=== PATIENT | female | born 1990 | race African-American/Black ===

== ENCOUNTER 2023-05-29 10:19 | Emergency (ER) | payer OTHER, SELFPAY ==
--- NOTE | ~2023-05-29 | XR_ITS ---
EXAMINATION: XR chest 2V DATE: 05/29/2023 10:52 INDICATION: Chest pain TECHNIQUE: PA and lateral views of the chest are obtained. COMPARISON: 01/30/2023 FINDINGS: The lungs are free of acute opacities. No pleural effusion or pneumothorax. The cardiomedia stinal silhouette is normal. There are 46 degrees of thoracic dextroscoliosis. IMPRESSION: 1. No acute cardiopulmonary abnormality. Reviewed, dictated and finalized at location L. PAINTER
[2023-05-29 10:23] VITALS: BP 121/85; PULSE 78; RESP 16; O2SAT 100
--- NOTE | 2023-05-29 10:30 | ECG_ITS ---
Measurements Intervals [place] Rate: 83 P: 57 [place]: 163 QRS: 22 QRSD: 90 T: 43 QT: 353 QTc: 415 Interpretive Statements SINUS RHYTHM NORMAL NORMAL ELECTROCARDIOGRAM NO PREVIOUS ECG AVAILABLE FOR COMPARISON Electronically Signed On 05-29-2023 17:52:52 DIP FILLER by Nelson Lamar M.D.
[2023-05-29 10:39] LABS: Basophils Absolute Auto 0.1 K/mm3 (0.0-0.1); Basophils Percent Auto 0.8 % (0.2-1.2); Eosinophils Absolute Auto 0.3 K/mm3 (0-0.3); Eosinophils Percent Auto 4.1 % (0-4.4); Hematocrit 39.4 % (37.0-47.0); Hemoglobin 12.6 g/dL (12.0-15.0); Immature Granulocyte Absolute 0.02 K/mm3 (0.00-0.031); Immature Granulocyte Percent A 0.3 % (0-0.5); Lymphocytes Absolute Auto 2.67 K/mm3 (0.9-3.2); Lymphocytes Percent Auto 40.3 % (18.3-44.2); Mean Corpuscular Hemoglobin 28.1 pg (26-34); Mean Corpuscular Volume 87.9 fl (80-100); Mean Platelet Volume 10.2 fl (7.4-10.4); Monocytes Absolute Auto 0.4 K/mm3 (0.1-0.6); Monocytes Percent Auto 6.2 % (2.6-8.5); Neutrophils Absolute Auto 3.2 K/mm3 (1.3-6.7); Neutrophils Percent Auto 48.3 % (45.5-73.1); Platelet Count Result 275 k/mm3 (150-375); Red Blood Count 4.48 M/mm3 (4.2-5.4); Red Cell Distribution Width 12.8 % (11.5-14.5); White Blood Count 6.6 K/mm3 (4.5-10.0)
[2023-05-29 10:43] VITALS: BP 122/85; PULSE 82; RESP 21; O2SAT 100
[2023-05-29 10:51] LABS: Alanine Aminotransferase 13 U/L (6-35); Albumin Level 4.2 g/dL (3.5-5.1); Alkaline Phosphatase 60 U/L (38-126); Anion Gap 5 mmol/L (8-16); Aspartate Amino Transferase 23 U/L (14-36); Bilirubin,Total 0.4 mg/dL (0.2-1.3); Blood Urea Nitrogen 12 mg/dL (7-17); Calcium 9.4 mg/dL (8.4-10.2); Carbon Dioxide 18 mmol/L (22-30); Chloride 107 mmol/L (98-107); Estimated CRCL calculation 110 ml/min; Estimated Glomerular Filt Rate > 60; Glucose 122 mg/dL (65-110); Lipase 282 U/L (23-300); Potassium 3.5 mmol/L (3.4-5.0); Sodium 130 mmol/L (137-145)
[2023-05-29 11:00] LABS: Troponin I < 0.012 ng/mL (0.000-0.034)
[2023-05-29 11:28] VITALS: PULSE 74
[2023-05-29 11:28] LABS: Prothrombin Time 13.4 Seconds (11.1-14.7)
[2023-05-29 11:29] LABS: Partial Thromboplastin Time 27.5 SECONDS (22.3-36.8)
[2023-05-29 12:01] VITALS: PULSE 80; RESP 16; O2SAT 100
[2023-05-29] MEDS: KETOROLAC 30 MG/ML VIAL (*BKC) IV PUSH (13:17)
--- NOTE | 2023-05-29 13:30 | ECG_ITS ---
Measurements Intervals [place] Rate: 74 P: 47 [place]: 157 QRS: 9 QRSD: 89 T: 18 QT: 361 QTc: 402 Interpretive Statements SINUS RHYTHM NORMAL ELECTROCARDIOGRAM COMPARED TO ECG 05/29/2023 10:28:10 NO SIGNIFICANT CHANGES Electronically Signed On 05-29-2023 18:05:35 POLE MAKER by Nelson Lamar M.D.
[2023-05-29 13:52] LABS: Troponin I < 0.012 ng/mL (0.000-0.034)
--- NOTE | 2023-05-29 14:15 | ED.CHESTPAIN ---
HPI - Chest Pain General Chief Complaint: Chest Pain Stated Complaint: CP, headache Time Seen by Provider: 05/29/23 12:05 History of Present Illness HPI narrative: Patient is a 32-year-old female who presents ER with multiple complaints. First complaint is aching headache and back/neck pain. Chronic pain for her related to her scoliosis. She takes meloxicam home. 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 No numbness or weakness to the leg. She developed some central chest tightness with lightheadedness small at work. EMS was called and she received aspirin and nitroglycerin. This helped her discomfort. She is in no distress this time. She has history of asthma but has no wheezing and did not receive a breathing treatment. No history of heart disease. Related Data Allergies Allergy/AdvReac Type Severity Reaction Status Date / Time No Known Allergies Allergy Verified 05/29/23 10:32 Review of Systems Review of Systems: All systems reviewed & are unremarkable except as noted in HPI and below Constitutional: Constitutional: Denies chills, Denies fatigue and Denies fever(s) ENT: Reports system reviewed and no additional complaints, except as documented Cardiovascular: Cardiovascular: Reports chest pain, Denies rapid heart rate and Denies radiating jaw, neck or arm pain Respiratory: Respiratory: Reports no additional respiratory complaints Gastrointestinal: Gastrointestinal: Reports no additional gastrointestinal complaints Musculoskeletal: Musculoskeletal: Reports back pain, Denies myalgias, Denies arthralgias and Denies joint swelling Neurologic: Reports headache(s), Denies focal weakness and Denies numbness PMFSH Past Medical History Medical History (Updated 05/29/23 @ 14:21 by Christofer Bennett MD) Pre-diabetes Scoliosis Surgical History Surgical History (Updated 05/29/23 @ 14:21 by Christofer Bennett MD) No pertinent past surgical history Exam Narrative: GENERAL: Well-appearing, well-nourished, and in no acute distress. HEAD: Normocephalic, atraumatic. EYES: PERRL and EOMI. ENT: Mucous membranes moist. TMs normal bilaterally. No cerumen impaction. NECK: Supple. Full range of motion without on tenderness. CHEST: Clear to auscultation. No respiratory distress. HEART: Regular rate and rhythm. Normal peripheral pulses. ABDOMEN: Soft, nontender, nondistended. EXTREMITIES: Normal range of motion. No edema. NEURO: Alert and oriented x3. PSYCH: Normal mood and affect. Course Course Emergency Course: Patient resting comfortably. Troponin negative x2 repaired reassuring EKG. No point here. Discussed differential including vertigo, arrhythmia, anxiety, or heart disease. Heart score low and her written discharge home. Vital Signs Vital signs: Vital Signs Pulse Rate 78 05/29/23 10:23 Respiratory Rate 16 05/29/23 10:23 Blood Pressure 121/85 05/29/23 10:23 Pulse Oximetry 100 05/29/23 10:23 Oxygen Delivery Room Air 05/29/23 10:23 Pulse Rate 80 05/29/23 12:01 Respiratory Rate 16 05/29/23 12:01 Blood Pressure 122/85 05/29/23 10:43 Pulse Oximetry 100 05/29/23 12:01 Oxygen Delivery Room Air 05/29/23 10:23 MDM - Chest Pain Lab Data 05/29/23 10:34 05/29/23 10:34 Labs: Lab Results 05/29/23 05/29/23 05/29/23 Range/Units 10:34 11:11 13:24 WBC 6.6 (4.5-10.0) K/mm3 RBC 4.48 (4.2-5.4) M/mm3 Hgb 12.6 (12.0-15.0) g/dL Hct 39.4 (37.0-47.0) % MCV 87.9 (80-100) fl MCH 28.1 (26-34) pg MCHC 32.0 (32-36) g/dl RDW 12.8 (11.5-14.5) % Plt Count 275 (150-375) k/mm3 MPV 10.2 (7.4-10.4) fl Immature Gran % (Auto) 0.3 (0-0.5) % Neut % (Auto) 48.3 (45.5-73.1) % Lymph % (Auto) 40.3 (18.3-44.2) % [place] % (Auto) 6.2 (2.6-8.5) % Eos % (Auto) 4.1 (0-4.4) % Baso % (Auto) 0.8 (0.2-1.2) % Lymph # (Auto) 2.67
[2023-05-29 14:25] VITALS: BP 142/80; PULSE 78; RESP 16; O2SAT 99
== END 2023-05-29 14:26 | disposition home or self-care (01) ==
PROVIDERS: Student in an Organized Health Care Education/Training Program; Emergency Provider Emergency Medicine; PCP Nurse Practitioner Family
DX: R51.9 Headache, unspecified (principal); R07.9 Chest pain, unspecified; R73.03 Prediabetes
CPT/HCPCS: 36415; 71046; 80053; 83690; 84484; 85025; 85610; 85730; 93005; 96374; 99284; J1885

== ENCOUNTER 2023-08-08 12:18 | Outpatient (CLI) | payer OTHER, SELFPAY ==
[2023-08-08 12:42] LABS: Hematocrit 39.8 % (37.0-47.0); Hemoglobin 12.4 g/dL (12.0-15.0); Mean Corpuscular HGB Conc 31.2 g/dl (32-36); Mean Corpuscular Hemoglobin 28.3 pg (26-34); Mean Corpuscular Volume 90.9 fl (80-100); Mean Platelet Volume 9.8 fl (7.4-10.4); Platelet Count Result 301 k/mm3 (150-375); Red Blood Count 4.38 M/mm3 (4.2-5.4); Red Cell Distribution Width 12.4 % (11.5-14.5)
[2023-08-08 13:13] LABS: Alanine Aminotransferase 17 U/L (6-35); Albumin Level 4.6 g/dL (3.5-5.1); Alkaline Phosphatase 71 U/L (38-126); Anion Gap 9 mmol/L (8-16); Aspartate Amino Transferase 23 U/L (14-36); Bilirubin,Total 0.3 mg/dL (0.2-1.3); Blood Urea Nitrogen 9 mg/dL (7-17); Calcium 9.2 mg/dL (8.4-10.2); Carbon Dioxide 24 mmol/L (22-30); Chloride 107 mmol/L (98-107); Cholesterol 196 mg/dL (0-200); Estimated Glomerular Filt Rate > 60; Glucose 94 mg/dL (65-110); HDL Direct 58 mg/dL; Potassium 3.7 mmol/L (3.4-5.0); Sodium 140 mmol/L (137-145); Triglycerides 74 mg/dL (<150)
[2023-08-08 13:24] LABS: LDL Cholesterol Direct 107 mg/dL
[2023-08-08 13:27] LABS: Hemoglobin A1C 5.7 % (<5.7); Vitamin D 25 Hydroxy 28.3 ng/mL
== END 2023-08-08 12:19 | disposition home or self-care (01) ==
LOC: ANHLAB 12:19
PROVIDERS: PCP Family Medicine; Visit Provider Family Medicine
DX: G43.909 Migraine, unspecified, not intractable, without status migrainosus (principal); J45.909 Unspecified asthma, uncomplicated; R73.03 Prediabetes; T78.40XA Allergy, unspecified, initial encounter; Z76.89 Persons encountering health services in other specified circumstances; R53.83 Other fatigue
CPT/HCPCS: 36415; 80053; 80061; 82306; 83036; 84443; 85027

== ENCOUNTER 2023-08-19 15:20 | Emergency (ER) | payer OTHER, SELFPAY ==
[2023-08-19 15:34] VITALS: BP 124/88; PULSE 86; RESP 20; TEMP 36.8; O2SAT 100
[2023-08-19 15:37] LABS: Glucose Point of Care 92 mg/dl (65-105)
[2023-08-19 17:13] LABS: Glucose Point of Care 83 mg/dl (65-105)
--- NOTE | 2023-08-19 17:14 | ED.RECABL ---
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 She has had hypoglycemic episodes in the past, she used to be considered prediabetic but lost a lot of weight. She states that she starts feeling shaky when her blood sugar is low and it gets better when she eats something, however it seems to happen pretty frequently. Just got a new doctor a week ago and still needs to follow up with endo. Not on any medications. Related Data Home Medications Medication Instructions Recorded Confirmed cetirizine 10 mg tablet 10 mg PO DAILY PRN 08/07/23 cyclobenzaprine 10 mg tablet 10 mg PO TID 08/07/23 diclofenac sodium 50 mg 50 mg PO DAILY 08/07/23 tablet,delayed release epinephrine 0.3 mg/0.3 mL 0.3 mg subcut ONCE 08/07/23 injection syringe fluticasone furoate 50 inhalation 08/07/23 mcg/actuation blister powder for inhalation sumatriptan succinate 50 mg tablet See Rx Instructions PO .COMPLEX 08/07/23 topiramate 50 mg tablet 50 mg PO QHS 08/07/23 tramadol 50 mg tablet 50 mg PO Q4H PRN 08/07/23 Allergies Allergy/AdvReac Type Severity Reaction Status Date / Time No Known Allergies Allergy Verified 08/19/23 15:20 Review of Systems Review of Systems: CONST: No fever. HEENT: No sore throat C/V: No chest pain RESP: No cough GI: No abdominal pain : No dysuria. M/S: No joint pain. SKIN: No rash. NEURO: [No headache or focal numbness or weakness] PSYCH: [No depression] [facility] Past Medical History Medical History (Updated 08/19/23 @ 17:13 by Richelle Richard MD) Asthma Pre-diabetes Scoliosis Surgical History Surgical History (Updated 05/29/23 @ 14:21 by Christofer Bennett MD) No pertinent past surgical history Family History Family History (Updated 08/07/23 @ 11:56 by Georgina Arizmendi CMA) Mother Hypertension Asthma Heart disease Diabetes mellitus Acute myocardial infarction Father Acute myocardial infarction Heart disease Social History Social History Smoking status: Never smoker Exam Narrative: EXAMINATION OF ORGAN SYSTEMS/BODY AREAS: Constitutional: Vital signs per nursing GENERAL:[No acute distress, non-toxic appearing.] HEAD: Normal with no signs of head trauma. EYES: EOMI, conjunctiva normal ENT: Hearing grossly intact LUNGS: Nonlabored breathing. HEART: [Regular rate and rhythm] ABD: No distension EXT: Normal range of motion SKIN: [No rashes or lesions.] NEURO: [Alert and oriented x 3. No gross focal sensory or strength deficits.] PSYCH: Normal affect Course Vital Signs Vital signs: Vital Signs Temperature 98.2 F 08/19/23 15:34 Pulse Rate 86 08/19/23 15:34 Respiratory Rate 20 08/19/23 15:34 Blood Pressure 124/88 08/19/23 15:34 Pulse Oximetry 100 08/19/23 15:34 Temperature 98.2 F 08/19/23 15:34 Pulse Rate 86 08/19/23 15:34 Respiratory Rate 20 08/19/23 15:34 Blood Pressure 124/88 08/19/23 15:34 Pulse Oximetry 100 08/19/23 15:34 MDM - Recheck/Abnormal Lab/Rx MDM Narrative Medical decision making narrative: Patient presented here initially due to concern for low blood sugar, her blood glucose here was normal, and I did have long discussion with the patient, she had already had her blood work done a week ago and at this point I do not think there are any further test I can do in the emergency room to be helpful, and she does not want to repeat any basic labs at this time which I feel is very reasonable, I did discuss with the patient she would likely benefit from Endocrinology referral and potential specialized testing such as glucose tolerance test and insulin testing in case she is having insulin secretion issue. She has been here for 2 hours and repeat blood
[2023-08-19 17:15] VITALS: BP 142/86; PULSE 88; RESP 16; O2SAT 98
== END 2023-08-19 17:16 | disposition home or self-care (01) ==
PROVIDERS: Emergency Provider Emergency Medicine; PCP Family Medicine
DX: E16.2 Hypoglycemia, unspecified (principal); J45.909 Unspecified asthma, uncomplicated
CPT/HCPCS: 82948; 99282

== ENCOUNTER 2023-08-27 08:02 | Outpatient (CLI) | payer OTHER, SELFPAY ==
[2023-08-30 09:43] LABS: C-Peptide 1.93 ng/mL (0.80-3.85); Insulin Level Total 8.7 uIU/mL (<=18.4)
[2023-09-03 23:01] LABS: Free Insulin 8.2 uIU/mL (1.5-14.9)
== END 2023-08-27 08:03 | disposition home or self-care (01) ==
PROVIDERS: PCP Family Medicine; Visit Provider Family Medicine
DX: E16.2 Hypoglycemia, unspecified (principal)
CPT/HCPCS: 36415; 83525; 83527; 84681; 86337

== ENCOUNTER 2023-08-29 10:44 | Outpatient (CLI) | payer OTHER, SELFPAY ==
--- NOTE | 2023-09-05 12:07 | WPDHOLTEREM ---
Holter/Event Monitor Holter/Event Monitor Date of procedure: 08/29/23 Holter/Event Procedure: 48 Hr Holter Monitor Indications: Palpitations Conclusion: 1. 48 hour holter monitor on 08/29/23. 2. Underlying rhythm is sinus rhythm. HR range 54-141 bpm; average HR 89 bpm. HR at 141 bpm was at 08:34. 3. There are 9 premature supraventricular complexes. No supraventricular tachycardia. 4. There is 1 premature ventricular complex. No ventricular tachycardia. 5. No sinoatrial or atrioventricular blocks. No significant pauses greater than 2 seconds. 6. No symptoms available for correlation.
== END 2023-08-29 10:45 | disposition home or self-care (01) ==
LOC: ANHCARD 10:45
PROVIDERS: PCP Family Medicine; Visit Provider Family Medicine
DX: R00.2 Palpitations (principal)
CPT/HCPCS: 93225; 93226

== ENCOUNTER 2023-10-06 14:41 | Outpatient (CLI) | payer OTHER, SELFPAY ==
--- NOTE | ~2023-10-06 | XR_ITS ---
EXAMINATION: XR wrist LT min 3V DATE: 10/06/2023 14:52 INDICATION: Medial left wrist pain. TECHNIQUE: 4 views of left wrist were obtained. COMPARISON: None. FINDINGS: Bone alignment is normal. No fracture. Joint spaces are normal. IMPRESSION: 1. Normal left wrist. Reviewed, dictated and finalized at location A. IMPRESSION: 1. Normal left wrist.
== END 2023-10-06 14:42 | disposition home or self-care (01) ==
LOC: ANHBWCIMG 14:43
PROVIDERS: PCP Family Medicine; Visit Provider Family Medicine
DX: M25.532 Pain in left wrist (principal)
CPT/HCPCS: 73110

== ENCOUNTER 2023-10-21 12:36 | Outpatient (CLI) | payer OTHER, SELFPAY ==
[2023-10-21 13:54] LABS: Influenza A QL RT-PCR Negative (Negative); Influenza B QL RT-PCR Negative (Negative); RSV RNA, RT-PCR Negative (Negative); SARS-CoV-2 RNA PCR Negative (Negative)
== END 2023-10-21 12:37 | disposition home or self-care (01) ==
LOC: ANHLAB 12:37
PROVIDERS: PCP Family Medicine; Visit Provider Family Medicine
DX: Z20.822 Contact with and (suspected) exposure to COVID-19 (principal)
CPT/HCPCS: 87637

== ENCOUNTER 2024-05-28 12:26 | Outpatient (CLI) | payer OTHER, SELFPAY ==
--- NOTE | ~2024-05-28 | US_ITS ---
EXAMINATION: US pelvic complete w TV DATE: 05/28/2024 13:21 INDICATION: Hypertrophy of uterus. TECHNIQUE: Multiple transabdominal and transvaginal sonographic images of the pelvis were obtained. COMPARISON: None. FINDINGS: TRANSABDOMINAL ULTRASOUND: The uterus measures 10.0 x 4.8 x 6.3 cm. There is no free fluid in the pelvis. TRANSVAGINAL ULTRASOUND: The endometrial complex measures 2 mm in thickness. There is a nabothian cysts in the cervix. There a re 8 mm and 9 mm intramural fibroids. The right ovary measures 5.3 x 3.7 x 4.6 cm. In the right ovary , there is a 2 cm cyst. The left ovary measures 4.2 x 3.1 x 2.9 cm. There is normal vascular flow in the ovaries. IMPRESSION: 1. Small uterine fibroids. 2. 4.6 cyst in right ovary, likely a follicular cyst. Reviewed, dictated and finalized at location A. HASING AND FISCAL CLERK
== END 2024-05-28 12:27 | disposition home or self-care (01) ==
PROVIDERS: PCP Family Medicine; Visit Provider Obstetrics & Gynecology
DX: N85.2 Hypertrophy of uterus (principal); N92.0 Excessive and frequent menstruation with regular cycle; D25.9 Leiomyoma of uterus, unspecified; N83.201 Unspecified ovarian cyst, right side
CPT/HCPCS: 76830; 76856

== ENCOUNTER 2024-05-29 13:59 | Outpatient (CLI) | payer OTHER, SELFPAY ==
--- NOTE | ~2024-05-29 | MR_ITS ---
EXAMINATION: MR thoracic spine wo con DATE: 05/29/2024 14:38 INDICATION: Radiculopathy, thoracic region. TECHNIQUE: Magnetic resonance imaging (MRI) of the thoracic spine was performed without intravenous c ontrast. Sagittal localizer T1-weighted FSE of the cervical spine was obtained. Thoracic spine sequen salvador included sagittal T2-weighted FSE, sagittal T1-weighted FSE, sagittal T2-weighted FS FSE, and axi al T2-weighted FSE. COMPARISON: None FINDINGS: There is 25 degrees levoscoliosis of cervicothoracic spine, 34 degrees dextroscoliosis of t horacic spine, and 21 degrees levoscoliosis of thoracolumbar spine. There is kyphosis of cervical spi ne. Vertebral body heights are normal. Intervertebral disc heights are normal. At T8-T9, there is a l eft foraminal protrusion. There is multilevel facet joint osteoarthritis, severe on the right at T5-T 6 and T6-T7. On the left, there is mild neural foraminal stenosis at T8-T9. On the right, there is mi l neural foraminal stenosis at T4-T5 and moderate neural foraminal stenosis at T5-T6 and T6-T7. The s misael cord signal intensity is normal. IMPRESSION: 1. Moderate right neural foraminal stenosis at T5-T6 and T6-T7. 2. Mild thoracic spondylosis. 3. Scoliosis. Reviewed, dictated and finalized at location A. ING SUPERVISOR
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
--- OUTSIDE RECORDS SUMMARY | 2024-06-05 20:30 | XMS_ITS | Referral Summary ---
Author Organization [facility] Address [address] [place] [address] Care Team Providers Care Jawbone Breaker Name Role Phone Kristopher Askew MD Primary Care Provider [phone] Source Comments [facility],non-owned Affiliates and Associated Physician Practices is amultiple site organization consisting of ambulatory clinics and hospital sitesin [place], [place], [place] and [place]. This disclosure is being madepursuant to the Care Everywhere program and may not contain all information available regarding this patient. Last updated 18.[facility] Allergies Active Allergy Reactions Criticality Noted Date Comments Latex Rash Medium 02/14/2017 Medications * Be aware that medications may not be up to date on this document. Alwaysverify current medications with the patient. Medication Sig Dispensed Refills Start Date End Date Status albuterol HFA (PROVENTIL HFA) 108 (90 BASE) MCG/ACT inhaler 2 Inhaler 1 02/14/2017 Active raNITIdine (ZANTAC) 150 MG tablet 5 12/25/2016 Active EPINEPHrine (EPIPEN) 0.3 MG/0.3ML auto-injector pen 12/06/2016 Active cetirizine (ZYRTEC) 10 MG tablet Take 10 mg by mouth DAILY. 30 tablet 3 02/14/2017 Active beclomethasone dipropionate (QVAR) 40 MCG/ACT inhaler Inhale 2 puffs by mouth BID. 1 Inhaler 3 02/14/2017 Active DULoxetine (CYMBALTA) 30 MG capsule 2 12/25/2016 Active methocarbamol (Robaxin) 750 MG tablet TAKE ONE TABLET BY MOUTH EVERY 6 HOURS NEEDED FOR MUSCLE SPASMS 20 tablet 09/30/2023 09/29/2024 Active hydrOXYzine HCl (Atarax) 50 MG tablet TAKE ONE TABLET BY MOUTH 3 TIMES A DAY NEEDED FOR ANXIETY 30 tablet 10/01/2023 09/30/2024 Active Social History Tobacco Use Types Packs/Day Years [...] on file Sexual Orientation Not on file Last Filed Vital Signs Vital Sign Reading Time Taken Comments Blood Pressure 130/89 01/21/2024 6:10 PM CDT Pulse 86 01/21/2024 6:10 PM CDT Temperature 36.8 ??C (98.3 ??F) 01/21/2024 6:10 PM CD T Respiratory Rate 18 01/21/2024 6:10 PM CDT Oxygen Saturation 100% 01/21/2024 6:10 PM CDT Inhaled Oxygen Concentration - - Weight 75.8 kg (167 lb) 01/21/2024 6:10 PM CDT Height 157.5 cm (5' 2 ) 01/21/2024 6:10 PM CDT Body Mass Index 30.54 01/21/2024 6:10 PM CDT Plan of Treatment Not on file Care Teams Jawbone Breaker Relationship Specialty Start Date End Date Kristopher Askew MD [address] [place] [id number] PCP - General Family Medicine 09/30/23
--- OUTSIDE RECORDS SUMMARY | 2024-06-05 20:30 | XMS_ITS | Encounter Summary ---
Author Organization [facility] Address [address] [place] [address] Care Team Providers Care Interior Block Wirer Name Role Phone Kristopher Askew MD Primary Care Provider [phone] Encounter Details Date Type Department Care Team (Latest Contact Info) Description 01/21/2024 Travel Social History Tobacco Use Types Packs/Day Years [...] on file documented as of this encounter Plan of Treatment Not on file documented as of this encounter Visit Diagnoses Not on filedocumented in this encounter Care Teams Interior Block Wirer Relationship Specialty Start Date End Date Kristopher Askew MD [address] [place] [phone] PCP - General Family Medicine 09/30/23 documented as of this encounter
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
--- OUTSIDE RECORDS SUMMARY | 2024-06-05 20:30 | XMS_ITS | Encounter Summary ---
Author Organization [facility] Address [address] [place] [address] Care Team Providers Care Housekeeper Caregiver Name Role Phone Kristopher Askew MD Primary Care Provider [phone] Reason for Referral * Consultation (Routine) - Authorized Specialty Diagnoses / Procedures Referred By Daniel foreman Referred To Contact Diagnoses Visit for wound check Visit for suture removal Arcelia Vásquez APRN-CNP [address] [place] [address] Mani Triana, [facility] [address] [facility] [address] [place] [address] Referral ID Status Reason Start Date Expiration Date Visits Requested Visits Authorized [id number] Authorized Specialty Services Required 01/21/2024 01/20/2025 1 1 Reason for Visit * Reason Comments Wound/Incision Check Patient reports alix pping on glass leading to cuts on her left foot on her toes. Got stitches at [facility] two weeks ago, is concerned that they're infected Encounter Details Date Type Department Care Team (Late st Contact Info) Description 01/21/2024 6:26 PM CDT - 01/21/2024 6:58 PM CDT Emergency ER at [facility] [address] [place], [place] [id number] Visit for wound check; Visit for suture removal Discharge Disposition: Home or Self Care Social History Tobacco Use Types Packs/Day [...] Mass Index 30.54 01/21/2024 6:10 PM CDT documented in this encounter Discharge Instructions * Discharge Instructions* Arcelia Vásquez APRN-CNP - 01/21/2024 6:49 PM CDT You had two stitches removed today. Please continue to rest, ice, elevate your affected digit. Please apply neosporin/bacitracin ointment and cover with a dressing daily. Avoid still or standing water such as pools, lakes, baths and hottubs while area is still healing. Please make sure you follow up with podiatry for re-evaluation due to ongoing pain and limited range of motion of the affected digit. Return if you develop drainage, worsening redness, warmth, swelling, fever, or chills. documented in this encounter Medications at Time [...] EPINEPHrine (EPIPEN) 0.3 MG/0.3ML auto-injector pen 12/06/2016 hydrOXYzine HCl (Atarax) 50 MG tablet TAKE ONE TABLET BY MOUTH 3 TIMES A DAY NEEDED FOR ANXIETY 30 tablet 10/01/2023 09/30/2024 methocarbamol (Robaxin) 750 MG tablet TAKE ONE TABLET BY MOUTH EVERY 6 HOURS NEEDED FOR MUSCLE SPASMS 20 tablet 09/30/2023 09/29/2024 raNITIdine (ZANTAC) 150 MG tablet 5 12/25/2016 documented as of this encounter ED Notes * Arcelia Vásquez, MINERVA-SUPERINTENDENT METERS - 01/21/2024 6:12 PM CDTAssociated Order(s): Suture Removal [facility] Note 01/21/2024 18:13 Patient presents with a chief complaint of Chief Complaint Patient presents with Wound/Incision Check Patient reports stepping on glass leading to cuts on her left foot on her toes. Got stitches at [facility] two weeks ago, is concerned that they're infected History of present illness: Jenny Johnson is a pleasant 33 year old female who presented to the emergency department for wound check. Patient stated she stepped on glass 01/11/24 [address] evaluated [facility] ED. Patient had xray of left foot performed without evidence of fracture or foreignbody. She had 2 stitches placed to left third toe. Patient reported pain in foot since that time. Reported some limitations with flexing and extending toe. No history of diabetes. Has not yet had sutures removed. No drainage, fever, chills, joint swelling, redness of foot or toes. No past medical history on file. Social Determinants of Health Tobacco Use: Low Risk (09/29/2023) Patient History Smoking Tobacco Use: Never Smokeless Tobacco Use: Never Passive Exposure: Not on file Alcohol Use: Not At Risk (09/29/2023) AUDIT-C Frequency of Alcohol Consumption: Never Average Number of Drinks: Patient does not drink Frequency of Binge Drinking: Never Financial Resource Strain: Not on file Food Insecurity: Not on file Transportation Needs: Not on file Stress: Not on file Depression: Not on file Housing Stability: Not on file Past Surgical History: Procedure Laterality Date Back Surgery sounds like myelomenigocele Section No current facility-administered medications on file prior to encounter. Current Outpatient Medications on File Prior to Encounter Medication Sig Dispense Refill albuterol HFA (PROVENTIL HFA) 108 (90 BASE) MCG/ACT inhaler 2 Inhaler 1 beclomethasone dipropionate (QVAR) 40 MCG/ACT inhaler Inhale 2 puffs by mouth BID. 1 Inhaler 3 cetirizine (ZYRTEC) 10 MG tablet Take 10 mg by mouth DAILY. 30 tablet 3 DULoxetine (CYMBALTA) 30 MG capsule 2 EPINEPHrine (EPIPEN) 0.3 MG/0.3ML auto-injector pen methocarbamol (Robaxin) 750 MG tablet Take 1 (one) tablet by mouth every 6 hours as needed for Muscle Spasms 20 tablet 0 raNITIdine (ZANTAC) 150 MG tablet 5 Review of Systems Constitutional: Negative for chills and fever. Respiratory: Negative for shortness of breath. Cardiovascular: Negative for chest pain and leg swelling. Gastrointestinal: Negative for nausea and vomiting. Genitourinary: Negative for flank pain. Musculoskeletal: Negative for myalgias. Stitches to left toe Psychiatric/Behavioral: Negative for suicidal ideas. Physical Exam Vitals reviewed. Constitutional: Appearance: Normal appearance. She is not ill-appearing. HENT: Head: Normocephalic and atraumatic. Cardiovascular: Rate and Rhythm: Normal rate. Pulmonary: Effort: Pulmonary effort is normal. No respiratory distress. Breath sounds: No stridor. Abdominal: Tenderness: There is no guarding. Musculoskeletal: Right lower leg: No edema. Left lower leg: No edema. Skin: General: Skin is warm. Comments: Two intact stitches to plantar surface of left third toe without erythema, warmth, swelling, or drainage. Subjective limitation of flexion/extension of left third toe but able to make attempts against resistance. Sensation intact. Normal cap refill < 2 seconds. No erythema or tenderness to surrounding surfaces Neurological: General: No focal deficit present. Mental Status: She is alert and oriented to person, place, and time. Psychiatric: Mood and Affect: Mood normal. Behavior: Behavior normal. Suture Removal Date/Time: 01/21/2024 6:48 PM Performed by: Arcelia Vásquez APRN-CNP Authorized by: Arcelia Vásquez APRN-CNP Consent: Consent obtained: Verbal Consent given by: Patient Risks, benefits, and alternatives were discussed: yes Risks discussed: Bleeding, pain and wound separation Alternatives discussed: No treatment and delayed treatment [place] protocol: Immediately prior to procedure, a time out was called: yes Location: Location: Lower extremity Lower extremity location: Toe Toe location: L third toe Procedure details: Wound appearance: No signs of infection, good wound healing, nonpurulent, tender and clean Number of sutures removed: 2 Post-procedure details: Post-removal: Dressing applied Procedure completion: Tolerated well, no immediate complications Complete vital signs reviewed. BP 130/89 Pulse 86 Temp 98.3 ??F (36.8 ??C) (Oral) Resp 18 Ht 1.575 m (5' 2 ) Wt 75.8 kg (167 lb) SpO2 100% Diagnostic tests ordered: Orders Placed This Encounter ED SUTURE REMOVAL Labs Reviewed - No data to display ED Course as of 01/21/24 185FriJan 21, [id number] This is a pleasant 33-year-old female who presented to emergency department for concerns of wound check. Patient suffered laceration to the plantar surface of the left 3rd digit 10 days ago. Stitches have been in place since that time. Patient wanted to be re-evaluated to make sure there was no signs of infection. On my exam, no erythema, warmth, swelling, drainage. Sensation intact. Able to make attempts with flexion extension. No surrounding tenderness or induration to other surfaces of the foot. No nail or nail bed injury. Laceration appears well healed. Likely time for suture removalgiven presence times 10 days. There are no convincing signs of infection to me. Encouraged Podiatryfollow-up given concerns of limitations in range of motion. I discussed results of all labs/imaging/ diagnostics (where applicable) performed in ED today with patient and addressed all questions and concerns. The patient is overall improved since arrival to ED. The patient is non-toxic appearing andhas stable vital signs. I reassured the patient that findings today do not suggest any life-threatening or emergent condition requiring admission. At this time, based on all clinical data provided and patient presentation, I feel it is safe for the patient to return home, as long as they are compliant with outpatient follow up. The patient agrees with and is happy with plan for discharge. Any prescription medications were discussed. I advised outpatient monitoring and routine follow up with PCPfor ongoing care needs and follow up from ER visit today. The patient understands appropriate follow-up care, including return to the ED for any new, persistent, or worsening symptoms. The patient agrees to return if they fail to improve with the regimen that was discussed today. [KG] 1830 2 stitches removed intact. Encouraged dressing changes, showering daily, strict monitoring andpodiatry follow up [KG] ED Course User Index [KG] Arcelia Vásquez, SHOE DRESSER-SUPERINTENDENT METERS Clinical Impressions as of 01/21/24 1850 Visit for wound check Visit for suture removal 6:49 PM Pt is medically stable for d/c home at this time. Diagnosis: Encounter Diagnoses Name Primary? Visit for wound check Visit for suture removal New Medications: New Prescriptions No medications on file I have advised the patient to follow-up with: Kristopher Askew MD [address] [place] [phone] Schedule an appointment as soon as possible for a visit in 3 days If symptoms worsen ER at [address] [address] Go to If symptoms worsen Disposition: Discharged This patient's initial work up was reviewed through the RME process and additional lab work, imaging, and treatment was added (if warranted) based on the patient's presenting complaint. Their presenting condition was appropriately managed through RME. I have given the patient instructions regardingher diagnosis, expectations, follow up, and return precautions. I explained to the patient that emergent conditions may arise and to return to the ER for any new, worsening, or persistent symptoms. Iexplained the importance of following up with her doctor--Kristopher Askew MD--(or the referralphysician) as instructed. The patient verbalized understanding of the discharge instructions. Discharge home in stable condition documented in this encounter Plan of Treatment Scheduled Referrals Name Type Priority Associated Diagnoses Order Schedule Referral to Podiatry Outpatient Referral Routine Visit for wound check Visit for suture removal 1 Occurrences starting 01/21/2024 until 01/20/2025 documented as of this encounter Procedures Procedure Name Priority Date/Time Associated Diagnosis Comments ED SUTURE REMOVAL Routine 01/21/2024 6:4 8 PM CDT documented in this encounter Results * Suture Removal (01/21/2024 6:48 PM CDT) Narrative Chloe Good MD - 01/21/2024 6:48 PM CDT Arcelia Vásquez APRN-CNP ? 01/21/2024 ??6:50 PM Suture Removal Date/Time: 01/21/2024 6:48 PM Performed by: Arcelia Vsáquez APRN-CNP Authorized by: Arcelia Vásquez APRN-CNP ?? Consent: ??Consent obtained: ??Verbal ??Consent given by: ??Patient ??Risks, benefits, and alternatives were discussed: yes ?Risks discussed: ??Bleeding, pain and wound separation ??Alternatives discussed: ??No treatment and delayed treatment [place] protocol: ??Immediately prior to procedure, a time out was called: yes ?? Location: ??Location: ??Lower extremity ??Lower extremity location: ??Toe ??Toe location: ??L third toe Procedure details: ??Wound appearance: ??No signs of infection, good wound healing, nonpurulent, tender and clean ??Number of sutures removed: ??2 Post-procedure details: ??Post-removal: ??Dressing applied ??Procedure completion: ??Tolerated well, no immediate complications Arcelia RODRIGUEZ PROCEDURE/MIN OR SURGICAL ORDERABLES documented in this encounter Visit Diagnoses Diagnosis Visit for wound check Encounter for other specified aftercare Visit for suture removal Encounter for removal of sutures documented in this encounter Care Teams Housekeeper Caregiver Relationship Specialty Start Date End Date Kristopher Askew MD [address] [place] [address] PCP - General Family Medicine 09/30/23 documented as of this encounter
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
--- OUTSIDE RECORDS SUMMARY | 2024-06-05 20:30 | XMS_ITS | Encounter Summary ---
Author Organization [facility] Address [address] [place] [address] Care Team Providers Care Powder Hand Name Role Phone Kristopher Askew MD Primary Care Provider [phone] Encounter Details Date Type Department Care Team (Latest Contact Info) Description 09/30/2023 Travel Social History Tobacco Use Types Packs/Day [...] on filedocumented in this encounter Care Teams Powder Hand Relationship Specialty Start Date End Date Kristopher Askew MD [address] [place] [phone] PCP - General Family Medicine 09/30/23 documented as of this encounter
--- OUTSIDE RECORDS SUMMARY | 2024-06-05 20:30 | XMS_ITS | Encounter Summary ---
Author Organization [facility] Address [address] [place] [address] Care Team Providers Care Fire Alarm Inspector Name Role Phone Kristopher Askew MD Primary Care Provider [phone] Encounter Details Date Type Department Care Team (Late st Contact Info) Description 09/30/2023 Orders Only ER at [facility] [address] [place] [address] Bebe Martin MD [address] [place] [address] Social History Tobacco Use Types Packs/Day Years [...] on filedocumented in this encounter Care Teams Fire Alarm Inspector Relationship Specialty Start Date End Date Kristopher Askew MD [address] [place] [address] PCP - General Family Medicine 09/30/23 documented as of this encounter
--- OUTSIDE RECORDS SUMMARY | 2024-06-05 20:30 | XMS_ITS | Clinical Summary ---
Author Organization [facility] [employer] Address [address] [place] [address] Care Team Providers Care Sap Security Consultant Name Role Phone Kristopher Askew MD Primary Care Provider [phone] Source Comments [facility],non-owned Affiliates and Associated Physician Practices is amultiple site organization consisting of ambulatory clinics and hospital sitesin [place], [place], [place] and [place]. This disclosure is being madepursuant to the Care Everywhere program and may not contain all information available regarding this patient. Last updated 18.[facility] [employer] Allergies Active Allergy Reactions Criticality Noted Date [...] FOR ANXIETY 30 tablet 10/01/2023 09/30/2024 Active Family History Medical History Relation Name Comments Allergic Rhinitis Brother Eczema Brother Allergic Rhinitis Mother Asthma Mother Diabetes - Type 2 Mother Eczema Mother Relation Name Status Comments Brother Mother Social History Tobacco Use Types Packs/Day Years [...] 01/21/2024 6:10 PM CDT Plan of Treatment Health Maintenance Due Date Last Done Comments PAP SMEAR 1991 HIV SCREENING 10/31/2006 HEPATITIS C SCREENING 10/27/2009 DTAP/TDAP/TD VACCINES (1 - Tdap) 10/31/2010 HEPATITIS B VACCINE (1 of 3 - 19+ 3-dose series) 10/31/2010 DEPRESSION SCREENING 06/09/2023 COVID-19 VACCINE (2 - 2023-2 5 season) 2024 09/23/2022 INFLUENZA VACCINE (#1) 2024 2, 04/28/2007 ZOSTER VACCINE (1 of 2) 10/31/2041 HIB VACCINE Aged Out No longer eligi ble based on patient's age to complete this topic HPV VACCINE Aged Out No longer eligi ble based on patient's age to complete this topic MENINGOCOCCAL VACCINE Aged Out No latoya brennan eligible based on patient's age to complete this topic PNEUMOCOCCAL VACCINE Aged Out No long er eligible based on patient's age to complete this topic Care Teams Sap Security Consultant Relationship Specialty Start Date End Date Kristopher Askew MD [address] [place] [phone] PCP - General Family Medicine 09/30/23
--- OUTSIDE RECORDS SUMMARY | 2024-06-05 20:30 | XMS_ITS | Encounter Summary ---
Author Organization [facility] Address [address] [place] [address] Care Team Providers Care Signing Teacher Name Role Phone Kristopher Askew MD Primary Care Provider [phone] Encounter Details Date Type Department Care Team (Late st Contact Info) Description 10/01/2023 Orders Only [facility] [address] [place] [phone] Kristopher Askew MD [address] [place] [address] Social History Tobacco Use Types Packs/Day Years [...] on filedocumented in this encounter Care Teams Signing Teacher Relationship Specialty Start Date End Date Kristopher Askew MD [address] [place] [address] PCP - General Family Medicine 09/30/23 documented as of this encounter
--- OUTSIDE RECORDS SUMMARY | 2024-06-05 20:31 | XMS_ITS | Encounter Summary ---
Author Organization [facility] Address [address] [place] [address]. [place] [address] [place] [address] Care Team Providers Care Filter Press Tender Name Role Phone Magy Medina PUBLIC AFFAIRS DIRECTOR Primary Care Provider [phone] Holthaus, Magy PUBLIC AFFAIRS DIRECTOR Primary Care Provider [phone] Holthaus, Magy PUBLIC AFFAIRS DIRECTOR Primary Care Provider [phone] Holthaus, Magy PUBLIC AFFAIRS DIRECTOR Primary Care Provider [phone] Holthaus, Magy PUBLIC AFFAIRS DIRECTOR Primary Care Provider [phone] Holthaus, Magy PUBLIC AFFAIRS DIRECTOR Primary Care Provider [phone] Holthaus, Magy PUBLIC AFFAIRS DIRECTOR Primary Care Provider [phone] Holthaus, Magy PUBLIC AFFAIRS DIRECTOR Primary Care Provider Holthaus, Magy PUBLIC AFFAIRS DIRECTOR Primary Care Provider [phone] , Generic Conversion Primary Care Provider Unavailable , Generic Conversion Primary Care Provider Unavailable Encounter Details Date Type Department Care Team (Late st Contact Info) Description 01/28/2016 Emergency [facility] Emergency Room [place], [place] [id number] Robb Belle MD [address] [place] [address] Social History Tobacco Use Types Packs/Day Years Used Date Smoking Tobacco: Never Assessed Comments Unknown Sex and Gender Information Value Date Recorded Sex Assigned at Not on file Legal Sex Female 7:19 PM CDT Gender Identity Not on file Sexual Orientation Not on file documented as of this encounter Plan of Treatment Not on file documented as of this encounter Procedures Procedure Name Priority Date/Time Associated Diagnosis Comments COMPREHENSIVE METABOLIC PANEL STAT 01/28/2016 12:13 AM CDT CHORIONIC GONADOTROPIN HCG QL STAT 01/28/2016 12:13 AM CDT CBC W/DIFF AUTOMATED STAT 01/28/2016 12:13 AM CDT documented in this encounter Results * CHORIONIC GONADOTROPINHCG QL (01/28/2016 12:13 AM CDT) PREG SCREEN-SERUM NEGATIVE 01/28/2016 12:29 AM CDT [facility] 01/28/2016 12:1 3 AM CDT 01/28/2016 12:17 AM CDT us Generic Conversion [facility] Final R esult [facility] [address] [place] [address], [place] [phone] * (ABNORMAL) COMPREHENSIVE METABOLIC PANEL (01/28/2016 12:13 AM CDT) GLUCOSE 179(H) 70 - 99 mg/dL 01/28/2016 12:35 AM CDT [facility] BUN 12 8 - 23 mg/dL 01/28/2016 12:35 AM CDT [facility] CREATININE S/P/B 0.68 0.60 - 1.10 mg/dL 01/28/2016 12:35 AM CDT [facility] SODIUM S/P/B 140 136 - 145 mmol/L 01/28/2016 12:35 AM CDT [facility] POTASSIUM S/P/B 3.3(L) 3.5 - 5.1 mmol/L 01/28/2016 12:35 AM CDT [facility] CHLORIDE S/P/B 102 98 - 107 mmol/L 01/28/2016 12:35 AM T [facility] CO2 25 22 - 29 mmol/L 01/28/2016 12:35 AM T [facility] BILIRUBIN TOTAL S/P/B <0.1(L) 0.2 - 1.2 mg/dL 01/28/2016 12:49 AM T [facility] CALCIUM S/P/B 9.2 8.6 - 10.2 mg/dL 01/28/2016 12:35 AM T [facility] ALKALINE PHOSPHATASE S/P/B 70 35 - 104 U/L 01/28/2016 12:35 AM T [facility] AST 13 0 - 32 U/L 01/28/2016 12:35 AM T [facility] TOTAL PROTEIN S/P/B 7.7 6.4 - 8.3 g/dL 01/28/2016 12:35 AM T [facility] ALBUMIN S/P/B 4.3 3.5 - 5.2 g/dL 01/28/2016 12:35 AM T [facility] ALT 14 0 - 33 U/L 01/28/2016 12:35 AM [facility] GLOBULIN 3.4 2.3 - 3.6 g/dL 01/28/2016 12:35 AM T [facility] A/G RATIO 1.3 1.0 - 2.0 01/28/2016 12:35 AM T [facility] ANION GAP 16 8 - 20 01/28/2016 12:35 AM T [facility] EGFR NON-AFR. AMER. >60 >60 mL/min/1.7 3m'2 01/28/2016 12:35 AM CDT [facility] EGFR AFR. AMER. >60 >60 mL/min/1.7 3m'2 01/28/2016 12:35 AM CDT [facility] Comment: NOTE: eGFR is not calculated for patients <18 years of age. This is an estimated GFR (CKD EPI) and should not be used for calculating drug doses. 01/28/2016 12:1 3 AM CDT 01/28/2016 12:17 AM CDT us Generic Conversion [facility] Final R esult [facility] [address] [place] [address], * (ABNORMAL) CBC W/DIFF AUTOMATED (01/28/2016 12:13 AM CDT) WBC 8.5 4.8 - 10.8 X10'3/uL 01/28/2016 12:20 AM CDT [facility] RBC 4.44 4.20 - 5.40 X10'6/uL 01/28/2016 12:20 AM CDT [facility] HGB 12.2 12.0 - 16.0 g/dL 01/28/2016 12:20 AM CDT [facility] HCT 37.5(L) 38.0 - 48.0 % 01/28/2016 12:20 AM CDT [facility] MCV 84.5 81.0 - 99.0 fL 01/28/2016 12:20 AM CDT [facility] MCH 27.5 27.0 - 31.0 pg 01/28/2016 12:20 AM CDT [facility] MCHC 32.5 32.0 - 36.0 g/dL 01/28/2016 12:20 AM CDT [facility] RDW 12.7 11.5 - 14.5 % 01/28/2016 12:20 AM CDT [facility] PLT 281 130 - 400 X10'3/uL 01/28/2016 12:20 AM CDT [facility] MPV 9.9 9.3 - 12.2 fL 01/28/2016 12:20 AM CDT [facility] DIFFERENTIAL TYPE AUTOMATED 01/28/2016 12:20 AM CDT [facility] NEUTROPHILS % 52.2 43.0 - 65.0 % 01/28/2016 12:20 AM CDT [facility] LYMPHOCYTES % 36.1 20.0 - 46.0 % 01/28/2016 12:20 AM CDT [facility] MONOCYTES % 8.3 5.0 - 12.0 % 01/28/2016 12:20 AM CDT [facility] EOSINOPHILS 2.8 1.0 - 3.0 % 01/28/2016 12:20 AM CDT [facility] BASOPHILS 0.5 0.0 - 1.0 % 01/28/2016 12:20 AM CDT [facility] IMMATURE GRANS % 0.1 0.0 - 1.0 % 01/28/2016 12:20 AM CDT [facility] 01/28/2016 12:1 3 AM CDT 01/28/2016 12:17 AM CDT us Generic Conversion [facility] Final R esult [facility] [address] [place] [address], documented in this encounter Visit Diagnoses Diagnosis Asthma with acute exacerbation (HHS/HCC) Unspecified asthma, with exacerbation documented in this encounter Care Teams Filter Press Tender Relationship Specialty Start Date End Date Magy Medina NP [address] [facility] [address] [place] [address] PCP - General 12/23/16 01/10/24 Magy Medina NP [address] [place] [address] PCP - General 12/05/16 12/22/16 Magy Medina NP [address] [place] [address] PCP - General 11/27/16 12/04/16 Magy Medina NP [address] [place] [address] PCP - General 11/20/16 11/26/16 Magy Medina NP [address] [place] [address] PCP - General 11/15/16 11/19/16 Magy Medina NP [address] [place] [address] PCP - General 10/31/16 11/14/16 Magy Medina, [place] [address] [place] [address] PCP - General 10/29/16 10/30/16 Magy Medina NP [address] [place] [address] PCP - General 10/24/16 10/28/16 Magy Medina NP [address] [facility] [address] [place] [address] PCP - General 10/22/16 10/23/16 , Generic Conversion, PCP - General 10/14/16 , Generic Conversion, PCP - General 01/28/16 7 documented as of this encounter
--- OUTSIDE RECORDS SUMMARY | 2024-06-05 20:31 | XMS_ITS | Clinical Summary ---
Author Organization [facility] Address [address] [place] [address]. [place] [address] [place] [address] Care Team Providers Care Auto Parker Name Role Phone Kristopher Askew MD Primary Care Provider [phone] Allergies Active Allergy Reactions Criticality Noted Date Comments Latex Rash Medium 02/14/2017 Medications albuterol sulfate HFA 108 (90 BASE) MCG/ACT inhaler Inhale 2 puffs into the lungs every 6 (six) hours as needed for Wheezing. Active ibuprofen 600 MG tablet Take 1 tablet (600 mg total) by mouth every 8 (eight) hours as needed for Pain. 30 tablet 12/17/2017 Active hydroCHLOROthiaz lanie (HYDRODIURIL) 25 MG tablet Take 1 tablet (25 mg total) by mouth every morning. 30 tablet 08/02/2022 Active meloxicam (MOBIC) 15 MG tablet Take 1 tablet (15 mg total) by mouth daily. 20 tablet 05/22/2023 Active diclofenac EC (VOLTAREN) 50 MG tablet Take 1 tablet (50 mg total) by mouth 2 (two) times daily. 60 tablet 07/08/2023 Active cyclobenzaprine (FLEXERIL) 10 MG tablet Take 1 tablet (10 mg total) by mouth 3 (three) times daily as needed for Muscle Spasms. 16 tablet 07/08/2023 Active Active Problems Problem Noted Date Diagnosed Date Lumbar radiculopathy 06/16/2017 Immunizations Name Administration Dates Next Due Tdap (Boostrix) 01/11/2024 Family History Medical History Relation Comments Asthma Mother Diabetes Mother Hypertension Mother Stroke Mother Relation Status Comments Mother Social History Tobacco Use Types Packs/Day Years Used Date Smoking Tobacco: Never Smokeless Tobacco: Never Alcohol Use Standard Drinks/Week Comments No 0 (1 standard drink = 0.6 oz pur e alcohol) Comments No Sex and Gender Information Value Date Recorded Sex Assigned at Not on file Legal Sex Female 7:19 PM CDT Gender Identity Not on file Sexual Orientation Not on file Last Filed Vital Signs Vital Sign Reading Time Taken Comments Blood Pressure 131/90 01/11/2024 9:04 AM CDT Pulse 74 01/11/2024 9:04 AM CDT Temperature 36.6 ??C (97.8 ??F) 01/11/2024 6:15 AM CD T Respiratory Rate 18 01/11/2024 9:04 AM CDT Oxygen Saturation 100% 01/11/2024 9:04 AM CDT Inhaled Oxygen Concentration - - Weight 77.1 kg (170 lb) 01/11/2024 6:15 AM CDT Height 154.9 cm (5' 1 ) 01/11/2024 6:15 AM CDT Body Mass Index 32.12 01/11/2024 6:15 AM CDT Plan of Treatment Health Maintenance Due Date Last Done Comments Cervical Cancer Screening Pap Smear (Age 30 to 64) Every 3 Years 1991 Annual Physical 10/31/1994 Hepatitis C 10/31/2009 Hepatitis B Vaccines (1 of 3 - 19+ 3-dose series) 10/31/2010 Cervical Cancer Screening Pap with HPV Testing (Age 30 to 64) Every 5 Years 10/31/2021 Cervical Cancer Screening with HPV 10/31/2021 COVID-19 Vaccine ( season) 2024 Influenza Adult (#1) 2024 DTaP, Tdap and Td Vaccines (7 - Td or Tdap) 01/10/2034 01/11/2024, 04/01/1998, 04/16/1994, Additional history exists HPV Vaccines Completed 10/28/2007, 06/09, 04/28/2007 Meningococcal Vaccine Aged Out No latoya brennan eligible based on patient's age to complete this topic Pneumococcal Vaccine: Pediatrics (0 to 5 Years) and At-Risk Patients (6 to 64 Years) Aged Out No longer eligible based on patient's age to complete this topic RSV Immunizations Under 20 Months Aged Out No longer eligible based on patient's age to complete this topic Insurance MEDICAID Care Teams Auto Parker Relationship Specialty Start Date End Date Kristopher Askew MD [address] [place] [address] PCP - General FAMILY PRACTICE 01/11/24
--- OUTSIDE RECORDS SUMMARY | 2024-06-05 20:31 | XMS_ITS | Encounter Summary ---
Author Organization [facility] Address [address] [place] [address]. [place], [place] [id number] [place] [address] Care Team Providers Care Office Services Manager Name Role Phone Magy Medina CRAWLER CRANE OPERATOR Primary Care Provider [phone] Encounter Details Date Type Department Care Team (Late st Contact Info) Description 02/11/2017 Abstract [facility] [place], [place] [id number] Tori Vidal MD [address] [facility] [address] [place], [place] [id number] Social History Tobacco Use Types Packs/Day Years Used Date Smoking Tobacco: Never Assessed Comments Unknown Sex and Gender Information Value Date Recorded Sex Assigned at Not on file Legal Sex Female 7:19 PM CDT Gender Identity Not on file Sexual Orientation Not on file documented as of this encounter Plan of Treatment Not on file documented as of this encounter Visit Diagnoses Diagnosis Scoliosis Scoliosis (and kyphoscoliosis), idiopathic documented in this encounter Care Teams Office Services Manager Relationship Specialty Start Date End Date Magy Medina NP 3 [facility] [address] [place], [place] [id number] PCP - General 12/23/16 01/10/24 documented as of this encounter
--- OUTSIDE RECORDS SUMMARY | 2024-06-05 20:31 | XMS_ITS | Encounter Summary ---
Author Organization [facility] Address [address] [place] [address]. [place], [place] [id number] [place] [id number] Care Team Providers Care Dialysis Biomed Technician Name Role Phone Magy Medina NP Primary Care Provider [phone] Reason for Referral * Imaging (Emergency) - New Request Specialty Diagnoses / Procedures Referred By Contac t Referred To Contact RADIOLOGY Procedures CT THOR SPINE WO CON Quang Hernandez PA-C [address] [place] [id number] Phone: tel: fax: Referral ID Status Reason Start Date Expiration Date V isits Requested Visits Authorized [id number] New Request 07/08/2023 07/08/2024 1 1 CUTTER * Imaging (Emergency) - New Request Specialty Diagnoses / Procedures Referred By Contac t Referred To Contact RADIOLOGY Procedures CT CERV SPINE WO CON Quang Hernandez PA-C [address] [address] Phone: tel: fax: Referral ID Status Reason Start Date Expiration Date V isits Requested Visits Authorized [id number] New Request 07/08/2023 07/08/2024 1 1 CUTTER Reason for Visit * Reason Comments Back Pain Neck Pain Encounter Details Date Type Department Care Team (Late st Contact Info) Description 07/08/2023 2:59 PM CUBE CUTTER - 07/08/2023 4:32 PM CUBE CUTTER Emergency [facility] [place] [address] Quang Hernandez PA-C [address] [address] Back Pain; Neck Pain Discharge Disposition: Home or Self Care (Routine Discharge) Social History Tobacco Use Types Packs/Day Years [...] Sign Reading Time Taken Comments Blood Pressure 140/93 07/08/2023 2:48 PM CUBE CUTTER Pulse 94 07/08/2023 2:48 PM CUBE CUTTER Temperature 36.7 ??C (98 ??F) 07/08/2023 2:48 PM CUBE CUTTER Respiratory Rate 18 07/08/2023 2:48 PM CUBE CUTTER Oxygen Saturation 98% 07/08/2023 2:48 PM CUBE CUTTER Inhaled Oxygen Concentration - - Weight 81.6 kg (180 lb) 07/08/2023 2:48 PM CUBE CUTTER Height 167.6 cm (5' 6 ) 07/08/2023 2:48 PM CUBE CUTTER Body Mass Index 29.05 07/08/2023 2:48 PM CUBE CUTTER documented in this encounter Discharge Instructions * Discharge Instructions* Quang Hernandez PA-C - 07/08/2023 4:04 PM CUBE CUTTER Rest the neck and back. Alternate heat and ice. Take medications as prescribed for pain, inflammation, stiffness. Follow-up with your doctor and specialist. CUTTER * Attachments The following attachments cannot be sent through Care Everywhere. * Muscle and Bone Pain Discharge Instructions ([place]) documented in this encounter Medications at Time of Discharge albuterol sulfate HFA 108 (90 BASE) MCG/ACT inhaler Inhale 2 puffs into the lungs every 6 (six) hours as needed for Wheezing. cyclobenzaprine (FLEXERIL) 10 MG tablet Take 1 tablet (10 mg total) by mouth 3 (three) times daily as needed for Muscle Spasms. 16 tablet 07/08/2023 diclofenac EC (VOLTAREN) 50 MG tablet Take 1 tablet (50 mg total) by mouth 2 (two) times daily. 60 tablet 07/08/2023 hydroCHLOROthiazi de (HYDRODIURIL) 25 MG tablet Take 1 tablet (25 mg total) by mouth every morning. 30 tablet 08/02/2022 ibuprofen 600 MG tablet Take 1 tablet (600 mg total) by mouth every 8 (eight) hours as needed for Pain. 30 tablet 12/17/2017 meloxicam (MOBIC) 15 MG tablet Take 1 tablet (15 mg total) by mouth daily. 20 tablet 05/22/2023 documented as of this encounter ED Notes * Cheryl Mendez RN - 07/08/2023 4:31 PM CST Provider discussed today's findings with the patient/family. The patient has been given informationregarding their treatment, follow up and concerning symptoms for which they should seek urgent or emergent attention. I have expressed the the importance of seeking attention should there be any new,or worsening symptoms or persistence of their condition. Patient verbalized understanding of the discharge instructions. CUTTER * Quang Hernandez PA-C - 07/08/2023 2:50 PM CSTSummary: neck pain [facility] ED NOTE Jenny Bowling 1990 Chief Complaint Chief Complaint Patient presents with Back Pain Neck Pain History of Present Illness Patient with history of scoliosis presents ambulatory to the emergency room through triage after driving self here with complaints of bilateral and mid back and upper back pain after bending over. States that she felt a pop in the area. Reports feeling warm and tingly sensation in the area. Denies extremity numbness or weakness, fever, chills, sweats, stiffness, IV drug use, low back pain, urine/bowel incontinence/retention, saddle anesthesia, foot drop. Longstanding history of scoliosis and chronic neck/back pain. PCP is following this for 20 years and she gets yearly C-spine x-rays and physical therapy. She takes no chronic medications for this. No pain medication prior to arrival. As a child she did see [facility] regulatory law specialist for scoliosis. No history of surgery to the neck or back. Medical History ALLERGIES: Review of patient's allergies indicates: Allergen Reactions Latex Rash MEDICATIONS: Prior to Admission medications Medication Sig Start Date End Date Taking? Authorizing Provider cyclobenzaprine (FLEXERIL) 10 MG tablet Take 1 tablet (10 mg total) by mouth 3 (three) times daily as needed for Muscle Spasms. 07/08/23 Yes Quang Hernandez PA-C diclofenac EC (VOLTAREN) 50 MG tablet Take 1 tablet (50 mg total) by mouth 2 (two) times daily. 07/08/23 Yes Quang Hernandez PA-C albuterol sulfate HFA 108 (90 BASE) MCG/ACT inhaler Inhale 2 puffs into the lungs every 6 (six) hours as needed for Wheezing. Doc [facility] hydroCHLOROthiazide (HYDRODIURIL) 25 MG tablet Take 1 tablet (25 mg total) by mouth every morning. 08/02/22 Federica Faith NP ibuprofen 600 MG tablet Take 1 tablet (600 mg total) by mouth every 8 (eight) hours as needed for Pain. 12/17/17 Federica Faith NP meloxicam (MOBIC) 15 MG tablet Take 1 tablet (15 mg total) by mouth daily. 05/22/23 KYREE Zamudio PAST MEDICAL HISTORY: Past Medical History: Diagnosis Date Asthma COVID-19 Scoliosis PAST SURGICAL HISTORY: Past Surgical History: Procedure Laterality Date DELIVERY ONLY FAMILY HISTORY: Family History Problem Relation Name Age of Onset Diabetes Mother Hypertension Mother Stroke Mother Asthma Mother SOCIAL HISTORY: Social History Tobacco Use Smoking status: Never Smokeless tobacco: Never Substance Use Topics Alcohol use: No Drug use: No Review of Systems Review of Systems Constitutional: Negative for activity change, appetite change, fever and unexpected weight change. HENT: Negative for ear pain, sore throat and trouble swallowing. Eyes: Negative. Respiratory: Negative for cough, chest tightness and shortness of breath. Cardiovascular: Negative for chest pain, palpitations and leg swelling. Gastrointestinal: Negative for abdominal distention, abdominal pain, constipation, diarrhea, nauseaand vomiting. Genitourinary: Negative for dysuria, flank pain and hematuria. Musculoskeletal: Positive for back pain and neck pain. Negative for arthralgias and myalgias. Skin: Negative for color change, rash and wound. Allergic/Immunologic: Negative for immunocompromised state. Neurological: Negative for dizziness, speech difficulty, weakness, light- headedness, numbness and headaches. Hematological: Negative for adenopathy. Psychiatric/Behavioral: Negative. Physical Exam Filed Vitals: 07/08/23 1448 BP: (!) 140/93 Pulse: 94 Resp: 18 Temp: 98 ??F (36.7 ??C) TempSrc: Tympanic SpO2: 98% Weight: 81.6 kg (180 lb) Height: 1.676 m (5' 6 ) Physical Exam Vitals and nursing note reviewed. Exam conducted with a coordinator mining products present. Constitutional: General: She is not in acute distress. Appearance: Normal appearance. She is well-developed and normal weight. She is not ill-appearing, toxic-appearing or diaphoretic. HENT: Head: Normocephalic and atraumatic. Right Ear: External ear normal. Left Ear: External ear normal. Nose: Nose normal. Mouth/Throat: Mouth: Mucous membranes are moist. Pharynx: Oropharynx is clear. Eyes: Extraocular Movements: Extraocular movements intact. Conjunctiva/sclera: Conjunctivae normal. Pupils: Pupils are equal, round, and reactive to light. Neck: Thyroid: No thyromegaly. Trachea: No tracheal deviation. Cardiovascular: Rate and Rhythm: Normal rate and regular rhythm. Pulses: Normal pulses. Heart sounds: Normal heart sounds. Pulmonary: Effort: Pulmonary effort is normal. No respiratory distress. Breath sounds: Normal breath sounds. Abdominal: General: Abdomen is flat. Bowel sounds are normal. There is no distension. Palpations: Abdomen is soft. There is no mass. Tenderness: There is no abdominal tenderness. There is no guarding or rebound. Hernia: No hernia is present. Musculoskeletal: General: No swelling, tenderness, deformity or signs of injury. Normal range of motion. Cervical back: Normal range of motion and neck supple. No rigidity or tenderness. Lymphadenopathy: Cervical: No cervical adenopathy. Skin: General: Skin is warm and dry. Capillary Refill: Capillary refill takes less than 2 seconds. Findings: No rash. Neurological: General: No focal deficit present. Mental Status: She is alert and oriented to person, place, and time. Cranial Nerves: No cranial nerve deficit. Sensory: No sensory deficit. Motor: No weakness. Coordination: Coordination normal. Gait: Gait normal. Deep Tendon Reflexes: Reflexes normal. Psychiatric: Mood and Affect: Mood normal. Behavior: Behavior normal. Thought Content: Thought content normal. Judgment: Judgment normal. Diagnostic Studies / Procedures ELECTROCARDIOGRAMS: No results found for this visit on 07/08/23. LABORATORY STUDIES: No results found for this visit on 07/08/23. IMAGING STUDIES CT CERV SPINE WO CON Final Result by User, [id number] (07/08 116) DATE: 07/08/2023 3:35 PM EXAMINATION: CT cervical and thoracic spine without contrast CLINICAL HISTORY: Neck and back injury. Trauma. Scoliosis. COMPARISON: Thoracic MRI 12/13/2016 TECHNIQUE: CT exams of the cervical and thoracic spine were performed without contrast. Axial and multiplanar reformatted images were obtained. A dose lowering technique was used for this procedure, which may include, but is not limited to, dose reduction technique, automated exposure control, the use of iterative reconstruction, and ALARA (As Low As Reasonably Achievable) / Image Gently techniques. FINDINGS: CERVICAL SPINE: Straightening of the cervical lordosis. Slight rightward rotation of C1 relative to C2. Otherwise the cervical vertebral alignment, vertebral body heights, and facet alignment are maintained. C1-C2 lateral mass and atlantooccipital articulations are otherwise preserved. Odontoid process intact. No definite acute fractures identified in the cervical spine. Mild degenerative changes are evident in the cervical spine with mild disc degeneration, tiny endplate/uncovertebral osteophytes, and minimal facet hypertrophy noted. THORACIC SPINE: Pronounced extra scoliosis of the lower thoracic spine. Otherwise the thoracic vertebral alignment, vertebral body heights, and facet alignment are maintained. Prevertebral soft tissues are unremarkable. No definite acute fractures identified in the thoracic spine. Degenerative changes are evident in the thoracic spine with disc degeneration and facet hypertrophy noted. SOFT TISSUES: No definite acute findings. IMPRESSION: 1. No definite acute fractures identified in the cervical or thoracic spine. 2. Mild degenerative changes. 3. Pronounced lower thoracic dextroscoliosis. Ordered By: QUANG HERNANDEZ Interpreted By: Rey Snowden MD, 07/08/2023 3:[address] THOR SPINE WO CON Final Result by User, [id number] 07/08 4126) DATE: 07/08/2023 3:35 PM EXAMINATION: CT cervical and thoracic spine without contrast CLINICAL HISTORY: Neck and back injury. Trauma. Scoliosis. COMPARISON: Thoracic MRI 12/13/2016 TECHNIQUE: CT exams of the cervical and thoracic spine were performed without contrast. Axial and multiplanar reformatted images were obtained. A dose lowering technique was used for this procedure, which may include, but is not limited to, dose reduction technique, automated exposure control, the use of iterative reconstruction, and ALARA (As Low As Reasonably Achievable) / Image Gently techniques. FINDINGS: CERVICAL SPINE: Straightening of the cervical lordosis. Slight rightward rotation of C1 relative to C2. Otherwise the cervical vertebral alignment, vertebral body heights, and facet alignment are maintained. C1-C2 lateral mass and atlantooccipital articulations are otherwise preserved. Odontoid process intact. No definite acute fractures identified in the cervical spine. Mild degenerative changes are evident in the cervical spine with mild disc degeneration, tiny endplate/uncovertebral osteophytes, and minimal facet hypertrophy noted. THORACIC SPINE: Pronounced extra scoliosis of the lower thoracic spine. Otherwise the thoracic vertebral alignment, vertebral body heights, and facet alignment are maintained. Prevertebral soft tissues are unremarkable. No definite acute fractures identified in the thoracic spine. Degenerative changes are evident in the thoracic spine with disc degeneration and facet hypertrophy noted. SOFT TISSUES: No definite acute findings. IMPRESSION: 1. No definite acute fractures identified in the cervical or thoracic spine. 2. Mild degenerative changes. 3. Pronounced lower thoracic dextroscoliosis. Ordered By: QUANG HERNANDEZ Interpreted By: Rey Snowden MD, 07/08/2023 3:52 PM ED Course / Medical Decision Making Medical Decision Making Patient stable. Nontoxic appearance. No concerning vital signs. No pertinent orthopedic or neurologic findings. Neurovascular status intact. No meningismus. Acute on chronic pain. CT cervical spine and thoracic spine unremarkable for acute concern or fracture per radiology read. Scoliosis noted perradiology read. Patient given Toradol with relief. Will discharge home with NSAIDs, muscle laxer, PCP follow-up. Problems Addressed: Acute bilateral thoracic back pain: acute illness or injury Neck pain: acute illness or injury Scoliosis, unspecified scoliosis type, unspecified spinal region: chronic illness or injury Amount and/or Complexity of Data Reviewed Radiology: ordered. Decision-making details documented in ED Course. Risk OTC drugs. Prescription drug management. Medications ketorolac (TORADOL) injection 30 mg (30 mg Intramuscular Given 07/08/23 1505) Clinical Impression Neck pain (Primary) Acute bilateral thoracic back pain Scoliosis, unspecified scoliosis type, unspecified spinal region Current Discharge Medication List START taking these medications Details cyclobenzaprine (FLEXERIL) 10 MG tablet Take 1 tablet (10 mg total) by mouth 3 (three) times daily as needed for Muscle Spasms. Qty: 16 tablet, Refills: 0 Class: Eprescribe Pharmacy: [id number] [place] [address] [address] AT [facility] (Ph #: [phone]) diclofenac EC (VOLTAREN) 50 MG tablet Take 1 tablet (50 mg total) by mouth 2 (two) times daily. Qty: 60 tablet, Refills: 0 Class: Eprescribe Pharmacy: [facility] [address] [place] [address] [facility] (Ph #: [phone]) Disposition: Discharge Follow-Up: Magy Medina NP [address] [facility] [phone] Call in 2 days QUANG HERNANDEZ PA-C 07/08/2023 Quang Hernandez PA-C 07/08/23 [id number] Cosigned by Stanislaw Durbin MD at 07/08/2023 8:47 PM CUBE CUTTER CUTTER CUTTER * Zoey Ya RN - 07/08/2023 2:48 PM CST Pt arrives with c/o neck and back pain that started when she was bent over at work. Per pt, she wasbent over to pick something up and heard a pop in her mid- upper back. Burning pains, muscle spasms,and pinching pains that have been causing headaches. Hx scoliosis and gets xrays every other month. Want her to see neuro surgery for spinal fusion but has been putting it off. CUTTER documented in this encounter Plan of Treatment Not on file documented as of this encounter Procedures Procedure Name Priority Date/Time Associated Diagnosis Comments CT THOR SPINE WO CON STAT 07/08/2023 3:[address] CERV SPINE WO CON STAT 07/08/2023 3:40 PM CUBE CUTTER documented in this encounter Results * CT THOR SPINE WO CON (07/08/2023 3:40 PM CUBE CUTTER) Anatomical Region Laterality Modality Spine Computed Tomogra phy 07/08/2023 3:52 PM CUBE CUTTER Impressions 07/08/2023 3:58 PM CUBE CUTTER IMPRESSION: 1. No definite acute fractures identified in the cervical or thoracic spine. 2. Mild degenerative changes. 3. Pronounced lower thoracic dextroscoliosis. Ordered By: QUANG HERNANDEZ Interpreted By: Rey Snowden MD, 07/08/2023 3:52 PM Narrative 07/08/2023 3:58 PM CUBE CUTTER DATE: 07/08/2023 3:35 PM EXAMINATION: CT cervical and thoracic spine without contrast CLINICAL HISTORY: Neck and back injury. Trauma. Scoliosis. COMPARISON: Thoracic MRI 12/13/2016 TECHNIQUE: CT exams of the cervical and thoracic spine were performed without contrast. ??Axial and multiplanar reformatted images were obtained. A dose lowering technique was used for this procedure, which may include, but is not limited to, dose reduction technique, automated exposure control, the use of iterative reconstruction, and ALARA (As Low As Reasonably Achievable) / Image Gently techniques. FINDINGS: CERVICAL SPINE: Straightening of the cervical lordosis. Slight rightward rotation of C1 relative to C2. Otherwise the cervical vertebral alignment, vertebral body heights, and facet alignment are maintained. C1-C2 lateral mass and atlantooccipital articulations are otherwise preserved. Odontoid process intact. No definite acute fractures identified in the cervical spine. Mild degenerative changes are evident in the cervical spine with mild disc degeneration, tiny endplate/uncovertebral osteophytes, and minimal facet hypertrophy noted. THORACIC SPINE: Pronounced extra scoliosis of the lower thoracic spine. Otherwise the thoracic vertebral alignment, vertebral body heights, and facet alignment are maintained. Prevertebral soft tissues are unremarkable. No definite acute fractures identified in the thoracic spine. Degenerative changes are evident in the thoracic spine with disc degeneration and facet hypertrophy noted. SOFT TISSUES: No definite acute findings. Procedure Note Rey Snowden MD - 07/08/2023 DATE: 07/08/2023 3:35 PM EXAMINATION: CT cervical and thoracic spine without contrast CLINICAL HISTORY: Neck and back injury. Trauma. Scoliosis. COMPARISON: Thoracic MRI 12/13/2016 TECHNIQUE: CT exams of the cervical and thoracic spine were performedwithout contrast. Axial and multiplanar reformatted images wereobtained. A dose lowering technique was used for this procedure, which may include,but is not limited to, dose reduction technique, automated exposurecontrol, the use of iterative reconstruction, and ALARA (As Low AsReasonably Achievable) / Image Gently techniques. FINDINGS: CERVICAL SPINE: Straightening of the cervical lordosis. Slight rightward rotation of [id number] to C2. Otherwise the cervical vertebral alignment, vertebral bodyheights, and facet alignment are maintained. C1-C2 lateral mass andatlantooccipital articulations are otherwise preserved. Odontoid processintact. No definite acute fractures identified in the cervical spine. Milddegenerative changes are evident in the cervical spine with mild discdegeneration, tiny endplate/uncovertebral osteophytes, and minimal facethypertrophy noted. THORACIC SPINE: Pronounced extra scoliosis of the lower thoracic spine. Otherwise thethoracic vertebral alignment, vertebral body heights, and facet alignmentare maintained. Prevertebral soft tissues are unremarkable. No definiteacute fractures identified in the thoracic spine. Degenerative changes areevident in the thoracic spine with disc degeneration and facet hypertrophynoted. SOFT TISSUES: No definite acute findings. IMPRESSION: 1. No definite acute fractures identified in the cervical or thoracicspine. 2. Mild degenerative changes. 3. Pronounced lower thoracic dextroscoliosis. Ordered By: QUANG HERNANDEZ Interpreted By: Rey Snowden MD, 07/08/2023 3:52 PM us Quang Hernandez PA-C CT Final Resul t * CT CERV SPINE WO CON (07/08/2023 3:40 PM CUBE CUTTER) Anatomical Region Laterality Modality Spine Computed Tomogra phy 07/08/2023 3:52 PM CUBE CUTTER Impressions 07/08/2023 3:58 PM CUBE CUTTER IMPRESSION: 1. No definite acute fractures identified in the cervical or thoracic spine. 2. Mild degenerative changes. 3. Pronounced lower thoracic dextroscoliosis. Ordered By: QUANG HERNANDEZ Interpreted By: Rey Snowden MD, 07/08/2023 3:52 PM Narrative 07/08/2023 3:58 PM CUBE CUTTER DATE: 07/08/2023 3:35 PM EXAMINATION: CT cervical and thoracic spine without contrast CLINICAL HISTORY: Neck and back injury. Trauma. Scoliosis. COMPARISON: Thoracic MRI 12/13/2016 TECHNIQUE: CT exams of the cervical and thoracic spine were performed without contrast. ??Axial and multiplanar reformatted images were obtained. A dose lowering technique was used for this procedure, which may include, but is not limited to, dose reduction technique, automated exposure control, the use of iterative reconstruction, and ALARA (As Low As Reasonably Achievable) / Image Gently techniques. FINDINGS: CERVICAL SPINE: Straightening of the cervical lordosis. Slight rightward rotation of C1 relative to C2. Otherwise the cervical vertebral alignment, vertebral body heights, and facet alignment are maintained. C1-C2 lateral mass and atlantooccipital articulations are otherwise preserved. Odontoid process intact. No definite acute fractures identified in the cervical spine. Mild degenerative changes are evident in the cervical spine with mild disc degeneration, tiny endplate/uncovertebral osteophytes, and minimal facet hypertrophy noted. THORACIC SPINE: Pronounced extra scoliosis of the lower thoracic spine. Otherwise the thoracic vertebral alignment, vertebral body heights, and facet alignment are maintained. Prevertebral soft tissues are unremarkable. No definite acute fractures identified in the thoracic spine. Degenerative changes are evident in the thoracic spine with disc degeneration and facet hypertrophy noted. SOFT TISSUES: No definite acute findings. Procedure Note Rey Snowden MD - 07/08/2023 DATE: 07/08/2023 3:35 PM EXAMINATION: CT cervical and thoracic spine without contrast CLINICAL HISTORY: Neck and back injury. Trauma. Scoliosis. COMPARISON: Thoracic MRI 12/13/2016 TECHNIQUE: CT exams of the cervical and thoracic spine were performedwithout contrast. Axial and multiplanar reformatted images wereobtained. A dose lowering technique was used for this procedure, which may include,but is not limited to, dose reduction technique, automated exposurecontrol, the use of iterative reconstruction, and ALARA (As Low AsReasonably Achievable) / Image Gently techniques. FINDINGS: CERVICAL SPINE: Straightening of the cervical lordosis. Slight rightward rotation of [id number] to C2. Otherwise the cervical vertebral alignment, vertebral bodyheights, and facet alignment are maintained. C1-C2 lateral mass andatlantooccipital articulations are otherwise preserved. Odontoid processintact. No definite acute fractures identified in the cervical spine. Milddegenerative changes are evident in the cervical spine with mild discdegeneration, tiny endplate/uncovertebral osteophytes, and minimal facethypertrophy noted. THORACIC SPINE: Pronounced extra scoliosis of the lower thoracic spine. Otherwise thethoracic vertebral alignment, vertebral body heights, and facet alignmentare maintained. Prevertebral soft tissues are unremarkable. No definiteacute fractures identified in the thoracic spine. Degenerative changes areevident in the thoracic spine with disc degeneration and facet hypertrophynoted. SOFT TISSUES: No definite acute findings. IMPRESSION: 1. No definite acute fractures identified in the cervical or thoracicspine. 2. Mild degenerative changes. 3. Pronounced lower thoracic dextroscoliosis. Ordered By: QUANG HERNANDEZ Interpreted By: Rey Snowden MD, 07/08/2023 3:52 PM us Quang Hernandez PA-C CT Final Resul t documented in this encounter Visit Diagnoses Diagnosis Neck pain- Primary Cervicalgia Acute bilateral thoracic back pain Scoliosis, unspecified scoliosis type, unspecified spinal region documented in this encounter Administered Medications Inactive Administered Medications - up to 3 most recent administrations Medication Order MAR Action Action Date Dose Rate Site ketorolac (TORADOL) injection 30 mg 30 mg, Intramuscular, Once, 1 dose, On Fri07/08/23 at 1500, For IV administration, give over 15 seconds. Given 07/08/2023 3:05 PM CUBE CUTTER 30 mg Right Ventrogluteal documented in this encounter Active and Recently Administered Medications Times are shown in CUBE CUTTER. Scheduled Medication Order 07/06/2023 07/07/2023 07/08/2023 ketorolac (TORADOL) injection 30 mg (COMPLETED) 30 mg, Intramuscular, Once, 1 dose, On Fri07/08/23 at 1500, For IV administration, give over 15 seconds. 1505 (Given - Provid er: Rosie Payne RN) documented in this encounter Care Teams Dialysis Biomed Technician Relationship Specialty Start Date End Date Magy Medina NP [address] [facility] [address] [place] [address] PCP - General 12/23/16 01/10/24 documented as of this encounter
--- OUTSIDE RECORDS SUMMARY | 2024-06-05 20:31 | XMS_ITS | Encounter Summary ---
Author Organization [facility] Address [address] [place] [address]. [place], [place] [id number] [place] [address] Care Team Providers Care Practical Nursing Teacher Name Role Phone Magy Medina EMPLOYEE DEVELOPMENT SPECIALIST Primary Care Provider [phone] Encounter Details Date Type Department Care Team (Late st Contact Info) Description 12/23/[address] [place] [address] Magy Medina NP [address] [facility] [address] [place] [address] Social History Tobacco Use Types Packs/Day Years Used Date Smoking Tobacco: Never Assessed Comments Unknown Sex and Gender Information Value Date Recorded Sex Assigned at Not on file Legal Sex Female 7:19 PM CDT Gender Identity Not on file Sexual Orientation Not on file documented as of this encounter Plan of Treatment Not on file documented as of this encounter Visit Diagnoses Diagnosis Dorsalgia Pain in thoracic spine documented in this encounter Care Teams Practical Nursing Teacher Relationship Specialty Start Date End Date Magy Medina NP [address] [facility] [address] [place] [address] PCP - General 12/23/16 01/10/24 documented as of this encounter
--- OUTSIDE RECORDS SUMMARY | 2024-06-05 20:31 | XMS_ITS | Encounter Summary ---
Author Organization [facility] Address [address] [place] [address]. [place], [place] [address] [place] [address] Care Team Providers Care Shake Sawyer Name Role Phone Magy Medina NP Primary Care Provider [phone] Encounter Details Date Type Department Care Team (Latest Contact Info) Description 12/29/2020 Travel Social History Tobacco Use Types Packs/Day Years Used Date Smoking Tobacco: Never Smokeless Tobacco: Never Alcohol Use Standard Drinks/Week Comments No 0 (1 standard drink = 0.6 oz pur e alcohol) Comments No Sex and Gender Information Value Date Recorded Sex Assigned at Not on file Legal Sex Female 7:19 PM CDT Gender Identity Not on file Sexual Orientation Not on file COVID-19 Exposure Response Date Recorded In the last month, have you been in contact with someone who was confirmed or suspected to have Coronavirus / COVID-19? No / Unsure 12/29/2020 6:17 AM CDT documented as of this encounter Plan of Treatment Not on file documented as of this encounter Visit Diagnoses Not on filedocumented in this encounter Additional Health Concerns Infection Onset Date Last Indicated Resolved Time COVID-19 Rule Out 12/29/2020 12/29/2020 01/05/2021 12:35 AM CDT documented as of this encounter Care Teams Shake Sawyer Relationship Specialty Start Date End Date Magy Medina NP 3 [facility] [address] [place] [address] PCP - General 12/23/16 01/10/24 documented as of this encounter
--- OUTSIDE RECORDS SUMMARY | 2024-06-05 20:31 | XMS_ITS | Encounter Summary ---
Author Organization [facility] Address [address] [place] [address]. [place] [address] [place] [address] Care Team Providers Care Director Of Placement Name Role Phone Adam Magy BILL CLERK Primary Care Provider [phone] Magy Medina BILL CLERK Primary Care Provider Encounter Details Date Type Department Care Team (Late st Contact Info) Description 12/05/2016 Emergency [facility] [place] [address] Ted Jones MD [facility], Susanna Blas MD [address] [place] [address] Social History Tobacco Use Types Packs/Day Years [...] Procedure Name Priority Date/Time Associated Diagnosis Comments BASIC METABOLIC PANEL Routine 12/06/2016 5:41 AM CDT CBC W/DIFF AUTOMATED Routine 12/06/2016 5:41 AM CDT URINE BACTERIA CULTURE Routine 7 10:04 AM CDT URINALYSIS STAT 12/05/2016 9:38 AM CDT COMPREHENSIVE METABOLIC PANEL STAT 12/05/2016 9:38 AM CDT HCG QUANT (SERUM)-CHORIONIC GONADOTROPIN STAT 12/05/2016 9:38 AM CDT CBC W/DIFF AUTOMATED STAT 12/05/2016 9:38 AM CDT documented in this encounter Results * (ABNORMAL) CBC W/DIFF AUTOMATED (12/06/2016 5:41 AM CDT) WBC 14.2(H) 4.8 - 10.8 x10'3/uL 12/06/2016 5:58 AM CDT [facility] RBC 4.69 4.20 - 5.40 x10'6/uL 12/06/2016 5:58 AM CDT [facility] HGB 13.1 12.0 - 16.0 G/DL 12/06/2016 5:58 AM CDT [facility] HCT 40.1 38.0 - 48.0 % 12/06/2016 5:58 AM CDT [facility] MCV 85.5 81.0 - 99.0 FL 12/06/2016 5:58 AM CDT [facility] MCH 27.9 27.0 - 31.0 PG 12/06/2016 5:58 AM CDT [facility] MCHC 32.7 32.0 - 36.0 G/DL 12/06/2016 5:58 AM CDT [facility] RDW 12.6 11.5 - 14.5 % 12/06/2016 5:58 AM CDT [facility] PLT 347 130 - 400 x10'3/uL 12/06/2016 5:58 AM CDT [facility] MPV 9.8 9.3 - 12.2 FL 12/06/2016 5:58 AM CDT [facility] IMMATURE GRANS % 0.5 0.0 - 1.0 % 12/06/2016 5:58 AM CDT [facility] NEUTROPHILS % 89.7(H) 43.0 - 65.0 % 12/06/2016 5:58 AM CDT [facility] LYMPHOCYTES % 7.7(L) 20.0 - 46.0 % 12/06/2016 5:58 AM CDT [facility] MONOCYTES % 2.0(L) 5.0 - 12.0 % 12/06/2016 5:58 AM CDT [facility] EOSINOPHILS 0.0(L) 1.0 - 3.0 % 12/06/2016 5:58 AM CDT [facility] BASOPHILS 0.1 0.0 - 1.0 % 12/06/2016 5:58 AM CDT [facility] WHOLE BLOOD SPECIMEN / Unknown 12/06/2016 5:41 AM CDT 12/06/2016 5:44 AM CDT us Generic Conversion Md [facility] Final R esult [facility] [address] [place] [address], [place] [phone] * (ABNORMAL) BASIC METABOLIC PANEL (12/06/2016 5:41 AM CDT) GLUCOSE 137(H) 70 - 99 mg/dL 12/06/2016 6:21 AM CDT [facility] BUN 11 8 - 23 mg/dL 12/06/2016 6:21 AM CDT [facility] CREATININE S/P/B 0.58(L) 0.60 - 1.10 mg/dL 12/06/2016 6:21 AM CDT [facility] SODIUM S/P/B 140 136 - 145 mmol/L 12/06/2016 6:21 AM CDT [facility] POTASSIUM S/P/B 4.0 3.5 - 5.1 mmol/L 12/06/2016 6:21 AM CDT [facility] CHLORIDE S/P/B 106 98 - 107 mmol/L 12/06/2016 6:21 AM CDT [facility] CO2 21(L) 22 - 29 mmol/L 12/06/2016 6:21 AM CDT [facility] CALCIUM S/P/B 9.4 8.6 - 10.2 mg/dL 12/06/2016 6:21 AM CDT [facility] ANION GAP 17 8 - 20 12/06/2016 6:21 AM CDT [facility] EGFR NON-AFR. AMER. >60 >60 mL/min/1.7 3m'2 12/06/2016 6:21 AM CDT [facility] EGFR AFR. AMER. >60 >60 mL/min/1.7 '2 12/06/2016 6:21 AM T [facility] Comment: NOTE: eGFR is not calculated for patients <18 years of age. This is an estimated GFR (CKD EPI) and should not be used for calculating drug doses. 12/06/2016 5:41 AM CDT 12/06/2016 5:44 AM CDT us Generic Conversion Md [facility] Final R esult [facility] [address] [address], * CULTURE URINE (12/05/2016 10:04 AM CDT) SPEC DESCRIPTION URINE CLEAN CATCH 12/05/2016 10:45 AM CDT [facility] SPECIAL REQUESTS NO SPECIAL REQUEST 12/05/2016 10:45 AM CDT [facility] CULTURE RESULT MULTIPLE ORGANISMS PRESENT, PROBABLE CONTAMINATION . SUGGEST REPEAT CULTURE. 12/06/2016 10:22 AM CDT [facility] URINE SPECIMEN OBTAINED BY CLEAN CATCH PROCEDURE / Unknown 12/05/2016 10:04 AM CDT 12/05/2016 10:45 AM CDT us Generic Conversion Md [facility] MICROBIOLOGY - GENERAL ORDERABLES Final Result [facility] [address] [place] [address], [place] [phone] * (ABNORMAL) URINALYSIS (12/05/2016 9:38 AM CDT) SOURCE (FLUID) URINE CLEAN CATCH 12/05/2016 9:31 AM CDT [facility] COLOR (U) YELLOW 12/05/2016 10:44 AM T [facility] TRANSPARENCY CLOUDY 12/05/2016 10:44 AM CDT [facility] SPECIFIC GRAVITY (U) 1.018 1.001 - 1.030 12/05/2016 10:44 AM T [facility] U PH 7.0 5.0 - 9.0 12/05/2016 10:44 AM T [facility] LEUKOCYTES (U) TRACE(A) NEGATIVE 12/05/2016 10:44 AM CDT [facility] NITRITES NEGATIVE NEGATIVE 12/05/2016 10:44 AM CDT [facility] PROTEIN (U) NEGATIVE <30 MG/DL 12/05/2016 10:44 AM CDT [facility] URINE GLUCOSE NEGATIVE NEGATIVE MG/DL 12/05/2016 10:44 AM T [facility] KETONES MG/DL (U) NEGATIVE NEGATIVE MG/DL 12/05/2016 10:44 AM T [facility] UROBILINOGEN NEGATIVE NEGATIVE MG/DL 12/05/2016 10:44 AM CDT [facility] BILIRUBIN (U) NEGATIVE NEGATIVE MG/DL 12/05/2016 10:44 AM CDT [facility] BLOOD (U) NEGATIVE NEGATIVE 12/05/2016 10:44 AM CDT [facility] CULTURE & SENSITIVITY INDICATED? SPECIMEN SETUP FOR CULTURE 12/05/2016 10:44 AM CDT [facility] SQUAMOUS EPITHELIALS MANY /LPF 12/05/2016 10:44 AM CDT [facility] WBC/HPF 1 <6 /HPF 12/05/2016 10:44 AM CDT [facility] RBC/HPF 1 <6 /HPF 12/05/2016 10:44 AM CDT [facility] 12/05/2016 9:38 AM CDT 12/05/2016 10:30 AM CDT us Generic Conversion Md [facility] URINE ORDERABLES Final Result Performing Organization Address City/State/[facility] Co de Phone Number [facility] [address] [place] [address], * BHCG QUANT (SERUM)-CHORIONIC GONADOTROPIN (12/05/2016 9:38 AM CDT) HCG QUANTITATIVE <1 mIU/mL 12/06/19 17 10:12 AM CDT [facility] Comment: WEEKS OF ? REFERENCE RANGES non- female ?< or = 4 ? 3 ? 5 - ?72 ? 4 ?10 - ? 708 ? 5 ? 217 - ?? 8,245 ? 6 ? 152 - ??32,177 ? 7 ? 4,059 - 153,767 ? 8 ?31,366 - 149,094 ? 9 ?59,109 - 135,901 ?10 ?44,186 - 170,409 ?12 ?27,107 - 201,615 ?14 ?24,302 - ??93,646 ?15 ?12,540 - ??69,747 ?16 ? 8,904 - ??55,332 ?17 ? 8,240 - ??51,793 ?18 ? 9,769 - ??55,271 SERUM OR PLASMA SPECIMEN / Unknown 12/05/2016 9:38 AM CDT 12/05/2016 9:45 AM CDT us Generic Conversion Md [facility] Final R esult Performing Organization Address [facility]/State/[facility] Co de Phone Number [facility] [address] [place] [address], * COMPREHENSIVE METABOLIC PANEL (12/05/2016 9:38 AM CDT) [facility] GLUCOSE 86 70 - 99 mg/dL 12/05/2016 10:18 AM T [facility] BUN 9 8 - 23 mg/dL 12/05/2016 10:18 AM T [facility] CREATININE S/P/B 0.64 0.60 - 1.10 mg/dL 12/05/2016 10:18 AM T [facility] SODIUM S/P/B 141 136 - 145 mmol/L 12/05/2016 10:18 AM T [facility] POTASSIUM S/P/B 3.8 3.5 - 5.1 mmol/L 12/05/2016 10:18 AM [facility] CHLORIDE S/P/B 104 98 - 107 mmol/L 12/05/2016 10:18 AM [facility] CO2 24 22 - 29 mmol/L 12/05/2016 10:18 AM T [facility] BILIRUBIN TOTAL S/P/B 0.3 0.2 - 1.2 mg/dL 12/05/2016 10:18 AM T [facility] CALCIUM S/P/B 9.4 8.6 - 10.2 mg/dL 12/05/2016 10:18 AM T [facility] ALKALINE PHOSPHATASE S/P/B 59 35 - 104 U/L 12/05/2016 10:18 AM T [facility] AST 13 0 - 32 U/L 12/05/2016 10:18 AM T [facility] TOTAL PROTEIN S/P/B 7.4 6.4 - 8.3 g/dL 12/05/2016 10:18 AM T [facility] ALBUMIN S/P/B 4.3 3.5 - 5.2 g/dL 12/05/2016 10:18 AM T [facility] ALT 12 0 - 33 U/L 12/05/2016 10:18 AM CDT [facility] GLOBULIN 3.1 2.3 - 3.6 g/dL 12/05/2016 10:18 AM CDT [facility] A/G RATIO 1.4 1.0 - 2.0 12/05/2016 10:18 AM CDT [facility] ANION GAP 17 8 - 20 12/05/2016 10:18 AM CDT [facility] EGFR NON-AFR. AMER. >60 >60 mL/min/1.7 3m'2 12/05/2016 10:18 AM CDT [facility] EGFR AFR. AMER. >60 >60 mL/min/1.7 3m'2 12/05/2016 10:18 AM CDT [facility] Comment: NOTE: eGFR is not calculated for patients <18 years of age. This is an estimated GFR (CKD EPI) and should not be used for calculating drug doses. 12/05/2016 9:38 AM CDT 12/05/2016 9:44 AM CDT us Generic Conversion Md [facility] Final R esult [facility] [address] [place] [address], * (ABNORMAL) CBC W/DIFF AUTOMATED (12/05/2016 9:38 AM CDT) WBC 5.0 4.8 - 10.8 x10'3/uL 12/05/2016 9:50 AM CDT [facility] RBC 4.55 4.20 - 5.40 x10'6/uL 12/05/2016 9:50 AM CDT [facility] HGB 12.8 12.0 - 16.0 G/DL 12/05/2016 9:50 AM CDT [facility] HCT 38.6 38.0 - 48.0 % 12/05/2016 9:50 AM CDT [facility] MCV 84.8 81.0 - 99.0 FL 12/05/2016 9:50 AM CDT [facility] MCH 28.1 27.0 - 31.0 PG 12/05/2016 9:50 AM CDT [facility] MCHC 33.2 32.0 - 36.0 G/DL 12/05/2016 9:50 AM CDT [facility] RDW 12.5 11.5 - 14.5 % 12/05/2016 9:50 AM CDT [facility] PLT 314 130 - 400 x10'3/uL 12/05/2016 9:50 AM CDT [facility] MPV 10.0 9.3 - 12.2 FL 12/05/2016 9:50 AM CDT [facility] IMMATURE GRANS % 0.2 0.0 - 1.0 % 12/05/2016 9:50 AM CDT [facility] NEUTROPHILS % 41.0(L) 43.0 - 65.0 % 12/05/2016 9:50 AM T [facility] LYMPHOCYTES % 43.8 20.0 - 46.0 % 12/05/2016 9:50 AM T [facility] MONOCYTES % 8.2 5.0 - 12.0 % 12/05/2016 9:50 AM T [facility] EOSINOPHILS 5.8(H) 1.0 - 3.0 % 12/05/2016 9:50 AM T [facility] BASOPHILS 1.0 0.0 - 1.0 % 12/05/2016 9:50 AM T [facility] WHOLE BLOOD SPECIMEN / Unknown 12/05/2016 9:38 AM CDT 12/05/2016 9:44 AM CDT us Generic Conversion Md [facility] Final R esult [facility] [address] [place] [address], [place] [phone] documented in this encounter Visit Diagnoses Diagnosis Anaphylactic shock Other anaphylactic reaction documented in this encounter Care Teams Director Of Placement Relationship Specialty Start Date End Date Magy Medina NP [address] [facility] [address] [place] [address] PCP - General 12/23/16 01/10/24 Magy Medina NP [address] [place] [address] PCP - General 12/05/16 12/22/16 documented as of this encounter
--- OUTSIDE RECORDS SUMMARY | 2024-06-05 20:31 | XMS_ITS | Encounter Summary ---
Author Organization [facility] Address [address] [place] [address]. [place], [place] [id number] [place] [address] Care Team Providers Care Leather Stretcher Name Role Phone Magy Medina WINDER HELPER Primary Care Provider [phone] Holthaus, Magy WINDER HELPER Primary Care Provider [phone] Holthaus, Magy WINDER HELPER Primary Care Provider [phone] Holthaus, Magy WINDER HELPER Primary Care Provider [phone] Holthaus, Magy WINDER HELPER Primary Care Provider [phone] Holthaus, Magy WINDER HELPER Primary Care Provider [phone] Holthaus, Magy WINDER HELPER Primary Care Provider [phone] Holthaus, Magy WINDER HELPER Primary Care Provider [phone] Holthaus, Magy WINDER HELPER Primary Care Provider [phone] Md Generic Misha MEEK Primary Care Provider Unavailable Md Generic Misha MEEK Primary Care Provider Unavailable Md Generic Misha [facility]EEK Primary Care Provider Unavailable Sondra Marley MD Primary Care Provider [phone] Sondra Marley MD Primary Care Provider [phone] Encounter Details Date Type Department Care Team (Late st Contact Info) Description 02/14/[address] [facility] Emergency Room [place], [place] [address] Derrek Meek MD Social History Tobacco Use Types Packs/Day Years Used Date Smoking Tobacco: Never Assessed Comments Unknown Sex and Gender Information Value Date Recorded Sex Assigned at Not on file Legal Sex Female 7:19 PM CDT Gender Identity Not on file Sexual Orientation Not on file documented as of this encounter Plan of Treatment Not on file documented as of this encounter Visit Diagnoses Diagnosis Contusion of hand Contusion of hand(s) documented in this encounter Care Teams Leather Stretcher Relationship Specialty Start Date End Date Magy Medina NP [address] [place] [address] PCP - General 12/23/16 01/10/24 Magy Medina NP [address] [place], [place] [address] PCP - General 12/05/16 12/22/16 Magy Medina NP [address] [place], [place] [address] PCP - General 11/27/16 12/04/16 Magy Medina NP [address] [place] [address] PCP - General 11/20/16 11/26/16 Magy Medina NP [address] [place], [place] [address] PCP - General 11/15/16 11/19/16 Magy Medina NP [address] [place], [place] [address] PCP - General 10/31/16 11/14/16 Magy Medina NP [address] [place] [address] PCP - General 10/29/16 10/30/16 Magy Medina NP 3 [facility] [address] [place] [address] PCP - General 10/24/16 10/28/16 Magy Medina NP 3 [facility] [address] [place] [address] PCP - General 10/22/16 10/23/16 , Generic Conversion, PCP - General 10/14/16 , Generic Conversion, PCP - General 01/28/16 Md, Generic Conversion, PCP - General 09/21/15 Sondra Marley MD [address] [place] [address] PCP - General 09/05/12 09/20/15 Sondra Marley MD [address] [place] [address] PCP - General 02/14/11 09/04/12 documented as of this encounter
--- OUTSIDE RECORDS SUMMARY | 2024-06-05 20:31 | XMS_ITS | Encounter Summary ---
Author Organization [facility] Address [address] [place] [address]. [place], [place] [address] [place] [address] Care Team Providers Care Inner Tube Cutter Name Role Phone Magy Medina ENGINE LATHE SET UP OPERATOR Primary Care Provider [phone] Holthaus, Magy ENGINE LATHE SET UP OPERATOR Primary Care Provider [phone] Holthaus, Magy ENGINE LATHE SET UP OPERATOR Primary Care Provider [phone] Holthaus, Magy ENGINE LATHE SET UP OPERATOR Primary Care Provider [phone] Holthaus, Magy ENGINE LATHE SET UP OPERATOR Primary Care Provider [phone] Holthaus, Magy ENGINE LATHE SET UP OPERATOR Primary Care Provider [phone] Holthaus, Magy ENGINE LATHE SET UP OPERATOR Primary Care Provider [phone] Holthaus, Magy ENGINE LATHE SET UP OPERATOR Primary Care Provider [phone] Holthaus, Magy ENGINE LATHE SET UP OPERATOR Primary Care Provider Md Generic Conversion Primary Care Provider Unavailable Md Generic Conversion Primary Care Provider Unavailable Md Generic Conversion Primary Care Provider Unavailable Sondra Marley MD Primary Care Provider [phone] Sondra Marley MD Primary Care Provider [phone] Encounter Details Date Type Department Care Team (Late st Contact Info) Description 08/04/1996 [place] [address] Md Generic ConversionMD Social History Tobacco Use Types Packs/Day Years [...] on filedocumented in this encounter Care Teams Inner Tube Cutter Relationship Specialty Start Date End Date Magy Medina NP [address] [place], [place] [address] PCP - General 12/23/16 01/10/24 Magy Medina NP [address] [place], [place] [address] PCP - General 12/05/16 12/22/16 Magy Medina NP [address] [place], [place] [address] PCP - General 11/27/16 12/04/16 Magy Medina NP [address] [place], [place] [id number] PCP - General 11/20/16 11/26/16 Magy Medina NP [address] [place], [place] [address] PCP - General 11/15/16 11/19/16 Magy Medina NP [address] [place], [place] [id number] PCP - General 10/31/16 11/14/16 Magy Medina NP [address] [place], [place] [address] PCP - General 10/29/16 10/30/16 Magy Medina NP 3 [facility] [address] [place] [address] PCP - General 10/24/16 10/28/16 Magy Medina NP 3 [facility] [address] [place] [address] PCP - General 10/22/16 10/23/16 , Generic Conversion, PCP - General 10/14/16 Md, Generic Conversion, PCP - General 01/28/16 7 Md, Generic Conversion, PCP - General 09/21/15 Sondra Marley MD [address] [place] [address] PCP - General 09/05/12 09/20/15 Sondra Marley MD [address] [place] [address] PCP - General 02/14/11 09/04/12 documented as of this encounter
--- OUTSIDE RECORDS SUMMARY | 2024-06-05 20:31 | XMS_ITS | Encounter Summary ---
Author Organization [facility] Address [address] [place] [address]. [place], [place] [id number] [place] [id number] Care Team Providers Care Manager International Name Role Phone Ho Medina NP Primary Care Provider [phone] Reason for Visit * Reason Comments Headache Back Pain Encounter Details Date Type Department Care Team (Late st Contact Info) Description 05/22/2023 3:12 PM PRINTED CIRCUIT BOARDS BEVELER - 05/22/2023 3:25 PM PRINTED CIRCUIT BOARDS BEVELER Emergency [facility] [place] [address] Ifrah Lynn, KYREE [address] [id number] Headache; Back Pain Discharge Disposition: Home or Self Care [...] Sign Reading Time Taken Comments Blood Pressure 134/97 05/22/2023 2:47 PM PRINTED CIRCUIT BOARDS BEVELER Pulse 91 05/22/2023 2:47 PM PRINTED CIRCUIT BOARDS BEVELER Temperature 36.2 ??C (97.1 ??F) 05/22/2023 2:47 PM CS T Respiratory Rate 16 05/22/2023 2:47 PM PRINTED CIRCUIT BOARDS BEVELER Oxygen Saturation 100% 05/22/2023 2:47 PM PRINTED CIRCUIT BOARDS BEVELER Inhaled Oxygen Concentration - - Weight 76.2 kg (168 lb) 05/22/2023 2:47 PM PRINTED CIRCUIT BOARDS BEVELER Height - - Body Mass Index 30.73 12/05/2022 8:12 AM CDT documented in this encounter Discharge Instructions * Discharge Instructions* KYREE Sanches - 05/22/2023 2:54 PM PRINTED CIRCUIT BOARDS BEVELER Thank you for giving us the opportunity to care for you today. If at any point you are becoming more ill, please call your doctor or return here. You are always welcome back. Our practice is committed to providing you the very best in healthcare. We want to hear from you! Please fill out the survey you get from us. Your feedback is anonymous & helps us improve the patient experience for you and others in the community we serve. - ESTHER Hollins PA-C - Emergency Medicine Provider ADDITIONAL DISCHARGE INSTRUCTIONS: --Emergency Departments (ED) provide medical screening exams and initial stabilizing treatment of emergency medical conditions. Medicine is an inexact science and many conditions cannot be diagnosed or completely treated during a single ED visit. Your treating healthcare provider(s) today feel yourcondition has been stabilized so further care as an outpatient is reasonable. Emergency care does not substitute for complete, ongoing, or follow-up care by your primary care physician or sustainability consultant.Please mention to your follow-up physician that you were in the emergency department and request that they review your labs and/or imaging to ensure all findings are followed up on. --Your medication list was reviewed prior to treatment, and at discharge, by the treating provider for the purpose of this outpatient visit only. Please review this entire medication list with your pharmacist, primary care physician, and specialist(s). It is your responsibility to share any new medication instructions you received this visit with your doctor(s). Although no medicine is without risk, your healthcare provider today feels reasonable decisions were made concerning starting new medications and stopping or changing the dosages of your usual medications until you receive follow-up care. Take medications only as directed. Many medications can cause drowsiness, especially those for pain, anxiety, muscle spasms, nausea, and allergies. DO NOT drive, drink alcohol, operate power machinery, or participate in potentially dangerous activities if taking medicines that make you tired. Chronic pain is best managed by pain specialists or primary care physicians, so narcotic refills are not routinely dispensed in the ED. DO NOT take multiple medications containing acetaminophen (Tylenol), such as many narcotic drug combinations and htas-tqg-bkydqrx cold medicines. TED CIRCUIT BOARDS BEVELER * Attachments The following attachments cannot be sent through Care Everywhere. * Tension Headache (New Zealander) * Upper Back Pain Discharge Instructions ([place] Zealander) * Exercises for Upper Back Pain ([place] Zealander) documented in this encounter Medications at Time of Discharge albuterol sulfate HFA 108 (90 BASE) MCG/ACT inhaler Inhale 2 puffs into the lungs every 6 (six) hours as needed for Wheezing. hydroCHLOROthiazi de (HYDRODIURIL) 25 MG tablet Take 1 tablet (25 mg total) by mouth every morning. 30 tablet 08/02/2022 ibuprofen 600 MG tablet Take 1 tablet (600 mg total) by mouth every 8 (eight) hours as needed for Pain. 30 tablet 12/17/2017 meloxicam (MOBIC) 15 MG tablet Take 1 tablet (15 mg total) by mouth daily. 20 tablet 05/22/2023 cyclobenzaprine (FLEXERIL) 10 MG tablet Take 1 tablet (10 mg total) by mouth 3 (three) times daily as needed. 12 tablet 05/22/2023 05/26/2023 documented as of this encounter ED Notes * Rebecca Echavarria RN - 05/22/2023 3:25 PM CST Provider discussed today's findings with the patient/family. The patient has been given informationregarding their treatment, follow up and concerning symptoms for which they should seek urgent or emergent attention. I have expressed the the importance of seeking attention should there be any new,or worsening symptoms or persistence of their condition. Patient verbalized understanding of the discharge instructions. TED CIRCUIT BOARDS BEVELER * Ifrah MistryKYREE harper - 05/22/2023 2:53 PM CST [place], [place] EMERGENCY DEPARTMENT ENCOUNTER HISTORICAL INFORMATION Primary Care Doctor: HO MEDINA NP Patient information was obtained primarily from the patient, nursing notes. History/Exam limitations: None Provider at Bedside Date/Time Event User Comments 05/22/23 9555 Provider at Bedside Assessing Patient IFRAH LYNN Michelle -- CHIEF COMPLAINT Headache and Back Pain Chief Complaint Patient presents with Headache Back Pain HPI Jenny Johnson is a 32-year-old female who presents with pain to her neck and back. States painis causing her to have headaches. Sx for a couple weeks. No new injury. Hx scoliosis; sees a chiropractor. Taking meloxicam previously but ran out. Has also tried ibuprofen or aleve. Has an appt to see PCP in a few weeks. Had XRs recently. PAST MEDICAL HISTORY Past Medical History: Diagnosis Date Asthma COVID-19 Scoliosis SURGICAL HISTORY Past Surgical History: Procedure Laterality Date DELIVERY ONLY CURRENT MEDICATIONS No current facility-administered medications for this encounter. Current Outpatient Medications: cyclobenzaprine (FLEXERIL) 10 MG tablet, Take 1 tablet (10 mg total) by mouth 3 (three) times dailyas needed., Disp: 12 tablet, Rfl: 0 meloxicam (MOBIC) 15 MG tablet, Take 1 tablet (15 mg total) by mouth daily., Disp: 20 tablet, Rfl: 0 albuterol sulfate HFA 108 (90 BASE) MCG/ACT inhaler, Inhale 2 puffs into the lungs every 6 (six) hours as needed for Wheezing., Disp: , Rfl: hydroCHLOROthiazide (HYDRODIURIL) 25 MG tablet, Take 1 tablet (25 mg total) by mouth every morning., Disp: 30 tablet, Rfl: 0 ibuprofen 600 MG tablet, Take 1 tablet (600 mg total) by mouth every 8 (eight) hours as needed for Pain., Disp: 30 tablet, Rfl: 0 ALLERGIES Review of patient's allergies indicates: Allergen Reactions Latex Rash FAMILY HISTORY Family History Problem Relation Name Age of Onset Diabetes Mother Hypertension Mother Stroke Mother Asthma Mother SOCIAL HISTORY Social History Socioeconomic History Marital status: Single Tobacco Use Smoking status: Never Smokeless tobacco: Never Substance and Sexual Activity Alcohol use: No Drug use: No REVIEW OF SYSTEMS Musculoskeletal: +Neck and back pain- headaches. See HPI for further details. Physical Exam VITAL SIGNS: Filed Vitals: 05/22/23 1447 BP: (!) 134/97 Pulse: 91 Resp: 16 Temp: 97.1 ??F (36.2 ??C) SpO2: 100% Weight: 76.2 kg (168 lb) Constitutional: Well developed, No acute distress, Non-toxic appearance. Integument: Warm, Dry HEENT: Normocephalic, Atraumatic Neck/Back- Bilateral cervical paraspinous and trapezius region with tenderness, Sensation intact, Normal range of motion, No gross abnormality Respiratory: No respiratory distress. Cardiovascular: Normal heart rate Musculoskeletal: Good ROM, no deformities noted Neurologic: Alert, No focal deficits noted. Psychiatric: Affect normal, Judgment normal, Mood normal. EKG (interpreted by ED provider) No results found for this visit on 05/22/23. LABORATORY No results found for this visit on 05/22/23. RADIOLOGY No orders to display PROCEDURES Procedures MDM Pt showed me XRs she had completed by chiropractor- significant scoliosis present. Has appt with PCP upcoming. Advised on limitation of further ER evaluation at this time but discussed that we can provide some additional medication to help with pain. With patient's neck pain contributing to her head ache did discuss possibility of a tension headache therefore will discharge home with Flexeril. Emphasized importance of keeping appointment with for follow-up with PCP. I have discussed today's findings with the patient and provided information regarding the likely diagnosis. The patient has been given information regarding their treatment, follow up and concerning symptoms for which they should seek urgent or emergent attention. I have expressed the the importance of seeking attention should there be any new, or worsening symptoms or persistence of their condition. The patient is stable at discharge and has verbalized understanding of these instructions. Impression/Disposition SNOMED CT(R) 1. Tension headache TENSION-TYPE HEADACHE 2. Upper back pain BACKACHE Disposition: Discharge Medications - No data to display Discharge Medication List as of 05/22/2023 3:18 PM START taking these medications Details cyclobenzaprine (FLEXERIL) 10 MG tablet Take 1 tablet (10 mg total) by mouth 3 (three) times daily as needed., Starting Felicita 05/22/2023, Until 05/26/2023 at 2359, Eprescribe Class: Eprescribe Pharmacy: [id number] [address] [facility] (Ph #: [phone]) meloxicam (MOBIC) 15 MG tablet Take 1 tablet (15 mg total) by mouth daily., Starting [facility] 05/22/2023, Eprescribe Class: Eprescribe Pharmacy: [facility] #[id number] [place], [place] - [address] [facility] (Ph #: [phone]) KYREE SANCHES PA 05/22/231915 Cosigned by Shawn Kiran MD at 05/22/2023 8:08 PM PRINTED CIRCUIT BOARDS BEVELER TED CIRCUIT BOARDS BEVELER TED CIRCUIT BOARDS BEVELER * Zoey Ya RN - 05/22/2023 2:48 PM CST Pt arrives with c/o possible pinched nerve and headache. Per pt, she states she has a hx of scoliosis and has recently been seeing a chiropractor again. Pt reporting headache pain and back pain that radiates down legs that has been going on for the last couple weeks. Pt denies injury and states sheis out of meloxicam. TED CIRCUIT BOARDS BEVELER documented in this encounter Plan of Treatment Not on file documented as of this encounter Visit Diagnoses Diagnosis Tension headache- Primary Upper back pain documented in this encounter Care Teams Manager International Relationship Specialty Start Date End Date Ho Medina NP [address] [facility] [address] [place] [address] PCP - General 12/23/16 01/10/24 documented as of this encounter
--- OUTSIDE RECORDS SUMMARY | 2024-06-05 20:31 | XMS_ITS | Encounter Summary ---
Author Organization [facility] Address [address] [place] [address]. [place], [place] [address] [place] [address] Care Team Providers Care Air Bag Curer Name Role Phone Magy Medina MAINTENANCE TEAM LEADER Primary Care Provider [phone] [place], Magy MAINTENANCE TEAM LEADER Primary Care Provider [phone] Holthaus, Magy MAINTENANCE TEAM LEADER Primary Care Provider [phone] Holthaus, Magy MAINTENANCE TEAM LEADER Primary Care Provider [phone] Holthaus, Magy MAINTENANCE TEAM LEADER Primary Care Provider [phone] Holthaus, Magy MAINTENANCE TEAM LEADER Primary Care Provider [phone] Holthaus, Magy MAINTENANCE TEAM LEADER Primary Care Provider [phone] Holthaus, Magy MAINTENANCE TEAM LEADER Primary Care Provider [phone] Holthaus, Magy MAINTENANCE TEAM LEADER Primary Care Provider [phone] Md Generic Conversion Primary Care Provider Unavailable Md Generic Conversion Primary Care Provider Unavailable Md Generic Conversion Primary Care Provider Unavailable Sondra Marley MD Primary Care Provider [phone] Sondra Marley MD Primary Care Provider [phone] Encounter Details Date Type Department Care Team (Late st Contact Info) Description 12/24/[address] [facility] [address] [place] [address] Md Generic MD Misha Social History Tobacco Use Types Packs/Day Years [...] on filedocumented in this encounter Care Teams Air Bag Curer Relationship Specialty Start Date End Date Magy Medina NP [address] [place] [address] PCP - General 12/23/16 01/10/24 Magy Medina NP [address] [place], [place] [id number] PCP - General 12/05/16 12/22/16 Magy Medina NP [address] [place], [place] [address] PCP - General 11/27/16 12/04/16 Magy Medina NP [address] [place], [place] [address] PCP - General 11/20/16 11/26/16 Magy Medina NP [address] [place], [place] [address] PCP - General 11/15/16 11/19/16 Magy Medina NP [address] [place], [place] [address] PCP - General 10/31/16 11/14/16 Magy Medina NP [address] [place], [place] [address] PCP - General 10/29/16 10/30/16 Magy Medina NP [address] [facility] [address] [place] [address] PCP - General 10/24/16 10/28/16 Magy Medina NP [address] [facility] [address] [place] [address] PCP - General 10/22/16 10/23/16 , Generic Conversion, PCP - General 10/14/16 , Generic Conversion, PCP - General 01/28/16 , Generic Conversion, PCP - General 09/21/15 Sondra Marley MD [address] [place] [address] PCP - General 09/05/12 09/20/15 Sondra Marley MD [address] [place] [address] PCP - General 02/14/11 09/04/12 documented as of this encounter
--- OUTSIDE RECORDS SUMMARY | 2024-06-05 20:31 | XMS_ITS | Encounter Summary ---
Author Organization [facility] Address [address] [place] [address]. 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 Name Role Phone Kristopher Askew MD Primary Care Provider [phone] Reason for Visit * Reason Comments Foot Pain Encounter Details Date Type Department Care Team (Late st Contact Info) Description 01/11/2024 6:59 AM CDT - 01/11/2024 9:05 AM CDT Emergency [facility] [place] [address] Hola Haro MD [address] [address] Foot Pain Discharge Disposition: Home or Self Care [...] Mass Index 32.12 01/11/2024 6:15 AM CDT documented in this encounter Discharge Instructions * Discharge Instructions* Hola Haro MD - 01/11/2024 7:18 AM CDT Keep wounds dry for 24 hours. After 24 hours you can clean with mild soap and water. Do not submerge in water until stitches are removed. Change dressing once per day. Use postop shoe. Follow-up withpodiatry. Return to ER for new or worsening symptoms or any other concerns. Take antibiotics as prescribed. You may take [id number] ibuprofen according to package instructions as needed for pain. * Attachments The following attachments cannot be sent through Care Everywhere. * Laceration Repair With Glue Discharge Instructions (Finnish) * Toe Injury Discharge Instructions (Finnish) documented in this encounter Medications at Time [...] total) by mouth daily. 20 tablet 05/22/2023 amoxicillin-clavu lanate (AUGMENTIN) 875-125 MG tablet Take 1 tablet (875 mg total) by mouth 2 (two) times daily for 7 days. 14 tablet 01/11/2024 01/18/2024 documented as of this encounter ED Notes * Yohannes Gaming RN - 01/11/2024 9:05 AM CDT Provider discussed today's findings with the patient/family. The patient has been given informationregarding their treatment, follow up and concerning symptoms for which they should seek urgent or emergent attention. I have expressed the the importance of seeking attention should there be any new,or worsening symptoms or persistence of their condition. Patient verbalized understanding of the discharge instructions. * Yohannes Gaming RN - 01/11/2024 8:47 AM CDT Pt left third and fourth toe wrapped with non-adhesive gauze and paper tape. * Yohannes Gaming RN - 01/11/2024 7:58 AM CDT Pt asking to speak with provider about plan of care. Provider made aware. * Hola Haro MD - 01/11/2024 7:23 AM CDTAssociated Order(s): Lac Repair; Lac Repair [place], [place] EMERGENCY DEPARTMENT ENCOUNTER Chief Complaint Chief Complaint Patient presents with ??? Foot Pain History of Present Illness Provider at Bedside Date/Time Event User Comments 01/11/24 0711 Provider at Bedside Assessing Patient HOLA HARO -- Foot Pain Associated symptoms: no chest pain, no cough, no fever, no headaches, no nausea, no shortness of breath and no vomiting The patient is a 33-year-old female with a PMH of asthma and scoliosis who presents to the ED for evaluation of foot pain. Patient states that a glass dropped on her foot yesterday and she stepped down onto the broken pieces. Patient reports pain and bleeding of her left toes. Medical History ALLERGIES: Review of patient's allergies indicates: Allergen Reactions ??? Latex Rash MEDICATIONS: Prior to Admission medications Medication Sig Start Date End Date Taking? Authorizing Provider amoxicillin-clavulanate (AUGMENTIN) 875-125 MG tablet Take 1 tablet (875 mg total) by mouth 2 (two)times daily for 7 days. 01/11/24 01/18/24 Yes Hola Haro MD albuterol sulfate HFA 108 (90 BASE) MCG/ACT inhaler Inhale 2 puffs into the lungs every 6 (six) hours as needed for Wheezing. Doc [facility] cyclobenzaprine (FLEXERIL) 10 MG tablet Take 1 tablet (10 mg total) by mouth 3 (three) times daily as needed for Muscle Spasms. 07/08/23 Karlo Casarez PA-C diclofenac EC (VOLTAREN) 50 MG tablet Take 1 tablet (50 mg total) by mouth 2 (two) times daily. 07/08/23 Karlo Casarez PA-C hydroCHLOROthiazide (HYDRODIURIL) 25 MG tablet Take 1 [...] MEDICAL HISTORY: Past Medical History: Diagnosis Date ??? Asthma (HHS/HCC) ??? COVID-19 ??? Scoliosis PAST SURGICAL HISTORY: Past Surgical History: Procedure Laterality Date ??? DELIVERY ONLY FAMILY HISTORY: Family History Problem Relation Name Age of Onset ??? Diabetes Mother ??? Hypertension Mother ??? Stroke Mother ??? Asthma Mother SOCIAL HISTORY: Social History Tobacco Use ??? Smoking status: Never ??? Smokeless tobacco: Never Substance Use Topics ??? Alcohol use: No ??? Drug use: No Review of Systems Review of Systems Constitutional: Negative for chills and fever. Respiratory: Negative for cough and shortness of breath. Cardiovascular: Negative for chest pain. Gastrointestinal: Negative for nausea and vomiting. Skin: Positive for wound. Neurological: Negative for light-headedness and headaches. Physical Exam Filed Vitals: 01/11/24 0615 BP: (!) 137/90 Pulse: 79 Resp: 19 Temp: 97.8 ??F (36.6 ??C) TempSrc: Oral SpO2: 100% Weight: 77.1 kg (170 lb) Height: 1.549 m (5' 1 ) Physical Exam Vitals and nursing note reviewed. Constitutional: Appearance: She is well-developed. HENT: Head: Normocephalic and atraumatic. Eyes: Conjunctiva/sclera: Conjunctivae normal. Cardiovascular: Rate and Rhythm: Normal rate and regular rhythm. Pulmonary: Effort: Pulmonary effort is normal. Breath sounds: Normal breath sounds. No stridor. Abdominal: General: Bowel sounds are normal. Palpations: Abdomen is soft. Tenderness: There is no abdominal tenderness. Musculoskeletal: General: No deformity. Cervical back: Neck supple. Feet: Comments: 1cm Laceration to plantar aspect of 3rd toe and 0.5cm lacertion of plantar aspect of 4th toe of left foot. Skin: General: Skin is warm and dry. Neurological: Mental Status: She is alert and oriented to person, place, and time. Diagnostic Studies / Procedures ELECTROCARDIOGRAMS: No results found for this visit on 01/11/24. LABORATORY STUDIES: No results found for this visit on 01/11/24. IMAGING STUDIES XR FOOT LT 3V Final Result by User, [id number] (01/10 709) Exam date/time: 01/11/2024 6:44 AM Examination: Left foot 3 views Reason For Exam: Third and fourth toe laceration after stepping on glass Comparison: 10/28/2008 Findings: No acute fracture or dislocation. The bones are well aligned. Minimal degenerative changes with few tiny spurs. No suspicious sclerotic or lytic bone lesions. No radiopaque foreign body. Minimal swelling. ===== IMPRESSION:===== No acute fracture or radiopaque foreign body. Referred By: Interpreted By: Stanislaw Aleman MD, 01/11/2024 7:04 AM Lac Repair Date/Time: 01/11/2024 8:41 AM Performed by: Hola Haro MD Authorized by: Hola Haro MD Consent: Consent obtained: Verbal Consent given by: Patient Anesthesia: Anesthesia method: Local infiltration Local anesthetic: Lidocaine 1% w/o epi Laceration details: Location: Toe Toe location: L third toe Length (cm): 1 Pre-procedure details: Preparation: Patient was prepped and draped in usual sterile fashion Exploration: Hemostasis achieved with: Direct pressure Imaging outcome: foreign body not noted Wound exploration: wound explored through full range of motion and entire depth of wound visualized Treatment: Area cleansed with: Saline Amount of cleaning: Extensive Irrigation solution: Sterile saline Irrigation method: Syringe Skin repair: Repair method: Sutures Suture size: 5-0 Suture material: Nylon Suture technique: Simple interrupted Number of sutures: 2 Approximation: Approximation: Close Repair type: Repair type: Simple Post-procedure details: Dressing: Non-adherent dressing and splint for protection Procedure completion: Tolerated well, no immediate complications Lac Repair Date/Time: 01/11/2024 8:43 AM Performed by: Hola Haro MD Authorized by: Hola Haro MD Consent: Consent obtained: Verbal Consent given by: Patient Laceration details: Location: Toe Toe location: L fourth toe Length (cm): 0.5 Pre-procedure details: Preparation: Patient was prepped and draped in usual sterile fashion Exploration: Hemostasis achieved with: Direct pressure Wound exploration: wound explored through full range of motion and entire depth of wound visualized Treatment: Area cleansed with: Saline Amount of cleaning: Extensive Irrigation solution: Sterile saline Irrigation method: Syringe Visualized foreign bodies/material removed: no Skin repair: Repair method: Sutures Suture size: 5-0 Suture material: Nylon Suture technique: Simple interrupted Number of sutures: 1 Approximation: Approximation: Close Repair type: Repair type: Simple Post-procedure details: Dressing: Non-adherent dressing and splint for protection Procedure completion: Tolerated well, no immediate complications ED Course / Medical Decision Making Medical Decision Making See HPI. Problems Addressed: Toe laceration: acute illness or injury Amount and/or Complexity of Data Reviewed Radiology: ordered. Decision-making details documented in ED Course. Risk OTC drugs. Prescription drug management. ED Course as of 01/11/24 0850 Sun Jan 11, 2024 0710 X-ray of the left foot shows no acute fracture or foreign body [] 0849 Discussed all results with patient. Discussed home care, return precautions and need for follow up. Patient verbalized understanding and agreement with plan. [] ED Course User Index [] Hola Haro MD Pulse Ox ordered and interpreted: Saturation: 100 (%) Oxygen Delivery: room air Interpretation: No acute hypoxia at this time. Data reviewed: All current, pertinent and timely studies (laboratory, imaging, and procedures) wereordered and results reviewed by Hola Haro MD unless otherwise noted. Triage notes and available nursing notes reviewed. Previous medical record reviewed when available. Repeat vital signs reviewed. Medications ibuprofen (MOTRIN) tablet 800 mg (800 mg Oral Not Given 01/11/24 0747) sodium chloride 0.9 % irrigation 250 mL (250 mLs Irrigation New Bag 01/11/24 0847) Tdap (BOOSTRIX) injection 0.5 mL (0.5 mLs Intramuscular Given 01/11/24 0752) lidocaine (XYLOCAINE) 1 % injection SOLN 5 mL (5 mLs Intradermal Given 01/11/24 0846) Clinical Impression Toe laceration (Primary) Current Discharge Medication List START taking these medications Details amoxicillin-clavulanate (AUGMENTIN) 875-125 MG tablet Take 1 tablet (875 mg total) by mouth 2 (two)times daily for 7 days. Qty: 14 tablet, Refills: 0 Class: Eprescribe [id number] [place] [address] [address] [facility] (Ph #: [phone]) Disposition: Discharge Follow-Up: Kristopher Askew MD I, Dary Khan, acting as a scribe, am personally taking down the notes in the presence of Hola Haro MD. Take no action on this note until reviewed and authenticated by the physician. Hola Haro MD 01/11/24 0850 * Raheel Sharma RN - 01/11/2024 6:14 AM CDT Pt to ed with c/o L foot pain. States thinks there may be broken glass in foot. Reports stepped on broken glass around 0300 this morning. Pt a&ox4. documented in this encounter Plan of Treatment Not on file documented as of this encounter Procedures Procedure Name Priority Date/Time Associated Diagnosis Comments LACERATION REPAIR Routine 01/11/2024 8:4 3 AM CDT LACERATION REPAIR Routine 01/11/2024 8:4 1 AM CDT XR FOOT LT 3V STAT 01/11/2024 6:59 AM CDT documented in this encounter Results * Lac Repair (01/11/2024 8:43 AM CDT) Narrative Hola Haro MD - 01/11/2024 8:43 AM CDT Hola Haro MD ? 01/11/2024 ??8:50 AM Lac Repair Date/Time: 01/11/2024 8:43 AM Performed by: Hola Haro MD Authorized by: Hola Haro MD ?? Consent: ??Consent obtained: ??Verbal ??Consent given by: ??Patient Laceration details: ??Location: ??Toe ??Toe location: ??L fourth toe ??Length (cm): ??0.5 Pre-procedure details: ??Preparation: ??Patient was prepped and draped in usual sterile fashion Exploration: ??Hemostasis achieved with: ??Direct pressure ??Wound exploration: wound explored through full range of motion and entire depth of wound visualized ?? Treatment: ??Area cleansed with: ??Saline ??Amount of cleaning: ??Extensive ??Irrigation solution: ??Sterile saline ??Irrigation method: ??Syringe ??Visualized foreign bodies/material removed: no ?? Skin repair: ??Repair method: ??Sutures ??Suture size: ??5-0 ??Suture material: ??Nylon ??Suture technique: ??Simple interrupted ??Number of sutures: ??1 Approximation: ??Approximation: ??Close Repair type: ??Repair type: ??Simple Post-procedure details: ??Dressing: ??Non-adherent dressing and splint for protection ??Procedure completion: ??Tolerated well, no immediate complications us Hola Haro MD PROCEDURE/MINOR SURGICAL ORDE RABSLIME Final Result * Lac Repair (01/11/2024 8:41 AM CDT) Hola Lucero MD - 01/11/2024 8:41 AM CDT Hola Haro MD ? 01/11/2024 ??8:50 AM Lac Repair Date/Time: 01/11/2024 8:41 AM Performed by: Hola Haro MD Authorized by: Hola Haro MD ?? Consent: ??Consent obtained: ??Verbal ??Consent given by: ??Patient Anesthesia: ??Anesthesia method: ??Local infiltration ??Local anesthetic: ??Lidocaine 1% w/o epi Laceration details: ??Location: ??Toe ??Toe location: ??L third toe ??Length (cm): ??1 Pre-procedure details: ??Preparation: ??Patient was prepped and draped in usual sterile fashion Exploration: ??Hemostasis achieved with: ??Direct pressure ??Imaging outcome: foreign body not noted ?Wound exploration: wound explored through full range of motion and entire depth of wound visualized ?? Treatment: ??Area cleansed with: ??Saline ??Amount of cleaning: ??Extensive ??Irrigation solution: ??Sterile saline ??Irrigation method: ??Syringe Skin repair: ??Repair method: ??Sutures ??Suture size: ??5-0 ??Suture material: ??Nylon ??Suture technique: ??Simple interrupted ??Number of sutures: ??2 Approximation: ??Approximation: ??Close Repair type: ??Repair type: ??Simple Post-procedure details: ??Dressing: ??Non-adherent dressing and splint for protection ??Procedure completion: ??Tolerated well, no immediate complications us Hola Haro MD PROCEDURE/MINOR SURGICAL ORDE RABLES Final Result * XR FOOT LT 3V (01/11/2024 6:59 AM CDT) Anatomical Region Laterality Modality Foot Radiographic Ligia ging 01/11/2024 7:04 AM CDT Impressions 01/11/2024 7:08 AM CDT IMPRESSION:===== No acute fracture or radiopaque foreign body. Referred By: ?? Interpreted By: Stanislaw Aleman MD, 01/11/2024 7:04 AM Narrative 01/11/2024 7:08 AM CDT Exam date/time: 01/11/2024 6:44 AM Examination: Left foot 3 views Reason For Exam: ??Third and fourth toe laceration after stepping on glass ?? Comparison: 10/28/2008 Findings: No acute fracture or dislocation. The bones are well aligned. Minimal degenerative changes with few tiny spurs. No suspicious sclerotic or lytic bone lesions. No radiopaque foreign body. Minimal swelling. ===== Procedure Note Stanislaw Aleman MD - 01/11/2024 Exam date/time: 01/11/2024 6:44 AM Examination: Left foot 3 views Reason For Exam: Third and fourth toe laceration after stepping on glass Comparison: 10/28/2008 Findings: No acute fracture or dislocation. The bones are well aligned.Minimal degenerative changes with few tiny spurs. No suspicious scleroticor lytic bone lesions. No radiopaque foreign body. Minimal swelling. ===== IMPRESSION:===== No acute fracture or radiopaque foreign body. Referred By: Interpreted By: Stanislaw Aleman MD, 01/11/2024 7:04 AM Hola Haro MD GENERAL IMAGING Final Result documented in this encounter Visit Diagnoses Diagnosis Toe laceration- Primary Open wound of toe(s), without mention of complication documented in this encounter Administered Medications Inactive Administered Medications - up to 3 most recent administrations Medication Order MAR Action Action Date Dose Rate Site lidocaine (XYLOCAINE) 1 % injection SOLN 5 mL 5 mL, Intradermal, Once, 1 dose, On 01/11/24 at 0815 Given 01/11/2024 8:46 AM CDT 5 mLs Left Foot sodium chloride 0.9 % irrigation 250 mL 250 mL, Irrigation, Continuous, Starting on 01/11/24 at 0830, Until 01/11/24 at 1105 New Bag 01/11/2024 8:47 AM CDT 250 mLs documented in this encounter Active and Recently Administered Medications Times are shown in CDT. Scheduled Medication Order 01/09/2024 01/10/2024 01/11/2024 ibuprofen (MOTRIN) tablet 800 mg 800 mg, Oral, Once, 1 dose, On 01/11/24 at 0730 0747 (Not Given - Pr ovider: Yohannes Gaming RN - Reason: Patient/family declined) lidocaine (XYLOCAINE) 1 % injection SOLN 5 mL (COMPLETED) 5 mL, Intradermal, Once, 1 dose, On 01/11/24 at 0815 0846 (Given - Provid er: Yohannes Gmaing RN) Continuous Medication Order 01/09/2024 01/10/2024 01/11/2024 sodium chloride 0.9 % irrigation 250 mL 250 mL, Irrigation, Continuous, Starting on 01/11/24 at 0830, Until 01/11/24 at 1105 0847 (New Bag - Prov ider: Yohannes Gaming RN)0848 (Infusion Stop Time - Provider: Yohannes Gaming RN) documented in this encounter Care Teams Roughing Mill Operator Relationship Specialty Start Date End Date Krsitopher Askew MD [address] [place], [place] [id number] PCP - General FAMILY PRACTICE 01/11/24 documented as of this encounter
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
--- OUTSIDE RECORDS SUMMARY | 2024-06-05 20:31 | XMS_ITS | Encounter Summary ---
Author Organization [facility] Address [address] [place] [address]. [place], [place] [id number] [place] [id number] Care Team Providers Care Mechanic Industrial Truck Name Role Phone Holbabar, Magy SOLID WASTE DISPOSAL MANAGER Primary Care Provider Holthaus, Magy SOLID WASTE DISPOSAL MANAGER Primary Care Provider [phone] Holthaus, Magy SOLID WASTE DISPOSAL MANAGER Primary Care Provider [phone] Holthaus, Magy SOLID WASTE DISPOSAL MANAGER Primary Care Provider Holthaus, Magy SOLID WASTE DISPOSAL MANAGER Primary Care Provider Holthaus, Magy SOLID WASTE DISPOSAL MANAGER Primary Care Provider [phone] Holthaus, Magy SOLID WASTE DISPOSAL MANAGER Primary Care Provider Holthaus, Magy SOLID WASTE DISPOSAL MANAGER Primary Care Provider Holthaus, Magy SOLID WASTE DISPOSAL MANAGER Primary Care Provider Derrek George MD Primary Care Provider Unavailable Encounter Details Date Type Department Care Team (Late st Contact Info) Description 10/14/[address] [facility] [address] [place] [address] Jia Garcia APNP [address] [place] [address] Social History Tobacco Use Types Packs/Day Years Used Date Smoking Tobacco: Never Assessed Comments Unknown Sex and Gender Information Value Date Recorded Sex Assigned at Not on file Legal Sex Female 7:19 PM CDT Gender Identity Not on file Sexual Orientation Not on file documented as of this encounter Plan of Treatment Not on file documented as of this encounter Visit Diagnoses Diagnosis Acute bronchitis documented in this encounter Care Teams Mechanic Industrial Truck Relationship Specialty Start Date End Date Magy Medina NP [address] [place] [address] PCP - General 12/23/16 01/10/24 Magy Medina NP [address] [place] [address] PCP - General 12/05/16 12/22/16 Magy Medina NP [address] [place] [address] PCP - General 11/27/16 12/04/16 Magy Medina NP [address] [place], [place] [address] PCP - General 11/20/16 11/26/16 Magy Medina NP [address] [place], [place] [address] PCP - General 11/15/16 11/19/16 Magy Medina NP [address] [place], [place] [address] PCP - General 10/31/16 11/14/16 Magy Medina NP [address] [place], [place] [address] PCP - General 10/29/16 10/30/16 Magy Medina NP [address] [facility] [address] [place] [address] PCP - General 10/24/16 10/28/16 Magy Medina NP [address] [facility] [address] [place] [address] PCP - General 10/22/16 10/23/16 Derrek George MD PCP - General 10/14/16 documented as of this encounter
--- OUTSIDE RECORDS SUMMARY | 2024-06-05 20:31 | XMS_ITS | Encounter Summary ---
Author Organization [facility] Address [address] [place] [address]. [place] [address] [place] [address] Care Team Providers Care Emergency Generator Mechanic Name Role Phone Magy Medina BITUMINOUS DISTRIBUTOR OPERATOR Primary Care Provider Holthaus, Magy BITUMINOUS DISTRIBUTOR OPERATOR Primary Care Provider [phone] Holthaus, Magy BITUMINOUS DISTRIBUTOR OPERATOR Primary Care Provider Holthaus, Magy BITUMINOUS DISTRIBUTOR OPERATOR Primary Care Provider Holthaus, Magy BITUMINOUS DISTRIBUTOR OPERATOR Primary Care Provider [phone] Holthaus, Magy BITUMINOUS DISTRIBUTOR OPERATOR Primary Care Provider Holthaus, Magy BITUMINOUS DISTRIBUTOR OPERATOR Primary Care Provider Holthaus, Magy BITUMINOUS DISTRIBUTOR OPERATOR Primary Care Provider Holthaus, Magy BITUMINOUS DISTRIBUTOR OPERATOR Primary Care Provider , Generic Conversion Primary Care Provider Unavailable , Generic Conversion Primary Care Provider Unavailable , Generic Conversion Primary Care Provider Unavailable Encounter Details Date Type Department Care Team (Late st Contact Info) Description 09/21/[address] [facility] [address] [place], [place] [id number] Nuvia Rich, CHARGE WEIGHER [address] [facility] [address] [place] [address] Social History Tobacco Use Types Packs/Day Years [...] Procedure Name Priority Date/Time Associated Diagnosis Comments CULTURE STREP A Routine 09/21/2015 4:49 PM CDT RAPID STREP A STAT 09/21/2015 4:49 PM CDT documented in this encounter Results * CULTURE STREP A (09/21/2015 4:49 PM CDT) SPEC DESCRIPTION THROAT 09/21/2015 5:10 PM CDT [facility] SPECIAL REQUESTS NO SPECIAL REQUEST 09/21/2015 5:10 PM CDT [facility] CULTURE RESULT NO STREPTOCOCCUS PYOGENES (GROUP A) ISOLATED 09/23/2015 11:28 AM CDT [facility] THROAT SWAB / Unknown 09/21/2015 4:49 PM CDT 09/21/2015 5:10 PM CDT us Generic Conversion Md [facility]EEK MICROBIOLOGY - GENERAL ORDERABLES Final Result [facility] [address] [place] [address], * RAPID STREP A (09/21/2015 4:49 PM CDT) SPECIMEN TYPE THROAT 09/21/2015 4:49 PM CDT [facility] RAPID STREP TEST NEGATIVE NEGATIVE 09/21/2015 5:08 PM CDT [facility] Comment: TESTING PERFORMED AT [facility] [address] [place] [address] ??[id number] ABHIJEET CAGLE M.D., MGMT SPECIALIST THROAT SWAB / Unknown 09/21/2015 4:49 PM CDT 09/21/2015 4:59 PM CDT us Generic Conversion Md [facility]EEK MICROBIOLOGY - GENERAL ORDERABLES Final Result [facility] [address] [place] [id number], documented in this encounter Visit Diagnoses Diagnosis Acute pharyngitis documented in this encounter Care Teams Emergency Generator Mechanic Relationship Specialty Start Date End Date Magy Medina NP [address] [place] [address] PCP - General 12/23/16 01/10/24 Magy Medina NP [address] [place] [address] PCP - General 12/05/16 12/22/16 Magy Medina NP [address] [place], [place] [address] PCP - General 11/27/16 12/04/16 Magy Medina NP [address] [place], [place] [address] PCP - General 11/20/16 11/26/16 Magy Medina NP [address] [place], [place] [address] PCP - General 11/15/16 11/19/16 Magy Medina NP [address] [place], [place] [address] PCP - General 10/31/16 11/14/16 Magy Medina NP [address] [facility] [address] [place] [address] PCP - General 10/29/16 10/30/16 Magy Medina NP [address] [facility] [address] [place] [address] PCP - General 10/24/16 10/28/16 Magy Medina NP [address] [facility] [address] [place], [place] [address] PCP - General 10/22/16 10/23/16 , Generic Conversion, PCP - General 10/14/16 , Generic Conversion, PCP - General 01/28/16 7 , Generic Conversion, PCP - General 09/21/15 documented as of this encounter
--- OUTSIDE RECORDS SUMMARY | 2024-06-05 20:31 | XMS_ITS | Encounter Summary ---
Author Organization [facility] Address [address] [place] [address]. [place], [place] [address] [place] [address] Care Team Providers Care Utility Specialist Name Role Phone Magy Medina NP Primary Care Provider [phone] Reason for Visit * Reason Comments Initial Evaluation * Physical Therapy (Routine) - Closed Specialty Diagnoses / Procedures Referred By Contac t Referred To Contact PHYSICAL THERAPY [facility] Physical Therapy Diagnoses CHRONIC BACK PAIN/HOLTHAUS/MEDICAID Procedures EVAL 45 MIN Magy Medina NP [address] [place] [phone] Phone: tel: fax: Tatianna Duarte, PT Referral ID Status Reason Start Date Expiration Date Visits Re quested Visits Authorized [id number] Closed 05/30/2020 1 1 Encounter Details Date Type Department Care Team (Late st Contact Info) Description 05/30/2020 10:15 AM LOCKER PLANT ATTENDANT Office Visit [facility] [address] [place] [id number] Magy Medina NP [address] [facility] [address] [place] [address] Tatianna Duarte, PT Initial Evaluation Social History Tobacco Use Types Packs/Day Years [...] have Coronavirus / COVID-19? No / Unsure 05/30/2020 9:56 AM LOCKER PLANT ATTENDANT documented as of this encounter Progress Notes * Tatianna Goyal Jennifer, PT - 05/30/2020 10:15 AM CST Physical Therapy Evaluation Date: 05/30/2020 Patient Name: Jenny Johnson : 1990 Diagnosis: The encounter diagnosis was Chronic bilateral low back pain, unspecified whether sciatica present. AMB PT SUBJECTIVE EVAL: History of Present Illness: Mechanism of injury: Patient reports chronic back pain since she was about 13 years old, but was born with scoliosis. Has tried PT many times and it has never helped. Wants to do her evaluation only because she doesn't want to disappoint her doctor, but states she has had PT so many time since she was 13 years old and it has never helped. PT always makes her feel worse. Chiropractic made her feelworse as well. Has has back and neck injections that also haven't helped. Is feeling really discouraged and frustrated. Does not want PT treatment, but wants to do an evaluation. Pain: Current pain ratin/10 Location: Back and neck Quality: Dull ache, sharp and throbbing Relieving factors: Rest Aggravating factors: Lifting, movement and overhead activity Progression: Unchanged Objective Patient declined BP reading today, states she is going to her PCP tomorrow and they will take it. Posture: increased lumbar lordosis, visible RT rib hump and cervicothoracic scoliosis. Patient shifts off of her LT side with sitting and standing during evaluation . Muscle tension: muscle spasm in suboccipitals, paraspinals, upper trap, and piriformis Spinal AROM: 50% limited in all planes throughout her thoracic spine and lumbar spine into flexion,side bending, and rotation. Lumbar extension is hypermobile due to increase lumbar lordosis, causing a hinge point with movement Sit to stand: decreased LT LE weight bearing with transfer Physical Therapy Certification Form - Spine Treatment Today: Initial Evaluation completed with patient education on evaluation findings and plan of care Neuro Reeducation Patient was educated about different ways to treat back pain: PT, chiropractic, massage, injections, exercise, weight control, and surgery. She was encouraged to talk to her doctor about these tomorrow. Timed Code Tx Minutes 0 Units 0 Total Tx Time 30 eval Low Therapy Diagnosis: Cervicalgia bilateral Low Back Pain Muscle Spasm Back Pain in Thoracic Spine Patient demonstrated Good understanding of above education and HEP. Rehab Potential: N/A Assessment: Patient is a 29 year old female presenting with lifelong back pain associated with scoliosis. Patient has tried PT, chiropractic, and injections many times and has never gained any benefit. She declines any PT treatment at this time because she does not believe it will be helpful to her. Requests to be referred back to her PCP. Assessment Eval Complexity Personal Factor/Co-morbidities: 1-2 (Mod) Chronicity Examination of Body Systems Needing Addressed: 1-2 elements (Low) Muscle Tension, Trunk Deficits Clinical Presentation of Patient: Stable (Low) Stable and uncomplicated - no other factors Clinical Decision Making: Low PLAN: d/c from OPPT Therapist: TATIANNA LUCAS PT, DPT Date: 05/30/20 Time: 10:09 AM Physician Signature: Date: Time: Patient Name: Jenny Bowling October : 1990 ER PLANT ATTENDANT documented in this encounter Plan of Treatment Not on file documented as of this encounter Visit Diagnoses Diagnosis Chronic bilateral low back pain, unspecified whether sciatica present- Primary documented in this encounter Care Teams Utility Specialist Relationship Specialty Start Date End Date Magy Medina NP [address] [facility] [address] [place] [address] PCP - General 12/23/16 01/10/24 documented as of this encounter
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
--- OUTSIDE RECORDS SUMMARY | 2024-06-05 20:31 | XMS_ITS | Encounter Summary ---
Author Organization [facility] Address [address] [place] [address]. [place], [place] [address] [place] [address] Care Team Providers Care Kettle Coordinator Name Role Phone Adam Magy GARIBAY Primary Care Provider [phone] Reason for Visit * Reason Comments Rash Encounter Details Date Type Department Care Team (Latest Contact Info) Description 08/25/2018 4:30 PM CDT - 08/25/2018 4:59 PM CDT Hospital Encounter [facility] [address] [place] [address] Nelson Sparrow PA [address] [place], [place] [id number] Rash Discharge Disposition: Home or Self Care (Routine [...] Sign Reading Time Taken Comments Blood Pressure 126/81 08/25/2018 4:31 PM CDT Pulse 87 08/25/2018 4:31 PM CDT Temperature 36.9 ??C (98.4 ??F) 08/25/2018 4:31 PM CD T Respiratory Rate 20 08/25/2018 4:31 PM CDT Oxygen Saturation 100% 08/25/2018 4:31 PM CDT Inhaled Oxygen Concentration - - Weight 83.9 kg (185 lb) 08/25/2018 4:31 PM CDT Height 157.5 cm (5' 2 ) 08/25/2018 4:31 PM CDT Body Mass Index 33.84 08/25/2018 4:31 PM CDT documented in this encounter Discharge Instructions * Attachments The following attachments cannot be sent through Care Everywhere. * Shingles Discharge Instructions (Malawian) documented in this encounter Medications at Time of Discharge albuterol sulfate HFA 108 (90 BASE) MCG/ACT inhaler Inhale 2 puffs into the lungs every 6 (six) hours as needed for Wheezing. ibuprofen 600 MG tablet Take 1 tablet (600 mg total) by mouth every 8 (eight) hours as needed for Pain. 30 tablet 12/17/2017 acyclovir 800 MG tablet Take 1 tablet (800 mg total) by mouth every 6 (six) hours for 5 days. 20 tablet 08/25/2018 08/30/2018 methocarbamol (ROBAXIN-750) 750 MG Tab Take 1 tablet (750 mg total) by mouth 4 (four) times daily as needed. 20 tablet 12/17/2017 05/22/2023 traMADol 50 MG tablet Take 1 tablet (50 mg total) by mouth every 6 (six) hours as needed. 12 tablet 08/25/2018 09/04/2018 documented as of this encounter ED Notes * Kristin Holden RN - 08/25/2018 4:57 PM CDT PT TO UC WITH C/O RED PAINFUL RASH TO LEFT SECOND MCP JOINT. PT STATED SHE GETS SHINGLES OFTEN SXSTARTED TODAY. * KYREE Shi - 08/25/2018 4:42 PM CDT ED NOTE Chief Complaint Chief Complaint Patient presents with ??? Rash History of Present Illness 27-year-old female presenting to urgent care with complaint of painful rash to left hand times 1 day. Patient states symptoms started around 230 this morning. He does have past history of shingles. Describes rash as burning and painful. No relief with Benadryl. Denies difficulty with range of motion of the finger, fever, chills or drainage. No other complaints at this time. Medical History ALLERGIES: Allergies Allergen Reactions ??? Latex Rash MEDICATIONS: Prior to Admission medications Medication Sig Start Date End Date Taking? Authorizing Provider acyclovir 800 MG tablet Take 1 tablet (800 mg total) by mouth every 6 (six) hours for 5 days. 08/25/18 08/30/18 Yes KYREE Shi traMADol 50 MG tablet Take 1 tablet (50 mg total) by mouth every 6 (six) hours as needed. 08/25/18 09/04/18 Yes KYREE Shi albuterol sulfate HFA 108 (90 BASE) MCG/ACT inhaler Inhale 2 puffs into the lungs every 6 (six) hours as needed for Wheezing. Doc Abstract ibuprofen 600 MG tablet Take 1 tablet (600 mg total) by mouth every 8 (eight) hours as needed for Pain. 12/17/17 ELIDA Greer methocarbamol (ROBAXIN-750) 750 MG Tab Take 1 tablet (750 mg total) by mouth 4 (four) times daily as needed. 12/17/17 ELIDA Greer PAST MEDICAL HISTORY: Past Medical History: Diagnosis Date ??? Asthma ??? Scoliosis PAST SURGICAL HISTORY: Past Surgical History: Procedure Laterality Date ??? DELIVERY ONLY FAMILY HISTORY: Family History Problem Relation Name Age of Onset ??? Diabetes Mother ??? Hypertension Mother ??? Stroke Mother ??? Asthma Mother SOCIAL HISTORY: Social History Tobacco Use ??? Smoking status: Never Smoker ??? Smokeless tobacco: Never Used Substance Use Topics ??? Alcohol use: No ??? Drug use: No Review of Systems Review of Systems Constitutional: Negative for activity change and appetite change. HENT: Negative for congestion, ear discharge, ear pain and sore throat. Respiratory: Negative for cough and shortness of breath. Cardiovascular: Negative for chest pain. Gastrointestinal: Negative for abdominal pain, nausea and vomiting. Musculoskeletal: Negative for back pain and neck pain. Neurological: Negative for dizziness, syncope and light-headedness. Physical Exam Filed Vitals: 08/25/18 1631 BP: 126/81 Pulse: 87 Resp: 20 Temp: 98.4 ??F (36.9 ??C) TempSrc: Temporal SpO2: 100% Weight: 83.9 kg (185 lb) Height: 5' 2 (1.575 m) Physical Exam Constitutional: She is oriented to person, place, and time. She appears well- developed and well-nourished. No distress. HENT: Head: Normocephalic. Nose: Nose normal. Mouth/Throat: Oropharynx is clear and moist. Neck: Normal range of motion. Neck supple. Musculoskeletal: Normal range of motion. She exhibits no tenderness. Left hand: She exhibits normal range of motion, no bony tenderness, normal two- point discrimination, normal capillary refill and no swelling. Normal sensation noted. Normal strength noted. Neurological: She is alert and oriented to person, place, and time. She has normal strength. No sensory deficit. Skin: Skin is warm and dry. Rash noted. Rash is vesicular (Macular appearing rash with tenderness to left second MCP joint). Psychiatric: She has a normal mood and affect. Her behavior is normal. Judgment and thought contentnormal. Nursing note and vitals reviewed. Diagnostic Studies / Procedures ELECTROCARDIOGRAMS: No results found for this visit on 08/25/18. LABORATORY STUDIES: No results found for this visit on 08/25/18. IMAGING STUDIES No orders to display ED Course / Medical Decision Making Rashes resembling shingles in nature. Will start on acyclovir. Patient with no renal compromising diseases. No other complaints at this time. Medications - No data to display Clinical Impression Shingles (Primary) Current Discharge Medication List START taking these medications Details acyclovir 800 MG tablet Take 1 tablet (800 mg total) by mouth every 6 (six) hours for 5 days. Qty: 20 tablet, Refills: 0 Class: Eprescribe Pharmacy: [id number] [address] [facility] [address] (Ph #: [phone]) traMADol 50 MG tablet Take 1 tablet (50 mg total) by mouth every 6 (six) hours as needed. Qty: 12 tablet, Refills: 0 Class: Print Pharmacy: [id number] [place], [place] [address] [facility] [address] (Ph #: [phone]) Disposition: Discharge Follow-Up: Magy Medina NP [address] [facility] [address] [facility] [address] Schedule an appointment as soon as possible for a visit in 1 week As needed KYREE Shi 08/25/2018 KYREE Shi 08/25/18 1646 Cosigned by Javi Farrell MD at 08/26/2018 6:59 AM CDT documented in this encounter Plan of Treatment Not on file documented as of this encounter Visit Diagnoses Diagnosis Shingles- Primary Herpes zoster without mention of complication documented in this encounter Care Teams Kettle Coordinator Relationship Specialty Start Date End Date Magy Medina NP [address] [facility] [address] [place] [address] PCP - General 12/23/16 01/10/24 documented as of this encounter
--- OUTSIDE RECORDS SUMMARY | 2024-06-05 20:31 | XMS_ITS | Encounter Summary ---
Author Organization [facility] Address [address] [place] [address]. [place] [address] [place] [address] Care Team Providers Care Sign Manufacturer Name Role Phone RosaliaMagy martin [place] Primary Care Provider [phone] Encounter Details Date Type Department Care Team (Late st Contact Info) Description 03/13/2017 Abstract [facility] [address] [place], [place] [id number] Tori Vidal MD Three [facility] [address] [place], [place] [id number] Social History Tobacco Use Types Packs/Day Years [...] Procedure Name Priority Date/Time Associated Diagnosis Comments TEST URINE STAT 03/13/2017 8:34 AM CDT documented in this encounter Results * TEST URINE (03/13/2017 8:34 AM CDT) PREG TEST POSITIVE 03/13/2017 8:47 AM CDT [facility] SPECIFIC GRAVITY (U) 1.019 >1.009 03/13/2017 8:47 AM CDT [facility] 03/13/2017 8:34 AM CDT 03/13/2017 8:39 AM CDT us Generic Conversion Md MEEK URINE ORDERABLES Final Result [facility] [place] [address], documented in this encounter Visit Diagnoses Diagnosis Procedure and treatment not carried out because of other contraindication documented in this encounter Care Teams Sign Manufacturer Relationship Specialty Start Date End Date Magy Medina NP [address] [facility] [address] [place] [address] PCP - General 12/23/16 01/10/24 documented as of this encounter
--- OUTSIDE RECORDS SUMMARY | 2024-06-05 20:31 | XMS_ITS | Encounter Summary ---
Author Organization [facility] Address [address] [place] [address]. [place], [place] [address] [place] [address] Care Team Providers Care Industrial Engineering Manager Name Role Phone Magy Medina NP Primary Care Provider [phone] Reason for Visit * Reason Comments Sore Throat Encounter Details Date Type Department Care Team (Late st Contact Info) Description 12/05/2022 8:14 AM CDT - 12/05/2022 8:54 AM CDT Emergency [facility] [place] [address] Kimberly Trejo PA [address], [place] [id number] Sore Throat Discharge Disposition: Home or Self Care (Routine [...] Sign Reading Time Taken Comments Blood Pressure 123/84 12/05/2022 8:12 AM CDT Pulse 97 12/05/2022 8:12 AM CDT Temperature 36.1 ??C (97 ??F) 12/05/2022 8:12 AM CDT Respiratory Rate 18 12/05/2022 8:12 AM CDT Oxygen Saturation 100% 12/05/2022 8:12 AM CDT Inhaled Oxygen Concentration - - Weight 85.6 kg (188 lb 11.4 oz) 12/05/2022 8:12 AM CDT Height 157.5 cm (5' 2 ) 12/05/2022 8:12 AM CDT Body Mass Index 34.52 12/05/2022 8:12 AM CDT documented in this encounter Discharge Instructions * Discharge Instructions* KYREE Alegria - 12/05/2022 8:42 AM CDT 1) Please follow-up with your doctor or the referred doctor if not improving within 48-72 hours or sooner if worsening. 2) Finish full course of antibiotics even if feeling better. 3) Return to Emergency Department for any new or worsening symptoms (includes but not limited to: fever greater than 100.4, worsening of pain after antibiotics, severe voice change, excessive drooling, inabllity to swallow or inability to open jaw). To relieve some throat pain: warm saline gargles, which may reduce associated edema; lozenges; popsicles; and cold and slushy beverages. Thank you for giving us the opportunity to care for you today. If at any point you are becoming more ill, your condition worsens or have concern, please call your doctor or return here. You are always welcome back. If you have any questions about this visit, concerns about your symptoms, questions about your medications or other concerns, please give us a call... Our practice is committed to providing you the exceptional care. We want to hear from you! Please fill out the survey you get from us. Your feedback is anonymous & helps us improve the patient experience for you and others in the community we serve. - Kimberly Trejo PA-C - Emergency Medicine Provider ADDITIONAL DISCHARGE INSTRUCTIONS: --Please follow all the instructions that we have discussed or are provided here. Take all medications as directed. --Emergency Departments (ED) provide medical screening exams [...] care by your primary care physician or senior clinical consultant.Please mention to your follow-up physician that [...] such as many narcotic drug combinations and brlj-cnu-tfoqtjk cold medicines. --Again, it was a pleasure taking care of you. * Attachments The following attachments cannot be sent through Care Everywhere. * Strep Throat Discharge Instructions (Belizean) documented in this encounter Medications at Time [...] as needed for Pain. 30 tablet 12/17/2017 amoxicillin (AMOXIL) 500 MG tablet Take 1 tablet (500 mg total) by mouth 2 (two) times daily for 10 days. for 10 days 20 tablet 12/05/2022 12/15/2022 methocarbamol (ROBAXIN-750) 750 MG Tab Take 1 tablet (750 mg total) by mouth 4 (four) times daily as needed. 20 tablet 12/17/2017 05/22/2023 documented as of this encounter ED Notes * KYREE Alegria - 12/05/2022 8:24 AM CDT ED NOTE Chief Complaint Chief Complaint Patient presents with Sore Throat History of Present Illness 32-year-old female with a history of asthma, COVID, scoliosis presents to the emergency room for evaluation of sore throat that started approximately 2 days ago. Started noticing fever with a Tmax 102, tonsillar inflammation that started yesterday and headache. No relief with wjqv-gtn-itoxiiy medications. Denies any trismus, drooling, chest pain, shortness of breath, abdominal pain, rash, neck stiffness, nausea or vomiting, urinary symptoms, genital complaints, concern for . Does work at [employer] and unsure if she has been around anyone who has been sick. Medical History ALLERGIES: Review of patient's allergies indicates: Allergen Reactions Latex Rash MEDICATIONS: Prior to Admission medications Medication Sig Start Date End Date Taking? Authorizing Provider amoxicillin (AMOXIL) 500 MG tablet Take 1 tablet (500 mg total) by mouth 2 (two) times daily for 10days. for 10 days 12/05/22 12/15/22 Yes KYREE Alegria albuterol sulfate HFA 108 (90 BASE) MCG/ACT [...] needed for Pain. 12/17/17 Federica Faith NP methocarbamol (ROBAXIN-750) 750 MG Tab Take 1 tablet (750 mg total) by mouth 4 (four) times daily as needed. 12/17/17 Federica Faith NP PAST MEDICAL HISTORY: Past Medical History: Diagnosis [...] Review of Systems Review of Systems Constitutional: Positive for fever. Negative for chills. HENT: Positive for congestion, postnasal drip, rhinorrhea and sore throat. Negative for ear pain and sinus pain. Eyes: Negative for pain and visual disturbance. Respiratory: Negative for cough and shortness of breath. Cardiovascular: Negative for chest pain and palpitations. Gastrointestinal: Negative for abdominal pain, diarrhea, nausea and vomiting. Genitourinary: Negative for dysuria, hematuria and urgency. Musculoskeletal: Negative for back pain and neck pain. Skin: Negative for rash and wound. Allergic/Immunologic: Negative for food allergies. Neurological: Positive for headaches. Negative for dizziness, tremors, seizures and numbness. Psychiatric/Behavioral: Negative. Physical Exam Filed Vitals: 12/05/22 0812 BP: 123/84 Pulse: 97 Resp: 18 Temp: 97 ??F (36.1 ??C) TempSrc: Temporal SpO2: 100% Weight: 85.6 kg (188 lb 11.4 oz) Height: 5' 2 (1.575 m) Physical Exam Vitals and nursing note reviewed. Constitutional: Appearance: Normal appearance. She is well-developed. Comments: Nontoxic appearing HENT: Head: Normocephalic and atraumatic. Right Ear: Tympanic membrane, ear canal and external ear normal. Left Ear: Tympanic membrane, ear canal and external ear normal. Nose: Nose normal. Mouth/Throat: Mouth: Mucous membranes are moist. Comments: + tonsillar exudate, 2+ bilateral tonsillar edema with erythema. Uvula midline. No asymmetry or deviation. No trismus, drooling, soft palate swelling, oral floor elevation or neck induration/overlying cellulitis. No hot potato voice. Eyes: Conjunctiva/sclera: Conjunctivae normal. Cardiovascular: Rate and Rhythm: Normal rate and regular rhythm. Pulses: Normal pulses. Heart sounds: Normal heart sounds. Pulmonary: Effort: Pulmonary effort is normal. No respiratory distress. Breath sounds: Normal breath sounds. No stridor. No wheezing, rhonchi or rales. Abdominal: General: Bowel sounds are normal. There is no distension. Palpations: Abdomen is soft. Tenderness: There is no abdominal tenderness. Musculoskeletal: General: Normal range of motion. Cervical back: Normal range of motion and neck supple. No rigidity. Right lower leg: No edema. Left lower leg: No edema. Lymphadenopathy: Cervical: No cervical adenopathy. Skin: General: Skin is warm and dry. Capillary Refill: Capillary refill takes less than 2 seconds. Findings: No rash. Neurological: General: No focal deficit present. Mental Status: She is alert and oriented to person, place, and time. Psychiatric: Mood and Affect: Mood normal. Behavior: Behavior normal. Diagnostic Studies / Procedures ELECTROCARDIOGRAMS: No results found for this visit on 12/05/22. LABORATORY STUDIES: Results for orders placed or performed during the hospital encounter of 12/05/22 RAPID STREP A Specimen: THROAT Result Value Ref Range Specimen Type THROAT RAPID STREP TEST POSITIVE (A) NEGATIVE IMAGING STUDIES No orders to display ED Course / Medical Decision Making MDM Amount and/or Complexity of Data Reviewed Clinical lab tests: reviewed and ordered ED Course as of 12/05/22 0850 Felicita Dec 05, 2022 0842 RAPID STREP TEST(!): POSITIVE Nontoxic-appearing patient presents for sore throat. Exam as noted above. Strep positive. No signs of peritonsillar or retropharyngeal abscess. No excessive drooling/tripoding to suggest uvulitis,epiglottis or nacho angina. Able to tolerate PO. Plan for abx, discussed conservative measures at thistime and follow-up with PCP for further evaluation. Strict verbal return precautions reviewed. Patient expresses verbal understanding and agreement with plan. All questions answered to the best of my ability. Teachback performed by patient. Nontoxic exit exam. Patient discharged home in stable condition. [AD] ED Course User Index [AD] KYREE Alegria Medications ketorolac (TORADOL) injection 30 mg (30 mg Intramuscular Given 12/05/22 0849) dexamethasone PF (DECADRON) injection 10 mg (10 mg Intramuscular Given 12/05/22 0849) Clinical Impression Strep pharyngitis (Primary) Current Discharge Medication List START taking these medications Details amoxicillin (AMOXIL) 500 MG tablet Take 1 tablet (500 mg total) by mouth 2 (two) times daily for 10days. for 10 days Qty: 20 tablet, Refills: 0 Class: Print Disposition: Discharge Follow-Up: Magy Medina, JOINTER MACHINE OPERATOR [address] [facility] [address] [place] [address] KYREE ALEGRIA 12/05/2022 KYREE Alegria 12/05/22 0850 Cosigned by Stanislaw Durbin MD at 12/05/2022 2:28 PM CDT * Arcelia Call RN - 12/05/2022 8:13 AM CDT Pt. Walk-in to E.D with C/O sore, throat, tonsil inflammation, intermittent fever highest 102 at home yesterday, Pt. Reports taking OTC meds with no relief. 0 s/s distress noted, respirations even and unlabored. documented in this encounter Plan of Treatment Not on file documented as of this encounter Procedures Procedure Name Priority Date/Time Associated Diagnosis Comments RAPID STREP A STAT 12/05/2022 8:15 AM CDT documented in this encounter Results * (ABNORMAL) RAPID STREP A (12/05/2022 8:15 AM CDT) SPECIMEN TYPE THROAT 12/05/2022 8:17 AM CDT [facility] RAPID STREP TEST POSITIVE(A) NEGATIVE 12/05/2022 8:38 AM CDT [facility] STRUCTURE OF ANTERIOR PORTION OF NECK / Unknown 12/05/2022 8:15 AM CDT Kimberly ADORNO MICROBIOLOGY - GENERAL ORDERA BLES Final Result [facility] [address] [place] [address], documented in this encounter Visit Diagnoses Diagnosis Strep pharyngitis- Primary Streptococcal sore throat documented in this encounter Administered Medications Inactive Administered Medications - up to 3 most recent administrations Medication Order MAR Action Action Date Dose Rate Site dexamethasone PF (DECADRON) injection 10 mg 10 mg, Intramuscular, Once, 1 dose, On Felicita 12/05/22 at 0830, Administer slowly over 1-4 minutes. Given 12/05/2022 8:49 AM CDT 10 mg Left Deltoid ketorolac (TORADOL) injection 30 mg 30 mg, Intramuscular, Once, 1 dose, On Felicita 12/05/22 at 0830, For IV administration, give over 15 seconds. Given 12/05/2022 8:49 AM CDT 30 mg Left Deltoid documented in this encounter Active and Recently Administered Medications Times are shown in CDT. Scheduled Medication Order 12/03/2022 12/04/2022 12/05/2022 dexamethasone PF (DECADRON) injection 10 mg (COMPLETED) 10 mg, Intramuscular, Once, 1 dose, On Felicita 12/05/22 at 0830, Administer slowly over 1-4 minutes. 0849 (Given - Provid er: Kacie Mccloud RN) ketorolac (TORADOL) injection 30 mg (COMPLETED) 30 mg, Intramuscular, Once, 1 dose, On Felicita 12/05/22 at 0830, For IV administration, give over 15 seconds. 0849 (Given - Provid er: Kacie Mccloud RN) documented in this encounter Care Teams Industrial Engineering Manager Relationship Specialty Start Date End Date Magy Medina NP [address] [facility] [address] [place] [address] PCP - General 12/23/16 01/10/24 documented as of this encounter
--- OUTSIDE RECORDS SUMMARY | 2024-06-05 20:31 | XMS_ITS | Encounter Summary ---
Author Organization [facility] Address [address] [place] [address]. [place], [place] [address] [place] [address] Care Team Providers Care E Commerce Project Manager Name Role Phone Magy Medina NP Primary Care Provider [phone] Reason for Visit * Reason Comments Confirmed Coronavirus (Covid-19) Shortness Of Breath Dizziness Encounter Details Date Type Department Care Team ([facility] st Contact Info) Description 01/06/2021 4:42 AM CDT - 01/06/2021 5:27 AM CDT Emergency [facility] [place] [address] Shawn Kiran MD [address] [place] [address] Confirmed Coronavirus (Covid-19); Shortness Of Breath ; Dizziness Discharge Disposition: Home or Self Care with Planned Inpatient Readmission Social History Tobacco Use Types Packs/Day Years [...] or suspected to have Coronavirus / COVID-19? Yes 01/06/2021 3:16 AM CDT documented as of this encounter Last Filed Vital Signs Vital Sign Reading Time Taken Comments Blood Pressure 117/65 01/06/2021 3:17 AM CDT Pulse 69 01/06/2021 3:17 AM CDT Temperature 36.7 ??C (98 ??F) 01/06/2021 3:17 AM CDT Respiratory Rate 20 01/06/2021 3:17 AM CDT Oxygen Saturation 97% 01/06/2021 3:17 AM CDT Inhaled Oxygen Concentration - - Weight 79.8 kg (175 lb 14.8 oz) 01/06/2021 3:17 AM CDT Height 157.5 cm (5' 2 ) 01/06/2021 3:17 AM CDT Body Mass Index 32.18 01/06/2021 3:17 AM CDT documented in this encounter Discharge Instructions * Discharge Instructions* Shawn Kiran MD - 01/06/2021 5:01 AM CDT Continue all present medication as prescribed. Take Tessalon Perles as prescribed. May also take [id number] dextromethorphan and guaifenesin per package instructions. Take epba-pkt-jautjce Tylenol per package instructions for fever and pain. Fluids. Follow-up with your primary care provider Magy Medina in the next 3 to 5 days. Return to emergency department for any problems concerns. You do have COVID-19. You should quarantine/isolate yourself for 14 days from the date of diagnosis December 29, 2020. * Attachments The following attachments cannot be sent through Care Everywhere. * Coronavirus Disease 2019 (COVID-19) Discharge Instructions (Bhutanese) * Preventing the Spread of an Infectious Disease (Bhutanese) * Tips to Help You Brenton in Uncertain Times (Bhutanese) documented in this encounter Medications at Time of Discharge albuterol sulfate HFA 108 (90 BASE) MCG/ACT inhaler Inhale 2 puffs into the lungs every 6 (six) hours as needed for Wheezing. ibuprofen 600 MG tablet Take 1 tablet (600 mg total) by mouth every 8 (eight) hours as needed for Pain. 30 tablet 12/17/2017 albuterol sulfate HFA 108 (90 Base) MCG/ACT inhaler Inhale 2 puffs into the lungs every 6 (six) hours as needed for Wheezing. 30 g 12/29/2020 01/26/2021 benzonatate (TESSALON PERLES) 100 MG capsule Take 1 capsule (100 mg total) by mouth 3 (three) times daily as needed for Cough. 20 capsule 01/06/2021 01/13/2021 methocarbamol (ROBAXIN-750) 750 MG Tab Take 1 tablet (750 mg total) by mouth 4 (four) times daily as needed. 20 tablet 12/17/2017 05/22/2023 documented as of this encounter ED Notes * Shawn Kiran MD - 01/06/2021 4:57 AM CDT [facility] Emergency Department Note Chief Complaint Chief Complaint Patient presents with ??? Confirmed Coronavirus (Covid-19) ??? Shortness Of Breath ??? Dizziness History of Present Illness 30-year-old black female presents to emergency department complaining of shortness of breath and cough. Patient states she was diagnosed with Covid December 29, 2020. States she also has dizzy spells. Slight nausea but no vomiting diarrhea constipation. No dysuria increased frequency urination. No fevers or chills. Patient's primary provider is Magy Medina. Patient has no known drug allergies. Medications include albuterol inhaler vitamin D. Previous surgery includes section and back surgery. Patient does not smoke does not drink alcohol is not do drugs. Patient is single. Patient isunemployed. Family history of hypertension diabetes heart disease Medical History ALLERGIES: Allergies Allergen Reactions ??? Latex Rash MEDICATIONS: Prior to Admission medications Medication Sig Start Date End Date Taking? Authorizing Provider benzonatate (TESSALON PERLES) 100 MG capsule Take 1 capsule (100 mg total) by mouth 3 (three) timesdaily as needed for Cough. 01/06/21 01/13/21 Yes Shawn Kiran MD albuterol sulfate HFA 108 (90 BASE) MCG/ACT inhaler Inhale 2 puffs into the lungs every 6 (six) hours as needed for Wheezing. Doc Abstract albuterol sulfate HFA 108 (90 Base) MCG/ACT inhaler Inhale 2 puffs into the lungs every 6 (six) hours as needed for Wheezing. 12/29/20 01/26/21 Katerina Duncan MD ibuprofen 600 MG tablet Take 1 tablet (600 mg total) by mouth every 8 (eight) hours as needed for Pain. 12/17/17 Federica Faith NP methocarbamol (ROBAXIN-750) 750 MG Tab Take 1 tablet (750 mg total) by mouth 4 (four) times daily as needed. 12/17/17 Federica Faith NP PAST MEDICAL HISTORY: Past Medical History: Diagnosis Date ??? Asthma ??? COVID-19 ??? Scoliosis PAST SURGICAL HISTORY: [...] Systems Constitutional: Negative for chills and fever. Generalized malaise HENT: Negative for congestion, rhinorrhea and sore throat. Eyes: Negative for photophobia. Respiratory: Positive for cough and shortness of breath. Negative for wheezing. Cardiovascular: Negative for chest pain, palpitations and leg swelling. Gastrointestinal: Negative for abdominal pain, constipation, diarrhea, nausea and vomiting. Endocrine: Negative for polydipsia and polyuria. Genitourinary: Negative for dysuria and frequency. Musculoskeletal: Negative for back pain, neck pain and neck stiffness. Skin: Negative for pallor and rash. Allergic/Immunologic: Negative for immunocompromised state. Neurological: Negative for syncope, light-headedness, numbness and headaches. Hematological: Does not bruise/bleed easily. Psychiatric/Behavioral: Negative for suicidal ideas. Physical Exam Filed Vitals: 01/06/21 0317 BP: 117/65 Pulse: 69 Resp: 20 Temp: 98 ??F (36.7 ??C) TempSrc: Temporal SpO2: 97% Weight: 79.8 kg (175 lb 14.8 oz) Height: 5' 2 (1.575 m) Physical Exam Constitutional: She is oriented to person, place, and time. She appears well- developed and well-nourished. No distress. HENT: Head: Normocephalic and atraumatic. Right Ear: External ear normal. Left Ear: External ear normal. Eyes: Pupils are equal, round, and reactive to light. Conjunctivae and EOM are normal. No scleral icterus. Neck: No JVD present. Cardiovascular: Normal rate, regular rhythm, normal heart sounds and intact distal pulses. Exam reveals no gallop and no friction rub. No murmur heard. Pulmonary/Chest: Effort normal and breath sounds normal. No stridor. No respiratory distress. She has no wheezes. She has no rales. She exhibits no tenderness. Abdominal: Soft. Bowel sounds are normal. She exhibits no distension and no mass. There is no abdominal tenderness. There is no rebound and no guarding. Musculoskeletal: General: No deformity or edema. Normal range of motion. Cervical back: Normal range of motion and neck supple. Neurological: She is alert and oriented to person, place, and time. Skin: Skin is warm and dry. No rash noted. Psychiatric: She has a normal mood and affect. Her behavior is normal. Judgment and thought contentnormal. Nursing note and vitals reviewed. Diagnostic Studies / Procedures ELECTROCARDIOGRAMS: No results found for this visit on 01/06/21. LABORATORY STUDIES: No results found for this visit on 01/06/21. IMAGING STUDIES No orders to display ED Course / Medical Decision Making MDM Number of Diagnoses or Management Options Diagnosis management comments: Differential diagnosis: Covid ED Course as of Jan 06 0501 Sat Jan 06, 2021 0459 Patient's vital signs are stable. Oxygenation saturation 97% on room air [CA] ED Course User Index [CA] Shawn Kiran MD Medications - No data to display Clinical Impression COVID-19 virus infection (Primary) Current Discharge Medication List START taking these medications Details benzonatate (TESSALON PERLES) 100 MG capsule Take 1 capsule (100 mg total) by mouth 3 (three) timesdaily as needed for Cough. Qty: 20 capsule, Refills: 0 Class: Eprescribe Pharmacy: [facility]/pharmacy #[id number] - [place] - [address] [facility] [address] ( #: [phone]) Disposition: Discharge Voice recognition software used. Follow-Up: Magy Medina NP [address] [facility] [address] [facility] [address] In 3 days Shawn Kiran MD 01/06/2021 Shawn Kiran MD 01/06/21 0502 * Do Garcia RN - 01/06/2021 3:20 AM CDT Pt presents to the ER with c/o SOB and dizziness, dx with COVID on 12/29. documented in this encounter Plan of Treatment Not on file documented as of this encounter Visit Diagnoses Diagnosis COVID-19 virus infection- Primary documented in this encounter Care Teams E Commerce Project Manager Relationship Specialty Start Date End Date Magy Medina NP 3 [facility] [address] [place] [address] PCP - General 12/23/16 01/10/24 documented as of this encounter
--- OUTSIDE RECORDS SUMMARY | 2024-06-05 20:31 | XMS_ITS | Encounter Summary ---
Author Organization [facility] Address [address] [place] [address]. [place], [place] [address] [place] [address] Care Team Providers Care Business Dean Name Role Phone Magy Medina RN HYPERBARIC Primary Care Provider [phone] Holthaus, Magy RN HYPERBARIC Primary Care Provider [phone] Holthaus, Magy RN HYPERBARIC Primary Care Provider [phone] Holthaus, Magy RN HYPERBARIC Primary Care Provider [phone] Holthaus, Magy RN HYPERBARIC Primary Care Provider [phone] Holthaus, Magy RN HYPERBARIC Primary Care Provider [phone] Holthaus, Magy RN HYPERBARIC Primary Care Provider [phone] Holthaus, Magy RN HYPERBARIC Primary Care Provider [phone] Holthaus, Magy RN HYPERBARIC Primary Care Provider [phone] Md Generic Conversion Primary Care Provider Unavailable Md Generic Conversion Primary Care Provider Unavailable Md Generic Conversion Primary Care Provider Unavailable Sondra Marley MD Primary Care Provider [phone] Sondra Marley MD Primary Care Provider [phone] Encounter Details Date Type Department Care Team (Late st Contact Info) Description 12/14/2008 Emergency [facility] [place] [address] Esteban Poole MD Social History Tobacco Use Types Packs/Day [...] on filedocumented in this encounter Care Teams Business Dean Relationship Specialty Start Date End Date Magy Medina NP [address] [place] [address] PCP - General 12/23/16 01/10/24 Magy Medina NP [address] [place], [place] [address] PCP - General 12/05/16 12/22/16 Magy Medina NP [address] [place], [place] [address] PCP - General 11/27/16 12/04/16 Magy Medina NP [address] [place], [place] [address] PCP - General 11/20/16 11/26/16 Magy Medina NP [address] [place], [place] [address] PCP - General 11/15/16 11/19/16 Mgay Medina NP [address] [place], [place] [address] PCP - General 10/31/16 11/14/16 Magy Medina NP [address] [place] [address] PCP - General 10/29/16 10/30/16 Magy Medina NP 3 [facility] [address] [place] [address] PCP - General 10/24/16 10/28/16 Magy Medina NP [address] [facility] [address] [place] [address] PCP - General 10/22/16 10/23/16 , Generic Conversion, PCP - General 10/14/16 Md, Generic Conversion, PCP - General 01/28/16 Md, Generic Conversion, PCP - General 09/21/15 Sondra Marley MD [address] [place] [address] PCP - General 09/05/12 09/20/15 Sondra Marley MD [address] [place] [address] PCP - General 02/14/11 09/04/12 documented as of this encounter
--- OUTSIDE RECORDS SUMMARY | 2024-06-05 20:31 | XMS_ITS | Encounter Summary ---
Author Organization [facility] Address [address] [place] [address]. [place], [place] [address] [place] [address] Care Team Providers Care Food Trades Assistants Name Role Phone Magy Medina MECHANICAL ARTIST Primary Care Provider [phone] Encounter Details Date Type Department Care Team (Latest Contact Info) Description 01/06/2021 Travel Social History Tobacco Use Types Packs/Day [...] on filedocumented in this encounter Care Teams Food Trades Assistants Relationship Specialty Start Date End Date Magy Medina NP 3 [facility] [place] [facility] [address] [place] [address] PCP - General 12/23/16 01/10/24 documented as of this encounter
--- OUTSIDE RECORDS SUMMARY | 2024-06-05 20:31 | XMS_ITS | Encounter Summary ---
Author Organization [facility] Address [address] [place] [address]. [place] [address] [place] [address] Care Team Providers Care Shell Coremaker Name Role Phone Magy Medina IMPORT EXPORT CLERK Primary Care Provider [phone] Holthaus, Magy IMPORT EXPORT CLERK Primary Care Provider [phone] Holthaus, Magy IMPORT EXPORT CLERK Primary Care Provider [phone] Holthaus, Magy IMPORT EXPORT CLERK Primary Care Provider Holthaus, Magy IMPORT EXPORT CLERK Primary Care Provider [phone] Holthaus, Magy IMPORT EXPORT CLERK Primary Care Provider Holthaus, Magy IMPORT EXPORT CLERK Primary Care Provider Holthaus, Magy IMPORT EXPORT CLERK Primary Care Provider Holthaus, Magy IMPORT EXPORT CLERK Primary Care Provider , Generic Conversion Primary Care Provider Unavailable Md Generic Conversion Primary Care Provider Unavailable Md Generic Conversion Primary Care Provider Unavailable Sondra Marley MD Primary Care Provider [phone] Encounter Details Date Type Department Care Team (Late st Contact Info) Description 09/05/[address] [facility] [address] [facility] [place], [place] [id number] Sondra Vázquez MD [address] [facility] [address] [place], [place] [address] Social History Tobacco Use Types Packs/Day Years Used Date Smoking Tobacco: Never Assessed Comments Unknown Sex and Gender Information Value Date Recorded Sex Assigned at Not on file Legal Sex Female 7:19 PM CDT Gender Identity Not on file Sexual Orientation Not on file documented as of this encounter Plan of Treatment Not on file documented as of this encounter Visit Diagnoses Diagnosis Other and unspecified noninfectious gastroenteritis and colitis(558.9) Other and unspecified noninfectious gastroenteritis and colitis documented in this encounter Care Teams Shell Coremaker Relationship Specialty Start Date End Date Magy Medina NP [address] [place] [address] PCP - General 12/23/16 01/10/24 Magy Medina NP [address] [place] [address] PCP - General 12/05/16 12/22/16 Magy Medina NP [address] [place], [place] [address] PCP - General 11/27/16 12/04/16 Magy Medina NP [address] [place], [place] [address] PCP - General 11/20/16 11/26/16 Magy Medina NP [address] [place], [place] [address] PCP - General 11/15/16 11/19/16 Magy Medina NP [address] [place], [place] [address] PCP - General 10/31/16 11/14/16 Magy Medina NP 3 [facility] [address] [place] [address] PCP - General 10/29/16 10/30/16 Magy Medina NP 3 [facility] [address] [place] [address] PCP - General 10/24/16 10/28/16 Magy Medina NP 3 [facility] [address] [place] [address] PCP - General 10/22/16 10/23/16 , Generic Conversion, PCP - General 10/14/16 , Generic Conversion, PCP - General 01/28/16 7 , Generic Conversion, PCP - General 09/21/15 Sondra Marley MD [address] [place] [address] PCP - General 09/05/12 09/20/15 documented as of this encounter
--- OUTSIDE RECORDS SUMMARY | 2024-06-05 20:31 | XMS_ITS | Encounter Summary ---
Author Organization [facility] Address [address] [place] [address]. [place], [place] [address] [place] [address] Care Team Providers Care Bi Tester Name Role Phone Magy Medina NEURODIAGNOSTIC TECHNICIAN Primary Care Provider [phone] Holthaus, Magy NEURODIAGNOSTIC TECHNICIAN Primary Care Provider [phone] Holthaus, Magy NEURODIAGNOSTIC TECHNICIAN Primary Care Provider [phone] Holthaus, Magy NEURODIAGNOSTIC TECHNICIAN Primary Care Provider [phone] Holthaus, Magy NEURODIAGNOSTIC TECHNICIAN Primary Care Provider [phone] Holthaus, Magy NEURODIAGNOSTIC TECHNICIAN Primary Care Provider [phone] Holthaus, Magy NEURODIAGNOSTIC TECHNICIAN Primary Care Provider [phone] Holthaus, Magy NEURODIAGNOSTIC TECHNICIAN Primary Care Provider [phone] Holthaus, Magy NEURODIAGNOSTIC TECHNICIAN Primary Care Provider [phone] Md Generic Conversion Primary Care Provider Unavailable Md Generic Conversion Primary Care Provider Unavailable Md Generic Conversion Primary Care Provider Unavailable Sondra Marley MD Primary Care Provider [phone] Sondra Marley MD Primary Care Provider [phone] Encounter Details Date Type Department Care Team (Late st Contact Info) Description 07/21/[address] [facility] [address] [place], [place] [id number] Mykel Neely MD Social History Tobacco Use Types Packs/Day [...] on filedocumented in this encounter Care Teams Bi Tester Relationship Specialty Start Date End Date Magy Medina NP [address] [place] [address] PCP - General 12/23/16 01/10/24 Magy Medina NP [address] [place], [place] [address] PCP - General 12/05/16 12/22/16 Magy Medina NP [address] [place], [place] [address] PCP - General 11/27/16 12/04/16 Magy Medina NP [address] [place], [place] [address] PCP - General 11/20/16 11/26/16 Magy Medina NP [address] [place], [place] [address] PCP - General 11/15/16 11/19/16 Magy Medina NP [address] [place], [place] [address] PCP - General 10/31/16 11/14/16 Magy Medina NP [address] [place] [address] PCP - General 10/29/16 10/30/16 Magy Medina NP 3 [facility] [address] [place] [address] PCP - General 10/24/16 10/28/16 Magy Medina NP 3 [facility] [address] [place] [address] PCP - General 10/22/16 10/23/16 , Generic Conversion, PCP - General 10/14/16 , Generic Conversion, PCP - General 01/28/16 Md, Generic Conversion, PCP - General 09/21/15 Sondra Marley MD [address] [place] [address] PCP - General 09/05/12 09/20/15 Sondra Marley MD [address] [place] [address] PCP - General 02/14/11 09/04/12 documented as of this encounter
--- OUTSIDE RECORDS SUMMARY | 2024-06-05 20:31 | XMS_ITS | Encounter Summary ---
Author Organization [facility] Address [address] [place] [address]. [place], [place] [address] [place] [address] Care Team Providers Care Anesthesiology Medical Doctor Name Role Phone Magy Medina NP Primary Care Provider [phone] Encounter Details Date Type Department Care Team (Latest Contact Info) Description 05/22/2023 Travel Social History Tobacco Use Types Packs/Day [...] on filedocumented in this encounter Care Teams Anesthesiology Medical Doctor Relationship Specialty Start Date End Date Magy Medina NP 3 [facility] [address] [place] [address] PCP - General 12/23/16 01/10/24 documented as of this encounter
--- OUTSIDE RECORDS SUMMARY | 2024-06-05 20:31 | XMS_ITS | Encounter Summary ---
Author Organization [facility] Address [address] [place] [address]. [place], [place] [address] [place] [address] Care Team Providers Care Butcherette Name Role Phone Kristopher Askew MD Primary Care Provider [phone] Encounter Details Date Type Department Care Team (Latest Contact Info) Description 01/11/2024 Travel Social History Tobacco Use Types Packs/Day [...] on filedocumented in this encounter Care Teams Butcherette Relationship Specialty Start Date End Date Kristopher Askew MD [address] [place] [address] PCP - General FAMILY PRACTICE 01/11/24 documented as of this encounter
--- OUTSIDE RECORDS SUMMARY | 2024-06-05 20:31 | XMS_ITS | Encounter Summary ---
Author Organization [facility] Address [address] [place] [address]. [place], [place] [address] [place] [address] Care Team Providers Care Tattoo Identifier Name Role Phone Magy Medina STEAM SETTER Primary Care Provider [phone] Encounter Details Date Type Department Care Team (Latest Contact Info) Description 05/30/2020 Travel Social History Tobacco Use Types Packs/Day [...] COVID-19? No / Unsure 05/30/2020 9:56 AM DIRECTOR OF CLINICAL EDUCATION documented as of this encounter Plan of Treatment Not on file documented as of this encounter Visit Diagnoses Not on filedocumented in this encounter Care Teams Tattoo Identifier Relationship Specialty Start Date End Date Magy Medina NP [address] [facility] [address] [place] [address] PCP - General 12/23/16 01/10/24 documented as of this encounter
--- OUTSIDE RECORDS SUMMARY | 2024-06-05 20:31 | XMS_ITS | Encounter Summary ---
Author Organization [facility] Address [address] [place] [address]. [place] [address] [place] [address] Care Team Providers Care Program Management Professional Name Role Phone aMgy Medina DRAPERY HEMMER AUTOMATIC Primary Care Provider [phone] Magy Medina DRAPERY HEMMER AUTOMATIC Primary Care Provider [phone] Magy Medina DRAPERY HEMMER AUTOMATIC Primary Care Provider [phone] Encounter Details Date Type Department Care Team (Late st Contact Info) Description 11/27/2016 Abstract [facility] [address] [place] [address] Magy Medina NP 3 [facility] [address] [place], [place] [id number] Social History Tobacco Use Types Packs/Day Years Used Date Smoking Tobacco: Never Assessed Comments Unknown Sex and Gender Information Value Date Recorded Sex Assigned at Not on file Legal Sex Female 7:19 PM CDT Gender Identity Not on file Sexual Orientation Not on file documented as of this encounter Plan of Treatment Not on file documented as of this encounter Visit Diagnoses Diagnosis Low back pain Lumbago documented in this encounter Care Teams Program Management Professional Relationship Specialty Start Date End Date Magy Medina NP [address] [facility] [address] [place] [address] PCP - General 12/23/16 01/10/24 Magy Medina NP [address] [facility] [address] [place] [address] PCP - General 12/05/16 12/22/16 Magy Medina NP 3 [facility] [address] [place] [address] PCP - General 11/27/16 12/04/16 documented as of this encounter
--- OUTSIDE RECORDS SUMMARY | 2024-06-05 20:31 | XMS_ITS | Encounter Summary ---
Author Organization [facility] Address [address] [place] [address]. [place] [address] [place] [address] Care Team Providers Care Tinware Lithograph Press Operator Name Role Phone Magy Medina NP Primary Care Provider [phone] Reason for Referral * Surgical (Routine) - Closed Specialty Diagnoses / Procedures Referred By Contac t Referred To Contact Procedures Case request operating room: INJECTION EPIDURAL LUMBAR INTERLAMINAR L4-5 Wilfrido Vidal MD [address] [place] [address] Phone: tel: fax: Referral ID Status Reason Start Date Expiration Date Visits Re quested Visits Authorized [id number] Closed 06/16/2017 07/17/2018 1 1 TRUCK DRIVER Reason for Visit * Auth/Cert Specialty Diagnoses / Procedures Referred By Contac t Referred To Contact Diagnoses Lumbar radiculopathy [M54.16] Procedures INJECTION EPIDURAL LUMBAR INTERLAMINAR Referral ID Status Reason Start Date Expiration Date Visits Re quested Visits Authorized [id number] 1 1 Encounter Details Date Type Department Care Team (Latest Contact Info) Description 06/16/2017 9:33 AM MILK TRUCK DRIVER - 06/16/2017 11:34 AM MILK TRUCK DRIVER Hospital Encounter [facility] [place] [address] [id number] Wilfrido Vidal MD [facility] [address] [facility] [place], [place] [address] (work) Discharge Disposition: Home or Self Care (Routine [...] Sign Reading Time Taken Comments Blood Pressure 126/75 06/16/2017 11:22 AM MILK TRUCK DRIVER Pulse 79 06/16/2017 11:22 AM MILK TRUCK DRIVER Temperature - - Respiratory Rate 20 06/16/2017 11:2 2 AM MILK TRUCK DRIVER Oxygen Saturation 100% 06/16/2017 11: 22 AM MILK TRUCK DRIVER Inhaled Oxygen Concentration - - Weight 79.7 kg (175 lb 11.3 oz) 018 11:22 AM MILK TRUCK DRIVER Height 152.4 cm (5') 06/16/2017 11:22 AM MILK TRUCK DRIVER Body Mass Index 34.32 06/16/2017 11:22 AM MILK TRUCK DRIVER documented in this encounter Discharge Instructions * Discharge Instructions* Silvana Bourne RN - 06/16/2017 11:31 AM MILK TRUCK DRIVER [place] Inter[facility] Management Discharge Instructions You are scheduled for 2nd lumbar Epidural injection . On Friday, Jul 14 . Please arrive in Outpatient [facility]ist[facility] at 0915 . Please do not eat or drink anything for 4 hours prior to your appointment. Please have someone with you to drive you home. Please shower prior to procedure to help prevent infection. You may take all your medications as prescribed with sips of water. WHAT TO DO TODAY: - Limit your activity today, but bedrest is not required - You may resume your normal activity tomorrow as tolerated - Do not drive a vehicle, operate hazardous equipment, make any complex decisions or sign any legaldocuments for the first 24 hours after your procedure. - You may experience numbness, tingling, and weakness in your extremities for several hours after your injection. Please be careful when walking or standing so you do not fall. - You may remove your bandage in the morning and you may shower. WHAT TO EXPECT OVER THE NEXT FEW DAYS TO A WEEK: - Any weakness or tingling typically wears off after several hours but you may have some tingling for several days after some injections - It is normal that once the numbing medicine wears off that you could be sore for several days before you notice relief. Pain should get better day by day. - The steroid will start working after 2-3 days and can take up to 2 weeks for it to fully work. - Everyone has different response to the injection depending on the amount of inflammation and diagnosis. HOW TO CONTROL YOUR PAIN: - Injection site soreness is normal and will subside in a few days. We suggest ice packs to the injection site for 10-20 at a time ever 2-3 hours. After 24 hours you may use heat if preferred or you may alternate heat and ice. - Your pain may be worse for a couple of days; you may use any medications that you were using before your visit. You may also use Tylenol, Motrin or Aleve if not contraindicated by your Primary CarePhysician. If you no longer have any prescribed medicine, please get your refill from the physicianwho fist prescribed it for you. - For patients who had a Radiofrequency Ablation your pain could last for up to 2 weeks. - We are an Interventional pain management. We do not prescribe pain medicine. COMMON SIDE EFFECTS OF STEROIDS: - You may experience warm, flushing sensation with redness in your face, neck and chest. - You may feel anxious, jittery, irritable or have trouble sleeping. - You may have increased hunger or menstrual changes (for women). - If you are a diabetic you may have increased blood sugars. If you do and are unable to control please call your doctor who manages your diabetes. - All side effects are temporary and should subside in approximately a week. WHEN TO CALL THE DOCTOR AND HOW TO REACH US: Call [phone] ext. [phone] for scheduling, insurance questions or speak with a nurse. Our hours are Friday- 8:00am-4:00pm ??? Call the number above for any bleeding/drainage/redness/swelling at the injection site, severe pain, persistent chills, fever over 101 or greater, or new or different pain or numbness. If you areunable to reach us call 911 or go to the nearest emergency room. ??? If you have shortness of breath, fast heart rate, throat/tongue swelling call 911 or go to the nearest emergency room. TRUCK DRIVER documented in this encounter Medications at Time of Discharge albuterol sulfate HFA 108 (90 BASE) MCG/ACT inhaler Inhale 2 puffs into the lungs every 6 (six) hours as needed for Wheezing. documented as of this encounter H&P Notes * Wilfrido Vidal MD - 06/16/2017 10:31 AM CST Pre-Procedure/Pre-Sedation Assessment Previous Adverse Experience with Sedation, Analgesia or Anesthesia? No Physical Exam: Heart: Regular Rate & Rhythm Lungs: Clear to Auscultation HEENT: Airway Class: Class 1 ASA Classification: 1 - A Healthy Patient Patient is an appropriate candidate to undergo the planned procedure and sedation/analgesia. PROCEDURE: Preoperative Diagnosis: 1. Lumbar radiculopathy Postoperative Diagnosis: 1. Same as Preop Surgeon: WILFRIDO VIDAL MD Assistants: N/A Anesthesia: PO Valium Procedure: L3-4 lumbar epidural injection Estimated blood loss: Minimal Findings: N/A Complications: None Condition: stable on move to Post anesthesia care unit. WILFRIDO VIDAL MD 06/16/2017 10:31 AM TRUCK DRIVER * ELIDA Storey - 06/16/2017 10:23 AM CST Admission Note CC: Low back pain that radiates upward toward the mid back. HPI: Chronic low back pain with history of scoliosis. Glucose: N/A Prior to Admission medications Medication Sig Start Date End Date Taking? Authorizing Provider albuterol sulfate HFA 108 (90 BASE) MCG/ACT inhaler Inhale 2 puffs into the lungs every 6 (six) hours as needed for Wheezing. Yes Doc Abstract No Known Allergies Past Medical History: Diagnosis Date ??? Asthma ??? Scoliosis Past Surgical History: Procedure Laterality Date ??? BACK SURGERY scoliosis ??? DELIVERY ONLY Social History Social History ??? Marital status: Single Spouse name: N/A ??? Number of children: N/A ??? Years of education: N/A Occupational History ??? Not on file. Social History Main Topics ??? Smoking status: Never Smoker ??? Smokeless tobacco: Never Used ??? Alcohol use No ??? Drug use: No ??? Sexual activity: Not on file Other Topics Concern ??? Not on file Social History Narrative ??? No narrative on file Review of Systems Constitutional: Negative. HENT: Negative. Eyes: Negative. Respiratory: Negative. Cardiovascular: Negative. Gastrointestinal: Denies incontinence of bowels. Endocrine: Negative. Genitourinary: Denies urinary incontinence. Musculoskeletal: Positive for back pain. Skin: Negative. Allergic/Immunologic: Negative. Neurological: Negative. Hematological: Negative. Psychiatric/Behavioral: Negative. PHYSICAL EXAM There were no vitals filed for this visit. General: alert, appears stated age and cooperative Skin: normal and no rash or abnormalities HEENT: neck supple with midline trachea Lungs: no respiratory distress Heart: regular rate and rhythm Abdomen: soft Neuro: Lower back pain that radiates upward toward the mid back. ASSESSMENT Lumbar radiculopathy PLAN The patient will receive the first L3-L4 transforaminal epidural steroid injection today. Risks, benefits and alternative treatments were reviewed with the patient, and she verbalized understanding. She will follow up with Dr. Vidal as needed. ELIDA STOREY Cosigned by Wilfrido Vidal MD at 06/16/2017 10:58 AM MILK TRUCK DRIVER TRUCK DRIVER TRUCK DRIVER Associated attestation - Wilfrido Vidal MD - 06/16/2017 10:58 AM MILK TRUCK DRIVER I, WILFRIDO VIDAL MD, performed a History and Physical examination of the patient and discussed the management with the Mid-Level Provider. I reviewed the MLP's note and agree with the findings andplan of care, except as I have documented. documented in this encounter OR Notes * Op Note - Wilfrido Vidal MD - 06/16/2017 10:58 AM CST PROCEDURE: LUMBAR INTERLAMINAR EPIDURAL STEROID INJECTION UNDER FLUOROSCOPY LEVEL: L3-4 PREOPERATIVE DIAGNOSIS: LUMBAR RADICULOPATHY POSTOPERATIVE DIAGNOSIS: SAME PREOP SURGEON: WILFRIDO VIDAL MD RISKS, BENEFITS, ALTERNATE TREATMENTS DISCUSSED. WRITTEN CONSENT OBTAINED. PATIENT TAKEN TO PROCEDURE ROOM PLACED IN PRONE POSITION. PILLOW UNDER ABDOMEN TO REDUCE LUMBAR LORDOSIS. STERILE PREP AND DRAPE OF LUMBOSACRAL SPINE PERFORMED. ASA STANDARD MONITORS APPLIED. PROCEDURE: VERTEBRAL BODIES WERE SQUARED.. SKIN AND SUBCUTANEOUS TISSUES ANESTHETIZED WITH 1% LIDOCAINE. 20 GAUGE TOUHY EPIDURAL NEEDLE WAS PLACED midline AT THE LEVEL OF L 3-4 USING LOSS OF RESISTANCE TOAIR. APPROPRIATE NEEDLE TIP POSITIONS WERE CONFIRMED IN THE AP AND LATERAL VIEWS. AFTER NEGATIVE ASPIRATION, 3 CC OF CONTRAST WAS INJECTED IN THE LATERAL VIEW CONFIRMING SPREAD IN THE POSTERIOR EPIDURAL SPACE. NEGATIVE ASPIRATION PRIOR TO 3 CC OF CONTRAST INJECTED IN THE AP VIEW CONFIRMING SPREAD IN THEEPIDURAL SPACE NO INTRAVASCULAR OR INTRATHECAL UPTAKE NOTED. NEGATIVE ASPIRATION PRIOR TO INJECTIONOF 80 MG DEPOMEDROL AND 2 CC 2% LIDOCAINE. NEEDLE REMOVED. NO COMPLICATIONS. POST PROCEDURE: PATIENT TOLERATED PROCEDURE WELL AND OBSERVED FOR APPROXIMATELY 20-30 MINUTES PRIOR TO DISCHARGE. DISCHARGED IN STABLE CONDITION WITH APPROPRIATE POST- PROCEDURE INSTRUCTIONS. PATIENT WILL BE CALLED OVER THE NEXT FEW DAYS FOR FOLLOW UP. TRUCK DRIVER documented in this encounter Plan of Treatment Not on file documented as of this encounter Procedures Procedure Name Priority Date/Time Associated Diagnosis Comments XR PAIN CLINIC C-ARM Today 06/16/2017 11:53 AM MILK TRUCK DRIVER Lumbar radiculopathy INJECTION EPIDURAL LUMBAR INTERLAMINAR 06/16/2017 11:06 AM MILK TRUCK DRIVER Lumbar radiculopathy Case Notes NO BLOOD THINNERSLESI L3-4 (53592) MERIDIANREFERRED BY05/14/17 SCHED CELENA documented in this encounter Results * XR PAIN CLINIC C-ARM (06/16/2017 11:53 AM MILK TRUCK DRIVER) Narrative Kristin Fontanez, RTR - 06/16/2017 12:51 PM MILK TRUCK DRIVER This report does not contain a radiologist's interpretation. Please review associated procedure and/or operative report. us Wilfrido Vidal MD GENERAL IMAGING Final Result documented in this encounter Visit Diagnoses Diagnosis Lumbar radiculopathy Thoracic or lumbosacral neuritis or radiculitis, unspecified Lumbar radiculopathy Thoracic or lumbosacral neuritis or radiculitis, unspecified documented in this encounter Administered Medications Inactive Administered Medications - up to 3 most recent administrations Medication Order MAR Action Action Date Dose Rate Site diazepam (VALIUM) tablet 10 mg 10 mg, Oral, Once as needed, Anxiety, 1 dose, Starting on Fri06/16/17 at 1126, Until Fri06/16/17 at 1335, Pre-Op documented in this encounter Active and Recently Administered Medications Times are shown in MILK TRUCK DRIVER. PRN Medication Order 06/14/2017 06/15/2017 06/16/2017 diazepam (VALIUM) tablet 10 mg 10 mg, Oral, Once as needed, Anxiety, 1 dose, Starting on Fri06/16/17 at 1126, Until Fri06/16/17 at 1335, Pre-Op methylPREDNISolone acetate (DEPO-MEDROL) injection (CANCELED) As needed, Starting on Fri06/16/17 at 1104, Until Fri06/16/17 at 1115, Intra-Op 1113 (Given - Provid er: Wilfrido Vidal MD) documented in this encounter Care Teams Tinware Lithograph Press Operator Relationship Specialty Start Date End Date Magy Medina NP 3 [facility] [address] [place] [address] PCP - General 12/23/16 01/10/24 documented as of this encounter
--- OUTSIDE RECORDS SUMMARY | 2024-06-05 20:31 | XMS_ITS | Encounter Summary ---
Author Organization [facility] Address [address] [place] [address]. [place], [place] [id number] [place] [address] Care Team Providers Care Lumber Press Operator Name Role Phone Magy Medina TON CYLINDER INSPECTOR Primary Care Provider [phone] Reason for Visit * Reason Comments Flu Like Symptoms Encounter Details Date Type Department Care Team (Late st Contact Info) Description 05/26/2018 9:26 AM MAINTENANCE PAINTER - 05/26/2018 11:01 AM MAINTENANCE PAINTER Emergency [facility] [place] [address] Federica Faith NP [address] [id number] Flu Like Symptoms Discharge Disposition: Home or Self Care (Routine [...] Sign Reading Time Taken Comments Blood Pressure 165/89 05/26/2018 8:57 AM MAINTENANCE PAINTER Pulse 99 05/26/2018 9:00 AM MAINTENANCE PAINTER Temperature 36.8 ??C (98.2 ??F) 05/26/2018 8:57 AM CS T Respiratory Rate 18 05/26/2018 8:57 AM MAINTENANCE PAINTER Oxygen Saturation 99% 05/26/2018 8:57 AM MAINTENANCE PAINTER Inhaled Oxygen Concentration - - Weight 84.2 kg (185 lb 9.6 oz) 05/26/2018 8:57 A M MAINTENANCE PAINTER Height 157.5 cm (5' 2 ) 05/26/2018 8:57 AM MAINTENANCE PAINTER Body Mass Index 33.95 05/26/2018 8:57 AM MAINTENANCE PAINTER documented in this encounter Medications at Time [...] as of this encounter ED Notes * Tori Dacosta RN - 05/26/2018 10:54 AM CST This RN went into pt's room to collect labs and update pt, pt stated I'm leaving, I'm honestly over it. Pt states she doesn't feel like she received good care from her provider and complaints were not taken seriously and she would like to go somewhere else. Pt walked out before provider could be notified or AMA paperwork signed. No IV access was established. TENANCE PAINTER * ELIDA Greer - 05/26/2018 9:30 AM CST Emergency Department Note Chief Complaint Chief Complaint Patient presents with ??? Flu Like Symptoms History of Present Illness Patient complains of body aches, subjective fever sore throat, cough, pain in chest with cough for the last 2 days. States she has been taking Cassels or cold plus medication, last dose last night without relief of symptoms. No ill contacts. States she is usually Medical History ALLERGIES: No Known Allergies MEDICATIONS: [...] Constitutional: Positive for fever. Negative for chills. Subjective HENT: Positive for congestion and sore throat. Negative for trouble swallowing. Respiratory: Positive for cough. Negative for shortness of breath and wheezing. Cardiovascular: Negative for chest pain. Gastrointestinal: Negative for abdominal pain, constipation, diarrhea and nausea. Genitourinary: Negative for difficulty urinating. Musculoskeletal: Positive for myalgias. Skin: Negative for rash. Neurological: Negative for light-headedness and headaches. Psychiatric/Behavioral: Negative for decreased concentration. Physical Exam Filed Vitals: 05/26/18 0857 05/26/18 0900 BP: 165/89 Pulse: 99 99 Resp: 18 Temp: 98.2 ??F (36.8 ??C) TempSrc: Oral SpO2: 99% Weight: 84.2 kg (185 lb 9.6 oz) Height: 5' 2 (1.575 m) Physical Exam Constitutional: She is oriented to person, place, and time. She appears well- developed and well-nourished. No distress. HENT: Head: Normocephalic. Right Ear: External ear normal. Left Ear: External ear normal. Mouth/Throat: No oropharyngeal exudate. Eyes: Pupils are equal, round, and reactive to light. Neck: Normal range of motion. Neck supple. Cardiovascular: Normal rate, regular rhythm, normal heart sounds and intact distal pulses. No murmur heard. Pulmonary/Chest: Effort normal and breath sounds normal. No stridor. No respiratory distress. She has no wheezes. She has no rales. She exhibits no tenderness. Abdominal: Soft. Bowel sounds are normal. There is no tenderness. Musculoskeletal: She exhibits no edema or tenderness. Lymphadenopathy: She has no cervical adenopathy. Neurological: She is alert and oriented to person, place, and time. Skin: Skin is warm and dry. No rash noted. No pallor. Psychiatric: She has a normal mood and affect. Her behavior is normal. Judgment and thought contentnormal. Nursing note and vitals reviewed. Diagnostic Studies / Procedures ELECTROCARDIOGRAMS: No results found for this visit on 05/26/18. LABORATORY STUDIES: Results for orders placed or performed during the hospital encounter of 05/26/18 RAPID STREP A Result Value Ref Range Specimen Type THROAT RAPID STREP TEST NEGATIVE NEGATIVE INFLUENZA A & B Result Value Ref Range Specimen Type NASAL INFLUENZA A NEGATIVE NEGATIVE INFLUENZA B NEGATIVE NEGATIVE IMAGING STUDIES XR CHEST PA+LAT (Results Pending) ED Course / Medical Decision Making ED Course as of May 26 1100 Tue May 26, 2018 1032 RAPID STREP TEST: NEGATIVE [LM] 1049 INFLUENZA B: NEGATIVE [LM] ED Course User Index [LM] ELIDA Greer Medications ibuprofen (MOTRIN) tablet 800 mg (800 mg Oral Given 05/26/18 1012) Clinical Impression Viral illness (Primary) Current Discharge Medication List Flu and strep are negative. Patient vs are stable. She left before labs and xray were collected andwithout results per nursing staff. Eloped. Disposition: Eloped Follow-Up: No follow-up provider specified. ELIDA GREER 05/26/2018 ELIDA Greer 05/26/18 1100 Cosigned by Suman Barrientos MD at 06/04/2018 11:19 PM MAINTENANCE PAINTER TENANCE PAINTER TENANCE PAINTER * Karlo Murphy RN - 05/26/2018 8:56 AM CST Pt ambulatory to triage with complaint of productive cough, NVD, body aches, chills, and sore throat x 2 days. Denies fever but also notes she has not checked her temp at home. Notes Hx of asthma. TENANCE PAINTER documented in this encounter Plan of Treatment Not on file documented as of this encounter Procedures Procedure Name Priority Date/Time Associated Diagnosis Comments STREP A, DNA STAT 05/26/2018 9:53 AM MAINTENANCE PAINTER RAPID STREP A STAT 05/26/2018 9:53 AM MAINTENANCE PAINTER INFLUENZA A & B STAT 05/26/2018 9:53 AM MAINTENANCE PAINTER documented in this encounter Results * STREP A, DNA (05/26/2018 9:53 AM MAINTENANCE PAINTER) STREP A MOLECULAR NEGATIVE NEGATIVE 018 5:[address] [facility] Comment:SPECIMEN NEGATIVE FO R GROUP A STREPTOCOCCUS BY DNA AMPLIFICATION 05/26/2018 9:53 AM MAINTENANCE PAINTER Federica Faith NP MICROBIOLOGY - GENERAL YAHAIRA DEL TORO Final Result [facility] [address] [place] [id number], * INFLUENZA A & B (05/26/2018 9:53 AM MAINTENANCE PAINTER) SPECIMEN TYPE NASAL 05/26/2018 10:[address] [facility] INFLUENZA A NEGATIVE NEGATIVE 05/26/2018 10:[address] [facility] INFLUENZA B NEGATIVE NEGATIVE 05/26/2018 10:[address] [facility] Comment: Interpretation: Negative for Influenza A and B. A negative result does not exclude influenza virus infection. If influenza is circulating in your community, a diagnosis of influenza should be considered based on a patient's clinical presentation and empiric antiviral treatment should be considered, if indicated. If more conclusive testing is needed for hospitalized inpatients, follow-up confirmatory testing with RT-PCR requires a separate order. NASAL STRUCTURE / Unknown 05/26/2018 9:53 AM MAINTENANCE PAINTER us Federica Faith TON CYLINDER INSPECTOR MICROBIOLOGY - GENERAL ORDERA BLES Final Result [facility] [address] [place] [address], [place] [phone] * RAPID STREP A (05/26/2018 9:53 AM MAINTENANCE PAINTER) SPECIMEN TYPE THROAT 05/26/2018 10:[address] [facility] RAPID STREP TEST NEGATIVE NEGATIVE 05/26/2018 10:[address] [facility] STRUCTURE OF ANTERIOR PORTION OF NECK / Unknown 05/26/2018 9:53 AM MAINTENANCE PAINTER us Federica Faith NP MICROBIOLOGY - GENERAL ORDERA BLES Final Result Performing Organization Address City/[facility] Co de Phone Number [facility] [address] [place] [address], [place] [phone] documented in this encounter Visit Diagnoses Diagnosis Viral illness- Primary Unspecified viral infection, in conditions classified elsewhere and of unspecified site documented in this encounter Administered Medications Inactive Administered Medications - up to 3 most recent administrations Medication Order MAR Action Action Date Dose Rate Site ibuprofen (MOTRIN) tablet 800 mg 800 mg, Oral, Once, 1 dose, On Fri05/26/18 at 0945 Given 05/26/2018 10:12 AM MAINTENANCE PAINTER 800 mg documented in this encounter Active and Recently Administered Medications Times are shown in MAINTENANCE PAINTER. Scheduled Medication Order 05/24/2018 05/25/2018 05/26/2018 ibuprofen (MOTRIN) tablet 800 mg (COMPLETED) 800 mg, Oral, Once, 1 dose, On Fri05/26/18 at 0945 1012 (Given - Provid er: Tori Dacosta RN) documented in this encounter Care Teams Lumber Press Operator Relationship Specialty Start Date End Date Magy Medina NP [address] [facility] [address] [place] [address] PCP - General 12/23/16 01/10/24 documented as of this encounter
--- OUTSIDE RECORDS SUMMARY | 2024-06-05 20:31 | XMS_ITS | Encounter Summary ---
Author Organization [facility] Address [address] [place] [address]. [place], [place] [id number] [place] [address] Care Team Providers Care Lithographer Helper Name Role Phone Magy Medina NP Primary Care Provider [phone] Encounter Details Date Type Department Care Team (Latest Contact Info) Description 07/08/2023 Travel Social History Tobacco Use Types Packs/Day [...] on filedocumented in this encounter Care Teams Lithographer Helper Relationship Specialty Start Date End Date Magy Medina NP [address] [facility] [address] [place] [address] PCP - General 12/23/16 01/10/24 documented as of this encounter
--- OUTSIDE RECORDS SUMMARY | 2024-06-05 20:31 | XMS_ITS | Encounter Summary ---
Author Organization [facility] Address [address] [place] [address]. [place], [place] [address] [place] [address] Care Team Providers Care Safety Investigator Name Role Phone Magy Medina HOSE TESTER Primary Care Provider [phone] Holthaus, Magy HOSE TESTER Primary Care Provider [phone] Holthaus, Magy HOSE TESTER Primary Care Provider [phone] Holthaus, Magy HOSE TESTER Primary Care Provider [phone] Holthaus, Magy HOSE TESTER Primary Care Provider [phone] Holthaus, Magy HOSE TESTER Primary Care Provider [phone] Holthaus, Magy HOSE TESTER Primary Care Provider [phone] Holthaus, Magy HOSE TESTER Primary Care Provider [phone] Holthaus, Magy HOSE TESTER Primary Care Provider [phone] Md Generic Conversion Primary Care Provider Unavailable Md Generic Conversion Primary Care Provider Unavailable Md Generic Conversion Primary Care Provider Unavailable Sondra Marley MD Primary Care Provider [phone] Sondra Marley MD Primary Care Provider [phone] Encounter Details Date Type Department Care Team (Late st Contact Info) Description 07/11/1997 Abstract [place] [address] Md Generic ConversionMD Social History Tobacco Use [...] on filedocumented in this encounter Care Teams Safety Investigator Relationship Specialty Start Date End Date Magy Medina NP [address] [place], [place] [address] PCP - General 12/23/16 01/10/24 Magy Medina NP [address] [place], [place] [address] PCP - General 12/05/16 12/22/16 Magy Medina NP [address] [place], [place] [address] PCP - General 11/27/16 12/04/16 Magy Medina NP [address] [place], [place] [id number] PCP - General 11/20/16 11/26/16 Magy Medina NP [address] [place], [place] [address] PCP - General 11/15/16 11/19/16 Magy Medina NP [address] [place], [place] [id number] PCP - General 10/31/16 11/14/16 Magy Medina NP [address] [place], [place] [address] PCP - General 10/29/16 10/30/16 Magy Medina NP [address] [facility] [address] [place] [address] PCP - General 10/24/16 10/28/16 Magy Medina NP [address] [facility] [address] [place] [address] PCP - General 10/22/16 10/23/16 , Generic Conversion, PCP - General 10/14/16 Md, Generic Conversion, PCP - General 01/28/16 7 Md, Generic Conversion, PCP - General 09/21/15 Sondra Marley MD [address] [place] [address] PCP - General 09/05/12 09/20/15 Sondra Marley MD [address] [place] [address] PCP - General 02/14/11 09/04/12 documented as of this encounter
--- OUTSIDE RECORDS SUMMARY | 2024-06-05 20:31 | XMS_ITS | Encounter Summary ---
Author Organization [facility] Address [address] [place] [address]. [place] [address] [place] [address] Care Team Providers Care C Developer Name Role Phone Magy Medina NP Primary Care Provider [phone] Reason for Visit * Auth/Cert Specialty Diagnoses / Procedures Referred By Contac t Referred To Contact Diagnoses Lumbar radiculopathy [M54.16] Procedures INJECTION EPIDURAL LUMBAR INTERLAMINAR Referral ID Status Reason Start Date Expiration Date Visits Re quested Visits Authorized [id number] 1 1 Encounter Details Date Type Department Care Team (Late st Contact Info) Description 06/16/2017 10:00 AM DUMPER BULK SYSTEM - 06/16/2017 10:20 AM DUMPER BULK SYSTEM Surgery [facility] [place] [address] [id number] Wilfrido Vidal MD [facility] [address] [place] [address] INJECTION EPIDURAL LUMBAR INTERLAMINAR Surgery Details Date/Time Status Location OR Service Patient Class Case Class Case Type Trauma Case? 06/16/2017 10:00 AM Posted [facility] Pain Mgmt Pain Proc Rm Pain Medicine Short Stay/Outpa tient Surgery No Panel 1 Procedure LRB Anes Op Region Wound Class Comments INJECTION EPIDURAL LUMBAR INTERLAMINAR N/A Local S pine Lumbar Clean Surgeon Surgeon Role Service Panel Wilfrido Vidal MD Primary Pain Medicine 1 Case Notes NO BLOOD THINNERSLESI L3-4 (67404) MERIDIANREFERRED BY05/14/17 SHU CELENA documented in this encounter Social History Tobacco Use Types Packs/Day Years [...] Comments Blood Pressure 126/75 06/16/2017 11:22 AM DUMPER BULK SYSTEM Pulse 79 06/16/2017 11:22 AM DUMPER BULK SYSTEM Temperature - - Respiratory Rate 20 06/16/2017 11:2 2 AM DUMPER BULK SYSTEM Oxygen Saturation 100% 06/16/2017 11: 22 AM DUMPER BULK SYSTEM Inhaled Oxygen Concentration - - Weight 79.7 kg (175 lb 11.3 oz) 018 11:22 AM DUMPER BULK SYSTEM Height 152.4 cm (5') 06/16/2017 11:22 AM DUMPER BULK SYSTEM Body Mass Index 34.32 06/16/2017 11:22 AM DUMPER BULK SYSTEM documented in this encounter Discharge Instructions * Discharge Instructions* Silvana Bourne RN - 06/16/2017 11:31 AM DUMPER BULK SYSTEM [facility] Interventional Pain Management Discharge Instructions You are [...] DOCTOR AND HOW TO REACH US: Call [phone] ext. [phone] for scheduling, insurance questions or speak with [...] or go to the nearest emergency room. ER BULK SYSTEM documented in this encounter Medications at Time [...] unit. WILFRIDO VIDAL MD 06/16/2017 10:31 AM ER BULK SYSTEM * ELIDA Storey - 06/16/2017 10:23 AM [...] Wilfrido Vidal MD at 06/16/2017 10:58 AM DUMPER BULK SYSTEM ER BULK SYSTEM ER BULK SYSTEM Associated attestation - Wilfrido Vidal MD - 06/16/2017 10:58 AM DUMPER BULK SYSTEM I, WILFRIDO VIDAL MD, performed a History [...] THE NEXT FEW DAYS FOR FOLLOW UP. ER BULK SYSTEM documented in this encounter Plan of Treatment Not on file documented as of this encounter Procedures Procedure Name Priority Date/Time Associated Diagnosis Comments XR PAIN CLINIC C-ARM Today 06/16/2017 11:53 AM DUMPER BULK SYSTEM Lumbar radiculopathy INJECTION EPIDURAL LUMBAR INTERLAMINAR 06/16/2017 11:06 AM DUMPER BULK SYSTEM Lumbar radiculopathy Case Notes NO BLOOD THINNERSLESI L3-4 (97582) MERIDIANREFERRED BY05/14/17 SHU DALLAS documented in this encounter Results * XR PAIN CLINIC C-ARM (06/16/2017 11:53 AM DUMPER BULK SYSTEM) Narrative Kristin Fontanez, RTR - 06/16/2017 12:51 PM DUMPER BULK SYSTEM This report does not contain a radiologist's [...] at 1335, Pre-Op methylPREDNISolone acetate (DEPO-MEDROL) injection As needed, Starting on Fri06/16/17 at 1104, Until Fri06/16/17 at 1115, Intra-Op Given 06/16/2017 11:13 AM DUMPER BULK SYSTEM 80 mg Back documented in this encounter Active and Recently Administered Medications Times are shown in DUMPER BULK SYSTEM. PRN Medication Order 06/14/2017 06/15/2017 06/16/2017 diazepam (VALIUM) tablet 10 mg 10 mg, Oral, Once as needed, Anxiety, 1 dose, Starting on Fri06/16/17 at 1126, Until Fri06/16/17 at 1335, Pre-Op methylPREDNISolone acetate (DEPO-MEDROL) injection (CANCELED) As needed, Starting on Fri06/16/17 at 1104, Until Fri06/16/17 at 1115, Intra-Op 1113 (Given - Provid er: Wilfrido Vidal MD) documented in this encounter Care Teams C Developer Relationship Specialty Start Date End Date Magy Medina NP [address] [facility] [address] [place], [place] [id number] PCP - General 12/23/16 01/10/24 documented as of this encounter
--- OUTSIDE RECORDS SUMMARY | 2024-06-05 20:31 | XMS_ITS | Encounter Summary ---
Author Organization [facility] Address [address] [place] [address]. [place] [address] [place] [address] Care Team Providers Care Slunk Skinner Name Role Phone Adam Magy GARIBAY Primary Care Provider [phone] Encounter Details Date Type Department Care Team (Late st Contact Info) Description 01/09/2018 5:02 PM CDT - 01/09/2018 6:[address] [facility] [place] [address] Discharge Disposition: Left Against Medical Advice Social History Tobacco Use Types Packs/Day Years [...] on file documented as of this encounter Medications at Time of Discharge [...] 12/17/2017 05/22/2023 documented as of this encounter Plan of Treatment Not on file documented as of this encounter Visit Diagnoses Not on filedocumented in this encounter Care Teams Slunk Skinner Relationship Specialty Start Date End Date Magy Medina NP 3 [facility] [address] [place] [address] PCP - General 12/23/16 01/10/24 documented as of this encounter
--- OUTSIDE RECORDS SUMMARY | 2024-06-05 20:31 | XMS_ITS | Encounter Summary ---
Author Organization [facility] Address [address] [place] [address]. [place], [place] [address] [place] [address] Care Team Providers Care Director Oncology Name Role Phone Magy Medina COLLECTIONS DIRECTOR Primary Care Provider [phone] Holthaus, Magy COLLECTIONS DIRECTOR Primary Care Provider [phone] Holthaus, Magy COLLECTIONS DIRECTOR Primary Care Provider [phone] Holthaus, Magy COLLECTIONS DIRECTOR Primary Care Provider [phone] Holthaus, Magy COLLECTIONS DIRECTOR Primary Care Provider [phone] Holthaus, Magy COLLECTIONS DIRECTOR Primary Care Provider [phone] Holthaus, Magy COLLECTIONS DIRECTOR Primary Care Provider [phone] Holthaus, Magy COLLECTIONS DIRECTOR Primary Care Provider [phone] Holthaus, Magy COLLECTIONS DIRECTOR Primary Care Provider [phone] Md Generic Misha MEEK Primary Care Provider Unavailable Md Generic Misha MEEK Primary Care Provider Unavailable Md Generic Misha MEEK Primary Care Provider Unavailable Sondra Marley MD Primary Care Provider [phone] Sondra Marley MD Primary Care Provider [phone] Encounter Details Date Type Department Care Team (Late st Contact Info) Description 04/11/2005 Emergency [facility] [place] [address] Derrek Meek MD Social History Tobacco Use [...] on filedocumented in this encounter Care Teams Director Oncology Relationship Specialty Start Date End Date Magy Medina NP [address] [place] [address] PCP - General 12/23/16 01/10/24 Magy Medina NP [address] [place], [place] [address] PCP - General 12/05/16 12/22/16 Magy Medina NP [address] [place], [place] [address] PCP - General 11/27/16 12/04/16 Magy Medina NP [address] [place], [place] [address] PCP - General 11/20/16 11/26/16 Magy Medina NP [address] [place], [place] [address] PCP - General 11/15/16 11/19/16 Magy Medina NP [address] [place], [place] [address] PCP - General 10/31/16 11/14/16 Magy Medina NP [address] [place] [address] PCP - General 10/29/16 10/30/16 Magy Medina NP [address] [facility] [address] [place] [address] PCP - General 10/24/16 10/28/16 Magy Medina NP 3 [facility] [address] [place] [address] PCP - General 10/22/16 10/23/16 , Generic Conversion, PCP - General 10/14/16 , Generic Conversion, PCP - General 01/28/16 Md, Generic Conversion, PCP - General 09/21/15 Sondra Marley MD [address] [place] [address] PCP - General 09/05/12 09/20/15 Sondra Marley MD [address] [place] [address] PCP - General 02/14/11 09/04/12 documented as of this encounter
--- OUTSIDE RECORDS SUMMARY | 2024-06-05 20:31 | XMS_ITS | Encounter Summary ---
Author Organization [facility] Address [address] [place] [address]. [place] [address] [place] [address] Care Team Providers Care Buzzle Buffer Name Role Phone Ho Medina NP Primary Care Provider Reason for Referral * Imaging (Emergency) - Closed Specialty Diagnoses / Procedures Referred By Daniel foreman Referred To Contact RADIOLOGY Procedures US PELVIC TV NON OB Ifrah Lynn PA [address] [address] Phone: tel: fax: Referral ID Status Reason Start Date Expiration Date Visits Re quested Visits Authorized [id number] Closed 11/24/2019 12/23/2020 1 1 Reason for Visit * Reason Comments Vaginal Bleeding Encounter Details Date Type Department Care Team (Late st Contact Info) Description 11/24/2019 11:51 AM CDT - 11/24/2019 2:21 PM CDT Emergency [facility] [place] [address] Benita Shearer PA-C [address] [place] [address] Ifrah Lynn PA [address] [address] Vaginal Bleeding Discharge Disposition: Home or Self Care (Routine [...] Sign Reading Time Taken Comments Blood Pressure 131/80 11/24/2019 2:18 PM CDT Pulse 76 11/24/2019 2:18 PM CDT Temperature 36.9 ??C (98.5 ??F) 11/24/2019 11:49 AM C DT Respiratory Rate 18 11/24/2019 2:18 PM CDT Oxygen Saturation 100% 11/24/2019 2:18 PM CDT Inhaled Oxygen Concentration - - Weight 81.6 kg (180 lb) 11/24/2019 11:49 AM CDT Height 157.5 cm (5' 2 ) 11/24/2019 11:49 AM CDT Body Mass Index 32.92 11/24/2019 11:49 AM CDT documented in this encounter Discharge Instructions * Discharge Instructions* KYREE Sanches - 11/24/2019 1:57 PM CDT Thank you for giving us the opportunity [...] by your primary care physician or senior consultant. Please mention to your follow-up physician that you [...] such as many narcotic drug combinations and ghcz-efr-dubbyik cold medicines. --Again, it was a pleasure taking care of you. * Attachments The following attachments cannot be sent through Care Everywhere. * Heavy Periods ([place]) documented in this encounter Medications at Time [...] as of this encounter ED Notes * Beth Alejandra RN - 11/24/2019 1:24 PM CDT Pt taken to ultrasound * Beth Alejandra RN - 11/24/2019 12:40 PM CDT Called ultrasound, no room available yet. They will call when one is available * KYREE Sanches - 11/24/2019 12:24 PM CDT [place], [place] EMERGENCY DEPARTMENT ENCOUNTER HISTORICAL INFORMATION Primary Care Doctor: HO MEDINA NP Patient information was obtained primarily from the patient, nursing notes. History/Exam limitations: None Provider at Bedside Date/Time Event User Comments 11/24/19 1153 Provider at Bedside Assessing Patient BENITA SHEARER [place] CHIEF COMPLAINT Vaginal Bleeding Chief Complaint Patient presents with ??? Vaginal Bleeding ELVA Johnson is a 29-year-old female who presents to heavy vaginal bleeding. States that her cycle started 3 days ago but yesterday she began having increased amount of vaginal bleeding and clots and lower abdominal pain. States the pain feels occasionally like cramps but then often feels much worse. She denies any vaginal discharge, urinary symptoms, vomiting. Does not feel dizzy or lightheaded. Notes that she has been off of her control medication for over 1 month as she did not like the way she made it feel but states that any intercourse that she has had since then has been protected. She called the office of her [facility], Dr. Mortensen who advised her to come to the ER and get an ultrasound. PAST MEDICAL HISTORY Past Medical History: Diagnosis Date ??? Asthma ??? Scoliosis SURGICAL HISTORY Past Surgical History: Procedure Laterality Date ??? DELIVERY ONLY CURRENT MEDICATIONS No current facility-administered medications for this encounter. Current Outpatient Medications: ??? albuterol sulfate HFA 108 (90 BASE) MCG/ACT inhaler, Inhale 2 puffs into the lungs every 6 (six) hours as needed for Wheezing., Disp: , Rfl: ??? ibuprofen 600 MG tablet, Take 1 tablet (600 mg total) by mouth every 8 (eight) hours as needed for Pain., Disp: 30 tablet, Rfl: 0 ??? methocarbamol (ROBAXIN-750) 750 MG Tab, Take 1 tablet (750 mg total) by mouth 4 (four) times daily as needed., Disp: 20 tablet, Rfl: 0 ALLERGIES Allergies Allergen Reactions ??? Latex Rash FAMILY HISTORY Family History Problem Relation Name Age of Onset ??? Diabetes Mother ??? Hypertension Mother ??? Stroke Mother ??? Asthma Mother SOCIAL HISTORY Social History Socioeconomic History ??? Marital status: Single Spouse name: Not on file ??? Number of children: Not on file ??? Years of education: Not on file ??? Highest education level: Not on file Occupational History ??? Not on file Social Needs ??? Financial resource strain: Not on file ??? Food insecurity: Worry: Not on file Inability: Not on file ??? Transportation needs: Medical: Not on file Non-medical: Not on file Tobacco Use ??? Smoking status: Never Smoker ??? Smokeless tobacco: Never Used Substance and Sexual Activity ??? Alcohol use: No ??? Drug use: No ??? Sexual activity: Not on file Lifestyle ??? Physical activity: Days per week: Not on file Minutes per session: Not on file ??? Stress: Not on file Relationships ??? Social connections: Talks on phone: Not on file Gets together: Not on file Attends shinto service: Not on file Active member of club or organization: Not on file Attends meetings of clubs or organizations: Not on file Relationship status: Not on file ??? Intimate partner violence: Fear of current or ex partner: Not on file Emotionally abused: Not on file Physically abused: Not on file Forced sexual activity: Not on file Other Topics Concern ??? Not on file Social History Narrative ??? Not on file REVIEW OF SYSTEMS Constitutional: Denies fever, chills, weight loss or weakness. Skin: Denies rash. HEENT: Denies sore throat or ear pain. Respiratory: Denies cough or shortness of breath. Cardiovascular: Denies chest pain, palpitations or swelling. GI: Denies abdominal pain, nausea, vomiting, or diarrhea. : +Heavy vaginal bleeding, cramping in pelvis. Denies dysuria, urinary frequency. Musculoskeletal: Denies back pain. Neurologic: Denies headache, focal weakness or sensory changes. Psychiatric: Denies depression, suicidal ideation or homicidal ideation. See HPI for further details. All systems negative except as marked. Physical Exam VITAL SIGNS: Filed Vitals: 11/24/19 1149 BP: 133/87 Pulse: 76 Resp: 17 Temp: 98.5 ??F (36.9 ??C) TempSrc: Oral SpO2: 100% Weight: 81.6 kg (180 lb) Height: 5' 2 (1.575 m) Constitutional: Well developed, No acute distress, Non-toxic appearance. Integument: Warm, Dry, No erythema, No rash. HEENT: Normocephalic, Atraumatic, Conjunctiva normal Neck- Normal range of motion, Supple Back- Normal range of motion, No gross abnormality Respiratory: Normal breath sounds, No respiratory distress. Cardiovascular: Normal heart rate, Normal rhythm GI: Soft, Suprapubic tenderness Pelvic: Mild-moderate amount of vaginal bleeding without clots, cervix closed, non tender during exam, no obvious vaginal discharged (exam completed with TAMAR Campos) Musculoskeletal: Good ROM, no deformities noted Neurologic: Alert & oriented x 3, No focal deficits noted. Psychiatric: Affect normal, Judgment normal, Mood normal. EKG (interpreted by ED provider) No results found for this visit on 11/24/19. LABORATORY Labs Reviewed CBC W/DIFF AUTOMATED - Abnormal; Notable for the following components: Result Value ABS. EOSINOPHILS 0.53 (*) All other components within normal limits COMPREHENSIVE METABOLIC PANEL - Abnormal; Notable for the following components: CHLORIDE S/P/B 110 (*) A/G RATIO 0.8 (*) All other components within normal limits POCT URINE (BACK OFFICE) - Normal CHORIONIC GONADOTROPIN HCG QL RADIOLOGY US PELVIC TV NON OB Final Result by User, [id number] (11/23 0815) Procedure(s): US PELVIC NON OB COMP TV Date of service: 11/24/2019 1:13 PM Provided clinical information: 29 years, Female, pelvic pain, heavy menstruation Procedure and materials: Grayscale and color Doppler images of the pelvis are obtained. Images are obtained transvaginally Comparison studies: None. Observations: Uterus measures 10.2 x 5.4 x 6.7 cm. Images stripe is 2 mm in diameter. This is not thickened. Small nabothian cyst is present. Right ovary measures 3.2 x 1.2 x 1.3 cm. Color and duplex flow is present. Color and duplex flow is present within the left ovary. Left ovary measures 3.2 x 2 x 2.8 cm. Few small left ovarian follicles are present. One of these measures approximately 1.3 cm. IMPRESSION: Examination is within normal limits for patient of menstrual age. Interpreted By: Devang Landin MD, 11/24/2019 1:43 PM PROCEDURES Procedures MDM ED Course as of Nov 23 135 Wed Nov 24, 2019 1306 H&H stable. Negative preg test. HGB: 12.5 [HS] 1355 US shows no acute abnormalities. Advised pt on all test results. Discussed that this may be a heavier than normal cycle due to the change from stopping control. Recommended follow up with [facility] and discussed return precautions- having to change pad or tampon in less than 1 hour, dizziness or feeling lightheaded, other. [HS] ED Course User Index [HS] KYREE Sanches I have discussed today's findings with the [...] of these instructions. Impression/Disposition SNOMED CT(R) 1. Menorrhagia MENORRHAGIA Disposition: Discharge Medications - No data to display Current Discharge Medication List KYREE SANCHES PA 11/24/19 1357 Cosigned by Fred Santiago MD at 11/25/2019 7:16 AM CDT * Yeimy Akers RN - 11/24/2019 11:47 AM CDT Pt reports starting her period 3 days ago but yesterday developed new and more painful lower abd pain with increase in vaginal bleeding, clots, and nausea. States she was previously on control but has been off of it for the last 1.5 months and states I better not be since I just started my period documented in this encounter Plan of Treatment Not on file documented as of this encounter Procedures Procedure Name Priority Date/Time Associated Diagnosis Comments US PELVIC NON OB COMP TV STAT 11/24/2019 1:34 PM CDT POCT URINE (BACK OFFICE) STAT 11/24/2019 12:15 PM CDT COMPREHENSIVE METABOLIC PANEL STAT 11/24/2019 12:03 PM CDT CHORIONIC GONADOTROPIN HCG QL STAT 11/24/2019 12:03 PM CDT CBC W/DIFF AUTOMATED STAT 11/24/2019 12:03 PM CDT documented in this encounter Results * US PELVIC TV NON OB (11/24/2019 1:34 PM CDT) Anatomical Region Laterality Modality Pelvis Ultrasound 11/24/2019 1:43 PM CDT Impressions 11/24/2019 1:45 PM CDT IMPRESSION: Examination is within normal limits for patient of menstrual age. Interpreted By: Devang Landin MD, 11/24/2019 1:43 PM Narrative 11/24/2019 1:45 PM CDT Procedure(s): US PELVIC NON OB COMP TV Date of service: 11/24/2019 1:13 PM Provided clinical information: 29 years, Female, pelvic pain, heavy menstruation Procedure and materials: Grayscale and color Doppler images of the pelvis are obtained. ??Images are obtained transvaginally Comparison studies: None. Observations: ?? Uterus measures 10.2 x 5.4 x 6.7 cm. ??Images stripe is 2 mm in diameter. ??This is not thickened. ??Small nabothian cyst is present. ??Right ovary measures 3.2 x 1.2 x 1.3 cm. ??Color and duplex flow is present. Color and duplex flow is present within the left ovary. ??Left ovary measures 3.2 x 2 x 2.8 cm. ??Few small left ovarian follicles are present. ??One of these measures approximately 1.3 cm. Procedure Note Devang Landin MD - 11/24/2019 Procedure(s): US PELVIC NON OB COMP TV Date of service: 11/24/2019 1:13 PM Provided clinical information: 29 years, Female, pelvic pain, heavymenstruation Procedure and materials: Grayscale and color Doppler images of the pelvisare obtained. Images are obtained transvaginally Comparison studies: None. Observations: Uterus measures 10.2 x 5.4 x 6.7 cm. Images stripe is 2 mm in diameter.This is not thickened. Small nabothian cyst is present. Right ovarymeasures 3.2 x 1.2 x 1.3 cm. Color and duplex flow is present. Color and duplex flow is present within the left ovary. Left ovarymeasures 3.2 x 2 x 2.8 cm. Few small left ovarian follicles are present.One of these measures approximately 1.3 cm. IMPRESSION: Examination is within normal limits for patient of menstrual age. Interpreted By: Devang Landin MD, 11/24/2019 1:43 PM Ifrah ADORNO ULTRASOUND Final Resul t * POCT urine (11/24/2019 12:15 PM CDT) URINE HCG TEST neg NEGATIVE Internal Control performed as Expected? valid VALID Comment:hcg [id number] exp 2020 Benita Shearer PA-C POINT OF CARE TEST ORDER NAHED Final Result * Qualitative HCG (11/24/2019 12:03 PM CDT) PREG SCREEN-SERUM NEGATIVE 11/24/2019 12:56 PM CDT [facility] 11/24/2019 12:0 3 PM CDT Benita Shearer PA-C LABORATORY Final Re sult [facility] [address] [place] [address], [place] [phone] * (ABNORMAL) COMPREHENSIVE METABOLIC PANEL (11/24/2019 12:03 PM CDT) Pathologist [facility] GLUCOSE 79 70 - 99 MG/DL 11/24/2019 12:40 PM CDT [facility] BUN 10 7 - 18 MG/DL 11/24/2019 12:40 PM CDT [facility] CREATININE S/P/B 0.74 0.55 - 1.02 MG/DL 11/24/2019 12:40 PM CDT [facility] SODIUM S/P/B 139 136 - 145 MMOL/L 11/24/2019 12:40 PM CDT [facility] POTASSIUM S/P/B 4.1 3.5 - 5.1 MMOL/L 11/24/2019 12:40 PM CDT [facility] Comment:SLIGHT HEMOLYSIS, RE SULT MAY BE AFFECTED. CHLORIDE S/P/B 110(H) 100 - 108 MMOL/L 11/24/2019 12:40 PM CDT [facility] CO2 23.5 21 - 32 MMOL/L 11/24/2019 12:40 PM CDT [facility] CALCIUM S/P/B 8.7 8.5 - 10.1 MG/DL 11/24/2019 12:40 PM CDT [facility] BILIRUBIN TOTAL S/P/B 0.3 0.2 - 1.2 MG/DL 11/24/2019 12:40 PM T [facility] Comment: THIS ASSAY IS NOT RECOMMENDED FOR PATIENTS UNDERGOING TREATMENT WITH ELTROMBOPAG DUE TO THE POTENTIAL FOR FALSELY ELEVATED RESULTS. TOTAL PROTEIN S/P/B 8.0 6.4 - 8.2 G/DL 11/24/2019 12:40 PM [facility] ALBUMIN S/P/B 3.5 3.4 - 5.0 G/DL 11/24/2019 12:40 PM [facility] AST 22 15 - 37 U/L 11/24/2019 12:40 PM [facility] Comment:SLIGHT HEMOLYSIS, RE SULT MAY BE AFFECTED. ALT 23 14 - 55 U/L 11/24/2019 12:40 PM [facility] ALKALINE PHOSPHATASE S/P/B 64 50 - 136 U/L 11/24/2019 12:40 PM [facility] ANION GAP 5.5 5 - 15 MMOL/L 11/24/2019 12:40 PM [facility] BUN CREATININE RATIO 13.5 6 - 26 11/24/2019 12:40 PM [facility] A/G RATIO 0.8(L) 1.0 - 2.0 RATIO 11/24/2019 12:40 PM [facility] EGFR NON-AFR. AMER. >90 >90 ML/MIN/1.7 3 M2 11/24/2019 12:40 PM [facility] EGFR AFR. AMER. >90 >90 ML/MIN/1.7 3 M2 11/24/2019 12:40 PM [facility] Comment: NOTE: eGFR is not calculated for patients <18 years of age. This is an estimated GFR (CKD EPI) and should not be used for calculating drug doses. 11/24/2019 12:0 3 PM CDT Benita Shearer PA-C LABORATORY Final Re sult [facility] [address] [place] [address], * (ABNORMAL) CBC W/DIFF AUTOMATED (11/24/2019 12:03 PM CDT) WBC 5.2 4.5 - 11.0 x10'3/uL 11/24/2019 12:23 PM CDT [facility] RBC 4.55 4.20 - 5.40 x10'6/uL 11/24/2019 12:23 PM CDT [facility] HGB 12.5 12.0 - 16.0 G/DL 11/24/2019 12:23 PM CDT [facility] HCT 38.7 38.0 - 48.0 % 11/24/2019 12:23 PM CDT [facility] MCV 85.1 81.0 - 99.0 FL 11/24/2019 12:23 PM CDT [facility] MCH 27.5 27.0 - 31.0 PG 11/24/2019 12:23 PM CDT [facility] MCHC 32.3 32.0 - 36.0 G/DL 11/24/2019 12:23 PM CDT [facility] RDW 13.3 11.5 - 14.5 % 11/24/2019 12:23 PM CDT [facility] PLT 288 130 - 400 x10'3/uL 11/24/2019 12:23 PM CDT [facility] MPV 10.7 9.3 - 12.2 FL 11/24/2019 12:23 PM CDT [facility] DIFFERENTIAL TYPE AUTOMATED DIFFERENTIAL 11/24/2019 12:23 PM CDT [facility] NEUTROPHILS % 38.7 % 11/24/2019 12:23 PM CDT [facility] LYMPHOCYTES % 41.2 % 11/24/2019 12:23 PM CDT [facility] MONOCYTES % 8.6 % 11/24/2019 12:23 PM CDT [facility] EOSINOPHILS 10.2 % 11/24/2019 12:23 PM CDT [facility] BASOPHILS 1.1 % 11/24/2019 12:23 PM CDT [facility] IMMATURE GRANS % 0.2 % 11/24/19 20 12:23 PM CDT [facility] ABS. NEUTROPHILS TOTAL 2.02 1.80 - 7.70 x10'3/uL 11/24/2019 12:23 PM CDT [facility] ABS. LYMPHOCYTES 2.15 1.00 - 4.80 x10'3/uL 11/24/2019 12:23 PM CDT [facility] ABS. MONOCYTES 0.45 0.24 - 0.86 x10'3/uL 11/24/2019 12:23 PM CDT [facility] ABS. EOSINOPHILS 0.53(H) 0.04 - 0.36 x10'3/uL 11/24/2019 12:23 PM CDT [facility] ABS. BASOPHILS 0.06 0.01 - 0.08 x10'3/uL 11/24/2019 12:23 PM CDT [facility] ABS. IMMATURE GRANULOCYTES 0.01 0.00 - 0.49 x10'3/uL 11/24/2019 12:23 PM CDT [facility] 11/24/2019 12:0 3 PM CDT us Benita Shearer PA-C LABORATORY Final Re sult [facility] [address] [place] [address], documented in this encounter Visit Diagnoses Diagnosis Menorrhagia- Primary Excessive or frequent menstruation documented in this encounter Care Teams Buzzle Buffer Relationship Specialty Start Date End Date Ho Medina NP [address] [facility] [address] [place] [address] PCP - General 12/23/16 01/10/24 documented as of this encounter
--- OUTSIDE RECORDS SUMMARY | 2024-06-05 20:31 | XMS_ITS | Encounter Summary ---
Author Organization [facility] Address [address] [place] [address]. [place], [place] [address] [place] [id number] Care Team Providers Care Social Work Program Coordinator Name Role Phone Magy Medina ALUMINUM MOLDING MACHINE OPERATOR Primary Care Provider [phone] Holthaus, Magy ALUMINUM MOLDING MACHINE OPERATOR Primary Care Provider [phone] Holthaus, Magy ALUMINUM MOLDING MACHINE OPERATOR Primary Care Provider Holthaus, Magy ALUMINUM MOLDING MACHINE OPERATOR Primary Care Provider [phone] Holthaus, Magy ALUMINUM MOLDING MACHINE OPERATOR Primary Care Provider [phone] Holthaus, Magy ALUMINUM MOLDING MACHINE OPERATOR Primary Care Provider [phone] Holthaus, Magy ALUMINUM MOLDING MACHINE OPERATOR Primary Care Provider [phone] Holthaus, Magy ALUMINUM MOLDING MACHINE OPERATOR Primary Care Provider Holthaus, Magy ALUMINUM MOLDING MACHINE OPERATOR Primary Care Provider Md Generic Conversion Primary Care Provider Unavailable Md Generic Conversion Primary Care Provider Unavailable Md Generic Conversion Primary Care Provider Unavailable Sondra Marley MD Primary Care Provider [phone] Sondra Marley MD Primary Care Provider [phone] Encounter Details Date Type Department Care Team (Late st Contact Info) Description 10/28/2008 Emergency [facility] Emergency Room [place], [place] [id number] Mari Zhang MD [address], [place] [address] Social History Tobacco Use Types Packs/Day Years [...] on filedocumented in this encounter Care Teams Social Work Program Coordinator Relationship Specialty Start Date End Date Magy Medina NP [address] [place] [address] PCP - General 12/23/16 01/10/24 Magy Medina NP [address] [place] [address] PCP - General 12/05/16 12/22/16 Magy Medina NP [address] [place], [place] [address] PCP - General 11/27/16 12/04/16 Magy Medina NP [address] [place], [place] [address] PCP - General 11/20/16 11/26/16 Magy Medina NP [address] [place], [place] [address] PCP - General 11/15/16 11/19/16 Magy Medina NP [address] [place], [place] [address] PCP - General 10/31/16 11/14/16 Magy Medina NP [address] [place] [address] PCP - General 10/29/16 10/30/16 Magy Medina NP [address] [place] [address] PCP - General 10/24/16 10/28/16 Magy Medina NP [address] [place] [address] PCP - General 10/22/16 10/23/16 , Generic Conversion, PCP - General 10/14/16 Md, Generic Conversion, PCP - General 01/28/16 7 , Generic Conversion, PCP - General 09/21/15 Sondra Marley MD [address] [place] [address] PCP - General 09/05/12 09/20/15 Sondra Marley MD [address] [place] [address] PCP - General 02/14/11 09/04/12 documented as of this encounter
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
--- OUTSIDE RECORDS SUMMARY | 2024-06-05 20:31 | XMS_ITS | Encounter Summary ---
Author Organization [facility] Address [address] [place] [address]. [place], [place] [address] [place] [address] Care Team Providers Care Allied Health Professional Name Role Phone Magy Medina CONTENT PUBLISHER Primary Care Provider [phone] Holthaus, Magy CONTENT PUBLISHER Primary Care Provider [phone] Holthaus, Magy CONTENT PUBLISHER Primary Care Provider [phone] Holthaus, Magy CONTENT PUBLISHER Primary Care Provider [phone] Holthaus, Magy CONTENT PUBLISHER Primary Care Provider [phone] Holthaus, Magy CONTENT PUBLISHER Primary Care Provider [phone] Holthaus, Magy CONTENT PUBLISHER Primary Care Provider [phone] Holthaus, Magy CONTENT PUBLISHER Primary Care Provider [phone] Holthaus, Magy CONTENT PUBLISHER Primary Care Provider [phone] Md Generic Conversion Primary Care Provider Unavailable Md Generic Conversion Primary Care Provider Unavailable Md Generic Conversion Primary Care Provider Unavailable Sondra Marley MD Primary Care Provider [phone] Sondra Marley MD Primary Care Provider [phone] Encounter Details Date Type Department Care Team (Late st Contact Info) Description 08/19/[address] [facility] [address] [place], [place] [id number] Mykel Neely MD Social History Tobacco Use [...] on filedocumented in this encounter Care Teams Allied Health Professional Relationship Specialty Start Date End Date Magy Medina NP [address] [place] [address] PCP - General 12/23/16 01/10/24 Magy Medina NP [address] [place], [place] [address] PCP - General 12/05/16 12/22/16 Magy Medina NP [address] [place], [place] [address] PCP - General 11/27/16 12/04/16 Magy Medina NP [address] [place], [place] [address] PCP - General 11/20/16 11/26/16 Magy Medina NP [address] [place], [place] [address] PCP - General 11/15/16 11/19/16 Magy Medina NP [address] [place], [place] [address] PCP - General 10/31/16 11/14/16 Magy Medina NP [address] [place] [address] PCP - General 10/29/16 10/30/16 Magy Medina NP [address] [facility] [address] [place] [address] PCP - General 10/24/16 10/28/16 Magy Medina NP [address] [facility] [address] [place] [address] PCP - General 10/22/16 10/23/16 , Generic Conversion, PCP - General 10/14/16 , Generic Conversion, PCP - General 01/28/16 Md, Generic Conversion, PCP - General 09/21/15 Sondra Marley MD [address] [place] [address] PCP - General 09/05/12 09/20/15 Sondra Marley MD [address] [place] [address] PCP - General 02/14/11 09/04/12 documented as of this encounter
--- OUTSIDE RECORDS SUMMARY | 2024-06-05 20:31 | XMS_ITS | Encounter Summary ---
Author Organization [facility] Address [address] [place] [address]. [place], [place] [address] [place] [address] Care Team Providers Care Cigar Packer And Grader Name Role Phone Magy Medina SIGNAL SUPERVISOR Primary Care Provider [phone] Holthaus, Magy SIGNAL SUPERVISOR Primary Care Provider [phone] Holthaus, Magy SIGNAL SUPERVISOR Primary Care Provider [phone] Holthaus, Magy SIGNAL SUPERVISOR Primary Care Provider [phone] Holthaus, Magy SIGNAL SUPERVISOR Primary Care Provider [phone] Holthaus, Magy SIGNAL SUPERVISOR Primary Care Provider [phone] Holthaus, Magy SIGNAL SUPERVISOR Primary Care Provider [phone] Holthaus, Magy SIGNAL SUPERVISOR Primary Care Provider [phone] Holthaus, Magy SIGNAL SUPERVISOR Primary Care Provider [phone] Md Generic Misha MEEK Primary Care Provider Unavailable Md Generic Misha MEEK Primary Care Provider Unavailable Md Generic Misha MEEK Primary Care Provider Unavailable Sondra Marley MD Primary Care Provider [phone] Sondra Marley MD Primary Care Provider [phone] Encounter Details Date Type Department Care Team (Late st Contact Info) Description 09/08/2009 Emergency [facility] [place] [address] Derrek Meek MD Social History Tobacco Use [...] on filedocumented in this encounter Care Teams Cigar Packer And Grader Relationship Specialty Start Date End Date Magy Medina NP [address] [place] [address] PCP - General 12/23/16 01/10/24 Magy Medina NP [address] [place], [place] [address] PCP - General 12/05/16 12/22/16 Magy Medina NP [address] [place], [place] [address] PCP - General 11/27/16 12/04/16 Magy Medina NP [address] [place], [place] [address] PCP - General 11/20/16 11/26/16 Magy Medina NP [address] [place], [place] [address] PCP - General 11/15/16 11/19/16 Magy Medina NP [address] [place], [place] [address] PCP - General 10/31/16 11/14/16 Magy Medina NP [address] [place] [address] PCP - General 10/29/16 10/30/16 Magy Medina NP [address] [facility] [address] [place] [address] PCP - General 10/24/16 10/28/16 Magy Medina NP [address] [facility] [address] [place] [address] PCP - General 10/22/16 10/23/16 , Generic Conversion, PCP - General 10/14/16 , Generic Conversion, PCP - General 01/28/16 Md, Generic Conversion, PCP - General 09/21/15 Sondra Marley MD [address] [place] [address] PCP - General 09/05/12 09/20/15 Sondra Marley MD [address] [place] [address] PCP - General 02/14/11 09/04/12 documented as of this encounter
--- OUTSIDE RECORDS SUMMARY | 2024-06-05 20:31 | XMS_ITS | Encounter Summary ---
Author Organization [facility] Address [address] [place] [address]. [place], [place] [address] [place] [address] Care Team Providers Care Veterinarian Poultry Name Role Phone Magy Medina NP Primary Care Provider [phone] Encounter Details Date Type Department Care Team (Latest Contact Info) Description 12/05/2022 Travel Social History Tobacco Use Types Packs/Day [...] on filedocumented in this encounter Care Teams Veterinarian Poultry Relationship Specialty Start Date End Date Magy Medina NP [address] [facility] [address] [place] [address] PCP - General 12/23/16 01/10/24 documented as of this encounter
--- OUTSIDE RECORDS SUMMARY | 2024-06-05 20:31 | XMS_ITS | Encounter Summary ---
Author Organization [facility] Address [address] [place] [address]. [place] [address] [place] [address] Care Team Providers Care Personal Lines Insurance Advisor Name Role Phone Magy Medina NP Primary Care Provider [phone] Encounter Details Date Type Department Care Team (Late st Contact Info) Description 04/12/2017 Scan [facility] CONVERSION [place], [place] [phone] , Generic Conversion, Social History Tobacco Use Types Packs/Day Years [...] on filedocumented in this encounter Care Teams Personal Lines Insurance Advisor Relationship Specialty Start Date End Date Magy Medina NP [address] [facility] [address] [place], [place] [phone] PCP - General 12/23/16 01/10/24 documented as of this encounter
--- OUTSIDE RECORDS SUMMARY | 2024-06-05 20:31 | XMS_ITS | Encounter Summary ---
Author Organization [facility] Address [address] [place] [address]. [place] [address] [place] [address] Care Team Providers Care Entry Level Account Manager Name Role Phone Edgardo Medinay STOCKROOM ASSOCIATE Primary Care Provider [phone] Encounter Details Date Type Department Care Team (Late st Contact Info) Description 03/02/2017 Abstract [facility] [address] [place] [address] Jia Kaur NP Social History Tobacco Use Types Packs/Day Years [...] Procedure Name Priority Date/Time Associated Diagnosis Comments URINE BACTERIA CULTURE Routine 03/02/2017 2:45 PM CDT URINALYSIS AUTO DIP STAT 03/02/2017 2 :29 PM CDT documented in this encounter Results * CULTURE URINE (03/02/2017 2:45 PM CDT) SPEC DESCRIPTION URINE CLEAN CATCH 03/02/2017 2:51 PM CDT [facility] SPECIAL REQUESTS NO SPECIAL REQUEST 03/02/2017 2:51 PM CDT [facility] CULTURE RESULT POLYMICROBIAL GROWTH CONSISTENT WITH NORMAL GENITAL TONY. ?? SUSCEPTIBILITIES NOT ROUTINELY PERFORMED. 03/04/2017 8:43 AM CDT [facility] URINE SPECIMEN OBTAINED BY CLEAN CATCH PROCEDURE / Unknown 03/02/2017 2:45 PM CDT 03/02/2017 2:50 PM CDT us Generic Conversion Md MEEK MICROBIOLOGY - GENERAL ORDERABLES Final Result [facility] [place] [address], * (ABNORMAL) URINALYSIS AUTO DIP (03/02/2017 2:29 PM CDT) SPECIMEN TYPE URINE CLEAN CATCH 03/02/2017 2:29 PM CDT [facility] COLOR (U) YELLOW 03/02/2017 2:54 PM CDT [facility] Comment:STAT TRANSPARENCY CLOUDY 03/02/2017 2:54 PM CDT [facility] Comment:STAT SPECIFIC GRAVITY (U) 1.025 1.001 - 1.030 03/02/2017 2:54 PM CDT [facility] Comment:STAT U PH 8.5 5.0 - 9.0 03/02/2017 2:54 PM CDT [facility] Comment:STAT LEUKOCYTES (U) SMALL(A) NEGATIVE 03/02/2017 2:54 PM CDT [facility] Comment:STAT NITRITES NEGATIVE NEGATIVE 03/02/2017 2:54 PM CDT [facility] Comment:STAT PROTEIN (U) NEGATIVE <30 MG/DL 03/02/2017 2:54 PM CDT [facility] Comment:STAT URINE GLUCOSE NEGATIVE NEGATIVE MG/DL 03/02/2017 2:54 PM CDT [facility] Comment:STAT KETONES MG/DL (U) NEGATIVE NEGATIVE MG/DL 03/02/2017 2:54 PM CDT [facility] Comment:STAT UROBILINOGEN NEGATIVE NEGATIVE MG/DL 03/02/2017 2:54 PM CDT [facility] Comment:STAT BILIRUBIN (U) NEGATIVE NEGATIVE MG/DL 03/02/2017 2:54 PM CDT [facility] Comment:STAT BLOOD (U) NEGATIVE NEGATIVE 03/02/2017 2:54 PM CDT [facility] Comment:STAT CULTURE & SENSITIVITY INDICATED? SPECIMEN SETUP FOR CULTURE 03/02/2017 2:54 PM CDT [facility] Comment:STAT 03/02/2017 2:29 PM CDT 03/02/2017 2:46 PM CDT us Generic Conversion Md MEEK URINE ORDERABLES Final Result [facility] [place] [address], documented in this encounter Visit Diagnoses Diagnosis Urinary tract infection Urinary tract infection, site not specified documented in this encounter Care Teams Entry Level Account Manager Relationship Specialty Start Date End Date Magy Medina NP [address] [facility] [address] [place] [address] PCP - General 12/23/16 01/10/24 documented as of this encounter
--- OUTSIDE RECORDS SUMMARY | 2024-06-05 20:31 | XMS_ITS | Encounter Summary ---
Author Organization [facility] Address [address] [place] [address]. [place], [place] [address] [place] [address] Care Team Providers Care Professional Fighter Name Role Phone Magy Medina DESIGN CHIEF Primary Care Provider [phone] Encounter Details Date Type Department Care Team (Latest Contact Info) Description 08/02/2022 Travel Social History Tobacco Use Types Packs/Day [...] Coronavirus/COVID-19? No / Unsure 08/02/2022 9:01 AM THEATRE MANAGER documented as of this encounter Plan of Treatment Not on file documented as of this encounter Visit Diagnoses Not on filedocumented in this encounter Care Teams Professional Fighter Relationship Specialty Start Date End Date Magy Medina NP [address] [facility] [address] [place] [address] PCP - General 12/23/16 01/10/24 documented as of this encounter
--- OUTSIDE RECORDS SUMMARY | 2024-06-05 20:31 | XMS_ITS | Encounter Summary ---
Author Organization [facility] Address [address] [place] [address]. [place] [address] [place] [address] Care Team Providers Care Service Promoter Salesperson Name Role Phone Adam Magy GARIBAY Primary Care Provider [phone] Reason for Visit * Reason Comments Chills Body Aches Encounter Details Date Type Department Care Team (Late st Contact Info) Description 12/29/2020 7:12 AM CDT - 12/29/2020 10:00 AM CDT Emergency Health system [place] [address] Katerina Duncan MD [address] [place], [place] [id number] Chills; Body Aches Discharge Disposition: Home or Self Care (Routine [...] Sign Reading Time Taken Comments Blood Pressure 112/72 12/29/2020 9:56 AM CDT Pulse 88 12/29/2020 9:56 AM CDT Temperature 36.6 ??C (97.9 ??F) 12/29/2020 9:56 AM CD T Respiratory Rate 16 12/29/2020 9:56 AM CDT Oxygen Saturation 97% 12/29/2020 9:56 AM CDT Inhaled Oxygen Concentration - - Weight 81.6 kg (180 lb) 12/29/2020 6:20 AM CDT Height 157.5 cm (5' 2 ) 12/29/2020 6:20 AM CDT Body Mass Index 32.92 12/29/2020 6:20 AM CDT documented in this encounter Discharge Instructions * Discharge Instructions* Katerina Duncan MD - 12/29/2020 9:37 AM CDT You can take tylenol for body aches, headache and fever. You can take immodium as needed for diarrhea. Please continue to hydrated yourself. Please return to the ED for difficulty breathing, shortness of breath, chest pain, worsening cough,dehydration, confusion, or any other new, worsening or concerning symptoms. Please wear your mask and quarantine. * Attachments The following attachments cannot be sent through Care Everywhere. * Coronavirus Disease 2019 (COVID-19) Discharge Instructions (Iraqi) documented in this encounter Medications at Time [...] needed for Wheezing. 30 g 12/29/2020 01/26/2021 methocarbamol (ROBAXIN-750) 750 MG Tab Take 1 tablet (750 mg total) by mouth 4 (four) times daily as needed. 20 tablet 12/17/2017 05/22/2023 documented as of this encounter ED Notes * Madhuri Lubin RN - 12/29/2020 9:57 AM CDT Discharge instructions given to pt, all questions answered, and pt verbalized understanding. Pt Aox4. VS stable. Pt ambulated from ER to exit without difficulty. Gait steady and even. * Madhuri Lubin RN - 12/29/2020 8:36 AM CDT XR to bedside. * Madhuri Lubin RN - 12/29/2020 8:15 AM CDT ERMD to bedside at this time. * Katerina Duncan MD - 12/29/2020 8:00 AM CDT Chief Complaint Chief Complaint Patient presents with ??? Chills ??? Body Aches History of Present Illness The pt is a 30 yo female who presents with 10 days of malaise, cough, diarrhea, and fatigue. She more recently lost her sense of taste and smell. She denies significant shortness of breath or chest pain. She had not received any Covid vaccinations. Medical History ALLERGIES: Allergies Allergen Reactions ??? [...] hours as needed for Pain. 12/17/17 Federica Faith, [place] methocarbamol (ROBAXIN-750) 750 MG Tab Take 1 [...] Systems Review of Systems Constitutional: Positive for activity change, appetite change, chills, fatigue and fever. HENT: Positive for congestion and sore throat. Eyes: Negative for pain and visual disturbance. Respiratory: Positive for cough. Negative for shortness of breath. Cardiovascular: Negative for chest pain and palpitations. Gastrointestinal: Positive for diarrhea. Negative for abdominal pain and vomiting. Genitourinary: Negative for difficulty urinating and dysuria. Musculoskeletal: Negative for back pain and neck pain. Skin: Negative for rash and wound. Neurological: Positive for headaches. Negative for syncope. Psychiatric/Behavioral: Negative for confusion and suicidal ideas. All other systems reviewed and are negative. Physical Exam Filed Vitals: 12/29/20 0620 BP: 114/76 Pulse: 93 Resp: 16 Temp: 97 ??F (36.1 ??C) TempSrc: Temporal SpO2: 97% Weight: 81.6 kg (180 lb) Height: 5' 2 (1.575 m) Physical Exam Vitals and nursing note reviewed. Constitutional: Appearance: Normal appearance. HENT: Head: Normocephalic and atraumatic. Nose: Nose normal. Mouth/Throat: Mouth: Mucous membranes are moist. Eyes: Conjunctiva/sclera: Conjunctivae normal. Cardiovascular: Rate and Rhythm: Normal rate and regular rhythm. Pulses: Normal pulses. Heart sounds: Normal heart sounds. Pulmonary: Effort: Pulmonary effort is normal. Breath sounds: Normal breath sounds. Abdominal: General: Bowel sounds are normal. Palpations: Abdomen is soft. Tenderness: There is no abdominal tenderness. Musculoskeletal: General: Normal range of motion. Cervical back: Normal range of motion and neck supple. Skin: General: Skin is warm and dry. Capillary Refill: Capillary refill takes less than 2 seconds. Neurological: General: No focal deficit present. Mental Status: She is alert and oriented to person, place, and time. Psychiatric: Mood and Affect: Mood normal. Behavior: Behavior normal. Diagnostic Studies / Procedures ELECTROCARDIOGRAMS: No results found for this visit on 12/29/20. LABORATORY STUDIES: Results for orders placed or performed during the hospital encounter of 12/29/20 CBC W/DIFF AUTOMATED Result Value Ref Range WBC 3.0 (L) 4.5 - 11.0 x10'3/uL RBC 5.13 4.20 - 5.40 x10'6/uL HGB 14.1 12.0 - 16.0 G/DL HCT 44.2 38.0 - 48.0 % MCV 86.2 80.0 - 94.0 FL MCH 27.5 27.0 - 31.0 PG MCHC 31.9 (L) 32.0 - 36.0 G/DL RDW 12.7 11.5 - 14.5 % PLT 257 130 - 400 x10'3/uL MPV 10.2 9.3 - 12.2 FL DIFFERENTIAL TYPE AUTOMATED DIFFERENTIAL NEUTROPHILS 41.2 % LYMPHOCYTES 47.0 % MONOCYTES 10.1 % EOSINOPHILS 1.4 % BASOPHILS 0.3 % IMMATURE GRANS 0.0 % ABS. NEUTROPHILS TOTAL 1.22 (L) 1.80 - 7.70 x10'3/uL ABS. LYMPHOCYTES 1.39 1.00 - 4.80 x10'3/uL ABS. MONOCYTES 0.30 0.24 - 0.86 x10'3/uL ABS. EOSINOPHILS 0.04 0.04 - 0.36 x10'3/uL ABS. BASOPHILS 0.01 0.01 - 0.08 x10'3/uL ABS. IMMATURE GRANULOCYTES 0.00 0.00 - 0.49 x10'3/uL IMAGING STUDIES XR CHEST PORTABLE Final Result by User, [id number] (12/29 850) Examination: Chest x-ray 1 view Exam date/time: 12/29/2020 8:29 AM Reason For Exam: Cough, fever, COVID symptoms. Comparison: Chest radiograph 01/28/2016 and 09/21/2015. Technique: Upright AP portable view of the chest demonstrated. Findings: The cardiomediastinal silhouette is normal in size. Pulmonary vasculature is normally distributed. The lungs are clear of active opacities. There is no sizable pleural effusion or pneumothorax. There is dextroscoliosis of the thoracolumbar spine, appearing similar to the prior examination. IMPRESSION: No acute cardiopulmonary abnormality. Dextroscoliosis, appearing similar to the prior exam. Referred By: KATERINA DUNCAN Interpreted By: Tomas Sánchez DO, 12/29/2020 8:48 AM ED Course / Medical Decision Making MDM Number of Diagnoses or Management Options COVID-19 Diagnosis management comments: Maintaining SaO2 on RA. CXR without infiltrates. Plan for symptomatic management of Covid 19 infection at home with otupt f/u, and return to the ED for worsening symptoms. Clinical Impression COVID-19 (Primary) Disposition: Discharge Katerina Duncan MD 12/30/20 1216 * Madhuri Lubin RN - 12/29/2020 7:15 AM CDT Pt ambulated to Triage 2 without difficulty. Gait steady and even. Pt reports body aches, nausea, and diarrhea x1 week and my clothes feel like knives and my scalp hurts . Pt reports not being able to eat x1 week and denies vomiting. Pt Aox4. * Joann Victoria RN - 12/29/2020 6:19 AM CDT To triage with complaint of chills and body aches for the last week. Denies any fevers or cough. + sinuses clogged. documented in this encounter Plan of Treatment Not on file documented as of this encounter Procedures Procedure Name Priority Date/Time Associated Diagnosis Comments XR CHEST PORTABLE STAT 12/29/2020 8:4 3 AM CDT RESPIRATORY PCR PANEL 2 STAT 12/29/2020 7:43 AM CDT COMPREHENSIVE METABOLIC PANEL STAT 12/29/2020 7:29 AM CDT CBC W/DIFF AUTOMATED STAT 12/29/2020 7:29 AM CDT documented in this encounter Results * XR CHEST PORTABLE (12/29/2020 8:43 AM CDT) Anatomical Region Laterality Modality Chest Radiographic Ligia ging 12/29/2020 8:48 AM CDT Impressions 12/29/2020 8:50 AM CDT IMPRESSION: No acute cardiopulmonary abnormality. Dextroscoliosis, appearing similar to the prior exam. Referred By: KATERINA DUNCAN Interpreted By: Tomas Sánchez DO, 12/29/2020 8:48 AM Narrative 12/29/2020 8:50 AM CDT Examination: Chest x-ray 1 view Exam date/time: 12/29/2020 8:29 AM Reason For Exam: ??Cough, fever, COVID symptoms. ?? Comparison: Chest radiograph 01/28/2016 and 09/21/2015. Technique: Upright AP portable view of the chest demonstrated. Findings: ?? The cardiomediastinal silhouette is normal in size. Pulmonary vasculature is normally distributed. The lungs are clear of active opacities. There is no sizable pleural effusion or pneumothorax. There is dextroscoliosis of the thoracolumbar spine, appearing similar to the prior examination. Procedure Note Tomas Sánchez DO - 12/29/2020 Examination: Chest x-ray 1 view Exam date/time: 12/29/2020 8:29 AM Reason For Exam: Cough, fever, COVID symptoms. Comparison: Chest radiograph 01/28/2016 and 09/21/2015. Technique: Upright AP portable view of the chest demonstrated. Findings: The cardiomediastinal silhouette is normal in size. Pulmonary vasculatureis normally distributed. The lungs are clear of active opacities. There isno sizable pleural effusion or pneumothorax. There is dextroscoliosis ofthe thoracolumbar spine, appearing similar to the prior examination. IMPRESSION: No acute cardiopulmonary abnormality. Dextroscoliosis, appearing similarto the prior exam. Referred By: KATERINA DUNCAN Interpreted By: Tomas Sánchez DO, 12/29/2020 8:48 AM us Katerina Duncan MD GENERAL IMAGING Final Res ult * (ABNORMAL) RESPIRATORY PCR PANEL 2 (12/29/2020 7:43 AM CDT) ADENOVIRUS PCR (RESP) NOT DETECTED NOT DETECTED 12/29/2020 9:05 AM CDT [facility] CORONAVIRUS 229E PCR (RESP) NOT DETECTED NOT DETECTED 12/29/2020 9:05 AM CDT [facility] CORONAVIRUS HKU1 PCR (RESP) NOT DETECTED NOT DETECTED 12/29/2020 9:05 AM CDT [facility] CORONAVIRUS NL63 PCR (RESP) NOT DETECTED NOT DETECTED 12/29/2020 9:05 AM CDT [facility] CORONAVIRUS OC43 PCR (RESP) NOT DETECTED NOT DETECTED 12/29/2020 9:05 AM CDT [facility] METAPNEUMOVIRUS PCR (RESP) NOT DETECTED NOT DETECTED 12/29/2020 9:05 AM CDT [facility] RHINOVIRUS/ENTEROV IRUS PCR (RESP) NOT DETECTED NOT DETECTED 12/29/2020 9:05 AM CDT [facility] INFLUENZA A PCR (RESP) NOT DETECTED NOT DETECTED 12/29/2020 9:05 AM CDT [facility] INFLUENZA B PCR (RESP) NOT DETECTED NOT DETECTED 12/29/2020 9:05 AM CDT [facility] PARAINFLUENZA 1 PCR (RESP) NOT DETECTED NOT DETECTED 12/29/2020 9:05 AM CDT [facility] PARAINFLUENZA 2 PCR (RESP) NOT DETECTED NOT DETECTED 12/29/2020 9:05 AM CDT [facility] PARAINFLUENZA 3 PCR (RESP) NOT DETECTED NOT DETECTED 12/29/2020 9:05 AM CDT [facility] PARAINFLUENZA 4 PCR (RESP) NOT DETECTED NOT DETECTED 12/29/2020 9:05 AM CDT [facility] RSV PCR (RESP) NOT DETECTED NOT DETECTED 12/29/2020 9:05 AM CDT [facility] B PARAPERTUSIS PCR (RESP) NOT DETECTED NOT DETECTED 12/29/2020 9:05 AM CDT [facility] BORDETELLA PERTUSSIS PCR (RESP) NOT DETECTED NOT DETECTED 12/29/2020 9:05 AM CDT [facility] CHLAMYDOPHILA PNEUMONIAE PCR (RESP) NOT DETECTED NOT DETECTED 12/29/2020 9:05 AM CDT [facility] MYCOPLASMA PNEUMONIAE PCR (RESP) NOT DETECTED NOT DETECTED 12/29/2020 9:05 AM CDT [facility] CORONAVIRUS SARS COV 2 PCR (RESP) DETECTED (AA) NOT DETECTED 12/29/2020 9:08 AM CDT [facility] FIRST TEST YES 12/29/2020 7:43 AM CDT [facility] EMPLOYED IN HEALTHCARE NO 12/29/2020 7:43 AM CDT [facility] SYMPTOMATIC DEFINED BY CDC YES 12/29/2020 7:43 AM CDT [facility] DATE OF SYMPTOM ONSET [id number] 12/29/2020 7:43 AM CDT [facility] HOSPITALIZATION STATUS NO 12/29/2020 7:43 AM CDT [facility] PATIENT IN ICU UNKNOWN 12/29/2020 7:55 AM CDT [facility] RESIDENT OF [facility] NO 12/29/2020 7:43 AM CDT [facility] NOT 12/29/2020 7:43 AM CDT [facility] NASOPHARYNGEAL SWAB / Unknown 12/29/2020 7:43 AM CDT us Katerina Duncan MD MICROBIOLOGY - GENERAL OR DERABLES Final Result [facility] [address] [place] [address], * (ABNORMAL) COMPREHENSIVE METABOLIC PANEL (12/29/2020 7:29 AM CDT) GLUCOSE 89 70 - 99 MG/DL 12/29/2020 8:28 AM CDT [facility] BUN 6(L) 7 - 18 MG/DL 12/29/2020 8:28 AM CDT [facility] CREATININE S/P/B 0.72 0.55 - 1.02 MG/DL 12/29/2020 8:28 AM CDT [facility] SODIUM S/P/B 137 136 - 145 MMOL/L 12/29/2020 8:28 AM CDT [facility] POTASSIUM S/P/B 3.9 3.5 - 5.1 MMOL/L 12/29/2020 8:28 AM CDT [facility] Comment:SLIGHT HEMOLYSIS, RE SULT MAY BE AFFECTED. CHLORIDE S/P/B 107 100 - 108 MMOL/L 12/29/2020 8:28 AM CDT [facility] CO2 24.7 21 - 32 MMOL/L 12/29/2020 8:28 AM CDT [facility] CALCIUM S/P/B 8.3(L) 8.5 - 10.1 MG/DL 12/29/2020 8:28 AM CDT [facility] BILIRUBIN TOTAL S/P/B 0.3 0.2 - 1.2 MG/DL 12/29/2020 8:28 AM CDT [facility] Comment: THIS ASSAY IS NOT RECOMMENDED FOR PATIENTS UNDERGOING TREATMENT WITH ELTROMBOPAG DUE TO THE POTENTIAL FOR FALSELY ELEVATED RESULTS. TOTAL PROTEIN S/P/B 7.8 6.4 - 8.2 G/DL 12/29/2020 8:28 AM CDT [facility] ALBUMIN S/P/B 3.7 3.4 - 5.0 G/DL 12/29/2020 8:28 AM T [facility] AST 25 15 - 37 U/L 12/29/2020 8:28 AM T [facility] Comment:SLIGHT HEMOLYSIS, RE SULT MAY BE AFFECTED. ALT 23 14 - 55 U/L 12/29/2020 8:28 AM T [facility] ALKALINE PHOSPHATASE S/P/B 63 50 - 136 U/L 12/29/2020 8:28 AM T [facility] ANION GAP 5.3 5 - 15 MMOL/L 12/29/2020 8:28 AM T [facility] BUN CREATININE RATIO 8.3 6 - 26 12/29/2020 8:28 AM T [facility] A/G RATIO 0.9(L) 1.0 - 2.0 RATIO 12/29/2020 8:28 AM T [facility] EGFR NON-AFR. AMER. >90 >90 ML/MIN/1.7 3 M2 12/29/2020 8:28 AM CDT [facility] EGFR AFR. AMER. >90 >90 ML/MIN/1.7 3 M2 12/29/2020 8:28 AM CDT [facility] Comment: NOTE: eGFR is not calculated for patients <18 years of age. This is an estimated GFR (CKD EPI) and should not be used for calculating drug doses. 12/29/2020 7:29 AM CDT us Katerina Duncan MD LABORATORY Final Res ult [facility] [address] [place] [address], [place] [phone] * (ABNORMAL) CBC W/DIFF AUTOMATED (12/29/2020 7:29 AM CDT) WBC 3.0(L) 4.5 - 11.0 x10'3/uL 12/29/2020 7:54 AM CDT [facility] RBC 5.13 4.20 - 5.40 x10'6/uL 12/29/2020 7:54 AM CDT [facility] HGB 14.1 12.0 - 16.0 G/DL 12/29/2020 7:54 AM CDT [facility] HCT 44.2 38.0 - 48.0 % 12/29/2020 7:54 AM CDT [facility] MCV 86.2 80.0 - 94.0 FL 12/29/2020 7:54 AM CDT [facility] MCH 27.5 27.0 - 31.0 PG 12/29/2020 7:54 AM CDT [facility] MCHC 31.9(L) 32.0 - 36.0 G/DL 12/29/2020 7:54 AM CDT [facility] RDW 12.7 11.5 - 14.5 % 12/29/2020 7:54 AM CDT [facility] PLT 257 130 - 400 x10'3/uL 12/29/2020 7:54 AM CDT [facility] MPV 10.2 9.3 - 12.2 FL 12/29/2020 7:54 AM CDT [facility] DIFFERENTIAL TYPE AUTOMATED DIFFERENTIAL 12/29/2020 7:54 AM CDT [facility] NEUTROPHILS % 41.2 % 12/29/2020 7:54 AM CDT [facility] LYMPHOCYTES % 47.0 % 12/29/2020 7:54 AM CDT [facility] MONOCYTES % 10.1 % 12/29/2020 7:54 AM CDT [facility] EOSINOPHILS 1.4 % 12/29/2020 7:54 AM CDT [facility] BASOPHILS 0.3 % 12/29/2020 7:54 AM CDT [facility] IMMATURE GRANS % 0.0 % 12/30/19 7:54 AM CDT [facility] ABS. NEUTROPHILS TOTAL 1.22(L) 1.80 - 7.70 x10'3/uL 12/29/2020 7:54 AM CDT [facility] ABS. LYMPHOCYTES 1.39 1.00 - 4.80 x10'3/uL 12/29/2020 7:54 AM CDT [facility] ABS. MONOCYTES 0.30 0.24 - 0.86 x10'3/uL 12/29/2020 7:54 AM CDT [facility] ABS. EOSINOPHILS 0.04 0.04 - 0.36 x10'3/uL 12/29/2020 7:54 AM CDT [facility] ABS. BASOPHILS 0.01 0.01 - 0.08 x10'3/uL 12/29/2020 7:54 AM CDT [facility] ABS. IMMATURE GRANULOCYTES 0.00 0.00 - 0.49 x10'3/uL 12/29/2020 7:54 AM CDT [facility] 12/29/2020 7:29 AM CDT us Katerina Duncan MD LABORATORY Final Res ult [facility] [address] [place] [address], documented in this encounter Visit Diagnoses Diagnosis COVID-19- Primary documented in this encounter Additional Health Concerns Infection Onset Date Last Indicated Resolved Time COVID-19 Rule Out 12/29/2020 12/29/2020 01/05/2021 12:35 AM CDT documented as of this encounter Care Teams Service Promoter Salesperson Relationship Specialty Start Date End Date Magy Medina NP [address] [facility] [address] [place] [address] PCP - General 12/23/16 01/10/24 documented as of this encounter
--- OUTSIDE RECORDS SUMMARY | 2024-06-05 20:31 | XMS_ITS | Encounter Summary ---
Author Organization [facility] Address [address] [place] [address]. [place], [place] [id number] [place] [id number] Care Team Providers Care Health Researcher Name Role Phone Magy Medina SPECIAL EDUCATION SUPERVISOR Primary Care Provider [phone] Holthaus, Magy SPECIAL EDUCATION SUPERVISOR Primary Care Provider [phone] Holthaus, Magy SPECIAL EDUCATION SUPERVISOR Primary Care Provider [phone] Holthaus, Magy SPECIAL EDUCATION SUPERVISOR Primary Care Provider [phone] Holthaus, Magy SPECIAL EDUCATION SUPERVISOR Primary Care Provider [phone] Holthaus, Magy SPECIAL EDUCATION SUPERVISOR Primary Care Provider [phone] Holthaus, Magy SPECIAL EDUCATION SUPERVISOR Primary Care Provider [phone] Holthaus, Magy SPECIAL EDUCATION SUPERVISOR Primary Care Provider [phone] Holthaus, Magy SPECIAL EDUCATION SUPERVISOR Primary Care Provider Md Generic Conversion Primary Care Provider Unavailable Md Generic Conversion Primary Care Provider Unavailable Md Generic Conversion Primary Care Provider Unavailable Sondra Marley MD Primary Care Provider [phone] Sondra Marley MD Primary Care Provider [phone] Encounter Details Date Type Department Care Team (Late st Contact Info) Description 05/01/2005 Abstract [place] [address] Md Generic ConversionMD Social History Tobacco Use [...] on filedocumented in this encounter Care Teams Health Researcher Relationship Specialty Start Date End Date Magy Medina NP [address] [place], [place] [address] PCP - General 12/23/16 01/10/24 Magy Medina NP [address] [place], [place] [address] PCP - General 12/05/16 12/22/16 Magy Medina NP [address] [place], [place] [address] PCP - General 11/27/16 12/04/16 Magy Medina NP [address] [place], [place] [id number] PCP - General 11/20/16 11/26/16 Magy Medina NP [address] [place], [place] [address] PCP - General 11/15/16 11/19/16 Magy Medina NP [address] [place], [place] [id number] PCP - General 10/31/16 11/14/16 Magy Medina NP [address] [place], [place] [address] PCP - General 10/29/16 10/30/16 Magy Medina NP [address] [facility] [address] [place] [address] PCP - General 10/24/16 10/28/16 Magy Medina NP [address] [facility] [address] [place] [address] PCP - General 10/22/16 10/23/16 , Generic Conversion, PCP - General 10/14/16 Md, Generic Conversion, PCP - General 01/28/16 7 Md, Generic Conversion, PCP - General 09/21/15 Sondra Marley MD [address] [place] [address] PCP - General 09/05/12 09/20/15 Sondra Marley MD [address] [place] [address] PCP - General 02/14/11 09/04/12 documented as of this encounter
--- OUTSIDE RECORDS SUMMARY | 2024-06-05 20:40 | XMS_ITS | Encounter Summary ---
Author Organization [facility] Healthcare Address [address] [place] [address] Care Team Providers Care Program Manager Name Role Phone Magy Medina NP Primary Care Provider [phone] Reason for Referral * Diagnostic Imaging (Routine) - Closed Specialty Diagnoses / Procedures Referred By Contac t Referred To Contact Diagnoses Scoliosis (and kyphoscoliosis), idiopathic Procedures XR Scoliosis 2 or 3 Views Supa Peña MD [facility] [address] [address] Phone: tel: fax: [address] [phone] Referral ID Status Reason Start Date Expiration Date Visits Re quested Visits Authorized [id number] Closed 11/05/2020 12/05/2021 1 1 Encounter Details Date Type Department Care Team (Late st Contact Info) Description 11/05/2020 Orders Only [facility] [address] [facility] 4th Floor [address] [place] [address] Supa Peña MD [facility] [address] [address] Scoliosis (and kyphoscoliosis), idiopathic (Primary Dx) Social History Tobacco Use Types Packs/Day Years Used Date Smoking Tobacco: Never Assessed Comments Unknown Sex and Gender Information Value Date Recorded Sex Assigned at Not on file 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 Moderate thoracolumbar rotatory scoliosis with normal truncal balance. Electronically signed by: Toñito Mendes M.D. Narrative 04/06/2021 9:59 AM CDT EXAMINATION: Thoracolumbar spine scoliosis 2 or 3 views HISTORY: Scoliosis COMPARISON: 06/29/2019 FINDINGS: Standing AP and lateral views of the entire spine are submitted. There is unchanged moderate dextroscoliosis with apex at T9 and levoscoliosis with apex at L3. Truncal balance is normal. There is slight flattening of the thoracic kyphosis. Procedure Note Toñito Mendes MD - 04/06/2021 EXAMINATION: Thoracolumbar spine scoliosis 2 or 3 views HISTORY: Scoliosis COMPARISON: 06/29/2019 FINDINGS: Standing AP and lateral views of the entire spine are submitted. There is unchanged moderate dextroscoliosis with apex at T9 and levoscoliosis with apex at L3. Truncal balance is normal. There is slight flattening of the thoracic kyphosis. IMPRESSION: 1. Moderate thoracolumbar rotatory scoliosis with normal truncal balance. Electronically signed by: Toñito Mendes M.D. Supa Peña MD IMG XR PROCEDURES Final Result documented in this encounter Visit Diagnoses Diagnosis Scoliosis (and kyphoscoliosis), idiopathic- Primary Idiopathic scoliosis and kyphoscoliosis Scoliosis (and kyphoscoliosis), idiopathic documented in this encounter Care Teams Program Manager Relationship Specialty Start Date End Date Magy Medina NP PCP - General 05/10/19 documented as of this encounter
--- OUTSIDE RECORDS SUMMARY | 2024-06-05 20:40 | XMS_ITS | Encounter Summary ---
Author Organization [facility] Address [address] [place] [address] Care Team Providers Care Blasting Clay Miner Name Role Phone Magy Medina NP Primary Care Provider [phone] Reason for Visit * Reason Comments COVID-19 EVALUATION Encounter Details Date Type Department Care Team (Late st Contact Info) Description 04/20/2022 8:54 AM BUSINESS DIRECTOR - 04/20/2022 12:46 PM BUSINESS DIRECTOR Emergency [facility] Emergency Department [address] [place] [id number] Influenza A (Primary Dx); Dehydration; Syncope and collapse Discharge Disposition: Discharge to home or self care Social History Tobacco Use Types Packs/Day Years Used Date Smoking Tobacco: Never Smokeless Tobacco: Never Comments No Sex and Gender Information Value Date Recorded Sex Assigned at Not on file Legal Sex Female 6:43 PM BUSINESS DIRECTOR Gender Identity Not on file Sexual Orientation Not on file documented as of this encounter Last Filed Vital Signs Vital Sign Reading Time Taken Comments Blood Pressure 119/85 04/20/2022 12:33 PM BUSINESS DIRECTOR Pulse 88 04/20/2022 12:33 PM BUSINESS DIRECTOR Temperature 37.3 ??C (99.2 ??F) 04/20/2022 1 0:40 AM BUSINESS DIRECTOR Respiratory Rate 18 04/20/2022 12:3 3 PM BUSINESS DIRECTOR Oxygen Saturation 99% 04/20/2022 12: 33 PM BUSINESS DIRECTOR Inhaled Oxygen Concentration - - Weight 88.9 kg (195 lb 15.8 oz) 04/20/2022 8:35 AM BUSINESS DIRECTOR Height 157.5 cm (5' 2 ) 04/20/2022 8:35 AM BUSINESS DIRECTOR Body Mass Index 35.85 04/20/2022 8:35 AM BUSINESS DIRECTOR documented in this encounter Discharge Instructions * Discharge Instructions* Olayinka Bridges NP - 04/20/2022 12:35 PM BUSINESS DIRECTOR Take these medicine as prescribed, drink plenty of water and stay well hydrated, follow-up with primary care doctor next 2-3 days for re-evaluation, follow-up with film painter, Dr. Duran discuss about your passing out episode, return to ED immediately for any worsening of symptoms. NESS DIRECTOR NESS DIRECTOR documented in this encounter Medications at Time of Discharge albuterol (PROAIR DIGIHALER) 90 mcg/actuation inhaler Inhale 2 Inhalation 2 (two) times a day as needed 06/11/2018 cetirizine (ZyrTEC) 10 mg tablet Take 10 mg by mouth daily 09/25/2020 ondansetron ODT (ZOFRAN-ODT) 4 mg disintegrating tablet Take 1 tablet (4 mg total) by mouth every 8 (eight) hours as needed for nausea or vomiting 20 tablet 04/20/2022 oseltamivir (TAMIFLU) 75 mg capsule Take 1 capsule (75 mg total) by mouth every 12 (twelve) hours for 5 days 10 capsule 04/20/2022 2 documented as of this encounter Ordered Prescriptions Prescription Sig Dispense Quantity Refills Last Filled Start Date End Date ondansetron ODT (ZOFRAN-ODT) 4 mg disintegrating tablet Take 1 tablet (4 mg total) by mouth every 8 (eight) hours as needed for nausea or vomiting 20 tablet 04/20/2022 oseltamivir (TAMIFLU) 75 mg capsule Take 1 capsule (75 mg total) by mouth every 12 (twelve) hours for 5 days 10 capsule 04/20/2022 2 documented in this encounter Discharge Disposition Disposition Code Departure Means Destination Discharge to home or self care documented in this encounter ED Notes * Olayinka Bridges NP - 04/20/2022 9:56 AM CST HPI Chief Complaint Patient presents with COVID-19 EVALUATION HPI 12:35 PM Jenny Johnson is a 31 y.o. female presenting to the ED c/o URI. She states that approximately 10 days ago her daughter was diagnosed with COVID, she also developed cough and congestion sincethen, her cough has been getting productive, she was doing well until last night when she develops fever again along with chill, body ache and fatigue, in the middle of the night when she woke up to go to bathroom, she felt dizzy, she broke out in sweat and she would a syncopal episode, she was notsure how long she passed out, however after some time she was able to get back to her bed and this morning she came in here for re-evaluation. At this time she still complaining of weakness and fatigue, she is a fever however she denies any abdominal pain, chest pain at this time, any difficulty inbreathing. She has been nauseated over the course of last 10 days and she has been eating and drinking less. She denies any other complaint at this time. Patient History: No past medical history on file. No past surgical history on file. No family history on file. Social History Tobacco Use Smoking status: Never Smokeless tobacco: Never Substance and Sexual Activity Drug use: Not Currently Sexual activity: Not on file Alcohol Use: Not on file Current Facility-Administered Medications: meloxicam (MOBIC) tablet 15 mg, 15 mg, oral, Daily Current Outpatient Medications: albuterol (PROAIR DIGIHALER) 90 mcg/actuation inhaler cetirizine (ZyrTEC) 10 mg tablet ondansetron ODT (ZOFRAN-ODT) 4 mg disintegrating tablet oseltamivir (TAMIFLU) 75 mg capsule Review of Systems Review of Systems Constitutional: Positive for chills, fatigue and fever. HENT: Positive for congestion and sore throat. Negative for ear pain. Eyes: Negative for pain and visual disturbance. Respiratory: Positive for cough and shortness of breath. Cardiovascular: Negative for chest pain and palpitations. Gastrointestinal: Negative for abdominal pain, nausea and vomiting. Genitourinary: Negative for dysuria, flank pain and hematuria. Musculoskeletal: Positive for myalgias. Negative for arthralgias and back pain. Skin: Negative for color change and rash. Neurological: Positive for syncope, weakness and headaches. Negative for dizziness and seizures. All other systems reviewed and are negative. Physical Exam ED Triage Vitals Temp Pulse Resp BP SpO2 04/20/22 0835 04/20/22 0835 04/20/22 0835 04/20/22 0835 04/20/22 0835 (!) 38.7 ??C (101.7 ??F) 116 18 116/75 96 % Temp src Heart Rate Source Patient Position BP Location FiO2 (%) 04/20/22 0835 04/20/22 1040 04/20/22 1040 04/20/22 1040 -- Oral Monitor Sitting Left arm Height Height Method Weight Weight Method 04/20/22 0835 04/20/22 0835 04/20/22 0835 04/20/22 0835 1.575 m (5' 2 ) Stated 88.9 kg (195 lb 15.8 oz) Standing scale Physical Exam Vitals and nursing note reviewed. Constitutional: General: She is not in acute distress. Appearance: Normal appearance. She is well-developed. She is not ill-appearing, toxic-appearing or diaphoretic. HENT: Head: Normocephalic and atraumatic. Jaw: There is normal jaw occlusion. Right Ear: Hearing and external ear normal. Left Ear: Hearing and external ear normal. Nose: Nose normal. Mouth/Throat: Mouth: Mucous membranes are dry. Eyes: General: Lids are normal. Vision grossly intact. Extraocular Movements: Extraocular movements intact. Conjunctiva/sclera: Conjunctivae normal. Neck: Trachea: Trachea and phonation normal. Cardiovascular: Rate and Rhythm: Regular rhythm. Tachycardia present. Pulses: Normal pulses. Radial pulses are 2+ on the right side and 2+ on the left side. Heart sounds: Normal heart sounds. No murmur heard. Pulmonary: Effort: Pulmonary effort is normal. No respiratory distress. Breath sounds: Normal breath sounds and air entry. Abdominal: General: Bowel sounds are normal. There is no distension. Palpations: Abdomen is soft. Tenderness: There is no abdominal tenderness. There is no guarding. Musculoskeletal: Cervical back: Full passive range of motion without pain, normal range of motion and neck supple. Skin: General: Skin is warm and dry. Capillary Refill: Capillary refill takes less than 2 seconds. Neurological: General: No focal deficit present. Mental Status: She is alert and oriented to person, place, and time. GCS: GCS eye subscore is 4. GCS verbal subscore is 5. GCS motor subscore is 6. Cranial Nerves: Cranial nerves 2-12 are intact. Sensory: Sensation is intact. Motor: Motor function is intact. Coordination: Coordination is intact. Gait: Gait is intact. Psychiatric: Attention and Perception: Attention normal. Mood and Affect: Mood normal. Speech: Speech normal. Behavior: Behavior normal. Behavior is cooperative. Procedures MDM Labs Reviewed INFLUENZA A/B, RSV, AND COVID-19 PCR - Abnormal Result Value COVID-19 RNA Negative Influenza A RNA Positive (*) Influenza B RNA Negative RSV RNA Negative Narrative: Is the Patient experiencing symptoms consistent with COVID?->Yes Date of Symptom Onset->04/06/22 Reason for testing?->Bed placement or semi-private room URINALYSIS AND REFLEX TO MICROSCOPIC AND CULTURE - Abnormal Color, ur Straw Clarity, ur Clear Specific gravity, ur 1.003 pH, urine 6.0 Protein, ur ql Negative Glucose, ur ql Negative Ketones, ur Negative Bilirubin, ur Negative Blood, ur 3+ (*) Urobilinogen, ur <2.0 Nitrite, ur Negative Leukocyte esterase, ur Negative UA reflex comment Reflex to microscopic UA will be performed. Narrative: Urine pH is affected by diet, medications, systemic acid-base disturbances, and renal tubular function. pH may affect urinary stone formation. For example, urine pH below 6.0 may help reduce the tendency for calcium phosphate stones and pH greater than 6.0 may reduce the tendency for uric acid stone formation. Source: [facility].Last revised 06-19-2017 COMPREHENSIVE METABOLIC PANEL - Abnormal Sodium 137 Potassium, pl 3.9 Chloride 102 CO2 22 Anion gap 13 BUN 5 (*) Creatinine 0.80 Glucose 135 Calcium 9.0 Bilirubin, total 0.2 Protein, pl 7.6 Albumin 4.2 Alk phos 68 ALT 13 AST 18 URINALYSIS, MICROSCOPIC ONLY - Abnormal WBC, ur 0-5 RBC, ur 0-2 Epithelial cells, squamous, ur 21-50 (*) Bacteria, ur Trace (*) Mucous, ur Present (*) Culture Reflex Comment Value: Reflex conditions for urine culture (WBC >10) not met. POCT HCG, URINE - Normal HCG, ur, POC Negative Lot Number [id number] QC Backgroud Clear Acceptable QC Control Line Acceptable CBC WITH AUTO DIFFERENTIAL WBC 6.6 Hgb 13.5 Hct 40.9 Plt 277 MPV 9.8 RBC 4.80 MCV 85.2 MCH 28.1 MCHC 33.0 RDW CV 12.5 RDW SD 38.7 NRBC abs 0.00 DIFFERENTIAL AUTO Neutrophil abs 4.7 Imm gran abs 0.0 Lymphocyte abs 1.3 Monocyte abs 0.6 Eosinophil abs 0.0 Basophil abs 0.0 Neutrophil pct 70.6 Imm gran pct 0.2 Lymphocyte pct 19.5 Monocyte pct 9.2 Eosinophil pct 0.2 Basophil pct 0.3 EGFR eGFR 102 TROPONIN T HIGH-SENSITIVITY 2-HOUR Trop T hs <6 Trop T hs delta 0 Trop T hs interp Insignificant TROPONIN T HIGH-SENSITIVITY SERIES (BASELINE, 2HR, 4HR, 6HR) Trop T hs <6 TROPONIN T HIGH-SENSITIVITY SERIES (BASELINE, 2HR, 4HR, 6HR) TROPONIN T HIGH-SENSITIVITY 4-HR TROPONIN T HIGH-SENSITIVITY 6-HOUR XR Chest 1 Vw Portable Final Result BP 119/85 (BP Location: Left arm, Patient Position: Sitting) Pulse 88 Temp 37.3 ??C (99.2 ??F) (Oral) Resp 18 Ht 157.5 cm (5' 2 ) Wt 88.9 kg (195 lb 15.8 oz) LMP 04/18/2022 SpO2 99% BMI 35.85 kg/m?? ED Course: Disposition: This examination was transcribed using the [employer] Medium voice recognition system without human pattern hanger. In an effort to expedite patient care, this report has not been adjusted for typographical, grammatical, and syntax by a trained medical director. Clinical Impression: Influenza A Dehydration Syncope and collapse Olayinka Bridges NP 04/20/22 [id number] Cosigned by Enrique Haywood MD at 04/21/2022 6:11 AM BUSINESS DIRECTOR NESS DIRECTOR NESS DIRECTOR Associated attestation - Enrique Haywood MD - 04/21/2022 6:11 AM BUSINESS DIRECTOR ED Attestation This patient was independently evaluated by the APC. I was available for immediate consultation andin-person evaluation if required but was not asked to do so. * Oxana Gerber RN - 04/20/2022 8:32 AM CST Pt notes chest tightness, headache, n/v, productive cough with brown sputum, fatigue, weakness, fever, and chills for the past 2 weeks. Pt notes a syncopal episode while on the toilet today and pt annot testify if she hit her head or not. Pt daughter had covid 2 weeks ago. NESS DIRECTOR NESS DIRECTOR documented in this encounter Plan of Treatment Pending Results Name Type Priority Associated Diagnoses Date /Time Troponin T high-sensitivity series (baseline, 2hr, 4hr, 6hr) Lab STAT 04/20/2022 8:41 AM BUSINESS DIRECTOR Scheduled Orders Name Type Priority Associated Diagnoses Orde r Schedule Troponin T high-sensitivity series (baseline, 2hr, 4hr, 6hr) Lab STAT Once for 1 Occur rences starting 04/20/2022 until 04/20/2022 documented as of this encounter Procedures Procedure Name Priority Date/Time Associated Diagnosis Comments POCT HCG, URINE STAT 04/20/2022 12:03 PM BUSINESS DIRECTOR URINALYSIS AND REFLEX TO MICROSCOPIC AND CULTURE STAT 04/20/2022 11:33 AM BUSINESS DIRECTOR URINALYSIS, MICROSCOPIC ONLY STAT 04/20/2022 11:33 AM BUSINESS DIRECTOR TROPONIN T HIGH-SENSITIVITY 2-HOUR Timed 04/20/2022 11:05 AM BUSINESS DIRECTOR XR CHEST 1 VIEW ED 04/20/2022 8:57 AM BUSINESS DIRECTOR ECG 12-LEAD Routine 04/20/2022 8:48 AM BUSINESS DIRECTOR TROPONIN T HIGH-SENSITIVITY SERIES (BASELINE, 2HR, 4HR, 6HR) STAT 04/20/2022 8:41 AM BUSINESS DIRECTOR INFLUENZA A/B, RSV, AND COVID-19 PCR Routine 04/20/2022 8:41 AM BUSINESS DIRECTOR EGFR STAT 04/20/2022 8:41 AM BUSINESS DIRECTOR DIFFERENTIAL AUTO STAT 04/20/2022 8:4 1 AM BUSINESS DIRECTOR CBC WITH AUTO DIFFERENTIAL STAT 04/20/2022 8:41 AM BUSINESS DIRECTOR COMPREHENSIVE METABOLIC PANEL STAT 04/20/2022 8:41 AM BUSINESS DIRECTOR documented in this encounter Results * POCT hCG, urine (04/20/2022 12:03 PM BUSINESS DIRECTOR) HCG, ur, POC Negative Lot Number [id number] QC Backgroud Clear Acceptable QC Control Line Acceptable Urine 04/20/2022 12:0 3 PM BUSINESS DIRECTOR Olayinka Bridges NP POINT OF CARE TEST ORDERABLES Fi nal Result * (ABNORMAL) Urinalysis, microscopic only (04/20/2022 11:33 AM BUSINESS DIRECTOR) WBC, ur 0-5 0 - 5 /HPF TOMY Comment:Testing performed by : [address] [address] RBC, ur 0-2 0 - 2 /HPF TOMY Comment:Testing performed by : [address] [address] Epithelial cells, squamous, ur 21-50(A) 0 - 5 /HPF TOMY Comment: Suggestive of contamination. Consider recollection by clean catch. Testing performed by: [address] [address] Bacteria, ur Trace(A) TOMY PARR Comment:Testing performed by : [address] [address] Mucous, ur Present(A) TOMY PARR Comment:Testing performed by : [address] [address] Culture Reflex Comment Reflex conditions for urine culture (WBC >10) not met. TOMY Comment:Testing performed by : [address] [address] Urine 04/20/2022 11:3 3 AM BUSINESS DIRECTOR 04/20/2022 11:36 AM BUSINESS DIRECTOR us Olayinka Bridges NP LAB URINE ORDERABLES Final Resul t TOMY PARR [facility] Department [place] [address] * (ABNORMAL) Urinalysis reflex to microscopic and culture Urine (04/20/2022 11:33 AM BUSINESS DIRECTOR) Color, ur Straw Yellow TOMY Comment:Testing performed by : [address] [address] Clarity, ur Clear Clear TOMY Comment:Testing performed by : [address] [address] Specific gravity, ur 1.003 1.003 - 1.030 TOMY Comment:Testing performed by : [address] [address] pH, urine 6.0 TOMY Comment:Testing performed by : [address] [address] Protein, ur ql Negative Negative TOMY Comment:Testing performed by : [address] [address] Glucose, ur ql Negative Negative TOMY Comment:Testing performed by : [address] [address] Ketones, ur Negative Negative TOMY Comment:Testing performed by : [address] [address] Bilirubin, ur Negative Negative TOMY Comment:Testing performed by : [facility], [address] [place] [address]., [address] Blood, ur 3+(A) Negative TOMY Comment:Testing performed by : [address], [place]., [address] Urobilinogen, ur <2.0 <2.0 mg/dL TOMY Comment:Testing performed by : [address] [address] Nitrite, ur Negative Negative TOMY Comment:Testing performed by : [address], [place]., [address] Leukocyte esterase, ur Negative Negative TOMY Comment:Testing performed by : [address] [address] UA reflex comment Reflex to microscopic UA will be performed. TOMY Comment:Testing performed by : [address] [address] Urine 04/20/2022 11:3 3 AM BUSINESS DIRECTOR 04/20/2022 11:36 AM BUSINESS DIRECTOR Narrative TOMY - 04/20/2022 11:47 AM BUSINESS DIRECTOR ?? Urine pH is affected by diet, medications, systemic acid-base disturbances, and renal tubular function. ??pH may affect urinary stone formation. ??For example, urine pH below 6.0 may help reduce the tendency for calcium phosphate stones and pH greater than 6.0 may reduce the tendency for uric acid stone formation. Source: [facility]. Last revised 06-19-2017 us Olayinka Bridges NP LAB MICROBIOLOGY - GENERAL ORDER NAHED Final Result TOMY [address] [facility] Department [place] [address] * Troponin T high-sensitivity 2-hour (04/20/2022 11:05 AM BUSINESS DIRECTOR) Trop T hs <6 <=14 ng/L TOMY PARR Comment: Interpretive Data For further hscTnT resources including the diagnostic algorithm and an aid in interpretation, copy and paste this link: https://nrl.testcatalog.org/show/hsTrop Current Interpretive Data last revised 2020. Testing performed by: [facility], [address] [place] [address]., [address] Trop T hs delta 0 ng/L TOMY PARR Comment:Testing performed by : [facility], [address] [place] [address]., [address] Trop T hs interp Insignificant TOMY PARR Comment:Testing performed by : [facility], [address] [place] [address]., [address] Blood 04/20/2022 11:0 5 AM BUSINESS DIRECTOR 04/20/2022 11:13 AM BUSINESS DIRECTOR Enrique Haywood MD LAB BLOOD ORDERABLES Final Result TOMY [address] [facility] Department [place] [address] * XR Chest 1 Vw Portable (04/20/2022 8:57 AM BUSINESS DIRECTOR) Anatomical Region Laterality Modality Body, Chest N/A Computed Radiogr aphy 04/20/2022 9:56 AM BUSINESS DIRECTOR Narrative 04/20/2022 9:59 AM BUSINESS DIRECTOR EXAM DESCRIPTION: ?? XR CHEST 1 VIEW REASON FOR STUDY: ?? chest pain ?? Pt notes chest tightness, headache, n/v, productive cough with brown sputum, fatigue, weakness, fever, and chills for the past 2 weeks. ?? TECHNIQUE: ?? One ??radiographic view of the chest acquired. COMPARISON: ?? 06/29/2019 FINDINGS: LUNGS/PLEURA: Slightly low lung volumes with few scattered central and bibasilar opacities most likely representing subsegmental atelectasis. ?? No focal consolidation or pleural effusion. ??No pneumothorax. HEART/MEDIASTINUM: ?? Heart size is within normal limits given allowances for technique. ??Normal mediastinal contour. HARDWARE/LINES/TUBES: ?? None. BONES: ?? No acute finding. ??Redemonstrated thoracic scoliosis. OTHER: ?? No other significant finding. IMPRESSION: ?? No acute cardiopulmonary abnormality. THIS IS AN ELECTRONICALLY VERIFIED FINAL REPORT 04/20/2022 9:59 AM - Electronically signed by ??Christofer Coleman M.D. AG: LUIS D: ??04/20/2022 9:59 AM T: ??04/20/2022 9:59 AM Report ID: [id number] Reading Location: ??[id number] Procedure Note Christofer Coleman MD - 04/20/2022 EXAM DESCRIPTION: XR CHEST 1 VIEW REASON FOR STUDY: chest pain Pt notes chest tightness, headache, n/v, productive cough with brownsputum, fatigue, weakness, fever, and chills for the past 2 weeks. TECHNIQUE: One radiographic view of the chest acquired. COMPARISON: 06/29/2019 FINDINGS: LUNGS/PLEURA: Slightly low lung volumes with few scatteredcentral and bibasilar opacities most likely representing subsegmental atelectasis. No focal consolidation or pleural effusion. No pneumothorax. HEART/MEDIASTINUM: Heart size is within normal limits given allowancesfor technique. Normal mediastinal contour. HARDWARE/LINES/TUBES: None. BONES: No acute finding. Redemonstrated thoracic scoliosis. OTHER: No other significant finding. IMPRESSION: No acute cardiopulmonary abnormality. THIS IS AN ELECTRONICALLY VERIFIED FINAL REPORT 04/20/2022 9:59 AM - Electronically signed by Christofer Coleman M.D. AG: LUIS Report ID: [id number] Reading Location: [place] [address] Enrique Haywood MD IMG XR PROCEDURES Fin al Result * ECG 12 lead (04/20/2022 8:48 AM BUSINESS DIRECTOR) Ventricular Rate EKG/Min 112 BPM [facility] Atrial Rate 112 BPM [facility] AK-Interval (MSEC) 134 ms [facility] QRS-Interval (MSEC) 74 ms [facility] QT-Interval (MSEC) 298 ms [facility] QTc 406 ms [facility] P [place] 50 degrees [facility] R [place] 29 degrees [facility] T [place] -10 degrees [facility] Diagnosis Sinus tachycardia T wave abnormality, consider anterolateral ischemia Abnormal ECG When compared with ECG of 29-JUN-2019 11:42, Vent. rate has increased BY ??42 BPM Inverted T waves have replaced nonspecific T wave abnormality in Inferior leads T wave inversion more evident in Anterolateral leads [facility] 04/20/2022 8:48 AM BUSINESS DIRECTOR 04/20/2022 9:48 AM BUSINESS DIRECTOR Enrique Haywodo MD ECG ORDERABLES Final Result Performing Organization Address City/[facility] Co de Phone Number [facility] * Troponin T high-sensitivity series (baseline, 2hr, 4hr, 6hr) (04/20/2022 8:41 AM BUSINESS DIRECTOR) Pathologist [facility] Trop T hs <6 <=14 ng/L TOMY Comment: Interpretive Data For further hscTnT resources including the diagnostic algorithm and an aid in interpretation, copy and paste this link: https://nrl.testcatalog.org/show/hsTrop Current Interpretive Data last revised 2020. Testing performed by: [facility], [address] [address]., [address] Blood 04/20/2022 8:41 AM BUSINESS DIRECTOR 04/20/2022 8:46 AM BUSINESS DIRECTOR Enrique Haywood MD LAB BLOOD ORDERABLES Final Result Performing Organization Address [facility] Co de Phone Number TOMY [address] [facility] Department [place] [address] * eGFR (04/20/2022 8:41 AM BUSINESS DIRECTOR) eGFR 102 mL/min/1. 73 m2 TOMY PARR Comment: Interpretive Data Reference Interval Normal ?>/= 90 mL/min/1.73m2 Mildly decreased* ? 60 - 89 mL/min/1.73m2 Mildly to moderately decreased ?45 - 59 mL/min/1.73m2 Moderately to severely decreased ??30 - 44 mL/min/1.73m2 Severely decreased ?15 - 29 mL/min/1.73m2 Kidney Failure ?< 15 ??mL/min/1.73m2 *Relative to young adult level Estimated glomerular filtration rate is determined by the 2020 CKD-EPI equation recommended by the National Kid[employer] Foundation (A Unifying Approach to GFR Estimation: Recommendations of the NKF-ASK Task Force on Reassessing the Inclusion of Race in Diagnosing Kidney Disease, JASN 2020). The CKD-EPI equation should not be used for patients with unstable renal function and has not been validated in children and those over 70. Current interpretive data was last reviewed 2021. Testing performed by: [address] [address] Blood 04/20/2022 8:41 AM BUSINESS DIRECTOR 04/20/2022 8:46 AM BUSINESS DIRECTOR us Enrique Haywood MD LAB BLOOD ORDERABLES Final Result [facility] Department [place] [address] * Differential, auto (04/20/2022 8:41 AM BUSINESS DIRECTOR) Neutrophil abs 4.7 1.7 - 6.5 K/cumm TOMY Comment:Testing performed by : [address] [address] Imm gran abs 0.0 0.0 - 0.1 K/cumm TOMY Comment:Testing performed by : [address] [address] Lymphocyte abs 1.3 0.8 - 3.3 K/cumm TOMY Comment:Testing performed by : [address] [address] Monocyte abs 0.6 0.2 - 0.8 K/cumm TOMY Comment:Testing performed by : [address] [place]., [address] Eosinophil abs 0.0 0.0 - 0.5 K/cumm [facility] Comment:Testing performed by : [address] [address] Basophil abs 0.0 0.0 - 0.1 K/cumm TOMY Comment:Testing performed by : [address] [address] Neutrophil pct 70.6 % [facility] Comment: Interpretive Data Percent cell count reference ranges are not reported, since discordance with absolute values may lead to misinterpretation of CBC data. Current Interpretive Data was last revised on 2017. Testing performed by: [address] [address] Imm gran pct 0.2 % [facility] Comment: Interpretive Data Percent cell count reference ranges are not reported, since discordance with absolute values may lead to misinterpretation of CBC data. Current Interpretive Data was last revised on 2017. Testing performed by: [address] [address] Lymphocyte pct 19.5 % [facility] Comment: Interpretive Data Percent cell count reference ranges are not reported, since discordance with absolute values may lead to misinterpretation of CBC data. Current Interpretive Data was last revised on 2017. Testing performed by: [address] [address] Monocyte pct 9.2 % [facility] Comment: Interpretive Data Percent cell count reference ranges are not reported, since discordance with absolute values may lead to misinterpretation of CBC data. Current Interpretive Data was last revised on 2017. Testing performed by: [address] [address] Eosinophil pct 0.2 % [facility] Comment: Interpretive Data Percent cell count reference ranges are not reported, since discordance with absolute values may lead to misinterpretation of CBC data. Current Interpretive Data was last revised on 2017. Testing performed by: [address] [address] Basophil pct 0.3 % [facility] Comment: Interpretive Data Percent cell count reference ranges are not reported, since discordance with absolute values may lead to misinterpretation of CBC data. Current Interpretive Data was last revised on 2017. Testing performed by: [address] [address] Blood 04/20/2022 8:41 AM BUSINESS DIRECTOR 04/20/2022 8:46 AM BUSINESS DIRECTOR Enrique Haywood MD LAB BLOOD ORDERABLES Final Result [facility] [address] [facility] Department [place] [address] * (ABNORMAL) Comprehensive metabolic panel (04/20/2022 8:41 AM BUSINESS DIRECTOR) Sodium 137 135 - 145 mmol/L [facility] Comment:Testing performed by : [address] [address] Potassium, pl 3.9 3.3 - 4.9 mmol/L [facility] Comment:Testing performed by : [address] [address] Chloride 102 97 - 110 mmol/L [facility] Comment:Testing performed by : [address] [address] CO2 22 22 - 32 mmol/L [facility] Comment:Testing performed by : [address] [address] Anion gap 13 2 - 15 mmol/L [facility] Comment:Testing performed by : [address] [address] BUN 5(L) 8 - 25 mg/dL [facility] Comment:Testing performed by : [address] [address] Creatinine 0.80 0.60 - 1.10 mg/dL [facility] Comment:Testing performed by : [address] [address] Glucose 135 70 - 199 mg/dL [facility] Comment: Interpretive Data Fasting glucose >/= 126 mg/dl is diagnostic for diabetes. ?? Fasting is defined as no caloric intake for at least 8 hours. Fasting glucose between 100 mg/dl to 125 mg/dl is diagnostic of prediabetes. In a patient with classic symptoms of hyperglycemia or hyperglycemic crisis, a random glucose >/= 200 mg/dl is diagnostic for diabetes. In the absence of unequivocal hyperglycemia, results should be confirmed by repeat testing. The classification and Diagnosis of Diabetes Diabetes Care 2017;40 (Suppl. 1):S11. Current interpretive data was last revised 2017. Testing performed by: [address] [address] Calcium 9.0 8.5 - 10.3 mg/dL [facility] Comment:Testing performed by : [address] [address] Bilirubin, total 0.2 0.1 - 1.2 mg/dL [facility] Comment:Testing performed by : [address] [address] Protein, pl 7.6 6.5 - 8.5 g/dL [facility] Comment:Testing performed by : [address] [address] Albumin 4.2 3.5 - 5.0 g/dL [facility] Comment:Testing performed by : [address] [address] Alk phos 68 40 - 130 Units/L [facility] Comment:Testing performed by : [address] [address] ALT 13 7 - 45 Units/L [facility] Comment:Testing performed by : [address] [address] AST 18 10 - 45 Units/L [facility] Comment:Testing performed by : [address] [address] Blood 04/20/2022 8:41 AM BUSINESS DIRECTOR 04/20/2022 8:46 AM BUSINESS DIRECTOR us Enrique Haywood MD LAB BLOOD ORDERABLES Final Result [facility] [address] [facility] Department [place] [address] * CBC with auto differential (04/20/2022 8:41 AM BUSINESS DIRECTOR) [facility] WBC 6.6 3.8 - 9.9 K/cumm [facility] Comment:Testing performed by : [address], [address] Hgb 13.5 11.9 - 15.5 g/dL [facility] Comment:Testing performed by : [address], [address] Hct 40.9 35.6 - 45.5 % [facility] Comment:Testing performed by : [address], [address] Plt 277 150 - 400 K/cumm [facility] Comment:Testing performed by : [address], [address] MPV 9.8 9.1 - 12.3 fL [facility] Comment:Testing performed by : [address], [address] RBC 4.80 3.90 - 5.20 M/cumm [facility] Comment:Testing performed by : [address], [address] MCV 85.2 81.3 - 96.4 fL [facility] Comment:Testing performed by : [address], [address] MCH 28.1 27.1 - 33.3 pg [facility] Comment:Testing performed by : [address], [address] MCHC 33.0 32.3 - 35.7 g/dL [facility] Comment:Testing performed by : [address], [address] RDW CV 12.5 11.1 - 14.9 % [facility] Comment:Testing performed by : [address], [address] RDW SD 38.7 35.7 - 48.1 fL [facility] Comment:Testing performed by : [address], [address] NRBC abs 0.00 0.00 - 0.01 K/cumm [facility] Comment:Testing performed by : [address] [address] Blood (Blood, Venous) 04/20/2022 8:41 AM BUSINESS DIRECTOR 04/20/2022 8:46 AM BUSINESS DIRECTOR Enrique Haywood MD LAB BLOOD ORDERABLES Final Result [facility] [address] [facility] Department [place] [address] * (ABNORMAL) Influenza A/B, RSV, and COVID-19 PCR Nasopharyngeal (04/20/2022 8:41 AM BUSINESS DIRECTOR) [facility] COVID-19 RNA Negative Negative [facility] Comment:Testing performed by : [address] [address] Influenza A RNA Positive(A) Negative [facility] Comment:Testing performed by : [address] [address] Influenza B RNA Negative Negative [facility] Comment:Testing performed by : [address] [address] RSV RNA Negative Negative [facility] Comment: Interpretive data: This test is performed using the enrich-in Xpert Xpress CoV-2/Flu/RSV plus assay. This is a multiplex, real-time reverse transcriptase PCR assay intended for the qualitative detection of nucleic acid from SARS-CoV-2, influenza A, influenza B, and respiratory syncytial virus. This assay has been reviewed by the FDA for Emergency Use Authorization (EUA). The performance characteristics have been verified by the performing laboratory. Results must be considered in the clinical context, and a negative result does not rule out infection. Interpretive Data last revised 2021. Testing performed by: [address] [address] Nasopharyngeal 04/20/2022 8: 41 AM BUSINESS DIRECTOR 04/20/2022 8:46 AM BUSINESS DIRECTOR Narrative [facility] - 04/20/2022 9:25 AM BUSINESS DIRECTOR Is the Patient experiencing symptoms consistent with COVID?->Yes Date of Symptom Onset->04/06/22 Reason for testing?->Bed placement or semi-private room Enrique Haywood MD LAB MICROBIOLOGY - [facility] ORDERABLES Final Result [facility] [address] [facility] Department [place] [address] documented in this encounter Visit Diagnoses Diagnosis Influenza A- Primary Influenza with other respiratory manifestations Dehydration Syncope and collapse documented in this encounter Administered Medications Inactive Administered Medications - up to 3 most recent administrations Medication Order MAR Action Action Date Dose Rate Site acetaminophen (TYLENOL) tablet 975 mg 975 mg (rounded from 1,000 mg), oral, Once, On 04/20/22 at 0846, For 1 dose Given 04/20/2022 8:47 AM BUSINESS DIRECTOR 975 mg oseltamivir (TAMIFLU) capsule 75 mg 75 mg, oral, Once, On 04/20/22 at 1030, For 1 dose, Indications: InfluenzaIndications:Influe nza Given 04/20/2022 11:06 AM BUSINESS DIRECTOR 75 mg sodium chloride 0.9% bolus 1,000 mL 1,000 mL, intravenous, Once, On 04/20/22 at 0856, For 1 dose New Bag 04/20/2022 8:58 AM BUSINESS DIRECTOR 1,000 mL sodium chloride 0.9% bolus 1,000 mL 1,000 mL, intravenous, at 1,000 mL/hr, Administer over 1 Hours, Once, On 04/20/22 at 0949, For 1 dose New Bag 04/20/2022 10:38 AM BUSINESS DIRECTOR 1,000 mL 1000 mL/hr documented in this encounter Active and Recently Administered Medications Times are shown in BUSINESS DIRECTOR. Scheduled Medication Order 04/18/2022 04/19/2022 04/20/2022 acetaminophen (TYLENOL) tablet 975 mg (COMPLETED) 975 mg (rounded from 1,000 mg), oral, Once, On 04/20/22 at 0846, For 1 dose 0847 (Given - Provid er: Oxana Gerber RN) oseltamivir (TAMIFLU) capsule 75 mg (COMPLETED) 75 mg, oral, Once, On 04/20/22 at 1030, For 1 dose, Indications: Influenza 1106 (Given - Provid er: Khalida Pepe RN) sodium chloride 0.9% bolus 1,000 mL (COMPLETED) 1,000 mL, intravenous, Once, On 04/20/22 at 0856, For 1 dose 0858 (New Bag - Prov ider: Oxana Gerber RN)1000 (Stopped - Provider: Khalida Pepe RN) sodium chloride 0.9% bolus 1,000 mL (COMPLETED) 1,000 mL, intravenous, at 1,000 mL/hr, Administer over 1 Hours, Once, On 04/20/22 at 0949, For 1 dose 1038 (New Bag - Prov ider: Oxana Gerber RN)1239 (Stopped - Provider: Khalida Pepe RN) documented in this encounter Orders Nursing Count Last Ordered Date First Orde red Date MISCELLANEOUS NURSING CARE ORDER (SPECIFY) 1 04/20/2022 IV Count Last Ordered Date First Orde red Date SALINE LOCK IV 1 04/20/2022 documented in this encounter Additional Health Concerns Infection Onset Date Last Indicated Resolved Time COVID19 Comment:Added from the Screening question BPA, identifying patients that tested positive for COVID in the last 14 days and the result is from a facility outside [facility] . 04/20/2022 04/20/2022 04/30/2022 3:05 AM BUSINESS DIRECTOR Influenza, adult 04/20/2022 04/20/2022 04/27/2022 3:05 AM BUSINESS DIRECTOR documented as of this encounter Care Teams Blasting Clay [employer]er Relationship Specialty Start Date End Date Magy Medina NP PCP - General 05/10/19 documented as of this encounter
--- OUTSIDE RECORDS SUMMARY | 2024-06-05 20:40 | XMS_ITS | Encounter Summary ---
Author Organization [facility] Healthcare Address [address] [place] [id number] Care Team Providers Care Inspector Machined Parts Name Role Phone Magy Medina NP Primary Care Provider [phone] Reason for Visit * Reason Comments Follow-up Encounter Details Date Type Department Care Team (Late st Contact Info) Description 12/07/2021 10:00 AM CDT Office Visit [facility] Orthopedic Spine [address] [facility] 4th [address] [place] [address] Scoliosis of lumbar spine, unspecified scoliosis type (Primary Dx) Social History Tobacco Use Types Packs/Day Years Used Date Smoking Tobacco: Never Smokeless Tobacco: Never Comments Unknown Sex and Gender Information Value Date Recorded Sex Assigned at Not on file Legal Sex Female 6:43 PM OTC CLERK Gender Identity Not on file Sexual Orientation Not on file documented as of this encounter Last Filed Vital Signs Vital Sign Reading Time Taken Comments Blood Pressure 128/69 12/07/2021 11:12 AM CDT Pulse 78 12/07/2021 11:12 AM CDT Temperature 36.9 ??C (98.5 ??F) 12/07/2021 11:12 AM C DT Respiratory Rate 16 12/07/2021 11:12 AM CDT Oxygen Saturation - - Inhaled Oxygen Concentration - - Weight 89.4 kg (197 lb) 12/07/2021 11:12 AM CDT Height - - Body Mass Index 37.22 04/06/2021 10:05 AM CDT documented in this encounter Patient Instructions * Patient Instructions* Stephanie Wilson RN - 12/07/2021 12:17 PM CDT Discharge instructions and plan of care explained to patient. Patient confirms education at time ofdischarge and all questions answered. Patient informed to call clinic with any future questions or concerns [phone]. If you are interested in receiving the COVID-19 vaccination through [facility], please visit our website at [email or web address]. If you do not have access to the Internet, please call the following number: [phone]. * Attachments The following attachments cannot be sent through Care Everywhere. * Non-pharmacological Pain Management Therapies for Adults (General Information) (Emirati) documented in this encounter Progress Notes * Delmar Forde MD PhD - 12/07/2021 10:00 AM CDT ORTHO TRAUMA ESTABLISHED PATIENT VISIT DIAGNOSIS Adolescent idiopathic scoliosis with axial back pain INTERVAL HISTORY The patient is a 31 y.o. female that presents in evaluation of known long- standing adolescent idiopathic scoliosis, stable curve. She has longstanding mid axial back pain. Denies any radiation of thepain to her upper lower extremities. Denies any issues with bowel/bladder control. No gait instability. Her pain is predominantly localized to the thoracolumbar region in the axial portion of her spine. It is worse with prolonged standing. She gets fatigued after long days of work. She has previously done physical therapy and been seen by pain management doctors. She has had several MRIs and epidural injections. She does not feel that any of these modalities have prior by did relief. She has not done bracing. PHYSICAL EXAMINATION Well-developed well-nourished in no acute distress. Alert and oriented ??3. Normal respirations without dyspnea with speaking. Distal pulses are palpable and rhythm is regular. Spine exam: Full range of motion with minimal pain with flexion and extension of the lumbar spine She has a right thoracic prominence on forward bending Ambulates with a normal gait pattern. Able to tandem heel-toe walk, walk on toes, walk on heels. Motor exam: 5/5 strength in all muscle groups in the bilateral upper extremities and lower extremities Sensory exam: Sensation intact to light touch in the C5-T1 dermatomes bilateral upper extremity and L2-S1 dermatomes in the bilateral lower extremity Long track signs: Normal reflexes, no clonus REVIEW OF X-RAYS/STUDIES I have ordered and personally reviewed scoliosis films. She has a 40 degree main thoracic curve, right-sided. This is stable compared to films from March of 2021. She has excellent sagittal alignment. IMPRESSION The patient is a 31 y.o. female with adolescent idiopathic scoliosis, stable. She has an approximately 40 degree main thoracic curve that remains stable. She has excellent sagittal alignment. She continues to have mid axial thoracic and lumbar spine pain without any radicular features. Patient is very frustrated. She has trialed several non operative therapies in the past. She has had several MRIs and epidural injections without significant relief. She has done physical therapy in the past but does not do self guided exercises for spine strength and conditioning on her own. She takes anti-inflammatories as needed. She has not pursued other holistic approaches such as acupuncture or massage. I discussed with the patient that correcting her coronal deformity would be quite feasible surgically, however I am concerned as to whether not this would provide any relief of her pain. In fact the stiffness it in the spine after posterior spinal fusion might even exacerbate these symptoms. At this juncture the patient is in agreement and is not necessarily looking for surgical intervention. Shewould consider any other form of multimodal pain relief. I stressed that it is imperative that evenwhen she is not in formal physical therapy that she should remain active and continue to focus on spine strengthening and conditioning. She could also benefit from weight loss and we discussed this. I a place referrals both to pain management and physical medicine and rehabilitation. She might be a good patient for the [facility]. While she is not very interested in repeat epidural injections, I did discuss that there are several other nonsurgical multimodal treatment options that might be available to her. Things like acupuncture, massage might be quite helpful. PLAN/FOLLOW-UP PRN The patient verbalized understanding of and agreement with the treatment plan and all of their questions were answered today. Delmar Forde MD, PhD Tailor Fitter PGY-5 Department of Orthopaedic Surgery [facility] documented in this encounter Plan of Treatment Not on file documented as of this encounter Procedures Procedure Name Priority Date/Time Associated Diagnosis Comments XR SCOLIOSIS AP LAT IP Routine 12/07/2021 10:40 AM CDT documented in this encounter Results * XR Scoliosis Ap and Lateral (12/07/2021 10:40 AM CDT) Anatomical Region Laterality Modality Spine N/A Computed Radiogr aphy 12/07/2021 11:4 5 AM CDT Impressions 12/07/2021 5:30 PM CDT Unchanged moderate thoracolumbar rotatory scoliosis with minimal leftward coronal and mild positive sagittal imbalance. Dictated by: Jia Riley M.D. The radiology attending physician has personally reviewed this study, and had reviewed and/or edited this written report and agrees with it. Electronically signed by: Elder Petersen MD Narrative 12/07/2021 5:30 PM CDT EXAMINATION: XR SCOLIOSIS AP AND LATERAL HISTORY: Scoliosis COMPARISON: 04/06/2021 FINDINGS: Standing frontal and lateral views of the entire spine obtained using the EOS system . Moderate rotary S-shaped scoliosis is noted with dextroscoliosis component centered at T9 and levoscoliosis component centered at L3. Minimal leftward coronal and mild posterior sagittal imbalance. ??No pelvic obliquity. Mild disc space narrowing at L5-S1 Procedure Note Elder Petersen MD - 12/07/2021 EXAMINATION: XR SCOLIOSIS AP AND LATERAL HISTORY: Scoliosis COMPARISON: 04/06/2021 FINDINGS: Standing frontal and lateral views of the entire spine obtained using the EOS system . Moderate rotary S-shaped scoliosis is noted with dextroscoliosis component centered at T9 and levoscoliosis component centered at L3. Minimal leftward coronal and mild posterior sagittal imbalance. No pelvic obliquity. Mild disc space narrowing at L5-S1 IMPRESSION: Unchanged moderate thoracolumbar rotatory scoliosis with minimal leftward coronal and mild positive sagittal imbalance. Dictated by: Jia Jo Ann Mehrsheikh, M.D. The radiology attending physician has personally reviewed this study, and had reviewed and/or edited this written report and agrees with it. Electronically signed by: Elder Petersen MD us Delmar Forde MD PhD IMG XR PROCEDURES Fi nal Result documented in this encounter Visit Diagnoses Diagnosis Scoliosis of lumbar spine, unspecified scoliosis type- Primary documented in this encounter Care Teams Inspector Machined Parts Relationship Specialty Start Date End Date Magy Medina NP PCP - General 05/10/19 documented as of this encounter
--- OUTSIDE RECORDS SUMMARY | 2024-06-05 20:40 | XMS_ITS | Encounter Summary ---
Author Organization [facility] Healthcare Address [address] [place] [address] Care Team Providers Care Hoop Expander Name Role Phone Magy Medina NP Primary Care Provider [phone] Encounter Details Date Type Department Care Team (Late st Contact Info) Description 01/17/2020 11:12 AM CDT - 01/17/2020 2:42 PM CDT Hospital Encounter [address] [address] Unknown, Notinfile Discharge Disposition: Left without being seen Social History Tobacco Use Types Packs/Day Years Used Date Smoking Tobacco: Never Assessed Comments Unknown Sex and Gender Information Value Date Recorded Sex Assigned at Not on file Legal Sex Female 6:43 PM MERCHANDISING LEAD Gender Identity Not on file Sexual Orientation Not on file documented as of this encounter Last Filed Vital Signs Vital Sign Reading Time Taken Comments Blood Pressure 113/77 01/17/2020 11:17 AM CDT Pulse 95 01/17/2020 11:17 AM CDT Temperature 37 ??C (98.6 ??F) 01/17/2020 11: 17 AM CDT Respiratory Rate - - Oxygen Saturation 95% 01/17/2020 11: 17 AM CDT Inhaled Oxygen Concentration - - Weight 81.1 kg (178 lb 12.7 oz) 020 11:17 AM CDT Height 157.5 cm (5' 2 ) 01/17/2020 11:1 7 AM CDT Body Mass Index 32.7 01/17/2020 11:17 AM CDT documented in this encounter Medications at Time of Discharge albuterol (PROAIR DIGIHALER) 90 mcg/actuation inhaler Inhale 2 Inhalation 2 (two) times a day as needed 06/11/2018 documented as of this encounter Discharge Disposition Disposition Code Departure Means Destination Left without being seen documented in this encounter Plan of Treatment Not on file documented as of this encounter Procedures Procedure Name Priority Date/Time Associated Diagnosis Comments SCAN - LABS 01/18/2020 12:00 AM CDT CBC WITH AUTO DIFFERENTIAL Routine 01/17/2020 12:17 PM CDT ABO/RH Routine 01/17/2020 12:17 PM CDT HCG, BLOOD, QUANTITATIVE Routine 01/17/2020 12:17 PM CDT COMPREHENSIVE METABOLIC PANEL Routine 01/17/2020 12:17 PM CDT TRICHOMONAS URINE EXAM,MALE Routine 01/17/2020 11:59 AM CDT URINALYSIS, COMPLETE W/REFLEX TO CULTURE Routine 01/17/2020 11:59 AM CDT N. GONORRHOEAE/C. TRACHOMATIS AMPLIFICATION TEST Routine 01/17/2020 11:59 AM CDT documented in this encounter Results * SCAN - LABS (01/18/2020 12:00 AM CDT) Narrative 01/18/2020 12:00 AM CDT Ordered by an unspecified provider. us Historical Provider Final Res ult * (ABNORMAL) hCG, blood, quantitative (01/17/2020 12:17 PM CDT) Beta HCG, Quant 50,125.0( H) 0.0 - 4.0 mIU/mL [facility] Comment: Female Reference Intervals(): ??Negative ? < 5.0 mIU/mL ??Indeterminate ??5.0-25.0 mIU/mL ??Positive ? > 25.0 mIU/mL Values between 5.0 and 25.0 mIU/mL are indeterminate for . Repeat testing of indeterminate results is suggested in 72 hours. Plasma hCG levels cannot be used to date a . In normal , values should double every 48-72 hours for the first 6 weeks.In postmenopausal women, an hCG level up to 14.0 mIU/mL can be considered normal. This result is not interpretable as a tumor marker in females. 01/17/2020 12:1 7 PM CDT 01/17/2020 12:21 PM CDT Narrative Resulting Agency Comment ER us Nina ADORNO LAB BLOOD ORDERABLES Final R esult [facility] [address] [place] [address], [facility] [phone] * (ABNORMAL) Comprehensive metabolic panel (01/17/2020 12:17 PM CDT) Sodium 135 135 - 145 mmol/L [facility] Potassium 3.3 3.3 - 5.1 mmol/L [facility] Chloride 102 96 - 108 mmol/L [facility] Carbon Dioxide 20(L) 22 - 32 mmol/L [facility] Anion Gap 13 7 - 16 [facility] Glucose 103(H) 70 - 100 mg/dL [facility] BUN 9 8 - 25 mg/dL [facility] Creatinine 0.5 0.5 - 1.1 mg/dL [facility] Comment: NOTE: Estimated GFR (Cockroft-Gault) will NOT be calculated unless patient Height and Weight were entered. Also, Kidney Disease Stage (GFR) and Estimated GFR (Cockroft-Gault) will NOT be calculated if Creatinine result is <0.2. Kidney Disease Stage >90 mL/MIN [facility] Comment: NOTE; ??The GFR is an estimated value using the creatinine, sex, age, and race of the patient. THE Estimated Kidney Disease GFR is validated for AGES 18-70 YEARS STAGE ?mL/Min ?DESCRIPTION ??1 ?90 mL/min or more ?Normal or elevated GFR ??2 ? 60-89 mL/min ?Mildly decreased GFR ??3 ? 30-59 mL/min ?Moderately decreased GFR ??4 ? 15-29 mL/min ?Severely decreased GFR ??5 ? <15 mL/min ? Kidney failure or on dialysis Est GFR (Cockcroft-G) 165 ml/MIN [facility] Comment: Estimated GFR(Cockroft-Gault)is used to calculate patient medication dosage Calcium 9.8 8.6 - 10.3 mg/dL [facility] Total Protein 7.9 6.4 - 8.3 g/dL [facility] Albumin 4.6 3.5 - 5.0 g/dL [facility] Globulin 3.3 2.3 - 3.5 gm/dL [facility] Albumin/Globulin Ratio 1.4 1.1 - 1.8 [facility] Total Bilirubin 0.3 0.0 - 1.2 mg/dL [facility] AST 26 0 - 32 U/L [facility] ALT 42(H) 0 - 33 U/L [facility] Alkaline Phosphatase 60 35 - 104 U/L [facility] 01/17/2020 12:1 7 PM CDT 01/17/2020 12:21 PM CDT Narrative Resulting Agency Comment ER Nina ADORNO LAB BLOOD ORDERABLES Final R esult [facility] [address] [place] [address], [facility] [phone] * ABO/Rh (01/17/2020 12:17 PM CDT) [facility] Blood Type BP [facility] 01/17/2020 12:1 7 PM CDT 01/17/2020 12:21 PM CDT Narrative [facility] - 01/17/2020 1:15 PM CDT Hx of or Candidate for Bone Marrow/Stem Cell Transplant N Resulting Agency Comment ER us Nina ADORNO LAB BLOOD BANK TEST ORDERABL ES Final Result Performing Organization Address [facility]/[place] [address], [facility] [phone] * CBC with auto differential (01/17/2020 12:17 PM CDT) [facility] WBC 5.6 3.8 - 9.9 X10 3/ul [facility] RBC 4.68 3.90 - 5.20 x10 6/ul [facility] Hemoglobin 13.0 11.9 - 15.5 g/dL [facility] Hct 38.5 35.6 - 45.5 % [facility] MCV 82.3 81.3 - 96.4 fl [facility] MCH 27.8 27.1 - 33.3 pg [facility] MCHC 33.8 32.3 - 35.7 g/dl [facility] RDW 13.6 11.1 - 14.9 % [facility] Plt Count 323 150 - 400 x10 3/ul [facility] MPV 10.2 9.1 - 12.3 fl [facility] Neut % 60.2 % [facility] Immature Gran % 0.2 % [facility] Lymph % 27.0 % [facility] [place] % 8.5 % [facility] Eos % 3.2 % [facility] AUTO BASO % 0.9 % [facility] NEUTROPHIL ABS # 3.4 1.7 - 6.5 x10 3/ul [facility] Immature Gran # 0.0 0.0 - 0.1 x10 3/ul [facility] Absolute Lymphs (auto) 1.5 0.8 - 3.3 x10 3/ul [facility] Absolute Monos (auto) 0.5 0.2 - 0.8 x10 3/ul [facility] Absolute Eos (auto) 0.2 0.0 - 0.5 x10 3/ul [facility] BASOPHIL ABS # 0.1 0.0 - 0.1 x10 3/ul [facility] Nucleat RBC Rel Count 0.0 #/100WBC [facility] NRBC abs 0.00 0.00 - 0.01 x10 3/ul [facility] Absolute Neutrophils 3,400 200 - 8,000 /ul [facility] 01/17/2020 12:1 7 PM CDT 01/17/2020 12:21 PM CDT Narrative Resulting Agency Comment ER us Nina ADORNO LAB BLOOD ORDERABLES Final R esult [facility] [address] [place] [address], [facility] [phone] * N. gonorrhoeae/C. trachomatis amplification test (01/17/2020 11:59 AM CDT) C. trachomatis RNA NOT DETECTED [facility] Comment: Chlamydia trachomatis is not detected. N. gonorrhoeae RNA NOT DETECTED [facility] Comment: Neisseria gonorrhoeae is not detected. Chlamydia/GC Source URINE [facility] Comment: This assay detects Chlamydia trachomatis and Neisseria gonorrhoeae by nucleic acid amplification testing (NAAT). Disclaimer: This Test is not FDA approved in females less than 14 years of age and in males less than 17 years of age. All positive CT/NG results on non-FDA approved pediatric age group patients have been confirmed positive by repeat testing. 01/17/2020 11:5 9 AM CDT 01/17/2020 12:22 PM CDT Narrative [facility] - 01/17/2020 2:25 PM CDT Urine collection method First catch lessthan 50ml Collected By BK Urine Resulting Agency Comment ER us Nina ADORNO LAB MICROBIOLOGY - GENERAL O RDERABLES Final Result [address] [phone] * TRICHOMONAS URINE EXAM,MALE (01/17/2020 11:59 AM CDT) U Trichomonas Species NEGATIVE NEGATIVE [facility] 01/17/2020 11:5 9 AM CDT 01/17/2020 12:22 PM CDT Narrative [facility] - 01/17/2020 1:06 PM CDT Collected By BK Urine collection method First catch lessthan 50ml Resulting Agency Comment ER us Nina ADORNO LAB BLOOD ORDERABLES Final R esult Performing Organization Address City/[facility]/[place] [address], [facility] [phone] * (ABNORMAL) URINALYSIS, COMPLETE W/REFLEX TO CULTURE (01/17/2020 11:59 AM CDT) Ur Collection Type CLEAN CATCH [facility] Ur Culture Indicated? C S NOT INDICATED [facility] Urine Color DARK YELLOW YELLOW [facility] Urine Clarity CLEAR CLEAR [facility] Urine Glucose (UA) NORMAL NORMAL mg/dL [facility] Urine Bilirubin NEGATIVE NEGATIVE mg/dl [facility] Urine Ketones 80(A) NEGATIVE mg/dL [facility] Ur Specific [place] 1.033(H) 1.005 - 1.025 [facility] Urine Blood NEGATIVE NEGATIVE mg/dl [facility] Urine pH 5.0 5.0 - 8.0 [facility] Urine Protein 30(A) NEGATIVE mg/dL [facility] Urine Urobilinogen 2(A) NORMAL mg/dL [facility] Urine Nitrite NEGATIVE NEGATIVE [facility] Ur Leukocyte Esterase NEGATIVE NEGATIVE Hsaylee/ul [facility] Ur Microscopic Review Indicated or Ordered [facility] Urine RBC 1 0 - 2 /HPF [facility] Urine WBC 3 0 - 2 /HPF [facility] Urine Bacteria Rare /HPF [facility] Urine Mucus Marked /LPF [facility] Ur Squamous Epith Cells Few /HPF [facility] 01/17/2020 11:5 9 AM CDT 01/17/2020 12:22 PM CDT Narrative [facility] - 01/17/2020 12:59 PM CDT Indication(s) for ordering ?? Pain-pelv/flank/suprapubc BK Clean catch Resulting Agency Comment ER Nina ADORNO LAB URINE ORDERABLES Final R esult [facility] [address] [place] [address], [facility] [phone] documented in this encounter Visit Diagnoses Not on filedocumented in this encounter Care Teams Hoop Expander Relationship Specialty Start Date End Date Magy Medina NP PCP - General 05/10/19 documented as of this encounter
--- OUTSIDE RECORDS SUMMARY | 2024-06-05 20:40 | XMS_ITS | Encounter Summary ---
Author Organization [facility] Healthcare Address [address] [place] [address] Care Team Providers Care Paper Products Supervisor Name Role Phone Magy Medina NP Primary Care Provider [phone] Encounter Details Date Type Department Care Team (Late st Contact Info) Description 07/27/2023 Plan of Care Documentation [facility] OP Physical Therapy [address] [place] [id number] Social History Tobacco Use Types Packs/Day Years Used Date Smoking Tobacco: Never Smokeless Tobacco: Never Personal Safety Answer Date Recorded Getting School Help Needed Not on file 05/26 Comments No Sex and Gender Information Value Date Recorded Sex Assigned at Not on file Legal Sex Female 6:43 PM TOBACCO PACKER Gender Identity Not on file Sexual Orientation Not on file documented as of this encounter Plan of Treatment Not on file documented as of this encounter Visit Diagnoses Not on filedocumented in this encounter Care Teams Paper Products Supervisor Relationship Specialty Start Date End Date Magy Medina NP PCP - General 05/10/19 documented as of this encounter
--- OUTSIDE RECORDS SUMMARY | 2024-06-05 20:40 | XMS_ITS | Encounter Summary ---
Author Organization [facility] Address [address] [place] [address] Care Team Providers Care Fisheries Biologist Name Role Phone Magy Medina NP Primary Care Provider [phone] Encounter Details Date Type Department Care Team (Latest Contact Info) Description 12/07/2021 10:30 AM CDT - 12/07/2021 11:59 PM CDT Hospital Encounter [facility] [address] [place] [address] Discharge Disposition: Discharge to home or self care Social History Tobacco Use Types Packs/Day Years Used Date Smoking Tobacco: Never Smokeless Tobacco: Never Comments Unknown Sex and Gender Information Value Date Recorded Sex Assigned at Not on file Legal Sex Female 6:43 PM COMMERCIAL INTERN Gender Identity Not on file Sexual Orientation Not on file documented as of this encounter Medications at Time of Discharge albuterol (PROAIR DIGIHALER) 90 mcg/actuation inhaler Inhale 2 Inhalation 2 (two) times a day as needed 06/11/2018 cetirizine (ZyrTEC) 10 mg tablet Take 10 mg by mouth daily 09/25/2020 documented as of this encounter Discharge Disposition Disposition Code Departure Means Destination Discharge to home or self care documented in this encounter Plan of Treatment [...] it. Electronically signed by: Elder Petersen MD [facility] 12/07/2021 5:30 PM CDT EXAMINATION: XR SCOLIOSIS [...] it. Electronically signed by: Elder Petersen MD Delmar Forde MD PhD IMG XR PROCEDURES Fi nal Result documented in this encounter Visit Diagnoses Not on filedocumented in this encounter Care Teams Fisheries Biologist Relationship Specialty Start Date End Date Magy Medina NP PCP - General 05/10/19 documented as of this encounter
--- OUTSIDE RECORDS SUMMARY | 2024-06-05 20:40 | XMS_ITS | Referral Summary ---
Author Organization [facility] Address [address] [place] [phone] Care Team Providers Care Used Car Make Ready Worker Name Role Phone Lissypoonammario Magy GARIBAY Primary Care Provider [phone] Allergies Active Allergy Reactions Criticality Noted Date Comments Latex Rash Medium 02/14/2017 Medications albuterol (PROAIR DIGIHALER) 90 mcg/actuation inhaler Inhale 2 Inhalation 2 (two) times a day as needed 9 Active cetirizine (ZyrTEC) 10 mg tablet Take 10 mg by mouth daily 1 Active ondansetron ODT (ZOFRAN-ODT) 4 mg disintegrating tablet Take 1 tablet (4 mg total) by mouth every 8 (eight) hours as needed for nausea or vomiting 20 tablet 2 Active Hospital, Clinic, or Other Facility Administered Medication Ordered Dose Route Frequency Start Date End Date Status meloxicam (MOBIC) tablet 15 mg 15 mg oral Daily 04/06/2021 Active Active Problems No known active problems Social History Tobacco Use Types Packs/Day Years Used Date Smoking Tobacco: Never Smokeless Tobacco: Never Personal Safety Answer Date Recorded Getting School Help Needed Not on file 05/26 Comments No Sex and Gender Information Value Date Recorded Sex Assigned at Not on file Legal Sex Female 6:43 PM WEDDING TRANSPORTATION DRIVER Gender Identity Not on file Sexual Orientation Not on file Last Filed Vital Signs Vital Sign Reading Time Taken Comments Blood Pressure 119/85 04/20/2022 12:33 PM WEDDING TRANSPORTATION DRIVER Pulse 88 04/20/2022 12:33 PM WEDDING TRANSPORTATION DRIVER Temperature 37.3 ??C (99.2 ??F) 04/20/2022 1 0:40 AM WEDDING TRANSPORTATION DRIVER Respiratory Rate 18 04/20/2022 12:3 3 PM WEDDING TRANSPORTATION DRIVER Oxygen Saturation 99% 04/20/2022 12: 33 PM WEDDING TRANSPORTATION DRIVER Inhaled Oxygen Concentration - - Weight 88.9 kg (195 lb 15.8 oz) 04/20/2022 8:35 AM WEDDING TRANSPORTATION DRIVER Height 157.5 cm (5' 2 ) 04/20/2022 8:35 AM WEDDING TRANSPORTATION DRIVER Body Mass Index 35.85 04/20/2022 8:35 AM WEDDING TRANSPORTATION DRIVER Plan of Treatment Not on file Insurance [facility] Care Teams Used Car Make Ready Worker Relationship Specialty Start Date End Date Magy Medina NP PCP - General 05/10/19
--- OUTSIDE RECORDS SUMMARY | 2024-06-05 20:40 | XMS_ITS | Encounter Summary ---
Author Organization [facility] Address [address] [place] [address] Care Team Providers Care Funeral Home Director Name Role Phone Magy Medina NP Primary Care Provider [phone] Reason for Referral * Diagnostic Imaging (Routine) - Closed Specialty Diagnoses / Procedures Referred By Contac t Referred To Contact Diagnoses Cervical radiculopathy Procedures XR Spine Cervical 2 or 3 Views Magy Medina NP Phone: tel: fax: [address] [phone] Referral ID Status Reason Start Date Expiration Date Visits Re quested Visits Authorized [id number] Closed 05/26/2023 06/24/2024 1 1 RNATIONAL CONTROLLER Reason for Visit * Diagnostic Imaging (Routine) - Closed Specialty Diagnoses / Procedures Referred By Contac t Referred To Contact Diagnoses Cervical radiculopathy Procedures XR Spine Cervical 2 or 3 Views Magy Medina NP Phone: tel: fax: [address] [phone] Referral ID Status Reason Start Date Expiration Date Visits Re quested Visits Authorized [id number] Closed 05/26/2023 06/24/2024 1 1 Encounter Details Date Type Department Care Team (Latest Contact Info) Description 05/26/2023 8:52 AM INTERNATIONAL CONTROLLER - 05/26/2023 11:59 PM INTERNATIONAL CONTROLLER Hospital Encounter [facility] Diagnostic Imaging [address] [place] [address] Cervical radiculopathy Discharge Disposition: Discharge to home or self care Social History Tobacco Use Types Packs/Day Years Used Date Smoking Tobacco: Never Smokeless Tobacco: Never Personal Safety Answer Date Recorded Getting School Help Needed Not on file 05/26 Comments No Sex and Gender Information Value Date Recorded Sex Assigned at Not on file Legal Sex Female 6:43 PM INTERNATIONAL CONTROLLER Gender Identity Not on file Sexual Orientation [...] for nausea or vomiting 20 tablet 04/20/2022 documented as of this encounter Discharge Disposition Disposition Code Departure Means Destination Discharge to home or self care documented in this encounter Plan of Treatment Not on file documented as of this encounter Procedures Procedure Name Priority Date/Time Associated Diagnosis Comments XR SPINE CERVICAL 2 OR 3 VIEWS Schedule Routine, Read Routine (OP Routine) 05/26/2023 9:10 AM INTERNATIONAL CONTROLLER Cervical radiculopathy documented in this encounter Results * XR Spine Cervical 2 or 3 Views (05/26/2023 9:10 AM INTERNATIONAL CONTROLLER) Anatomical Region Laterality Modality Spine N/A Computed Radiogr aphy 05/26/2023 9:20 AM INTERNATIONAL CONTROLLER Narrative 05/26/2023 9:22 AM INTERNATIONAL CONTROLLER EXAM DESCRIPTION: XR SPINE CERVICAL 2 OR 3 VIEWS REASON FOR STUDY: cervical radiculopathy ?? Cervical radiculopathy/Pt states increasing headaches x2 yrs/denies injury/HX Scoliosis ? TECHNIQUE: 3 ??radiographic view(s) of the ??cervical ??spine. COMPARISON: None available FINDINGS: ALIGNMENT: Reversal of the normal cervical lordosis with relative straightening of the cervical spine that may be secondary to patient positioning or muscle spasm. VERTEBRAE: Cervical vertebral body heights are intact. ??No compression fracture. ??No aggressive appearing osseous lesion. ??Significant facet arthropathy. ?? DISCS: Well preserved. SOFT TISSUES: Prevertebral soft tissues are unremarkable. ?? IMPRESSION: Reversal of the normal cervical lordosis that may be secondary to patient positioning or muscle spasm. No compression fracture or traumatic malalignment. THIS IS AN ELECTRONICALLY VERIFIED FINAL REPORT 05/26/2023 9:22 AM - Electronically signed by ??Sandi Vergara D.O. AC D: ??05/26/2023 9:22 AM T: Report ID: [id number] Reading Location: ??[id number] Procedure Note Sandi Vergara DO - 05/26/2023 EXAM DESCRIPTION: XR SPINE CERVICAL 2 OR 3 VIEWS REASON FOR STUDY: cervical radiculopathy Cervical radiculopathy/Pt states increasing headaches x2 yrs/deniesinjury/HX Scoliosis TECHNIQUE: 3 radiographic view(s) of the cervical spine. COMPARISON: None available FINDINGS: ALIGNMENT: Reversal of the normal cervical lordosis withrelative straightening of the cervical spine that may be secondary to patient positioning or muscle spasm. VERTEBRAE: Cervical vertebral body heights are intact. No compression fracture. No aggressive appearing osseous lesion. Significant facet arthropathy. DISCS: Well preserved. SOFT TISSUES: Prevertebral soft tissues are unremarkable. IMPRESSION: Reversal of the normal cervical lordosis that may be secondary to patient positioning or muscle spasm. No compression fracture or traumaticmalalignment. THIS IS AN ELECTRONICALLY VERIFIED FINAL REPORT 05/26/2023 9:22 AM - Electronically signed by Sandi Vergara D.O. AC T: Report ID: [id number] Reading Location: [id number] us Magy Medina NP IMG XR PROCEDURES Final Resul t documented in this encounter Visit Diagnoses Diagnosis Cervical radiculopathy Brachial neuritis or radiculitis nos documented in this encounter Care Teams Funeral Home Director Relationship Specialty Start Date End Date Magy Medina NP PCP - General 05/10/19 documented as of this encounter
--- OUTSIDE RECORDS SUMMARY | 2024-06-05 20:40 | XMS_ITS | Encounter Summary ---
Author Organization [facility] Healthcare Address [address] [place] [address] Care Team Providers Care Customer Marketing Assistant Name Role Phone Unavailable Primary Care Provider Unavailabl e Encounter Details Date Type Department Care Team (Late st Contact Info) Description 07/31/2015 10:25 AM MOLASSES AND CARAMEL OPERATOR Hospital Encounter [facility] Festus, Tanika Jung, DO [address] [place] [address] Encounter for screening for malignant neoplasm of cervix Social History Tobacco Use Types Packs/Day Years Used Date Smoking Tobacco: Never Assessed Comments Unknown Sex and Gender Information Value Date Recorded Sex Assigned at Not on file Legal Sex Female 6:43 PM MOLASSES AND CARAMEL OPERATOR Gender Identity Not on file Sexual Orientation Not on file documented as of this encounter Plan of Treatment Not on file documented as of this encounter Procedures Procedure Name Priority Date/Time Associated Diagnosis Comments THIN PREP REFLEX HPV SCREEN Routine 07/31/2015 10:25 AM MOLASSES AND CARAMEL OPERATOR THIN PREP GC CHLAMYDIA Routine 07/31/2015 10:25 AM MOLASSES AND CARAMEL OPERATOR documented in this encounter Results * THIN PREP GC CHLAMYDIA (07/31/2015 10:25 AM MOLASSES AND CARAMEL OPERATOR) C. trachomatis RNA Negative Negative 08/04/2015 3:29 AM MOLASSES AND CARAMEL OPERATOR [facility] HISTORICAL RESULTS N. gonorrhoeae RNA Negative Negative 08/04/2015 3:29 AM MOLASSES AND CARAMEL OPERATOR [facility] HISTORICAL RESULTS Comment: INTERPRETIVE INFORMATION: CT/NG by TMA, ThinPrep ?? This test is intended for medical purposes only and is not ?? valid for the evaluation of suspected sexual abuse or for ?? other forensic purposes. In certain contexts, culture may ?? be required to meet applicable laws and regulations for ?? diagnosis of C. trachomatis and N. gonorrhoeae infections. ?? Per 2014 CDC recommendations, this test does not include ?? confirmation of positive results by an alternative nucleic ?? acid target. ?? Performed by [facility], ?? [address], [facility] [place] [address] ?? [email or web address], Jaylen Rudolph MD, Lab. Director ?? 07/31/2015 10:2 5 AM MOLASSES AND CARAMEL OPERATOR 07/31/2015 4:07 PM MOLASSES AND CARAMEL OPERATOR Tanika Mortensen DO LAB BLOOD ORDERABLES F inal Result [facility] HISTORICAL RESULTS * THIN PREP REFLEX HPV SCREEN (07/31/2015 10:25 AM MOLASSES AND CARAMEL OPERATOR) Thin Prep Pap Smear SEE BELOW () 08/10 4:09 PM MOLASSES AND CARAMEL OPERATOR [facility] HISTORICAL RESULTS Comment: Business Process Engineer ThinPrep HPVR Cytology Final Report ? ThinPrep Pap Specimen Source ? Cervix/Endocervix ?? Specimen Adequacy ? Satisfactory for interpretation, endocervical cells ?? (transformation zone) present. ?? Interpretation ? Negative for intraepithelial lesion or malignancy. ?? 08/11/15 Landscape Account Manager: DAVID Cee(ASCP) ?? 08/11/15 ?Verified By: DAVID Cee(ASCP) ? electronic signature ?? [facility], Department of Pathology ?? For questions regarding this case, ?? call ext. [phone] ?? CPT Code(s) ? 39986 ?? Clinical History ? LMP: [id number] ?? : N ?? : N ?? IUD: N ?? Hormone Therapy: N ?? Postmenopausal: N ?? Previous surgery date and type: N ?? Hysterectomy: N ?? Chemotherapy: N ?? TOD Exposure: N ?? Radiation: N ?? Previous Abnormal Pap? Details: N ?? Diagnostic or Screening Pap Test: Screening ?? Performed by [facility], ?? [address] [place] [address] ?? [email or web address], Jaylen Rudolph MD - Lab. Director ?? 07/31/2015 10:2 5 AM MOLASSES AND CARAMEL OPERATOR 07/31/2015 4:07 PM MOLASSES AND CARAMEL OPERATOR Tanika Mortensen DO LAB PATHOLOGY ORDERABL ES Final Result [facility] HISTORICAL RESULTS documented in this encounter Visit Diagnoses Diagnosis Encounter for screening for malignant neoplasm of cervix documented in this encounter
--- OUTSIDE RECORDS SUMMARY | 2024-06-05 20:40 | XMS_ITS | Encounter Summary ---
Author Organization [facility] Address [address] [place] [address] Care Team Providers Care Data Collector Name Role Phone Magy Medina NP Primary Care Provider [phone] Encounter Details Date Type Department Care Team (Late st Contact Info) Description 05/18/2019 9:28 AM HEEL SPLITTER - 05/18/2019 1:12 PM HEEL SPLITTER Hospital Encounter [address] [address] Unknown, Noam Feldman, DO [address] [place] [address] Discharge Disposition: Discharge to home or self care Social History Tobacco Use Types Packs/Day Years Used Date Smoking Tobacco: Never Assessed Comments Unknown Sex and Gender Information Value Date Recorded Sex Assigned at Not on file Legal Sex Female 6:43 PM HEEL SPLITTER Gender Identity Not on file Sexual Orientation Not on file documented as of this encounter Last Filed Vital Signs Vital Sign Reading Time Taken Comments Blood Pressure 115/68 05/18/2019 9:29 AM HEEL SPLITTER Pulse 75 05/18/2019 9:29 AM HEEL SPLITTER Temperature 36.8 ??C (98.3 ??F) 05/18/2019 9:29 AM CS T Respiratory Rate - - Oxygen Saturation 100% 05/18/2019 9:29 AM HEEL SPLITTER Inhaled Oxygen Concentration - - Weight 83 kg (182 lb 15.7 oz) 05/18/2019 9:29 AM HEEL SPLITTER Height 157.5 cm (5' 2 ) 05/18/2019 9:29 AM HEEL SPLITTER Body Mass Index 33.47 05/18/2019 9:29 AM HEEL SPLITTER documented in this encounter Medications at Time [...] Procedure Name Priority Date/Time Associated Diagnosis Comments CBC WITH AUTO DIFFERENTIAL Routine 05/18/2019 10:52 AM HEEL SPLITTER ANTIBODY SCREEN Routine 05/18/2019 10:52 AM HEEL SPLITTER TYPE AND SCREEN Routine 05/18/2019 10:52 AM HEEL SPLITTER HCG, BLOOD, QUANTITATIVE Routine 05/18/2019 10:52 AM HEEL SPLITTER COMPREHENSIVE METABOLIC PANEL Routine 05/18/2019 10:52 AM HEEL SPLITTER URINALYSIS, COMPLETE W/REFLEX TO CULTURE Routine 05/18/2019 10:08 AM HEEL SPLITTER US ABDOMEN COMPLETE W LIVER DOPPLER (C) 05/18/2019 12:00 AM HEEL SPLITTER US OB TRANSVAGINAL 05/18/2019 12 :00 AM HEEL SPLITTER documented in this encounter Results * (ABNORMAL) hCG, blood, quantitative (05/18/2019 10:52 AM HEEL SPLITTER) Beta HCG, Quant 18,825.0( H) 0.0 - 4.0 mIU/mL [facility] Comment: Female Reference Intervals(): ??Negative ? < [...] interpretable as a tumor marker in females. 05/18/2019 10:5 2 AM HEEL SPLITTER 05/18/2019 10:55 AM HEEL SPLITTER Narrative Resulting Agency Comment ER us Noam Longoria DO LAB BLOOD ORDERABLES Final Res ult [id number] [place] [address], [facility] [[email or web address]] [phone] * (ABNORMAL) Comprehensive metabolic panel (05/18/2019 10:52 AM HEEL SPLITTER) Sodium 140 135 - 145 mmol/L [facility] Potassium 3.6 3.3 - 5.1 mmol/L [facility] Chloride 106 96 - 108 mmol/L [facility] Carbon Dioxide 25 22 - 32 mmol/L [facility] Anion Gap 9 7 - 16 [facility] Glucose 93 70 - 100 mg/dL [facility] BUN 7(L) 8 - 25 mg/dL [facility] Creatinine 0.6 0.5 - 1.1 mg/dL [facility] Comment: NOTE: Estimated GFR (Cockroft-Gault) will NOT be calculated unless patient Height and Weight were entered. Also, Kidney Disease Stage (GFR) and Estimated GFR (Cockroft-Gault) will NOT be calculated if Creatinine result is <0.2. Kidney Disease Stage >90 mL/MIN [facility] Comment: NOTE; ??The GFR is an estimated [...] failure or on dialysis Est GFR (Cockcroft-G) 141 ml/MIN [facility] Comment: Estimated GFR(Cockroft-Gault)is used to calculate patient medication dosage Calcium 8.9 8.6 - 10.3 mg/dL [facility] Total Protein 7.2 6.4 - 8.3 g/dL [facility] Albumin 4.0 3.5 - 5.0 g/dL [facility] Globulin 3.2 2.3 - 3.5 gm/dL [facility] Albumin/Globulin Ratio 1.3 1.1 - 1.8 [facility] Total Bilirubin <0.2 0.0 - 1.2 mg/dL [facility] AST 13 0 - 32 U/L [facility] ALT 11 0 - 33 U/L [facility] Alkaline Phosphatase 56 35 - 104 U/L [facility] 05/18/2019 10:5 2 AM HEEL SPLITTER 05/18/2019 10:55 AM HEEL SPLITTER Narrative Resulting Agency Comment ER us Noam Longoria DO LAB BLOOD ORDERABLES Final Res ult [facility] [address] [phone] * Antibody screen (05/18/2019 10:52 AM HEEL SPLITTER) Antibody Screen NEGATIVE [facility] 05/18/2019 10:5 2 AM HEEL SPLITTER 05/18/2019 10:55 AM HEEL SPLITTER Narrative Resulting Agency Comment ER [employer] LAB BLOOD BANK TEST ORDERABLES Final Result [facility] [address] [phone] * Type and screen (05/18/2019 10:52 AM HEEL SPLITTER) Pathologist [facility] Blood Type BP [facility] 05/18/2019 10:5 2 AM HEEL SPLITTER 05/18/2019 10:55 AM HEEL SPLITTER Narrative [facility] - 05/18/2019 11:49 AM HEEL SPLITTER N Resulting Agency Comment ER Noam [employer] LAB BLOOD BANK TEST ORDERABLES Final Result [facility] [address] [phone] * CBC with auto differential (05/18/2019 10:52 AM HEEL SPLITTER) Pathologist [facility] WBC 6.5 3.8 - 9.9 X10 3/ul [facility] RBC 4.64 3.90 - 5.20 x10 6/ul [facility] Hemoglobin 13.1 11.9 - 15.5 g/dL [facility] Hct 39.7 35.6 - 45.5 % [facility] MCV 85.6 81.3 - 96.4 fl [facility] MCH 28.2 27.1 - 33.3 pg [facility] MCHC 33.0 32.3 - 35.7 g/dl [facility] RDW 13.4 11.1 - 14.9 % [facility] Plt Count 295 150 - 400 x10 3/ul [facility] MPV 9.6 9.1 - 12.3 fl [facility] Neut % 57.0 % [facility] Immature Gran % 0.0 % [facility] Lymph % 29.1 % [facility] [place] % 8.0 % [facility] Eos % 5.3 % [facility] AUTO BASO % 0.6 % [facility] NEUTROPHIL ABS # 3.7 1.7 - 6.5 x10 3/ul [facility] Immature Gran # 0.0 0.0 - 0.1 x10 3/ul [facility] Absolute Lymphs (auto) 1.9 0.8 - 3.3 x10 3/ul [facility] Absolute Monos (auto) 0.5 0.2 - 0.8 x10 3/ul [facility] Absolute Eos (auto) 0.3 0.0 - 0.5 x10 3/ul [facility] BASOPHIL ABS # 0.0 0.0 - 0.1 x10 3/ul [facility] Nucleat RBC Rel Count 0.0 #/100WBC [facility] NRBC abs 0.00 0.00 - 0.01 x10 3/ul [facility] Absolute Neutrophils 3,700 200 - 8,000 /ul [facility] 05/18/2019 10:5 2 AM HEEL SPLITTER 05/18/2019 10:55 AM HEEL SPLITTER Narrative Resulting Agency Comment ER us Noam Longoria DO LAB BLOOD ORDERABLES Final Res ult [facility] [address] [place] [address], [facility] [[email or web address]] [phone] * (ABNORMAL) URINALYSIS, COMPLETE W/REFLEX TO CULTURE (05/18/2019 10:08 AM HEEL SPLITTER) Ur Collection Type CLEAN CATCH [facility] Ur Culture Indicated? C S NOT INDICATED [facility] Urine Color YELLOW YELLOW [facility] Urine Clarity Slightly-Genie udy CLEAR [facility] Urine Glucose (UA) NORMAL NORMAL mg/dL [facility] Urine Bilirubin NEGATIVE NEGATIVE mg/dl [facility] Urine Ketones NEGATIVE NEGATIVE mg/dL [facility] Ur Specific [place] 1.027(H) 1.005 - 1.025 [facility] Urine Blood NEGATIVE NEGATIVE mg/dl [facility] Urine pH 7.0 5.0 - 8.0 [facility] Urine Protein NEGATIVE NEGATIVE mg/dL [facility] Urine Urobilinogen NORMAL NORMAL mg/dL [facility] Urine Nitrite NEGATIVE NEGATIVE [facility] Ur Leukocyte Esterase NEGATIVE NEGATIVE [place]aylee/ul [facility] Ur Microscopic Review Indicated or Ordered [facility] Urine RBC 1 0 - 2 /HPF [facility] Urine WBC 1 0 - 2 /HPF [facility] Urine Mucus RARE /LPF [facility] Ur Squamous Epith Cells Few /HPF [facility] 05/18/2019 10:0 8 AM HEEL SPLITTER 05/18/2019 10:23 AM HEEL SPLITTER Narrative [facility] - 05/18/2019 10:31 AM HEEL SPLITTER Indication(s) for ordering ?? CL Clean catch Resulting Agency Comment ER us Noam Longoria DO LAB URINE ORDERABLES Final Res ult Performing Organization Address City/State/[facility] Co de Phone Number [facility] [address] [phone] * US Abdomen Complete W Liver Duplex (C) (05/18/2019 12:00 AM HEEL SPLITTER) Anatomical Region Laterality Modality Abdomen Right Ultrasound 05/18/2019 10:5 2 AM HEEL SPLITTER Narrative 05/18/2019 11:00 AM HEEL SPLITTER Patient Name: MAY,JENNY S ?Ordering Dr: Florina Franks ANP ?? D.O.B: 1990 ? Exam Date: 05/18/ ?? 0000 ?? Age: 28 ?Sex: Female ? MR#: [id number] ?? Loc: ? RADIOLOGY REPORT ?? Order #[id number] ?? Ultrasound ? US Duplex Scan Limited ? Signed ?? EXAM DESCRIPTION: ??US OB Transvaginal; US Duplex Scan Limited ? REASON FOR STUDY: ??, now presenting with pelvic pain, onset 3 weeks ?? ago and vaginal spotting, onset 1 week ago ? Beta-hCG: ??Unknown ? TECHNIQUE: ??Transvaginal images acquired of the pelvis. ? COMPARISON: ??OB ultrasound 05/10/2019 ? FINDINGS: ? Clinical gestational age: ??7 weeks, 1 day ? Clinical estimated Due Date: 01/03/2020 ? Intrauterine gestational sac: ??Present ? Yolk sac: ??Present ? Subchorionic bleed: There is a subchorionic hemorrhage in the left aspect of ?? the uterus, measuring 3.5 x 0.6 cm. ? [place]-rump length: ??0.29 cm ? heart rate: ??122 bpm ? Gestational age by this ultrasound: ??5 weeks, 6 days ? WILLIAN by this ultrasound: ??01/12/2020 ? Uterus: The uterus measures 12.0 x 7.8 x 5.0 cm. ? Right Ovary/Adnexa: The right ovary measures 3.9 x 1.9 x 1.6 cm. There is ?? documentation of color Doppler flow in the right ovary. ??There is a likely ?? corpus luteum in the right ovary. ? Left Ovary/Adnexa: The left ovary measures 2.9 x 2.9 x 2.4 cm. There is ?? documentation of color Doppler flow in the left ovary. ??The left ovary appears ?? unremarkable. ??No adnexal mass. ? Free Fluid: None. ? Other Findings: None. ? IMPRESSION: ? 1. ??Single live intrauterine with estimated gestational age by this ?? ultrasound of 5 weeks, 6 days, giving estimated due date of 01/12/2020. ? 2. ?? cardiac activity is present with heart rate of 122 beats per ?? minute. ? 3. ??Subchorionic hemorrhage in the left aspect of the uterus, measuring 3.5 x ?? 0.6 cm. ??Recommend attention on follow-up examinations. ? THIS IS AN ELECTRONICALLY VERIFIED FINAL REPORT ?? 05/18/2019 11:00 AM - Electronically signed by Al Huynh M.D. ?? Al Huynh M.D. ? CN ?? D: ??05/18/2019 11:00 AM ?? T: ? Report ID: [id number] ?? Reading Location: ??[id number] ? REPORT ELECTRONICALLY SIGNED IN OTHER VENDOR SYSTEM ?? Resulting Agency Comment P Procedure Note Al Huynh MD - 05/18/2019 Patient Name: JENNY WANG Dr: Florina Franks D.O.B: 1990 Exam Date: 05/18/19 0000 Age: 28 Sex: Female MR#: [id number] Loc: RADIOLOGY REPORT Order #[id number] Ultrasound US Duplex Scan Limited Signed EXAM DESCRIPTION: US OB Transvaginal; US Duplex Scan Limited REASON FOR STUDY: , now presenting with pelvic pain, onset 3weeks ago and vaginal spotting, onset 1 week ago Beta-hCG: Unknown TECHNIQUE: Transvaginal images acquired of the pelvis. COMPARISON: OB ultrasound 05/10/2019 FINDINGS: Clinical gestational age: 7 weeks, 1 day Clinical estimated Due Date: 01/03/2020 Intrauterine gestational sac: Present Yolk sac: Present Subchorionic bleed: There is a subchorionic hemorrhage in the left aspectof the uterus, measuring 3.5 x 0.6 cm. [place]-rump length: 0.29 cm heart rate: 122 bpm Gestational age by this ultrasound: 5 weeks, 6 days WILLIAN by this ultrasound: 01/12/2020 Uterus: The uterus measures 12.0 x 7.8 x 5.0 cm. Right Ovary/Adnexa: The right ovary measures 3.9 x 1.9 x 1.6 cm. There is documentation of color Doppler flow in the right ovary. There is alikely corpus luteum in the right ovary. Left Ovary/Adnexa: The left ovary measures 2.9 x 2.9 x 2.4 cm. There is documentation of color Doppler flow in the left ovary. The left ovaryappears unremarkable. No adnexal mass. Free Fluid: None. Other Findings: None. IMPRESSION: 1. Single live intrauterine with estimated gestational age bythis ultrasound of 5 weeks, 6 days, giving estimated due date of 01/12/2020. 2. cardiac activity is present with heart rate of 122 beatsper minute. 3. Subchorionic hemorrhage in the left aspect of the uterus, measuring3.5 x 0.6 cm. Recommend attention on follow-up examinations. THIS IS AN ELECTRONICALLY VERIFIED FINAL REPORT 05/18/2019 11:00 AM - Electronically signed by Al OROZCO T: Report ID: [id number] Reading Location: [place] [address] REPORT ELECTRONICALLY SIGNED IN OTHER VENDOR SYSTEM us Florina Franks [employer] IMG US PROCEDURES Final Result * US Ob Transvaginal (05/18/2019 12:00 AM HEEL SPLITTER) Anatomical Region Laterality Modality Abdomen N/A Ultrasound 05/18/2019 10:5 2 AM HEEL SPLITTER Narrative 05/18/2019 11:00 AM HEEL SPLITTER Patient Name: JENNY WANG ?Ordering Dr: Florina Franks ANP ?? D.O.B: 1990 ? Exam Date: 05/18/19 ?? 0000 ?? Age: 28 ?Sex: Female ? MR#: [id number] ?? Loc: ? RADIOLOGY REPORT ?? Order #[id number] ?? Ultrasound ? US OB Transvaginal ? Signed ?? EXAM DESCRIPTION: ??US OB Transvaginal; US Duplex Scan Limited ? REASON FOR STUDY: ??, now presenting with pelvic pain, onset 3 weeks ?? ago and vaginal spotting, onset 1 week ago ? Beta-hCG: ??Unknown ? TECHNIQUE: ??Transvaginal images acquired of the pelvis. ? COMPARISON: ??OB ultrasound 05/10/2019 ? FINDINGS: ? Clinical gestational age: ??7 weeks, 1 day ? Clinical estimated Due Date: 01/03/2020 ? Intrauterine gestational sac: ??Present ? Yolk sac: ??Present ? Subchorionic bleed: There is a subchorionic hemorrhage in the left aspect of ?? the uterus, measuring 3.5 x 0.6 cm. ? [place]-rump length: ??0.29 cm ? heart rate: ??122 bpm ? Gestational age by this ultrasound: ??5 weeks, 6 days ? WILLIAN by this ultrasound: ??01/12/2020 ? Uterus: The uterus measures 12.0 x 7.8 x 5.0 cm. ? Right Ovary/Adnexa: The right ovary measures 3.9 x 1.9 x 1.6 cm. There is ?? documentation of color Doppler flow in the right ovary. ??There is a likely ?? corpus luteum in the right ovary. ? Left Ovary/Adnexa: The left ovary measures 2.9 x 2.9 x 2.4 cm. There is ?? documentation of color Doppler flow in the left ovary. ??The left ovary appears ?? unremarkable. ??No adnexal mass. ? Free Fluid: None. ? Other Findings: None. ? IMPRESSION: ? 1. ??Single live intrauterine with estimated gestational age by this ?? ultrasound of 5 weeks, 6 days, giving estimated due date of 01/12/2020. ? 2. ?? cardiac activity is present with heart rate of 122 beats per ?? minute. ? 3. ??Subchorionic hemorrhage in the left aspect of the uterus, measuring 3.5 x ?? 0.6 cm. ??Recommend attention on follow-up examinations. ? THIS IS AN ELECTRONICALLY VERIFIED FINAL REPORT ?? 05/18/2019 11:00 AM - Electronically signed by Al Huynh M.D. ?? Al Huynh M.D. ? CN ?? D: ??05/18/2019 11:00 AM ?? T: ? Report ID: [id number] ?? Reading Location: ??[id number] ? REPORT ELECTRONICALLY SIGNED IN OTHER VENDOR SYSTEM ?? Resulting Agency Comment P Procedure Note Al Huynh MD - 05/18/2019 Patient Name: JENNY WANG Dr: Florina Franks D.O.B: 1990 Exam Date: 05/18/19 0000 Age: 28 Sex: Female MR#: [id number] Loc: RADIOLOGY REPORT Order #[id number] Ultrasound US OB Transvaginal Signed EXAM DESCRIPTION: US OB Transvaginal; US Duplex Scan Limited REASON FOR STUDY: , now presenting with pelvic pain, onset 3weeks ago and vaginal spotting, onset 1 week ago Beta-hCG: Unknown TECHNIQUE: Transvaginal images acquired of the pelvis. COMPARISON: OB ultrasound 05/10/2019 FINDINGS: Clinical gestational age: 7 weeks, 1 day Clinical estimated Due Date: 01/03/2020 Intrauterine gestational sac: Present Yolk sac: Present Subchorionic bleed: There is a subchorionic hemorrhage in the left aspectof the uterus, measuring 3.5 x 0.6 cm. [place]-rump length: 0.29 cm heart rate: 122 bpm Gestational age by this ultrasound: 5 weeks, 6 days WILLIAN by this ultrasound: 01/12/2020 Uterus: The uterus measures 12.0 x 7.8 x 5.0 cm. Right Ovary/Adnexa: The right ovary measures 3.9 x 1.9 x 1.6 cm. There is documentation of color Doppler flow in the right ovary. There is alikely corpus luteum in the right ovary. Left Ovary/Adnexa: The left ovary measures 2.9 x 2.9 x 2.4 cm. There is documentation of color Doppler flow in the left ovary. The left ovaryappears unremarkable. No adnexal mass. Free Fluid: None. Other Findings: None. IMPRESSION: 1. Single live intrauterine with estimated gestational age bythis ultrasound of 5 weeks, 6 days, giving estimated due date of 01/12/2020. 2. cardiac activity is present with heart rate of 122 beatsper minute. 3. Subchorionic hemorrhage in the left aspect of the uterus, measuring3.5 x 0.6 cm. Recommend attention on follow-up examinations. THIS IS AN ELECTRONICALLY VERIFIED FINAL REPORT 05/18/2019 11:00 AM - Electronically signed by Al OROZCO T: Report ID: [id number] Reading Location: [place] [address] REPORT ELECTRONICALLY SIGNED IN OTHER VENDOR SYSTEM us Florina Farnks NP IMG OB US PROCEDURES Final Resu lt documented in this encounter Visit Diagnoses Not on filedocumented in this encounter Care Teams Data Collector Relationship Specialty Start Date End Date Magy Medina NP PCP - General 05/10/19 documented as of this encounter
--- OUTSIDE RECORDS SUMMARY | 2024-06-05 20:40 | XMS_ITS | Encounter Summary ---
Author Organization [facility] Address [address] [place] [address] Care Team Providers Care Regional Intermodal Truck Driver Name Role Phone Unavailable Primary Care Provider Unavailabl e Encounter Details Date Type Department Care Team (Latest Contact Info) Description 03/12/2018 12:32 AM CDT - 03/12/2018 1:55 AM CDT Hospital Encounter [facility] Enoc Mao, DO [address] [place] [address] Other chest pain; Acute upper respiratory infection; Essential (primary) hypertension; Uncomplicated asthma; Other mcfp (current) drug therapy Social History Tobacco Use Types Packs/Day Years Used Date Smoking Tobacco: Never Assessed Comments Unknown Sex and Gender Information Value Date Recorded Sex Assigned at Not on file 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 OF FINANCE Gender Identity Not on file Sexual Orientation Not on file documented as of this encounter Last Filed Vital Signs Vital Sign Reading Time Taken Comments Blood Pressure 110/79 03/12/2018 12:56 AM CDT Pulse 65 03/12/2018 12:56 AM CDT Temperature 36.7 ??C (98 ??F) 03/12/2018 12:56 AM CDT Respiratory Rate - - Oxygen Saturation 98% 03/12/2018 12:56 AM CDT Inhaled Oxygen Concentration - - Weight 79.8 kg (176 lb) 03/12/2018 12:56 AM CDT Height 157.5 cm (5' 2 ) 03/12/2018 12:56 AM CDT Body Mass Index 32.19 03/12/2018 12:56 AM CDT documented in this encounter Plan of Treatment Not on file documented as of this encounter Procedures Procedure Name Priority Date/Time Associated Diagnosis Comments CBC WITH AUTO DIFFERENTIAL Routine 03/12/2018 1:45 AM CDT TROPONIN I Routine 03/12/2018 1:45 AM CDT COMPREHENSIVE METABOLIC PANEL Routine 03/12/2018 1:45 AM CDT XR CHEST 1 VIEW Routine 03/12/2018 12:00 AM CDT documented in this encounter Results * Troponin I (03/12/2018 1:45 AM CDT) Pathologist [facility] Troponin I < 0.300 0.000 - 0.300 ng/mL Comment: Reference using CANDY Chemiluminescence ? Negative: Repeat in 4-6 hours as indicated. 03/12/2018 1:45 AM CDT 03/12/2018 1:49 AM CDT us Ana Laura Powers LINK AND LINK KNITTING MACHINE OPERATOR LAB BLOOD ORDERABLES Final Result [facility] HISTORICAL RESULTS * (ABNORMAL) Comprehensive metabolic panel (03/12/2018 1:45 AM CDT) Pathologist [facility] Sodium 139 135 - 145 mmol/L Potassium 3.2(L) 3.3 - 5.1 mmol/L Chloride 104 96 - 108 mmol/L Carbon Dioxide 26 22 - 32 mmol/L Anion Gap 9 7 - 16 Glucose 136(H) 70 - 100 mg/dL BUN 15 6 - 20 mg/dL Creatinine 0.7 0.5 - 1.1 mg/dL Comment: NOTE: Estimated GFR (Cockroft-Gault) will NOT be calculated unless patient Height and Weight were entered. Also, Kidney Disease Stage (GFR) and Estimated GFR (Cockroft-Gault) will NOT be calculated if Creatinine result is <0.2. Kidney Disease Stage > 90 mL/MIN Comment: NOTE; ??The GFR is an estimated [...] mL/min ? Kidney failure or on dialysis @ Est GFR (Cockcroft-G) 119 ml/MIN Comment: Estimated GFR(Cockroft-Gault)is used to calculate patient medication dosage Calcium 9.1 8.6 - 10.0 mg/dL Total Protein 7.1 6.4 - 8.3 g/dL Albumin 4.1 3.5 - 5.2 g/dL Globulin 3.0 2.3 - 3.5 gm/dL Albumin/Globulin Ratio 1.4 1.1 - 1.8 Total Bilirubin < 0.2 0.0 - 1.2 mg/dL AST 15 0 - 32 U/L ALT 13 0 - 33 U/L Alkaline Phosphatase 60 35 - 104 U/L 03/12/2018 1:45 AM CDT 03/12/2018 1:49 AM CDT Ana Laura Powers LINK AND LINK KNITTING MACHINE OPERATOR LAB BLOOD ORDERABLES Final Result [facility] HISTORICAL RESULTS * CBC with auto differential (03/12/2018 1:45 AM CDT) WBC 4.9 3.8 - 9.9 X10 3/ul RBC 4.25 3.90 - 5.20 x10 6/ul Hemoglobin 11.9 11.9 - 15.5 g/dL Hct 36.2 35.6 - 45.5 % MCV 85.2 81.3 - 96.4 fl MCH 28.0 27.1 - 33.3 pg MCHC 32.9 32.3 - 35.7 g/dl 03/12/2018 1:52 AM CDT [facility] HISTORICAL RESULTS RDW 12.7 11.1 - 14.9 % 03/12/2018 1:52 AM CDT [facility] HISTORICAL RESULTS Plt Count 283 150 - 400 x10 3/ul 03/12/2018 1:52 AM CDT [facility] HISTORICAL RESULTS MPV 10.1 9.1 - 12.3 fl 03/12/2018 1:52 AM CDT [facility] HISTORICAL RESULTS Neut % 63.5 % 03/12/2018 1:52 AM CDT [facility] HISTORICAL RESULTS Immature Gran % 0.2 % 8 1:52 AM CDT [facility] HISTORICAL RESULTS Lymph % 25.5 % 03/12/2018 1:52 AM CDT [facility] HISTORICAL RESULTS Bee % 7.1 % 03/12/2018 1:52 AM CDT [facility] HISTORICAL RESULTS Eos % 3.1 % 03/12/2018 1:52 AM CDT [facility] HISTORICAL RESULTS Baso % 0.6 % 03/12/2018 1:52 AM CDT [facility] HISTORICAL RESULTS Absolute Neuts (auto) 3.1 1.7 - 6.5 x10 3/ul 03/12/2018 1:52 AM CDT [facility] HISTORICAL RESULTS Immature Gran # 0.0 0.0 - 0.1 x10 3/ul 03/12/2018 1:52 AM CDT [facility] HISTORICAL RESULTS Absolute Lymphs (auto) 1.3 0.8 - 3.3 x10 3/ul 03/12/2018 1:52 AM CDT [facility] HISTORICAL RESULTS Absolute Monos (auto) 0.4 0.2 - 0.8 x10 3/ul 03/12/2018 1:52 AM CDT [facility] HISTOR[facility] RESULTS Absolute Eos (auto) 0.2 0.0 - 0.5 x10 3/ul 03/12/2018 1:52 AM CDT [facility] HISTORICAL RESULTS Absolute Basos (auto) 0.0 0.0 - 0.1 x10 3/ul Nucleat RBC Rel Count 0.0 #/100WBC Absolute Nucleated RBC 0.00 0.00 - 0.01 x10 3/ul Absolute Neutrophils 3100 200 - 8000 /ul 03/12/2018 1:45 AM CDT 03/12/2018 1:49 AM CDT us Ana Laura Powers NP LAB BLOOD ORDERABLES Final Result [facility] HISTORICAL RESULTS * XR Chest 1 View (03/12/2018 12:00 AM CDT) Anatomical Region Laterality Modality Body, Chest N/A Radiographic Ligia ging 03/12/2018 Impressions 03/12/2018 2:13 AM CDT ??No acute cardiopulmonary disease. THIS IS AN ELECTRONICALLY VERIFIED FINAL REPORT 03/12/2018 2:10 AM - Electronically signed by Les Saravia M.D., MA D: ??03/12/2018 2:10 AM T: Report ID: [id number] Reading Location: ??[id number] [EOD] Narrative 03/12/2018 2:13 AM CDT EXAM DESCRIPTION: ??Chest 1 View Portable REASON FOR STUDY: ??Chest pain tonight, worse when supine. Hx of asthma TECHNIQUE: ??Frontal radiographic view of the chest acquired. COMPARISON: ??CT chest December 22, 2014 FINDINGS: LUNGS/PLEURA: No focal consolidation or pneumothorax. No pleural effusion. HEART/MEDIASTINUM: Heart size is normal. Normal mediastinal and hilar contours. HARDWARE/LINES/TUBES: None. BONES: There is dextroscoliosis of the thoracic spine. OTHER: No other significant finding. Procedure Note Provider, Barry, - 10/24/2020 EXAM DESCRIPTION: Chest 1 View Portable REASON FOR STUDY: Chest pain tonight, worse when supine. Hx of asthma TECHNIQUE: Frontal radiographic view of the chest acquired. COMPARISON: CT chest December 22, 2014 FINDINGS: LUNGS/PLEURA: No focal consolidation or pneumothorax. No pleuraleffusion. HEART/MEDIASTINUM: Heart size is normal. Normal mediastinal and hilarcontours. HARDWARE/LINES/TUBES: None. BONES: There is dextroscoliosis of the thoracic spine. OTHER: No other significant finding. IMPRESSION: No acute cardiopulmonary disease. THIS IS AN ELECTRONICALLY VERIFIED FINAL REPORT 03/12/2018 2:10 AM - Electronically signed by Les Saravia M.D., MA T: Report ID: [id number] Reading Location: [id number] [EOD] Ana Laura Powers LINK AND LINK KNITTING MACHINE OPERATOR IMG XR PROCEDURES Fin al Result documented in this encounter Visit Diagnoses Diagnosis Other chest pain Acute upper respiratory infection Acute upper respiratory infections of unspecified site Essential (primary) hypertension Unspecified essential hypertension Uncomplicated asthma Other mcfp (current) drug therapy documented in this encounter
--- OUTSIDE RECORDS SUMMARY | 2024-06-05 20:40 | XMS_ITS | Encounter Summary ---
Author Organization [facility] Facility Care Team Providers Care Chief Wheelage Clerk Name Role Phone Magy Medina [place] Primary Care Provider [phone] Encounter Details Date Type Department Care Team (Latest Contact Info) Description 03/07/2015 Orders Only [facility] CLINCONV Provider, MD Barry [address] [place] [id number] Social History Tobacco Use Types Packs/Day Years Used Date Smoking Tobacco: Never Assessed Comments Unknown Sex and Gender Information Value Date Recorded Sex Assigned at Not on file Legal Sex Female 6:43 PM RESERVATIONS MANAGER Gender Identity Not on file Sexual Orientation Not on file documented as of this encounter Plan of Treatment Not on file documented as of this encounter Procedures Procedure Name Priority Date/Time Associated Diagnosis Comments SCAN - LABS 03/07/2015 12:00 AM CDT documented in this encounter Results * SCAN - LABS (03/07/2015 12:00 AM CDT) Narrative 03/07/2015 12:00 AM CDT Ordered by an unspecified provider. Historical Provider Final Res ult documented in this encounter Visit Diagnoses Not on filedocumented in this encounter Additional Health Concerns Infection Onset Date Last Indicated Resolved Time COVID19 Comment:Added from the Screening question BPA, identifying patients that tested positive for COVID in the last 14 days and the result is from a facility outside [facility] . 04/20/2022 04/20/2022 04/30/2022 3:05 AM RESERVATIONS MANAGER Influenza, adult 04/20/2022 04/20/2022 04/27/2022 3:05 AM RESERVATIONS MANAGER documented as of this encounter Care Teams Chief Wheelage Clerk Relationship Specialty Start Date End Date Magy Medina NP PCP - General 05/10/19 documented as of this encounter
--- OUTSIDE RECORDS SUMMARY | 2024-06-05 20:40 | XMS_ITS | Clinical Summary ---
Author Organization [facility] Address [address] [place] [id number] Care Team Providers Care Concierge Name Role Phone Lissypoonammario Magy GARIBAY Primary Care Provider [phone] Allergies Active Allergy Reactions Criticality Noted Date [...] on file Legal Sex Female 6:43 PM PUBLIC RECORDS RESEARCHER Gender Identity Not on file Sexual Orientation Not on file Obstetrics History Last Filed Vital Signs Vital Sign Reading Time Taken Comments Blood Pressure 119/85 04/20/2022 12:33 PM PUBLIC RECORDS RESEARCHER Pulse 88 04/20/2022 12:33 PM PUBLIC RECORDS RESEARCHER Temperature 37.3 ??C (99.2 ??F) 04/20/2022 1 0:40 AM PUBLIC RECORDS RESEARCHER Respiratory Rate 18 04/20/2022 12:3 3 PM PUBLIC RECORDS RESEARCHER Oxygen Saturation 99% 04/20/2022 12: 33 PM PUBLIC RECORDS RESEARCHER Inhaled Oxygen Concentration - - Weight 88.9 kg (195 lb 15.8 oz) 04/20/2022 8:35 AM PUBLIC RECORDS RESEARCHER Height 157.5 cm (5' 2 ) 04/20/2022 8:35 AM PUBLIC RECORDS RESEARCHER Body Mass Index 35.85 04/20/2022 8:35 AM PUBLIC RECORDS RESEARCHER Plan of Treatment Health Maintenance Due Date Last Done Comments Cervical Cancer Screening 1991 Depression Screening 1991 Hepatitis C Screening 1991 Varicella Vaccines (1 of 2 - 13+ 2-dose series) 10/31/2004 Regular Well Visit/Exam 18-64 10/31/2009 Influenza Vaccine (#1) 2024 04/28/2007 DTaP/Tdap/Td Vaccine (8 - Td or Tdap) 12/15/2024 12/15/2014, 12/15/2014, 04/01/1998, Additional history exists HPV Vaccines Completed 10/28/2007, 06/09, 04/28/2007 Pneumococcal vaccine <65 Aged Out No longer eligible based on patient's age to complete [place] [id number] [facility] [place] [address] [place] [address] Care Teams Concierge Relationship Specialty Start Date End Date Magy Medina NP PCP - General 05/10/19
--- OUTSIDE RECORDS SUMMARY | 2024-06-05 20:40 | XMS_ITS | Encounter Summary ---
Author Organization [facility] Address [address] [place] [address] Care Team Providers Care Deck Hand Name Role Phone Magy Medina NP Primary Care Provider [phone] Encounter Details Date Type Department Care Team (Late st Contact Info) Description 08/24/2019 7:33 PM CDT - 08/24/2019 10:30 PM CDT Hospital Encounter [address] [address] Unknown, Claude Up MD [address] [place] [phone] Discharge Disposition: Discharge to home or self care Social History Tobacco Use Types Packs/Day Years Used Date Smoking Tobacco: Never Assessed Comments Unknown Sex and Gender Information Value Date Recorded Sex Assigned at Not on file Legal Sex Female 6:43 PM CARE TEAM COORDINATOR SCHEDULER Gender Identity Not on file Sexual Orientation Not on file documented as of this encounter Last Filed Vital Signs Vital Sign Reading Time Taken Comments Blood Pressure 94/59 08/24/2019 7:38 PM CDT Pulse 78 08/24/2019 7:38 PM CDT Temperature 36.7 ??C (98.1 ??F) 08/24/2019 7:38 PM CD T Respiratory Rate - - Oxygen Saturation 100% 08/24/2019 7:38 PM CDT Inhaled Oxygen Concentration - - Weight 81.2 kg (179 lb) 08/24/2019 7:38 PM CDT Height 157.5 cm (5' 2 ) 08/24/2019 7:38 PM CDT Body Mass Index 32.74 08/24/2019 7:38 PM CDT documented in this encounter Medications [...] Diagnosis Comments CBC WITH AUTO DIFFERENTIAL Routine 08/24/2019 7:55 PM CDT HCG, BLOOD, QUANTITATIVE Routine 08/24/2019 7:55 PM CDT LIPASE Routine 08/24/2019 7:55 PM CDT COMPREHENSIVE METABOLIC PANEL Routine 08/24/2019 7:55 PM CDT URINALYSIS, COMPLETE W/REFLEX TO CULTURE Routine 08/24/2019 7:47 PM CDT INFLUENZA A/B PCR Routine 08/24/2019 7:4 3 PM CDT documented in this encounter Results * (ABNORMAL) hCG, blood, quantitative (08/24/2019 7:55 PM CDT) Beta HCG, Quant 53,316.0( H) 0.0 - 4.0 mIU/mL [facility] Comment: Female Reference Intervals(): ??Negative ? [...] interpretable as a tumor marker in females. 08/24/2019 7:55 PM CDT 08/24/2019 7:58 PM CDT Narrative Resulting Agency Comment ER Scott ADORNO LAB BLOOD ORDERABLES Final Result Performing Organization Address City/[facility]/ZIP Co de Phone Number [address] [phone] * Lipase (08/24/2019 7:55 PM CDT) Pathologist [facility] [place] Lipase 32 13 - 60 U/L [facility] 08/24/2019 7:55 PM CDT 08/24/2019 7:58 PM CDT Narrative Resulting Agency Comment ER Scott ADORNO LAB BLOOD ORDERABLES Final Result Performing Organization Address [facility] Co de Phone Number [address] [phone] * (ABNORMAL) Comprehensive metabolic panel (08/24/2019 7:55 PM CDT) Sodium 136 135 - 145 mmol/L [facility] Potassium 3.7 3.3 - 5.1 mmol/L [facility] Chloride 103 96 - 108 mmol/L [facility] Carbon Dioxide 21(L) 22 - 32 mmol/L [facility] Anion Gap 12 7 - 16 [facility] Glucose 103(H) 70 - 100 mg/dL [facility] BUN 11 8 - 25 mg/dL [facility] Creatinine 0.6 0.5 - 1.1 mg/dL [facility] Comment: NOTE: Estimated GFR (Cockroft-Gault) will NOT be calculated unless patient Height and Weight were entered. Also, Kidney Disease Stage (GFR) and Estimated GFR (Cockroft-Gault) will NOT be calculated if Creatinine result is <0.2. Kidney Disease Stage >90 mL/MIN [facility] Comment: NOTE; ??The GFR is an [...] failure or on dialysis Est GFR (Cockcroft-G) 139 ml/MIN [facility] Comment: Estimated GFR(Cockroft-Gault)is used to calculate patient medication dosage Calcium 9.5 8.6 - 10.3 mg/dL [facility] Total Protein 7.9 6.4 - 8.3 g/dL [facility] Albumin 4.2 3.5 - 5.0 g/dL [facility] Globulin 3.7(H) 2.3 - 3.5 gm/dL [facility] Albumin/Globulin Ratio 1.1 1.1 - 1.8 [facility] Total Bilirubin 0.3 0.0 - 1.2 mg/dL [facility] AST 15 0 - 32 U/L [facility] ALT 10 0 - 33 U/L [facility] Alkaline Phosphatase 57 35 - 104 U/L [facility] 08/24/2019 7:55 PM CDT 08/24/2019 7:58 PM CDT Narrative Resulting Agency Comment ER us Scott ADORNO LAB BLOOD ORDERABLES Final Result [facility] [address] [place] [address], [facility] [phone] * (ABNORMAL) CBC with auto differential (08/24/2019 7:55 PM CDT) WBC 7.5 3.8 - 9.9 X10 3/ul [facility] RBC 4.74 3.90 - 5.20 x10 6/ul [facility] Hemoglobin 13.0 11.9 - 15.5 g/dL [facility] Hct 40.4 35.6 - 45.5 % [facility] MCV 85.2 81.3 - 96.4 fl [facility] MCH 27.4 27.1 - 33.3 pg [facility] MCHC 32.2(L) 32.3 - 35.7 g/dl [facility] RDW 13.5 11.1 - 14.9 % [facility] Plt Count 323 150 - 400 x10 3/ul [facility] MPV 9.6 9.1 - 12.3 fl [facility] Neut % 59.2 % [facility] Immature Gran % 0.3 % [facility] Lymph % 27.2 % [facility] Wilkes % 9.4 % [facility] Eos % 3.1 % [facility] AUTO BASO % 0.8 % [facility] NEUTROPHIL ABS # 4.5 1.7 - 6.5 x10 3/ul [facility] Immature Gran # 0.0 0.0 - 0.1 x10 3/ul [facility] Absolute Lymphs (auto) 2.1 0.8 - 3.3 x10 3/ul [facility] Absolute Monos (auto) 0.7 0.2 - 0.8 x10 3/ul [facility] Absolute Eos (auto) 0.2 0.0 - 0.5 x10 3/ul [facility] BASOPHIL ABS # 0.1 0.0 - 0.1 x10 3/ul [facility] Nucleat RBC Rel Count 0.0 #/100WBC [facility] NRBC abs 0.00 0.00 - 0.01 x10 3/ul [facility] Absolute Neutrophils 4,500 200 - 8,000 /ul [facility] 08/24/2019 7:55 PM CDT 08/24/2019 7:58 PM CDT Narrative Resulting Agency Comment ER Scott ADORNO LAB BLOOD ORDERABLES Final Result [facility] [address] [phone] * (ABNORMAL) URINALYSIS, COMPLETE W/REFLEX TO CULTURE (08/24/2019 7:47 PM CDT) Ur Collection Type CLEAN CATCH [facility] Ur Culture Indicated? C S NOT INDICATED [facility] Urine Color HALEY YELLOW [facility] Urine Clarity Slightly-Genie udy CLEAR [facility] Urine Glucose (UA) NORMAL NORMAL mg/dL [facility] Urine Bilirubin NEGATIVE NEGATIVE mg/dl [facility] Urine Ketones 5(A) NEGATIVE mg/dL [facility] Ur Specific Bath 1.035(H) 1.005 - 1.025 [facility] Urine Blood NEGATIVE NEGATIVE mg/dl [facility] Urine pH 5.0 5.0 - 8.0 [facility] Urine Protein 30(A) NEGATIVE mg/dL [facility] Urine Urobilinogen 2(A) NORMAL mg/dL [facility] Urine Nitrite NEGATIVE NEGATIVE [facility] Ur Leukocyte Esterase 25(A) NEGATIVE Shaylee/ul [facility] Ur Microscopic Review Indicated or Ordered [facility] Urine RBC 5 0 - 2 /HPF [facility] Urine WBC 5 0 - 2 /HPF [facility] Urine Mucus Many /LPF [facility] Ur Squamous Epith Cells Mod /HPF [facility] 08/24/2019 7:47 PM CDT 08/24/2019 8:15 PM CDT Narrative [facility] - 08/24/2019 8:26 PM CDT Indication(s) for ordering ?? nt Clean catch Resulting Agency Comment ER Scott ADORNO LAB URINE ORDERABLES Final Result Performing Organization Address City/[facility]/ZIP Co [place] [address], [facility] [phone] * Influenza A/B PCR (08/24/2019 7:43 PM CDT) Influenza A RNA NEGATIVE NEGATIVE [facility] Influenza B RNA NEGATIVE NEGATIVE [facility] 08/24/2019 7:43 PM CDT 08/24/2019 7:47 PM CDT Narrative [facility] - 08/24/2019 8:20 PM CDT Collected By rsw Resulting Agency Comment ER Scott ADORNO LAB MICROBIOLOGY - GENERAL ORDERABLES [place] [address], [facility] [phone] documented in this encounter Visit Diagnoses Not on filedocumented in this encounter Care Teams Deck Hand Relationship Specialty Start Date End Date Magy Medina NP PCP - General 05/10/19 documented as of this encounter
--- OUTSIDE RECORDS SUMMARY | 2024-06-05 20:40 | XMS_ITS | Encounter Summary ---
Author Organization [facility] Healthcare Address [address] [place] [address] Care Team Providers Care Surveyor Hydrographic Name Role Phone Unavailable Primary Care Provider Unavailabl e Encounter Details Date Type Department Care Team (Late st Contact Info) Description 03/20/2018 12:08 PM CDT - 03/20/2018 2:36 PM CDT Hospital Encounter [facility] [place] Headache; Essential (primary) hypertension; Uncomplicated asthma Social History Tobacco Use Types Packs/Day Years Used Date Smoking Tobacco: Never Assessed Comments Unknown Sex and Gender Information Value Date Recorded Sex Assigned at Not on file Legal Sex Female 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 Gender Identity Not on file Sexual Orientation Not on file documented as of this encounter Last Filed Vital Signs Vital Sign Reading Time Taken Comments Blood Pressure 105/55 03/20/2018 12:12 PM CDT Pulse 88 03/20/2018 12:12 PM CDT Temperature 36.7 ??C (98 ??F) 03/20/2018 12:12 PM CDT Respiratory Rate - - Oxygen Saturation 100% 03/20/2018 12:12 PM CDT Inhaled Oxygen Concentration - - Weight 83.8 kg (184 lb 12 oz) 03/20/2018 12:12 P M CDT Height 157.5 cm (5' 2 ) 03/20/2018 12:12 PM CDT Body Mass Index 33.79 03/20/2018 12:12 PM CDT documented in this encounter Plan of Treatment Not on file documented as of this encounter Procedures Procedure Name Priority Date/Time Associated Diagnosis Comments TROPONIN I Routine 03/20/2018 12:52 PM CDT COMPREHENSIVE METABOLIC PANEL Routine 03/20/2018 12:52 PM CDT CBC WITH AUTO DIFFERENTIAL Routine 03/20/2018 12:33 PM CDT XR CHEST PA LATERAL 2 VIEWS Routine 03/20/2018 12:21 PM CDT documented in this encounter Results * Troponin I (03/20/2018 12:52 PM CDT) Troponin I < 0.300 0.000 - 0.300 ng/mL Comment: Reference using CANDY Chemiluminescence ? Negative: Repeat in 4-6 hours as indicated. 03/20/2018 12:5 2 PM CDT 03/20/2018 12:58 PM CDT us Historical Provider LAB BLOOD ORDERABLES Roberta adorno Result [facility] HISTORICAL RESULTS * (ABNORMAL) Comprehensive metabolic panel (03/20/2018 12:52 PM CDT) Pathologist [facility] Sodium 140 135 - 145 mmol/L Potassium 4.2 3.3 - 5.1 mmol/L Comment: THIS IS A REDRAW. ORIGINAL SPECIMEN WAS ALSO HEMOLYZED HEMOLYZED: Hemolysis interferes with the above test. Chloride 102 96 - 108 mmol/L Carbon Dioxide 27 22 - 32 mmol/L Anion Gap 11 7 - 16 Glucose 115(H) 70 - 100 mg/dL BUN 7 6 - 20 mg/dL Creatinine 0.6 0.5 - 1.1 mg/dL Comment: NOTE: Estimated [...] or on dialysis @ Est GFR (Cockcroft-G) 143 ml/MIN Comment: Estimated GFR(Cockroft-Gault)is used to calculate patient medication dosage Calcium 9.4 8.6 - 10.0 mg/dL Total Protein 7.9 6.4 - 8.3 g/dL Albumin 4.4 3.5 - 5.2 g/dL Globulin 3.5 2.3 - 3.5 gm/dL Albumin/Globulin Ratio 1.3 1.1 - 1.8 Total Bilirubin < 0.2 0.0 - 1.2 mg/dL AST 32 0 - 32 U/L Comment: THIS IS A REDRAW. ?? ORIGINAL SPECIMEN WAS ALSO HEMOLYZED. ?? SPECIMEN IS MODERATELY HEMOLYZED: ?? Hemolysis interferes with the above test. ALT 15 0 - 33 U/L Comment: THIS IS A REDRAW. ?? ORIGINAL SPECIMEN WAS ALSO HEMOLYZED. ?? SPECIMEN IS MODERATELY HEMOLYZED: ?? Hemolysis interferes with the above test. Alkaline Phosphatase 63 35 - 104 U/L 03/20/2018 12:5 2 PM CDT 03/20/2018 12:58 PM CDT us Historical Provider LAB BLOOD ORDERABLES Roberta l Result [facility] HISTORICAL RESULTS * CBC with auto differential (03/20/2018 12:33 PM CDT) WBC 6.1 3.8 - 9.9 X10 3/ul RBC 5.13 3.90 - 5.20 x10 6/ul Hemoglobin 14.5 11.9 - 15.5 g/dL Hct 44.7 35.6 - 45.5 % MCV 87.1 81.3 - 96.4 fl MCH 28.3 27.1 - 33.3 pg MCHC 32.4 32.3 - 35.7 g/dl RDW 12.9 11.1 - 14.9 % Plt Count 315 150 - 400 x10 3/ul MPV 10.3 9.1 - 12.3 fl Neut % 51.0 % Immature Gran % 0.2 % 8 12:38 PM T [facility] HISTORICAL RESULTS Lymph % 37.0 % [place] % 7.1 % Eos % 3.9 % Baso % 0.8 % Absolute Neuts (auto) 3.1 1.7 - 6.5 x10 3/ul Immature Gran # 0.0 0.0 - 0.1 x10 3/ul Absolute Lymphs (auto) 2.3 0.8 - 3.3 x10 3/ul Absolute Monos (auto) 0.4 0.2 - 0.8 x10 3/ul Absolute Eos (auto) 0.2 0.0 - 0.5 x10 3/ul Absolute Basos (auto) 0.1 0.0 - 0.1 x10 3/ul Nucleat RBC Rel Count 0.0 #/100WBC Absolute Nucleated RBC 0.00 0.00 - 0.01 x10 3/ul Absolute Neutrophils 3100 200 - 8000 /ul 03/20/2018 12:3 3 PM CDT 03/20/2018 12:36 PM CDT us Vanesa Guaman NP LAB BLOOD ORDERABLES Final Resul t [facility] HISTORICAL RESULTS * XR Chest Pa Lateral 2 Views (03/20/2018 12:21 PM CDT) Anatomical Region Laterality Modality Body, Chest N/A Radiographic Ligia ging 03/20/2018 12:2 1 PM CDT Impressions 03/20/2018 1:12 PM CDT ?? 1.Scoliosis. ??No acute cardiopulmonary process is identified. THIS IS AN ELECTRONICALLY VERIFIED FINAL REPORT 03/20/2018 1:09 PM - Electronically signed by Fabián Suh D.O. : D: ??03/20/2018 1:09 PM T: ??03/20/2018 1:09 PM Report ID: [id number] Reading Location: ??[id number] [EOD] Narrative 03/20/2018 1:12 PM CDT EXAM DESCRIPTION: ??Chest 2 Views REASON FOR STUDY: ??Intermittent chest pain for 2 weeks. TECHNIQUE: ??Frontal and lateral radiographic views of the chest acquired. COMPARISON: ??Most recently 03/12/2018. FINDINGS: LUNGS/PLEURA: No consolidation, pleural effusion or evidence of a pneumothorax. HEART/MEDIASTINUM: Normal heart size. ??No pulmonary vascular congestion. HARDWARE/LINES/TUBES: None. BONES: S shaped thoracolumbar scoliosis. ??Upper thoracic levoscoliosis of 26 degrees and thoracolumbar dextroscoliosis of 36 degrees. OTHER: No other significant finding. Procedure Note ProviderBarry MD - 10/24/2020 EXAM DESCRIPTION: Chest 2 Views REASON FOR STUDY: Intermittent chest pain for 2 weeks. TECHNIQUE: Frontal and lateral radiographic views of the chestacquired. COMPARISON: Most recently 03/12/2018. FINDINGS: LUNGS/PLEURA: No consolidation, pleural effusion or evidence of apneumothorax. HEART/MEDIASTINUM: Normal heart size. No pulmonary vascular congestion. HARDWARE/LINES/TUBES: None. BONES: S shaped thoracolumbar scoliosis. Upper thoracic levoscoliosis of26 degrees and thoracolumbar dextroscoliosis of 36 degrees. OTHER: No other significant finding. IMPRESSION: 1.Scoliosis. No acute cardiopulmonary process is identified. THIS IS AN ELECTRONICALLY VERIFIED FINAL REPORT 03/20/2018 1:09 PM - Electronically signed by Fabián Suh D.O. : Report ID: [id number] Reading Location: [id number] [EOD] Vanesa Guaman NP IMG XR PROCEDURES Final Result documented in this encounter Visit Diagnoses Diagnosis Headache Essential (primary) hypertension Unspecified essential hypertension Uncomplicated asthma documented in this encounter
--- OUTSIDE RECORDS SUMMARY | 2024-06-05 20:40 | XMS_ITS | Encounter Summary ---
Author Organization [facility] Address [address] [place] [address] Care Team Providers Care Spreader Operator Automatic Name Role Phone Magy Medina NP Primary Care Provider [phone] Reason for Referral * Diagnostic Imaging (Routine) - Closed Specialty Diagnoses / Procedures Referred By Contac t Referred To Contact Diagnoses Scoliosis (and kyphoscoliosis), idiopathic Procedures XR Scoliosis 2 or 3 Views [facility] [address] [place] [address] Phone: tel: fax: [address] [address] Referral ID Status Reason Start Date Expiration Date Visits Re quested Visits Authorized [id number] Closed 11/05/2020 12/05/2021 1 1 Reason for Visit * Diagnostic Imaging (Routine) - Closed Specialty Diagnoses / Procedures Referred By Contac t Referred To Contact Diagnoses Scoliosis (and kyphoscoliosis), idiopathic Procedures XR Scoliosis 2 or 3 Views Supa Peña MD [facility] [address] [address] Phone: tel: fax: [facility] [address] [place] [address] Referral ID Status Reason Start Date Expiration Date Visits Re quested Visits Authorized [id number] Closed 11/05/2020 12/05/2021 1 1 Encounter Details Date Type Department Care Team (Latest Contact Info) Description 04/06/2021 9:39 AM CDT - 04/06/2021 11:59 PM CDT Hospital Encounter [facility] [address] [place] [address] Supa Peña MD [facility] [address] [address] Idiopathic scoliosis and kyphoscoliosis Discharge Disposition: Discharge to home or self care Social History Tobacco Use Types Packs/Day Years Used Date Smoking Tobacco: Never Smokeless Tobacco: Never Comments Unknown Sex and Gender Information Value Date Recorded Sex Assigned at Not on file 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 [employer]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 Gender Identity Not on file Sexual Orientation Not on file documented as of this encounter Medications at Time of Discharge albuterol (PROAIR DIGIHALER) 90 mcg/actuation inhaler Inhale 2 Inhalation 2 (two) times a day as needed 06/11/2018 cetirizine (ZyrTEC) 10 mg tablet Take 10 mg by mouth daily 09/25/2020 meloxicam (MOBIC) 15 mg tablet Take 1 tablet (15 mg total) by mouth daily 30 tablet 1 04/06/2021 documented as of this encounter Discharge Disposition Disposition Code Departure Means Destination Discharge to home or self care documented in this encounter Plan of Treatment Not on file documented as of this encounter Procedures Procedure Name Priority Date/Time Associated Diagnosis Comments XR SCOLIOSIS AP LAT Schedule Routine, Read Routine (OP Routine) 04/06/2021 9:54 AM CDT Idiopathic scoliosis and kyphoscoliosis documented in this encounter Results * XR Scoliosis 2 [...] documented in this encounter Visit Diagnoses Diagnosis Idiopathic scoliosis and kyphoscoliosis Scoliosis (and kyphoscoliosis), idiopathic documented in this encounter Care Teams Spreader Operator Automatic Relationship Specialty Start Date End Date Magy Medina NP PCP - General 05/10/19 documented as of this encounter
--- OUTSIDE RECORDS SUMMARY | 2024-06-05 20:40 | XMS_ITS | Encounter Summary ---
Author Organization [facility] Healthcare Address [address] [place] [address] Care Team Providers Care Spanish Interpreter Name Role Phone Unavailable Primary Care Provider Unavailabl e Encounter Details Date Type Department Care Team (Latest Contact Info) Description 03/17/2017 3:25 PM CDT - 03/17/2017 9:31 PM CDT Hospital Encounter [facility] [place] Other specified diseases and conditions complicating , childbirth and the puerperium; Left lower quadrant pain; Less than 8 weeks gestation of Social History Tobacco Use Types Packs/Day Years Used Date Smoking Tobacco: Never Assessed Comments Unknown Sex and Gender Information Value Date Recorded Sex Assigned at Not on file Legal Sex Female 6:43 PM 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 Gender Identity Not on file Sexual Orientation Not on file documented as of this encounter Last Filed Vital Signs Vital Sign Reading Time Taken Comments Blood Pressure 131/81 03/17/2017 3:37 PM CDT Pulse 88 03/17/2017 3:37 PM CDT Temperature 36.6 ??C (97.9 ??F) 03/17/2017 3:37 PM CD T Respiratory Rate - - Oxygen Saturation 98% 03/17/2017 3:37 PM CDT Inhaled Oxygen Concentration - - Weight 78.5 kg (173 lb) 03/17/2017 3:37 PM CDT Height 157.5 cm (5' 2 ) 03/17/2017 3:37 PM CDT Body Mass Index 31.64 03/17/2017 3:37 PM CDT documented in this encounter Plan of Treatment Not on file documented as of this encounter Procedures Procedure Name Priority Date/Time Associated Diagnosis Comments URINALYSIS, MACRO AND MICRO Routine 03/17/2017 4:50 PM CDT CBC WITH AUTO DIFFERENTIAL Routine 03/17/2017 4:49 PM CDT HCG, BLOOD, QUANTITATIVE Routine 03/17/2017 4:49 PM CDT LIPASE Routine 03/17/2017 4:49 PM CDT COMPREHENSIVE METABOLIC PANEL Routine 03/17/2017 4:49 PM CDT US OB TRANSVAGINAL Routine 03/17/2017 12 :00 AM CDT documented in this encounter Results * (ABNORMAL) Urinalysis, macro and micro (03/17/2017 4:50 PM CDT) Ur Collection Type CLEAN CATCH Urine Color HALEY YELLOW Urine Clarity CLOUDY CLEAR Urine Glucose (UA) NORMAL NORMAL mg/dL Urine Bilirubin NEGATIVE NEGATIVE mg/dl Urine Ketones NEGATIVE NEGATIVE mg/dL Ur Specific [place]el 1.032(H) 1.005 - 1.025 Urine Blood NEGATIVE NEGATIVE mg/dl Urine pH 5.0 5.0 - 8.0 Urine Protein 30(H) NEGATIVE mg/dL Urine Urobilinogen NORMAL NORMAL mg/dL 03/17/2017 5:03 PM T [facility] HISTORICAL RESULTS Urine Nitrite NEGATIVE NEGATIVE 03/17/2017 5:03 PM T [facility]AM[facility] HISTORICAL RESULTS Ur Leukocyte Esterase 500(H) NEGATIVE Shaylee/ul 03/17/2017 5:03 PM T [facility]AM[facility] HISTORICAL RESULTS Ur Microscopic Review Indicated or Ordered 03/17/2017 5:03 PM T [facility] HISTORICAL RESULTS Urine RBC 5 0 - 2 /HPF 03/17/2017 5:03 PM T [facility]AM[facility] HISTORICAL RESULTS Urine Bacteria Rare /HPF 03/17/2017 5:03 PM T [facility]AM[facility] HISTORICAL RESULTS Urine Mucus Marked /LPF 03/17/2017 5:03 PM T [facility]AM[facility] HISTORICAL RESULTS Ur Squamous Epith Cells Rare /HPF 03/17/2017 5:03 PM T [facility] HISTORICAL RESULTS 03/17/2017 4:50 PM CDT 03/17/2017 4:53 PM CDT Narrative [facility] HISTORICAL RESULTS - 03/17/2017 5:03 PM CDT [facility] [place] [place] LAB URINE ORDERABLES Final R esult [facility] HISTORICAL RESULTS * Lipase (03/17/2017 4:49 PM CDT) Lipase 43 13 - 60 U/L 03/17/2017 5:19 PM T [facility] HISTORICAL RESULTS 03/17/2017 4:49 PM CDT 03/17/2017 4:52 PM CDT [facility] [place] Morris LAB BLOOD ORDERABLES Final R esult [facility] HISTORICAL RESULTS * (ABNORMAL) Comprehensive metabolic panel (03/17/2017 4:49 PM CDT) Pathologist [facility] Sodium 136 135 - 145 mmol/L 03/17/2017 5:19 PM CDT [facility] HISTORICAL RESULTS Potassium 3.7 3.3 - 5.1 mmol/L Chloride 99 96 - 108 mmol/L Carbon Dioxide 23 22 - 32 mmol/L Anion Gap 14 7 - 16 Glucose 108(H) 70 - 100 mg/dL BUN 12 6 - 20 mg/dL Creatinine 0.6 0.5 [...] or on dialysis @ Est GFR (Cockcroft-G) 139 ml/MIN Comment: Estimated GFR(Cockroft-Gault)is used to calculate patient medication dosage Calcium 9.8 8.6 - 10.0 mg/dL 03/17/2017 5:19 PM T [facility] HISTORICAL RESULTS Total Protein 7.6 6.4 - 8.3 g/dL 03/17/2017 5:19 PM T [facility] NAM[facility] HISTORICAL RESULTS Albumin 4.4 3.5 - 5.2 g/dL 03/17/2017 5:19 PM T [facility] NAM[facility] HISTORICAL RESULTS Globulin 3.2 2.3 - 3.5 gm/dL Albumin/Globulin Ratio 1.4 1.1 - 1.8 03/17/2017 5:19 PM T [facility]AM[facility] HISTORICAL RESULTS Total Bilirubin < 0.2 0.0 - 1.2 mg/dL AST 11 0 - 32 U/L ALT 10 0 - 33 U/L Alkaline Phosphatase 50 35 - 104 U/L 03/17/2017 4:49 PM CDT 03/17/2017 4:52 PM CDT Tima Palmer LAB BLOOD ORDERABLES Final R esult [facility] HISTORICAL RESULTS * CBC with auto differential (03/17/2017 4:49 PM CDT) Pathologist [facility] WBC 8.8 4.6 - 10.2 x10 3/ul 03/17/2017 4:55 PM T [facility] HISTORICAL RESULTS RBC 4.47 3.76 - 4.80 x10 6/ul 03/17/2017 4:55 PM T [facility] HISTORICAL RESULTS Hemoglobin 12.7 11.0 - 15.0 g/dl 03/17/2017 4:55 PM CDT [facility] HISTORICAL RESULTS Hct 37.4 33.0 - 43.0 % 03/17/2017 4:55 PM CDT [facility] HISTORICAL RESULTS MCV 83.7 80.0 - 97.0 fl 03/17/2017 4:55 PM CDT [facility] HISTORICAL RESULTS MCH 28.4 27.0 - 31.2 pg 03/17/2017 4:55 PM CDT [facility] HISTORICAL RESULTS MCHC 34.0 31.8 - 35.4 g/dl 03/17/2017 4:55 PM CDT [facility] HISTORICAL RESULTS RDW 13.0 11.6 - 14.8 % 03/17/2017 4:55 PM CDT [facility] HISTORICAL RESULTS Plt Count 285 124 - 400 x10 3/ul 03/17/2017 4:55 PM CDT [facility] HISTORICAL RESULTS MPV 9.6 7.4 - 10.4 fl 03/17/2017 4:55 PM CDT [facility] HISTORICAL RESULTS Neut % 59.1 37.0 - 85.0 % 03/17/2017 4:55 PM CDT [facility] HISTORICAL RESULTS Immature Gran % 0.2 0.0 - 3.0 % 03/17/2017 4:55 PM CDT [facility]AM[facility] HISTORICAL RESULTS Lymph % 28.4 5.0 - 45.0 % 03/17/2017 4:55 PM CDT [facility]AM[facility] HISTORICAL RESULTS Gila % 8.1 3.0 - 15.0 % 03/17/2017 4:55 PM CDT [facility]AM[facility] HISTORICAL RESULTS Eos % 3.4 0.0 - 7.0 % 03/17/2017 4:55 PM CDT [facility] HISTORICAL RESULTS Baso % 0.8 0.0 - 2.0 % 03/17/2017 4:55 PM CDT [facility] HISTORICAL RESULTS Absolute Neuts (auto) 5.2 1.7 - 8.7 x10 3/ul 03/17/2017 4:55 PM CDT [facility] HISTORICAL RESULTS Immature Gran # 0.0 0.0 - 0.3 x10 3/ul 03/17/2017 4:55 PM CDT [facility] HISTORICAL RESULTS Absolute Lymphs (auto) 2.5 0.2 - 4.6 x10 3/ul 03/17/2017 4:55 PM CDT [facility] HISTORICAL RESULTS Absolute Monos (auto) 0.7 0.1 - 1.5 x10 3/ul 03/17/2017 4:55 PM CDT [facility] HISTORICAL RESULTS Absolute Eos (auto) 0.3 0.0 - 0.7 x10 3/ul 03/17/2017 4:55 PM CDT [facility] HISTORICAL RESULTS Absolute Basos (auto) 0.1 0.0 - 0.2 x10 3/ul 03/17/2017 4:55 PM CDT [facility] HISTORICAL RESULTS Nucleat RBC Rel Count 0.0 0 - 3 #/100WBC 03/17/2017 4:55 PM CDT [facility] HISTORICAL RESULTS Absolute Nucleated RBC 0.00 x10 3/ul 03/17/2017 4:55 PM CDT [facility] HISTORICAL RESULTS Absolute Neutrophils 5200 200 - 8000 /ul 03/17/2017 4:55 PM CDT [facility] HISTORICAL RESULTS 03/17/2017 4:49 PM CDT 03/17/2017 4:52 PM CDT us Tima Palmer LAB BLOOD ORDERABLES Final R esult [facility] HISTORICAL RESULTS * (ABNORMAL) hCG, blood, quantitative (03/17/2017 4:49 PM CDT) Beta HCG, Quant 61946.0(H) 0.0 - 1.0 mIU/mL 03/17/2017 5:53 PM CDT [facility] HISTORICAL RESULTS Comment: Weeks of preg ?BHCG ? Weeks of preg ? BHCG ?3 ? 5.8-71.2 ?10 ? 46,509-186,977 ?4 ? 9.5-750 ? 12 ? 27,832-210,612 ?5 ? 217-7,138 ? 14 ? 13,950-62,530 ?6 ? 158-31,795 ?15 ? 12,039-70,971 ?7 ?3,697-163,563 ?16 ?9,040-56,451 ?8 ? 32,065-149,571 ?17 ?8,175-55,868 ?9 ? 63,803-151,410 ?18 ?8,099-58,176 Post-menopause: ??0-8.3 ?METHOD: ??[place] ECLIA Intended for the early detection of . ? 03/17/2017 4:49 PM CDT 03/17/2017 4:52 PM CDT Tima Palmer LAB BLOOD ORDERABLES Final R esult Performing Organization Address City/State/[facility] Co de Phone Number [facility] HISTORICAL RESULTS * US Ob Transvaginal (03/17/2017 12:00 AM CDT) Anatomical Region Laterality Modality Abdomen N/A Ultrasound 03/17/2017 Impressions 03/17/2017 6:31 PM CDT ?? 1. ??Single live intrauterine gestation with estimated age 7 weeks 1 day. 2. ??2.2 x 0.9 x 0.9 cm subchorionic bleed. THIS IS AN ELECTRONICALLY VERIFIED REPORT 03/17/2017 6:28 PM: ??Claude Jack, M.D. ?? Claude Santiago M.D. AR:brionna 06:28 PM 06:28 PM RYN [EOD] Narrative 03/17/2017 6:31 PM CDT EXAMINATION: ??OB ultrasound HISTORY: ??Pelvic pain x2 days COMPARISON: ??06/13/2014 TECHNIQUE: ??Fernandez-scale, color, and spectral wave sonography of the pelvis FINDINGS: ??Uterus measures 11 x 8 x 7 cm. ??Nabothian cysts in the cervix. ?? Single live intrauterine gestation with crown rump length 1 cm corresponding to a 4-czpf-0-day gestation. ??Heart rate 132 beats per minute. ??2.2 x 0.9 x 0.9 cm subchorionic bleed. Right and left ovaries measure 4.3 x 1.6 x 1.8 cm and 5.8 x 2.7 x 3.5 cm. ?? Symmetric ovarian blood flow. ??Trace free fluid. Procedure Note Provider, MD Barry - 10/24/2020 EXAMINATION: OB ultrasound HISTORY: Pelvic pain x2 days COMPARISON: 06/13/2014 TECHNIQUE: Fernandez-scale, color, and spectral wave sonography of thepelvis FINDINGS: Uterus measures 11 x 8 x 7 cm. Nabothian cysts in the cervix. Single live intrauterine gestation with crown rump length 1 cmcorresponding to a 1-ijoc-5-day gestation. Heart rate 132 beats per minute. 2.2 x 0.9x 0.9 cm subchorionic bleed. Right and left ovaries measure 4.3 x 1.6 x 1.8 cm and 5.8 x 2.7 x 3.5 cm. Symmetric ovarian blood flow. Trace free fluid. IMPRESSION: 1. Single live intrauterine gestation with estimated age 7 weeks 1day. 2. 2.2 x 0.9 x 0.9 cm subchorionic bleed. THIS IS AN ELECTRONICALLY VERIFIED REPORT 03/17/2017 6:28 PM: Claude Santiago M.D. Claude Santiago M.D. AR:brionna 06:28 PM 06:28 PM SANGITA [EOD] us Tima Palmer IMG OB US PROCEDURES Final R esult documented in this encounter Visit Diagnoses Diagnosis Other specified diseases and conditions complicating , childbirth and the puerperium Left lower quadrant pain Abdominal pain, left lower quadrant Less than 8 weeks gestation of documented in this encounter
--- OUTSIDE RECORDS SUMMARY | 2024-06-05 20:40 | XMS_ITS | Encounter Summary ---
Author Organization [facility] Address [address] [place] [address] Care Team Providers Care Chronic Disease Epidemiologist Name Role Phone Magy Medina NP Primary Care Provider [phone] Encounter Details Date Type Department Care Team (Late st Contact Info) Description 05/10/2019 4:08 PM WO[employer]INGLE [employer]FER - 05/10/2019 7:58 PM [facility] [facility] Hospital Encounter [address] [address] Unknown, Robb Marvin MD [address] [place] [id number] Discharge Disposition: Discharge to home or self care Social History Tobacco Use Types Packs/Day Years Used Date Smoking Tobacco: Never Assessed Comments Unknown Sex and Gender Information Value Date Recorded Sex Assigned at Not on file Legal Sex Female 6:43 PM WOOD SHINGLE [employer]OOFER Gender Identity Not on file Sexual Orientation Not on file documented as of this encounter Last Filed Vital Signs Vital Sign Reading Time Taken Comments Blood Pressure 125/79 05/10/2019 4:10 PM [employer]INGLE [employer]OOFER Pulse 89 05/10/2019 4:10 PM [employer]INGLE [employer]OOFER Temperature 37.1 ??C (98.7 ??F) 05/10/2019 4:10 PM CS T Respiratory Rate - - Oxygen Saturation 100% 05/10/2019 4:10 PM [employer]INGLE ROOFER Inhaled Oxygen Concentration - - Weight 82.8 kg (182 lb 8.7 oz) 05/10/2019 4:10 P M [employer]FER Height 157.5 cm (5' 2 ) 05/10/2019 4:10 PM WO[employer] SHINGLE ROOFER Body Mass Index 33.39 05/10/2019 4:10 PM WO[employer] SHINGLE ROOFER documented in this encounter Medications at Time [...] Diagnosis Comments CBC WITH AUTO DIFFERENTIAL Routine 05/10/2019 4:55 PM WO[employer] SHINGLE ROOFER LIPASE Routine 05/10/2019 4:55 PM [employer] SHINGLE ROOFER COMPREHENSIVE METABOLIC PANEL Routine 05/10/2019 4:55 PM [employer]INGLE ROOFER HCG, BLOOD, QUANTITATIVE Routine 05/10/2019 4:50 PM WO[employer] SHINGLE ROOFER URINALYSIS, COMPLETE Routine 05/10/2019 4:45 PM WO[employer] SHINGLE ROOFER US ABDOMEN COMPLETE W LIVER DOPPLER (C) 05/10/2019 12:00 AM WOOD SHINGLE ROOFER US OB TRANSVAGINAL 05/10/2019 12 :00 AM WO[employer] SHINGLE ROOFER documented in this encounter Results * Lipase (05/10/2019 4:55 PM WOOD SHINGLE ROOFER) Lipase 38 13 - 60 U/L [facility] 05/10/2019 4:55 PM WO[employer]ING[employer]OOFER 05/10/2019 4:57 PM WO[employer] SHINGLE ROOFER Narrative Resulting Agency Comment ER us Gillian ADORNO LAB BLOOD ORDERABLES Final Re sult [facility] [address] [place] [address], [facility] [phone] * (ABNORMAL) Comprehensive metabolic panel (05/10/2019 4:55 PM WOOD SHINGLE ROOFER) Pathologist [facility] Sodium 135 135 - 145 mmol/L [facility] Potassium 3.6 3.3 - 5.1 mmol/L [facility] Chloride 104 96 - 108 mmol/L [facility] Carbon Dioxide 20(L) 22 - 32 mmol/L [facility] Anion Gap 11 7 - [address] [facility] Glucose 112(H) 70 - 100 mg/dL [facility] BUN 13 8 - 25 mg/dL [facility] Creatinine 0.6 0.5 - 1.1 mg/dL [facility] Comment: NOTE: Estimated GFR (Cockroft-Gault) will NOT be calculated unless patient Height and Weight were entered. Also, Kidney Disease Stage (GFR) and Estimated GFR (Cockroft-Gault) will NOT be calculated if Creatinine result is <0.2. Kidney Disease Stage >90 mL/MIN [facility] Comment: NOTE; ??The GFR is an [...] failure or on dialysis Est GFR (Cockcroft-G) 140 ml/MIN [facility] Comment: Estimated GFR(Cockroft-Gault)is used to calculate patient medication dosage Calcium 8.9 8.6 - 10.3 mg/dL [facility] Total Protein 7.6 6.4 - 8.3 g/dL [facility] Albumin 4.3 3.5 - 5.0 g/dL [facility] Globulin 3.3 2.3 - 3.5 gm/dL [facility] Albumin/Globulin Ratio 1.3 1.1 - 1.[address] [facility] Total Bilirubin <0.2 0.0 - 1.2 mg/dL [facility] AST 14 0 - 32 U/L [facility] ALT 14 0 - 33 U/L [facility] Alkaline Phosphatase 58 35 - 104 U/L [facility] 05/10/2019 4:55 PM [employer]FER 05/10/2019 4:57 PM [employer]INGLE [employer]OOFER Narrative Resulting Agency Comment ER us Gillian ADORNO LAB BLOOD ORDERABLES Final Re sult [facility] [address] [place] [address], [facility] [phone] * CBC with auto differential (05/10/2019 4:55 PM WOOD SHINGLE ROOFER) WBC 9.3 3.8 - 9.9 X10 3/ul [facility] RBC 4.64 3.90 - 5.20 x10 6/ul [facility] Hemoglobin 13.0 11.9 - 15.5 g/dL [facility] Hct 39.5 35.6 - 45.5 % [facility] MCV 85.1 81.3 - 96.[address] [facility] MCH 28.0 27.1 - 33.[address] [facility] MCHC 32.9 32.3 - 35.7 g/dl [facility] RDW 13.6 11.1 - 14.9 % [facility] Plt Count 292 150 - 400 x10 3/ul [facility] MPV 9.8 9.1 - 12.[address] [facility] Neut % 62.4 % [facility] Immature Gran % 0.2 % [facility] Lymph % 25.9 % [facility] Branch % 7.8 % [facility] Eos % 3.2 % [facility] AUTO BASO % 0.5 % [facility] NEUTROPHIL ABS # 5.8 1.7 - 6.5 x10 3/ul [facility] Immature Gran # 0.0 0.0 - 0.1 x10 3/ul [facility] Absolute Lymphs (auto) 2.4 0.8 - 3.3 x10 3/ul [facility] Absolute Monos (auto) 0.7 0.2 - 0.8 x10 3/ul [facility] Absolute Eos (auto) 0.3 0.0 - 0.5 x10 3/ul [facility] BASOPHIL ABS # 0.1 0.0 - 0.1 x10 3/ul [facility] Nucleat RBC Rel Count 0.0 #/100WBC [facility] NRBC abs 0.00 0.00 - 0.01 x10 3/ul [facility] Absolute Neutrophils 5,800 200 - 8,000 /ul [facility] 05/10/2019 4:55 PM [employer]FER 05/10/2019 4:57 PM [employer]INGLE [employer]OOFER Narrative Resulting Agency Comment ER us Gillian ADORNO LAB BLOOD ORDERABLES Final Re sult [facility] [address] [place] [address], [facility] [phone] * (ABNORMAL) hCG, blood, quantitative (05/10/2019 4:50 PM WO[employer] SHINGLE ROOFER) Beta HCG, Quant 2,643.0(H ) 0.0 - 4.0 mIU/mL [facility] Comment: Female Reference Intervals(): ??Negative ? [...] interpretable as a tumor marker in females. 05/10/2019 4:50 PM [employer]LE [employer]FER 05/10/2019 5:08 PM WO[employer] SHINGLE ROOFER Narrative Resulting Agency Comment ER us Gillian ADORNO LAB BLOOD ORDERABLES Final Re sult [facility] [address] [place] [address], [facility] [phone] * (ABNORMAL) Urinalysis, Complete (05/10/2019 4:45 PM WOOD SHINGLE ROOFER) Ur Collection Type CLEAN CATCH [facility] Urine Color YELLOW YELLOW [facility] Urine Clarity Slightly-Genie udy CLEAR [facility] Urine Glucose (UA) NORMAL NORMAL mg/dL [facility] Urine Bilirubin NEGATIVE NEGATIVE mg/dl [facility] Urine Ketones NEGATIVE NEGATIVE mg/dL [facility] Ur Specific [place] 1.031(H) 1.005 - 1.[address] [facility] Urine Blood NEGATIVE NEGATIVE mg/dl [facility] Urine pH 5.0 5.0 - 8.[address] [facility] Urine Protein NEGATIVE NEGATIVE mg/dL [facility] Urine Urobilinogen NORMAL NORMAL mg/dL [facility] Urine Nitrite NEGATIVE NEGATIVE [facility] Ur Leukocyte Esterase NEGATIVE NEGATIVE Shaylee/ul [facility] Ur Microscopic Review Indicated or Ordered [facility] Urine RBC 1 0 - 2 /HPF [facility] Urine WBC 1 0 - 2 /HPF [facility] Urine Bacteria Rare /HPF [facility] Urine Mucus RARE /LPF [facility] Ur Squamous Epith Cells Rare /HPF [facility] 05/10/2019 4:45 PM [employer]FER 05/10/2019 4:55 PM [employer]INGLE [employer]OOFER Narrative [facility] - 05/10/2019 5:06 PM WO[employer]INGLE [employer]OOFER Clean catch Resulting Agency Comment ER us Gillian ADORNO LAB URINE ORDERABLES Final Re sult [facility] [address] [place] [address], [facility] [phone] * US Abdomen Complete W Liver Duplex (C) (05/10/2019 12:00 AM WOOD SHINGLE ROOFER) Anatomical Region Laterality Modality Abdomen Right Ultrasound 05/10/2019 7:23 PM WO[employer] SHINGLE ROOFER Narrative 05/10/2019 7:29 PM [employer]INGLE ROOFER Patient Name: JENNY WANG ?Ordering Dr: Gillian Munoz PA-C ?? D.O.B: 1990 ? Exam Date: 05/10/19 ?? 0000 ?? Age: 28 ?Sex: Female ? MR#: [id number] ?? Loc: ? RADIOLOGY REPORT ?? Order #[id number] ?? Ultrasound ? US Duplex Scan Limited ? Signed ?? EXAM DESCRIPTION: ??US OB Transvaginal; US Duplex Scan Limited ? REASON FOR STUDY: ??Abdominal pain for 4 days ? Beta-hCG: ??2643 ? TECHNIQUE: ??Transvaginal images acquired of the pelvis. ? COMPARISON: ??03/17/2017 ? FINDINGS: ? Clinical gestational age: ??6 weeks, 1 day ? Clinical estimated Due Date: 01/02/2020 ? The uterus is enlarged, measuring 11.0 x 6.9 x 6.2 cm. ??There is a fluid ?? collection within the endometrium which is irregular. ??This measures 2.9 x 2.6 ?? x 0.6 cm and may be a gestational sac. ??No pole or yolk sac are ?? identified. ? Right Ovary/Adnexa: The right ovary measures 4.3 x 3.5 x 2.3 cm. There is ?? documentation of color Doppler flow in the right ovary. ??Hypoechoic focus in ?? the right ovary measures 2.2 x 2.0 x 1.7 cm, possibly a corpus luteum cyst. ??A ?? 0.9 cm adjacent cysts may be a paraovarian cyst. ? Left Ovary/Adnexa: The left ovary measures 3.7 x 3.0 x 2.8 cm. There is ?? documentation of color Doppler flow in the left ovary. ??The left ovary appears ?? unremarkable. ??No adnexal mass. ? Free Fluid: None. ? Other Findings: None. ? IMPRESSION: ? 1. ??Fluid-filled structure in the endometrial cavity may be an irregular ?? gestational sac. ??This is too small for dating. ??No pole or yolk sac are ?? identified at this time. ??Follow-up with serial quantitative beta HCG levels ?? is recommended. ? 2. ??Probable corpus luteum cyst in the right ovary measuring 2.2 cm. ? THIS IS AN ELECTRONICALLY VERIFIED FINAL REPORT ?? 05/10/2019 7:29 PM - Electronically signed by Melanie Musa M.D. ?? Melanie Musa M.D. ? LL ?? D: ??05/10/2019 7:29 PM ?? T: ? Report ID: [id number] ?? Reading Location: ??[id number] ? REPORT ELECTRONICALLY SIGNED IN OTHER VENDOR SYSTEM ?? Resulting Agency Comment E Procedure Note Melanie Musa MD - 05/10/2019 Patient Name: JENNY WANG Vicky Dr: Gillian Munoz PA-C, D.O.B: 1990 Exam Date: 05/10/19 0000 Age: 28 Sex: Female MR#: [id number] Loc: RADIOLOGY REPORT Order #[id number] Ultrasound US Duplex Scan Limited Signed EXAM DESCRIPTION: US OB Transvaginal; US Duplex Scan Limited REASON FOR STUDY: Abdominal pain for 4 days Beta-hC TECHNIQUE: Transvaginal images acquired of the pelvis. COMPARISON: 03/17/2017 FINDINGS: Clinical gestational age: 6 weeks, 1 day Clinical estimated Due Date: 01/02/2020 The uterus is enlarged, measuring 11.0 x 6.9 x 6.2 cm. There is a fluid collection within the endometrium which is irregular. This measures 2.9x 2.6 x 0.6 cm and may be a gestational sac. No pole or yolk sac are identified. Right Ovary/Adnexa: The right ovary measures 4.3 x 3.5 x 2.3 cm. There is documentation of color Doppler flow in the right ovary. Hypoechoic focusin the right ovary measures 2.2 x 2.0 x 1.7 cm, possibly a corpus luteumcyst. A 0.9 cm adjacent cysts may be a paraovarian cyst. Left Ovary/Adnexa: The left ovary measures 3.7 x 3.0 x 2.8 cm. There is documentation of color Doppler flow in the left ovary. The left ovaryappears unremarkable. No adnexal mass. Free Fluid: None. Other Findings: None. IMPRESSION: 1. Fluid-filled structure in the endometrial cavity may be an irregular gestational sac. This is too small for dating. No pole or yolksac are identified at this time. Follow-up with serial quantitative beta HCGlevels is recommended. 2. Probable corpus luteum cyst in the right ovary measuring 2.2 cm. THIS IS AN ELECTRONICALLY VERIFIED FINAL REPORT 05/10/2019 7:29 PM - Electronically signed by Melanie Musa M.D. T: Report ID: [id number] Reading Location: [id number] REPORT ELECTRONICALLY SIGNED IN OTHER VENDOR SYSTEM us Gillian ADORNO IMG US PROCEDURES Final Resul t * US Ob Transvaginal (05/10/2019 12:00 AM WO[employer]INGLE ROOFER) Anatomical Region Laterality Modality Abdomen N/A Ultrasound 05/10/2019 7:23 PM [employer]INGLE [employer]OOFER Narrative 05/10/2019 7:29 PM [employer]INGLE [employer]OOFER Patient Name: MAY,JENNY S ?Ordering Dr: Gillian Munoz PA-C ?? D.O.B: 1990 ? Exam Date: //19 ?? 0000 ?? Age: 28 ?Sex: Female ? MR#: [id number] ?? Loc: ? RADIOLOGY REPORT ?? Order #[id number] ?? Ultrasound ? US OB Transvaginal ? Signed ?? EXAM DESCRIPTION: ??US OB Transvaginal; US Duplex Scan Limited ? REASON FOR STUDY: ??Abdominal pain for 4 days ? Beta-hCG: ??2643 ? TECHNIQUE: ??Transvaginal images acquired of the pelvis. ? COMPARISON: ??03/17/2017 ? FINDINGS: ? Clinical gestational age: ??6 weeks, 1 day ? Clinical estimated Due Date: 01/02/2020 ? The uterus is enlarged, measuring 11.0 x 6.9 x 6.2 cm. ??There is a fluid ?? collection within the endometrium which is irregular. ??This measures 2.9 x 2.6 ?? x 0.6 cm and may be a gestational sac. ??No pole or yolk sac are ?? identified. ? Right Ovary/Adnexa: The right ovary measures 4.3 x 3.5 x 2.3 cm. There is ?? documentation of color Doppler flow in the right ovary. ??Hypoechoic focus in ?? the right ovary measures 2.2 x 2.0 x 1.7 cm, possibly a corpus luteum cyst. ??A ?? 0.9 cm adjacent cysts may be a paraovarian cyst. ? Left Ovary/Adnexa: The left ovary measures 3.7 x 3.0 x 2.8 cm. There is ?? documentation of color Doppler flow in the left ovary. ??The left ovary appears ?? unremarkable. ??No adnexal mass. ? Free Fluid: None. ? Other Findings: None. ? IMPRESSION: ? 1. ??Fluid-filled structure in the endometrial cavity may be an irregular ?? gestational sac. ??This is too small for dating. ??No pole or yolk sac are ?? identified at this time. ??Follow-up with serial quantitative beta HCG levels ?? is recommended. ? 2. ??Probable corpus luteum cyst in the right ovary measuring 2.2 cm. ? THIS IS AN ELECTRONICALLY VERIFIED FINAL REPORT ?? 05/10/2019 7:29 PM - Electronically signed by Melanie Musa M.D. ?? Melanie Musa M.D. ? LL ?? D: ??05/10/2019 7:29 PM ?? T: ? Report ID: [id number] ?? Reading Location: ??[id number] ? REPORT ELECTRONICALLY SIGNED IN OTHER VENDOR SYSTEM ?? Resulting Agency Comment E Procedure Note Melanie Musa MD - 05/10/2019 Patient Name: JENNY WANG Dr: Gillian Munoz PA-CO.B: 1990 Exam Date: 05/10/19 0000 Age: 28 Sex: Female MR#: [id number] Loc: RADIOLOGY REPORT Order #[id number] Ultrasound US OB Transvaginal Signed EXAM DESCRIPTION: US OB Transvaginal; US Duplex Scan Limited REASON FOR STUDY: Abdominal pain for 4 days Beta-hC TECHNIQUE: Transvaginal images acquired of the pelvis. COMPARISON: 03/17/2017 FINDINGS: Clinical gestational age: 6 weeks, 1 day Clinical estimated Due Date: 01/02/2020 The uterus is enlarged, measuring 11.0 x 6.9 x 6.2 cm. There is a fluid collection within the endometrium which is irregular. This measures 2.9x 2.6 x 0.6 cm and may be a gestational sac. No pole or yolk sac are identified. Right Ovary/Adnexa: The right ovary measures 4.3 x 3.5 x 2.3 cm. There is documentation of color Doppler flow in the right ovary. Hypoechoic focusin the right ovary measures 2.2 x 2.0 x 1.7 cm, possibly a corpus luteumcyst. A 0.9 cm adjacent cysts may be a paraovarian cyst. Left Ovary/Adnexa: The left ovary measures 3.7 x 3.0 x 2.8 cm. There is documentation of color Doppler flow in the left ovary. The left ovaryappears unremarkable. No adnexal mass. Free Fluid: None. Other Findings: None. IMPRESSION: 1. Fluid-filled structure in the endometrial cavity may be an irregular gestational sac. This is too small for dating. No pole or yolksac are identified at this time. Follow-up with serial quantitative beta HCGlevels is recommended. 2. Probable corpus luteum cyst in the right ovary measuring 2.2 cm. THIS IS AN ELECTRONICALLY VERIFIED FINAL REPORT 05/10/2019 7:29 PM - Electronically signed by Melanie Musa M.D. T: Report ID: [id number] Reading Location: [id number] REPORT ELECTRONICALLY SIGNED IN OTHER VENDOR SYSTEM us Gillian ADORNO IMG OB US PROCEDURES Final Re sult documented in this encounter Visit Diagnoses Not on filedocumented in this encounter Care Teams Chronic Disease Epidemiologist Relationship Specialty Start Date End Date Magy Medina NP PCP - General 05/10/19 documented as of this encounter
--- OUTSIDE RECORDS SUMMARY | 2024-06-05 20:40 | XMS_ITS | Encounter Summary ---
Author Organization [facility] Address [address] [place] [address] Care Team Providers Care Radio Dispatcher Name Role Phone Magy Medina NP Primary Care Provider [phone] Reason for Visit * Reason Comments Lower Extremity Issue Encounter Details Date Type Department Care Team (Late st Contact Info) Description 12/17/2020 11:01 PM CDT - 12/18/2020 3:01 AM CDT Emergency [address] [address] Sprain of anterior talofibular ligament of right ankle, initial encounter (Primary Dx) Discharge Disposition: Discharge to home or self care Social History Tobacco Use Types Packs/Day Years Used Date Smoking Tobacco: Never Assessed Comments Unknown Sex and Gender Information Value Date Recorded Sex Assigned at Not on file 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 Gender Identity Not on file Sexual Orientation Not on file documented as of this encounter Last Filed Vital Signs Vital Sign Reading Time Taken Comments Blood Pressure 142/84 12/17/2020 10:32 PM CDT Pulse 95 12/17/2020 10:32 PM CDT Temperature 36.8 ??C (98.3 ??F) 12/17/2020 10:32 PM C DT Respiratory Rate 20 12/17/2020 10:32 PM CDT Oxygen Saturation 97% 12/17/2020 10:32 PM CDT Inhaled Oxygen Concentration - - Weight 81.6 kg (180 lb) 12/17/2020 10:32 PM CDT Height 154.9 cm (5' 1 ) 12/17/2020 10:32 PM CDT Body Mass Index 34.01 12/17/2020 10:32 PM CDT documented in this encounter Discharge Instructions * Discharge Instructions* Scott Humphreys PA - 12/18/2020 2:48 AM CDT Follow RICE instructions: rest, apply ice often, use brace, and keep elevated. Use tylenol/ibuprofen as needed for pain. * Attachments The following attachments cannot be sent through Care Everywhere. * Ankle Sprain (AfterCare(R) Instructions(ER/ED)) (Cymraes) documented in this encounter Medications at Time of Discharge albuterol (PROAIR DIGIHALER) 90 mcg/actuation inhaler Inhale 2 Inhalation 2 (two) times a day as needed 06/11/2018 cetirizine (ZyrTEC) 10 mg tablet Take 10 mg by mouth daily 09/25/2020 documented as of this encounter Discharge Disposition Disposition Code Departure Means Destination Discharge to home or self care documented in this encounter ED Notes * Scott Humphreys PA - 12/18/2020 2:46 AM CDT HPI Chief Complaint Patient presents with ??? Lower Extremity Issue HPI 2:48 AM Jenny Johnson is a 30 y.o. 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 Pt reports someone stepped on her foot. She was given tylenol in triage and states the pain is better, but she is still having pain. No other areas of pain. No other complaints at this time. Patient History: No past medical history on file. No past surgical history on file. No family history on file. Social History Tobacco Use ??? Smoking status: Not on file Substance Use Topics ??? Alcohol use: Not on file ??? Drug use: Not on file No current facility-administered medications for this encounter. Current Outpatient Medications: ??? albuterol (PROAIR DIGIHALER) 90 mcg/actuation inhaler ??? cetirizine (ZyrTEC) 10 mg tablet Review of Systems Review of Systems All systems reviewed and are negative or non contributory for this patients presentation today other than as stated in the HPI . Physical Exam ED Triage Vitals [12/17/20 2232] Temp Pulse Resp BP SpO2 36.8 ??C (98.3 ??F) 95 20 142/84 97 % Temp src Heart Rate Source Patient Position BP Location FiO2 (%) Oral Monitor -- Left arm -- Physical Exam Nursing notes and vital signs reviewed GENERAL: Non-toxic appearing, NAD, appears stated age HEENT: NCAT, EOMI, MMM LUNGS: Breath sounds are clear to auscultation bilaterally, no adventitious breath sounds, no distress CV: Regular rate and rhythm, no murmurs or gallops heard MSK: Limited ROM of R ankle, TTP at R lateral malleolus with mild swelling, no foot TTP, 2+ DP pulses bilaterally. NEURO: Speech is clear. Alert and oriented x4 PSYCH: Pleasant and cooperative Procedures [facility] Labs Reviewed - No data to display XR Ankle Right 3 or More Views Final Result XR Foot Right 3 or More Views Final Result BP 142/84 (BP Location: Left arm) Pulse 95 Temp 36.8 ??C (98.3 ??F) (Oral) Resp 20 Ht 154.9cm (5' 1 ) Wt 81.6 kg (180 lb) SpO2 97% BMI 34.01 kg/m?? [facility] 0246 D/w pt XR results and plan to d/c home with RICE therapy, f/u with ortho if symptoms worsen. Strict return to ER precautions given. Pt verbalizes understanding and agrees to plan. All questions addressed. This examination was transcribed using the Dindong voice recognition system without human bobbin marker. In an effort to expedite patient care, this report has not been adjusted for typographical, grammatical, and syntax by a trained medical staff manager. Clinical Impression: Sprain of anterior talofibular ligament of right ankle, initial encounter Scott Humphreys PA 12/18/20 1279 Cosigned by Any Mares MD at 12/18/2020 6:10 AM CDT * Laurence Sheffield, RN - 12/17/2020 10:48 PM CDT Pt reports around 2100 someone stepped on her foot. Pt states It feels like something torn and I can't take the pain. No deformities noted. documented in this encounter Plan of Treatment Not on file documented as of this encounter Procedures Procedure Name Priority Date/Time Associated Diagnosis Comments XR FOOT RIGHT 3 OR MORE VIEWS ED 12/17/2020 11:24 PM CDT XR ANKLE RIGHT 3 OR MORE VIEWS ED 12/17/2020 11:24 PM CDT documented in this encounter Results * XR Foot Right 3 or More Views (12/17/2020 11:24 PM CDT) Anatomical Region Laterality Modality Lower Extremities, Foot Right Computed Radiography 12/17/2020 11:3 6 PM CDT Narrative 12/17/2020 11:37 PM CDT EXAM DESCRIPTION: ?XR FOOT RIGHT 3 OR MORE VIEWS REASON FOR STUDY: ?? Right ankle and foot pain tonight, states someone stepped on her foot TECHNIQUE: ?? AP, lateral and oblique radiographic views acquired of the right foot. COMPARISON: ?? None available FINDINGS: BONES/JOINTS: ??No acute fracture, malalignment or osseous abnormalities. Joint spaces are maintained. SOFT TISSUES: ??Unremarkable. OTHER: ??No other significant finding. IMPRESSION: ?? No acute osseous abnormality. THIS IS AN ELECTRONICALLY VERIFIED FINAL REPORT 12/17/2020 11:37 PM - Electronically signed by Silvana Hernandez M.D. JS D: ??12/17/2020 11:37 PM T: Report ID: [id number] Reading Location: ??[id number] Procedure Note Silvana Hernandez MD - 12/17/2020 EXAM DESCRIPTION: XR FOOT RIGHT 3 OR MORE VIEWS REASON FOR STUDY: Right ankle and foot pain tonight, states someonestepped on her foot TECHNIQUE: AP, lateral and oblique radiographic views acquired of theright foot. COMPARISON: None available FINDINGS: BONES/JOINTS: No acute fracture, malalignment or osseous abnormalities.Joint spaces are maintained. SOFT TISSUES: Unremarkable. OTHER: No other significant finding. IMPRESSION: No acute osseous abnormality. THIS IS AN ELECTRONICALLY VERIFIED FINAL REPORT 12/17/2020 11:37 PM - Electronically signed by Silvana MOSLEY T: Report ID: [id number] Reading Location: [place] [address] Scott ADORNO IMG XR PROCEDURES Final Re sult * XR Ankle Right 3 or More Views (12/17/2020 11:24 PM CDT) Anatomical Region Laterality Modality Lower Extremities, Ankle Right Compute d Radiography 12/17/2020 11:3 2 PM CDT Narrative 12/17/2020 11:35 PM CDT EXAM DESCRIPTION: ?? XR ANKLE RIGHT 3 OR MORE VIEWS REASON FOR STUDY: ?? Right ankle and foot pain tonight, states someone stepped on her foot TECHNIQUE: ?? AP, lateral, and oblique radiographic views acquired of the right ankle. COMPARISON: ?? None available FINDINGS: BONES/JOINTS: ??No acute fracture, malalignment or osseous abnormalities. The talar dome and ankle mortise are maintained. ??There is no substantial degenerative joint disease. SOFT TISSUES: ??Unremarkable. OTHER: ??No other significant finding. IMPRESSION: ?? No acute osseous abnormality. THIS IS AN ELECTRONICALLY VERIFIED FINAL REPORT 12/17/2020 11:35 PM - Electronically signed by Silvana MOSLEY D: ??12/17/2020 11:35 PM T: Report ID: [id number] Reading Location: ??[id number] Procedure Note Silvana Hernandez MD - 12/17/2020 EXAM DESCRIPTION: XR ANKLE RIGHT 3 OR MORE VIEWS REASON FOR STUDY: Right ankle and foot pain tonight, states someonestepped on her foot TECHNIQUE: AP, lateral, and oblique radiographic views acquired of theright ankle. COMPARISON: None available FINDINGS: BONES/JOINTS: No acute fracture, malalignment or osseous abnormalities.The talar dome and ankle mortise are maintained. There is no substantial degenerative joint disease. SOFT TISSUES: Unremarkable. OTHER: No other significant finding. IMPRESSION: No acute osseous abnormality. THIS IS AN ELECTRONICALLY VERIFIED FINAL REPORT 12/17/2020 11:35 PM - Electronically signed by Silvana Hernandez M.D. JS T: Report ID: [id number] Reading Location: [place] [address] Scott ADORNO IMG XR PROCEDURES Final Re sult documented in this encounter Visit Diagnoses Diagnosis Sprain of anterior talofibular ligament of right ankle, initial encounter- Primary documented in this encounter Administered Medications Inactive Administered Medications - up to 3 most recent administrations Medication Order MAR Action Action Date Dose Rate Site acetaminophen (TYLENOL) tablet 975 mg 975 mg (rounded from 1,000 mg), oral, Once, On 12/17/20 at 2253, For 1 dose Given 12/17/2020 10:55 PM CDT 975 mg documented in this encounter Historical Medications * This list may reflect changes made after this encounter. cetirizine (ZyrTEC) 10 mg tablet Take 10 mg by mouth daily 09/25/2020 albuterol (PROAIR DIGIHALER) 90 mcg/actuation inhaler Inhale 2 Inhalation 2 (two) times a day as needed 06/11/2018 added in this encounter Active and Recently Administered Medications Times are shown in CDT. Scheduled Medication Order 12/16/2020 12/17/2020 12/18/2020 acetaminophen (TYLENOL) tablet 975 mg (COMPLETED) 975 mg (rounded from 1,000 mg), oral, Once, On 12/17/20 at 2253, For 1 dose 2255 (Given - Provider: Laurence Sheffield RN) documented in this encounter Care Teams Radio Dispatcher Relationship Specialty Start Date End Date Magy Medina NP PCP - General 05/10/19 documented as of this encounter
--- OUTSIDE RECORDS SUMMARY | 2024-06-05 20:40 | XMS_ITS | Encounter Summary ---
Author Organization [facility] Address [address] [place] [address] Care Team Providers Care Drying Machine Operator Package Yarns Name Role Phone Magy Medina NP Primary Care Provider [phone] Reason for Visit * Reason Comments New Patient * Consultation (Routine) - Closed Specialty Diagnoses / Procedures Referred By Daniel foreman Referred To Contact Orthopedic Surgery Diagnoses Dorsalgia, unspecified Magy Medina NP Phone: tel: fax: [facility] [address] [place] [address] 4th [address] [place] [address] Phone: tel: fax: Referral ID Status Reason Start Date Expiration Date V isits Requested Visits Authorized [id number] Closed Specialty Services Required 07/19/2020 08/18/2021 12 12 Encounter Details Date Type Department Care Team (Late st Contact Info) Description 04/06/2021 9:30 AM CDT Office Visit [facility] [address] [place] [address] 4th [address] [place] [address] Herminio Torrez MD [address] [facility] [address] [place] [address] Scoliosis of lumbar spine, unspecified scoliosis type (Primary Dx); Dorsalgia, unspecified Discharge Disposition: Discharge to home or self care Social History Tobacco Use Types Packs/Day Years Used Date Smoking Tobacco: Never Smokeless Tobacco: Never Comments Unknown Sex and Gender Information Value Date Recorded Sex Assigned at Not on file 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 Gender Identity Not on file Sexual Orientation Not on file documented as of this encounter Last Filed Vital Signs Vital Sign Reading Time Taken Comments Blood Pressure 132/77 04/06/2021 10:05 AM CDT Pulse 95 04/06/2021 10:05 AM CDT Temperature 36.9 ??C (98.5 ??F) 04/06/2021 10:05 AM C DT Respiratory Rate 18 04/06/2021 10:05 AM CDT Oxygen Saturation - - Inhaled Oxygen Concentration - - Weight 85 kg (187 lb 4.8 oz) 04/06/2021 10:05 AM CDT Height 154.9 cm (5' 1 ) 04/06/2021 10:05 AM CDT Body Mass Index 35.39 04/06/2021 10:05 AM CDT documented in this encounter Patient Instructions * Patient Instructions* Liset Horner RN - 04/06/2021 9:30 AM CDT Discharge instructions and plan of care explained to patient. Patient confirms education at time ofdischarge and all questions answered. Patient informed to call clinic with any future questions or concerns [phone]. If you are interested in receiving the COVID-19 vaccination through [facility], please visit our website at [email or web address]. If you do not have access to the Internet, please call the following number: [phone]. documented in this encounter Discharge Disposition Disposition Code Departure Means Destination Discharge to home or self care documented in this encounter Progress Notes * Porfirio Rios MD - 04/06/2021 9:30 AM CDT NEW PATIENT VISIT CHIEF COMPLAINT Back pain HISTORY OF PRESENT ILLNESS Jenny is a 30 y.o. female who presents for evaluation of back pain. she reports that she had the insidious onset of back pain approximately 6 years ago around the time her daughter was born. She states she was diagnosed with scoliosis as a child. At age to she underwent back surgery because of a ???open vein ???although is not entirely sure of the details of this. She was followed at [facility] for her scoliosis and surgery was recommended at that time but she never underwent this. No preceding trauma or injury. Her pain has been gradually getting worse over the past 2 years or so. She generally feels like she is off balance from her shoulders pelvis. She occasionally trips and falls. She denies any issues with hand weakness/dexterity or fine motor movements. Her pain is worse inthe low back but also radiates up to her bilateral shoulders. She states that she typically is ableto make it through to the afternoon in terms of day-to-day activities including take care for her daughter but by then she cannot do much more because of the pain. No radicular pain. So far she has tried multiple courses of physical therapy without significant improvement, she has seen pain management and has received multiple steroid injections which only provided a few minutes worth of relief. She so far she has been followed by her primary care doctor who has told her that her deformity has progressed. She has undergone multiple MRIs of her back however these are not available for review today and it is unclear exactly with they have shown in the past. She has tried Tylenol, muscle relaxers and NSAIDs without significant relief. The pain is aching in quality. she denies numbness or tingling, radiating pain, unexplained fevers or chills, bowel or bladder changes, night pain. She is a nonsmoker, drinks alcohol on a rare basis, denies illicit/injection drug use. 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 Currently not working as she is taking full-time care of her daughter. PAST MEDICAL HISTORY Asthma PAST SURGICAL HISTORY Prior back surgery at age 3 for ???open vein??? no other specifics available. MEDICATIONS Current Outpatient Medications Medication Sig Dispense Refill ??? albuterol (PROAIR DIGIHALER) 90 mcg/actuation inhaler Inhale 2 Inhalation 2 (two) times a day as needed ??? cetirizine (ZyrTEC) 10 mg tablet Take 10 mg by mouth daily No current facility-administered medications for this visit. ALLERGIES Allergies Allergen Reactions ??? Latex Rash SOCIAL HISTORY Social History Socioeconomic History ??? Marital status: Single Spouse name: Not on file ??? Number of children: Not on file ??? Years of education: Not on file ??? Highest education level: Not on file Occupational History ??? Not on file Tobacco Use ??? Smoking status: Never Smoker ??? Smokeless tobacco: Never Used Substance and Sexual Activity ??? Alcohol use: Not on file ??? Drug use: Not Currently ??? Sexual activity: Not on file Other Topics Concern ??? Not on file Social History Narrative ??? Not on file Social Determinants of Health Financial Resource Strain: ??? Difficulty of Paying Living Expenses: Not on file Food Insecurity: ??? Worried About Running Out of Food in the Last Year: Not on file ??? Ran Out of Food in the Last Year: Not on file Transportation Needs: ??? Lack of Transportation (Medical): Not on file ??? Lack of Transportation (Non-Medical): Not on file Physical Activity: ??? Days of Exercise per Week: Not on file ??? Minutes of Exercise per Session: Not on file Stress: ??? Feeling of Stress : Not on file Social Connections: ??? Frequency of Communication with Friends and Family: Not on file ??? Frequency of Social Gatherings with Friends and Family: Not on file ??? Attends Sabianism Services: Not on file ??? Active Member of Clubs or Organizations: Not on file ??? Attends Club or Organization Meetings: Not on file ??? Marital Status: Not on file Intimate Partner Violence: ??? Fear of Current or Ex-Partner: Not on file ??? Emotionally Abused: Not on file ??? Physically Abused: Not on file ??? Sexually Abused: Not on file FAMILY HISTORY No family history on file. REVIEW OF SYSTEMS Review of systems was documented by the patient and their family on the clinic intake form and reviewed with them at the time of the visit. It is significant for none except as per HPI. Remainder of the review of systems was negative and is included in the medical record. PHYSICAL EXAMINATION Height: 154.9 cm (5' 1 ) Weight: 85 kg (187 lb 4.8 oz) Jenny is well-appearing today in no acute distress. Her right shoulder is elevated and pelvis is level. She has a transverse scar from prior surgical incision across her low back just above her sacrum. Skin is intact without lesions, no axillary freckles or [id number] spots. Spine demonstrates good range of motion in all planes. On Isaac forward bend test there is a 10 degree right thoracic paraspinal prominance and no significant lumbar paraspinal prominence. Full 5 out of 5 strength in all major muscle groups of the bilateral lower extremities. Sensation is intact to light touch L3-S1. Symmetric deep tendon reflexes in the lower extremities. No clonus. Limbs are warm and well-perfused. She is able to walk with a steady gait and walk on her toes and heels however she is not able to perform tandem gait without assistance. Negative Romberg. REVIEW OF X-RAYS/STUDIES Standing PA and lateral of the entire spine were obtained today and personally interpreted. My independent interpretation is that they were significant for 47 degree right main thoracic curve, as well as 31 degree left proximal thoracic and 20 degree left lumbar curves. She has hypo kyphosis of thethoracic spine and overall negative sagittal balance, as well as cervical kyphosis. ASSESSMENT AND PLAN Jenny is a 30 y.o. female with low back pain in the setting of adult spinal deformity. We discussed in detail that at this point she has failed non operative conservative measures including PT, injections, and oral medication which tend to be the mainstay of initial treatment. Her evaluation today is limited as we do not have her full imaging and prior medical records available, however based on patient's report this issue has been present since childhood and so far has not been treated. She has had a recent MRI from this past October with unspecified findings. We discussed today that patient is interested in all options including surgery for spinal deformity correction, discussed that this would be a major procedure with some significant complication risk and a lengthy rehabilitation period. Patient is interested in learning more about this option as her pain is currently quite bothersome and she is afraid that it will only get worse. We will refer her to adult spinal deformity clinic for further evaluation. In the meantime we will have her see physical therapy to continue spine conditioning. A month for long prescription of meloxicam was also provided today. We will plan on havingthe patient follow up in adult spinal deformity Clinic return for follow-up with us in 3 months if she decides to continue to pursue non surgical intervention or has trouble getting in. All the patient's questions were answered and she agrees with the plan. FOLLOW UP 3 months as needed. Porfirio Rios MD documented in this encounter Plan of Treatment Not on file documented as of this encounter Visit Diagnoses Diagnosis Scoliosis of lumbar spine, unspecified scoliosis type- Primary Dorsalgia, unspecified documented in this encounter Orders Medications Ordered That Tamir ht Not Have Been Administered Count Last Ordered Date First Ordered Date meloxicam (MOBIC) tablet 15 mg 1 04/06/2021 Outpatient Referral Count Last Ordered Date Fir st Ordered Date AMB REFERRAL TO ORTHOPEDIC SURGERY 1 2020 documented in this encounter Care Teams Drying Machine Operator Package Yarns Relationship Specialty Start Date End Date Magy Medina NP PCP - General 05/10/19 documented as of this encounter
--- OUTSIDE RECORDS SUMMARY | 2024-06-05 20:40 | XMS_ITS | Encounter Summary ---
Author Organization [facility] Healthcare Address [address] [place] [address] Care Team Providers Care Cloud Architect Name Role Phone Unavailable Primary Care Provider Unavailabl e Encounter Details Date Type Department Care Team (Latest Contact Info) Description 03/29/2018 7:21 AM CDT - 03/29/2018 10:27 AM CDT Hospital Encounter [facility] Franc Bunch II, MD [address] [place] [address] Diarrhea; Essential (primary) hypertension; Uncomplicated asthma Social History Tobacco Use Types Packs/Day Years Used Date Smoking Tobacco: Never Assessed Comments Unknown Sex and Gender Information Value Date Recorded Sex Assigned at Not on file 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 Gender Identity Not on file Sexual Orientation Not on file documented as of this encounter Last Filed Vital Signs Vital Sign Reading Time Taken Comments Blood Pressure 134/82 03/29/2018 7:22 AM CDT Pulse 102 03/29/2018 7:22 AM CDT Temperature 37.1 ??C (98.7 ??F) 03/29/2018 7:22 AM CD T Respiratory Rate - - Oxygen Saturation 100% 03/29/2018 7:22 AM CDT Inhaled Oxygen Concentration - - Weight 84.2 kg (185 lb 10.1 oz) 03/29/2018 7:22 AM CDT Height 157.5 cm (5' 2 ) 03/29/2018 7:22 AM CDT Body Mass Index 33.95 03/29/2018 7:22 AM CDT documented in this encounter Plan of Treatment Not on file documented as of this encounter Procedures Procedure Name Priority Date/Time Associated Diagnosis Comments CBC WITH AUTO DIFFERENTIAL Routine 03/29/2018 8:08 AM CDT LIPASE Routine 03/29/2018 8:08 AM CDT COMPREHENSIVE METABOLIC PANEL Routine 03/29/2018 8:08 AM CDT URINALYSIS, MACRO AND MICRO Routine 03/29/2018 7:50 AM CDT documented in this encounter Results * (ABNORMAL) Comprehensive metabolic panel (03/29/2018 8:08 AM CDT) Sodium 136 135 - 145 mmol/L 03/29/2018 8:47 AM [facility] [employer] HISTORICAL RESULTS Potassium 3.5 3.3 - 5.1 mmol/L 03/29/2018 8:47 AM [facility] [employer] HISTORICAL RESULTS Chloride 103 96 - 108 mmol/L 03/29/2018 8:47 AM [facility] [employer] HISTORICAL RESULTS Carbon Dioxide 23 22 - 32 mmol/L 03/29/2018 8:47 AM [facility] [employer] HISTORICAL RESULTS Anion Gap 10 7 - 16 03/29/2018 8:47 AM [facility] [employer] HISTORICAL RESULTS Glucose 135(H) 70 - 100 mg/dL 03/29/2018 8:47 AM [facility] [employer] HISTORICAL RESULTS BUN 11 6 - 20 mg/dL 03/29/2018 8:47 AM [facility] [employer] HISTORICAL RESULTS Creatinine 0.5 0.5 - 1.1 mg/dL 03/29/2018 8:47 AM [facility] [employer] HISTORICAL RESULTS Comment: NOTE: Estimated GFR (Cockroft-Gault) will NOT be calculated unless patient Height and Weight were entered. Also, Kidney Disease Stage (GFR) and Estimated GFR (Cockroft-Gault) will NOT be calculated if Creatinine result is <0.2. Kidney Disease Stage > 90 mL/MIN 03/29/2018 8:47 AM [facility] HISTORICAL RESULTS Comment: NOTE; ??The GFR is an estimated [...] or on dialysis @ Est GFR (Cockcroft-G) 172 ml/MIN Comment: Estimated GFR(Cockroft-Gault)is used to calculate patient medication dosage Calcium 9.0 8.6 - 10.0 mg/dL Total Protein 7.1 6.4 - 8.3 g/dL Albumin 4.0 3.5 - 5.2 g/dL Globulin 3.1 2.3 - 3.5 gm/dL Albumin/Globulin Ratio 1.3 1.1 - 1.8 Total Bilirubin 0.2 0.0 - 1.2 mg/dL AST 21 0 - 32 U/L 03/29/2018 8:47 AM CDT [facility] HISTORICAL RESULTS ALT 25 0 - 33 U/L 03/29/2018 8:47 AM CDT [facility] HISTORICAL RESULTS Alkaline Phosphatase 66 35 - 104 U/L 03/29/2018 8:47 AM CDT [facility] HISTORICAL RESULTS 03/29/2018 8:08 AM CDT 03/29/2018 8:12 AM CDT Shira Gates NP LAB BLOOD ORDERABLES Final Result Performing Organization Address [facility] de Phone Number [facility] HISTORICAL RESULTS * Lipase (03/29/2018 8:08 AM CDT) Lipase 55 13 - 60 U/L 03/29/2018 8:47 AM CDT [facility] HISTORICAL RESULTS 03/29/2018 8:08 AM CDT 03/29/2018 8:12 AM CDT Shira Gates NP LAB BLOOD ORDERABLES Final Result Performing Organization Address [facility] de Phone Number [facility] HISTORICAL RESULTS * CBC with auto differential (03/29/2018 8:08 AM CDT) WBC 5.3 3.8 - 9.9 X10 3/ul 03/29/2018 8:16 AM T [facility] HISTORICAL RESULTS RBC 4.55 3.90 - 5.20 x10 6/ul 03/29/2018 8:16 AM CDT [facility] HISTORICAL RESULTS Hemoglobin 12.6 11.9 - 15.5 g/dL 03/29/2018 8:16 AM CDT [facility] HISTORICAL RESULTS Hct 38.6 35.6 - 45.5 % 03/29/2018 8:16 AM CDT [facility] HISTORICAL RESULTS MCV 84.8 81.3 - 96.4 fl 03/29/2018 8:16 AM CDT [facility] HISTORICAL RESULTS MCH 27.7 27.1 - 33.3 pg 03/29/2018 8:16 AM CDT [facility] HISTORICAL RESULTS MCHC 32.6 32.3 - 35.7 g/dl RDW 13.0 11.1 - 14.9 % Plt Count 276 150 - 400 x10 3/ul MPV 10.5 9.1 - 12.3 fl Neut % 56.8 % Immature Gran % 0.4 % 8 8:16 AM [facility] HISTORICAL RESULTS Lymph % 28.5 % [place] % 8.1 % Eos % 5.3 % Baso % 0.9 % Absolute Neuts (auto) 3.0 1.7 - 6.5 x10 3/ul Immature Gran # 0.0 0.0 - 0.1 x10 3/ul Absolute Lymphs (auto) 1.5 0.8 - 3.3 x10 3/ul Absolute Monos (auto) 0.4 0.2 - 0.8 x10 3/ul Absolute Eos (auto) 0.3 0.0 - 0.5 x10 3/ul Absolute Basos (auto) 0.1 0.0 - 0.1 x10 3/ul Nucleat RBC Rel Count 0.0 #/100WBC Absolute Nucleated RBC 0.00 0.00 - 0.01 x10 3/ul Absolute Neutrophils 3000 200 - 8000 /ul 03/29/2018 8:08 AM CDT 03/29/2018 8:12 AM CDT Shira Gates PENCILLER LAB BLOOD ORDERABLES Final Result [facility] HISTORICAL RESULTS * Urinalysis, macro and micro (03/29/2018 7:50 AM CDT) Ur Collection Type CLEAN CATCH Urine Color YELLOW YELLOW Urine Clarity Slightly-Genie udy CLEAR Urine Glucose (UA) NORMAL NORMAL mg/dL Urine Bilirubin NEGATIVE NEGATIVE mg/dl Urine Ketones NEGATIVE NEGATIVE mg/dL Ur Specific [place] 1.025 1.005 - 1.025 Urine Blood NEGATIVE NEGATIVE mg/dl Urine pH 5.0 5.0 - 8.0 Urine Protein NEGATIVE NEGATIVE mg/dL Urine Urobilinogen NORMAL NORMAL mg/dL Urine Nitrite NEGATIVE NEGATIVE Ur Leukocyte Esterase NEGATIVE NEGATIVE Shaylee/ul Ur Microscopic Review Indicated or Ordered 03/29/2018 8:11 AM CDT [facility] HISTORICAL RESULTS Urine RBC 1 0 - 2 /HPF 03/29/2018 8:11 AM CDT [facility] Urine WBC 2 0 - 2 /HPF 03/29/2018 8:11 AM CDT [facility] HIST[facility] RESULTS Urine Mucus RARE /LPF 03/29/2018 8:11 AM CDT [facility] HISTORICAL RESULTS Ur Squamous Epith Cells Rare /HPF 03/29/2018 8:11 AM T [facility] HISTORICAL RESULTS 03/29/2018 7:50 AM CDT 03/29/2018 7:55 AM CDT us Shira Gates NP LAB URINE ORDERABLES Final Result [facility] HISTORICAL RESULTS documented in this encounter Visit Diagnoses Diagnosis Diarrhea Essential (primary) hypertension Unspecified essential hypertension Uncomplicated asthma documented in this encounter
--- OUTSIDE RECORDS SUMMARY | 2024-06-05 20:40 | XMS_ITS | Encounter Summary ---
Author Organization [facility] Healthcare Address [address] [place] [address] Care Team Providers Care Group Leader [employer] Processing Name Role Phone Magy Medina NP Primary Care Provider Reason for Visit * Reason Onset Date Comments Med Refill 04/06/2021 Encounter Details Date Type Department Care Team (Late st Contact Info) Description 04/06/2021 Telephone [facility] [address] 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 Thank you. * Telephone Encounter - Emily Mcmanus - 04/06/2021 3:22 PM CDT Patient called in about her script that was supposed to be sent for meloxicam. She stated it was supposed to go to [facility]/pharmacy #[id number] - [place], [place] - [address] [facility] [address] [facility] [address] Please resend script to pharmacy above. documented in this encounter Plan of Treatment Not on file documented as of this encounter Visit Diagnoses Not on filedocumented in this encounter Care Teams Group Leader Semiconductor Processing Relationship Specialty Start Date End Date Magy Medina NP PCP - General 05/10/19 documented as of this encounter
--- OUTSIDE RECORDS SUMMARY | 2024-06-05 20:40 | XMS_ITS | Encounter Summary ---
Author Organization [facility] Address [address] [place] [address] Care Team Providers Care Farmworkers Name Role Phone Magy Medina NP Primary Care Provider Encounter Details Date Type Department Care Team (Late st Contact Info) Description 04/04/2020 5:27 PM CDT - 04/04/2020 7:15 PM CDT Hospital Encounter [address] [address] Unknown, Claude Up MD [address] [place] [id number] Discharge Disposition: Left without being seen Social History Tobacco Use Types Packs/Day Years Used Date Smoking Tobacco: Never Assessed Comments Unknown Sex and Gender Information Value Date Recorded Sex Assigned at Not on file 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 Gender Identity Not on file Sexual Orientation Not on file documented as of this encounter Last Filed Vital Signs Vital Sign Reading Time Taken Comments Blood Pressure 128/87 04/04/2020 5:35 PM CDT Pulse 89 04/04/2020 5:35 PM CDT Temperature 36.6 ??C (97.8 ??F) 04/04/2020 5:35 PM CD T Respiratory Rate - - Oxygen Saturation 99% 04/04/2020 5:35 PM CDT Inhaled Oxygen Concentration - - Weight 86 kg (189 lb 9.6 oz) 04/04/2020 5:35 PM CDT Height 157.5 cm (5' 2 ) 04/04/2020 5:35 PM CDT Body Mass Index 34.68 04/04/2020 5:35 PM CDT documented in this encounter Medications [...] Date/Time Associated Diagnosis Comments SCAN - LABS 04/05/2020 12:00 AM CDT documented in this encounter Results * SCAN - LABS (04/05/2020 12:00 AM CDT) Narrative 04/05/2020 12:00 AM CDT Ordered by an unspecified provider. us Historical Provider Final Res ult documented in this encounter Visit Diagnoses Not on filedocumented in this encounter Care Teams Farmworkers Relationship Specialty Start Date End Date Magy Medina NP PCP - General 05/10/19 documented as of this encounter
--- OUTSIDE RECORDS SUMMARY | 2024-06-05 20:40 | XMS_ITS | Encounter Summary ---
Author Organization [facility] Address [address] [place] [address] Care Team Providers Care Driver Utility Worker Name Role Phone Rosaliamario Magy [place] Primary Care Provider [phone] Encounter Details Date Type Department Care Team (Late st Contact Info) Description 08/26/2023 Documentation [facility] Physical Therapy [facility] [address] [address] Debbie Melgoza, PT Social History Tobacco Use Types Packs/Day Years Used Date Smoking Tobacco: Never Smokeless Tobacco: Never Personal Safety Answer Date Recorded Getting School Help Needed Not on file 05/26 Comments No Sex and Gender Information Value Date Recorded Sex Assigned at Not on file 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 Radiculopathy, cervical region 723.4 M54.12 Ambulatory referral order to Physical Therapy - 2. Low back pain, unspecified back pain laterality, unspecified chronicity, unspecified whether sciatica present 724.2 M54.50 Ambulatory referral order to Physical Therapy - 3. Neck pain due to patient chose not to schedule more sessions. Please refer to prior treatment/visit notes forobjective findings and goal progress. Debbie Melgoza, IZABEL [facility] Services documented in this encounter Plan of Treatment Not on file documented as of this encounter Visit Diagnoses Not on filedocumented in this encounter Care Teams Driver Utility Worker Relationship Specialty Start Date End Date Magy Medina NP PCP - General 05/10/19 documented as of this encounter
--- OUTSIDE RECORDS SUMMARY | 2024-06-05 20:40 | XMS_ITS | Encounter Summary ---
Author Organization [facility] Address [address] [place] [address] Care Team Providers Care Drafting Supervisor Name Role Phone Magy Medina NP Primary Care Provider [phone] Encounter Details Date Type Department Care Team (Late st Contact Info) Description 06/29/2019 11:18 AM SHINGLE BOLT CUTTER - 06/29/2019 2:42 PM SHINGLE BOLT CUTTER Hospital Encounter [facility] [address] [place] [address] Unknown, Osiris Kay, DO [address] [facility] [place] [address] Discharge Disposition: Discharge to home or self care Social History Tobacco Use Types Packs/Day Years Used Date Smoking Tobacco: Never Assessed Comments Unknown Sex and Gender Information Value Date Recorded Sex Assigned at Not on file Legal Sex Female 6:43 PM SHINGLE BOLT CUTTER Gender Identity Not on file Sexual Orientation Not on file documented as of this encounter Last Filed Vital Signs Vital Sign Reading Time Taken Comments Blood Pressure 131/84 06/29/2019 11:25 AM SHINGLE BOLT CUTTER Pulse 83 06/29/2019 11:25 AM SHINGLE BOLT CUTTER Temperature 36.8 ??C (98.2 ??F) 06/29/2019 11:[address] Respiratory Rate - - Oxygen Saturation 100% 06/29/2019 11:25 AM SHINGLE BOLT CUTTER Inhaled Oxygen Concentration - - Weight 82 kg (180 lb 12.5 oz) 06/29/2019 11:25 A M SHINGLE BOLT CUTTER Height 157.5 cm (5' 2 ) 06/29/2019 11:25 AM SHINGLE BOLT CUTTER Body Mass Index 33.06 06/29/2019 11:25 AM SHINGLE BOLT CUTTER documented in this encounter Medications at Time [...] Procedure Name Priority Date/Time Associated Diagnosis Comments TNI WITH LIPID PANEL Routine 06/29/2019 1:05 PM SHINGLE BOLT CUTTER CBC WITH AUTO DIFFERENTIAL Routine 06/29/2019 1:05 PM SHINGLE BOLT CUTTER COMPREHENSIVE METABOLIC PANEL Routine 06/29/2019 1:05 PM SHINGLE BOLT CUTTER DRUGS OF ABUSE SCREEN, URINE WITHOUT CONFIRMATION Routine 06/29/2019 12:00 PM SHINGLE BOLT CUTTER ECG 12-LEAD 06/29/2019 11:42 AM SHINGLE BOLT CUTTER XR FINGER 5TH PINKY RIGHT 06/29/2019 12:00 AM SHINGLE BOLT CUTTER XR CHEST PA LATERAL 2 VIEWS 06/29/2019 12:00 AM SHINGLE BOLT CUTTER documented in this encounter Results * TNI with LIPID PANEL (06/29/2019 1:05 PM SHINGLE BOLT CUTTER) Troponin I <0.300 0.000 - 0.300 ng/mL [facility] Comment: Reference using CANDY Chemiluminescence ? Negative: Repeat in 4-6 hours as indicated. Triglycerides 40 0 - 149 mg/dL [facility] Comment: National Lipid Association/NCEP Guidelines: ?? Normal ?< 150 mg/dL ?? Borderline high ?? 150-199 mg/dL ?? High ?200-499 mg/dL ?? Very High ? >=500 mg/dL Cholesterol 170 0 - 199 mg/dL [facility] Comment: National Lipid Association/NCEP Guidelines: Desirable ? < 200 mg/dL Borderline high: ??200-239 mg/dL High Risk: ?>=240 mg/dL HDL Cholesterol 54 mg/dL [facility] Comment: Reference Ranges: ? Males: >=40 mg/dL ? Females: >=50 mg/dL LDL Cholesterol, Calc 108 0 - 129 mg/dL [facility] Comment: National Lipid Association/NCEP Guidelines: ??Optimal ? < 100 mg/dL ??Near Optimal ?100-129 mg/dL ??Borderline high 130-159 mg/dL ??High ?>=160 mg/dL Cholesterol/HDL Ratio 3.1 [facility] Comment: Optimal ??< 3.5:1 High ? > 5:1 06/29/2019 1:05 PM SHINGLE BOLT CUTTER 06/29/2019 1:09 PM SHINGLE BOLT CUTTER Narrative Resulting Agency Comment ER us Jean Carlos ADORNO LAB BLOOD ORDERABLES Final Res ult [facility] [address] [place] [address], [facility] [phone] * (ABNORMAL) Comprehensive metabolic panel (06/29/2019 1:05 PM SHINGLE BOLT CUTTER) Sodium 140 135 - 145 mmol/L [facility] Potassium 3.5 3.3 - 5.1 mmol/L [facility] Chloride 104 96 - 108 mmol/L [facility] Carbon Dioxide 22 22 - 32 mmol/L [facility] Anion Gap 14 7 - 16 [facility] Glucose 112(H) 70 - 100 mg/dL [facility] BUN 8 8 - 25 mg/dL [facility] Creatinine 0.6 0.5 - 1.1 mg/dL [facility] Comment: NOTE: Estimated GFR (Cockroft-Gault) will NOT be calculated unless patient Height and Weight were entered. Also, Kidney Disease Stage (GFR) and Estimated GFR (Cockroft-Gault) will NOT be calculated if Creatinine result is <0.2. Kidney Disease Stage >90 mL/MIN [facility] Comment: NOTE; ??The GFR is an estimated [...] on dialysis Est GFR (Cockcroft-G) 140 ml/MIN [facility] Comment: Estimated GFR(Cockroft-Gault)is used to calculate patient medication dosage Calcium 9.4 8.6 - 10.3 mg/dL [facility] Total Protein 8.4(H) 6.4 - 8.3 g/dL [facility] Albumin 4.6 3.5 - 5.0 g/dL [facility] Globulin 3.8(H) 2.3 - 3.5 gm/dL [facility] Albumin/Globulin Ratio 1.2 1.1 - 1.8 [facility] Total Bilirubin 0.2 0.0 - 1.2 mg/dL [facility] AST 20 0 - 32 U/L [facility] ALT 19 0 - 33 U/L [facility] Alkaline Phosphatase 73 35 - 104 U/L [facility] 06/29/2019 1:05 PM SHINGLE BOLT CUTTER 06/29/2019 1:09 PM SHINGLE BOLT CUTTER Narrative Resulting Agency Comment ER us Jean Carlos ADORNO LAB BLOOD ORDERABLES Final Res ult [facility] [address] [place] [address], [facility] [phone] * (ABNORMAL) CBC with auto differential (06/29/2019 1:05 PM SHINGLE BOLT CUTTER) WBC 9.3 3.8 - 9.9 X10 3/ul [facility] RBC 4.79 3.90 - 5.20 x10 6/ul [facility] Hemoglobin 13.3 11.9 - 15.5 g/dL [facility] Hct 41.4 35.6 - 45.5 % [facility] MCV 86.4 81.3 - 96.4 fl [facility] MCH 27.8 27.1 - 33.3 pg [facility] MCHC 32.1(L) 32.3 - 35.7 g/dl [facility] RDW 13.0 11.1 - 14.9 % [facility] Plt Count 323 150 - 400 x10 3/ul [facility] MPV 10.2 9.1 - 12.3 fl [facility] Neut % 71.9 % [facility] Immature Gran % 0.3 % [facility] Lymph % 17.3 % [facility] [place] % 7.8 % [facility] Eos % 1.9 % [facility] AUTO BASO % 0.8 % [facility] NEUTROPHIL ABS # 6.7(H) 1.7 - 6.5 x10 3/ul [facility] Immature Gran # 0.0 0.0 - 0.1 x10 3/ul [facility] Absolute Lymphs (auto) 1.6 0.8 - 3.3 x10 3/ul [facility] Absolute Monos (auto) 0.7 0.2 - 0.8 x10 3/ul [facility] Absolute Eos (auto) 0.2 0.0 - 0.5 x10 3/ul [facility] BASOPHIL ABS # 0.1 0.0 - 0.1 x10 3/ul [facility] Nucleat RBC Rel Count 0.0 #/100WBC [facility] NRBC abs 0.00 0.00 - 0.01 x10 3/ul [facility] Absolute Neutrophils 6,700 200 - 8,000 /ul [facility] 06/29/2019 1:05 PM SHINGLE BOLT CUTTER 06/29/2019 1:09 PM SHINGLE BOLT CUTTER Narrative Resulting Agency Comment ER us Jean Carlos ADORNO LAB BLOOD ORDERABLES Final Res ult [facility] [address] [place] [address], [facility] [phone] * Drugs of Abuse Screen, Urine without Confirmation (06/29/2019 12:00 PM SHINGLE BOLT CUTTER) Pathologist [facility] Amphetamines NOT DETECTED [facility] Comment: This assay uses 500 ng/mL as a cutoff for a positive result. Barbiturates NOT DETECTED [facility] Comment: This assay uses 200 ng/mL as a cutoff for a positive result. Urine Fentanyl NOT DETECTED [facility] Comment: This assay uses 1 ng/mL as a cutoff for a positive result. Benzodiazepines NOT DETECTED [facility] Comment: This assay uses 100 ng/mL as a cutoff for a positive result. Cannabinoids NOT DETECTED [facility] Comment: This assay uses 50 ng/mL as a cutoff for a positive result. Cocaine NOT DETECTED [facility] Comment: This assay uses 150 ng/mL as a cutoff for a positive result. Opiates NOT DETECTED [facility] Comment: This assay uses 300 ng/mL as a cutoff for a positive result. Urine methadone NOT DETECTED [facility] Comment: This assay uses 300 ng/mL as a cutoff for a positive result. Urine phencyclidine plus NOT DETECTED [facility] Comment: This assay uses 25 ng/mL as a cutoff for a positive result. Oxycodone NOT DETECTED [facility] Comment: This assay uses 100 ng/mL as a cutoff for a positive result. Urine Creatinine/NIYAH 249.0 mg/dL [facility] Comment: If Creatinine is < 40 mg/dL, recollection is suggested. 06/29/2019 12:0 0 PM SHINGLE BOLT CUTTER 06/29/2019 12:15 PM SHINGLE BOLT CUTTER Narrative [facility] - 06/29/2019 12:52 PM SHINGLE BOLT CUTTER Collected By Resulting Agency Comment ER us Jean Carlos ADORNO LAB URINE ORDERABLES Final Res ult Performing Organization Address City/[facility]/ZIP Co de Phone Number [place] [id number] [address] [phone] * ECG 12 lead (06/29/2019 11:42 AM SHINGLE BOLT CUTTER) Ventricular Rate EKG/Min 70 BPM ER RADIOLOGY Atrial Rate 70 BPM ER RADIOLOGY [place]-Interval (MSEC) 154 ms ER RADIOLOGY QRS-Interval (MSEC) 86 ms ER RADIOLOGY QT-Interval (MSEC) 370 ms ER RADIOLOGY QTc 399 ms ER RADIOLOGY P [place] 55 degrees ER RADIOLOGY R [place] 27 degrees ER RADIOLOGY T [place] 32 degrees ER RADIOLOGY Diagnosis Normal sinus rhythm Low voltage QRS Borderline ECG When compared with ECG of 20-MAR-2018 12:25, No significant change was found ER RADIOLOGY 06/29/2019 11:4 2 AM SHINGLE BOLT CUTTER 06/29/2019 5:56 PM SHINGLE BOLT CUTTER Narrative Resulting Agency Comment PREADT us Jean Carlos ADORNO ECG ORDERABLES Final Result Performing Organization Address City/[facility]/ZIP Co de Phone Number ER RADIOLOGY * XR Finger 5th Pinky Right (06/29/2019 12:00 AM SHINGLE BOLT CUTTER) Anatomical Region Laterality Modality Upper Extremities, Hand, Fingers Right Radiographic Imaging 06/29/2019 12:4 6 PM SHINGLE BOLT CUTTER Narrative 06/29/2019 12:47 PM SHINGLE BOLT CUTTER Patient Name: JENNY WANG ?Ordering Dr: Jean Carlos Hwang PA-C ?? D.O.B: 1990 ? Exam Date: 06/29/19 ?? 0000 ?? Age: 28 ?Sex: Female ? MR#: [id number] ?? Loc: ? RADIOLOGY REPORT ?? Order #[id number] ?? Radiology ? Finger 5th Right 2 View Min ? Signed ?? EXAM DESCRIPTION: ??Finger 5th Right 2 View Min ? REASON FOR STUDY: ??Crush, patient passed out and fell this morning. ? TECHNIQUE: ??AP, lateral, and oblique views acquired of the right 5th digit ? COMPARISON: ??None ? FINDINGS: ? BONES/JOINTS: No acute fracture or dislocation. ? SOFT TISSUES: Soft tissue swelling about the apical tuft. ??No radiopaque ?? foreign body. ? IMPRESSION: ??No acute fracture or radiopaque foreign body. ? THIS IS AN ELECTRONICALLY VERIFIED FINAL REPORT ?? 06/29/2019 12:47 PM - Electronically signed by Josef Shepherd D.O. ?? Josef Shepherd D.O. ? AP ?? D: ??06/29/2019 12:47 PM ?? T: ? Report ID: [id number] ?? Reading Location: ??[id number] ? REPORT ELECTRONICALLY SIGNED IN OTHER VENDOR SYSTEM ?? Resulting Agency Comment P Procedure Note Josef Shepherd, - 06/29/2019 Patient Name: JENNY WANG Dr: Jean Carlos wHang PA-C, D.O.B: 1990 Exam Date: 06/29/19 0000 Age: 28 Sex: Female MR#: [id number] Loc: RADIOLOGY REPORT Order #[id number] Radiology Finger 5th Right 2 View Min Signed EXAM DESCRIPTION: Finger 5th Right 2 View Min REASON FOR STUDY: Crush, patient passed out and fell this morning. TECHNIQUE: AP, lateral, and oblique views acquired of the right 5thdigit COMPARISON: None FINDINGS: BONES/JOINTS: No acute fracture or dislocation. SOFT TISSUES: Soft tissue swelling about the apical tuft. No radiopaque foreign body. IMPRESSION: No acute fracture or radiopaque foreign body. THIS IS AN ELECTRONICALLY VERIFIED FINAL REPORT 06/29/2019 12:47 PM - Electronically signed by Josef Shepherd D.O. AP T: Report ID: [id number] Reading Location: [id number] REPORT ELECTRONICALLY SIGNED IN OTHER VENDOR SYSTEM us Jean Carlos ADORNO IMG XR PROCEDURES Final Result * XR Chest Pa Lateral 2 Views (06/29/2019 12:00 AM SHINGLE BOLT CUTTER) Anatomical Region Laterality Modality Body, Chest N/A Radiographic Ligia ging 06/29/2019 12:4 1 PM SHINGLE BOLT CUTTER Narrative 06/29/2019 12:41 PM SHINGLE BOLT CUTTER Patient Name: JENNY WANG ?Ordering Dr: Jean Carlos Hwang PA-C ?? D.O.B: 1990 ? Exam Date: 06/29/19 ?? 0000 ?? Age: 28 ?Sex: Female ? MR#: [id number] ?? Loc: ? RADIOLOGY REPORT ?? Order #[id number] ?? Radiology ? Chest 2 Views ? Signed ?? EXAM DESCRIPTION: ??Chest 2 Views ? REASON FOR STUDY: ??Acute vomiting and syncopal episode. ? TECHNIQUE: ??Frontal and lateral radiographic views of the chest acquired. ? COMPARISON: ??06/10/2018 ? FINDINGS: ? LUNGS/PLEURA: No focal consolidation or pneumothorax. No pleural effusion. ? HEART/MEDIASTINUM: Heart size is normal. Normal mediastinal and hilar contours. ? HARDWARE/LINES/TUBES: None. ? BONES: There is scoliosis noted. ? OTHER: No other significant finding. ? IMPRESSION: ??No acute cardiopulmonary abnormality. ? THIS IS AN ELECTRONICALLY VERIFIED FINAL REPORT ?? 06/29/2019 12:41 PM - Electronically signed by Jose Daniel M.D. ?? Jose Daniel M.D. ? [place] ?? D: ??06/29/2019 12:41 PM ?? T: ? Report ID: [id number] ?? Reading Location: ??[id number] ? REPORT ELECTRONICALLY SIGNED IN OTHER VENDOR SYSTEM ?? Resulting Agency Comment P Procedure Note Jose Daniel MD - 06/29/2019 Patient Name: JENNY WANG Dr: Jean Carlos Hwang PA-C, D.O.B: 1990 Exam Date: 06/29/19 0000 Age: 28 Sex: Female MR#: [id number] Loc: RADIOLOGY REPORT Order #[id number] Radiology Chest 2 Views Signed EXAM DESCRIPTION: Chest 2 Views REASON FOR STUDY: Acute vomiting and syncopal episode. TECHNIQUE: Frontal and lateral radiographic views of the chest acquired. COMPARISON: 06/10/2018 FINDINGS: LUNGS/PLEURA: No focal consolidation or pneumothorax. No pleuraleffusion. HEART/MEDIASTINUM: Heart size is normal. Normal mediastinal and hilarcontours. HARDWARE/LINES/TUBES: None. BONES: There is scoliosis noted. OTHER: No other significant finding. IMPRESSION: No acute cardiopulmonary abnormality. THIS IS AN ELECTRONICALLY VERIFIED FINAL REPORT 06/29/2019 12:41 PM - Electronically signed by Jose TATUM T: Report ID: [id number] Reading Location: [place] [address] REPORT ELECTRONICALLY SIGNED IN OTHER VENDOR SYSTEM Jean Carlos ADORNO IMG XR PROCEDURES Final Result documented in this encounter Visit Diagnoses Not on filedocumented in this encounter Care Teams Drafting Supervisor Relationship Specialty Start Date End Date Magy Medina NP PCP - General 05/10/19 documented as of this encounter
--- OUTSIDE RECORDS SUMMARY | 2024-06-05 20:40 | XMS_ITS | Encounter Summary ---
Author Organization [facility] Healthcare Address [address] [place] [address] Care Team Providers Care Herb Grower Name Role Phone Unavailable Primary Care Provider Unavailabl e Encounter Details Date Type Department Care Team (Latest Contact Info) Description 06/10/2018 11:14 PM SEAM STAYER - 06/11/2018 1:14 AM SEAM STAYER Hospital Encounter [facility] Ronald Capone MD [address] [place] [address] Acute upper respiratory infection; Essential (primary) hypertension; Other prison (current) drug therapy Social History Tobacco Use Types Packs/Day Years Used Date Smoking Tobacco: Never Assessed Comments Unknown Sex and Gender Information Value Date Recorded Sex Assigned at Not on file Legal Sex Female 6:43 PM SEAM STAYER Gender Identity Not on file Sexual Orientation Not on file documented as of this encounter Last Filed Vital Signs Vital Sign Reading Time Taken Comments Blood Pressure 135/74 06/10/2018 11:41 PM SEAM STAYER Pulse 109 06/10/2018 11:41 PM SEAM STAYER Temperature 36.8 ??C (98.2 ??F) 06/10/2018 11:[address] Respiratory Rate - - Oxygen Saturation 100% 06/10/2018 11:41 PM SEAM STAYER Inhaled Oxygen Concentration - - Weight 85.1 kg (187 lb 9.8 oz) 06/10/2018 11:41 PM SEAM STAYER Height 157.5 cm (5' 2 ) 06/10/2018 11:41 PM SEAM STAYER Body Mass Index 34.31 06/10/2018 11:41 PM SEAM STAYER documented in this encounter Medications at Time of Discharge albuterol (PROAIR DIGIHALER) 90 mcg/actuation inhaler Inhale 2 Inhalation 2 (two) times a day as needed 06/11/2018 documented as of this encounter Plan of Treatment Not on file documented as of this encounter Procedures Procedure Name Priority Date/Time Associated Diagnosis Comments XR CHEST PA LATERAL 2 VIEWS Routine 06/10/2018 12:00 AM SEAM STAYER documented in this encounter Results * XR Chest Pa Lateral 2 Views (06/10/2018 12:00 AM SEAM STAYER) Anatomical Region Laterality Modality Body, Chest N/A Radiographic Ligia ging 06/10/2018 Impressions 06/11/2018 12:23 AM SEAM STAYER ??No acute cardiopulmonary abnormality. THIS IS AN ELECTRONICALLY VERIFIED FINAL REPORT 06/11/2018 12:19 AM - Electronically signed by Silvana Hernandez M.D. JS: MELANY D: ??06/11/2018 12:19 AM T: ??06/11/2018 12:19 AM Report ID: [id number] Reading Location: ??[id number] [EOD] Narrative 06/11/2018 12:23 AM SEAM STAYER EXAM DESCRIPTION: ??Chest 2 Views REASON FOR STUDY: ??cough x 1 month worst tonight TECHNIQUE: ??Frontal and lateral radiographic views of the chest acquired. COMPARISON: ??03/20/2018 FINDINGS: LUNGS/PLEURA: No focal consolidation or pneumothorax. No pleural effusion. HEART/MEDIASTINUM: Heart size is stable. ??Unchanged mediastinal and hilar contours. HARDWARE/LINES/TUBES: None. BONES: No obvious interval change. OTHER: No other significant finding. Procedure Note Provider, MD Barry - 10/24/2020 EXAM DESCRIPTION: Chest 2 Views REASON FOR STUDY: cough x 1 month worst tonight TECHNIQUE: Frontal and lateral radiographic views of the chestacquired. COMPARISON: 03/20/2018 FINDINGS: LUNGS/PLEURA: No focal consolidation or pneumothorax. No pleuraleffusion. HEART/MEDIASTINUM: Heart size is stable. Unchanged mediastinal and hilar contours. HARDWARE/LINES/TUBES: None. BONES: No obvious interval change. OTHER: No other significant finding. IMPRESSION: No acute cardiopulmonary abnormality. THIS IS AN ELECTRONICALLY VERIFIED FINAL REPORT 06/11/2018 12:19 AM - Electronically signed by Silvana Hernandez M.D. 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
--- OUTSIDE RECORDS SUMMARY | 2024-06-05 20:40 | XMS_ITS | Encounter Summary ---
Author Organization [facility] Address [address] [place] [address] Care Team Providers Care Mophead Trimmer And Wrapper Name Role Phone Magy Medina NP Primary Care Provider [phone] Reason for Visit * Reason Comments PT Initial Eval * Physical Therapy (Routine) - Authorized Specialty Diagnoses / Procedures Referred By Contac t Referred To Contact Physical Therapy Diagnoses Radiculopathy, cervical region Low back pain, unspecified back pain laterality, unspecified chronicity, unspecified whether sciatica present Neck pain Gely Pelayo MD Phone: tel: fax: Magy Medina NP [address] [place] [address] [address] [place] [address] Phone: tel: fax: Referral ID Status Reason Start Date Expiration Date Visits Requested Visits Authorized [id number] Authorized Evaluate and Treat 07/22/2023 07/21/2024 6 12 Encounter Details Date Type Department Care Team ([facility] st Contact Info) Description 07/24/2023 5:00 PM ELECTRIC POWER LINE EXAMINER Therapy [facility] OP Physical Therapy [address] [place], [place] [id number] Lisandra Zavala, PT Radiculopathy, cervical region; Low back pain, unspecified back pain laterality, unspecified chronicity, unspecified whether sciatica present; Neck pain Social History Tobacco Use Types Packs/Day Years Used Date Smoking Tobacco: Never Smokeless Tobacco: Never Personal Safety Answer Date Recorded Getting School Help Needed Not on file 05/26 Comments No Sex and Gender Information Value Date Recorded Sex Assigned at Not on file Legal Sex Female 6:43 PM ELECTRIC POWER LINE EXAMINER Gender Identity Not on file Sexual Orientation Not on file documented as of this encounter Progress Notes * Lisandra Zavala PT - 07/24/2023 5:00 PM CST ICD-9-CM ICD-10-CM 1. Radiculopathy, cervical region 723.4 M54.12 Ambulatory referral order to Physical Therapy - 2. Low back pain, unspecified back pain laterality, unspecified chronicity, unspecified whether sciatica present 724.2 M54.50 Ambulatory referral order to Physical Therapy - 3. Neck pain 723.1 M54.2 Ambulatory referral order to Physical Therapy - GELY PELAYO PT Diagnosis: Radiculopathy, cervical region, Low back pain, Neck pain Precautions: none reported at this time Short-Term Goals: to be met by 08/22/2023 Patient will be instructed in HEP Patient's spinal ROM will be symmetrical left to right for safe driving tasks Patient's paraspinal musculature will improve to 4-/5 strength for correct lifting tasks Long-Term Goals: to be met by 09/04/2023 Patient will be independent in HEP (new and revised). Patient will resume driving her car Patient will sit for 60 minutes with minimal difficulty Patient Goal: increased strength PT Eval Date: 07/24/2023 Orders : 09/04/2023 INITIAL CERTIFICATION DATES: From 07/24/23 to 09/04/2023 Date Date Date Date Date Visit Number ADDITIONAL HEP SHEETS ISSUED Seated Colombian ball strategies Bilateral mini squats with Colombian ball between wall and her low back Supine posterior pelvic tilts Bilateral clamshells Prone alternate UE/LE lifts Pt education topics: Bilateral mid-low trapezius strengthening, prone Modalities, prn Progress Note/Re-Cert TRIC POWER LINE EXAMINER TRIC POWER LINE EXAMINER * Lisandra Zavala, PT - 07/24/2023 5:00 PM CST Images from the original note were not included. Physical Therapy Evaluation /Initial Certification 07/24/2023 Jenny Umanzor 1990 32 y.o. female GELY PELAYO ICD-9-CM ICD-10-CM 1. Radiculopathy, cervical region 723.4 M54.12 Ambulatory referral order to Physical Therapy - 2. Low back pain, unspecified back pain laterality, unspecified chronicity, unspecified whether sciatica present 724.2 M54.50 Ambulatory referral order to Physical Therapy - 3. Neck pain 723.1 M54.2 Ambulatory referral order to Physical Therapy - No past medical history on file. No past surgical history on file. Subjective: History of Present Condition Surgical Patient: no Date of Onset: 05/22/2024 Description of Onset: patient to ED for LOVE and back pain. Patient states she has already trialed physical therapy management and doesn't see how this could help her. Prior Diagnostic Tests and Results: per EMR Other Treatment for this Diagnosis: chiropractor tx Previous Physical Therapy for this Diagnosis: 2022 (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[place], [place]) Physical Work Requirements: driving, sitting, standing Prior Responsibilities in the Home Environment: cooking and cleaning Lives in: an apartment; lives alone Home environment/obstacles: stairs leading up to her 2nd level apartment Cognitive Status: follows directions and able to answer questions independently Objective: 1) Right rib hump noted with fwd bending 2) Manual muscle testin/5 strength right paraspinals, limited by pain against resistance; 4/5 strength low abdominals and bilateral gluteal musculature 3) (+) Provocation Tests: (+) Spring Test at upper thoracic and lower lumbar levels 4) C-spine ROM limitations: 25% deficit into bilateral SB; L-spine ROM is WNL Treatment Performed on This Visit: HEP given: on paper Patient education: regarding benefits of physical therapy management and conservative tx Assessment: Rehab potential or prognosis: good Patient requires additional skilled therapy services for muscular imbalances, pain, ROM loss, and for return to prior level of function. Patient participated in establishing goals. PT Diagnosis: Radiculopathy, cervical region, Low back pain, Neck pain Precautions: none reported at this time Short-Term Goals: to be met by 08/22/2023 Patient will be instructed in HEP Patient's spinal ROM will be symmetrical left to right for safe driving tasks Patient's paraspinal musculature will improve to 4-/5 strength for correct lifting tasks Long-Term Goals: to be met by 09/04/2023 Patient will be independent in HEP (new and revised). Patient will resume driving her car Patient will sit for 60 minutes with minimal difficulty Patient Goal: increased strength PT Eval Date: 07/24/2023 Orders : 09/04/2023 INITIAL CERTIFICATION DATES: From 07/24/23 to 09/04/2023 Plan: Patient will benefit from skilled physical therapy services 1 time per week for up to 6 weeks. Treatment may include: therapeutic exercise, manual therapy, gait/transfer training, neuromuscular re-education, ASTYM/Graston, and modalities as needed. Patient educated and acknowledged understanding of therapy diagnosis, prognosis, pain relief instructions, precautions, risks, benefits and agree with the treatment plan and goals. Patient will be discharged from therapy upon completion of goals, physician order, or when therapist determines patient is appropriate for discharge from skilled therapy services. Lisandra Zavala, PT, DPT [facility] ATTENTION PHYSICIAN If you are unable to electronically sign this document, please print this document and sign below to certify this plan of care/treatment plan. By signing this document, I certify that I have reviewedthis plan of care and support the treatment. Please fax back to . Thank you. Provider Signature: Date: TRIC POWER LINE EXAMINER documented in this encounter Plan of Treatment Not on file documented as of this encounter Visit Diagnoses Diagnosis Radiculopathy, cervical region Brachial neuritis or radiculitis nos Low back pain, unspecified back pain laterality, unspecified chronicity, unspecified whether sciatica present Neck pain Cervicalgia documented in this encounter Orders Outpatient Referral Count Last Ordered Date Fir st Ordered Date AMB REFERRAL ORDER TO PHYSICAL THERAPY 1 documented in this encounter Care Teams Mophead Trimmer And Wrapper Relationship Specialty Start Date End Date Magy Medina NP PCP - General 05/10/19 documented as of this encounter
--- OUTSIDE RECORDS SUMMARY | 2024-06-05 20:40 | XMS_ITS | Encounter Summary ---
Author Organization [facility] Healthcare Address [address] [place] [address] Care Team Providers Care Mortgage Closing Clerk Name Role Phone Unavailable Primary Care Provider Unavailabl e Encounter Details Date Type Department Care Team (Late st Contact Info) Description 03/07/2015 12:00 PM CDT Hospital Encounter [facility] OP Festus, Tanika Jung, DO [address] [place] [address] Screening examination for infectious disease Social History Tobacco Use Types Packs/Day Years Used Date Smoking Tobacco: Never Assessed Comments Unknown Sex and Gender Information Value Date Recorded Sex Assigned at Not on file Legal Sex Female 6:43 PM 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 GONORRHOEAE DNA PROBE GENITAL OR URINE Routine 03/07/2015 12:00 PM CDT documented in this encounter Results * N. gonorrhoeae DNA probe, genital or urine (03/07/2015 12:00 PM CDT) C. trachomatis RNA CT NOT DETECTED Comment:Chlamydia trachomati s is not detected. C. trachomatis RNA NG NOT DETECTED Comment:Neisseria gonorrhoea e is not detected. Chlamydia/GC Source URINE Comment: Xpert CT/NG Assay performance has not been evaluated in female patients <14 years of age and male patients <17 years of age[address] Xpert CT/NG Assay performance has not been evaluated in patients with a history of hysterectomy. For patients <=14 years old The GeneXpert Chlamydia trachomatis/Neisseria gonorrhoeae Amplified DNA Assay should not be used for the evaluation of suspected sexual abuse or for other medico-legal indications. Additional testing is recommended in any circumstance when false positive or false negative results could lead to adverse medical, social or psychological consequences. 03/07/2015 12:0 0 PM CDT 03/07/2015 3:29 PM CDT Tanika Mortensen DO LAB MICROBIOLOGY - GEN ERAL ORDERABLES Final Result [facility] HISTORICAL RESULTS documented in this encounter Visit Diagnoses Diagnosis Screening examination for infectious disease Screening examination for unspecified infectious disease documented in this encounter
--- OUTSIDE RECORDS SUMMARY | 2024-06-05 20:40 | XMS_ITS | Encounter Summary ---
Author Organization [facility] Healthcare Address [address] [place] [address] Care Team Providers Care Alarm Investigator Name Role Phone Unavailable Primary Care Provider Unavailabl e Encounter Details Date Type Department Care Team (Latest Contact Info) Description 03/25/2017 11:37 AM CDT - 03/25/2017 1:23 PM CDT Hospital Encounter [facility] Franc Bunch II, MD [address] [place] [address] Infection of urinary tract in in first trimester; 8 weeks gestation of ; Other superintendent container terminal (current) drug therapy Social History Tobacco Use Types Packs/Day Years Used Date Smoking Tobacco: Never Assessed Comments Unknown Sex and Gender Information Value Date Recorded Sex Assigned at Not on file Legal Sex Female 6:43 PM CERTIFIED LACTATION COUNSELOR Gender Identity Not on file Sexual Orientation Not on file documented as of this encounter Last Filed Vital Signs Vital Sign Reading Time Taken Comments Blood Pressure 113/51 03/25/2017 11:39 AM CDT Pulse 82 03/25/2017 11:39 AM CDT Temperature 36.9 ??C (98.4 ??F) 03/25/2017 11:39 AM C DT Respiratory Rate - - Oxygen Saturation 100% 03/25/2017 11:39 AM CDT Inhaled Oxygen Concentration - - Weight 78.7 kg (173 lb 8.1 oz) 03/25/2017 11:39 AM CDT Height 157.5 cm (5' 2 ) 03/25/2017 11:39 AM CDT Body Mass Index 31.73 03/25/2017 11:39 AM CDT documented in this encounter Plan of Treatment Not on file documented as of this encounter Procedures Procedure Name Priority Date/Time Associated Diagnosis Comments URINALYSIS, MACRO AND MICRO Routine 03/25/2017 12:06 PM CDT CBC WITH AUTO DIFFERENTIAL Routine 03/25/2017 12:04 PM CDT HCG, BLOOD, QUANTITATIVE Routine 03/25/2017 12:04 PM CDT COMPREHENSIVE METABOLIC PANEL Routine 03/25/2017 12:04 PM CDT documented in this encounter Results * (ABNORMAL) Urinalysis, macro and micro (03/25/2017 12:06 PM CDT) Ur Collection Type CLEAN CATCH Urine Color YELLOW YELLOW Urine Clarity Slightly-Genie udy CLEAR Urine Glucose (UA) NORMAL NORMAL mg/dL Urine Bilirubin NEGATIVE NEGATIVE mg/dl Urine Ketones NEGATIVE NEGATIVE mg/dL Ur Specific [place] 1.026(H) 1.005 - 1.025 Urine Blood NEGATIVE NEGATIVE mg/dl Urine pH 5.0 5.0 - 8.0 Urine Protein NEGATIVE NEGATIVE mg/dL Urine Urobilinogen NORMAL NORMAL mg/dL Urine Nitrite NEGATIVE NEGATIVE 03/25/2017 12:34 PM [address] [facility] HISTORICAL RESULTS Ur Leukocyte Esterase 250(H) NEGATIVE Shaylee/ul 03/25/2017 12:34 PM T [facility] HISTORICAL RESULTS Ur Microscopic Review Indicated or Ordered 03/25/2017 12:34 PM T [facility] HISTORICAL RESULTS Urine RBC 3 0 - 2 /HPF 03/25/2017 12:34 PM T [facility] HISTORICAL RESULTS Urine WBC 2 0 - 2 /HPF 03/25/2017 12:34 PM T [facility] HISTORICAL RESULTS Urine Mucus Mod /LPF 03/25/2017 12:34 PM [address] [facility] HISTORICAL RESULTS Ur Squamous Epith Cells Few /HPF 03/25/2017 12:0 6 PM CDT 03/25/2017 12:22 PM CDT Gillian ADORNO LAB URINE ORDERABLES Final Re sult [facility] HISTORICAL RESULTS * (ABNORMAL) Comprehensive metabolic panel (03/25/2017 12:04 PM CDT) Sodium 138 135 - 145 mmol/L 03/25/2017 12:42 PM T [facility] HISTORICAL RESULTS Potassium 3.5 3.3 - 5.1 mmol/L 03/25/2017 12:42 PM T [facility] HISTORICAL RESULTS Chloride 100 96 - 108 mmol/L 03/25/2017 12:42 PM T [facility] HISTORICAL RESULTS Carbon Dioxide 24 22 - 32 mmol/L 03/25/2017 12:42 PM [address] [facility] HISTORICAL RESULTS Anion Gap 14 7 - 16 03/25/2017 12:42 PM T [facility] HISTORICAL RESULTS Glucose 123(H) 70 - 100 mg/dL 03/25/2017 12:42 PM T [facility] HISTORICAL RESULTS BUN 8 6 - 20 mg/dL 03/25/2017 12:42 PM T [facility] HISTORICAL RESULTS Creatinine 0.5 0.5 - 1.1 mg/dL Comment: NOTE: Estimated [...] or on dialysis @ Est GFR (Cockcroft-G) 167 ml/MIN Comment: Estimated GFR(Cockroft-Gault)is used to calculate patient medication dosage Calcium 9.1 8.6 - 10.0 mg/dL Total Protein 7.7 6.4 - 8.3 g/dL Albumin 4.3 3.5 - 5.2 g/dL Globulin 3.4 2.3 - 3.5 gm/dL Albumin/Globulin Ratio 1.3 1.1 - 1.8 03/25/2017 12:42 PM [address] [facility] HISTORICAL RESULTS Total Bilirubin < 0.2 0.0 - 1.2 mg/dL 03/25/2017 12:42 PM CD[address] [facility] HISTORICAL RESULTS AST 12 0 - 32 U/L 03/25/2017 12:42 PM CDT [facility] HISTORICAL RESULTS ALT 12 0 - 33 U/L 03/25/2017 12:42 PM CDT [facility] HISTORICAL RESULTS Alkaline Phosphatase 50 35 - 104 U/L 03/25/2017 12:42 PM [address] [facility] HISTORICAL RESULTS 03/25/2017 12:0 4 PM CDT 03/25/2017 12:10 PM CDT us Gillian ADORNO LAB BLOOD ORDERABLES Final Re sult [facility] HISTORICAL RESULTS * CBC with auto differential (03/25/2017 12:04 PM CDT) WBC 6.9 4.6 - 10.2 x10 3/ul 03/25/2017 12:15 PM [address] [facility] HISTORICAL RESULTS RBC 4.61 3.76 - 4.80 x10 6/ul 03/25/2017 12:15 PM [address] [facility] HISTORICAL RESULTS Hemoglobin 13.1 11.0 - 15.0 g/dl 03/25/2017 12:15 PM [address] [facility] HISTORICAL RESULTS Hct 40.1 33.0 - 43.0 % 03/25/2017 12:15 PM [address] [facility] HISTORICAL RESULTS MCV 87.0 80.0 - 97.0 fl 03/25/2017 12:15 PM CD[address] [facility] HISTORICAL RESULTS MCH 28.4 27.0 - 31.2 pg 03/25/2017 12:15 PM [address] [facility] HISTORICAL RESULTS MCHC 32.7 31.8 - 35.4 g/dl 03/25/2017 12:15 PM [address] [facility] HISTORICAL RESULTS RDW 13.0 11.6 - 14.8 % 03/25/2017 12:15 PM [address] [facility] HISTORICAL RESULTS Plt Count 309 124 - 400 x10 3/ul MPV 10.0 7.4 - 10.4 fl Neut % 57.4 37.0 - 85.0 % Immature Gran % 0.1 0.0 - 3.0 % Lymph % 31.7 5.0 - 45.0 % [place] % 6.9 3.0 - 15.0 % Eos % 3.3 0.0 - 7.0 % Baso % 0.6 0.0 - 2.0 % Absolute Neuts (auto) 4.0 1.7 - 8.7 x10 3/ul Immature Gran # 0.0 0.0 - 0.3 x10 3/ul Absolute Lymphs (auto) 2.2 0.2 - 4.6 x10 3/ul Absolute Monos (auto) 0.5 0.1 - 1.5 x10 3/ul Absolute Eos (auto) 0.2 0.0 - 0.7 x10 3/ul Absolute Basos (auto) 0.0 0.0 - 0.2 x10 3/ul Nucleat RBC Rel Count 0.0 0 - 3 #/100WBC Absolute Nucleated RBC 0.00 x10 3/ul 03/25/2017 12:15 PM CD[address] [facility] HISTORICAL RESULTS Absolute Neutrophils 4000 200 - 8000 /ul 03/25/2017 12:15 PM CD[address] [facility] HISTORICAL RESULTS 03/25/2017 12:0 4 PM CDT 03/25/2017 12:10 PM CDT us Gillian Munoz PA LAB BLOOD ORDERABLES Final Re sult [facility] HISTORICAL RESULTS * (ABNORMAL) hCG, blood, quantitative (03/25/2017 12:04 PM CDT) Beta HCG, Quant 42044.0(H) 0.0 - 1.0 mIU/mL 03/25/2017 1:15 PM [address] [facility] HISTORICAL RESULTS Comment: Weeks of preg ?BHCG ? Weeks of preg ? BHCG ?3 ? 5.8-71.2 ?10 ? 46,509-186,977 ?4 ? 9.5-750 ? 12 ? 27,832-210,612 ?5 ? 217-7,138 ? 14 ? 13,950-62,530 ?6 ? 158-31,795 ?15 ? 12,039-70,971 ?7 ?3,697-163,563 ?16 ?9,040-56,451 ?8 ? 32,065-149,571 ?17 ?8,175-55,868 ?9 ? 63,803-151,410 ?18 ?8,099-58,176 Post-menopause: ??0-8.3 ?METHOD: ??Reshma ECLIA Intended for the early detection of . ? 03/25/2017 12:0 4 PM CDT 03/25/2017 12:10 PM CDT us Gillian ADORNO LAB BLOOD ORDERABLES Final Re sult [facility] HISTORICAL RESULTS documented in this encounter Visit Diagnoses Diagnosis Infection of urinary tract in in first trimester 8 weeks gestation of Other superintendent container terminal (current) drug therapy documented in this encounter
--- OUTSIDE RECORDS SUMMARY | 2024-06-05 20:41 | XMS_ITS | Encounter Summary ---
Author Organization [facility] Healthcare Address [address] [place] [address] Care Team Providers Care Oracle Developer Name Role Phone Unavailable Primary Care Provider Unavailabl e Encounter Details Date Type Department Care Team (Late st Contact Info) Description 09/19/2014 9:45 AM CDT Hospital Encounter [facility] Yeimy Baxter, MANAGER PROVIDER RELATIONS [address] [place] [address] state, incidental Social History Tobacco Use Types Packs/Day Years Used Date Smoking Tobacco: Never Assessed Comments Unknown Sex and Gender Information Value Date Recorded Sex Assigned at Not on file Legal Sex Female 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 HISTORICAL RESULTS 09/19/2014 10:5 0 AM CDT 09/19/2014 12:43 PM CDT Narrative [facility] HISTORICAL RESULTS - 09/19/2014 1:25 PM CDT GTT1 GTT1 GEST GLU1 from [id number]. us Yeimy Lennon MANAGER PROVIDER RELATIONS LAB BLOOD ORDERABLES Final R esult [facility] HISTORICAL RESULTS * (ABNORMAL) CBC with auto differential (09/19/2014 10:50 AM CDT) [facility] WBC 5.9 4.6 - 10.2 x10 3/ul 09/19/2014 1:[address] [facility] HISTORICAL RESULTS RBC 3.58(L) 3.76 - 4.80 x10 6/ul 09/19/2014 1:[address] [facility] HISTORICAL RESULTS Hemoglobin 10.3(L) 11.0 - 15.0 g/dl 09/19/2014 1:[address] [facility] HISTORICAL RESULTS Hct 31.7(L) 33.0 - 43.0 % 09/19/2014 1:[address] [facility] HISTORICAL RESULTS MCV 88.5 80.0 - 97.0 fl 09/19/2014 1:[address] [facility] HISTORICAL RESULTS MCH 28.8 27.0 - 31.2 pg MCHC 32.5 31.8 - 35.4 g/dl RDW 13.8 11.6 - 14.8 % Plt Count 272 124 - 400 x10 3/ul MPV 10.1 7.4 - 10.4 fl Differential Method AUTOMATED DIFF --------- -- Neut % 63.9 37.0 - 85.0 % Immature Gran % 0.2 0.0 - 3.0 % Lymph % 23.0 5.0 - 45.0 % [place] % 8.3 3.0 - 15.0 % Eos % 4.1 0.0 - 7.0 % Baso % 0.5 0.0 - 2.0 % ABSOLUTE COUNTS ABSOLUTE COUNTS --------- -- Absolute Neuts (auto) 3.8 1.7 - 8.7 x10 3/ul Immature Gran # 0.0 0.0 - 0.3 x10 3/ul Absolute Lymphs (auto) 1.4 0.2 - 4.6 x10 3/ul Absolute Monos (auto) 0.5 0.1 - 1.5 x10 3/ul Absolute Eos (auto) 0.2 0.0 - 0.7 x10 3/ul Absolute Basos (auto) 0.0 0.0 - 0.2 x10 3/ul 09/19/2014 10:5 0 AM T 09/19/2014 12:43 PM CDT us Yeimy Lennon MANAGER PROVIDER RELATIONS LAB BLOOD ORDERABLES Final R esult [facility] H[facility]ORICAL RESULTS * Glucose, 1 hour 100gm, gestational screen (09/19/2014 9:47 AM CDT) [facility] Signature Gestat Glucose Screen 09/19/2014 1:25 PM CDT [facility]ULTS Comment: TRUTOL REQUIRED: 5.0 ounces (Screen for Gestational Diabetes) 09/19/2014 9:47 AM CDT Narrative [facility] [employer] HISTORICAL RESULTS - 09/19/2014 1:25 PM CDT us Yeimy Lennon MANAGER PROVIDER RELATIONS LAB BLOOD ORDERABLES Final R esult [facility] HISTORICAL RESULTS documented in this encounter Visit Diagnoses Diagnosis state, incidental documented in this encounter
--- OUTSIDE RECORDS SUMMARY | 2024-06-05 20:41 | XMS_ITS | Encounter Summary ---
Author Organization [facility] Healthcare Address [address] [place] [address] Care Team Providers Care Link Trainer Operator Name Role Phone Unavailable Primary Care Provider Unavailabl e Encounter Details Date Type Department Care Team (Late st Contact Info) Description 07/01/2014 2:32 PM LANG PATH THERAPIST Hospital Encounter [facility] Yeimy Baxter, SUPERVISOR TRAIN OPERATIONS [address] [place] [address] state, incidental Social History Tobacco Use Types Packs/Day Years Used Date Smoking Tobacco: Never Assessed Comments Unknown Sex and Gender Information Value Date Recorded Sex Assigned at Not on file Legal Sex Female 6:43 PM LANG PATH THERAPIST Gender Identity Not on file Sexual Orientation Not on file documented as of this encounter Plan of Treatment Not on file documented as of this encounter Procedures Procedure Name Priority Date/Time Associated Diagnosis Comments GLUCOSE TOLERANCE, 1 HOUR Routine 07/01/2014 3:33 PM LANG PATH THERAPIST GLUCOSE, 1 HOUR 100GM, GESTATIONAL SCREEN Routine 07/01/2014 2:32 PM LANG PATH THERAPIST documented in this encounter Results * Glucose tolerance, 1 hour (07/01/2014 3:33 PM LANG PATH THERAPIST) Glucose GTT 1 121 120 - 170 mg/dL 07/01/2014 3:33 PM LANG PATH THERAPIST 07/01/2014 5:09 PM LANG PATH THERAPIST Narrative [facility] [employer] HISTORICAL RESULTS - 07/01/2014 5:34 PM LANG PATH THERAPIST GTT1 GTT1 GEST GLU1 from [id number]. us Yeimy Lennon SUPERVISOR TRAIN OPERATIONS LAB BLOOD ORDERABLES Final R esult [facility] [employer] HISTORICAL RESULTS * Glucose, 1 hour 100gm, gestational screen (07/01/2014 2:32 PM LANG PATH THERAPIST) Gestat Glucose Screen 07/01/2014 5:34 PM LANG PATH THERAPIST [facility] [employer] HISTORICAL RESULTS Comment: TRUTOL REQUIRED: 5.0 ounces (Screen for Gestational Diabetes) 07/01/2014 2:32 PM LANG PATH THERAPIST Narrative [facility] [employer] HISTORICAL RESULTS - 07/01/2014 5:34 PM LANG PATH THERAPIST us Yeimy Lennon NP LAB BLOOD ORDERABLES Final R esult [facility] [employer] HISTORICAL RESULTS documented in this encounter Visit Diagnoses Diagnosis state, incidental documented in this encounter
--- OUTSIDE RECORDS SUMMARY | 2024-06-05 20:41 | XMS_ITS | Encounter Summary ---
Author Organization [facility] Healthcare Address [address] [place] [address] Care Team Providers Care Supervisor Paste Plant Name Role Phone Unavailable Primary Care Provider Unavailabl e Encounter Details Date Type Department Care Team (Late st Contact Info) Description 09/29/2014 4:13 PM CDT Hospital Encounter [facility] Yeimy Baxter, [place] [address] [place] [address] Encounter for supervision of normal in multigravida; Other specified hemorrhage in early , antepartum Social History Tobacco Use Types Packs/Day Years Used Date Smoking Tobacco: Never Assessed Comments Unknown Sex and Gender Information Value Date Recorded Sex Assigned at Not on file Legal Sex Female 6:43 PM PRECISION CROP MANAGER Gender Identity Not on file Sexual Orientation Not on file documented as of this encounter Plan of Treatment Not on file documented as of this encounter Procedures Procedure Name Priority Date/Time Associated Diagnosis Comments FIBRONECTIN Routine 09/29/2014 4:1 5 PM CDT documented in this encounter Results * fibronectin (09/29/2014 4:15 PM CDT) Fibronectin NEGATIVE 09/29/2014 7:11 PM CDT [facility] HISTORICAL RESULTS Comment: A Negative fFN indicates a 99.2% probability that delivery ?? will NOT occur within the next 14 days. ?? A Positive fFN indicates a 16.7% probability that delivery ?? WILL occur within the next 14 days. 09/29/2014 4:15 PM CDT 09/29/2014 6:45 PM CDT us Yeimy Lennon NP LAB BODY FLUIDS AND STOOLS O RDERABLES Final Result [facility] HISTORICAL RESULTS documented in this encounter Visit Diagnoses Diagnosis Encounter for supervision of normal in multigravida Other specified hemorrhage in early , antepartum documented in this encounter
--- OUTSIDE RECORDS SUMMARY | 2024-06-05 20:41 | XMS_ITS | Encounter Summary ---
Author Organization [facility] Healthcare Address [address] [place] [address] Care Team Providers Care Bark Scaler Name Role Phone Unavailable Primary Care Provider Unavailabl e Encounter Details Date Type Department Care Team (Latest Contact Info) Description 05/24/2014 11:25 AM FRONT OFFICE SECRETARY - 05/24/2014 2:31 PM FRONT OFFICE SECRETARY Hospital Encounter [facility] Christofer Whitney MD [address] [place] [address] Papyraceous fetus, antepartum; Other current maternal conditions classifiable elsewhere, antepartum; Asthma Social History Tobacco Use Types Packs/Day Years Used Date Smoking Tobacco: Never Assessed Comments Unknown Sex and Gender Information Value Date Recorded Sex Assigned at Not on file Legal Sex Female 6:43 PM FRONT OFFICE SECRETARY Gender Identity Not on file Sexual Orientation Not on file documented as of this encounter Last Filed Vital Signs Vital Sign Reading Time Taken Comments Blood Pressure 125/77 05/24/2014 11:40 AM FRONT OFFICE SECRETARY Pulse 80 05/24/2014 11:40 AM FRONT OFFICE SECRETARY Temperature 36.5 ??C (97.7 ??F) 05/24/2014 11:[address] Respiratory Rate - - Oxygen Saturation 100% 05/24/2014 11:40 AM FRONT OFFICE SECRETARY Inhaled Oxygen Concentration - - Weight 67.1 kg (148 lb) 05/24/2014 11:40 AM FRONT OFFICE SECRETARY Height 157.5 cm (5' 2 ) 05/24/2014 11:40 AM FRONT OFFICE SECRETARY Body Mass Index 27.07 05/24/2014 11:40 AM FRONT OFFICE SECRETARY documented in this encounter Plan of Treatment Not on file documented as of this encounter Procedures Procedure Name Priority Date/Time Associated Diagnosis Comments CBC WITH AUTO DIFFERENTIAL Routine 05/24/2014 12:35 PM FRONT OFFICE SECRETARY HCG, BLOOD, QUANTITATIVE Routine 05/24/2014 12:35 PM FRONT OFFICE SECRETARY COMPREHENSIVE METABOLIC PANEL Routine 05/24/2014 12:35 PM FRONT OFFICE SECRETARY URINALYSIS AND REFLEX TO MICROSCOPIC AND CULTURE Routine 05/24/2014 12:15 PM FRONT OFFICE SECRETARY documented in this encounter Results * Comprehensive metabolic panel (05/24/2014 12:35 PM FRONT OFFICE SECRETARY) Sodium 138 135 - 145 mmol/L 05/24/2014 1:21 PM [facility] HISTORICAL RESULTS Comment: Due to a Calibration adjustment, results may vary by +2 mmol/l as compared to results obtained prior to ?? May 11, 2014 Potassium 3.4 3.3 - 5.1 mmol/L 05/24/2014 1:21 PM [facility] HISTORICAL RESULTS Comment: Due to a Calibration adjustment, results may vary by +0.2 mmol/l as compared to results obtained prior to May 11, 2014 Chloride 100 96 - 108 mmol/L 05/24/2014 1:21 PM [facility] HISTORICAL RESULTS Carbon Dioxide 25 22 - 32 mmol/L 05/24/2014 1:21 PM [facility] HISTORICAL RESULTS Anion Gap 13 7 - 16 05/24/2014 1:21 PM [facility] HISTORICAL RESULTS Glucose 90 70 - 100 mg/dL 05/24/2014 1:21 PM [facility] HISTORICAL RESULTS Comment:As of May 11 14 new normal range in use. BUN 9 6 - 20 mg/dL 05/24/2014 1:21 PM [facility] HISTORICAL RESULTS Creatinine 0.5 0.5 - 1.1 mg/dL 05/24/2014 1:21 PM [facility] HISTORICAL RESULTS Kidney Disease Stage > 90 mL/MIN Comment: NOTE; ??The GFR is an estimated value using the creatinine, sex, age, and race of the patient. THE ESTIMATED GFR IS VALIDATED FOR AGES 18-70 YEARS STAGE ?mL/Min ?DESCRIPTION ??1 ?90 mL/min or more ?Normal or elevated GFR ??2 ? 60-89 mL/min ?Mildly decreased GFR ??3 ? 30-59 mL/min ?Moderately decreased GFR ??4 ? 15-29 mL/min ?Severely decreased GFR ??5 ? <15 mL/min ? Kidney failure or on dialysis @ Calcium 9.6 8.6 - 10.0 mg/dL Total Protein 8.1 6.4 - 8.3 g/dL Albumin 4.6 3.5 - 5.2 g/dL Globulin 3.5 2.3 - 3.5 gm/dL Albumin/Globulin Ratio 1.3 1.1 - 1.8 Total Bilirubin 0.2 0.0 - 1.2 mg/dL AST 14 0 - 32 U/L 05/24/2014 1:21 PM FRONT OFFICE SECRETARY [facility] ALT 13 0 - 33 U/L Alkaline Phosphatase 53 35 - 104 U/L 05/24/2014 12:3 5 PM FRONT OFFICE SECRETARY 05/24/2014 12:44 PM FRONT OFFICE SECRETARY Narrative [facility] HISTORICAL RESULTS - 05/24/2014 1:21 PM FRONT OFFICE SECRETARY us Federica Hoangannie FISHERMAN HELPER LAB BLOOD ORDERABLES Final Re sult [facility] HISTORICAL RESULTS * CBC with auto differential (05/24/2014 12:35 PM FRONT OFFICE SECRETARY) WBC 7.6 4.6 - 10.2 x10 3/ul RBC 4.78 3.76 - 4.80 x10 6/ul Hemoglobin 13.8 11.0 - 15.0 g/dl Hct 41.1 33.0 - 43.0 % MCV 86.0 80.0 - 97.0 fl MCH 28.9 27.0 - 31.2 pg MCHC 33.6 31.8 - 35.4 g/dl RDW 12.4 11.6 - 14.8 % Plt Count 292 124 - 400 x10 3/ul MPV 9.9 7.4 - 10.4 fl Differential Method AUTOMATED DIFF --------- -- Neut % 62.6 37.0 - 85.0 % Immature Gran % 0.3 0.0 - 3.0 % Lymph % 25.6 5.0 - 45.0 % [place] % 8.3 3.0 - 15.0 % Eos % 2.8 0.0 - 7.0 % Baso % 0.4 0.0 - 2.0 % ABSOLUTE COUNTS ABSOLUTE COUNTS --------- -- Absolute Neuts (auto) 4.8 1.7 - 8.7 x10 3/ul Immature Gran # 0.0 0.0 - 0.3 x10 3/ul Absolute Lymphs (auto) 1.9 0.2 - 4.6 x10 3/ul Absolute Monos (auto) 0.6 0.1 - 1.5 x10 3/ul Absolute Eos (auto) 0.2 0.0 - 0.7 x10 3/ul Absolute Basos (auto) 0.0 0.0 - 0.2 x10 3/ul 05/24/2014 12:3 5 PM FRONT OFFICE SECRETARY 05/24/2014 12:44 PM FRONT OFFICE SECRETARY Narrative [facility] HISTORICAL RESULTS - 05/24/2014 1:05 PM FRONT OFFICE SECRETARY us Federica Dillard FISHERMAN HELPER LAB BLOOD ORDERABLES Final Re sult [facility] HISTORICAL RESULTS * (ABNORMAL) hCG, blood, quantitative (05/24/2014 12:35 PM FRONT OFFICE SECRETARY) Beta HCG, Quant 47366.0(H) 0.0 - 1.0 mIU/mL 05/24/2014 1:50 PM FRONT OFFICE SECRETARY [facility] HISTORICAL RESULTS Comment: Weeks of preg [...] for the early detection of . ? 05/24/2014 12:3 5 PM FRONT OFFICE SECRETARY 05/24/2014 12:44 PM FRONT OFFICE SECRETARY Narrative [facility] HISTORICAL RESULTS - 05/24/2014 1:50 PM FRONT OFFICE SECRETARY us Federica Dillard FISHERMAN HELPER LAB BLOOD ORDERABLES Final Re sult [facility] HISTORICAL RESULTS * (ABNORMAL) Urinalysis reflex to microscopic and culture (05/24/2014 12:15 PM FRONT OFFICE SECRETARY) Ur Collection Type CLEAN CATCH Ur Culture Indicated? C&S NOT INDICATED Urine Color YELLOW YELLOW Urine Clarity HAZY CLEAR Urine Glucose (UA) NORMAL NORMAL mg/dL Urine Bilirubin NEGATIVE NEGATIVE mg/dl Urine Ketones 10(H) NEGATIVE mg/dL Ur Specific [place] 1.026(H) 1.005 - 1.025 Urine Blood NEGATIVE NEGATIVE mg/dl Urine pH 6.5 5.0 - 8.0 Urine Protein 30(H) NEGATIVE mg/dL Urine Urobilinogen NORMAL NORMAL mg/dL Urine Nitrite NEGATIVE NEGATIVE Ur Leukocyte Esterase NEGATIVE NEGATIVE Shaylee/ul Ur Microscopic Review Indicated or Ordered Urine RBC 1 0 - 2 /HPF Urine WBC 2 0 - 2 /HPF 05/24/2014 12:49 PM FRONT OFFICE SECRETARY [facility] HISTORICAL RESULTS Urine Mucus Marked /LPF 05/24/2014 12:49 PM FRONT OFFICE SECRETARY [facility] HISTORICAL RESULTS Ur Squamous Epith Cells Few /HPF 05/24/2014 12:49 PM FRONT OFFICE SECRETARY [facility] HISTORICAL RESULTS 05/24/2014 12:1 5 PM FRONT OFFICE SECRETARY 05/24/2014 12:42 PM FRONT OFFICE SECRETARY Narrative [facility] HISTORICAL RESULTS - 05/24/2014 12:49 PM FRONT OFFICE SECRETARY Collected By kr ?? [phone] ?? us Federica Dillard NP LAB MICROBIOLOGY - GENERAL OR DERABLES Final Result [facility] HISTORICAL RESULTS documented in this encounter Visit Diagnoses Diagnosis Papyraceous fetus, antepartum Other current maternal conditions classifiable elsewhere, antepartum Asthma Unspecified asthma documented in this encounter
--- OUTSIDE RECORDS SUMMARY | 2024-06-05 20:41 | XMS_ITS | Encounter Summary ---
Author Organization [facility] Healthcare Address [address] [place] [address] Care Team Providers Care Activity Aid Name Role Phone Unavailable Primary Care Provider Unavailabl e Encounter Details Date Type Department Care Team (Late st Contact Info) Description 10/17/2014 12:15 PM CDT Hospital Encounter [facility] OP Festus, Tanika Amadorroderick, DO [address] [place] [address] state, incidental Social History Tobacco Use Types Packs/Day Years Used Date Smoking Tobacco: Never Assessed Comments Unknown Sex and Gender Information Value Date Recorded Sex Assigned at Not on file Legal Sex Female 6:43 PM DIE BAKER Gender Identity Not on file Sexual Orientation Not on file documented as of this encounter Plan of Treatment Not on file documented as of this encounter Visit Diagnoses Diagnosis state, incidental documented in this encounter
--- OUTSIDE RECORDS SUMMARY | 2024-06-05 20:41 | XMS_ITS | Encounter Summary ---
Author Organization [facility] Address [address] [place] [address] Care Team Providers Care Field Supervisor Seed Production Name Role Phone Unavailable Primary Care Provider Unavailabl e Encounter Details Date Type Department Care Team (Latest Contact Info) Description 06/26/2014 10:50 AM DRILLING FIELD SPECIALIST - 06/26/2014 2:53 PM DRILLING FIELD SPECIALIST Hospital Encounter [facility] ER Mild hyperemesis gravidarum, antepartum; Other current maternal conditions classifiable elsewhere, antepartum; Esophageal reflux; Encounter for long-term (current) use of other medications Social History Tobacco Use Types Packs/Day Years Used Date Smoking Tobacco: Never Assessed Comments Unknown Sex and Gender Information Value Date Recorded Sex Assigned at Not on file Legal Sex Female 6:43 PM DRILLING FIELD SPECIALIST Gender Identity Not on file Sexual Orientation Not on file documented as of this encounter Last Filed Vital Signs Vital Sign Reading Time Taken Comments Blood Pressure 114/65 06/26/2014 10:59 AM DRILLING FIELD SPECIALIST Pulse 88 06/26/2014 10:59 AM DRILLING FIELD SPECIALIST Temperature 37 ??C (98.6 ??F) 06/26/2014 10:59 AM DRILLING FIELD SPECIALIST Respiratory Rate - - Oxygen Saturation 100% 06/26/2014 10:59 AM DRILLING FIELD SPECIALIST Inhaled Oxygen Concentration - - Weight 74.4 kg (164 lb) 06/26/2014 10:59 AM DRILLING FIELD SPECIALIST Height 157.5 cm (5' 2 ) 06/26/2014 10:59 AM DRILLING FIELD SPECIALIST Body Mass Index 30 06/26/2014 10:59 AM DRILLING FIELD SPECIALIST documented in this encounter Plan of Treatment Not on file documented as of this encounter Procedures Procedure Name Priority Date/Time Associated Diagnosis Comments URINALYSIS AND REFLEX TO MICROSCOPIC AND CULTURE Routine 06/26/2014 11:53 AM DRILLING FIELD SPECIALIST CBC WITH AUTO DIFFERENTIAL Routine 06/26/2014 11:42 AM DRILLING FIELD SPECIALIST HCG, BLOOD, QUANTITATIVE Routine 06/26/2014 11:42 AM DRILLING FIELD SPECIALIST LIPASE Routine 06/26/2014 11:42 AM DRILLING FIELD SPECIALIST AMYLASE Routine 06/26/2014 11:42 AM DRILLING FIELD SPECIALIST COMPREHENSIVE METABOLIC PANEL Routine 06/26/2014 11:42 AM DRILLING FIELD SPECIALIST documented in this encounter Results * (ABNORMAL) Urinalysis reflex to microscopic and culture (06/26/2014 11:53 AM DRILLING FIELD SPECIALIST) Ur Collection Type CLEAN CATCH 06/26/2014 12:20 PM [facility] [employer] HISTORICAL RESULTS Ur Culture Indicated? C&S NOT INDICATED 06/26/2014 12:20 PM [facility] [employer] HISTORICAL RESULTS Urine Color YELLOW YELLOW 06/26/2014 12:20 PM [facility] [employer] HISTORICAL RESULTS Urine Clarity HAZY CLEAR 06/26/2014 12:20 PM [facility] [employer] HISTORICAL RESULTS Urine Glucose (UA) NORMAL NORMAL mg/dL 06/26/2014 12:20 PM [facility] [employer] HISTORICAL RESULTS Urine Bilirubin NEGATIVE NEGATIVE mg/dl 06/26/2014 12:20 PM [facility] [employer] HISTORICAL RESULTS Urine Ketones 150(H) NEGATIVE mg/dL 06/26/2014 12:20 PM [facility] [employer] HISTORICAL RESULTS Ur Specific [place] 1.026(H) 1.005 - 1.025 06/26/2014 12:20 PM [facility] [employer] HISTORICAL RESULTS Urine Blood NEGATIVE NEGATIVE mg/dl 06/26/2014 12:20 PM [facility] [employer] HISTORICAL RESULTS Urine pH 6.0 5.0 - 8.0 06/26/2014 12:20 PM [facility] [employer] HISTORICAL RESULTS Urine Protein 30(H) NEGATIVE mg/dL 06/26/2014 12:20 PM [facility] [employer] HISTORICAL RESULTS Urine Urobilinogen NORMAL NORMAL mg/dL Urine Nitrite NEGATIVE NEGATIVE 06/26/2014 12:20 PM DRILLING FIELD SPECIALIST [facility] HISTORICAL RESULTS Ur Leukocyte Esterase NEGATIVE NEGATIVE Shaylee/ul 06/26/2014 12:20 PM DRILLING FIELD SPECIALIST [facility] HISTORICAL RESULTS Ur Microscopic Review Indicated or Ordered Urine RBC 0-1 0 - 2 /HPF Urine Mucus MODERATE /LPF Ur Squamous Epith Cells FEW /LPF 06/26/2014 11:5 3 AM DRILLING FIELD SPECIALIST 06/26/2014 12:00 PM DRILLING FIELD SPECIALIST Narrative [facility] HISTORICAL RESULTS - 06/26/2014 12:20 PM DRILLING FIELD SPECIALIST Collected By [facility] ?? [phone] ?? Shira Gates NP LAB MICROBIOLOGY - GENERAL ORDERABLES Final Result [facility] HISTORICAL RESULTS * Lipase (06/26/2014 11:42 AM DRILLING FIELD SPECIALIST) Lipase 36 13 - 60 U/L 06/26/2014 11:4 2 AM DRILLING FIELD SPECIALIST 06/26/2014 11:46 AM DRILLING FIELD SPECIALIST Shira Gates PROTOCOL OFFICER LAB BLOOD ORDERABLES Final Result [facility] HISTORICAL RESULTS * (ABNORMAL) Comprehensive metabolic panel (06/26/2014 11:42 AM DRILLING FIELD SPECIALIST) Sodium 138 135 - 145 mmol/L Potassium 3.9 3.3 - 5.1 mmol/L Chloride 100 96 - 108 mmol/L Carbon Dioxide 23 22 - 32 mmol/L Anion Gap 15 7 - 16 Glucose 85 70 - 100 mg/dL Comment:As of May 11 14 new normal range in use. BUN 9 6 - 20 mg/dL Creatinine 0.5 0.5 - 1.1 mg/dL Kidney Disease Stage > 90 mL/MIN Comment: [...] Kidney failure or on dialysis @ Calcium 10.3(H) 8.6 - 10.0 mg/dL 06/26/2014 12:17 PM [facility] Modern Feed [facility] HISTORICAL RESULTS Total Protein 8.3 6.4 - 8.3 g/dL Albumin 4.5 3.5 - 5.2 g/dL Globulin 3.8(H) 2.3 - 3.5 gm/dL Albumin/Globulin Ratio 1.2 1.1 - 1.8 06/26/2014 12:17 PM DRILLING FIELD SPECIALIST [facility] HISTORICAL RESULTS Total Bilirubin < 0.2 0.0 - 1.2 mg/dL 06/26/2014 12:17 PM DRILLING FIELD SPECIALIST [facility] HISTORICAL RESULTS AST 16 0 - 32 U/L ALT 14 0 - 33 U/L Alkaline Phosphatase 50 35 - 104 U/L 06/26/2014 11:4 2 AM DRILLING FIELD SPECIALIST 06/26/2014 11:46 AM DRILLING FIELD SPECIALIST Shira Gates PROTOCOL OFFICER LAB BLOOD ORDERABLES Final Result [facility] HISTORICAL RESULTS * CBC with auto differential (06/26/2014 11:42 AM DRILLING FIELD SPECIALIST) WBC 7.2 4.6 - 10.2 x10 3/ul RBC 4.74 3.76 - 4.80 x10 6/ul Hemoglobin 13.6 11.0 - 15.0 g/dl Hct 40.5 33.0 - 43.0 % MCV 85.4 80.0 - 97.0 fl MCH 28.7 27.0 - 31.2 pg MCHC 33.6 31.8 - 35.4 g/dl RDW 12.4 11.6 - 14.8 % Plt Count 305 124 - 400 x10 3/ul MPV 9.9 7.4 - 10.4 fl Differential Method AUTOMATED DIFF --------- -- Neut % 66.9 37.0 - 85.0 % Immature Gran % 0.1 0.0 - 3.0 % Lymph % 21.3 5.0 - 45.0 % [place] % 7.7 3.0 - 15.0 % Eos % 3.6 0.0 - 7.0 % Baso % 0.4 0.0 - 2.0 % ABSOLUTE COUNTS ABSOLUTE COUNTS --------- -- Absolute Neuts (auto) 4.8 1.7 - 8.7 x10 3/ul Immature Gran # 0.0 0.0 - 0.3 x10 3/ul Absolute Lymphs (auto) 1.5 0.2 - 4.6 x10 3/ul Absolute Monos (auto) 0.6 0.1 - 1.5 x10 3/ul Absolute Eos (auto) 0.3 0.0 - 0.7 x10 3/ul Absolute Basos (auto) 0.0 0.0 - 0.2 x10 3/ul 06/26/2014 11:52 AM DRILLING FIELD SPECIALIST [facility] HISTORICAL RESULTS 06/26/2014 11:4 2 AM DRILLING FIELD SPECIALIST 06/26/2014 11:46 AM DRILLING FIELD SPECIALIST us Shira Gates PROTOCOL OFFICER LAB BLOOD ORDERABLES Final Result [facility] HISTORICAL RESULTS * (ABNORMAL) hCG, blood, quantitative (06/26/2014 11:42 AM DRILLING FIELD SPECIALIST) Beta HCG, Quant 13038.0(H) 0.0 - 1.0 mIU/mL 06/26/2014 12:48 PM DRILLING FIELD SPECIALIST [facility] HISTORICAL RESULTS Comment: Weeks of preg ?BHCG [...] for the early detection of . ? 06/26/2014 11:4 2 AM DRILLING FIELD SPECIALIST 06/26/2014 11:46 AM DRILLING FIELD SPECIALIST Shira Gates NP LAB BLOOD ORDERABLES Final Result Performing Organization Address [facility] de Phone Number [facility] HISTORICAL RESULTS * Amylase (06/26/2014 11:42 AM DRILLING FIELD SPECIALIST) Amylase 75 28 - 100 U/L 06/26/2014 12:16 PM DRILLING FIELD SPECIALIST [facility] HISTORICAL RESULTS 06/26/2014 11:4 2 AM DRILLING FIELD SPECIALIST 06/26/2014 11:46 AM DRILLING FIELD SPECIALIST Shira Gates NP LAB BLOOD ORDERABLES Final Result Performing Organization Address [facility] de Phone Number [facility] HISTORICAL RESULTS documented in this encounter Visit Diagnoses Diagnosis Mild hyperemesis gravidarum, antepartum Other current maternal conditions classifiable elsewhere, antepartum Esophageal reflux Encounter for long-term (current) use of other medications documented in this encounter
--- OUTSIDE RECORDS SUMMARY | 2024-06-05 20:41 | XMS_ITS | Encounter Summary ---
Author Organization [facility] Healthcare Address [address] [place] [address] Care Team Providers Care Acetylene Burner Name Role Phone Unavailable Primary Care Provider Unavailabl e Encounter Details Date Type Department Care Team (Late st Contact Info) Description 10/03/2014 8:05 AM CDT Hospital Encounter [facility] Yeimy Baxter, FINANCIAL LEGAL ASSISTANT [address] [place] [address] state, incidental Social History Tobacco Use Types Packs/Day Years Used Date Smoking Tobacco: Never Assessed Comments Unknown Sex and Gender Information Value Date Recorded Sex Assigned at Not on file Legal Sex Female 6:43 PM FLAKE MILLER HELPER Gender Identity Not on file Sexual Orientation Not on file documented as of this encounter Plan of Treatment Not on file documented as of this encounter Procedures Procedure Name Priority Date/Time Associated Diagnosis Comments GLUCOSE TOLERANCE, 3 HOURS Routine 10/03/2014 11:25 AM CDT GLUCOSE TOLERANCE, 2 HOURS Routine 10/03/2014 10:10 AM CDT GLUCOSE TOLERANCE, 1 HOUR Routine 10/03/2014 9:19 AM CDT GLUCOSE TOLERANCE, FASTING Routine 10/03/2014 8:14 AM CDT GTT 100GM 3HR GESTATIONAL DIAGNOSTIC Routine 10/03/2014 8:05 AM CDT documented in this encounter Results * Glucose tolerance, 3 hours (10/03/2014 11:25 AM CDT) Glucaose GTT 3 94 70 - 100 mg/dL 10/03/2014 12:17 PM CDT [facility] RES[facility] Comment:As of May 11 new normal range in use. 10/03/2014 11:2 5 AM CDT 10/03/2014 11:41 AM CDT [facility] - 10/03/2014 12:17 PM CDT GTT3 [id number] GLU3 from [id number]. Yeimy Lennon NP LAB BLOOD ORDERABLES Final R ult Performing Organization Address [facility] Co de Phone Number [facility] HISTORICAL RESULTS * (ABNORMAL) Glucose tolerance, 2 hours (10/03/2014 10:10 AM CDT) Glucose GTT 2 134(H) 70 - 100 mg/dL 10/03/2014 12:06 PM CDT [facility] [employer] HISTORICAL RESULTS Comment:As of May 11 14 new normal range in use. 10/03/2014 10:1 0 AM CDT 10/03/2014 11:39 AM CDT [facility] - 10/03/2014 12:06 PM CDT GTT3 [id number] GLU2 from [id number]. Yeimy Lennon NP LAB BLOOD ORDERABLES Final R esult [facility] HISTORICAL RESULTS * Glucose tolerance, 1 hour (10/03/2014 9:19 AM CDT) Glucose GTT 1 155 120 - 170 mg/dL 10/03/2014 11:25 AM CDT [facility] H[facility] 10/03/2014 9:19 AM CDT 10/03/2014 9:57 AM CDT [facility] HISTORICAL RESULTS - 10/03/2014 11:25 AM CDT GTT3 [id number] GLU1 from [id number]. us Yeimy Lennon NP LAB BLOOD ORDERABLES Final R esult [facility] [employer] HISTORICAL RESULTS * Glucose tolerance, fasting (10/03/2014 8:14 AM CDT) Glucose GTT 0 76 70 - 100 mg/dL 10/03/2014 11:25 AM CDT [employer] HISTORICAL RESULTS Comment:As of May 11 14 new normal range in use. 10/03/2014 8:14 AM CDT 10/03/2014 9:11 AM CDT [facility] HISTORICAL RESULTS - 10/03/2014 11:25 AM CDT GTT3 [id number] F GLU0 from [id number]. us Yeimy Lennon NP LAB BLOOD ORDERABLES Final R esult Performing Organization Address City/[facility]/ZIP Co de Phone Number [employer] HISTORICAL RESULTS * Glucose, 3 hour GTT, 100G gestational (10/03/2014 8:05 AM CDT) GLUCOSE BENSON 3 HR (GESTATIONAL) 10/03/2014 12:17 PM CDT [employer] HISTORICAL RESULTS Comment: TRUTOL REQUIRED: 10 ounces (Test for Gestational Diabetes) 10/03/2014 8:05 AM CDT [facility] HISTORICAL RESULTS - 10/03/2014 12:17 PM CDT us Yeimy Lennon NP LAB BLOOD ORDERABLES Final R esult [facility] [employer] HISTORICAL RESULTS documented in this encounter Visit Diagnoses Diagnosis state, incidental documented in this encounter
--- OUTSIDE RECORDS SUMMARY | 2024-06-05 20:41 | XMS_ITS | Encounter Summary ---
Author Organization [facility] Address [address] [place] [address] Care Team Providers Care Fork Operator Name Role Phone Unavailable Primary Care Provider Unavailabl e Encounter Details Date Type Department Care Team (Latest Contact Info) Description 09/20/2012 3:53 PM CDT - 09/20/2012 7:13 PM CDT Hospital Encounter [facility] ER Mario Snow Syncope and collapse; Dysmenorrhea Social History Tobacco Use Types Packs/Day Years Used Date Smoking Tobacco: Never Assessed Comments Unknown Sex and Gender Information Value Date Recorded Sex Assigned at Not on file Legal Sex Female 6:43 PM CARPENTER [employer]AD[employer] Gender Identity Not on file Sexual Orientation Not on file documented as of this encounter Last Filed Vital Signs Vital Sign Reading Time Taken Comments Blood Pressure 104/61 09/20/2012 3:55 PM CDT Pulse 78 09/20/2012 3:55 PM CDT Temperature 36.4 ??C (97.5 ??F) 09/20/2012 3:55 PM CD T Respiratory Rate - - Oxygen Saturation 100% 09/20/2012 3:55 PM CDT Inhaled Oxygen Concentration - - Weight 63.5 kg (140 lb) 09/20/2012 3:55 PM CDT Height 154.9 cm (5' 1 ) 09/20/2012 3:55 PM CDT Body Mass Index 26.45 09/20/2012 3:55 PM CDT documented in this encounter Plan of Treatment Not on file documented as of this encounter Procedures Procedure Name Priority Date/Time Associated Diagnosis Comments TNI WITH LIPID PANEL Routine 09/20/2012 4:30 PM CDT CBC WITH AUTO DIFFERENTIAL Routine 09/20/2012 4:30 PM CDT TSH Routine 09/20/2012 4:30 PM CDT T4, FREE Routine 09/20/2012 4:30 PM CDT MAGNESIUM Routine 09/20/2012 4:30 PM CDT COMPREHENSIVE METABOLIC PANEL Routine 09/20/2012 4:[address] HEAD WO CONTRAST Routine 09/20/2012 1 2:00 AM CDT documented in this encounter Results * T4, free (09/20/2012 4:30 PM CDT) Thyroxine (T4) 8.6 4.2 - 11.8 ug/dL 09/20/2012 4:30 PM CDT 09/20/2012 4:34 PM CDT Karlo Caballeroman LAB BLOOD ORDERABLES Roberta l Result [facility] HISTORICAL RESULTS * TSH (09/20/2012 4:30 PM CDT) TSH 0.92 0.27 - 4.20 uIU/mL 09/20/2012 4:30 PM CDT 09/20/2012 4:34 PM CDT Karlo Caballeroman LAB BLOOD ORDERABLES Roberta l Result [facility] HISTORICAL RESULTS * Magnesium (09/20/2012 4:30 PM CDT) Magnesium 0.98 0.65 - 1.05 mmol/L Comment:Magnesium sulfate th erapy: 1.25-3.75 mmol/L 09/20/2012 4:30 PM CDT 09/20/2012 4:34 PM CDT Karlo Casarez LAB BLOOD ORDERABLES Roberta l Result Performing Organization Address [facility]/ZIP Co de Phone Number [facility] HISTORICAL RESULTS * TNI with LIPID PANEL (09/20/2012 4:30 PM CDT) Pathologist [facility] Troponin I < 0.300 0.000 - 0.300 ng/mL Comment: Reference using CANDY Chemiluminescence ? Negative: Repeat in 4-6 hours as indicated. Triglycerides 53 0 - 199 mg/dL Comment:12 hr pc highly liz mmended for Triglyceride Cholesterol 153 0 - 199 mg/dL Comment: Borderline: ??200-239 High Risk: ?? >239 HDL Cholesterol 48 40 - 60 mg/dL Comment: Major Risk ?< 40 mg/dL Moderate Risk ?40-60 mg/dL Negative Risk ?? > 60 mg/dL LDL Cholesterol, Calc 94 0 - 130 mg/dL Comment:High Risk > 159 mg/d L 09/20/2012 4:30 PM CDT 09/20/2012 4:34 PM CDT Karlo Casarez LAB BLOOD ORDERABLES Roberta l Result Performing Organization Address [facility]/ZIP Co de Phone Number [facility] HISTORICAL RESULTS * (ABNORMAL) Comprehensive metabolic panel (09/20/2012 4:30 PM CDT) [facility] Sodium 138 135 - 145 mmol/L Potassium 3.5 3.3 - 5.1 mmol/L Chloride 103 96 - 108 mmol/L Carbon Dioxide 24 22 - 32 mmol/L Anion Gap 11 Glucose 132(H) 70 - 110 mg/dL BUN 10 6 - 20 mg/dL Creatinine 0.7 0.5 - 1.1 mg/dL Kidney Disease Stage [...] Kidney failure or on dialysis @ Calcium 2.30 2.15 - 2.55 mmol/L Total Protein 7.3 6.4 - 8.4 g/dL Albumin 4.3 3.5 - 5.2 g/dL Globulin 3.0 2.3 - 3.5 gm/dL Albumin/Globulin Ratio 1.4 1.1 - 1.8 Total Bilirubin 0.2 0.0 - 1.2 mg/dL AST 15 0 - 32 U/L ALT 12 0 - 31 U/L Alkaline Phosphatase 51 35 - 104 U/L 09/20/2012 4:30 PM CDT 09/20/2012 4:34 PM CDT Karlo Casarez LAB BLOOD ORDERABLES Roberta l Result [facility] HISTORICAL RESULTS * CBC with auto differential (09/20/2012 4:30 PM CDT) WBC 5.6 4.6 - 10.2 x10 3/ul RBC 4.49 3.76 - 4.80 x10 6/ul Hemoglobin 12.8 11.0 - 15.0 g/dl Hct 38.9 33.0 - 43.0 % MCV 86.6 80.0 - 97.0 fl MCH 28.5 27.0 - 31.2 pg MCHC 32.9 31.8 - 35.4 g/dl RDW 12.3 11.6 - 14.8 % Plt Count 291 124 - 400 x10 3/ul MPV 9.8 7.4 - 10.4 fl Differential Method AUTOMATED DIFF --------- -- Neut % 73.0 37.0 - 85.0 % Immature Gran % 0.2 0.0 - 3.0 % Lymph % 14.7 5.0 - 45.0 % [place] % 8.6 3.0 - 15.0 % Eos % 3.1 0.0 - 7.0 % Baso % 0.4 0.0 - 2.0 % ABSOLUTE COUNTS ABSOLUTE COUNTS --------- -- Absolute Neuts (auto) 4.1 1.7 - 8.7 x10 3/ul Immature Gran # 0.0 0.0 - 0.3 x10 3/ul Absolute Lymphs (auto) 0.8 0.2 - 4.6 x10 3/ul Absolute Monos (auto) 0.5 0.1 - 1.5 x10 3/ul Absolute Eos (auto) 0.2 0.0 - 0.7 x10 3/ul Absolute Basos (auto) 0.0 0.0 - 0.2 x10 3/ul 09/20/2012 4:30 PM CDT 09/20/2012 4:34 PM CDT Karlo Caballeroman LAB BLOOD ORDERABLES Roberta l Result [facility] HISTORICAL RESULTS * CT Head WO Contrast (09/20/2012 12:00 AM CDT) Anatomical Region Laterality Modality Head and Neck N/A Computed Tomogra phy 09/20/2012 Impressions 09/20/2012 4:59 PM CDT ??NO CT EVIDENCE OF ACUTE INTRACRANIAL PROCESS. THIS IS AN ELECTRONICALLY VERIFIED REPORT 09/20/2012 4:56 PM: ??Jose Daniel M.D. Jose Daniel M.D. NC:wil 04:56 PM 04:56 PM [EOD] Narrative 09/20/2012 4:59 PM CDT EXAMINATION: ??CT SCAN OF THE ??BRAIN HISTORY: Dizziness and syncope TECHNIQUE: Noncontrast axial images obtained. COMPARISON: ??12/10/07 FINDINGS: ??The CT images demonstrate no evidence of ??any mass effect. There is no midline shift of note. ??No CT scan evidence of acute intracranial hemorrhage is noted. The visible paranasal sinuses are clear without significant mucoperiosteal thickening or air fluid levels. The calvarium is intact with no evidence for skull fracture. ??The ventricles are normal in size and configuration. Procedure Note Provider, MD Barry - 10/24/2020 EXAMINATION: CT SCAN OF THE BRAIN HISTORY: Dizziness and syncope TECHNIQUE: Noncontrast axial images obtained. COMPARISON: 12/10/07 FINDINGS: The CT images demonstrate no evidence of any mass effect.There is no midline shift of note. No CT scan evidence of acute intracranial hemorrhage is noted. The visible paranasal sinuses are clear without significant mucoperiosteal thickening or air fluid levels. The calvariumis intact with no evidence for skull fracture. The ventricles are normal insize and configuration. IMPRESSION: NO CT EVIDENCE OF ACUTE INTRACRANIAL PROCESS. THIS IS AN ELECTRONICALLY VERIFIED REPORT 09/20/2012 4:56 PM: Jose Daniel M.D. Jose Daniel M.D. NC:wil 04:56 PM 04:56 PM [EOD] Karlo Casarez [facility]ED[place] Final R esult documented in this encounter Visit Diagnoses Diagnosis Syncope and collapse Dysmenorrhea documented in this encounter
--- OUTSIDE RECORDS SUMMARY | 2024-06-05 20:41 | XMS_ITS | Encounter Summary ---
Author Organization [facility] Healthcare Address [address] [place] [address] Care Team Providers Care Artillery Maintenance Supervisor Name Role Phone Unavailable Primary Care Provider Unavailabl e Encounter Details Date Type Department Care Team (Late st Contact Info) Description 05/03/2014 4:04 PM TREE FRUIT AND NUT FARMING SUPERVISOR - 05/03/2014 6:13 PM TREE FRUIT AND NUT FARMING SUPERVISOR Hospital Encounter [facility] Delmar London MD [address] [place] [address] Complication of , antepartum; Other acute pain; Low back pain; Asthma Social History Tobacco Use Types Packs/Day Years Used Date Smoking Tobacco: Never Assessed Comments Unknown Sex and Gender Information Value Date Recorded Sex Assigned at Not on file Legal Sex Female 6:43 PM TREE FRUIT AND NUT FARMING SUPERVISOR Gender Identity Not on file Sexual Orientation Not on file documented as of this encounter Last Filed Vital Signs Vital Sign Reading Time Taken Comments Blood Pressure 127/59 05/03/2014 4:15 PM TREE FRUIT AND NUT FARMING SUPERVISOR Pulse 97 05/03/2014 4:15 PM TREE FRUIT AND NUT FARMING SUPERVISOR Temperature 36.7 ??C (98 ??F) 05/03/2014 4:15 PM TREE FRUIT AND NUT FARMING SUPERVISOR Respiratory Rate - - Oxygen Saturation 100% 05/03/2014 4:15 PM TREE FRUIT AND NUT FARMING SUPERVISOR Inhaled Oxygen Concentration - - Weight 67.1 kg (148 lb) 05/03/2014 4:15 PM TREE FRUIT AND NUT FARMING SUPERVISOR Height 157.5 cm (5' 2 ) 05/03/2014 4:15 PM TREE FRUIT AND NUT FARMING SUPERVISOR Body Mass Index 27.07 05/03/2014 4:15 PM TREE FRUIT AND NUT FARMING SUPERVISOR documented in this encounter Plan of Treatment Not on file documented as of this encounter Procedures Procedure Name Priority Date/Time Associated Diagnosis Comments INFLUENZA A/B ANTIGENS, RAPID Routine 05/03/2014 5:00 PM TREE FRUIT AND NUT FARMING SUPERVISOR URINALYSIS AND REFLEX TO MICROSCOPIC AND CULTURE Routine 05/03/2014 4:25 PM TREE FRUIT AND NUT FARMING SUPERVISOR documented in this encounter Results * Influenza A/B antigens, rapid (05/03/2014 5:00 PM TREE FRUIT AND NUT FARMING SUPERVISOR) [facility] Influenza A Ag NEGATIVE NEGATIVE 05/03/2014 5:39 PM TREE FRUIT AND NUT FARMING SUPERVISOR [facility] HISTORICAL RESULTS Influenza B Ag NEGATIVE NEGATIVE 05/03/2014 5:39 PM TREE FRUIT AND NUT FARMING SUPERVISOR [facility] HISTORICAL RESULTS Comment: A NEGATIVE RESULT DOES NOT ELIMINATE THE POSSIBILITY OF AN ?? INFLUENZA A OR B INFECTION. ??INADEQUATE SPECIMEN COLLECTION ?? OR IMPROPER SAMPLE HANDLING/TRANSPORT, OR LOW LEVELS OF ?? VIRAL SHEDDING MAY YIELD A FALSE NEGATIVE RESULT. 05/03/2014 5:00 PM TREE FRUIT AND NUT FARMING SUPERVISOR 05/03/2014 5:08 PM TREE FRUIT AND NUT FARMING SUPERVISOR Narrative [facility] HISTORICAL RESULTS - 05/03/2014 5:39 PM TREE FRUIT AND NUT FARMING SUPERVISOR Collected By ANB ?? [phone] Delmar Knowles MD LAB MICROBIOLOGY - GENERAL ORDERABLES Final Result [facility] HISTORICAL RESULTS * (ABNORMAL) Urinalysis reflex to microscopic and culture (05/03/2014 4:25 PM TREE FRUIT AND NUT FARMING SUPERVISOR) [facility] Ur Collection Type CLEAN CATCH 05/03/2014 4:41 PM TREE FRUIT AND NUT FARMING SUPERVISOR [facility] HISTORICAL RESULTS Ur Culture Indicated? C&S NOT INDICATED 05/03/2014 4:41 PM TREE FRUIT AND NUT FARMING SUPERVISOR [facility] HISTORICAL RESULTS Urine Color YELLOW YELLOW Urine Clarity HAZY CLEAR Urine Glucose (UA) NORMAL NORMAL mg/dL 05/03/2014 4:41 PM TREE FRUIT AND NUT FARMING SUPERVISOR [facility] HISTORICAL RESULTS Urine Bilirubin NEGATIVE NEGATIVE mg/dl Urine Ketones NEGATIVE NEGATIVE mg/dL Ur Specific [place] 1.027(H) 1.005 - 1.025 Urine Blood NEGATIVE NEGATIVE mg/dl Urine pH 6.5 5.0 - 8.0 Urine Protein 10(H) NEGATIVE mg/dL Urine Urobilinogen 2(H) NORMAL mg/dL Urine Nitrite NEGATIVE NEGATIVE Ur Leukocyte Esterase NEGATIVE NEGATIVE Shaylee/ul Ur Microscopic Review Indicated or Ordered Urine RBC 1 0 - 2 /HPF Urine WBC 1 0 - 2 /HPF Urine Bacteria Rare /HPF Urine Mucus Rare /LPF Ur Squamous Epith Cells Mod /HPF 05/03/2014 4:25 PM TREE FRUIT AND NUT FARMING SUPERVISOR 05/03/2014 4:34 PM [facility] Narrative [facility] HISTORICAL RESULTS - 05/03/2014 4:41 PM TREE FRUIT AND NUT FARMING SUPERVISOR Collected By kjt ?? [phone] ?? us Historical Provider LAB MICROBIOLOGY - GENERA L ORDERABLES Final Result [facility] HISTORICAL RESULTS documented in this encounter Visit Diagnoses Diagnosis Complication of , antepartum Unspecified complication of , antepartum Other acute pain Low back pain Lumbago Asthma Unspecified asthma documented in this encounter
--- OUTSIDE RECORDS SUMMARY | 2024-06-05 20:41 | XMS_ITS | Encounter Summary ---
Author Organization [facility] Healthcare Address [address] [place] [address] Care Team Providers Care Director Of Social Work Name Role Phone Unavailable Primary Care Provider Unavailabl e Encounter Details Date Type Department Care Team (Latest Contact Info) Description 05/30/2014 9:40 AM GENETIC SUPERVISOR - 05/30/2014 10:22 AM GENETIC SUPERVISOR Hospital Encounter [facility] ER Mild hyperemesis gravidarum, antepartum Social History Tobacco Use Types Packs/Day Years Used Date Smoking Tobacco: Never Assessed Comments Unknown Sex and Gender Information Value Date Recorded Sex Assigned at Not on file Legal Sex Female 6:43 PM GENETIC SUPERVISOR Gender Identity Not on file Sexual Orientation Not on file documented as of this encounter Last Filed Vital Signs Vital Sign Reading Time Taken Comments Blood Pressure 115/79 05/30/2014 9:43 AM GENETIC SUPERVISOR Pulse 99 05/30/2014 9:43 AM GENETIC SUPERVISOR Temperature 36.7 ??C (98.1 ??F) 05/30/2014 9:43 AM CS T Respiratory Rate - - Oxygen Saturation 100% 05/30/2014 9:43 AM GENETIC SUPERVISOR Inhaled Oxygen Concentration - - Weight 68 kg (150 lb) 05/30/2014 9:43 AM GENETIC SUPERVISOR Height 157.5 cm (5' 2 ) 05/30/2014 9:43 AM GENETIC SUPERVISOR Body Mass Index 27.44 05/30/2014 9:43 AM GENETIC SUPERVISOR documented in this encounter Plan of Treatment Not on file documented as of this encounter Visit Diagnoses Diagnosis Mild hyperemesis gravidarum, antepartum documented in this encounter
--- OUTSIDE RECORDS SUMMARY | 2024-06-05 20:41 | XMS_ITS | Encounter Summary ---
Author Organization [facility] Healthcare Address [address] [place] [address] Care Team Providers Care President And Chief Executive Officer Name Role Phone Unavailable Primary Care Provider Unavailabl e Encounter Details Date Type Department Care Team (Late st Contact Info) Description 09/29/2014 3:00 PM CDT Hospital Encounter [facility] Yeimy Baxter, DIRECTOR [address] [place], [place] [id number] Infection of genitourinary tract antepartum Social History Tobacco Use Types Packs/Day Years Used Date Smoking Tobacco: Never Assessed Comments Unknown Sex and Gender Information Value Date Recorded Sex Assigned at Not on file Legal Sex Female 6:43 PM CIRCUS ARTIST Gender Identity Not on file Sexual Orientation Not on file documented as of this encounter Plan of Treatment Not on file documented as of this encounter Visit Diagnoses Diagnosis Infection of genitourinary tract antepartum Infections of genitourinary tract antepartum documented in this encounter
--- OUTSIDE RECORDS SUMMARY | 2024-06-05 20:41 | XMS_ITS | Encounter Summary ---
Author Organization [facility] Healthcare Address [address] [place] [address] Care Team Providers Care Lead Blender Name Role Phone Unavailable Primary Care Provider Unavailabl e Encounter Details Date Type Department Care Team (Latest Contact Info) Description 10/11/2014 9:55 PM CDT - 10/11/2014 11:15 PM CDT Hospital Encounter [facility] Terrance Ramirez MD [address] [place] [address] Other current maternal conditions classifiable elsewhere, antepartum Social History Tobacco Use Types Packs/Day Years Used Date Smoking Tobacco: Never Assessed Comments Unknown Sex and Gender Information Value Date Recorded Sex Assigned at Not on file Legal Sex Female 6:43 PM ACID CUTTER Gender Identity Not on file Sexual Orientation Not on file documented as of this encounter Last Filed Vital Signs Vital Sign Reading Time Taken Comments Blood Pressure 114/68 10/11/2014 10:13 PM CDT Pulse 79 10/11/2014 10:13 PM CDT Temperature 36.3 ??C (97.4 ??F) 10/11/2014 10:13 PM C DT Respiratory Rate - - Oxygen Saturation - - Inhaled Oxygen Concentration - - Weight 83.5 kg (184 lb) 10/11/2014 10:13 PM CDT Height 157.5 cm (5' 2 ) 10/11/2014 10:13 PM CDT Body Mass Index 33.65 10/11/2014 10:13 PM CDT documented in this encounter Plan of Treatment Not on file documented as of this encounter Procedures Procedure Name Priority Date/Time Associated Diagnosis Comments GROUP B STREPTOCOCCUS SCREEN PCR GEN LAB Routine 10/11/2014 10:30 PM CDT URINALYSIS AND REFLEX TO MICROSCOPIC AND CULTURE Routine 10/11/2014 10:30 PM CDT DRUGS OF ABUSE SCREEN, URINE WITHOUT CONFIRMATION Routine 10/11/2014 10:30 PM CDT documented in this encounter Results * Group B streptococcus PCR (10/11/2014 10:30 PM CDT) Strep B Ag POSITIVE NEGATIVE Comment: GROUP B STREPTOCOCCI ARE SUSCEPTIBLE TO AMPICILLIN, ?? PENICILLIN, AND CEFAZOLIN, BUT MAY BE RESISTANT TO ?? ERYTHROMYCIN AND CLINDAMYCIN. ?? FOR PENICILLIN ALLERGIC PATIENTS,PLEASE CALL MICROBIOLOGY ?? AT [phone] TO ADD SUSCEPTIBILITY TESTING. Strep B culture NOT APPLICABLE 10/11/2014 10:3 0 PM CDT 10/11/2014 10:56 PM CDT us Terrance Ramierz MD LAB MICROBIOLOGY - GENERAL ORDERABLES Final Result [facility] HISTORICAL RESULTS * Drug Screen, Urine (10/11/2014 10:30 PM CDT) Ur Amphetamine Screen NEGATIVE NEGATIVE Comment: Cutoff Limit: ??1000 ng/mL Note: ??Positive results from this drug screen are unconfirmed. ??Unconfirmed screening results should not be used for non-medical purposes. Ur Barbiturates Screen NEGATIVE NEGATIVE Comment:Cutoff limit: 200 ng /mL U Benzodiazepines Scrn NEGATIVE NEGATIVE Comment:Cutoff limit: 300 ng /mL U Cannabinoids Screen NEGATIVE NEGATIVE Comment:Cutoff Limit: 50 ng/ mL U Cocaine Metab Screen NEGATIVE NEGATIVE Comment:Cutoff limit: 300 ng /mL Urine Opiates Screen NEGATIVE NEGATIVE Comment:Cutoff Limit: 300 ng /mL Urine Creatinine/NIYAH 47.0 mg/dL Comment:If Creatinine is < 4 0 mg/dL, recollection is suggested. 10/11/2014 10:3 0 PM CDT 10/11/2014 10:46 PM T Narrative [facility] HISTORICAL RESULTS - 10/11/2014 11:25 PM CDT Collected By ka Terrance Panchito Ramirez MD LAB URINE ORDERABLES Final Result [facility] HISTORICAL RESULTS * (ABNORMAL) Urinalysis reflex to microscopic and culture (10/11/2014 10:30 PM CDT) Ur Collection Type CLEAN CATCH Ur Culture Indicated? C&S NOT INDICATED Urine Color COLORLESS YELLOW Urine Clarity CLEAR CLEAR Urine Glucose (UA) NORMAL NORMAL mg/dL Urine Bilirubin NEGATIVE NEGATIVE mg/dl Urine Ketones NEGATIVE NEGATIVE mg/dL Ur Specific [place] 1.005 1.005 - 1.025 Urine Blood NEGATIVE NEGATIVE mg/dl 10/11/2014 10:56 PM [facility] HISTORICAL RESULTS Urine pH 6.5 5.0 - 8.0 Urine Protein NEGATIVE NEGATIVE mg/dL Urine Urobilinogen NORMAL NORMAL mg/dL Urine Nitrite NEGATIVE NEGATIVE Ur Leukocyte Esterase 250(H) NEGATIVE Shaylee/ul Ur Microscopic Review Indicated or Ordered Urine RBC <1 0 - 2 /HPF Urine WBC 1 0 - 2 /HPF Ur Squamous Epith Cells Rare /HPF 10/11/2014 10:3 0 PM CDT 10/11/2014 10:46 PM CDT Narrative [facility] HISTORICAL RESULTS - 10/11/2014 10:56 PM CDT Collected By ka us Terrance Ramirez MD LAB MICROBIOLOGY - GENERAL ORDERABLES Final Result [facility] HISTORICAL RESULTS documented in this encounter Visit Diagnoses Diagnosis Other current maternal conditions classifiable elsewhere, antepartum documented in this encounter
--- OUTSIDE RECORDS SUMMARY | 2024-06-05 20:41 | XMS_ITS | Encounter Summary ---
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 Unavailable Primary Care Provider Unavailabl e Encounter Details Date Type Department Care Team (Latest Contact Info) Description 06/13/2014 10:03 AM DIRECTOR [employer]OPMENT - 06/13/2014 1:00 PM DIRECTOR [employer]ELOPMENT Hospital Encounter [facility] [place] [address] [place] [id number] Intrauterine affecting management of mother, antepartum Social History Tobacco Use Types Packs/Day Years Used Date Smoking Tobacco: Never Assessed Comments Unknown Sex and Gender Information Value Date Recorded Sex Assigned at Not on file Legal Sex Female 6:43 PM DIRECTOR [employer]ELOPMENT Gender Identity Not on file Sexual Orientation Not on file documented as of this encounter Last Filed Vital Signs Vital Sign Reading Time Taken Comments Blood Pressure 124/81 06/13/2014 10:26 AM DIRECTOR [employer]OP[employer] Pulse 116 06/13/2014 10:26 AM DIRECTOR [employer]ELOP[employer] Temperature 36.7 ??C (98 ??F) 06/13/2014 10:26 AM DIRECTOR [employer]OP[employer] Respiratory Rate - - Oxygen Saturation 99% 06/13/2014 10:26 AM DIRECTOR [employer]ELOPMENT Inhaled Oxygen Concentration - - Weight 68 kg (150 lb) 06/13/2014 10:26 AM DIRECTOR [employer]ELOPMENT Height 157.5 cm (5' 2 ) 06/13/2014 10:26 AM DIRECTOR [employer]ELOPMENT Body Mass Index 27.44 06/13/2014 10:26 AM DIRECTOR [employer]OP[employer] documented in this encounter Plan of Treatment Not on file documented as of this encounter Procedures Procedure Name Priority Date/Time Associated Diagnosis Comments CBC WITH AUTO DIFFERENTIAL Routine 06/13/2014 10:57 AM DIRECTOR [employer]OPMENT HCG, BLOOD, QUANTITATIVE Routine 06/13/2014 10:57 AM [employer]OR [employer]OPMENT COMPREHENSIVE METABOLIC PANEL Routine 06/13/2014 10:57 AM DIRECTOR [employer]OP[employer] URINALYSIS AND REFLEX TO MICROSCOPIC AND CULTURE Routine 06/13/2014 10:30 AM DIRECTOR [employer]OP[employer] US PELVIS COMPLETE Routine 06/13/2014 12 :00 AM DIRECTOR [employer]OPMENT documented in this encounter Results * (ABNORMAL) Comprehensive metabolic panel (06/13/2014 10:57 AM DIRECTOR [employer]ELOPMENT) Sodium 137 135 - 145 mmol/L 06/13/2014 11:42 AM [facility] HISTORICAL RESULTS Comment: Due to a Calibration adjustment, results may vary by +2 mmol/l as compared to results obtained prior to ?? May 11, 2014 Potassium 3.7 3.3 - 5.1 mmol/L 06/13/2014 11:42 AM [facility] HISTORICAL RESULTS Comment: Due to a Calibration adjustment, results may vary by +0.2 mmol/l as compared to results obtained prior to May 11, 2014 Chloride 99 96 - 108 mmol/L 06/13/2014 11:42 AM [facility] HISTORICAL RESULTS Carbon Dioxide 25 22 - 32 mmol/L 06/13/2014 11:42 AM [facility] HISTORICAL RESULTS Anion Gap 13 7 - 16 06/13/2014 11:42 AM [facility] HISTORICAL RESULTS Glucose 78 70 - 100 mg/dL 06/13/2014 11:42 AM [facility] HISTORICAL RESULTS Comment:As of May 11 14 new normal range in use. BUN 11 6 - 20 mg/dL 06/13/2014 11:42 AM [facility] HISTORICAL RESULTS Creatinine 0.5 0.5 - 1.1 mg/dL 06/13/2014 11:42 AM [facility] HISTORICAL RESULTS Kidney Disease Stage > 90 mL/MIN 06/13/2014 11:42 AM [employer] [facility] HISTORICAL RESULTS Comment: NOTE; ??The GFR is [...] Kidney failure or on dialysis @ Calcium 9.7 8.6 - 10.0 mg/dL 06/13/2014 11:42 AM [facility] HISTORICAL RESULTS Total Protein 7.8 6.4 - 8.3 g/dL 06/13/2014 11:42 AM [facility] HISTORICAL RESULTS Albumin 4.2 3.5 - 5.2 g/dL 06/13/2014 11:42 AM [facility] HISTORICAL RESULTS Globulin 3.6(H) 2.3 - 3.5 gm/dL 06/13/2014 11:42 AM [employer] [facility] HISTORICAL RESULTS Albumin/Globulin Ratio 1.2 1.1 - 1.8 06/13/2014 11:42 AM [facility] HISTORICAL RESULTS Total Bilirubin < 0.2 0.0 - 1.2 mg/dL 06/13/2014 11:42 AM [employer] [facility] HISTORICAL RESULTS AST 14 0 - 32 U/L 06/13/2014 11:42 AM [facility] HISTORICAL RESULTS ALT 12 0 - 33 U/L 06/13/2014 11:42 AM [facility] HISTORICAL RESULTS Alkaline Phosphatase 50 35 - 104 U/L 06/13/2014 10:5 7 AM DIRECTOR [employer]OPMENT 06/13/2014 11:08 AM DIRECTOR [employer]ELOPMENT us Historical Provider LAB BLOOD ORDERABLES Roberta l Result [facility] HISTORICAL RESULTS * CBC with auto differential (06/13/2014 10:57 AM DIRECTOR [employer]OP[employer]) WBC 7.3 4.6 - 10.2 x10 3/ul RBC 4.50 3.76 - 4.80 x10 6/ul Hemoglobin 13.0 11.0 - 15.0 g/dl Hct 39.2 33.0 - 43.0 % MCV 87.1 80.0 - 97.0 fl MCH 28.9 27.0 - 31.2 pg MCHC 33.2 31.8 - 35.4 g/dl 06/13/2014 11:16 AM [email or web address] RDW 12.1 11.6 - 14.8 % Plt Count 285 124 - 400 x10 3/ul 06/13/2014 11:16 AM [facility] HISTORICAL RESULTS MPV 9.7 7.4 - 10.4 fl Differential Method AUTOMATED DIFF --------- -- 06/13/2014 11:16 AM [facility] HISTORICAL RESULTS Neut % 65.7 37.0 - 85.0 % 06/13/2014 11:16 AM [facility] [employer] [facility] HISTOR[facility] RESULTS Immature Gran % 0.3 0.0 - 3.0 % Lymph % 19.7 5.0 - 45.0 % [place] % 8.9 3.0 - 15.0 % Eos % 4.9 0.0 - 7.0 % Baso % 0.5 0.0 - 2.0 % ABSOLUTE COUNTS ABSOLUTE COUNTS --------- -- Absolute Neuts (auto) 4.8 1.7 - 8.7 x10 3/ul Immature Gran # 0.0 0.0 - 0.3 x10 3/ul Absolute Lymphs (auto) 1.4 0.2 - 4.6 x10 3/ul Absolute Monos (auto) 0.7 0.1 - 1.5 x10 3/ul Absolute Eos (auto) 0.4 0.0 - 0.7 x10 3/ul Absolute Basos (auto) 0.0 0.0 - 0.2 x10 3/ul 06/13/2014 10:5 7 AM DIRECTOR [employer]OPMENT 06/13/2014 11:08 AM [facility] us Historical Provider LAB BLOOD ORDERABLES Roberta adorno Result [facility] HISTORICAL RESULTS * (ABNORMAL) hCG, blood, quantitative (06/13/2014 10:57 AM DIRECTOR [employer]OP[employer]) Beta HCG, Quant 05087.0(H) 0.0 - 1.0 mIU/mL 06/13/2014 12:12 PM DIRECTOR [employer]ELOPMENT [facility] HISTORICAL RESULTS Comment: Weeks of preg ?BHCG [...] for the early detection of . ? 06/13/2014 10:5 7 AM DIRECTOR [employer]OPMENT 06/13/2014 11:08 AM DIRECT[employer] us Historical Provider MD LAB BLOOD ORDERABLES Roberta tila Result [facility] HISTORICAL RESULTS * (ABNORMAL) Urinalysis reflex to microscopic and culture (06/13/2014 10:30 AM [facility]) Ur Collection Type CLEAN CATCH Ur Culture Indicated? C&S NOT INDICATED Urine Color YELLOW YELLOW Urine Clarity CLOUDY CLEAR Urine Glucose (UA) 300(H) NORMAL mg/dL Urine Bilirubin NEGATIVE NEGATIVE mg/dl Urine Ketones NEGATIVE NEGATIVE mg/dL Ur Specific [place] 1.023 1.005 - 1.025 Urine Blood NEGATIVE NEGATIVE mg/dl Urine pH 8.0 5.0 - 8.0 Urine Protein 30(H) NEGATIVE mg/dL Urine Urobilinogen NORMAL NORMAL mg/dL Urine Nitrite NEGATIVE NEGATIVE Ur Leukocyte Esterase 250(H) NEGATIVE Shaylee/ul Ur Microscopic Review Indicated or Ordered Urine RBC 4 0 - 2 /HPF Urine WBC 1 0 - 2 /HPF Urine Mucus Rare /LPF Ur Squamous Epith Cells Mod /HPF 06/13/2014 11:25 AM DIRECTOR [employer]ELOPMENT [facility] HISTORICAL RESULTS Amorphous Crystals Mod /HPF 06/13/2014 11:25 AM DIRECTOR [employer]ELOPMENT [facility] HISTORICAL RESULTS 06/13/2014 10:3 0 AM DIRECTOR [employer]ELOPMENT 06/13/2014 11:15 AM DIRECTOR [employer]ELOPMENT Narrative [facility] HISTORICAL RESULTS - 06/13/2014 11:25 AM DIRECTOR [employer]OPMENT Collected By JESSICA ?? 185 ?? us Historical Provider LAB MICROBIOLOGY - GENERA L ORDERABLES Final Result [facility] HISTORICAL RESULTS * US Pelvis Complete (06/13/2014 12:00 AM DIRECTOR [employer]OP[employer]) Anatomical Region Laterality Modality Pelvis N/A Ultrasound 06/13/2014 Narrative 06/13/2014 12:49 PM DIRECTOR [employer]OPMENT First trimester OB ultrasound HISTORY: ??Right lower quadrant pain Transabdominal technique was performed. ?? Findings: The uterus measures 13.2 x 10.1 x 7 cm Right ovary measures 4.8 x 2.5 x 1.9 cm.. ??Left ovary 2.5 x 143 x 1.5 cm. There is a viable intrauterine measuring 11weeks and 5 days. The heart rate is 156 beats per minute. There is no complication present. Impression Viable intrauterine measuring approximate 11 weeks and 5-day THIS IS AN ELECTRONICALLY VERIFIED REPORT 06/13/2014 12:46 PM: ??Jose Daniel M.D. Jose Daniel M.D. NC:nc 12:46 PM 12:46 PM [facility] [EOD] Procedure Note Provider, Barry, - 10/24/2020 First trimester OB ultrasound HISTORY: Right lower quadrant pain Transabdominal technique was performed. Findings: The uterus measures 13.2 x 10.1 x 7 cm Right ovary measures 4.8 x 2.5 x 1.9 cm.. Left ovary 2.5 x 143 x 1.5cm. There is a viable intrauterine measuring 11weeks and 5 days. The heart rate is 156 beats per minute. There is no complication present. Impression Viable intrauterine measuring approximate 11 weeks and 5-day THIS IS AN ELECTRONICALLY VERIFIED REPORT 06/13/2014 12:46 PM: Jose Daniel M.D. Jose Daniel M.D. NC:nc 12:46 PM 12:46 PM [facility] [EOD] us Historical Provider MD VASQUEZ US PROCEDURES Final R esult documented in this encounter Visit Diagnoses Diagnosis Intrauterine affecting management of mother, antepartum documented in this encounter
--- OUTSIDE RECORDS SUMMARY | 2024-06-05 20:41 | XMS_ITS | Encounter Summary ---
Author Organization [facility] Healthcare Address [address] [place] [address] Care Team Providers Care Senior Associate Name Role Phone Unavailable Primary Care Provider Unavailabl e Encounter Details Date Type Department Care Team (Late st Contact Info) Description 12/13/2014 12:06 AM CDT - 12/17/2014 2:15 PM CDT Hospital Encounter [facility] IP Tanika Mortensen Fabiana, DO [address] [place] [address] Malposition or malpresentation of fetus, delivered; Maternal anemia, with delivery; Acute posthemorrhagic anemia; Delivery outcome of single liveborn infant Social History Tobacco Use Types Packs/Day Years Used Date Smoking Tobacco: Never Assessed Comments Unknown Sex and Gender Information Value Date Recorded Sex Assigned at Not on file 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 Gender Identity Not on file Sexual Orientation Not on file documented as of this encounter Last Filed Vital Signs Vital Sign Reading Time Taken Comments Blood Pressure 115/66 12/13/2014 8:19 PM CDT Pulse 85 12/13/2014 8:19 PM CDT Temperature 36.6 ??C (97.8 ??F) 12/13/2014 8:19 PM CD T Respiratory Rate - - Oxygen Saturation 98% 12/13/2014 8:19 PM CDT Inhaled Oxygen Concentration - - Weight 88 kg (194 lb) 12/13/2014 8:19 PM CDT Height 157.5 cm (5' 2 ) 12/13/2014 8:19 PM CDT Body Mass Index 35.48 12/13/2014 8:19 PM CDT documented in this encounter Plan of Treatment Not on file documented as of this encounter Procedures Procedure Name Priority Date/Time Associated Diagnosis Comments CBC WITH AUTO DIFFERENTIAL Routine 12/15/2014 5:38 AM CDT CBC WITH AUTO DIFFERENTIAL Routine 12/13/2014 12:47 AM CDT RPR Routine 12/13/2014 12:47 AM CDT documented in this encounter Results * (ABNORMAL) CBC with auto differential (12/15/2014 5:38 AM CDT) WBC 8.9 4.6 - 10.2 x10 3/ul 12/15/2014 6:17 AM CDT [facility] HISTORICAL RESULTS Comment:Results Reviewed RBC 3.02(L) 3.76 - 4.80 x10 6/ul 12/15/2014 6:17 AM CDT [facility] HISTORICAL RESULTS MCV 88.4 80.0 - 97.0 fl 12/15/2014 6:17 AM CDT [facility] HISTORICAL RESULTS MCH 27.8 27.0 - 31.2 pg 12/15/2014 6:17 AM CDT [facility] HISTORICAL RESULTS MCHC 31.5(L) 31.8 - 35.4 g/dl 12/15/2014 6:17 AM CDT [facility] HISTORICAL RESULTS RDW 14.7 11.6 - 14.8 % 12/15/2014 6:17 AM CDT [facility] HISTORICAL RESULTS Plt Count 194 124 - 400 x10 3/ul 12/15/2014 6:17 AM CDT [facility] HISTORICAL RESULTS MPV 9.9 7.4 - 10.4 fl 12/15/2014 6:17 AM CDT [facility] HISTORICAL RESULTS Differential Method AUTOMATED DIFF --------- -- 12/15/2014 6:17 AM CDT [facility] HISTORICAL RESULTS Neut % 74.2 37.0 - 85.0 % 12/15/2014 6:17 AM CDT [facility] HISTORICAL RESULTS Immature Gran % 0.5 0.0 - 3.0 % 12/15/2014 6:17 AM T [facility] HISTORICAL RESULTS Lymph % 14.4 5.0 - 45.0 % [place] % 9.5 3.0 - 15.0 % Eos % 1.1 0.0 - 7.0 % 12/15/2014 6:17 AM T [facility] HISTORICAL RESULTS Baso % 0.3 0.0 - 2.0 % ABSOLUTE COUNTS ABSOLUTE COUNTS --------- -- Absolute Neuts (auto) 6.6 1.7 - 8.7 x10 3/ul Immature Gran # 0.0 0.0 - 0.3 x10 3/ul Absolute Lymphs (auto) 1.3 0.2 - 4.6 x10 3/ul Absolute Monos (auto) 0.8 0.1 - 1.5 x10 3/ul Absolute Eos (auto) 0.1 0.0 - 0.7 x10 3/ul Absolute Basos (auto) 0.0 0.0 - 0.2 x10 3/ul 12/15/2014 5:38 AM CDT 12/15/2014 6:10 AM CDT us Terrance Ramirez MD LAB BLOOD ORDERABLES Final Result [facility] HISTORICAL RESULTS * RPR, serum (12/13/2014 12:47 AM CDT) RPR NONREACTIVE NONREACTIVE 12/13/2014 11:27 AM CDT [facility] HISTORICAL RESULTS 12/13/2014 12:4 7 AM CDT 12/13/2014 1:02 AM CDT Tanika Mortensen DO LAB MICROBIOLOGY - GEN ERAL ORDERABLES Final Result [facility] HISTORICAL RESULTS * (ABNORMAL) CBC with auto differential (12/13/2014 12:47 AM CDT) WBC 5.2 4.6 - 10.2 x10 3/ul 12/13/2014 1:10 AM CDT [facility] HISTORICAL RESULTS RBC 3.68(L) 3.76 - 4.80 x10 6/ul 12/13/2014 1:10 AM CDT [facility] HISTORICAL RESULTS Hemoglobin 10.4(L) 11.0 - 15.0 g/dl 12/13/2014 1:10 AM T [facility] HISTORICAL RESULTS Hct 31.9(L) 33.0 - 43.0 % 12/13/2014 1:10 AM CDT [facility] HISTORICAL RESULTS MCV 86.7 80.0 - 97.0 fl 12/13/2014 1:10 AM CDT [facility] HISTORICAL RESULTS MCH 28.3 27.0 - 31.2 pg 12/13/2014 1:10 AM CDT [facility] HISTORICAL RESULTS MCHC 32.6 31.8 - 35.4 g/dl 12/13/2014 1:10 AM CDT [facility] HISTORICAL RESULTS RDW 14.5 11.6 - 14.8 % 12/13/2014 1:10 AM CDT [facility] HISTORICAL RESULTS Plt Count 225 124 - 400 x10 3/ul 12/13/2014 1:10 AM T [facility] HISTORICAL RESULTS MPV 9.9 7.4 - 10.4 fl 12/13/2014 1:10 AM T [facility] HISTORICAL RESULTS Differential Method AUTOMATED DIFF --------- -- Neut % 59.9 37.0 - 85.0 % Immature Gran % 0.6 0.0 - 3.0 % Lymph % 26.7 5.0 - 45.0 % [place] % 9.7 3.0 - 15.0 % Eos % 2.7 0.0 - 7.0 % Baso % 0.4 0.0 - 2.0 % ABSOLUTE COUNTS ABSOLUTE COUNTS --------- -- Absolute Neuts (auto) 3.1 1.7 - 8.7 x10 3/ul Immature Gran # 0.0 0.0 - 0.3 x10 3/ul Absolute Lymphs (auto) 1.4 0.2 - 4.6 x10 3/ul Absolute Monos (auto) 0.5 0.1 - 1.5 x10 3/ul Absolute Eos (auto) 0.1 0.0 - 0.7 x10 3/ul Absolute Basos (auto) 0.0 0.0 - 0.2 x10 3/ul 12/13/2014 12:4 7 AM CDT 12/13/2014 1:02 AM T Tanika Mortensen DO LAB BLOOD ORDERABLES F inal Result [facility] HISTORICAL RESULTS documented in this encounter Visit Diagnoses Diagnosis Malposition or malpresentation of fetus, delivered Unspecified malposition or malpresentation of fetus, delivered Maternal anemia, with delivery Anemia of mother, with delivery Acute posthemorrhagic anemia Delivery outcome of single liveborn infant documented in this encounter
--- OUTSIDE RECORDS SUMMARY | 2024-06-05 20:41 | XMS_ITS | Encounter Summary ---
Author Organization [facility] Healthcare Address [address] [place] [address] Care Team Providers Care Forest Pathology Associate Professor Name Role Phone Unavailable Primary Care Provider Unavailabl e Encounter Details Date Type Department Care Team (Latest Contact Info) Description 12/22/2014 3:35 PM CDT - 12/23/2014 11:05 PM CDT Hospital Encounter [facility] Terrance Ramirez MD [address] [place] [address] Eclampsia, condition or complication; Shortness of breath; Other chest pain; Other specified abnormal findings of blood chemistry; Scoliosis (and kyphoscoliosis), idiopathic Social History Tobacco Use Types Packs/Day Years Used Date Smoking Tobacco: Never Assessed Comments Unknown Sex and Gender Information Value Date Recorded Sex Assigned at Not on file Legal Sex Female 6:43 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 Gender Identity Not on file Sexual Orientation Not on file documented as of this encounter Last Filed Vital Signs Vital Sign Reading Time Taken Comments Blood Pressure 129/86 12/22/2014 4:17 PM CDT Pulse 61 12/22/2014 4:17 PM CDT Temperature 36.6 ??C (97.8 ??F) 12/22/2014 4:17 PM CD T Respiratory Rate - - Oxygen Saturation 98% 12/22/2014 4:17 PM CDT Inhaled Oxygen Concentration - - Weight 84.8 kg (187 lb) 12/22/2014 4:17 PM CDT Height 157.5 cm (5' 2 ) 12/22/2014 4:17 PM CDT Body Mass Index 34.2 12/22/2014 4:17 PM CDT documented in this encounter Plan of Treatment Not on file documented as of this encounter Procedures Procedure Name Priority Date/Time Associated Diagnosis Comments HEMOGRAM WITH MANUAL DIFFERENTIAL Routine 12/23/2014 11:54 AM CDT URIC ACID Routine 12/23/2014 11:54 AM CDT MAGNESIUM Routine 12/23/2014 11:54 AM CDT COMPREHENSIVE METABOLIC PANEL Routine 12/23/2014 11:54 AM CDT CBC WITH AUTO DIFFERENTIAL Routine 12/23/2014 12:25 AM CDT COMPREHENSIVE METABOLIC PANEL Routine 12/23/2014 12:25 AM CDT URINALYSIS AND REFLEX TO MICROSCOPIC AND CULTURE Routine 12/22/2014 1:45 PM CDT CBC WITH AUTO DIFFERENTIAL Routine 12/22/2014 12:40 PM CDT COMPREHENSIVE METABOLIC PANEL Routine 12/22/2014 12:[address] CHEST W CONTRAST Routine 12/22/2014 1 2:00 AM CDT documented in this encounter Results * (ABNORMAL) Magnesium (12/23/2014 11:54 AM CDT) Magnesium 6.2(H) 1.6 - 2.6 mg/dL Comment: Magnesium sulfate therapy: ??3.0-9.1 mg/dL 12/23/2014 11:5 4 AM CDT 12/23/2014 11:58 AM CDT Narrative [facility] HISTORICAL RESULTS - 12/23/2014 2:06 PM CDT us Tanika Mortensen DO LAB BLOOD ORDERABLES F inal Result [facility] HISTORICAL RESULTS * (ABNORMAL) Uric acid (12/23/2014 11:54 AM CDT) Uric Acid 8.5(H) 2.4 - 5.7 mg/dL 12/23/2014 11:5 4 AM CDT 12/23/2014 11:58 AM CDT Narrative [facility] HISTORICAL RESULTS - 12/23/2014 12:32 PM CDT Tanika Mortensen DO LAB BLOOD ORDERABLES F inal Result Performing Organization Address [facility] Co de Phone Number [facility] HISTORICAL RESULTS * (ABNORMAL) Comprehensive metabolic panel (12/23/2014 11:54 AM CDT) Sodium 141 135 - 145 mmol/L Potassium 3.8 3.3 - 5.1 mmol/L Chloride 103 96 - 108 mmol/L Carbon Dioxide 25 22 - 32 mmol/L Anion Gap 13 7 - 16 Glucose 88 70 - 100 mg/dL BUN 10 6 - 20 mg/dL Creatinine 0.8 0.5 - 1.1 mg/dL Kidney Disease Stage [...] Kidney failure or on dialysis @ Calcium 7.8(L) 8.6 - 10.0 mg/dL Total Protein 6.0(L) 6.4 - 8.3 g/dL Albumin 3.2(L) 3.5 - 5.2 g/dL Globulin 2.8 2.3 - 3.5 gm/dL Albumin/Globulin Ratio 1.1 1.1 - 1.8 Total Bilirubin < 0.2 0.0 - 1.2 mg/dL AST 35(H) 0 - 32 U/L ALT 48(H) 0 - 33 U/L Alkaline Phosphatase 84 35 - 104 U/L 12/23/2014 11:5 4 AM CDT 12/23/2014 11:58 AM CDT Narrative [facility] HISTORICAL RESULTS - 12/23/2014 12:32 PM CDT us Tanika Mortensen DO LAB BLOOD ORDERABLES F inal Result [facility] HISTORICAL RESULTS * (ABNORMAL) Hemogram with manual differential (12/23/2014 11:54 AM CDT) [facility] WBC 5.0 4.6 - 10.2 x10 3/ul RBC 3.42(L) 3.76 - 4.80 x10 6/ul Hemoglobin 9.6(L) 11.0 - 15.0 g/dl Hct 30.4(L) 33.0 - 43.0 % MCV 88.9 80.0 - 97.0 fl MCH 28.1 27.0 - 31.2 pg MCHC 31.6(L) 31.8 - 35.4 g/dl RDW 14.6 11.6 - 14.8 % Plt Count 326 124 - 400 x10 3/ul MPV 9.5 7.4 - 10.4 fl MANUAL DIFF MANUAL DIFF -------- --- Neutrophils % (Manual) 73 37 - 80 % Band Neutrophils % 1 0 - 9 % 2014 1:02 PM [facility] HISTORICAL RESULTS Lymphocytes % (Manual) 15 10 - 51 % Monocytes % (Manual) 8 0 - 12 % Eosinophils % (Manual) 1 0 - 7 % Basophils % (Manual) 2(H) 0 - 1 % ABSOLUTE COUNTS ABSOLUTE COUNTS -------- --- Abs Neuts cells/mm3 3700 /ul Absolute Neutrophils 3.7 1.7 - 8.7 x10 3/ul Absolute Band Neuts 0.1 0.0 - 0.3 x10 3/ul Absolute Lymphocytes 0.8 0.2 - 4.6 x10 3/ul Absolute Monocytes 0.4 0.1 - 1.5 x10 3/ul Absolute Eosinophils 0.1 0.0 - 0.7 x10 3/ul Absolute Basophils 0.1 0.0 - 0.2 x10 3/ul Platelet Evaluation AGREE AGREE Comment:Slide review of plat elets correlates with instrument count. Polychromasia 1+ Anisocytosis 1+ Poikilocytosis 1+ Ovalocytes 1+ 12/23/2014 11:5 4 AM CDT 12/23/2014 11:58 AM CDT Narrative [facility] HISTORICAL RESULTS - 12/23/2014 1:02 PM CDT Tanika Mortensen DO LAB BLOOD ORDERABLES F inal Result [facility] HISTORICAL RESULTS * (ABNORMAL) Comprehensive metabolic panel (12/23/2014 12:25 AM CDT) Sodium 140 135 - 145 mmol/L Potassium 3.5 3.3 - 5.1 mmol/L Chloride 104 96 - 108 mmol/L Carbon Dioxide 22 22 - 32 mmol/L Anion Gap 14 7 - 16 Glucose 98 70 - 100 mg/dL BUN 13 6 - 20 mg/dL Creatinine 0.7 0.5 [...] Kidney failure or on dialysis @ Calcium 8.5(L) 8.6 - 10.0 mg/dL 12/23/2014 1:[address] [facility] Total Protein 5.7(L) 6.4 - 8.3 g/dL Albumin 3.0(L) 3.5 - 5.2 g/dL Globulin 2.7 2.3 - 3.5 gm/dL Albumin/Globulin Ratio 1.1 1.1 - 1.8 Total Bilirubin < 0.2 0.0 - 1.2 mg/dL AST 38(H) 0 - 32 U/L ALT 51(H) 0 - 33 U/L Alkaline Phosphatase 81 35 - 104 U/L 12/23/2014 12:2 5 AM CDT 12/23/2014 12:47 AM T [facility] HISTORICAL RESULTS - 12/23/2014 1:11 AM CDT us Terrance Ramirez MD LAB BLOOD ORDERABLES Final Result [facility] HISTORICAL RESULTS * (ABNORMAL) CBC with auto differential (12/23/2014 12:25 AM CDT) [facility] WBC 5.7 4.6 - 10.2 x10 3/ul 12/23/2014 12:59 AM CDT [facility] H[facility] RES[facility] RBC 3.32(L) 3.76 - 4.80 x10 6/ul 12/23/2014 12:59 AM CDT [facility] HISTORICAL RESULTS Hemoglobin 9.2(L) 11.0 - 15.0 g/dl 12/23/2014 12:59 AM CDT [facility] HISTORICAL RESULTS Hct 29.7(L) 33.0 - 43.0 % 12/23/2014 12:59 AM CDT [facility] HISTORICAL RESULTS MCV 89.5 80.0 - 97.0 fl 12/23/2014 12:59 AM CDT [facility] HIST[facility] RESULTS MCH 27.7 27.0 - 31.2 pg 12/23/2014 12:59 AM CDT [facility] HISTORICAL RESULTS MCHC 31.0(L) 31.8 - 35.4 g/dl 12/23/2014 12:59 AM CDT [facility] HISTORICAL RESULTS RDW 14.5 11.6 - 14.8 % 12/23/2014 12:59 AM CDT [facility] HISTORICAL RESULTS Plt Count 297 124 - 400 x10 3/ul 12/23/2014 12:59 AM CDT [facility] HISTORICAL RESULTS MPV 9.5 7.4 - 10.4 fl 12/23/2014 12:[address] [facility] Differential Method AUTOMATED DIFF --------- -- 12/23/2014 12:59 AM CDT [facility] HISTORICAL RESULTS Neut % 52.1 37.0 - 85.0 % 12/23/2014 12:59 AM CDT [facility] HISTORICAL RESULTS Immature Gran % 0.5 0.0 - 3.0 % 12/23/2014 12:59 AM CDT [facility] HISTORICAL RESULTS Lymph % 32.4 5.0 - 45.0 % 12/23/2014 12:59 AM CDT [facility] HISTORICAL RESULTS Edgar % 10.3 3.0 - 15.0 % 12/23/2014 12:59 AM CDT [facility] HISTORICAL RESULTS Eos % 4.0 0.0 - 7.0 % Baso % 0.7 0.0 - 2.0 % ABSOLUTE COUNTS ABSOLUTE COUNTS --------- -- Absolute Neuts (auto) 3.0 1.7 - 8.7 x10 3/ul Immature Gran # 0.0 0.0 - 0.3 x10 3/ul Absolute Lymphs (auto) 1.9 0.2 - 4.6 x10 3/ul Absolute Monos (auto) 0.6 0.1 - 1.5 x10 3/ul Absolute Eos (auto) 0.2 0.0 - 0.7 x10 3/ul Absolute Basos (auto) 0.0 0.0 - 0.2 x10 3/ul 12/23/2014 12:2 5 AM CDT 12/23/2014 12:47 AM CDT Narrative [facility] HISTORICAL RESULTS - 12/23/2014 12:59 AM CDT us Terrance Ramirez MD LAB BLOOD ORDERABLES Final Result [facility] HISTORICAL RESULTS * (ABNORMAL) Urinalysis reflex to microscopic and culture (12/22/2014 1:45 PM CDT) Ur Collection Type CLEAN CATCH Ur Culture Indicated? C&S NOT INDICATED Urine Color YELLOW YELLOW Urine Clarity CLEAR CLEAR Urine Glucose (UA) NORMAL NORMAL mg/dL Urine Bilirubin NEGATIVE NEGATIVE mg/dl Urine Ketones NEGATIVE NEGATIVE mg/dL Ur Specific [place] 1.017 1.005 - 1.025 Urine Blood 0.2(H) NEGATIVE mg/dl Urine pH 6.0 5.0 - 8.0 Urine Protein 10(H) NEGATIVE mg/dL Urine Urobilinogen NORMAL NORMAL mg/dL Urine Nitrite NEGATIVE NEGATIVE Ur Leukocyte Esterase 250(H) NEGATIVE Shaylee/ul Ur Microscopic Review Indicated or Ordered Urine RBC 9 0 - 2 /HPF Urine WBC 7 0 - 2 /HPF Urine Mucus Rare /LPF 12/22/2014 1:45 PM CDT 12/22/2014 2:03 PM T Narrative [facility] HISTORICAL RESULTS - 12/22/2014 2:15 PM CDT us Federica Dillard NP LAB MICROBIOLOGY - GENERAL OR DERABLES Final Result [facility] HISTORICAL RESULTS * (ABNORMAL) Comprehensive metabolic panel (12/22/2014 12:40 PM CDT) [facility] Sodium 140 135 - 145 mmol/L Potassium 3.8 3.3 - 5.1 mmol/L Chloride 105 96 - 108 mmol/L Carbon Dioxide 24 22 - 32 mmol/L Anion Gap 11 7 - 16 Glucose 79 70 - 100 mg/dL BUN 14 6 - 20 mg/dL Creatinine 0.8 0.5 - 1.1 mg/dL Kidney Disease Stage [...] Kidney failure or on dialysis @ Calcium 8.3(L) 8.6 - 10.0 mg/dL Total Protein 6.4 6.4 - 8.3 g/dL Albumin 3.3(L) 3.5 - 5.2 g/dL Globulin 3.1 2.3 - 3.5 gm/dL Albumin/Globulin Ratio 1.1 1.1 - 1.8 Total Bilirubin < 0.2 0.0 - 1.2 mg/dL AST 47(H) 0 - 32 U/L ALT 58(H) 0 - 33 U/L Alkaline Phosphatase 86 35 - 104 U/L 12/22/2014 12:4 0 PM CDT 12/22/2014 12:58 PM CDT us Federica Dillard PLAYGROUND ATTENDANT LAB BLOOD ORDERABLES Final Re sult [facility] HISTORICAL RESULTS * (ABNORMAL) CBC with auto differential (12/22/2014 12:40 PM CDT) WBC 5.3 4.6 - 10.2 x10 3/ul RBC 3.37(L) 3.76 - 4.80 x10 6/ul Hemoglobin 9.5(L) 11.0 - 15.0 g/dl Hct 30.2(L) 33.0 - 43.0 % MCV 89.6 80.0 - 97.0 fl MCH 28.2 27.0 - 31.2 pg MCHC 31.5(L) 31.8 - 35.4 g/dl RDW 14.8 11.6 - 14.8 % Plt Count 281 124 - 400 x10 3/ul MPV 9.6 7.4 - 10.4 fl Differential Method AUTOMATED DIFF --------- -- Neut % 55.0 37.0 - 85.0 % Immature Gran % 0.8 0.0 - 3.0 % Lymph % 28.9 5.0 - 45.0 % Edgar % 10.9 3.0 - 15.0 % Eos % 3.8 0.0 - 7.0 % Baso % 0.6 0.0 - 2.0 % ABSOLUTE COUNTS ABSOLUTE COUNTS --------- -- Absolute Neuts (auto) 2.9 1.7 - 8.7 x10 3/ul Immature Gran # 0.0 0.0 - 0.3 x10 3/ul Absolute Lymphs (auto) 1.5 0.2 - 4.6 x10 3/ul Absolute Monos (auto) 0.6 0.1 - 1.5 x10 3/ul Absolute Eos (auto) 0.2 0.0 - 0.7 x10 3/ul Absolute Basos (auto) 0.0 0.0 - 0.2 x10 3/ul 12/22/2014 12:4 0 PM CDT 12/22/2014 12:58 PM CDT Federica Dillard PLAYGROUND ATTENDANT LAB BLOOD ORDERABLES Final Re sult [facility] HISTORICAL RESULTS * CT Chest W Contrast (12/22/2014 12:00 AM CDT) Anatomical Region Laterality Modality Body N/A Computed Tomogra phy 12/22/2014 Impressions 12/22/2014 3:11 PM CDT 1. ??No pulmonary embolism. 2. ??No CT evidence of acute cardiopulmonary process. 3. ??No significant interval change in the dextroscoliosis in the lower thoracic spine, measuring approximately 30 degrees. ?? THIS IS AN ELECTRONICALLY VERIFIED REPORT 12/22/2014 3:07 PM: ??Al Huynh M.D. Al Huynh M.D. CN:sandra 03:07 PM 03:07 PM BM [EOD] Narrative 12/22/2014 3:11 PM CDT EXAMINATION: ??CT chest with intravenous contrast HISTORY: Recently , now presenting with chest pain COMPARISON: Chest radiographs 12/10/2007 TECHNIQUE: ??Computed tomographic images of the chest were obtained after the administration of 80 mL of Omnipaque 350 intravenous contrast according to pulmonary embolism protocol FINDINGS: ?? There is no pulmonary embolism. There is mild left basilar atelectasis. ??There is no focal consolidation, pneumothorax, or pleural effusion. ??There are no abnormal pulmonary nodules or masses. The heart is at the upper limits of normal in size. ??There is no pericardial effusion. There is no significant atherosclerotic calcification in the coronary arteries or thoracic aorta. ??The thoracic aorta is normal in caliber. There is no mediastinal, hilar, axillary, or supraclavicular lymphadenopathy. Limited images of the upper abdomen demonstrate no significant abnormality. Bone windows do not demonstrate any abnormal osseous lytic or blastic lesions. There is no significant change in the dextroscoliosis in the lower thoracic spine, measuring approximately 30 degrees. Procedure Note Provider, MD Barry - 10/24/2020 EXAMINATION: CT chest with intravenous contrast HISTORY: Recently , now presenting with chest pain COMPARISON: Chest radiographs 12/10/2007 TECHNIQUE: Computed tomographic images of the chest were obtained afterthe administration of 80 mL of Omnipaque 350 intravenous contrast according to pulmonary embolism protocol FINDINGS: There is no pulmonary embolism. There is mild left basilar atelectasis. There is no focal consolidation, pneumothorax, or pleural effusion. There are no abnormal pulmonarynodules or masses. The heart is at the upper limits of normal in size. There is nopericardial effusion. There is no significant atherosclerotic calcification in the coronary arteries or thoracic aorta. The thoracic aorta is normal incaliber. There is no mediastinal, hilar, axillary, or supraclavicularlymphadenopathy. Limited images of the upper abdomen demonstrate no significantabnormality. Bone windows do not demonstrate any abnormal osseous lytic or blasticlesions. There is no significant change in the dextroscoliosis in the lowerthoracic spine, measuring approximately 30 degrees. IMPRESSION: 1. No pulmonary embolism. 2. No CT evidence of acute cardiopulmonary process. 3. No significant interval change in the dextroscoliosis in the lower thoracic spine, measuring approximately 30 degrees. THIS IS AN ELECTRONICALLY VERIFIED REPORT 12/22/2014 3:07 PM: Al Huynh M.D. Al Huynh M.D. CN:sandra 03:07 PM 03:07 PM [facility] [EOD] Historical Provider MD VASQUEZ CT PROCEDURES Final R esult documented in this encounter Visit Diagnoses Diagnosis Eclampsia, condition or complication Shortness of breath Other chest pain Other specified abnormal findings of blood chemistry Scoliosis (and kyphoscoliosis), idiopathic documented in this encounter
--- OUTSIDE RECORDS SUMMARY | 2024-06-05 20:41 | XMS_ITS | Encounter Summary ---
Author Organization [facility] Healthcare Address [address] [place] [address] Care Team Providers Care Fan Blade Truer Name Role Phone Unavailable Primary Care Provider Unavailabl e Encounter Details Date Type Department Care Team (Latest Contact Info) Description 08/30/2014 1:45 PM CDT - 10/30/2014 1:45 PM CDT Hospital Encounter [facility] Terrance Ramirez MD [address] [place] [id number] Low back pain; Scoliosis (and kyphoscoliosis), idiopathic; Encounter for other physical therapy Social History Tobacco Use Types Packs/Day Years Used Date Smoking Tobacco: Never Assessed Comments Unknown Sex and Gender Information Value Date Recorded Sex Assigned at Not on file 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
--- OUTSIDE RECORDS SUMMARY | 2024-06-05 20:41 | XMS_ITS | Encounter Summary ---
Author Organization [facility] Healthcare Address [address] [place] [address] Care Team Providers Care Cop Breaker Name Role Phone Unavailable Primary Care Provider Unavailabl e Encounter Details Date Type Department Care Team (Latest Contact Info) Description 11/22/2014 10:30 PM CDT - 11/22/2014 11:15 PM CDT Hospital Encounter [facility] Terrance Ramirez MD [address] [place] [address] Other current maternal conditions classifiable elsewhere, antepartum Social History Tobacco Use Types Packs/Day Years Used Date Smoking Tobacco: Never Assessed Comments Unknown Sex and Gender Information Value Date Recorded Sex Assigned at Not on file 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 Gender Identity Not on file Sexual Orientation Not on file documented as of this encounter Last Filed Vital Signs Vital Sign Reading Time Taken Comments Blood Pressure 121/78 11/22/2014 10:48 PM CDT Pulse 83 11/22/2014 10:48 PM CDT Temperature 36.7 ??C (98.1 ??F) 11/22/2014 10:48 PM C DT Respiratory Rate - - Oxygen Saturation 98% 11/22/2014 10:48 PM CDT Inhaled Oxygen Concentration - - Weight 86.2 kg (190 lb) 11/22/2014 10:48 PM CDT Height 170.2 cm (5' 7 ) 11/22/2014 10:48 PM CDT Body Mass Index 29.76 11/22/2014 10:48 PM CDT documented in this encounter Plan of Treatment Not on file documented as of this encounter Procedures Procedure Name Priority Date/Time Associated Diagnosis Comments URINALYSIS AND REFLEX TO MICROSCOPIC AND CULTURE Routine 11/22/2014 10:40 PM CDT DRUGS OF ABUSE SCREEN, URINE WITHOUT CONFIRMATION Routine 11/22/2014 10:40 PM CDT documented in this encounter Results * (ABNORMAL) Urinalysis reflex to microscopic and culture (11/22/2014 10:40 PM CDT) Ur Collection Type CLEAN CATCH 11/22/2014 11:01 PM [facility] HISTORICAL RESULTS Ur Culture Indicated? C&S NOT INDICATED 11/22/2014 11:01 PM [facility] HISTORICAL RESULTS Urine Color STRAW YELLOW 11/22/2014 11:01 PM [facility] HISTORICAL RESULTS Urine Clarity HAZY CLEAR 11/22/2014 11:01 PM [facility] HISTORICAL RESULTS Urine Glucose (UA) NORMAL NORMAL mg/dL 11/22/2014 11:01 PM [facility] HISTORICAL RESULTS Urine Bilirubin NEGATIVE NEGATIVE mg/dl 11/22/2014 11:01 PM [facility] HISTORICAL RESULTS Urine Ketones NEGATIVE NEGATIVE mg/dL 11/22/2014 11:01 PM [facility] HISTORICAL RESULTS Ur Specific [place] 1.009 1.005 - 1.025 11/22/2014 11:01 PM [facility] HISTORICAL RESULTS Urine Blood NEGATIVE NEGATIVE mg/dl 11/22/2014 11:01 PM [facility] HISTORICAL RESULTS Urine pH 6.5 5.0 - 8.0 11/22/2014 11:01 PM [facility] HISTORICAL RESULTS Urine Protein NEGATIVE NEGATIVE mg/dL 11/22/2014 11:01 PM [facility] HISTORICAL RESULTS Urine Urobilinogen NORMAL NORMAL mg/dL 11/22/2014 11:01 PM [facility] HISTORICAL RESULTS Urine Nitrite NEGATIVE NEGATIVE 11/22/2014 11:01 PM [facility] HISTORICAL RESULTS Ur Leukocyte Esterase 500(H) NEGATIVE Shaylee/ul Ur Microscopic Review Indicated or Ordered Urine RBC 4 0 - 2 /HPF Urine WBC 4 0 - 2 /HPF Urine Mucus Rare /LPF Ur Squamous Epith Cells Rare /HPF 11/22/2014 10:4 0 PM CDT 11/22/2014 10:52 PM T Narrative [facility] HISTORICAL RESULTS - 11/22/2014 11:01 PM CDT Collected By SS ?? us Tanika Mortensen DO LAB MICROBIOLOGY - GEN ERAL ORDERABLES Final Result [facility] HISTORICAL RESULTS * Drug Screen, Urine (11/22/2014 10:40 PM CDT) Ur Amphetamine Screen NEGATIVE NEGATIVE Comment: Cutoff Limit: ??1000 ng/mL Note: ??Positive results from this drug screen are unconfirmed. ??Unconfirmed screening results should not be used for non-medical purposes. Ur Barbiturates Screen NEGATIVE NEGATIVE 11/22/2014 11:12 PM [facility] HISTORICAL RESULTS Comment:Cutoff limit: 200 ng /mL U Benzodiazepines Scrn NEGATIVE NEGATIVE 11/22/2014 11:12 PM [facility] HISTORICAL RESULTS Comment:Cutoff limit: 300 ng /mL U Cannabinoids Screen NEGATIVE NEGATIVE Comment:Cutoff Limit: 50 ng/ mL U Cocaine Metab Screen NEGATIVE NEGATIVE 11/22/2014 11:12 PM [facility] HISTORICAL RESULTS Comment:Cutoff limit: 300 ng /mL Urine Opiates Screen NEGATIVE NEGATIVE 11/22/2014 11:12 PM [facility] HISTORICAL RESULTS Comment:Cutoff Limit: 300 ng /mL Urine Creatinine/NIYAH 96.0 mg/dL Comment:If Creatinine is < 4 0 mg/dL, recollection is suggested. 11/22/2014 10:4 0 PM CDT 11/22/2014 10:58 PM CDT Narrative [facility] HISTORICAL RESULTS - 11/22/2014 11:12 PM CDT Collected By SS Tanika Mortensen DO LAB URINE ORDERABLES F inal Result [facility] HISTORICAL RESULTS documented in this encounter Visit Diagnoses Diagnosis Other current maternal conditions classifiable elsewhere, antepartum documented in this encounter
--- OUTSIDE RECORDS SUMMARY | 2024-06-05 20:41 | XMS_ITS | Encounter Summary ---
Author Organization [facility] Address [address] [place] [address] Care Team Providers Care Exhibit Electrician Name Role Phone Unavailable Primary Care Provider Unavailabl e Encounter Details Date Type Department Care Team (Late st Contact Info) Description 06/21/2014 10:12 AM DIRECTOR OF BRAND MARKETING Hospital Encounter [facility] Yeimy Baxter, [place] [address] [place], [place] [id number] state, incidental; Screening for malignant neoplasm of cervix; Screening for HPV (human papillomavirus) Social History Tobacco Use Types Packs/Day Years Used Date Smoking Tobacco: Never Assessed Comments Unknown Sex and Gender Information Value Date Recorded Sex Assigned at Not on file Legal Sex Female 6:43 PM DIRECTOR OF BRAND MARKETING Gender Identity Not on file Sexual Orientation Not on file documented as of this encounter Plan of Treatment Not on file documented as of this encounter Procedures Procedure Name Priority Date/Time Associated Diagnosis Comments SCAN - LABS 06/27/2014 12:00 AM DIRECTOR OF BRAND MARKETING SCAN - LABS 06/24/2014 12:00 AM DIRECTOR OF BRAND MARKETING CYSTIC FIBROSIS MUTATION PANEL Routine 06/21/2014 10:26 AM DIRECTOR OF BRAND MARKETING HIV-1 AND HIV-2 ANTIBODY, RAPID Routine 06/21/2014 10:26 AM DIRECTOR OF BRAND MARKETING URINE DRUG SCREEN Routine 06/21/2014 10: 26 AM DIRECTOR OF BRAND MARKETING CBC WITH AUTO DIFFERENTIAL Routine 06/21/2014 10:26 AM DIRECTOR OF BRAND MARKETING PROGESTERONE Routine 06/21/2014 10:26 AM DIRECTOR OF BRAND MARKETING RUBELLA IGG Routine 06/21/2014 10:26 AM DIRECTOR OF BRAND MARKETING RPR Routine 06/21/2014 10:26 AM DIRECTOR OF BRAND MARKETING HEPATITIS B SURFACE ANTIGEN Routine 06/21/2014 10:26 AM DIRECTOR OF BRAND MARKETING SICKLE CELL SCREEN Routine 06/21/2014 10 :26 AM DIRECTOR OF BRAND MARKETING HCG, BLOOD, QUANTITATIVE Routine 06/21/2014 10:26 AM DIRECTOR OF BRAND MARKETING HEMOGLOBIN A1C Routine 06/21/2014 10:26 AM DIRECTOR OF BRAND MARKETING URINALYSIS AND REFLEX TO MICROSCOPIC AND CULTURE Routine 06/21/2014 10:15 AM DIRECTOR OF BRAND MARKETING THIN PREP REFLEX HPV SCREEN Routine 06/21/2014 9:00 AM DIRECTOR OF BRAND MARKETING THIN PREP GC CHLAMYDIA Routine 06/21/2014 9:00 AM DIRECTOR OF BRAND MARKETING documented in this encounter Results * SCAN - LABS (06/27/2014 12:00 AM DIRECTOR OF BRAND MARKETING) Narrative 06/27/2014 12:00 AM DIRECTOR OF BRAND MARKETING Ordered by an unspecified provider. us Historical Provider Final Res ult * SCAN - LABS (06/24/2014 12:00 AM DIRECTOR OF BRAND MARKETING) Narrative 06/24/2014 12:00 AM DIRECTOR OF BRAND MARKETING Ordered by an unspecified provider. us Historical Provider Final Res ult * Urine Drug Screen (06/21/2014 10:26 AM DIRECTOR OF BRAND MARKETING) [facility] Signature Drug Screen Comment SEE COMMENTS 06/24/2014 6:39 AM DIRECTOR OF BRAND MARKETING [facility] HISTORICAL RESULTS Comment: Note: Results via Scanned Reports in EMR or ?? by paper report only. ?? Specimen sent to Reference lab. ?? Results usually in 2-7 days. ?? USD REPORT RECEIVED 06/24/14 06/21/2014 10:2 6 AM DIRECTOR OF BRAND MARKETING 06/21/2014 10:47 AM DIRECTOR OF BRAND MARKETING Narrative [facility] HISTORICAL RESULTS - 06/24/2014 6:39 AM DIRECTOR OF BRAND MARKETING us Yeimy Lennon NP LAB BLOOD ORDERABLES Final R esult [facility] HISTORICAL RESULTS * CYSTIC FIBROSIS MUTATION PANEL (06/21/2014 10:26 AM DIRECTOR OF BRAND MARKETING) Pathologist [facility] pending comment COMMENT 06/21/2014 10:48 AM DIRECTOR OF BRAND MARKETING [facility] HISTORICAL RESULTS Comment: Note: Results via Scanned Reports in EMR or ?? by paper report only. ?? Specimen sent to Reference lab. ?? Results usually in 2-7 days. 06/21/2014 10:2 6 AM DIRECTOR OF BRAND MARKETING 06/21/2014 10:47 AM DIRECTOR OF BRAND MARKETING Narrative [facility] HISTORICAL RESULTS - 06/21/2014 10:48 AM DIRECTOR OF BRAND MARKETING us Yeimy Lennon NP LAB BLOOD ORDERABLES Final R esult [facility] HISTORICAL RESULTS * RPR, serum (06/21/2014 10:26 AM DIRECTOR OF BRAND MARKETING) [facility] RPR NONREACTIVE NONREACTIVE 06/22/2014 7:05 AM DIRECTOR OF BRAND MARKETING [facility] HISTORICAL RESULTS 06/21/2014 10:2 6 AM DIRECTOR OF BRAND MARKETING 06/21/2014 10:47 AM DIRECTOR OF BRAND MARKETING us Yeimy Lennon NP LAB MICROBIOLOGY - GENERAL O RDERABLES Final Result [facility] HISTORICAL RESULTS * HIV-1 and HIV-2 antibody, rapid (06/21/2014 10:26 AM DIRECTOR OF BRAND MARKETING) [facility] HIV 1/2 Ab NONREACTIVE NONREACTIVE 06/21/2014 11:15 AM [facility] [employer] HISTORICAL RESULTS Comment: Note: ??A Non-Reactive result indicates an absence of detectable HIV-1/2 antibodies in the patient. However, it does not rule out recent exposure or past infection with HIV. 06/21/2014 10:2 6 AM DIRECTOR OF BRAND MARKETING 06/21/2014 10:47 AM DIRECTOR OF BRAND MARKETING Yeimy Lennon NP LAB BLOOD ORDERABLES Final R [facility] Performing Organization Address [facility]/ZIP Co de Phone Number [facility] HISTORICAL RESULTS * Sickle cell screen (06/21/2014 10:26 AM DIRECTOR OF BRAND MARKETING) [facility] Sickle Cell Screen NEGATIVE 2014 11:22 AM [facility] [employer] [email or web address] HISTORICAL RESULTS Comment: A positive sickle prep only detects the presence of sickle cell trait. Please order a Hemoglobin Electrophoresis to determine the presence of sickle cell disease. 06/21/2014 10:2 6 AM DIRECTOR OF BRAND MARKETING 06/21/2014 10:47 AM DIRECTOR OF BRAND MARKETING Yeimy Lennon NP LAB BLOOD ORDERABLES Final [facility] Performing Organization Address [facility] Co de Phone Number [facility] [employer] [email or web address] HISTORICAL RESULTS * CBC with auto differential (06/21/2014 10:26 AM DIRECTOR OF BRAND MARKETING) [facility] WBC 7.1 4.6 - 10.2 x10 3/ul 06/21/2014 10:53 AM [facility] [employer] HISTORICAL RESULTS RBC 4.36 3.76 - 4.80 x10 6/ul 06/21/2014 10:53 AM [facility] [employer] HISTORICAL RESULTS Hemoglobin 12.6 11.0 - 15.0 g/dl 06/21/2014 10:53 AM [facility] [employer] HISTORICAL RESULTS Hct 38.3 33.0 - 43.0 % 06/21/2014 10:53 AM [facility] [employer] HISTORICAL RESULTS MCV 87.8 80.0 - 97.0 fl 06/21/2014 10:53 AM [email or web address] HISTORICAL RESULTS MCH 28.9 27.0 - 31.2 pg 06/21/2014 10:53 AM [email or web address] HISTORICAL RESULTS MCHC 32.9 31.8 - 35.4 g/dl 06/21/2014 10:53 AM DIRECTOR OF BRAND MARKETING [email or web address] HISTORICAL RESULTS RDW 12.4 11.6 - 14.8 % Plt Count 324 124 - 400 x10 3/ul 06/21/2014 10:53 AM [email or web address] HISTORICAL RESULTS MPV 9.8 7.4 - 10.4 fl 06/21/2014 10:53 AM [email or web address] HISTORICAL RESULTS Differential Method AUTOMATED DIFF --------- -- 06/21/2014 10:53 AM DIRECTOR OF BRAND MARKETING [email or web address] HISTORICAL RESULTS Neut % 68.3 37.0 - 85.0 % 06/21/2014 10:53 AM DIRECTOR OF BRAND MARKETING [email or web address] HISTORICAL RESULTS Immature Gran % 0.1 0.0 - 3.0 % 06/21/2014 10:53 AM [employer] [email or web address] HISTORICAL RESULTS Lymph % 20.8 5.0 - 45.0 % 06/21/2014 10:53 AM [employer] [email or web address] HISTORICAL RESULTS [place] % 7.1 3.0 - 15.0 % 06/21/2014 10:53 AM [employer] [email or web address] HISTORICAL RESULTS Eos % 3.1 0.0 - 7.0 % 06/21/2014 10:53 AM DIRECTOR OF BRAND MARKETING [email or web address] HISTORICAL RESULTS Baso % 0.6 0.0 - 2.0 % 06/21/2014 10:53 AM [employer] [email or web address] HISTORICAL RESULTS ABSOLUTE COUNTS ABSOLUTE COUNTS --------- -- 06/21/2014 10:53 AM [employer] [email or web address] HISTORICAL RESULTS Absolute Neuts (auto) 4.8 1.7 - 8.7 x10 3/ul 06/21/2014 10:53 AM [employer] [email or web address] HISTORICAL RESULTS Immature Gran # 0.0 0.0 - 0.3 x10 3/ul 06/21/2014 10:53 AM [employer] [email or web address] HISTORICAL RESULTS Absolute Lymphs (auto) 1.5 0.2 - 4.6 x10 3/ul 06/21/2014 10:53 AM [employer] [email or web address] HISTORICAL RESULTS Absolute Monos (auto) 0.5 0.1 - 1.5 x10 3/ul Absolute Eos (auto) 0.2 0.0 - 0.7 x10 3/ul Absolute Basos (auto) 0.0 0.0 - 0.2 x10 3/ul 06/21/2014 10:2 6 AM DIRECTOR OF BRAND MARKETING 06/21/2014 10:47 AM DIRECTOR OF BRAND MARKETING Yeimy Lennon NP LAB BLOOD ORDERABLES Final R esult Performing Organization Address City/[facility]/ZIP Co de Phone Number [facility] HISTORICAL RESULTS * (ABNORMAL) Rubella IgG (06/21/2014 10:26 AM DIRECTOR OF BRAND MARKETING) Pathologist [facility] Rubella IgG EQUIVOCA L(H) Comment: Suggest RecollectionSiemens Centaur XP using chemiluminescent technology. Use of assay to diagnose current infection (acute and convalescent) is not recommended. 06/21/2014 10:2 6 AM DIRECTOR OF BRAND MARKETING 06/21/2014 10:47 AM DIRECTOR OF BRAND MARKETING [facility] HISTORICAL RESULTS - 06/21/2014 11:47 AM DIRECTOR OF BRAND MARKETING Yeimy Lennon NP LAB MICROBIOLOGY - GENERAL O RDERABLES Final Result Performing Organization Address [facility]/ZIP Co de Phone Number [facility] HISTORICAL RESULTS * Hepatitis B Surface Antigen (06/21/2014 10:26 AM DIRECTOR OF BRAND MARKETING) Pathologist [facility] HepBsAg NONREACT NONREACTIVE Comment: Siemens CentaurXP using SHANE (chemiluminescent immunoassay) technology. NONREACTIVE: IgM antibodies to Hepatitis B Surface antigen not detected. REACTIVE: IgM antibodies to Hepatitis B Surface antigen detected. Reactive results will be confirmed by neutralization testing. 06/21/2014 10:2 6 AM DIRECTOR OF BRAND MARKETING 06/21/2014 10:47 AM DIRECTOR OF BRAND MARKETING Narrative [facility] HISTORICAL RESULTS - 06/21/2014 11:47 AM DIRECTOR OF BRAND MARKETING us Yeimy Lennon SLIPMAN LAB MICROBIOLOGY - GENERAL O RDERABLES Final Result [facility] HISTORICAL RESULTS * (ABNORMAL) hCG, blood, quantitative (06/21/2014 10:26 AM DIRECTOR OF BRAND MARKETING) Beta HCG, Quant 51093.0(H) 0.0 - 1.0 mIU/mL 06/21/2014 12:02 PM DIRECTOR OF BRAND MARKETING [facility] HISTORICAL RESULTS Comment: Weeks of preg ?BHCG [...] for the early detection of . ? 06/21/2014 10:2 6 AM DIRECTOR OF BRAND MARKETING 06/21/2014 10:47 AM DIRECTOR OF BRAND MARKETING Narrative [facility] HISTORICAL RESULTS - 06/21/2014 12:02 PM DIRECTOR OF BRAND MARKETING Yeimy Lennon NP LAB BLOOD ORDERABLES Final R esult Performing Organization Address [facility] de Phone Number [facility] HISTORICAL RESULTS * Progesterone (06/21/2014 10:26 AM DIRECTOR OF BRAND MARKETING) Pathologist [facility] Progesterone 41.7 ng/mL 06/21/2014 11:58 AM DIRECTOR OF BRAND MARKETING [facility] HISTORICAL RESULTS Comment: PROGESTERONE Reference Ranges for WOMEN ?? Follicular phase ? 0.1 - 0.9 ng/mL ?? Ovulation phase ?0.1 - 12.0 ng/mL ?? Luteal phase ? 1.8 - 23.9 ng/mL ?? Postmenopause ?0 - 0.1 ng/mL 06/21/2014 10:2 6 AM DIRECTOR OF BRAND MARKETING 06/21/2014 10:47 AM DIRECTOR OF BRAND MARKETING Narrative [facility] HISTORICAL RESULTS - 06/21/2014 11:58 AM DIRECTOR OF BRAND MARKETING Yeimy Lennon NP LAB BLOOD ORDERABLES Final R esult Performing Organization Address [facility] de Phone Number [facility] HISTORICAL RESULTS * Hemoglobin A1c (06/21/2014 10:26 AM DIRECTOR OF BRAND MARKETING) Pathologist [facility] Hemoglobin A1c % 5.8 4.8 - 5.9 % 06/21/2014 12:22 PM DIRECTOR OF BRAND MARKETING [facility] HISTORICAL RESULTS Comment: As of 2010 Method: ??RESHMA Cyndy 6000 using turbidometric inhibition immunoassay procedure. Results obtained are comparable to results obtained using previous methodology (HPLC). [place] [employer] recommends that the goal of therapy should be an A1C hemoglobin of <7%. Reevaluate the treatment regimen in patients with an A1C >8%. 06/21/2014 10:2 6 AM DIRECTOR OF BRAND MARKETING 06/21/2014 10:47 AM DIRECTOR OF BRAND MARKETING Narrative [facility] HISTORICAL RESULTS - 06/21/2014 12:22 PM DIRECTOR OF BRAND MARKETING Yeimy Lennon SLIPMAN LAB BLOOD ORDERABLES Final R esult [facility] HISTORICAL RESULTS * (ABNORMAL) Urinalysis reflex to microscopic and culture (06/21/2014 10:15 AM DIRECTOR OF BRAND MARKETING) Ur Collection Type CLEAN CATCH Ur Culture Indicated? C&S NOT INDICATED Urine Color YELLOW YELLOW Urine Clarity HAZY CLEAR Urine Glucose (UA) NORMAL NORMAL mg/dL Urine Bilirubin NEGATIVE NEGATIVE mg/dl Urine Ketones NEGATIVE NEGATIVE mg/dL Ur Specific Halfway 1.027(H) 1.005 - 1.025 Urine Blood NEGATIVE NEGATIVE mg/dl Urine pH 6.0 5.0 - 8.0 Urine Protein 10(H) NEGATIVE mg/dL Urine Urobilinogen 2(H) NORMAL mg/dL Urine Nitrite NEGATIVE NEGATIVE Ur Leukocyte Esterase NEGATIVE NEGATIVE Shaylee/ul Ur Microscopic Review Indicated or Ordered Urine RBC 2 0 - 2 /HPF 06/21/2014 11:00 AM DIRECTOR OF BRAND MARKETING [facility] HISTORICAL RESULTS Urine WBC <1 0 - 2 /HPF 06/21/2014 11:00 AM DIRECTOR OF BRAND MARKETING [facility] HISTORICAL RESULTS Urine Mucus Mod /LPF 06/21/2014 11:00 AM DIRECTOR OF BRAND MARKETING [facility] HISTORICAL RESULTS Ur Squamous Epith Cells Rare /HPF 06/21/2014 11:00 AM DIRECTOR OF BRAND MARKETING [facility] HISTORICAL RESULTS Calcium Oxalate Crystal Mod /HPF 06/21/2014 10:1 5 AM DIRECTOR OF BRAND MARKETING 06/21/2014 10:50 AM DIRECTOR OF BRAND MARKETING Narrative [facility] HISTORICAL RESULTS - 06/21/2014 11:00 AM DIRECTOR OF BRAND MARKETING us Yeimy Lennon [employer] LAB MICROBIOLOGY - GENERAL O RDERABLES Final Result [facility] HISTORICAL RESULTS * THIN PREP GC CHLAMYDIA (06/21/2014 9:00 AM DIRECTOR OF BRAND MARKETING) C. trachomatis RNA Negative Negative N. gonorrhoeae RNA Negative Negative Comment: INTERPRETIVE INFORMATION: CT/NG by TMA, ThinPrep [...] nucleic ?? acid target. ?? Performed by [facility], ?? [address] [place] [address] ?? [email or web address], Jaylen Rudolph MD, Lab. Director ?? 06/21/2014 9:00 AM DIRECTOR OF BRAND MARKETING 06/21/2014 1:20 PM DIRECTOR OF BRAND MARKETING us Yeimy Lennon [employer] LAB BLOOD ORDERABLES Final R esult [facility] HISTORICAL RESULTS * THIN PREP REFLEX HPV SCREEN (06/21/2014 9:00 AM DIRECTOR OF BRAND MARKETING) Thin Prep Pap Smear SEE BELOW () 07/01 11:25 AM DIRECTOR OF BRAND MARKETING [facility] HISTORICAL RESULTS Comment: Radio/Tv Technician ThinPrep HPVR Cytology Final Report ? ThinPrep Pap Specimen Source ? Cervix/Endocervix ?? Specimen Adequacy ? Satisfactory for interpretation, endocervical cells ?? (transformation zone) not present. ?? Interpretation ? Negative for intraepithelial lesion or malignancy. ?? 07/01/14 Acquisition Marketing Manager: DAVID Hare(ASCP) ?? 07/01/14 ?Verified By: DAVID Hare(ASCP) ? electronic signature ?? [facility], Department of Pathology ?? For questions regarding this case, ?? call ext. [phone] ?? CPT Code(s) ? 57610 ?? Clinical History ? LMP: N ?? : Y ?? : N ?? IUD: N ?? Hormone Therapy: N ?? Postmenopausal: N ?? Previous surgery date and type: N ?? Hysterectomy: N ?? Chemotherapy: N ?? TOD Exposure: N ?? Radiation: N ?? Previous Abnormal Pap? Details: N ?? Diagnostic or Screening Pap Test: Screening ?? Performed by [facility], ?? [address], [facility] [place] [address] ?? [email or web address], Jaylen Rudolph MD - Lab. Director ?? 06/21/2014 9:00 AM DIRECTOR OF BRAND MARKETING 06/21/2014 1:20 PM DIRECTOR OF BRAND MARKETING us Yeimy Lennon NP LAB PATHOLOGY ORDERABLES Fin al Result [facility] HISTORICAL RESULTS documented in this encounter Visit Diagnoses Diagnosis state, incidental Screening for malignant neoplasm of cervix Screening for malignant neoplasm of the cervix Screening for HPV (human papillomavirus) Special screening examination for human papillomavirus (HPV) documented in this encounter
== END 2024-05-29 14:00 | disposition home or self-care (01) ==
PROVIDERS: PCP Family Medicine; Visit Provider Anesthesiology Pain Medicine
DX: M48.04 Spinal stenosis, thoracic region (principal); M43.04 Spondylolysis, thoracic region; M41.83 Other forms of scoliosis, cervicothoracic region
CPT/HCPCS: 72146

== ENCOUNTER 2024-07-27 11:43 | Outpatient (CLI) | payer OTHER, SELFPAY ==
--- OUTSIDE RECORDS SUMMARY | 2024-07-27 11:45 | XMS_ITS | Referral Summary ---
Author Organization [facility] Address [address] [place] [id number] Care Team Providers Care Central Sterile Supply Technician Name Role Phone Lissybabar Magy [place] Primary Care Provider [phone] Allergies Active Allergy Reactions Criticality Noted Date [...] on file Legal Sex Female 6:43 PM TUNNEL WORKER Gender Identity Not on file Sexual Orientation Not on file Last Filed Vital Signs Vital Sign Reading Time Taken Comments Blood Pressure 119/85 04/20/2022 12:33 PM TUNNEL WORKER Pulse 88 04/20/2022 12:33 PM TUNNEL WORKER Temperature 37.3 C (99.2 F) 04/20/2022 10:40 AM TUNNEL WORKER Respiratory Rate 18 04/20/2022 12:3 3 PM TUNNEL WORKER Oxygen Saturation 99% 04/20/2022 12: 33 PM TUNNEL WORKER Inhaled Oxygen Concentration - - Weight 88.9 kg (195 lb 15.8 oz) 04/20/2022 8:35 AM TUNNEL WORKER Height 157.5 cm (5' 2 ) 04/20/2022 8:35 AM TUNNEL WORKER Body Mass Index 35.85 04/20/2022 8:35 AM TUNNEL WORKER Plan of Treatment Not on file Insurance [facility] Care Teams Central Sterile Supply Technician Relationship Specialty Start Date End Date Magy Medina NP PCP - General 05/10/19
--- OUTSIDE RECORDS SUMMARY | 2024-07-27 11:45 | XMS_ITS | Encounter Summary ---
Author Organization [facility] Care Team Providers Care Boat Motor Mechanic Name Role Phone Magy Medina [place] Primary Care Provider [phone] Encounter Details Date Type Department Care Team (Latest Contact Info) Description 03/07/2015 Orders Only [facility]INCONV Provider, MD Barry [address] [place] [id number] Social History Tobacco Use Types Packs/Day Years Used Date Smoking Tobacco: Never Assessed Comments Unknown Sex and Gender Information Value Date Recorded Sex Assigned at Not on file Legal Sex Female 6:43 PM WASTE RECYCLER Gender Identity Not on file Sexual Orientation [...] the result is from a facility outside [facility] . 04/20/2022 04/20/2022 04/30/2022 3:05 AM WASTE RECYCLER Influenza, adult 04/20/2022 04/20/2022 04/27/2022 3:05 AM WASTE RECYCLER documented as of this encounter Care Teams Boat Motor Mechanic Relationship Specialty Start Date End Date Magy Medina NP PCP - General 05/10/19 documented as of this encounter
--- OUTSIDE RECORDS SUMMARY | 2024-07-27 11:45 | XMS_ITS | Clinical Summary ---
Author Organization [facility] Address [address] [place] [phone] Care Team Providers Care Institutional Cook Name Role Phone Lissypoonammario Magy [place] Primary Care Provider [phone] Allergies Active Allergy Reactions Criticality Noted Date [...] on file Legal Sex Female 6:43 PM RASPBERRY CHECKER Gender Identity Not on file Sexual Orientation Not on file Obstetrics History Last Filed Vital Signs Vital Sign Reading Time Taken Comments Blood Pressure 119/85 04/20/2022 12:33 PM RASPBERRY CHECKER Pulse 88 04/20/2022 12:33 PM RASPBERRY CHECKER Temperature 37.3 C (99.2 F) 04/20/2022 10:40 AM RASPBERRY CHECKER Respiratory Rate 18 04/20/2022 12:3 3 PM RASPBERRY CHECKER Oxygen Saturation 99% 04/20/2022 12: 33 PM RASPBERRY CHECKER Inhaled Oxygen Concentration - - Weight 88.9 kg (195 lb 15.8 oz) 04/20/2022 8:35 AM RASPBERRY CHECKER Height 157.5 cm (5' 2 ) 04/20/2022 8:35 AM RASPBERRY CHECKER Body Mass Index 35.85 04/20/2022 8:35 AM RASPBERRY CHECKER Plan of Treatment Health Maintenance Due Date [...] age to complete this topic Insurance [employer] [facility] Care Teams Institutional Cook Relationship Specialty Start Date End Date Magy Medina NP PCP - General 05/10/19
--- OUTSIDE RECORDS SUMMARY | 2024-07-27 11:45 | XMS_ITS | Clinical Summary ---
Author Organization [facility] Address [address] [place] [address] Care Team Providers Care Camera Person Name Role Phone Kristopher Askew MD Primary Care Provider [phone] Allergies Active Allergy Reactions Criticality Noted Date Comments Latex Rash Medium 02/14/2017 Medications albuterol sulfate HFA 108 (90 BASE) MCG/ACT inhaler Inhale 2 puffs into the lungs every 6 (six) hours as needed for Wheezing. Active hydroCHLOROthiazi de (HYDRODIURIL) 25 MG tablet Take 1 tablet (25 mg total) by mouth every morning. 30 tablet 08/02/19 23 Active vitamin, low iron, 27-0.8 MG tablet Take 1 tablet by mouth daily for 30 days. 30 tablet 07/15/19 25 2024 Active ondansetron (ZOFRAN-ODT) 4 MG disintegrating tablet Take 1 tablet (4 mg total) by mouth every 8 (eight) hours as needed. 20 tablet 07/15/19 25 Active ibuprofen 600 MG tablet Take 1 tablet (600 mg total) by mouth every 8 (eight) hours as needed for Pain. 30 tablet 12/18/19 18 2024 Discontin ued(Pregn juliann) meloxicam (MOBIC) 15 MG tablet Take 1 tablet (15 mg total) by mouth daily. 20 tablet 05/22/20 23 2024 Discontin ued(Pregn juliann) diclofenac EC (VOLTAREN) 50 MG tablet Take 1 tablet (50 mg total) by mouth 2 (two) times daily. 60 tablet 07/08/19 24 2024 Discontin ued(Pregn juliann) cyclobenzaprine (FLEXERIL) 10 MG tablet Take 1 tablet (10 mg total) by mouth 3 (three) times daily as needed for Muscle Spasms. 16 tablet 07/08/19 24 2024 Discontin ued(Pregn juliann) hydrocortisone (ANUSOL-HC) [address] 1 suppository (25 mg total) rectally 2 (two) times daily for 10 days. 20 suppository 07/15/19 25 2024 Active Problems Problem Noted Date Diagnosed Date Lumbar radiculopathy 06/16/2017 Estimated Date of Delivery Comme nts Yes 03/01/2025 Encounters Date Type Department Care Team Description 07/15/2024 10:13 AM INSULATION MANAGER - 07/15/2024 1:58 PM INSULATION MANAGER Emergency [facility] [place] [address] Federica Vargas NP Abdominal Pain ; Rectal Pain Discharge Disposition: Home or Self Care (Routine Discharge) 07/15/2024 Travel from Last 3 Months Immunizations Name Administration Dates Next Due Tdap (Boostrix) 01/11/2024 Family History Medical History Relation Comments Asthma Mother Diabetes Mother Hypertension Mother Stroke Mother Relation Status Comments Mother Social History Tobacco Use Types Packs/Day Years Used Date Smoking Tobacco: Never Smokeless Tobacco: Never Alcohol Use Standard Drinks/Week Comments No 0 (1 standard drink = 0.6 oz pur e alcohol) Estimated Date of Delivery Comme nts Yes 03/01/2025 Sex and Gender Information Value Date Recorded Sex Assigned at Female 07/15/2024 9:45 AM INSULATION MANAGER Legal Sex Female 7:19 PM CDT Gender Identity Not on file Sexual Orientation Not on file Last Filed Vital Signs Vital Sign Reading Time Taken Comments Blood Pressure 130/78 07/15/2024 1:57 PM INSULATION MANAGER Pulse 80 07/15/2024 1:57 PM INSULATION MANAGER Temperature 36.7 C (98 F) 07/15/2024 9:37 AM INSULATION MANAGER Respiratory Rate 18 07/15/2024 1:57 PM INSULATION MANAGER Oxygen Saturation 100% 07/15/2024 1:57 PM INSULATION MANAGER Inhaled Oxygen Concentration - - Weight 77.1 kg (170 lb) 07/15/2024 9:37 AM INSULATION MANAGER Height 154.9 cm (5' 1 ) 07/15/2024 9:37 AM INSULATION MANAGER Body Mass Index 32.12 07/15/2024 9:37 AM INSULATION MANAGER Plan of Treatment Health Maintenance Due Date [...] ( season) 2024 Influenza Adult (#1) 2024 RSV Immunization or 60+ Years (1 - Risk 1-dose series) 02/07/2025 DTaP, Tdap and Td Vaccines (7 - Td or Tdap) 01/10/2034 01/11/2024, 04/01/1998, 04/16/1994, Additional history exists HPV Vaccines Completed 10/28/2007, 06/09, 04/28/2007 Meningococcal B Vaccine Aged Out No l onger eligible based on patient's age to complete this topic Meningococcal Vaccine Aged Out No latoya brennan eligible based on patient's age to complete this topic Pneumococcal Vaccine: Pediatrics (0 to 5 Years) and At-Risk Patients (6 to 64 Years) Aged Out No longer eligible based on patient's age to complete this topic RSV Immunizations Under 20 Months Aged Out No longer eligible based on patient's age to complete this topic Procedures Procedure Name Priority Date/Time Associated Diagnosis Comments US OB TRANSVAG STAT 07/15/2024 12:29 PM INSULATION MANAGER POCT URINE (BACK OFFICE) STAT 07/15/2024 10:48 AM INSULATION MANAGER HC URINALYSIS AUTO W/O MICRO STAT 07/15/2024 10:45 AM INSULATION MANAGER COMPREHENSIVE METABOLIC PANEL STAT 07/15/2024 10:39 AM INSULATION MANAGER CBC W/DIFF AUTOMATED STAT 07/15/2024 10:39 AM INSULATION MANAGER HCG QUANT (SERUM)-CHORIONIC GONADOTROPIN STAT 07/15/2024 10:37 AM INSULATION MANAGER from Last 3 Months Results * US OB TRANSVAG (07/15/2024 12:29 PM INSULATION MANAGER) Anatomical Region Laterality Modality Abdomen, Pelvis Ultrasound 07/15/2024 12:5 2 PM INSULATION MANAGER Impressions 07/15/2024 1:07 PM INSULATION MANAGER IMPRESSION: 1. Intrauterine gestational sac, yolk sac, and pole. Estimated gestation based on crown-rump length measurement is 6 weeks 5 days +/- 4 days with estimated date of delivery 03/05/2025. This varies by 4 days from reported clinical estimate of gestational age. 2. Left ovarian corpus lutein. 3. Probable uterine leiomyomas of 1.3 cm, 1.3 cm, and 0.8 cm. Ordered By: FEDERICA VARGAS Interpreted By: Jay Hernandez, 07/15/2024 12:52 PM Narrative 07/15/2024 1:07 PM INSULATION MANAGER [address] [address] IMAGING STUDIES: US OB TRANSVAG DATE: 07/15/2024 11:48 AM HISTORY: 33-year-old female. LMP 05/25/2024 which would correspond to 7 week 2 day gestation and estimated delivery 03/01/2025. HCG of 20,995 today. Reported history of one miscarriage and two elective abortions. Was reportedly scheduled for hysterectomy when she found she was . COMPARISON: Ultrasound pelvis 11/24/2019. DISCUSSION: Endovaginal pelvic ultrasound. Anteverted uterus is 10.9 x 6.3 x 7.5 cm. Intrauterine gestational sac, yolk sac, and pole. Yolk sac diameter 3.1 mm. Mean crown-rump length of 7.5 mm which would correspond to 6 week 5 day +/- 4 day gestation with estimated date of delivery 03/05/2025. Estimated heart rate of 138 bpm by M-mode ultrasound. Multiple hypodense uterine lesions most suggestive of leiomyomas with the largest 1.1 x 1 x 1.3 cm in the left uterus. Additional 1.3 cm and 0.8 cm likely leiomyomas. Right ovary 3 x 1.5 x 2.6 cm. Left ovary 5.3 x 3.3 x 2.9 cm. 3.3 x 2.9 x 2.9 cm probable corpus luteum with 2.5 x 1.8 x 2.1 cm anechoic fluid component. Color Doppler and pulse Doppler imaging bilateral ovaries and adnexa within normal limits. No pelvic free fluid. Procedure Note Jay Hernandez MD - 07/15/[address] [address] IMAGING STUDIES: US OB TRANSVAGDATE: 07/15/2024 11:48AM HISTORY: 33-year-old female. LMP 05/25/2024 which would correspondto 7 week 2 day gestation and estimated delivery 03/01/2025. HCG of 20,995today. Reported history of one miscarriage and two elective abortions. Wasreportedly scheduled for hysterectomy when she found she was . COMPARISON: Ultrasound pelvis 11/24/2019. DISCUSSION: Endovaginal pelvic ultrasound. Anteverted uterus is 10.9 x 6.3 x 7.5 cm. Intrauterine gestational sac,yolk sac, and pole. Yolk sac diameter 3.1 mm. Mean crown-rump lengthof 7.5 mm which would correspond to 6 week 5 day +/- 4 day gestation withestimated date of delivery 03/05/2025. Estimated heart rate of 138bpm by M-mode ultrasound. Multiple hypodense uterine lesions most suggestive of leiomyomas with thelargest 1.1 x 1 x 1.3 cm in the left uterus. Additional 1.3 cm and 0.8 cmlikely leiomyomas. Right ovary 3 x 1.5 x 2.6 cm. Left ovary 5.3 x 3.3 x 2.9 cm. 3.3 x 2.9 x 2.9 cm probable corpus luteumwith 2.5 x 1.8 x 2.1 cm anechoic fluid component. Color Doppler and pulse Doppler imaging bilateral ovaries and adnexawithin normal limits. No pelvic free fluid. IMPRESSION: 1. Intrauterine gestational sac, yolk sac, and pole. Estimatedgestation based on crown-rump length measurement is 6 weeks 5 days +/- 4days with estimated date of delivery 03/05/2025. This varies by 4 days fromreported clinical estimate of gestational age. 2. Left ovarian corpus lutein. 3. Probable uterine leiomyomas of 1.3 cm, 1.3 cm, and 0.8 cm. Ordered By: FEDERICA VARGAS Interpreted By: Jay Hernandez, 07/15/2024 12:52 PM Federica Vargas CLAIM REPRESENTATIVE ULTRASOUND Final Result * (ABNORMAL) POCT urine (07/15/2024 10:48 AM INSULATION MANAGER) Pathologist [facility] URINE HCG TEST POSITIVE(A ) Internal Control: VALID Federica Vargas CLAIM REPRESENTATIVE POINT OF CARE TEST ORDERABLES Final Result * URINALYSIS (07/15/2024 10:45 AM INSULATION MANAGER) Pathologist [facility] SPECIMEN TYPE URINE CLEAN CATCH 07/15/2024 10:48 AM INSULATION MANAGER [facility] COLOR (U) YELLOW 07/15/2024 10:55 AM INSULATION MANAGER [facility] TRANSPARENCY CLEAR 07/15/2024 10:55 AM [facility] SPECIFIC GRAVITY (U) 1.029 1.001 - 1.030 07/15/2024 10:55 AM INSULATION MANAGER [facility] U PH 7.5 5.0 - 9.0 07/15/2024 10:55 AM [facility] LEUKOCYTES (U) NEGATIVE NEGATIVE 07/15/2024 10:55 AM INSULATION MANAGER [facility] NITRITES NEGATIVE NEGATIVE 07/15/2024 10:55 AM [facility] PROTEIN RANDOM (U) 10 <30 MG/DL 07/15/2024 10:55 AM [facility] GLUCOSE (U) NORMAL NORMAL MG/DL 07/15/2024 10:55 AM [facility] KETONES MG/DL (U) NEGATIVE NEGATIVE MG/DL 07/15/2024 10:55 AM [facility] UROBILINOGEN NORMAL NORMAL MG/DL 07/15/2024 10:55 AM [facility] BILIRUBIN (U) NEGATIVE NEGATIVE MG/DL 07/15/2024 10:55 AM [facility] BLOOD (U) NEGATIVE NEGATIVE 07/15/2024 10:55 AM [facility] URINE SPECIMEN OBTAINED BY CLEAN CATCH PROCEDURE / Unknown 07/15/2024 10:45 AM [facility] us Federica Vargas CLAIM REPRESENTATIVE URINE ORDERABLES Final Result [facility] [address] [place] [address], * (ABNORMAL) COMPREHENSIVE METABOLIC PANEL (07/15/2024 10:39 AM INSULATION MANAGER) GLUCOSE 97 70 - 99 MG/DL 07/15/2024 11:30 AM [facility] BUN 9 7 - 18 MG/DL 07/15/2024 11:30 AM [facility] CREATININE S/P/B 0.64 0.55 - 1.02 MG/DL 07/15/2024 11:30 AM [facility] SODIUM S/P/B 136 136 - 145 MMOL/L 07/15/2024 11:30 AM [facility] POTASSIUM S/P/B 3.4(L) 3.5 - 5.1 MMOL/L 07/15/2024 11:30 AM [facility] CHLORIDE S/P/B 105 97 - 115 MMOL/L 07/15/2024 11:30 AM [facility] CO2 24.0 21 - 32 MMOL/L 07/15/2024 11:30 AM [facility] CALCIUM S/P/B 9.3 8.5 - 10.1 MG/DL 07/15/2024 11:30 AM [facility] BILIRUBIN TOTAL S/P/B 0.3 0.2 - 1.2 MG/DL 07/15/2024 11:30 AM [facility] Comment: THIS ASSAY IS NOT RECOMMENDED FOR PATIENTS UNDERGOING TREATMENT WITH ELTROMBOPAG DUE TO THE POTENTIAL FOR FALSELY ELEVATED RESULTS. TOTAL PROTEIN S/P/B 7.9 6.4 - 8.2 G/DL 07/15/2024 11:30 AM [facility] ALBUMIN S/P/B 3.7 3.4 - 5.0 G/DL 07/15/2024 11:30 AM [facility] AST 10(L) 15 - 37 U/L 07/15/2024 11:30 AM [facility] ALT 17 14 - 55 U/L 07/15/2024 11:30 AM [facility] ALKALINE PHOSPHATASE S/P/B 51 50 - 136 U/L 07/15/2024 11:30 AM [facility] ANION GAP 7.0 2 - 10 MMOL/L 07/15/2024 11:30 AM [facility] BUN CREATININE RATIO 14.1 6 - 26 07/15/2024 11:30 AM [facility] A/G RATIO 0.9(L) 1.0 - 2.0 RATIO 07/15/2024 11:30 AM [facility] GFR ESTIMATE >90 >90 ML/MIN/1.7 3 M2 07/15/2024 11:30 AM [facility] Comment: NOTE: eGFR is not calculated for patients <18 years of age or gender unknown. This is an estimated GFR calculation using the new CKD EPI creatinine equation without race and so does not require a correction factor for race. This estimated GFR should not be used for calculating drug doses. 07/15/2024 10:3 9 AM INSULATION MANAGER us Federica Vargas NP LABORATORY Final Result [facility] [address] [place] [address], * CBC W/DIFF AUTOMATED (07/15/2024 10:39 AM INSULATION MANAGER) WBC 5.43 4.5 - 11.0 x10'3/uL 07/15/2024 10:52 AM [facility] RBC 4.45 4.20 - 5.40 x10'6/uL 07/15/2024 10:52 AM [facility] HGB 12.9 12.0 - 16.0 G/DL 07/15/2024 10:52 AM [facility] HCT 39.6 38.0 - 48.0 % 07/15/2024 10:52 AM [facility] MCV 89.0 81.0 - 99.0 FL 07/15/2024 10:52 AM [facility] MCH 29.0 27.0 - 31.0 PG 07/15/2024 10:52 AM [facility] MCHC 32.6 32.0 - 36.0 G/DL 07/15/2024 10:52 AM [facility] RDW 12.3 11.5 - 14.5 % 07/15/2024 10:52 AM [facility] PLT 273 130 - 400 x10'3/uL 07/15/2024 10:52 AM [facility] MPV 10.0 9.3 - 12.2 FL 07/15/2024 10:52 AM [facility] DIFFERENTIAL TYPE AUTOMATED DIFFERENTIAL 07/15/2024 10:52 AM [facility] NEUTROPHILS % 50.6 % 07/15/2024 10:52 AM [facility] LYMPHOCYTES % 36.3 % 07/15/2024 10:52 AM [facility] MONOCYTES % 8.3 % 07/15/2024 10:52 AM [facility] EOSINOPHILS 3.5 % 07/15/2024 10:52 AM [facility] BASOPHILS 0.9 % 07/15/2024 10:52 AM [facility] IMMATURE GRANS % 0.4 % 07/15/19 10:52 AM [facility] ABS. NEUTROPHILS 2.75 1.80 - 7.70 x10'3/uL 07/15/2024 10:52 AM [facility] ABS. LYMPHOCYTES 1.97 1.00 - 4.80 x10'3/uL 07/15/2024 10:52 AM [facility] ABS. MONOCYTES 0.45 0.24 - 0.86 x10'3/uL 07/15/2024 10:52 AM [facility] ABS. EOSINOPHILS 0.19 0.04 - 0.36 x10'3/uL 07/15/2024 10:52 AM [facility] ABS. BASOPHILS 0.05 0.01 - 0.08 x10'3/uL 07/15/2024 10:52 AM [facility] ABS. IMMATURE GRANULOCYTES 0.02 0.00 - 0.49 x10'3/uL 07/15/2024 10:52 AM INSULATION MANAGER [facility] 07/15/2024 10:3 9 AM INSULATION MANAGER Federica Vargas CLAIM REPRESENTATIVE LABORATORY Final Result Performing Organization Address [facility] Co de Phone Number [facility] [address] [place] [address], [place] [phone] * Quantitative HCG (07/15/2024 10:37 AM INSULATION MANAGER) HCG QUANTITATIVE 20,995 MIU/ML 07/15/19 11:22 AM INSULATION MANAGER [facility] Comment: WEEKS OF REFERENCE RANGES Non- female < or = 2 0.2 - 1 5 - 50 1 - 2 50 - 500 2 - 3 100 - 5000 3 - 4 500 - 10,000 4 - 5 1000 - 50,000 5 - 6 10,000 - 100,000 6 - 8 15,000 - 200,000 2 - 3 MONTHS 10,000 - 100,000 07/15/2024 10:3 7 AM INSULATION MANAGER Federica Vargas NP LABORATORY Final Result Performing Organization Address [facility] Co de Phone Number [facility] [address] [place] [address], [place] [phone] from Last [address] [place] [address] [place] [address] Care Teams Camera Person Relationship Specialty Start Date End Date Kristopher Askew MD [address] [place], [place] [id number] PCP - General FAMILY PRACTICE 01/11/24
--- OUTSIDE RECORDS SUMMARY | 2024-07-27 11:45 | XMS_ITS | Clinical Summary ---
Author Organization [facility] Address [address] [place] [address] Care Team Providers Care Truck Assembler Name Role Phone Kristopher Askew MD Primary Care Provider [phone] Source Comments [facility],non-owned Affiliates and Associated Physician Practices is amultiple site organization consisting of ambulatory clinics and hospital sitesin [place], [place], [place] and [place]. This disclosure is being madepursuant to the Care Everywhere program and may not contain all information available regarding this patient. Last updated 18.[facility] Allergies Active Allergy Reactions Criticality Noted Date [...] 86 01/21/2024 6:10 PM CDT Temperature 36.8 C (98.3 F) 01/21/2024 6:10 PM CDT Respiratory Rate 18 01/21/2024 6:10 PM CDT [...] of 3 - 19+ 3-dose series) 10/31/2010 COVID-19 VACCINE (2 - 2023-2 5 season) 2024 09/23/2022 INFLUENZA VACCINE (#1) 2024 2, 04/28/2007 DEPRESSION SCREENING 06/09/2024 ZOSTER VACCINE (1 of 2) 10/31/2041 HIB VACCINE Aged Out No longer eligi ble based on patient's age to complete this topic HPV VACCINE Aged Out No longer eligi ble based on patient's age to complete this topic MENINGOCOCCAL (Group B) VACCINE Aged Out No longer eligible b ased on patient's age to complete this topic MENINGOCOCCAL VACCINE Aged Out No latoya brennan eligible based on patient's age to complete this topic PNEUMOCOCCAL VACCINE Aged Out No long er eligible based on patient's age to complete this topic Care Teams Truck Assembler Relationship Specialty Start Date End Date Kristopher Askew MD [address] [place] [address] PCP - General Family Medicine 09/30/23
--- OUTSIDE RECORDS SUMMARY | 2024-07-27 11:45 | XMS_ITS | Patient Health Summary ---
Author Organization [facility] Address [address] [place] [address] Care Team Providers Care Dance Critic Name Role Phone Kristopher Askew MD Primary Care Provider [phone] Note from [facility],non-owned Affiliates and Associated Physician Practices is amultiple site organization consisting of ambulatory clinics and hospital sitesin [place], [place], [place] and [place]. This disclosure is being madepursuant to the Care Everywhere program and may not contain all information available regarding this patient. Last updated 18.[facility] [employer] Allergies * Latex(Rash) -Medium Criticality Medications * [...] 01/21/2024 6:48 PM CDT Arcelia Vásquez APRN-CNP 01/21/2024 6:50 PM Suture Removal Date/Time: 01/21/2024 6:48 PM Performed by: Arcelia Vásquez APRN-CNP Authorized by: Arcelia Vásquez APRN-CNP Consent: Consent obtained: Verbal Consent given by: Patient Risks, benefits, and alternatives were discussed: yes Risks discussed: Bleeding, pain and wound separation Alternatives discussed: No treatment and delayed treatment Inman protocol: Immediately prior to procedure, a time out was called: yes Location: Location: Lower extremity Lower extremity location: Toe Toe location: L third toe Procedure details: Wound appearance: No signs of infection, good wound healing, nonpurulent, tender and clean Number of sutures removed: 2 Post-procedure details: Post-removal: Dressing applied Procedure completion: Tolerated well, no immediate complications Arcelia RODRIGUEZ PROCEDURE/MIN OR SURGICAL ORDERABLES * CT CERVICAL SPINE WO CONTRAST (09/30/2023 8:13 AM CDT) Anatomical Region Laterality Modality Spine Computed Tomogra phy 09/30/2023 8:24 AM CDT Impressions 09/30/2023 8:25 AM CDT IMPRESSION: Loss of normal lordosis No fracture > Interpreting Provider: Robb Williamson MD on 09/30/2023 8:25 AM Narrative 09/30/2023 8:25 AM CDT PROCEDURE: CT CERVICAL SPINE WO CONTRAST DATE/TIME [...] Robb Williamson MD on 09/30/2023 8:25 AM Bbee Martin MD CT ORDERABLES * CT HEAD WO CONTRAST (09/30/2023 8:13 AM CDT) Anatomical Region Laterality Modality Head Computed Tomogra phy 09/30/2023 8:23 AM CDT Impressions 09/30/2023 8:24 AM CDT IMPRESSION: No acute intracranial pathology > Interpreting Provider: Robb Williamson MD on 09/30/2023 8:24 AM Narrative 09/30/2023 8:24 AM CDT PROCEDURE: CT HEAD WO CONTRAST DATE/TIME OF [...] Bebe Martin MD CT ORDERABLES Care Teams Dance Critic Relationship Specialty Start Date End Date Kristopher Askew MD [address] [place] [address] PCP - General Family Medicine 09/30/23
--- OUTSIDE RECORDS SUMMARY | 2024-07-27 11:45 | XMS_ITS | Referral Summary ---
Author Organization [facility] Address [address] [place] [address] Care Team Providers Care Regulatory Manager Name Role Phone Kristopher Askew MD Primary Care Provider [phone] Source Comments [facility],non-owned Affiliates and Associated Physician Practices is amultiple site organization consisting of ambulatory clinics and hospital sitesin [place], [place], [place] and [place]. This disclosure is being madepursuant to the Care Everywhere program and may not contain all information available regarding this patient. Last updated 18.[facility] [employer] Allergies Active Allergy Reactions Criticality Noted Date [...] of Treatment Not on file Care Teams Regulatory Manager Relationship Specialty Start Date End Date Kristopher Askew MD [address] [place] [address] PCP - General Family Medicine 09/30/23
[2024-07-27 12:05] LABS: Hematocrit 39.6 % (37.0-47.0); Hemoglobin 12.8 g/dL (12.0-15.0); Mean Corpuscular HGB Conc 32.3 g/dl (32-36); Mean Corpuscular Hemoglobin 29.1 pg (26-34); Mean Platelet Volume 9.7 fl (7.4-10.4); Platelet Count Result 332 k/mm3 (150-375); Red Cell Distribution Width 12.6 % (11.5-14.5); White Blood Count 5.7 K/mm3 (4.5-10.0)
[2024-07-27 12:19] LABS: Hemoglobin A1C 5.5 % (<5.7)
[2024-07-27 12:21] LABS: Alanine Aminotransferase 17 U/L (6-35); Albumin Level 4.4 g/dL (3.5-5.1); Alkaline Phosphatase 57 U/L (38-126); Anion Gap 13 mmol/L (4-12); Aspartate Amino Transferase 22 U/L (14-36); Bilirubin,Total 0.4 mg/dL (0.2-1.3); Blood Urea Nitrogen 6 mg/dL (7-17); Calcium 9.3 mg/dL (8.4-10.2); Carbon Dioxide 24 mmol/L (22-30); Chloride 104 mmol/L (98-107); Cholesterol 187 mg/dL (0-200); Estimated Glomerular Filt Rate > 60; Glucose 88 mg/dL (65-110); HDL Direct 59 mg/dL; Potassium 3.4 mmol/L (3.4-5.0); Sodium 141 mmol/L (137-145); Triglycerides 51 mg/dL (<150)
[2024-07-27 12:23] LABS: Iron 84 ug/dL (37-170)
[2024-07-27 12:30] LABS: LDL Cholesterol Direct 105 mg/dL
[2024-07-27 12:32] LABS: Percent Iron Saturation 25 % (20-50)
[2024-07-27 12:34] LABS: Vitamin D 25 Hydroxy 23.7 ng/mL
== END 2024-07-27 11:44 | disposition home or self-care (01) ==
LOC: ANHLAB 11:44
PROVIDERS: PCP Family Medicine; Visit Provider Family Medicine
DX: R73.03 Prediabetes (principal); I10 Essential (primary) hypertension; R53.83 Other fatigue; E66.9 Obesity, unspecified; G43.909 Migraine, unspecified, not intractable, without status migrainosus; N92.0 Excessive and frequent menstruation with regular cycle
CPT/HCPCS: 36415; 80053; 80061; 82306; 82607; 82728; 83036; 83540; 83550; 84443; 85027

== ENCOUNTER 2024-08-10 08:16 | Day surgery (SDC) | payer OTHER, SELFPAY ==
--- NOTE | 2024-08-10 09:01 | PM.HPGS ---
History of Present Illness History of Present Illness Consent: Risks, benefits, and alternatives have been discussed and questions answered. Patient agrees to proceed with procedure. Chief complaint: Cervical spondylosis, chronic cervicalgia Narrative: Jenny Johnson is a 33 year old female with chronic, recalcitrant and disabling bilateral craniocervical neck pain secondary to degenerative spondylosis with failure to respond to aggressive conservative measures including PT, oral and topical analgesics, opioid and nonopioid analgesics, rest, time and activity/behavioral modification over the past 1-2 years who presents for diagnostic/prognostic medial branch blocks of the bilateral C2-3, C3, C4 medial branches(#1) addressing the bilateral C2-3, C3-4 facet joints under fluoroscopic guidance and with contrast control. Review of Systems Review of Systems: Patient denies any new infectious, allergic, cardiopulmonary, neurologic or constitutional symptoms or changes in activity tolerance or exercise capacity including new or progressive SOB/AL, peripheral edema, productive cough, dysuria, nausea/vomiting, diarrhea, weight change, fevers/chills/night sweats, new or progressive neurologic deficit, cognitive or mood changes since last seen, except as documented in the HPI. All systems reviewed & are unremarkable except as noted in HPI and below PMFSH Past Medical History Medical History (Updated 08/10/24 @ 09:03 by Maykel Nguyen MD) Chronic pain Elective COPD (chronic obstructive pulmonary disease) Hypertension Asthma Scoliosis Pre-diabetes Surgical History Surgical History Previous back surgery H/O: Family History Family History Mother Hypertension Asthma Heart disease Diabetes mellitus Acute myocardial infarction Father Acute myocardial infarction Heart disease Grandparent Asthma Diabetes mellitus Hypertension Heart disease Social History Social History Smoking status: Never smoker Second hand tobacco smoke exposure: No Alcohol intake: never Substance use: never Substance use type: does not use Living arrangements: with family Spiritual care concerns: No Meds Home Medications and Allergies Home Medications ?Medication ?Instructions ?Recorded ?Confirmed ?Type albuterol sulfate 90 mcg/actuation 2 puff inhalation Q6H PRN 08/07/23 07/23/24 Rx aerosol inhaler bronchospasm #8.5 grams cetirizine 10 mg tablet 10 mg PO DAILY 08/07/23 07/23/24 History diclofenac sodium 50 mg 50 mg PO DAILY 08/07/23 07/23/24 History tablet,delayed release epinephrine 0.3 mg/0.3 mL 0.3 mg (0.3 mL) IM Q4H PRN 08/07/23 07/23/24 Rx injection, auto-injector (EpiPen anaphylaxis #2 ea 2-Deyvi) fluticasone furoate 50 1 inh inhalation Q24H 08/07/23 07/23/24 History mcg/actuation blister powder for inhalation cyclobenzaprine 10 mg tablet 10 mg PO TID #60 tabs 12/10/23 07/23/24 Rx sumatriptan succinate 50 mg tablet See Rx Instructions PO .COMPLEX 03/25/24 07/23/24 Rx #30 tabs topiramate 50 mg tablet 50 mg PO BID #90 tabs 03/25/24 07/23/24 Rx phentermine 37.5 mg capsule 37.5 mg PO DAILY #30 caps 06/01/24 07/23/24 Rx lactobacillus combination no.9 4 4,000 mmu cells PO DAILY 07/23/24 07/23/24 History billion cell capsule (Adult 50 Plus Probiotic) multivitamin (Daily Multi-Vitamin 1 tablet PO DAILY 07/23/24 07/23/24 History tablet) zolpidem 5 mg tablet (Ambien) 5 mg PO QHS PRN insomnia #3 tabs 07/27/24 07/27/24 Rx cholecalciferol (vitamin D3) 1,250 1,250 mcg PO WEEKLY #14 tabs 07/29/24 Rx mcg (50,000 unit) tablet buprenorphine 5 mcg/hour weekly 1 patch transdermal Q7D chronic 07/30/24 Rx transdermal patch pain 28 days #4 ea Allergies Allergy/AdvReac Type Severity Reaction Status Date / Time No Known Allergies Allergy Verified 07/27/24 10:47 Exam Narrative: The patient's physical exam is essentially unchanged from prior examination on 06/21/2024. Specifically, patient demonstrates normal lung capacity, tidal volume and respiratory rate without wheezes, crackles, rales or rubs. Heart rate and rhythm are regular without murmurs, gallops or rubs. No JVD. Pulses 2+ globally without increasing peripheral edema. AAOx3 with no evidence of confusion, intoxication or altered mental state, NC/AT without acute distress or altered consciousness. Speech, cognition, mood, insight and judgment at baseline and within normal limits. Assessment and Plan Assessment and plan (1) Cervicalgia: Code(s): M54.2 - Cervicalgia Status: Acute Assessment and Plan: Proceed as planned with diagnostic/prognostic medial branch blocks of the bilateral C2-3, C3, C4 medial branches(#1) addressing the bilateral C2-3, C3-4 facet joints under fluoroscopic guidance and with contrast control. (2) Cervical spondylosis: Code(s): M47.812 - Spondylosis without myelopathy or radiculopathy, cervical region Status: Acute
--- NOTE | 2024-08-10 09:04 | WPDHPUPDATE1 ---
History and Physical Update Update Date/Time: 08/10/24 09:04 History and Physical has been reviewed, including an updated exam of the patient. There are NO changes in the patient's condition. Risks, benefits, and alternatives have been discussed and questions answered. Patient agrees to proceed with procedure.
--- NOTE | 2024-08-10 09:05 | W.PM.PROC2 ---
Procedure Note - Detailed Date of Procedure 08/10/24 Pre-op Diagnosis Cervical spondylosis, chronic cervicalgia Post-op Diagnosis Same Procedure Performed Diagnostic bilateral Cervical Medial Branch Blocks at C2-3, C3, C4 Blocking the bilateral C2-3, C3-4 Facet Joints Under Fluoroscopic Guidance and with Contrast Control (4 levels blocked). Surgeon Maykel Nguyen MD Doctor Of Naprapathy None. Anesthesia Local Description of Procedure INFORMED CONSENT: Risks, benefits and alternatives to the procedure were discussed in detail with the patient who expressed explicit understanding and consent to proceed. Patient was informed verbally and in written form regarding the risks associated with the procedure including the low risk of serious infection, bleeding/bruising, allergic reaction, nerve or organ injury, paralysis, procedural site pain or discomfort, worsening pain and/or mobility, failure to treat and/or disfigurement. The patient expressed explicit understanding and consent to proceed. All materials required for the procedure were available prior to procedure start. Site and side was marked prior to procedure and confirmed in the presence of the patient. PROCEDURE IN DETAIL: The patient was brought to the procedural suite and placed in the left lateral decubitus position with head stabilized. Patient was made comfortable with use of pillows under the head and between the knees and ankles. Skin overlying the injection site on the affected side was prepared broadly with tinted 3ml ChloraPrep applicator and draped in a sterile manner. Aseptic technique was used throughout. The endplates of the vertebral bodies at the site(s) of interest were aligned in the lateral fluoroscopic view relative to the patient. Image was optimized for visualization of the pars interarticularis at each target site. Local anesthesia was established by infiltration with approximately 5 mL of 1% lidocaine via a 1-1/2 inch 27- gauge needle. A 25-gauge 3.5 inch Quincke spinal needle was advanced until the needle tip contacted the periosteum of the pars interarticularis at the target site, the right C2-3 medial branch. AP view was utilized to confirm the appropriate placement of the needle tip just lateral to the periosteum at the center point of the pars interarticularis. In the lateral view, 0.25 mL of Omnipaque 300 contrast medium was injected after negative aspiration for CSF, blood or other bodily fluid, showing appropriate extra-articular spread of contrast without evidence of intravascular, foraminal or intrathecal placement. A 0.25 mL solution of 0.5% PF bupivacaine was injected after negative repeat aspiration. Appropriate spread of the injectate was confirmed with washout of previously injected contrast. No parasthesias were elicited. Needle was removed completely intact without difficulty. The same procedure was repeated for all additional intended levels/structures treated on the ipsilateral side, the right C3, C4 medial branches with identical methodology modified to compensate for different location, with similar results and no evidence of complication. The same procedure was then repeated for all additional intended levels/structures treated on the contralateral side, the left C2-3, C3, C4 medial branches, with identical methodology and positioning modified to compensate for the contralateral location, with similar results and no evidence of complication. Images were saved and documented in the patient chart. Patient's skin was cleaned and sterile bandage applied. The patient tolerated the procedure well. The patient was transported to the recovery area in stable condition where they were observed for an appropriate amount of time prior to discharge, without evidence of complication. Patient was instructed on the appropriate completion of a pain diary over the next 12-24 hours. The patient was instructed to avoid excessive activity for the next 48 hours, including climbing and frequent use of stairs. Showers only for 48 hours. They were instructed not to drive or operate heavy machinery for 24 hours. They are to monitor for severe headaches, fevers, chills, night sweats, erythema/swelling at the site or any other signs of infection, bleeding/bruising, bowel or bladder changes as well as new pain, weakness or numbness in the upper or lower extremity. Should they notice these changes, they are instructed to call our office immediately or report directly to the nearest Emergency Department if no answer or if after posted office hours. COMPLICATIONS: None. COMMENTS: None. CONTRAST WASTED: 28.5 mL Omnipaque 300. Complications No immediate complications Condition Stable Disposition Same day [facility] Billing Surgery - Charge Forward: Surgery Billing
[2024-08-10 09:26] VITALS: BMI 29.9
[2024-08-10 09:27] VITALS: BP 126/93; PULSE 87; RESP 20; TEMP 36.8; O2SAT 100
[2024-08-10 09:37] VITALS: BP 115/63; PULSE 86; RESP 15; O2SAT 100
[2024-08-10 09:42] VITALS: BP 128/81; PULSE 93; RESP 18; O2SAT 100
[2024-08-10 09:49] VITALS: BP 132/88; PULSE 87; RESP 17; O2SAT 100
[2024-08-10] MEDS: BUPivacaine HCL 0.5% 10 ML AMP 2 ML INFILTRATE (09:55)
[2024-08-10] MEDS: LIDOCAINE 1% PF INJ 5 ML VIAL 8 ML INFILTRATE (09:59)
[2024-08-10 10:00] VITALS: BP 125/93; PULSE 85; RESP 15; O2SAT 100
--- NOTE | 2024-08-10 10:23 | SUR.PHASEII ---
Pt states being dizzy upon arrival to post-op following C2, C3, C4 medial branch block. VSS. Pt tolerating PO intake. Pt states wanting to sit for a couple of minutes. Pt in no apparent distress, call light within reach. Upon discharge pt states no longer feels dizzy and feels normal other than being sore. Pt wheeled out of ASC in no apparent distress. Pain log provided to patient. Pt states understanding of discharge instructions and will call Dr. Nguyen with any concerns.
== END 2024-08-10 10:18 | disposition home or self-care (01) ==
PROVIDERS: PCP Family Medicine; Visit Provider Anesthesiology Pain Medicine
PROC: (CPT 64490; principal; 2024-08-10 10:00)
DX: M47.812 Spondylosis without myelopathy or radiculopathy, cervical region (principal); G89.29 Other chronic pain
CPT/HCPCS: 64490; 64491 ×2; 64492 ×2; 99199

== ENCOUNTER 2024-08-11 10:11 | Outpatient (CLI) | payer OTHER, SELFPAY ==
[2024-08-11 11:08] LABS: Beta HCG Quantitative 25.97 mIU/ML
--- OUTSIDE RECORDS SUMMARY | 2024-08-11 11:16 | XMS_ITS | Clinical Summary ---
Author Organization [facility] [employer] Address [address] [place] [address] Care Team Providers Care Yeast Pumper Name Role Phone Kristopher Askew MD Primary Care Provider [phone] Source Comments [facility],non-owned Affiliates and Associated Physician Practices is amultiple site organization consisting of ambulatory clinics and hospital sitesin [place], [place], [place] and [place]. This disclosure is being madepursuant to the Care Everywhere program and may not contain all information available regarding this patient. Last updated 18.[facility] [employer] Allergies Active Allergy Reactions Criticality Noted Date [...] age to complete this topic Care Teams Yeast Pumper Relationship Specialty Start Date End Date Kristopher Askew MD [address] [place] [address] PCP - General Family Medicine 09/30/23
--- OUTSIDE RECORDS SUMMARY | 2024-08-11 11:16 | XMS_ITS | Clinical Summary ---
Author Organization [facility] Address [address] [place] [address] Care Team Providers Care Surface Ship Usw Supervisor Name Role Phone Kristopher Askew MD Primary Care Provider [phone] Allergies Active Allergy Reactions Criticality Noted Date [...] mouth every 8 (eight) hours as needed. 10 tablet 08/03/19 25 Active ibuprofen 600 MG tablet Take [...] 10 days. 20 suppository 07/15/19 25 2024 ondansetron (ZOFRAN-ODT) 4 MG disintegrating tablet Take 1 tablet (4 mg total) by mouth every 8 (eight) hours as needed. 20 tablet 07/15/19 25 2024 Discontin ued(Other - Please enter comment in Notes field) Active Problems Problem Noted Date Diagnosed Date Lumbar radiculopathy 06/16/2017 Encounters Date Type Department Care Team Description 08/03/2024 12:30 PM BACK LINE COOK - 08/03/2024 4:50 PM BACK LINE COOK Emergency [facility] [place] [address] Kimberly Trejo PA Abdominal Pain Discharge Disposition: Home or Self Care (Routine Discharge) 08/03/2024 Travel 07/15/2024 10:13 AM BACK LINE COOK - 07/15/2024 1:58 PM [facility] Emergency [facility] [place] [address] Federiac Vargas NP Abdominal Pain ; Rectal Pain [...] Sex Assigned at Female 07/15/2024 9:45 AM BACK LINE COOK Legal Sex Female 7:19 PM CDT Gender Identity Not on file Sexual Orientation Not on file Last Filed Vital Signs Vital Sign Reading Time Taken Comments Blood Pressure 110/83 08/03/2024 4:23 PM BACK LINE COOK Pulse 71 08/03/2024 4:23 PM BACK LINE COOK Temperature 36.3 C (97.3 F) 08/03/2024 12:24 PM BACK LINE COOK Respiratory Rate 14 08/03/2024 4:23 PM BACK LINE COOK Oxygen Saturation 100% 08/03/2024 4:23 PM BACK LINE COOK Inhaled Oxygen Concentration - - Weight 71.7 kg (158 lb) 08/03/2024 12:24 PM BACK LINE COOK Height 154.9 cm (5' 1 ) 08/03/2024 12:24 PM BACK LINE COOK Body Mass Index 29.85 08/03/2024 12:24 PM BACK LINE COOK Plan of Treatment Health Maintenance Due Date [...] US PELVIC NON OB COMP TV STAT 08/03/2024 3:[address] ABD+PEL W CON STAT 08/03/2024 2:50 PM BACK LINE COOK HCG QUANT (SERUM)-CHORIONIC GONADOTROPIN STAT 08/03/2024 12:45 PM BACK LINE COOK URINALYSIS, AUTO, COMPLETE STAT 08/03/2024 12:45 PM BACK LINE COOK COMPREHENSIVE METABOLIC PANEL STAT 08/03/2024 12:45 PM BACK LINE COOK CBC W/DIFF AUTOMATED STAT 08/03/2024 12:45 PM BACK LINE COOK US OB TRANSVAG STAT 07/15/2024 12:29 PM BACK LINE COOK POCT URINE (BACK OFFICE) STAT 07/15/2024 10:48 AM BACK LINE COOK HC URINALYSIS AUTO W/O MICRO STAT 07/15/2024 10:45 AM BACK LINE COOK COMPREHENSIVE METABOLIC PANEL STAT 07/15/2024 10:39 AM BACK LINE COOK CBC W/DIFF AUTOMATED STAT 07/15/2024 10:39 AM BACK LINE COOK HCG QUANT (SERUM)-CHORIONIC GONADOTROPIN STAT 07/15/2024 10:37 AM BACK LINE COOK from Last 3 Months Results * US PELVIC TV NON OB (08/03/2024 3:43 PM BACK LINE COOK) Anatomical Region Laterality Modality Pelvis Ultrasound 08/03/2024 3:43 PM BACK LINE COOK Impressions 08/03/2024 3:47 PM BACK LINE COOK =====IMPRESSION:===== 1. No acute findings within the pelvis. Normal sonographic appearance of the endometrium. 2. Fibroid uterus. Ordered By: KIMBERLY TREJO Interpreted By: Elder King MD, 08/03/2024 3:43 PM Narrative 08/03/2024 3:47 PM BACK LINE COOK [facility] [address] [place], [place] [address] EXAMINATION: Ultrasound pelvis non-OB EXAM DATE/TIME: 08/03/2024 2:51 PM REASON FOR EXAM: lower abdominal pain, recent D&C, hx of ovarian cysts COMPARISON: OB ultrasound 07/15/2024. TECHNIQUE: Ultrasound examination of the pelvis was performed utilizing transvaginal approach to assess grayscale appearance, color doppler flow, and spectral waveform characteristics. FINDINGS: Uterus: 10.4 x 4.8 x 6.3 cm. Nabothian cysts are present. Multiple uterine masses favored to reflect fibroids. For reference, measuring 1.0 x 1.0 x 0.8 cm in the lower uterine segment anteriorly. This is probably intramural with small component of submucosal contact. A second exophytic subserosal fibroid is seen measuring 1.3 x 1.9 x 1.5 cm near the uterine fundus. Endometrial stripe: 5 mm in thickness. No retained solid component is seen. Right ovary: 3.8 x 2.4 x 3.4 cm. Normal echogenicity. Normal blood flow and spectral analysis. No masses. Physiologic follicles within the right ovary. Left ovary: 4.1 x 4.4 x 2.4 cm. Normal echogenicity. Normal blood flow and spectral analysis. No masses. Physiologic follicles within the left ovary, largest measuring up to 1.1 cm. Other findings: No free fluid. Visible bladder not adequately distended. Procedure Note Elder King MD - 08/03/2024 [facility] [address] [place], [place] [address] EXAMINATION: Ultrasound pelvis non-OB EXAM DATE/TIME: 08/03/2024 2:51 PM REASON FOR EXAM: lower abdominal pain, recent D&C, hx of ovariancysts COMPARISON: OB ultrasound 07/15/2024. TECHNIQUE: Ultrasound examination of the pelvis was performed utilizingtransvaginal approach to assess grayscale appearance, color doppler flow,and spectral waveform characteristics. FINDINGS: Uterus: 10.4 x 4.8 x 6.3 cm. Nabothian cysts are present. Multiple uterinemasses favored to reflect fibroids. For reference, measuring 1.0 x 1.0 x0.8 cm in the lower uterine segment anteriorly. This is probablyintramural with small component of submucosal contact. A second exophyticsubserosal fibroid is seen measuring 1.3 x 1.9 x 1.5 cm near the uterinefundus. Endometrial stripe: 5 mm in thickness. No retained solid component isseen. Right ovary: 3.8 x 2.4 x 3.4 cm. Normal echogenicity. Normal blood flowand spectral analysis. No masses. Physiologic follicles within the rightovary. Left ovary: 4.1 x 4.4 x 2.4 cm. Normal echogenicity. Normal blood flow andspectral analysis. No masses. Physiologic follicles within the left ovary,largest measuring up to 1.1 cm. Other findings: No free fluid. Visible bladder not adequately distended. =====IMPRESSION:===== 1. No acute findings within the pelvis. Normal sonographic appearance ofthe endometrium. 2. Fibroid uterus. Ordered By: KIMBERLY TREJO Interpreted By: Elder King MD, 08/03/2024 3:43 PM us Kimberly Trejo PA ULTRASOUND Final Result * CT ABD+PEL W CON (08/03/2024 2:50 PM BACK LINE COOK) Anatomical Region Laterality Modality Abdomen Computed Tomogra phy 08/03/2024 2:59 PM BACK LINE COOK Impressions 08/03/2024 3:04 PM BACK LINE COOK Impression: 1. No acute findings within the abdomen or pelvis. 2. Fibroid uterus. Small volume free pelvic fluid, favor physiologic. 3. Small umbilical hernia containing only fat. Ordered By: ROBB ESQUIVEL Interpreted By: Elder King MD, 08/03/2024 2:59 PM Narrative 08/03/2024 3:04 PM BACK LINE COOK [facility] [address] [place], [place] [address] EXAMINATION: CT Abdomen and Pelvis with contrast EXAM DATE/TIME: 08/03/2024 2:44 PM REASON FOR EXAM: jigna-umbilical pain COMPARISON: None available. TECHNIQUE: Computed tomography of the abdomen and pelvis was obtained after administration of intravenous contrast. A dose lowering technique was used for this procedure, which may include, but is not limited to, dose reduction technique, automated exposure control, iterative reconstruction, ALARA (As Low As Reasonably Achievable), or Image Gently techniques. FINDINGS: - Lower Thorax: No suspicious pulmonary abnormalities. No pleural or pericardial effusions. - Liver: Normal in morphology and enhancement. No suspicious hepatic masses are identified. The portal and hepatic veins are patent. - Biliary and Gallbladder: No intrahepatic or extrahepatic biliary ductal dilatation. The gallbladder is unremarkable. - Spleen: Normal in appearance. - Pancreas: Normal in appearance. - Adrenal Glands: Normal in appearance. - Kidneys: Symmetric in size and enhancement. Bosniak 2 subcentimeter cyst within the right kidney for which no specific follow-up is required. Additional tiny hyperattenuating foci in both kidneys which are too small to characterize by any imaging modality. No hydronephrosis. - Abdominal and Pelvic Vasculature: No abdominal aortic aneurysm. - Gastrointestinal Tract: No abnormal dilation or wall thickening. The appendix is identified and is within normal limits. - Peritoneum/Mesentery/Retroperitoneum: Small volume free pelvic fluid, favor physiologic. No well-organized intra-abdominal collection is seen. No free intraperitoneal air. - Lymph Nodes: No retroperitoneal, mesenteric, or pelvic lymphadenopathy. - Bladder: Normal in appearance. - Pelvic Organs: Heterogeneous appearance of the uterus compatible with reported recent gravid state. Redemonstrated uterine masses at the fundus compatible with uterine fibroids, as also seen on prior pelvic ultrasound. - Body Wall: Small umbilical hernia containing only fat. - Musculoskeletal: No aggressive appearing osseous lesions. Levocurvature of the lumbar spine. Procedure Note Elder King MD - 08/03/2024 [facility] [address] [place], [place] [address] EXAMINATION: CT Abdomen and Pelvis with contrast EXAM DATE/TIME: 08/03/2024 2:44 PM REASON FOR EXAM: jigna-umbilical pain COMPARISON: None available. TECHNIQUE: Computed tomography of the abdomen and pelvis was obtainedafter administration of intravenous contrast. A dose lowering techniquewas used for this procedure, which may include, but is not limited to,dose reduction technique, automated exposure control, iterativereconstruction, ALARA (As Low As Reasonably Achievable), or Image Gentlytechniques. FINDINGS: - Lower Thorax: No suspicious pulmonary abnormalities. No pleural orpericardial effusions. - Liver: Normal in morphology and enhancement. No suspicious hepaticmasses are identified. The portal and hepatic veins are patent. - Biliary and Gallbladder: No intrahepatic or extrahepatic biliary ductaldilatation. The gallbladder is unremarkable. - Spleen: Normal in appearance. - Pancreas: Normal in appearance. - Adrenal Glands: Normal in appearance. - Kidneys: Symmetric in size and enhancement. Bosniak 2 subcentimetercyst within the right kidney for which no specific follow-up is required.Additional tiny hyperattenuating foci in both kidneys which are too smallto characterize by any imaging modality. No hydronephrosis. - Abdominal and Pelvic Vasculature: No abdominal aortic aneurysm. - Gastrointestinal Tract: No abnormal dilation or wall thickening. Theappendix is identified and is within normal limits. - Peritoneum/Mesentery/Retroperitoneum: Small volume free pelvic fluid,favor physiologic. No well-organized intra-abdominal collection is seen.No free intraperitoneal air. - Lymph Nodes: No retroperitoneal, mesenteric, or pelviclymphadenopathy. - Bladder: Normal in appearance. - Pelvic Organs: Heterogeneous appearance of the uterus compatible withreported recent gravid state. Redemonstrated uterine masses at the funduscompatible with uterine fibroids, as also seen on prior pelvicultrasound. - Body Wall: Small umbilical hernia containing only fat. - Musculoskeletal: No aggressive appearing osseous lesions.Levocurvature of the lumbar spine. Impression: 1. No acute findings within the abdomen or pelvis. 2. Fibroid uterus. Small volume free pelvic fluid, favor physiologic. 3. Small umbilical hernia containing only fat. Ordered By: ROBB ESQUIVEL Interpreted By: Elder King MD, 08/03/2024 2:59 PM us Robb Esquivel PA CT Final Resu lt * URINALYSIS, AUTO, COMPLETE (08/03/2024 12:45 PM BACK LINE COOK) SPECIMEN TYPE URINE CLEAN CATCH 08/03/2024 12:44 PM BACK LINE COOK [facility] COLOR (U) LIGHT YELLOW 08/03/2024 3:58 PM BACK LINE COOK [facility] TRANSPARENCY CLEAR 08/03/2024 3:58 PM BACK LINE COOK [facility] SPECIFIC GRAVITY (U) 1.020 1.001 - 1.030 08/03/2024 3:58 PM BACK LINE COOK [facility] U PH 7.5 5.0 - 9.0 08/03/2024 3:58 PM BACK LINE COOK [facility] LEUKOCYTES (U) NEGATIVE NEGATIVE 08/03/2024 3:58 PM BACK LINE COOK [facility] NITRITES NEGATIVE NEGATIVE 08/03/2024 3:58 PM BACK LINE COOK [facility] PROTEIN RANDOM (U) NEGATIVE <30 MG/DL 08/03/2024 3:58 PM BACK LINE COOK [facility] GLUCOSE (U) NORMAL NORMAL MG/DL 08/03/2024 3:58 PM BACK LINE COOK [facility] KETONES MG/DL (U) NEGATIVE NEGATIVE MG/DL 08/03/2024 3:58 PM BACK LINE COOK [facility] UROBILINOGEN NORMAL NORMAL MG/DL 08/03/2024 3:58 PM [facility] BILIRUBIN (U) NEGATIVE NEGATIVE MG/DL 08/03/2024 3:58 PM BACK LINE COOK [facility] BLOOD (U) NEGATIVE NEGATIVE 08/03/2024 3:58 PM BACK LINE COOK [facility] MUCUS RARE /LPF 08/03/2024 3:58 PM BACK LINE COOK [facility] WBC/HPF <1 <6 /HPF 08/03/2024 3:58 PM BACK LINE COOK [facility] RBC/HPF 3 <6 /HPF 08/03/2024 3:58 PM BACK LINE COOK [facility] SQUAMOUS EPITHELIALS RARE /HPF 08/03/2024 3:58 PM BACK LINE COOK [facility] URINE SPECIMEN OBTAINED BY CLEAN CATCH PROCEDURE / Unknown 08/03/2024 12:45 PM BACK LINE COOK us Robb [facility]OR[facility] URINE ORDERABLES Final Res ult [facility] [address] [place] [address], * (ABNORMAL) COMPREHENSIVE METABOLIC PANEL (08/03/2024 12:45 PM BACK LINE COOK) Only the most recent of2 resultswithin the time period is included. GLUCOSE 107(H) 70 - 99 MG/DL 08/03/2024 1:17 PM BACK LINE COOK [facility] BUN 5(L) 7 - 18 MG/DL 08/03/2024 1:17 PM [facility] CREATININE S/P/B 0.74 0.55 - 1.02 MG/DL 08/03/2024 1:17 PM BACK LINE COOK [facility] SODIUM S/P/B 135(L) 136 - 145 MMOL/L 08/03/2024 1:17 PM [facility] POTASSIUM S/P/B 3.8 3.5 - 5.1 MMOL/L 08/03/2024 1:17 PM [facility] CHLORIDE S/P/B 104 97 - 115 MMOL/L 08/03/2024 1:17 PM [facility] CO2 28.4 21 - 32 MMOL/L 08/03/2024 1:17 PM [facility] CALCIUM S/P/B 9.3 8.5 - 10.1 MG/DL 08/03/2024 1:17 PM [facility] BILIRUBIN TOTAL S/P/B 0.5 0.2 - 1.2 MG/DL 08/03/2024 1:17 PM [facility] Comment: THIS ASSAY IS NOT RECOMMENDED FOR PATIENTS UNDERGOING TREATMENT WITH ELTROMBOPAG DUE TO THE POTENTIAL FOR FALSELY ELEVATED RESULTS. TOTAL PROTEIN S/P/B 8.2 6.4 - 8.2 G/DL 08/03/2024 1:17 PM [facility] ALBUMIN S/P/B 4.2 3.4 - 5.0 G/DL 08/03/2024 1:17 PM [facility] AST 9(L) 15 - 37 U/L 08/03/2024 1:17 PM [facility] ALT 17 14 - 55 U/L 08/03/2024 1:17 PM [facility] ALKALINE PHOSPHATASE S/P/B 63 50 - 136 U/L 08/03/2024 1:17 PM [facility] ANION GAP 2.6 2 - 10 MMOL/L 08/03/2024 1:17 PM [facility] BUN CREATININE RATIO 6.7 6 - 26 08/03/2024 1:17 PM [facility] A/G RATIO 1.0 1.0 - 2.0 RATIO 08/03/2024 1:17 PM [facility] GFR ESTIMATE >90 >90 ML/MIN/1.7 3 M2 08/03/2024 1:17 PM [facility] Comment: NOTE: eGFR is not calculated for patients <18 years of age or gender unknown. This is an estimated GFR calculation using the new CKD EPI creatinine equation without race and so does not require a correction factor for race. This estimated GFR should not be used for calculating drug doses. 08/03/2024 12:4 5 PM BACK LINE COOK [facility] Final Resu lt Performing Organization Address City/[facility] Co de Phone Number [facility] [address] [place] [address], [place] [phone] * HCG QUANTITATIVE SERUM (08/03/2024 12:45 PM BACK LINE COOK) Only the most recent of2 resultswithin the time period is included. HCG QUANTITATIVE 105 MIU/ML 08/03/19 1:18 PM BACK LINE COOK [facility] Comment: WEEKS OF REFERENCE RANGES Non- female < or = 2 0.2 - 1 5 - 50 1 - 2 50 - 500 2 - 3 100 - 5000 3 - 4 500 - 10,000 4 - 5 1000 - 50,000 5 - 6 10,000 - 100,000 6 - 8 15,000 - 200,000 2 - 3 MONTHS 10,000 - 100,000 08/03/2024 12:4 5 PM BACK LINE COOK [facility] Final Resu lt Performing Organization Address City/[facility] de Phone Number [facility] [address] [place] [address], [place] [phone] * (ABNORMAL) CBC W/DIFF AUTOMATED (08/03/2024 12:45 PM BACK LINE COOK) Only the most recent of2 resultswithin the time period is included. WBC 5.18 4.5 - 11.0 x10'3/uL 08/03/2024 1:34 PM BACK LINE COOK [facility] RBC 4.72 4.20 - 5.40 x10'6/uL 08/03/2024 1:34 PM [facility] HGB 13.6 12.0 - 16.0 G/DL 08/03/2024 1:34 PM [facility] HCT 42.6 38.0 - 48.0 % 08/03/2024 1:34 PM [facility] MCV 90.3 81.0 - 99.0 FL 08/03/2024 1:34 PM [facility] MCH 28.8 27.0 - 31.0 PG 08/03/2024 1:34 PM [facility] MCHC 31.9(L) 32.0 - 36.0 G/DL 08/03/2024 1:34 PM [facility] RDW 12.5 11.5 - 14.5 % 08/03/2024 1:34 PM [facility] PLT 366 130 - 400 x10'3/uL 08/03/2024 1:34 PM [facility] MPV 9.5 9.3 - 12.2 FL 08/03/2024 1:34 PM [facility] DIFFERENTIAL TYPE AUTOMATED DIFFERENTIAL 08/03/2024 1:34 PM [facility] NEUTROPHILS % 61.4 % 08/03/2024 1:34 PM [facility] LYMPHOCYTES % 29.7 % 08/03/2024 1:34 PM [facility] MONOCYTES % 5.8 % 08/03/2024 1:34 PM [facility] EOSINOPHILS 1.9 % 08/03/2024 1:34 PM [facility] BASOPHILS 1.0 % 08/03/2024 1:34 PM [facility] IMMATURE GRANS % 0.2 % 08/03/19 1:34 PM BACK LINE COOK [facility] ABS. NEUTROPHILS 3.18 1.80 - 7.70 x10'3/uL 08/03/2024 1:34 PM BACK LINE COOK [facility] ABS. LYMPHOCYTES 1.54 1.00 - 4.80 x10'3/uL 08/03/2024 1:34 PM BACK LINE COOK [facility] ABS. MONOCYTES 0.30 0.24 - 0.86 x10'3/uL 08/03/2024 1:34 PM BACK LINE COOK [facility] ABS. EOSINOPHILS 0.10 0.04 - 0.36 x10'3/uL 08/03/2024 1:34 PM BACK LINE COOK [facility] ABS. BASOPHILS 0.05 0.01 - 0.08 x10'3/uL 08/03/2024 1:34 PM BACK LINE COOK [facility] ABS. IMMATURE GRANULOCYTES 0.01 0.00 - 0.49 x10'3/uL 08/03/2024 1:34 PM BACK LINE COOK [facility] 08/03/2024 12:4 5 PM BACK LINE COOK us [facility] Final Resu lt [facility] [address] [place] [address], * US OB TRANSVAG (07/15/2024 12:29 PM BACK LINE COOK) Anatomical Region Laterality Modality Abdomen, Pelvis Ultrasound 07/15/2024 12:5 2 PM BACK LINE COOK Impressions 07/15/2024 1:07 PM BACK LINE COOK IMPRESSION: 1. Intrauterine gestational sac, yolk sac, [...] 07/15/2024 12:52 PM Narrative 07/15/2024 1:07 PM BACK LINE COOK [address] [address] IMAGING STUDIES: US OB TRANSVAG DATE: 07/15/2024 [...] Procedure Note Jay Hernandez MD - 07/15/2024 [facility] [address] [place], [place] [address] IMAGING STUDIES: US OB TRANSVAGDATE: 07/15/2024 11:48AM [...] Jay Hernandez, 07/15/2024 12:52 PM Federica Vargas NP ULTRASOUND Final Result * (ABNORMAL) POCT urine (07/15/2024 10:48 AM BACK LINE COOK) URINE HCG TEST POSITIVE(A ) Internal Control: VALID Federica Vargas NP POINT OF CARE TEST ORDERABLES Final Result * URINALYSIS (07/15/2024 10:45 AM BACK LINE COOK) [facility] SPECIMEN TYPE URINE CLEAN CATCH 07/15/2024 10:48 AM [facility] COLOR (U) YELLOW 07/15/2024 10:55 AM [facility] TRANSPARENCY CLEAR 07/15/2024 10:55 AM [facility] SPECIFIC GRAVITY (U) 1.029 1.001 - 1.030 07/15/2024 10:55 AM [facility] U PH 7.5 5.0 - 9.0 07/15/2024 10:55 AM [facility] LEUKOCYTES (U) NEGATIVE NEGATIVE 07/15/2024 10:55 AM [facility] NITRITES NEGATIVE NEGATIVE 07/15/2024 10:55 AM [facility] PROTEIN RANDOM (U) 10 <30 MG/DL 07/15/2024 10:55 AM [facility] GLUCOSE (U) NORMAL NORMAL MG/DL 07/15/2024 10:55 AM [facility] KETONES MG/DL (U) NEGATIVE NEGATIVE MG/DL 07/15/2024 10:55 AM [facility] UROBILINOGEN NORMAL NORMAL MG/DL 07/15/2024 10:55 AM [facility] BILIRUBIN (U) NEGATIVE NEGATIVE MG/DL 07/15/2024 10:55 AM [facility] BLOOD (U) NEGATIVE NEGATIVE 07/15/2024 10:55 AM BACK LINE COOK [facility] URINE SPECIMEN OBTAINED BY CLEAN CATCH PROCEDURE / Unknown 07/15/2024 10:45 AM BACK LINE COOK us Federica Vargas SPRAY MACHINE LOADER URINE ORDERABLES Final Result [facility] [address] [place] [address], from Last 3 Months Insurance [employer] Care Teams Surface Ship Usw Supervisor Relationship Specialty Start Date End Date Kristopher Askew MD [address] [facility], [place] [id number] PCP - General FAMILY PRACTICE 01/11/24
--- OUTSIDE RECORDS SUMMARY | 2024-08-11 11:16 | XMS_ITS | Clinical Summary ---
Author Organization [facility] Address [address] [place] [id number] Care Team Providers Care Summer Intern Name Role Phone Lissypoonammario Magy GARIBAY Primary Care Provider [phone] Allergies Active Allergy Reactions Criticality Noted Date [...] on file Legal Sex Female 6:43 PM [employer] Gender Identity Not on file Sexual Orientation Not on file Obstetrics History Last Filed Vital Signs Vital Sign Reading Time Taken Comments Blood Pressure 119/85 04/20/2022 12:33 PM [employer] Pulse 88 04/20/2022 12:33 PM [employer] Temperature 37.3 C (99.2 F) 04/20/2022 10:40 AM [employer] Respiratory Rate 18 04/20/2022 12:3 3 PM [employer] Oxygen Saturation 99% 04/20/2022 12: 33 PM [employer] Inhaled Oxygen Concentration - - Weight 88.9 kg (195 lb 15.8 oz) 04/20/2022 8:35 AM [employer] Height 157.5 cm (5' 2 ) 04/20/2022 8:35 AM [employer] Body Mass Index 35.85 04/20/2022 8:35 AM [employer]AF[employer]Y [employer] Plan of Treatment Health Maintenance Due Date Last Done Comments Cervical Cancer Screening 1991 Depression Screening 1991 Hepatitis C Screening 1991 Varicella Vaccines (1 of 2 - 13+ 2-dose series) 10/31/2004 Regular Well Visit/Exam 18-64 10/31/2009 Influenza Vaccine (#1) 2024 04/28/2007 DTaP/Tdap/Td Vaccine (8 - Td or Tdap) 12/15/2024 12/15/2014, 12/15/2014, 04/01/1998, Additional history exists Hepatitis B Screening Completed 03/16/2002 , 04/01/1998, 01/01/1997 HPV Vaccines Completed 10/28/2007, 06/09, 04/28/2007 Pneumococcal vaccine <65 Aged Out No longer eligible based on patient's age to complete this topic Insurance [facility] Care Teams Summer Intern Relationship Specialty Start Date End Date Magy Medina NP [facility] - General 05/10/19
--- OUTSIDE RECORDS SUMMARY | 2024-08-11 11:16 | XMS_ITS | Referral Summary ---
Author Organization [facility] Address [address] [place] [address] Care Team Providers Care Stock Unloader Name Role Phone Kritsopher Askew MD Primary Care Provider [phone] Source Comments [facility],non-owned Affiliates and Associated Physician Practices is amultiple site organization consisting of ambulatory clinics and hospital sitesin [place], [place], [place] and [place]. This disclosure is being madepursuant to the Care Everywhere program and may not contain all information available regarding this patient. Last updated 18.[facility] [place] Allergies Active Allergy Reactions Criticality Noted Date [...] of Treatment Not on file Care Teams Stock Unloader Relationship Specialty Start Date End Date Kristopher Askew MD [address] [place] [address] PCP - General Family Medicine 09/30/23
--- OUTSIDE RECORDS SUMMARY | 2024-08-11 11:16 | XMS_ITS | Referral Summary ---
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 Gender Identity Not on file Sexual Orientation Not on file Last Filed Vital Signs Vital Sign Reading Time Taken Comments Blood Pressure 119/85 04/20/2022 12:33 PM AVIATION ELECTRONIC WARFARE OPERATOR Pulse 88 04/20/2022 12:33 PM AVIATION ELECTRONIC WARFARE OPERATOR Temperature 37.3 C (99.2 F) 04/20/2022 10:40 AM AVIATION ELECTRONIC WARFARE OPERATOR Respiratory Rate 18 04/20/2022 12:3 3 PM AVIATION ELECTRONIC WARFARE OPERATOR Oxygen Saturation 99% 04/20/2022 12: 33 PM AVIATION ELECTRONIC WARFARE OPERATOR Inhaled Oxygen Concentration - - Weight 88.9 kg (195 lb 15.8 oz) 04/20/2022 8:35 AM AVIATION ELECTRONIC WARFARE OPERATOR Height 157.5 cm (5' 2 ) 04/20/2022 8:35 AM AVIATION ELECTRONIC WARFARE OPERATOR Body Mass Index 35.85 04/20/2022 8:35 AM AVIATION ELECTRONIC WARFARE OPERATOR Plan of Treatment Not on file Insurance [facility] Care Teams Clinical Data Research Relationship Specialty Start Date End Date Magy Medina NP PCP - General 05/10/19
--- OUTSIDE RECORDS SUMMARY | 2024-08-11 11:16 | XMS_ITS | Encounter Summary ---
Author Organization [facility] Facility Care Team Providers Care Silica Filter Operator Name Role Phone Magy Medina [place] Primary Care Provider [phone] Encounter Details Date Type Department Care Team (Latest Contact Info) Description 03/07/2015 Orders Only [facility] CLINCONV Provider, MD Barry [address] [place] [address] Social History Tobacco Use Types Packs/Day Years Used Date Smoking Tobacco: Never Assessed Comments Unknown Sex and Gender Information Value Date Recorded Sex Assigned at Not on file Legal Sex Female 6:43 PM BRASS POLISHER Gender Identity Not on file Sexual Orientation [...] [place] . 04/20/2022 04/20/2022 04/30/2022 3:05 AM BRASS POLISHER Influenza, adult 04/20/2022 04/20/2022 04/27/2022 3:05 AM BRASS POLISHER documented as of this encounter Care Teams Silica Filter Operator Relationship Specialty Start Date End Date Magy Medina NP PCP - General 05/10/19 documented as of this encounter
--- OUTSIDE RECORDS SUMMARY | 2024-08-11 11:16 | XMS_ITS | Patient Health Summary ---
Author Organization [facility] Address [address] [place] [address] Care Team Providers Care Camp Director Name Role Phone Kristopher Askew MD Primary Care Provider [phone] Note from [facility],non-owned Affiliates and Associated Physician Practices is amultiple site organization consisting of ambulatory clinics and hospital sitesin [place], [place], [place] and [place]. This disclosure is being madepursuant to the Care Everywhere program and may not contain all information available regarding this patient. Last updated 18.[facility] [employer] Allergies * Latex(Rash) -Medium Criticality Medications * [...] Alternatives discussed: No treatment and delayed treatment [place] protocol: Immediately prior to procedure, a time [...] Bebe Martin MD CT ORDERABLES Care Teams Camp Director Relationship Specialty Start Date End Date Kristopher Askew MD [address] [place] [address] PCP - General Family Medicine 09/30/23
== END 2024-08-11 10:12 | disposition home or self-care (01) ==
PROVIDERS: PCP Family Medicine; Visit Provider Obstetrics & Gynecology
DX: N91.2 Amenorrhea, unspecified (principal)
CPT/HCPCS: 36415; 84702

== ENCOUNTER 2024-09-28 03:14 | Day surgery (SDC) | payer OTHER, SELFPAY ==
[2024-09-17 13:53] VITALS: BMI 29.9
--- NOTE | 2024-09-17 13:55 | PC.NURSE ---
Report to the Outpatient Waiting Room, entrance under the green pavilion located off [facility], at time ____1230___ on date ____09/28/2024___. Planned Procedure Time: ___1330 .? Time changes happen often and if your time is changed the preop area will call you the afternoon before. - You and your visitor will be asked to self-screen and do not enter if you have any COVID symptoms. Please call surgeon if you need to reschedule. - A mask is optional within the hospital at this time. Patients may have clear liquids (water, carbonated beverages, clear teas, apple juice) until 2 hours prior to surgery with a maximum of 20 ounces. - Okay to have a light breakfast Take only the following medications with a SIP of water on the morning of surgery: albuterol as needed, cyclobenzaprine, fluticasone as needed, topiramate DO NOT STOP ANY OF YOUR OTHER PRESCRIPTION MEDICATIONS PRIOR TO SURGERY EXCEPT THE FOLLOWING Hold all vitamins and supplements for 3 days per anesthesiologist. Please no make-up, nail south korean, hairspray, perfume, deodorant, or body powder the day of surgery.? No jewelry (including any body piercings) or valuables the day of surgery, leave them at home.? Please take a shower or bath the night before, or the morning of, surgery with an antibacterial soap.? Wear comfortable, loose fitting clothing.? - Jewelry must be removed prior to entering the operating room.? Rings and piercings that are not removed may be cut off. - The hospital will not accept responsibility for valuables.? - Please leave all valuables, including medications, at home the day of surgery. If you are going home after surgery, a licensed tower truck driver must drive you home.? - NO public transportation without another adult if you receive anesthesia. - We recommend that an adult stay with you for 24 hours following discharge. - We also recommend that you do not drive, make important decision, drink alcoholic beverages, or take any drugs that were not prescribed by your health care provider for at least 24 hours after your discharge time. Follow any additional instructions given to you from your surgeon. Telephone instructions given to ___Diamond and asked if any additional questions and then verbalized understanding. Patient advised to call surgeon office or pre surgery nurse liaison [phone] if any additional questions.
--- NOTE | 2024-09-17 15:08 | PC.NURSE ---
Report to the Outpatient Waiting Room, entrance under the green pavilion located off [facility], at time ____1230___ on date ____09/28/2024___. Planned Procedure Time: ___1330 .? Time changes happen often and if your time is changed the preop area will call you the afternoon before. - You and your visitor will be asked to self-screen and do not enter if you have any COVID symptoms. Please call surgeon if you need to reschedule. - A mask is optional within the hospital at this time. Patients may have clear liquids (water, carbonated beverages, clear teas, apple juice) until 2 hours prior to surgery with a maximum of 20 ounces. - Okay to have a light breakfast DO NOT STOP ANY OF YOUR OTHER PRESCRIPTION MEDICATIONS PRIOR TO SURGERY Please no make-up, nail lao, hairspray, perfume, deodorant, or body powder the day of surgery.? No jewelry (including any body piercings) or valuables the day of surgery, leave them at home.? Please take a shower or bath the night before, or the morning of, surgery with an antibacterial soap.? Wear comfortable, loose fitting clothing.? - Jewelry must be removed prior to entering the operating room.? Rings and piercings that are not removed may be cut off. - The hospital will not accept responsibility for valuables.? - Please leave all valuables, including medications, at home the day of surgery. If you are going home after surgery, a licensed pizza delivery driver must drive you home.? - NO public transportation without another adult if you receive anesthesia. - We recommend that an adult stay with you for 24 hours following discharge. - We also recommend that you do not drive, make important decision, drink alcoholic beverages, or take any drugs that were not prescribed by your health care provider for at least 24 hours after your discharge time. Follow any additional instructions given to you from your surgeon. Telephone instructions given to ___Diamond and asked if any additional questions and then verbalized understanding. Patient advised to call surgeon office or pre surgery nurse liaison [phone] if any additional questions.
--- NOTE | ~2024-09-28 | XR_ITS ---
INTRAOPERATIVE FLUOROSCOPY: CLINICAL HISTORY: 33 years old Female; CERVICAL BRANCH BLOCK PROCEDURE COMMENTS: Limited intraoperative fluoroscopy of the cervical spine was performed. CUMULATIVE DOSE: 3.8 mGy FLUOROSCOPY TIME: 70 seconds FINDINGS/IMPRESSION: Please refer to operative note for further details. Reviewed, dictated and finalized at location A.
--- OUTSIDE RECORDS SUMMARY | 2024-09-28 03:16 | XMS_ITS | Referral Summary ---
Author Organization [facility] Address [address] [place] [address] Care Team Providers Care Game And Fish Protector Name Role Phone Lissypoonammario Magy GARIBAY Primary Care Provider [phone] Allergies Active Allergy Reactions Criticality Noted Date [...] on file Legal Sex Female 6:43 PM ELECTRONICS PARTS SALES REPRESENTATIVE Gender Identity Not on file Sexual Orientation Not on file Last Filed Vital Signs Vital Sign Reading Time Taken Comments Blood Pressure 119/85 04/20/2022 12:33 PM ELECTRONICS PARTS SALES REPRESENTATIVE Pulse 88 04/20/2022 12:33 PM ELECTRONICS PARTS SALES REPRESENTATIVE Temperature 37.3 C (99.2 F) 04/20/2022 10:40 AM ELECTRONICS PARTS SALES REPRESENTATIVE Respiratory Rate 18 04/20/2022 12:3 3 PM ELECTRONICS PARTS SALES REPRESENTATIVE Oxygen Saturation 99% 04/20/2022 12: 33 PM ELECTRONICS PARTS SALES REPRESENTATIVE Inhaled Oxygen Concentration - - Weight 88.9 kg (195 lb 15.8 oz) 04/20/2022 8:35 AM ELECTRONICS PARTS SALES REPRESENTATIVE Height 157.5 cm (5' 2 ) 04/20/2022 8:35 AM ELECTRONICS PARTS SALES REPRESENTATIVE Body Mass Index 35.85 04/20/2022 8:35 AM ELECTRONICS PARTS SALES REPRESENTATIVE Plan of Treatment Not on file Insurance [facility] Care Teams Game And Fish Protector Relationship Specialty Start Date End Date Magy Medina NP PCP - General 05/10/19
--- OUTSIDE RECORDS SUMMARY | 2024-09-28 03:16 | XMS_ITS | Clinical Summary ---
Author Organization [facility] Address [address] [place] [address] Care Team Providers Care Outside B2B Sales Name Role Phone Kristopher Askew MD Primary Care Provider [phone] Source Comments [facility],non-owned Affiliates and Associated Physician Practices is amultiple site organization consisting of ambulatory clinics and hospital sitesin [place], [place], [place] and [place]. This disclosure is being madepursuant to the Care Everywhere program and may not contain all information available regarding this patient. Last updated 18.[facility] Allergies Active Allergy Reactions Criticality Noted Date Comments Latex Rash Medium 02/14/2017 Medications * Be aware that medications may not be up to date on this document. Alwaysverify current medications with the patient. albuterol HFA (PROVENTIL HFA) 108 (90 BASE) MCG/ACT inhaler 2 Inhaler 1 7 Active raNITIdine (ZANTAC) 150 MG tablet 5 7 Active EPINEPHrine (EPIPEN) 0.3 MG/0.3ML auto-injector pen 7 Active cetirizine (ZYRTEC) 10 MG tablet Take 10 mg by mouth DAILY. 30 tablet 3 7 Active beclomethasone dipropionate (QVAR) 40 MCG/ACT inhaler Inhale 2 puffs by mouth BID. 1 Inhaler 3 7 Active DULoxetine (CYMBALTA) 30 MG capsule 2 7 Active methocarbamol (Robaxin) 750 MG tablet TAKE ONE TABLET BY MOUTH EVERY 6 HOURS NEEDED FOR MUSCLE SPASMS 20 tablet 4 09/30/19 25 Active hydrOXYzine HCl (Atarax) 50 MG tablet TAKE ONE TABLET BY MOUTH 3 TIMES A DAY NEEDED FOR ANXIETY 30 tablet 4 10/01/19 25 Active Family History Medical History Relation Name [...] more drinks on one occasion? Never 09/29/2023 Comments Unknown Sex and Gender Information Value Date Recorded Sex Assigned at Not on file Legal Sex Female 5:28 PM DIAMOND MOUNTER Gender Identity Not on file Sexual Orientation [...] (2 - 2023-2 5 season) 2024 09/23/2022 DEPRESSION SCREENING 06/09/2024 INFLUENZA VACCINE (Season Ended) 2025 04/30/2022, 04/28/2007 ZOSTER VACCINE (1 of 2) 10/31/2041 HIB VACCINE Aged Out No longer eligi ble based on patient's age to complete this topic HPV VACCINE Aged Out No longer eligi ble based on patient's age to complete this topic MENINGOCOCCAL (Group B) VACCINE SHARED DECISION-MAKING Aged Out No longer eligible based on patient's age to complete this topic MENINGOCOCCAL GROUPS A/C/Y/W VACCINE Aged Out No longer eligible b ased on patient's age to complete this topic PNEUMOCOCCAL VACCINE Aged Out No long er eligible based on patient's age to complete this topic Insurance MEDICAID - [place] [employer] [address] [employer] Care Teams Outside B2B Sales Relationship Specialty Start Date End Date Kristopher Askew MD [address] [place] [id number] PCP - General Family Medicine 09/30/23
--- OUTSIDE RECORDS SUMMARY | 2024-09-28 03:16 | XMS_ITS | Encounter Summary ---
Author Organization [facility] Facility Care Team Providers Care Metal Burnisher Name Role Phone Magy Medina [place] Primary Care Provider [phone] Encounter Details Date Type Department Care Team (Latest Contact Info) Description 03/07/2015 Orders Only [facility] CLINCONV Provider, MD Baryr [address] [place] [id number] Social History Tobacco Use Types Packs/Day Years Used Date Smoking Tobacco: Never Assessed Comments Unknown Sex and Gender Information Value Date Recorded Sex Assigned at Not on file Legal Sex Female 6:43 PM BROADCAST CHIEF ENGINEER Gender Identity Not on file Sexual Orientation [...] the result is from a facility outside [facility] . 04/20/2022 04/20/2022 04/30/2022 3:05 AM BROADCAST CHIEF ENGINEER Influenza, adult 04/20/2022 04/20/2022 04/27/2022 3:05 AM BROADCAST CHIEF ENGINEER documented as of this encounter Care Teams Metal Burnisher Relationship Specialty Start Date End Date Magy Medina NP PCP - General 05/10/19 documented as of this encounter
--- OUTSIDE RECORDS SUMMARY | 2024-09-28 03:16 | XMS_ITS | Clinical Summary ---
Author Organization [facility] Address [address] [place] [phone] Care Team Providers Care Radial Drill Operator For Plastic Name Role Phone Lissypoonammario Magy GARIBAY Primary Care Provider [phone] Allergies Active Allergy Reactions Criticality Noted Date [...] on file Legal Sex Female 6:43 PM LABORATORY MECHANIC HELPER Gender Identity Not on file Sexual Orientation Not on file Obstetrics History Last Filed Vital Signs Vital Sign Reading Time Taken Comments Blood Pressure 119/85 04/20/2022 12:33 PM LABORATORY MECHANIC HELPER Pulse 88 04/20/2022 12:33 PM LABORATORY MECHANIC HELPER Temperature 37.3 C (99.2 F) 04/20/2022 10:40 AM LABORATORY MECHANIC HELPER Respiratory Rate 18 04/20/2022 12:3 3 PM LABORATORY MECHANIC HELPER Oxygen Saturation 99% 04/20/2022 12: 33 PM LABORATORY MECHANIC HELPER Inhaled Oxygen Concentration - - Weight 88.9 kg (195 lb 15.8 oz) 04/20/2022 8:35 AM LABORATORY MECHANIC HELPER Height 157.5 cm (5' 2 ) 04/20/2022 8:35 AM LABORATORY MECHANIC HELPER Body Mass Index 35.85 04/20/2022 8:35 AM LABORATORY MECHANIC HELPER Plan of Treatment Health Maintenance Due Date [...] age to complete this topic Insurance [facility] Care Teams Radial Drill Operator For Plastic Relationship Specialty Start Date End Date Magy Medina NP [facility] - General 05/10/19
--- OUTSIDE RECORDS SUMMARY | 2024-09-28 03:16 | XMS_ITS | Clinical Summary ---
Author Organization [facility] Address [address] [place] [address] Care Team Providers Care Salesperson [employer]ial [employer] Name Role Phone Kristopher Askew MD Primary Care Provider [phone] Allergies Active Allergy Reactions Criticality Noted Date Comments Latex Rash Medium 02/14/2017 Medications albuterol sulfate HFA 108 (90 BASE) MCG/ACT inhaler Inhale 2 puffs into the lungs every 6 (six) hours as needed for Wheezing. Active hydroCHLOROthiazide (HYDRODIURIL) 25 MG tablet Take 1 tablet (25 mg total) by mouth every morning. 30 tablet 3 Active ondansetron (ZOFRAN-ODT) 4 MG disintegrating tablet Take 1 tablet (4 mg total) by mouth every 8 (eight) hours as needed. 10 tablet 5 Active cephALEXin (KEFLEX) 500 MG capsule Take 1 capsule (500 mg total) by mouth 4 (four) times daily for 7 days. 28 capsule 5 09/03/19 25 Active Problems Problem Noted Date Diagnosed Date Lumbar radiculopathy 06/16/2017 Encounters Date Type Department Care Team Description 08/26/2024 2:25 PM CDT - 08/26/2024 8:17 PM CDT Emergency [facility] [place] [address] [place] [address] Vicente Ac NP Headache; Abdominal Pain Discharge Disposition: Home or Self Care (Routine Discharge) 08/26/2024 Travel 08/03/2024 12:30 PM AIRCRAFT MACHINIST HELPER - 08/03/2024 4:50 PM AIRCRAFT MACHINIST HELPER Emergency [facility] [place] [address] [place] [address] Kimberly Trejo PA Abdominal Pain Discharge Disposition: Home or Self Care (Routine Discharge) 08/03/2024 Travel 07/15/2024 10:13 AM AIRCRAFT MACHINIST HELPER - 07/15/2024 1:58 PM AIRCRAFT MACHINIST HELPER Emergency [facility] [place] [address] [place] [address] Amish Vargas NP Abdominal Pain ; Rectal Pain Discharge Disposition: Home or Self Care (Routine Discharge) 07/15/2024 Travel from Last 3 Months Immunizations Immunization Administration Dates Next Due Tdap (Boostrix) 01/11/2024 [...] Sex Assigned at Female 07/15/2024 9:45 AM AIRCRAFT MACHINIST HELPER Legal Sex Female 7:19 PM CDT Gender Identity Not on file Sexual Orientation Not on file Last Filed Vital Signs Vital Sign Reading Time Taken Comments Blood Pressure 119/96 08/26/2024 1:50 PM CDT Pulse 97 08/26/2024 1:50 PM CDT Temperature 36.5 C (97.7 F) 08/26/2024 1:50 PM CDT Respiratory Rate 16 08/26/2024 1:50 PM CDT Oxygen Saturation 100% 08/26/2024 1:50 PM CDT Inhaled Oxygen Concentration - - Weight 71.2 kg (157 lb) 08/26/2024 1:50 PM CDT Height 154.9 cm (5' 1 ) 08/26/2024 1:50 PM CDT Body Mass Index 29.66 08/26/2024 1:50 PM CDT Plan of Treatment Health Maintenance [...] Cancer Screening with HPV 10/31/2021 COVID-19 Vaccine (1 - 2023- season) 2024 DTaP, Tdap and Td Vaccines (7 [...] 5 Years) and At-Risk Patients (6 to 49 Years) Aged Out No longer eligible based on patient's age to complete this topic RSV Immunizations Under 20 Months Aged Out No longer eligible based on patient's age to complete this topic Procedures Procedure Name Priority Date/Time Associated Diagnosis Comments LIPASE Routine 08/26/2024 6:22 PM CDT COMPREHENSIVE METABOLIC PANEL Routine 08/26/2024 6:[address] ABD+PEL W CON STAT 08/26/2024 5:08 PM CDT URINE BACTERIA CULTURE Routine 3:12 PM CDT HC URINALYSIS AUTO W/O MICRO STAT 08/26/2024 3:12 PM CDT POCT URINE (BACK OFFICE) STAT 08/26/2024 3:11 PM CDT CBC W/DIFF AUTOMATED STAT 08/26/2024 2:53 PM CDT US PELVIC NON OB COMP TV STAT 08/03/2024 3:43 PM AIRCRAFT MACHINIST HELPER CT ABD+PEL W CON STAT 08/03/2024 2:50 PM AIRCRAFT MACHINIST HELPER HCG QUANT (SERUM)-CHORIONIC GONADOTROPIN STAT 08/03/2024 12:45 PM AIRCRAFT MACHINIST HELPER URINALYSIS, AUTO, COMPLETE STAT 08/03/2024 12:45 PM AIRCRAFT MACHINIST HELPER COMPREHENSIVE METABOLIC PANEL STAT 08/03/2024 12:45 PM AIRCRAFT MACHINIST HELPER CBC W/DIFF AUTOMATED STAT 08/03/2024 12:45 PM AIRCRAFT MACHINIST HELPER US OB TRANSVAG STAT 07/15/2024 12:29 PM AIRCRAFT MACHINIST HELPER POCT URINE (BACK OFFICE) STAT 07/15/2024 10:48 AM AIRCRAFT MACHINIST HELPER HC URINALYSIS AUTO W/O MICRO STAT 07/15/2024 10:45 AM AIRCRAFT MACHINIST HELPER COMPREHENSIVE METABOLIC PANEL STAT 07/15/2024 10:39 AM AIRCRAFT MACHINIST HELPER CBC W/DIFF AUTOMATED STAT 07/15/2024 10:39 AM AIRCRAFT MACHINIST HELPER HCG QUANT (SERUM)-CHORIONIC GONADOTROPIN STAT 07/15/2024 10:37 AM AIRCRAFT MACHINIST HELPER from Last 3 Months Results * (ABNORMAL) COMPREHENSIVE METABOLIC PANEL (08/26/2024 6:22 PM CDT) Only the most recent of3 resultswithin the time period is included. GLUCOSE 132(H) 70 - 99 MG/DL 08/26/2024 7:01 PM CDT [facility] BUN 8 7 - 18 MG/DL 08/26/2024 7:01 PM CDT [facility] CREATININE S/P/B 0.80 0.55 - 1.02 MG/DL 08/26/2024 7:01 PM CDT [facility] SODIUM S/P/B 140 136 - 145 MMOL/L 08/26/2024 7:01 PM CDT [facility] POTASSIUM S/P/B 4.1 3.5 - 5.1 MMOL/L 08/26/2024 7:01 PM T [facility] Comment:SLIGHT HEMOLYSIS, RE SULT MAY BE AFFECTED. CHLORIDE S/P/B 107 97 - 115 MMOL/L 08/26/2024 7:01 PM T [facility] CO2 26.8 21 - 32 MMOL/L 08/26/2024 7:01 PM T [facility] CALCIUM S/P/B 8.8 8.5 - 10.1 MG/DL 08/26/2024 7:01 PM T [facility] BILIRUBIN TOTAL S/P/B 0.3 0.2 - 1.2 MG/DL 08/26/2024 7:01 PM T [facility] Comment: THIS ASSAY IS NOT RECOMMENDED FOR PATIENTS UNDERGOING TREATMENT WITH ELTROMBOPAG DUE TO THE POTENTIAL FOR FALSELY ELEVATED RESULTS. TOTAL PROTEIN S/P/B 7.4 6.4 - 8.2 G/DL 08/26/2024 7:01 PM T [facility] ALBUMIN S/P/B 3.5 3.4 - 5.0 G/DL 08/26/2024 7:01 PM T [facility] AST 24 15 - 37 U/L 08/26/2024 7:01 PM T [facility] Comment:SLIGHT HEMOLYSIS, RE SULT MAY BE AFFECTED. ALT 16 14 - 55 U/L 08/26/2024 7:01 PM T [facility] ALKALINE PHOSPHATASE S/P/B 52 50 - 136 U/L 08/26/2024 7:01 PM T [facility] ANION GAP 6.2 2 - 10 MMOL/L 08/26/2024 7:01 PM T [facility] BUN CREATININE RATIO 10.1 6 - 26 08/26/2024 7:01 PM CDT [facility] A/G RATIO 0.9(L) 1.0 - 2.0 RATIO 08/26/2024 7:01 PM CDT [facility] GFR ESTIMATE >90 >90 ML/MIN/1.7 3 M2 08/26/2024 7:01 PM CDT [facility] Comment: NOTE: eGFR is not calculated for patients <18 years of age or gender unknown. This is an estimated GFR calculation using the new CKD EPI creatinine equation without race and so does not require a correction factor for race. This estimated GFR should not be used for calculating drug doses. 08/26/2024 6:2 2 PM CDT Vicente Ac NP LABORATORY Final Result Performing Organization Address City/[facility]/ZIP Co de Phone Number [facility] [address] [place] [address], [place] [phone] * LIPASE (08/26/2024 6:22 PM CDT) LIPASE 70 13 - 75 UNITS/L 08/26/2024 7:01 PM CDT [facility] 08/26/2024 6:22 PM CDT Vicente Ac NP LABORATORY Final Result [facility] [address] [place] [address], [place] [phone] * CT ABD+PEL W IV CON ONLY (08/26/2024 5:08 PM CDT) Only the most recent of2 resultswithin the time period is included. Anatomical Region Laterality Modality Abdomen Computed Tomogra phy 08/26/2024 5:40 PM CDT Impressions 08/26/2024 5:46 PM CDT IMPRESSION: 1. No definite acute abnormality identified. 2. Trace free pelvic fluid. 3. Mildly prominent size of the uterus, uncertain significance. 4. Other chronic or nonurgent findings as above. Referred By: Interpreted By: Lionel Gutiérrez MD, 08/26/2024 5:40 PM Narrative 08/26/2024 5:46 PM CDT [address] [address] EXAMINATION: CT ABD+PEL W CON CLINICAL HISTORY: Abdominal pain COMPARISON: 08/03/2024 DATE/TIME: 08/26/2024 4:48 PM TECHNIQUE: Multiplanar CT images of the abdomen and pelvis were obtained. IV contrast: uneventful intravenous administration of 100 mL Isovue 300. Oral contrast: None. A dose lowering technique was used for this procedure, which may include, but is not limited to, dose reduction technique, automated exposure control, the use of iterative reconstruction, and ALARA (As Low As Reasonably Achievable) / Image Gently techniques. FINDINGS: Liver is negative. Gallbladder is negative. Spleen is negative. Pancreas is negative. Gallbladder is negative. Adrenal glands are negative. Tiny low-density bilateral renal lesions, too small to characterize. Kidneys are otherwise negative. Bladder is decompressed and not well evaluated. Mild prominent size of the uterus, similar to prior exam. Few small exophytic isodense mass arising the fundus, possible fibroids. Abdominal aorta is normal caliber. Tiny umbilical hernia containing only fat. No adnexal mass identified. Trace free pelvic fluid. No free air. No bowel obstruction. No bowel wall thickening. Normal appendix. Stomach is decompressed and not optimally evaluated. No acute osseous abnormality. Mild scoliotic curvature of the thoracic and lumbar spine. Procedure Note Lionel Gutiérrez MD - 08/26/2024 [facility] [address] [place], [place] [address] EXAMINATION: CT ABD+PEL W CON CLINICAL HISTORY: Abdominal pain COMPARISON: 08/03/2024 DATE/TIME: 08/26/2024 4:48 PM TECHNIQUE: Multiplanar CT images of the abdomen and pelvis were obtained.IV contrast: uneventful intravenous administration of 100 mL Isovue 300.Oral contrast: None. A dose lowering technique was used for this procedure, which may include,but is not limited to, dose reduction technique, automated exposurecontrol, the use of iterative reconstruction, and ALARA (As Low AsReasonably Achievable) / Image Gently techniques. FINDINGS: Liver is negative. Gallbladder is negative. Spleen isnegative. Pancreas is negative. Gallbladder is negative. Adrenal glandsare negative. Tiny low-density bilateral renal lesions, too small tocharacterize. Kidneys are otherwise negative. Bladder is decompressedand not well evaluated. Mild prominent size of the uterus, similar toprior exam. Few small exophytic isodense mass arising the fundus,possible fibroids. Abdominal aorta is normal caliber. Tiny umbilical hernia containing only fat. No adnexal mass identified.Trace free pelvic fluid. No free air. No bowel obstruction. No bowelwall thickening. Normal appendix. Stomach is decompressed and notoptimally evaluated. No acute osseous abnormality. Mild scolioticcurvature of the thoracic and lumbar spine. IMPRESSION: 1. No definite acute abnormality identified. 2. Trace free pelvic fluid. 3. Mildly prominent size of the uterus, uncertain significance. 4. Other chronic or nonurgent findings as above. Referred By: Interpreted By: Lionel Gutiérrez MD, 08/26/2024 5:40 PM Vicente Ac NP CT Final Result * (ABNORMAL) URINALYSIS (08/26/2024 3:12 PM CDT) Only the most recent of2 resultswithin the time period is included. SPECIMEN TYPE URINE CLEAN CATCH 08/26/2024 3:26 PM CDT [facility] COLOR (U) LIGHT ORANGE 08/26/2024 3:58 PM CDT [facility] TRANSPARENCY TURBID 08/26/2024 3:58 PM CDT [facility] SPECIFIC GRAVITY (U) 1.031(H) 1.001 - 1.030 08/26/2024 3:58 PM CDT [facility] U PH 6.5 5.0 - 9.0 08/26/2024 3:58 PM CDT [facility] LEUKOCYTES (U) 25(A) NEGATIVE 08/26/2024 3:58 PM CDT [facility] NITRITES NEGATIVE NEGATIVE 08/26/2024 3:58 PM CDT [facility] PROTEIN RANDOM (U) 50(H) <30 MG/DL 08/26/2024 3:58 PM CDT [facility] GLUCOSE (U) NORMAL NORMAL MG/DL 08/26/2024 3:58 PM CDT [facility] KETONES MG/DL (U) TRACE(A) NEGATIVE MG/DL 08/26/2024 3:58 PM CDT [facility] UROBILINOGEN NORMAL NORMAL MG/DL 08/26/2024 3:58 PM CDT [facility] BILIRUBIN (U) NEGATIVE NEGATIVE MG/DL 08/26/2024 3:58 PM CDT [facility] BLOOD (U) 3+(A) NEGATIVE 08/26/2024 3:58 PM CDT [facility] MUCUS FEW /LPF 08/26/2024 3:58 PM CDT [facility] WBC/HPF 8(H) <6 /HPF 08/26/2024 3:58 PM CDT [facility] RBC/HPF >100(H) <6 /HPF 08/26/2024 3:58 PM CDT [facility] SQUAMOUS EPITHELIALS RARE /HPF 08/26/2024 3:58 PM CDT [facility] URINE SPECIMEN OBTAINED BY CLEAN CATCH PROCEDURE / Unknown 08/26/2024 3:12 PM CDT us Vicente Ac NP URINE ORDERABLES Final Result Performing Organization Address City/[facility]/ZIP Co de Phone Number [facility] [address] [place] [address], * (ABNORMAL) CULTURE URINE (08/26/2024 3:12 PM CDT) SPEC DESCRIPTION URINE CLEAN CATCH 08/26/2024 4:08 PM CDT [facility] SPECIAL REQUESTS NO SPECIAL REQUEST 08/26/2024 4:08 PM CDT [facility] CULTURE RESULT 10,000-49,000 COL/ML DIPHTHEROIDS SUSCEPTIBILTY NOT ROUTINELY PERFORMED. SAVING ISOLATE FOR 5 DAYS. CONTACT MICROBIOLOGY DEPARTMENT IF FURTHER WORKUP IS INDICATED. (A) 08/28/2024 12:37 PM CDT [facility] URINE SPECIMEN OBTAINED BY CLEAN CATCH PROCEDURE / Unknown 08/26/2024 3:12 PM CDT 08/26/2024 4:40 PM CDT Vicente Ac NP MICROBIOLOGY - GENERAL ORDERAB LES Final Result Performing Organization Address City/[facility] Co de Phone Number [facility] [address] [place] [address], [place] [phone] * POCT urine (08/26/2024 3:11 PM CDT) Only the most recent of2 resultswithin the time period is included. URINE HCG TEST NEGATIVE Internal Control: VALID us Vicente Ac NP POINT OF CARE TEST ORDERABLES Final Result * CBC W/DIFF AUTOMATED (08/26/2024 2:53 PM CDT) Only the most recent of3 resultswithin the time period is included. WBC 5.31 4.5 - 11.0 x10'3/uL 08/26/2024 3:09 PM CDT [facility] RBC 4.60 4.20 - 5.40 x10'6/uL 08/26/2024 3:09 PM CDT [facility] HGB 13.3 12.0 - 16.0 G/DL 08/26/2024 3:09 PM CDT [facility] HCT 40.1 38.0 - 48.0 % 08/26/2024 3:09 PM CDT [facility] MCV 87.2 81.0 - 99.0 FL 08/26/2024 3:09 PM CDT [facility] MCH 28.9 27.0 - 31.0 PG 08/26/2024 3:09 PM CDT [facility] MCHC 33.2 32.0 - 36.0 G/DL 08/26/2024 3:09 PM CDT [facility] RDW 12.5 11.5 - 14.5 % 08/26/2024 3:09 PM CDT [facility] PLT 271 130 - 400 x10'3/uL 08/26/2024 3:09 PM CDT [facility] MPV 10.5 9.3 - 12.2 FL 08/26/2024 3:09 PM CDT [facility] DIFFERENTIAL TYPE AUTOMATED DIFFERENTIAL 08/26/2024 3:09 PM CDT [facility] NEUTROPHILS % 62.7 % 08/26/2024 3:09 PM CDT [facility] LYMPHOCYTES % 27.9 % 08/26/2024 3:09 PM CDT [facility] MONOCYTES % 6.2 % 08/26/2024 3:09 PM CDT [facility] EOSINOPHILS 2.1 % 08/26/2024 3:09 PM CDT [facility] BASOPHILS 0.9 % 08/26/2024 3:09 PM CDT [facility] IMMATURE GRANS % 0.2 % 08/27/19 3:09 PM CDT [facility] ABS. NEUTROPHILS 3.33 1.80 - 7.70 x10'3/uL 08/26/2024 3:09 PM CDT [facility] ABS. LYMPHOCYTES 1.48 1.00 - 4.80 x10'3/uL 08/26/2024 3:09 PM CDT [facility] ABS. MONOCYTES 0.33 0.24 - 0.86 x10'3/uL 08/26/2024 3:09 PM CDT [facility] ABS. EOSINOPHILS 0.11 0.04 - 0.36 x10'3/uL 08/26/2024 3:09 PM CDT [facility] ABS. BASOPHILS 0.05 0.01 - 0.08 x10'3/uL 08/26/2024 3:09 PM CDT [facility] ABS. IMMATURE GRANULOCYTES 0.01 0.00 - 0.49 x10'3/uL 08/26/2024 3:09 PM CDT [facility] 08/26/2024 2:53 PM CDT us Vicente Ac NP LABORATORY Final Result [facility] [address] [place] [address], [place] [phone] * US PELVIC TV NON OB (08/03/2024 3:43 PM AIRCRAFT MACHINIST HELPER) Anatomical Region Laterality Modality Pelvis Ultrasound 08/03/2024 3:43 PM AIRCRAFT MACHINIST HELPER Impressions 08/03/2024 3:47 PM AIRCRAFT MACHINIST HELPER =====IMPRESSION:===== 1. No acute findings within the pelvis. Normal sonographic appearance of the endometrium. 2. Fibroid uterus. Ordered By: KIMBERLY TREJO Interpreted By: Elder King MD, 08/03/2024 3:43 PM Narrative 08/03/2024 3:47 PM AIRCRAFT MACHINIST HELPER [address] [address] EXAMINATION: Ultrasound pelvis non-OB EXAM DATE/TIME: 08/03/2024 [...] Procedure Note Elder King MD - 08/03/2024 [facility] [address] [place], [place] [address] EXAMINATION: Ultrasound pelvis non-OB EXAM DATE/TIME: 08/03/2024 [...] MD, 08/03/2024 3:43 PM us Kimberly Trejo [place] ULTRASOUND Final Result * URINALYSIS, AUTO, COMPLETE (08/03/2024 12:45 PM AIRCRAFT MACHINIST HELPER) SPECIMEN TYPE URINE CLEAN CATCH 08/03/2024 12:44 PM [facility] COLOR (U) LIGHT YELLOW 08/03/2024 3:58 PM [facility] TRANSPARENCY CLEAR 08/03/2024 3:58 PM [facility] SPECIFIC GRAVITY (U) 1.020 1.001 - 1.030 08/03/2024 3:58 PM [facility] U PH 7.5 5.0 - 9.0 08/03/2024 3:58 PM [facility] LEUKOCYTES (U) NEGATIVE NEGATIVE 08/03/2024 3:58 PM [facility] NITRITES NEGATIVE NEGATIVE 08/03/2024 3:58 PM [facility] PROTEIN RANDOM (U) NEGATIVE <30 MG/DL 08/03/2024 3:58 PM [facility] GLUCOSE (U) NORMAL NORMAL MG/DL 08/03/2024 3:58 PM [facility] KETONES MG/DL (U) NEGATIVE NEGATIVE MG/DL 08/03/2024 3:58 PM [facility] UROBILINOGEN NORMAL NORMAL MG/DL 08/03/2024 3:58 PM [facility] BILIRUBIN (U) NEGATIVE NEGATIVE MG/DL 08/03/2024 3:58 PM [facility] BLOOD (U) NEGATIVE NEGATIVE 08/03/2024 3:58 PM [facility] MUCUS RARE /LPF 08/03/2024 3:58 PM [facility] WBC/HPF <1 <6 /HPF 08/03/2024 3:58 PM [facility] RBC/HPF 3 <6 /HPF 08/03/2024 3:58 PM AIRCRAFT MACHINIST HELPER [facility] SQUAMOUS EPITHELIALS RARE /HPF 08/03/2024 3:58 PM AIRCRAFT MACHINIST HELPER [facility] URINE SPECIMEN OBTAINED BY CLEAN CATCH PROCEDURE / Unknown 08/03/2024 12:45 PM AIRCRAFT MACHINIST HELPER Robb ADORNO URINE ORDERABLES Final Res ult Performing Organization Address [facility] Co de Phone Number [facility] [address] [place] [address], [place] [phone] * HCG QUANTITATIVE SERUM (08/03/2024 12:45 PM AIRCRAFT MACHINIST HELPER) Only the most recent of2 resultswithin the time period is included. HCG QUANTITATIVE 105 MIU/ML 08/03/19 1:18 PM AIRCRAFT MACHINIST HELPER [facility] Comment: WEEKS OF REFERENCE RANGES Non- [...] 10,000 - 100,000 08/03/2024 12:4 5 PM AIRCRAFT MACHINIST HELPER Robb ADORNO LABORATORY Final Resu lt Performing Organization Address City/[facility] Co de Phone Number [facility] [address] [place] [address], [place] [phone] * US OB TRANSVAG (07/15/2024 12:29 PM AIRCRAFT MACHINIST HELPER) Anatomical Region Laterality Modality Abdomen, Pelvis Ultrasound 07/15/2024 12:5 2 PM AIRCRAFT MACHINIST HELPER Impressions 07/15/2024 1:07 PM AIRCRAFT MACHINIST HELPER IMPRESSION: 1. Intrauterine gestational sac, yolk sac, and pole. Estimated gestation based on crown-rump length measurement is 6 weeks 5 days +/- 4 days with estimated date of delivery 03/05/2025. This varies by 4 days from reported clinical estimate of gestational age. 2. Left ovarian corpus lutein. 3. Probable uterine leiomyomas of 1.3 cm, 1.3 cm, and 0.8 cm. Ordered By: AMISH VARGAS Interpreted By: Jay Hernandez, 07/15/2024 12:52 PM Narrative 07/15/2024 1:07 PM AIRCRAFT MACHINIST HELPER [address] [address] IMAGING STUDIES: US OB TRANSVAG DATE: 07/15/2024 [...] Procedure Note Jay Hernandez MD - 07/15/2024 [facility] [address] [place], [place] [address] IMAGING STUDIES: US OB TRANSVAGDATE: 07/15/2024 11:48AM [...] 1.3 cm, and 0.8 cm. Ordered By: AMISH VARGAS Interpreted By: Jay Hernandez, 07/15/2024 12:52 PM us Amish Vargas FOUNDRY HAND ULTRASOUND Final Result from Last 3 Months Insurance [employer] Care Teams Salesperson [employer] Relationship Specialty Start Date End Date Kristopher Askew MD [address] [facility] [place] [address] PCP - General FAMILY PRACTICE 01/11/24
--- NOTE | 2024-09-28 13:12 | P.HP_ITS ---
History of Present Illness History of Present Illness Consent: Risks, benefits, and alternatives have been discussed and questions answered. Patient agrees to proceed with procedure. Chief complaint: cervical spondylosis, cervicalgia Narrative: Jenny Johnson is a 33 year old female with chronic, recalcitrant and disabling bilateral cervical pain secondary to degenerative spondylosis with failure to respond to aggressive conservative measures including PT, oral and topical analgesics, opioid and nonopioid analgesics, rest, time and activity/behavioral modification over the past 1-2 years who presents for diagnostic/prognostic medial branch blocks of the bilateral C2-3, C3, C4 medial branches(#2) addressing the bilateral C2-3, C3-4 facet joints under fluoroscopic guidance and with contrast control. Review of Systems Review of Systems: Patient denies any new infectious, allergic, cardiopulmonary, neurologic or constitutional symptoms or changes in activity tolerance or exercise capacity including new or progressive SOB/AL, peripheral edema, productive cough, dysuria, nausea/vomiting, diarrhea, weight change, fevers/chills/night sweats, new or progressive neurologic deficit, cognitive or mood changes since last seen, except as documented in the HPI. All systems reviewed & are unremarkable except as noted in HPI and below PMFSH Past Medical History Medical History Chronic pain Elective COPD (chronic obstructive pulmonary disease) Hypertension Asthma Scoliosis Pre-diabetes Surgical History Surgical History Previous back surgery H/O: Family History Family History Mother Hypertension Asthma Heart disease Diabetes mellitus Acute myocardial infarction Father Acute myocardial infarction Heart disease Grandparent Asthma Diabetes mellitus Hypertension Heart disease Social History Social History Smoking status: Never smoker Second hand tobacco smoke exposure: No Alcohol intake: never Substance use: never Substance use type: does not use Living arrangements: with family Spiritual care concerns: No Meds Home Medications and Allergies Home Medications ?Medication ?Instructions ?Recorded ?Confirmed ?Type albuterol sulfate 90 mcg/actuation 2 puff inhalation Q6H PRN 08/07/23 09/17/24 Rx aerosol inhaler bronchospasm #8.5 grams cetirizine 10 mg tablet 10 mg PO DAILY 08/07/23 09/17/24 History diclofenac sodium 50 mg 50 mg PO DAILY 08/07/23 09/17/24 History tablet,delayed release epinephrine 0.3 mg/0.3 mL 0.3 mg (0.3 mL) IM Q4H PRN 08/07/23 09/17/24 Rx injection, auto-injector (EpiPen anaphylaxis #2 ea 2-Deyvi) fluticasone furoate 50 1 inh inhalation Q24H 08/07/23 09/17/24 History mcg/actuation blister powder for inhalation cyclobenzaprine 10 mg tablet 10 mg PO TID #60 tabs 12/10/23 09/17/24 Rx sumatriptan succinate 50 mg tablet See Rx Instructions PO .COMPLEX 03/25/24 09/17/24 Rx #30 tabs topiramate 50 mg tablet 50 mg PO BID #90 tabs 03/25/24 09/17/24 Rx phentermine 37.5 mg capsule 37.5 mg PO DAILY #30 caps 06/01/24 09/17/24 Rx lactobacillus combination no.9 4 4,000 mmu cells PO DAILY 07/23/24 09/17/24 History billion cell capsule (Adult 50 Plus Probiotic) multivitamin (Daily Multi-Vitamin 1 tablet PO DAILY 07/23/24 09/17/24 History tablet) buprenorphine 5 mcg/hour weekly 1 patch transdermal Q7D chronic 09/06/24 09/17/24 Rx transdermal patch pain 28 days #4 ea chlorophyll copper complex 10 mg 50 mg PO DAILY 09/17/24 09/17/24 History tablet cholecalciferol (vitamin D3) 50 50 mcg PO DAILY 09/17/24 09/17/24 History mcg (2,000 unit) tablet (D3 DOTS) Allergies Allergy/AdvReac Type Severity Reaction Status Date / Time No Known Allergies Allergy Verified 09/17/24 13:36 Exam Narrative: The patient's physical exam is essentially unchanged from prior examination on 08/16/24. Specifically, patient demonstrates normal lung capacity, tidal volume and respiratory rate without wheezes, crackles, rales or rubs. Heart rate and rhythm are regular without murmurs, gallops or rubs. No JVD. Pulses 2+ globally without increasing peripheral edema. AAOx3 with no evidence of confusion, int oxication or altered mental state, NC/AT without acute distress or altered consciousness. Speech, cognition, mood, insight and judgment at baseline and within normal limits. Assessment and Plan Assessment and plan (1) Cervicalgia: Code(s): M54.2 - Cervicalgia Status: Acute (2) Cervical spondylosis: Code(s): M47.812 - Spondylosis without myelopathy or radiculopathy, cervical region Status: Acute Assessment and Plan: [facility]/prognostic medial branch blocks of the bilateral C2-3, C3, C4 medial branches(#2) addressing the bilateral C2-3, C3-4 facet joints under fluoroscopic guidance and with contrast control.
--- NOTE | 2024-09-28 13:14 | WPDHPUPDATE1 ---
History and Physical Update Update Date/Time: 09/28/24 13:14 History and Physical has been reviewed, including an updated exam of the patient. There are NO changes in the patient's condition. Risks, benefits, and alternatives have been discussed and questions answered. Patient agrees to proceed with procedure.
--- NOTE | 2024-09-28 13:16 | P.OP_ITS ---
Procedure Note - Detailed Date of Procedure 09/28/24 Pre-op Diagnosis cervical spondylosis, cervicalgia Post-op Diagnosis Same Procedure Performed Diagnostic Bilateral Cervical Medial Branch Blocks at C2-3, C3, C4 Blocking the Bilateral C2-3, C3-4 Facet Joints Under Fluoroscopic Guidance and with Contrast Control (4 levels blocked). Surgeon Maykel Nguyen MD Pocket Builder None. Anesthesia Local Description of Procedure INFORMED CONSENT: Risks, benefits and alternatives to the procedure were discussed in detail with the patient who expressed explicit understanding and consent to proceed. Patient was informed verbally and in written form regarding the risks associated with the procedure including the low risk of serious infection, bleeding/bruising, allergic reaction, nerve or organ injury, paralysis, procedural site pain or discomfort, worsening pain and/or mobility, failure to treat and/or disfigurement. The patient expressed explicit understanding and consent to proceed. All materials required for the procedure were available prior to procedure start. Site and side was marked prior to procedure and confirmed in the presence of the patient. PROCEDURE IN DETAIL: The patient was brought to the procedural suite and placed in the left lateral decubitus position with head stabilized. Patient was made comfortable with use of pillows under the head and between the knees and ankles. Skin overlying the injection site on the affected side was prepared broadly with tinted 3ml ChloraPrep applicator and draped in a sterile manner. Aseptic technique was used throughout. The endplates of the vertebral bodies at the site(s) of interest were aligned in the lateral fluoroscopic view relative to the patient. Image was optimized for visualization of the pars interarticularis at each target site. Local anesthesia was established by infiltration with approximately 5 mL of 1% lidocaine via a 1-1/2 inch 27- gauge needle. A 25-gauge 3.5 inch Quincke spinal needle was advanced until the needle tip contacted the periosteum of the pars interarticularis at the target site, the right C2-3 medial branch. AP view was utilized to confirm the appropriate placement of the needle tip just lateral to the periosteum at the center point of the pars in terarticularis. In the lateral view, 0.25 mL of Omnipaque 300 contrast medium was injected after negative aspiration for CSF, blood or other bodily fluid, showing appropriate extra-articular spread of contrast without evidence of intravascular, foraminal or intrathecal placement. A 0.25 mL solution of 2.0% PF Lidocaine was injected after negative repeat aspiration. Appropriate spread of the injectate was confirmed with washout of previously injected contrast. No parasthesias were elicited. Needle was removed completely intact without difficulty. The same procedure was repeated for all additional intended levels/structures treated on the ipsilateral side, the right C3, C4 medial branches with identical methodology modified to compensate for different location, with similar results and no evidence of complication. The same procedure was then repeated for all additional intended levels/structures treated on the contralateral side, the left C2-3, C3, C4 medial branches, with identical methodology and positioning modified to compensate for the contralateral location, with similar results and no evidence of complication. Images were saved and documented in the patient chart. Patient's skin was cleaned and sterile bandage applied. The patient tolerated the procedure well. The patient was transported to the recovery area in stable condition where they were observed for an appropriate amount of time prior to discharge, without evidence of complication. Patient was instructed on the appropriate completion of a pain diary over the next 12-24 hours. The patient was instructed to avoid excessive activity for the next 48 hours, including climbing and frequent use of stairs. Showers only for 48 hours. They were instructed not to drive or operate heavy machinery for 24 hours. They are to monitor for severe headaches, fevers, chills, night sweats, erythema/swelling at the site or any other signs of infection, bleeding/bruising, bowel or bladder changes as well as new pain, weakness or numbness in the upper or lower extremity. Should they notice these changes, they are instructed to call our office immediately or report directly to the nearest Emergency Department if no answer or if after posted office hours. COMPLICATIONS: None. COMMENTS: None. CONTRAST WASTED: 28.5mL Omnipaque 300. Complications No immediate complications Condition Stable Disposition Same day [facility] Billing Surgery - Charge Forward: Surgery Billing
[2024-09-28 14:15] VITALS: BP 128/82; PULSE 85; RESP 16; TEMP 36.2; O2SAT 100
[2024-09-28 14:55] VITALS: BP 137/98; PULSE 83; RESP 18; O2SAT 100
[2024-09-28 15:16] VITALS: BP 112/64; PULSE 80; RESP 16; O2SAT 100
[2024-09-28 15:20] VITALS: BP 126/90; PULSE 71; RESP 18; O2SAT 100
== END 2024-09-28 15:30 | disposition home or self-care (01) ==
PROVIDERS: PCP Family Medicine; Visit Provider Anesthesiology Pain Medicine
PROC: (CPT 64490; principal; 2024-09-28 13:30)
DX: M54.2 Cervicalgia (principal); M47.812 Spondylosis without myelopathy or radiculopathy, cervical region; G89.29 Other chronic pain; J44.9 Chronic obstructive pulmonary disease, unspecified; I10 Essential (primary) hypertension; R73.03 Prediabetes; M41.9 Scoliosis, unspecified; Z79.51 Long term (current) use of inhaled steroids; Z98.890 Other specified postprocedural states; Z98.1 Arthrodesis status; Z82.49 Family history of ischemic heart disease and other diseases of the circulatory system
CPT/HCPCS: 64490; 64491; 64492; 99199; J0702; J2003; Q9965

== ENCOUNTER 2024-10-05 11:01 | Outpatient (CLI) | payer OTHER, SELFPAY ==
--- OUTSIDE RECORDS SUMMARY | 2024-10-05 12:35 | XMS_ITS | Clinical Summary ---
Author Organization [facility] Address [address] [place] [address] Care Team Providers Care Bonding Equipment Operator Name Role Phone Kristopher Askew MD Primary Care Provider [phone] Source Comments [facility],non-owned Affiliates and Associated Physician Practices is amultiple site organization consisting of ambulatory clinics and hospital sitesin [place], [place], [place] and [place]. This disclosure is being madepursuant to the Care Everywhere program and may not contain all information available regarding this patient. Last updated 18.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
--- OUTSIDE RECORDS SUMMARY | 2024-10-05 12:35 | XMS_ITS | Encounter Summary ---
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 04/20/2022 04/20/2022 04/30/2022 3:05 AM SALVAGE WINDER AND INSPECTOR Influenza, adult 04/20/2022 04/20/2022 04/27/2022 3:05 AM SALVAGE WINDER AND INSPECTOR documented as of this encounter Care Teams Roll Winder Relationship Specialty Start Date End Date Magy Medina NP PCP - General 05/10/19 documented as of this encounter
--- OUTSIDE RECORDS SUMMARY | 2024-10-05 12:35 | XMS_ITS | Clinical Summary ---
Author Organization [facility] Address [address] [place] [address] Care Team Providers Care Tool Marker Name Role Phone Kristopher Askew MD Primary Care Provider [phone] Allergies Active Allergy Reactions Criticality Noted Date Comments Latex Rash Medium 02/14/2017 Medications albuterol sulfate HFA 108 (90 BASE) MCG/ACT inhaler Inhale 2 puffs into the lungs every 6 (six) hours as needed for Wheezing. Active hydroCHLOROthiazid e (HYDRODIURIL) 25 MG tablet Take 1 tablet (25 mg total) by mouth every morning. 30 tablet 08/02/19 23 Active ondansetron (ZOFRAN-ODT) 4 MG disintegrating tablet Take 1 tablet (4 mg total) by mouth every 8 (eight) hours as needed. 10 tablet 08/03/19 25 Active prochlorperazine (COMPAZINE) [address] 1 suppository (25 mg total) rectally every 12 (twelve) hours as needed for Nausea. 12 suppository 10/01/19 25 025 Active Active Problems Problem Noted Date Diagnosed Date Lumbar radiculopathy 06/16/2017 Encounters Date Type Department Care Team Description 09/30/2024 8:22 AM CDT - 09/30/2024 11:01 AM CDT Emergency [facility] [place] [address] Federica Vargas NP Headache; Vomiting Discharge Disposition: Home or Self Care (Routine Discharge) 09/30/2024 Travel 08/26/2024 2:25 PM CDT - 08/26/2024 8:17 PM CDT Emergency [facility] [place] [address] Vicente Ac NP Headache; Abdominal Pain Discharge Disposition: Home or Self Care (Routine Discharge) 08/26/2024 Travel 08/03/2024 12:30 PM [employer]YWOOD FACTORY WORKER - 08/03/2024 4:50 PM [employer]YWOOD FACTORY WORKER Emergency [facility] [place] [address] Kimberly Trejo PA Abdominal Pain Discharge Disposition: Home or Self Care (Routine Discharge) 08/03/2024 Travel 07/15/2024 10:13 AM PLYWOOD FACTORY WORKER - 07/15/2024 1:58 PM PLYWOOD FACTORY WORKER Emergency [facility] [place] [address] Federica Vargas NP Abdominal Pain ; Rectal [...] Sex Assigned at Female 07/15/2024 9:45 AM PLYWOOD FACTORY WORKER Legal Sex Female 7:19 PM CDT Gender Identity Not on file Sexual Orientation Not on file Last Filed Vital Signs Vital Sign Reading Time Taken Comments Blood Pressure 126/84 09/30/2024 10:21 AM CDT Pulse 68 09/30/2024 10:21 AM CDT Temperature 36.4 C (97.5 F) 09/30/2024 8:11 AM CDT Respiratory Rate 20 09/30/2024 10:21 AM CDT Oxygen Saturation 100% 09/30/2024 10:21 AM CDT Inhaled Oxygen Concentration - - Weight 70.8 kg (156 lb) 09/30/2024 8:11 AM CDT Height 154.9 cm (5' 1 ) 09/30/2024 8:11 AM CDT Body Mass Index 29.48 09/30/2024 8:11 AM CDT Plan of Treatment Health Maintenance [...] HPV 10/31/2021 COVID-19 Vaccine ( season) 2024 DTaP, Tdap and Td Vaccines [...] Procedure Name Priority Date/Time Associated Diagnosis Comments LACTIC ACID W REFLEX (SEPSIS) STAT 09/30/2024 8:16 AM CDT COMPREHENSIVE METABOLIC PANEL STAT 09/30/2024 8:15 AM CDT CBC W/DIFF AUTOMATED STAT 09/30/2024 8:15 AM CDT LIPASE Routine 08/26/2024 6:22 PM CDT COMPREHENSIVE [...] OB COMP TV STAT 08/03/2024 3:43 PM [employer] FA[employer] CT ABD+PEL W CON STAT 08/03/2024 2:50 PM PLYWOOD FACTORY WORKER HCG QUANT (SERUM)-CHORIONIC GONADOTROPIN STAT 08/03/2024 12:45 PM PLYWOOD FACTORY WORKER URINALYSIS, AUTO, COMPLETE STAT 08/03/2024 12:45 PM PLYWOOD FACTORY WORKER COMPREHENSIVE METABOLIC PANEL STAT 08/03/2024 12:45 PM PLYWOOD FACTORY WORKER CBC W/DIFF AUTOMATED STAT 08/03/2024 12:45 PM PLYWOOD FACTORY WORKER US OB TRANSVAG STAT 07/15/2024 12:29 PM PLYWOOD FACTORY WORKER POCT URINE (BACK OFFICE) STAT 07/15/2024 10:48 AM PLYWOOD FACTORY WORKER HC URINALYSIS AUTO W/O MICRO STAT 07/15/2024 10:45 AM PLYWOOD FACTORY WORKER COMPREHENSIVE METABOLIC PANEL STAT 07/15/2024 10:39 AM PLYWOOD FACTORY WORKER CBC W/DIFF AUTOMATED STAT 07/15/2024 10:39 AM PLYWOOD FACTORY WORKER HCG QUANT (SERUM)-CHORIONIC GONADOTROPIN STAT 07/15/2024 10:37 AM PLYWOOD FACTORY WORKER from Last 3 Months Results * LACTIC ACID W REFLEX (SEPSIS) (09/30/2024 8:16 AM CDT) LACTIC ACID VENOUS 1.1 0.4 - 2.0 MMOL/L 09/30/2024 9:10 AM CDT [facility] 09/30/2024 8:16 AM CDT Federica Vargas NP LABORATORY Final Result [facility] [address] [place] [address], [place] [phone] * (ABNORMAL) COMPREHENSIVE METABOLIC PANEL (09/30/2024 8:15 AM CDT) Only the most recent of4 resultswithin the time period is included. Pathologist [facility] [place] GLUCOSE 115(H) 70 - 99 MG/DL 09/30/2024 9:12 AM CDT [facility] BUN 11 7 - 18 MG/DL 09/30/2024 9:12 AM CDT [facility] CREATININE S/P/B 0.74 0.55 - 1.02 MG/DL 09/30/2024 9:12 AM CDT [facility] SODIUM S/P/B 140 136 - 145 MMOL/L 09/30/2024 9:12 AM CDT [facility] POTASSIUM S/P/B 3.6 3.5 - 5.1 MMOL/L 09/30/2024 9:12 AM CDT [facility] CHLORIDE S/P/B 109 97 - 115 MMOL/L 09/30/2024 9:12 AM CDT [facility] CO2 26.2 21 - 32 MMOL/L 09/30/2024 9:12 AM CDT [facility] CALCIUM S/P/B 8.9 8.5 - 10.1 MG/DL 09/30/2024 9:12 AM [facility] BILIRUBIN TOTAL S/P/B 0.6 0.2 - 1.2 MG/DL 09/30/2024 9:12 AM [facility] Comment: THIS ASSAY IS NOT RECOMMENDED FOR PATIENTS UNDERGOING TREATMENT WITH ELTROMBOPAG DUE TO THE POTENTIAL FOR FALSELY ELEVATED RESULTS. TOTAL PROTEIN S/P/B 8.0 6.4 - 8.2 G/DL 09/30/2024 9:12 AM T [facility] ALBUMIN S/P/B 3.9 3.4 - 5.0 G/DL 09/30/2024 9:12 AM [facility] AST 13(L) 15 - 37 U/L 09/30/2024 9:12 AM [facility] ALT 18 14 - 55 U/L 09/30/2024 9:12 AM [facility] ALKALINE PHOSPHATASE S/P/B 54 50 - 136 U/L 09/30/2024 9:12 AM [facility] ANION GAP 4.8 2 - 10 MMOL/L 09/30/2024 9:12 AM [facility] BUN CREATININE RATIO 14.8 6 - 26 09/30/2024 9:12 AM [facility] A/G RATIO 1.0 1.0 - 2.0 RATIO 09/30/2024 9:12 AM [facility] GFR ESTIMATE >90 >90 ML/MIN/1.7 3 M2 09/30/2024 9:12 AM [facility] Comment: NOTE: eGFR is not calculated for patients <18 years of age or gender unknown. This is an estimated GFR calculation using the new CKD EPI creatinine equation without race and so does not require a correction factor for race. This estimated GFR should not be used for calculating drug doses. 09/30/2024 8:1 5 AM CDT Federica Vargas NP LABORATORY Final Result [facility] [address] [place] [address], [place] [phone] * CBC W/DIFF AUTOMATED (09/30/2024 8:15 AM CDT) Only the most recent of4 resultswithin the time period is included. WBC 4.58 4.5 - 11.0 x10'3/uL 09/30/2024 10:16 AM CDT [facility] RBC 4.67 4.20 - 5.40 x10'6/uL 09/30/2024 10:16 AM CDT [facility] HGB 13.6 12.0 - 16.0 G/DL 09/30/2024 10:16 AM CDT [facility] HCT 41.6 38.0 - 48.0 % 09/30/2024 10:16 AM CDT [facility] MCV 89.1 81.0 - 99.0 FL 09/30/2024 10:16 AM CDT [facility] MCH 29.1 27.0 - 31.0 PG 09/30/2024 10:16 AM CDT [facility] MCHC 32.7 32.0 - 36.0 G/DL 09/30/2024 10:16 AM CDT [facility] RDW 12.5 11.5 - 14.5 % 09/30/2024 10:16 AM CDT [facility] PLT 338 130 - 400 x10'3/uL 09/30/2024 10:16 AM CDT [facility] MPV 9.9 9.3 - 12.2 FL 09/30/2024 10:16 AM CDT [facility] DIFFERENTIAL TYPE AUTOMATED DIFFERENTIAL 09/30/2024 10:16 AM T [facility] NEUTROPHILS % 55.0 % 09/30/2024 10:16 AM T [facility] LYMPHOCYTES % 32.5 % 09/30/2024 10:16 AM CDT [facility] MONOCYTES % 8.1 % 09/30/2024 10:16 AM T [facility] EOSINOPHILS 3.1 % 09/30/2024 10:16 AM T [facility] BASOPHILS 1.3 % 09/30/2024 10:16 AM T [facility] IMMATURE GRANS % 0.0 % 10/01/19 10:16 AM T [facility] ABS. NEUTROPHILS 2.52 1.80 - 7.70 x10'3/uL 09/30/2024 10:16 AM T [facility] ABS. LYMPHOCYTES 1.49 1.00 - 4.80 x10'3/uL 09/30/2024 10:16 AM [facility] ABS. MONOCYTES 0.37 0.24 - 0.86 x10'3/uL 09/30/2024 10:16 AM T [facility] ABS. EOSINOPHILS 0.14 0.04 - 0.36 x10'3/uL 09/30/2024 10:16 AM T [facility] ABS. BASOPHILS 0.06 0.01 - 0.08 x10'3/uL 09/30/2024 10:16 AM [facility] ABS. IMMATURE GRANULOCYTES 0.00 0.00 - 0.49 x10'3/uL 09/30/2024 10:16 AM T [facility] 09/30/2024 8:15 AM CDT us Federica Javed Vargas PASSENGER TRAIN BRAKER LABORATORY Final Result [facility] [address] [place] [address], [place] [phone] * LIPASE (08/26/2024 6:22 PM CDT) LIPASE 70 13 - 75 UNITS/L 08/26/2024 7:01 PM CDT [facility] 08/26/2024 6:22 PM CDT Vicente Chloe Ac PASSENGER TRAIN BRAKER LABORATORY Final Result Performing Organization Address City/[facility]/ZIP Co de Phone Number [facility] [address] [place] [address], [place] [phone] * CT ABD+PEL W IV CON ONLY [...] 5:40 PM Narrative 08/26/2024 5:46 PM CDT [facility] [address] [place], [place] [address] EXAMINATION: CT ABD+PEL W CON CLINICAL HISTORY: [...] Procedure Note Lionel Gutiérrez MD - 08/26/[address] [address] EXAMINATION: CT ABD+PEL W CON CLINICAL HISTORY: [...] By: Lionel Gutiérrez MD, 08/26/2024 5:40 PM us Vicente Ac PASSENGER TRAIN BRAKER CT Final Result * (ABNORMAL) URINALYSIS (08/26/2024 3:12 PM CDT) Only the most recent of2 resultswithin the time period is included. SPECIMEN TYPE URINE CLEAN CATCH 08/26/2024 3:26 PM CDT [facility] COLOR (U) LIGHT ORANGE 08/26/2024 3:58 PM CDT [facility] TRANSPARENCY TURBID 08/26/2024 3:58 PM CDT [facility] SPECIFIC GRAVITY (U) 1.031(H) 1.001 - 1.030 08/26/2024 3:58 PM CDT [facility] U PH 6.5 5.0 - 9.0 08/26/2024 3:58 PM CDT [facility] LEUKOCYTES (U) 25(A) NEGATIVE 08/26/2024 3:58 PM CDT [facility] NITRITES NEGATIVE NEGATIVE 08/26/2024 3:58 PM CDT [facility] PROTEIN RANDOM (U) 50(H) <30 MG/DL 08/26/2024 3:58 PM CDT [facility] GLUCOSE (U) NORMAL NORMAL MG/DL 08/26/2024 3:58 PM CDT [facility] KETONES MG/DL (U) TRACE(A) NEGATIVE MG/DL 08/26/2024 3:58 PM CDT [facility] UROBILINOGEN NORMAL NORMAL MG/DL 08/26/2024 3:58 PM CDT [facility] BILIRUBIN (U) NEGATIVE NEGATIVE MG/DL 08/26/2024 3:58 PM CDT [facility] BLOOD (U) 3+(A) NEGATIVE 08/26/2024 3:58 PM CDT [facility] MUCUS FEW /LPF 08/26/2024 3:58 PM CDT [facility] WBC/HPF 8(H) <6 /HPF 08/26/2024 3:58 PM CDT [facility] RBC/HPF >100(H) <6 /HPF 08/26/2024 3:58 PM CDT [facility] SQUAMOUS EPITHELIALS RARE /HPF 08/26/2024 3:58 PM CDT [facility] URINE SPECIMEN OBTAINED BY CLEAN CATCH PROCEDURE / Unknown 08/26/2024 3:12 PM CDT us Vicente Ac PASSENGER TRAIN BRAKER URINE ORDERABLES Final Result [facility] [address] [place] [address], [place] [phone] * (ABNORMAL) CULTURE URINE (08/26/2024 3:12 PM CDT) SPEC DESCRIPTION URINE CLEAN CATCH 08/26/2024 4:08 PM CDT [facility] SPECIAL REQUESTS NO SPECIAL REQUEST 08/26/2024 4:08 PM CDT [facility] CULTURE RESULT 10,000-49,000 COL/ML DIPHTHEROIDS SUSCEPTIBILTY NOT ROUTINELY PERFORMED. SAVING ISOLATE FOR 5 DAYS. CONTACT MICROBIOLOGY DEPARTMENT IF FURTHER WORKUP IS INDICATED. (A) 08/28/2024 12:37 PM CDT [facility] URINE SPECIMEN OBTAINED BY CLEAN CATCH PROCEDURE / Unknown 08/26/2024 3:12 PM CDT 08/26/2024 4:40 PM CDT us Vicente Ac NP MICROBIOLOGY - GENERAL ORDERAB LES Final Result [facility] [address] [place] [address], [place] [phone] * POCT urine (08/26/2024 3:11 PM CDT) Only the most recent of2 resultswithin the time period is included. URINE HCG TEST NEGATIVE Internal Control: VALID us Vicente Ac NP POINT OF CARE TEST ORDERABLES Final Result * US PELVIC TV NON OB (08/03/2024 3:43 PM PLYWOOD FACTORY WORKER) Anatomical Region Laterality Modality Pelvis Ultrasound 08/03/2024 3:43 PM [employer] FA[employer]ORY WORKER Impressions 08/03/2024 3:47 PM [employer]OD FACTORY WORKER =====IMPRESSION:===== 1. No acute findings within the pelvis. Normal sonographic appearance of the endometrium. 2. Fibroid uterus. Ordered By: KIMBERLY TREJO Interpreted By: Elder King MD, 08/03/2024 3:43 PM Narrative 08/03/2024 3:47 PM [employer]OD FA[employer]ORY WORKER [facility] [address] [place], [place] [address] EXAMINATION: Ultrasound pelvis non-OB EXAM DATE/TIME: 08/03/2024 [...] Procedure Note Elder King MD - 08/03/2024 [facility] [address] [place], [place] [address] EXAMINATION: Ultrasound pelvis non-OB EXAM DATE/TIME: 08/03/2024 [...] MD, 08/03/2024 3:43 PM us Kimberly Trejo [place] ULTRASOUND Final Result * URINALYSIS, AUTO, COMPLETE (08/03/2024 12:45 PM PLYWOOD FACTORY WORKER) SPECIMEN TYPE URINE CLEAN CATCH 08/03/2024 12:44 PM [employer] FA[employer] WORKER [facility] COLOR (U) LIGHT YELLOW 08/03/2024 3:58 PM [employer]WOOD FACTORY WORKER [facility] TRANSPARENCY CLEAR 08/03/2024 3:58 PM [employer]OD FACTORY WORKER [facility] SPECIFIC GRAVITY (U) 1.020 1.001 - 1.030 08/03/2024 3:58 PM [employer]WOOD FACTORY WORKER [facility] U PH 7.5 5.0 - 9.0 08/03/2024 3:58 PM [employer]WOOD FACTORY WORKER [facility] LEUKOCYTES (U) NEGATIVE NEGATIVE 08/03/2024 3:58 PM PLYWOOD FACTORY WORKER [facility] NITRITES NEGATIVE NEGATIVE 08/03/2024 3:58 PM PLYWOOD FACTORY WORKER [facility] PROTEIN RANDOM (U) NEGATIVE <30 MG/DL 08/03/2024 3:58 PM [employer]WOOD FACTORY WORKER [facility] GLUCOSE (U) NORMAL NORMAL MG/DL 08/03/2024 3:58 PM PL[employer]WOOD FACTORY WORKER [facility] KETONES MG/DL (U) NEGATIVE NEGATIVE MG/DL 08/03/2024 3:58 PM PL[employer]WOOD FACTORY WORKER [facility] UROBILINOGEN NORMAL NORMAL MG/DL 08/03/2024 3:58 PM PLYWOOD FACTORY WORKER [facility] BILIRUBIN (U) NEGATIVE NEGATIVE MG/DL 08/03/2024 3:58 PM PLYWOOD FACTORY WORKER [facility] BLOOD (U) NEGATIVE NEGATIVE 08/03/2024 3:58 PM PL[employer]WOOD FACTORY WORKER [facility] MUCUS RARE /LPF 08/03/2024 3:58 PM PL[employer]WOOD FACTORY WORKER [facility] WBC/HPF <1 <6 /HPF 08/03/2024 3:58 PM PLYWOOD FACTORY WORKER [facility] RBC/HPF 3 <6 /HPF 08/03/2024 3:58 PM PLYWOOD FACTORY WORKER [facility] SQUAMOUS EPITHELIALS RARE /HPF 08/03/2024 3:58 PM [employer]WOOD FACTORY WORKER [facility] URINE SPECIMEN OBTAINED BY CLEAN CATCH PROCEDURE / Unknown 08/03/2024 12:45 PM PL[employer]WOOD FA[employer]ORY WORKER us Robb ADORNO URINE ORDERABLES Final Res ult [facility] [address] [place] [address], * HCG QUANTITATIVE SERUM (08/03/2024 12:45 PM PLYWOOD FACTORY WORKER) Only the most recent of2 resultswithin the time period is included. HCG QUANTITATIVE 105 MIU/ML 08/03/19 1:18 PM PLYWOOD FACTORY WORKER [facility] Comment: WEEKS OF REFERENCE RANGES [...] 10,000 - 100,000 08/03/2024 12:4 5 PM PLY[employer]OD FACTORY WORKER us Robb ADORNO LABORATORY Final Resu lt [facility] [address] [place] [address], * US OB TRANSVAG (07/15/2024 12:29 PM PLYWOOD FACTORY WORKER) Anatomical Region Laterality Modality Abdomen, Pelvis Ultrasound 07/15/2024 12:5 2 PM [employer]YWOOD FACTORY WORKER Impressions 07/15/2024 1:07 PM PLYWOOD FACTORY WORKER IMPRESSION: 1. Intrauterine gestational sac, yolk sac, [...] 07/15/2024 12:52 PM Narrative 07/15/2024 1:07 PM [employer]YWOOD FACTORY WORKER [facility] [address] [place], [place] [address] IMAGING STUDIES: US OB TRANSVAG DATE: 07/15/2024 [...] Procedure Note Jay Hernandez MD - 07/15/2024 [facility] [address] [place], [place] [address] IMAGING STUDIES: US OB TRANSVAGDATE: 07/15/2024 11:48AM [...] By: Jay Hernandez, 07/15/2024 12:52 PM us Federica Vargas PASSENGER TRAIN BRAKER ULTRASOUND Final Result from Last 3 Months Insurance [employer] Care Teams Tool Marker Relationship Specialty Start Date End Date Kristopher Askew MD [address] [id number] PCP - General FAMILY PRACTICE 01/11/24
--- OUTSIDE RECORDS SUMMARY | 2024-10-05 12:35 | XMS_ITS | Referral Summary ---
Author Organization [facility] Address [address] [place] [phone] Care Team Providers Care Azure Architect Name Role Phone Lissypoonammario Magy GARIBAY Primary Care Provider [phone] Allergies Active Allergy Reactions Criticality Noted Date [...] on file Legal Sex Female 6:43 PM HEAVY DUTY CUSTODIAN Gender Identity Not on file Sexual Orientation Not on file Last Filed Vital Signs Vital Sign Reading Time Taken Comments Blood Pressure 119/85 04/20/2022 12:33 PM HEAVY DUTY CUSTODIAN Pulse 88 04/20/2022 12:33 PM HEAVY DUTY CUSTODIAN Temperature 37.3 C (99.2 F) 04/20/2022 10:40 AM HEAVY DUTY CUSTODIAN Respiratory Rate 18 04/20/2022 12:3 3 PM HEAVY DUTY CUSTODIAN Oxygen Saturation 99% 04/20/2022 12: 33 PM HEAVY DUTY CUSTODIAN Inhaled Oxygen Concentration - - Weight 88.9 kg (195 lb 15.8 oz) 04/20/2022 8:35 AM HEAVY DUTY CUSTODIAN Height 157.5 cm (5' 2 ) 04/20/2022 8:35 AM HEAVY DUTY CUSTODIAN Body Mass Index 35.85 04/20/2022 8:35 AM HEAVY DUTY CUSTODIAN Plan of Treatment Not on file Insurance [facility] Care Teams Azure Architect Relationship Specialty Start Date End Date Magy Medina NP PCP - General 05/10/19
--- OUTSIDE RECORDS SUMMARY | 2024-10-05 12:35 | XMS_ITS | Clinical Summary ---
Author Organization [facility] Address [address] [place] [phone] Care Team Providers Care Crane Service Technician Name Role Phone Lissypoonammario Magy GARIBAY Primary Care Provider [phone] Allergies Active Allergy Reactions Criticality Noted Date [...] on file Legal Sex Female 6:43 PM MARINE UNDERWRITER Gender Identity Not on file Sexual Orientation Not on file Obstetrics History Last Filed Vital Signs Vital Sign Reading Time Taken Comments Blood Pressure 119/85 04/20/2022 12:33 PM MARINE UNDERWRITER Pulse 88 04/20/2022 12:33 PM MARINE UNDERWRITER Temperature 37.3 C (99.2 F) 04/20/2022 10:40 AM MARINE UNDERWRITER Respiratory Rate 18 04/20/2022 12:3 3 PM MARINE UNDERWRITER Oxygen Saturation 99% 04/20/2022 12: 33 PM MARINE UNDERWRITER Inhaled Oxygen Concentration - - Weight 88.9 kg (195 lb 15.8 oz) 04/20/2022 8:35 AM MARINE UNDERWRITER Height 157.5 cm (5' 2 ) 04/20/2022 8:35 AM MARINE UNDERWRITER Body Mass Index 35.85 04/20/2022 8:35 AM MARINE UNDERWRITER Plan of Treatment Health Maintenance Due Date Last Done Comments Cervical Cancer Screening 1991 Depression Screening 1991 Hepatitis C Screening 1991 Varicella Vaccines (1 of 2 - 13+ 2-dose series) 10/31/2004 Regular Well Visit/Exam 18-64 10/31/2009 DTaP/Tdap/Td Vaccine (8 - Td or Tdap) 12/15/2024 12/15/2014, 12/15/2014, 04/01/1998, Additional history exists Influenza Vaccine (Season Ended) 2025 04/28/2007 Hepatitis B Screening Completed 03/16/2002 , 04/01/1998, 01/01/1997 HPV Vaccines Completed 10/28/2007, 06/09, 04/28/2007 Pneumococcal vaccine <65 Aged Out No longer eligible based on patient's age to complete this topic Insurance [facility] Care Teams Crane Service Technician Relationship Specialty Start Date End Date Magy Medina NP [facility] - General 05/10/19
== END 2024-10-05 11:02 | disposition home or self-care (01) ==
LOC: ANHLAB 11:08
PROVIDERS: PCP Family Medicine; Visit Provider Anesthesiology
DX: Z41.9 Encounter for procedure for purposes other than remedying health state, unspecified (principal)
CPT/HCPCS: 36415; 86850; 86900; 86901

== ENCOUNTER 2024-10-14 16:39 | Observation (INO) | payer OTHER, SELFPAY ==
[2024-09-30 09:27] VITALS: BMI 29.5
--- NOTE | 2024-09-30 09:28 | PC.NURSE ---
Report to the Outpatient Waiting Room, entrance under the green pavilion located off [facility], at time __0600__ on date __10/13/24__. Planned Procedure Time: __729__.? Time changes happen often and if your time is changed the preop area will call you the afternoon before. - You and your visitor will be asked to self-screen and do not enter if you have any COVID symptoms. Please call surgeon if you need to reschedule. - A mask is optional within the hospital at this time. Patients may have clear liquids (water, carbonated beverages, clear teas, apple juice) until 3 hours prior to surgery with a maximum of 20 ounces. - No food from midnight until time of surgery and no smoking, or chewing tobacco (or any form of nicotine). No chewing gum, candy or mints. Take only the following medications with a SIP of water on the morning of surgery: ___albuterol if needed, sumatriptan if needed, topiramate if needed____ DO NOT STOP ANY OF YOUR OTHER PRESCRIPTION MEDICATIONS PRIOR TO SURGERY EXCEPT THE FOLLOWING Hold all vitamins and supplements for 3 days per anesthesiologist. Medications to discontinue per physician please HOLD diclofenac per surgeon Please no make-up, nail armenian, hairspray, perfume, deodorant, or body powder the day of surgery.? No jewelry (including any body piercings) or valuables the day of surgery, leave them at home.? Please take a shower or bath the night before, or the morning of, surgery with an antibacterial soap.? Wear comfortable, loose fitting clothing. - Jewelry must be removed prior to entering the operating room.? Rings and piercings that are not removed may be cut off. - The hospital will not accept responsibility for valuables.? - Please leave all valuables, including medications, at home the day of surgery. If you are going home after surgery, a licensed company truck driver must drive you home.? - NO public transportation without another adult if you receive anesthesia. - We recommend that an adult stay with you for 24 hours following discharge. - We also recommend that you do not drive, make important decision, drink alcoholic beverages, or take any drugs that were not prescribed by your health care provider for at least 24 hours after your discharge time. Follow any additional instructions given to you from your surgeon. Telephone instructions given to ___Diamond___and asked if any additional questions and then verbalized understanding. Patient advised to call surgeon office or pre surgery nurse liaison [phone] if any additional questions.
[2024-10-13] VITALS (20 sets, daily range): BP systolic 105–138; BP diastolic 58–86; PULSE 55–94; RESP 12–20; TEMP 36.3–36.8; O2SAT 99–100
--- OUTSIDE RECORDS SUMMARY | 2024-10-13 01:32 | XMS_ITS | Encounter Summary ---
Author Organization [facility] Care Team Providers Care Compliance Program Manager Name Role Phone Magy Medina [place] Primary Care Provider [phone] Encounter Details Date Type Department Care Team (Latest Contact Info) Description 03/07/2015 Orders Only [facility] CLINCONV Provider, MD Barry [address] [place] [id number] Social History Tobacco Use Types Packs/Day Years Used Date Smoking Tobacco: Never Assessed Comments Unknown Sex and Gender Information Value Date Recorded Sex Assigned at Not on file Legal Sex Female 6:43 PM DESKTOP PUBLISHING ASSOCIATE Gender Identity Not on file Sexual Orientation [...] the result is from a facility outside [facility] . 04/20/2022 04/20/2022 04/30/2022 3:05 AM DESKTOP PUBLISHING ASSOCIATE Influenza, adult 04/20/2022 04/20/2022 04/27/2022 3:05 AM DESKTOP PUBLISHING ASSOCIATE documented as of this encounter Care Teams Compliance Program Manager Relationship Specialty Start Date End Date Magy Medina NP PCP - General 05/10/19 documented as of this encounter
--- OUTSIDE RECORDS SUMMARY | 2024-10-13 01:32 | XMS_ITS | Referral Summary ---
[facility] Organization [facility] Address [address] [place] [phone] Care Team Providers Care Volunteer Specialist Name Role Phone Lissybabar Magy [place] Primary Care Provider [phone] Allergies Active Allergy Reactions Criticality Noted Date [...] on file Legal Sex Female 6:43 PM HAT FINISHING MATERIALS PREPARER Gender Identity Not on file Sexual Orientation Not on file Last Filed Vital Signs Vital Sign Reading Time Taken Comments Blood Pressure 119/85 04/20/2022 12:33 PM HAT FINISHING MATERIALS PREPARER Pulse 88 04/20/2022 12:33 PM HAT FINISHING MATERIALS PREPARER Temperature 37.3 C (99.2 F) 04/20/2022 10:40 AM HAT FINISHING MATERIALS PREPARER Respiratory Rate 18 04/20/2022 12:3 3 PM HAT FINISHING MATERIALS PREPARER Oxygen Saturation 99% 04/20/2022 12: 33 PM HAT FINISHING MATERIALS PREPARER Inhaled Oxygen Concentration - - Weight 88.9 kg (195 lb 15.8 oz) 04/20/2022 8:35 AM HAT FINISHING MATERIALS PREPARER Height 157.5 cm (5' 2) 04/20/2022 8:35 AM HAT FINISHING MATERIALS PREPARER Body Mass Index 35.85 04/20/2022 8:35 AM HAT FINISHING MATERIALS PREPARER Plan of Treatment Not on file Insurance [facility] Care Teams Volunteer Specialist Relationship Specialty Start Date End Date Magy Medina NP PCP - General 05/10/19
--- OUTSIDE RECORDS SUMMARY | 2024-10-13 01:32 | XMS_ITS | Clinical Summary ---
Author Organization [facility] Address [address] [place] [address] Care Team Providers Care Core Analyst Name Role Phone Kristopher Askew MD Primary Care Provider [phone] Allergies Active Allergy Reactions Criticality Noted Date [...] Nausea. 12 suppository 10/01/19 25 025 Active Problems Problem Noted Date Diagnosed Date Lumbar radiculopathy 06/16/2017 Encounters Date Type Department Care Team Description 09/30/2024 8:22 AM CDT - 09/30/2024 11:01 AM CDT Emergency [facility] [place] [address] Federica Faith NP Headache; Vomiting Discharge Disposition: Home or Self Care (Routine Discharge) 09/30/2024 Travel 08/26/2024 2:25 PM CDT - 08/26/2024 8:17 PM CDT Emergency [facility] [place] [address] Vicente Ac NP Headache; Abdominal Pain Discharge Disposition: Home or Self Care (Routine Discharge) 08/26/2024 Travel 08/03/2024 12:30 PM DISCHARGE COORDINATOR - 08/03/2024 4:50 PM DISCHARGE COORDINATOR Emergency [facility] [place] [address] Kimberly Trejo PA Abdominal Pain Discharge Disposition: Home or Self Care (Routine Discharge) 08/03/2024 Travel from Last 3 Months Immunizations Immunization [...] Sex Assigned at Female 07/15/2024 9:45 AM DISCHARGE COORDINATOR Legal Sex Female 7:19 PM CDT Gender [...] 8:11 AM CDT Height 154.9 cm (5' 1) 09/30/2024 8:11 AM CDT Body Mass Index [...] OB COMP TV STAT 08/03/2024 3:[address] ABD+PEL W CON STAT 08/03/2024 2:50 PM DISCHARGE COORDINATOR HCG QUANT (SERUM)-CHORIONIC GONADOTROPIN STAT 08/03/2024 12:45 PM DISCHARGE COORDINATOR URINALYSIS, AUTO, COMPLETE STAT 08/03/2024 12:45 PM DISCHARGE COORDINATOR COMPREHENSIVE METABOLIC PANEL STAT 08/03/2024 12:45 PM DISCHARGE COORDINATOR CBC W/DIFF AUTOMATED STAT 08/03/2024 12:45 PM DISCHARGE COORDINATOR from Last 3 Months Results * LACTIC ACID W REFLEX (SEPSIS) (09/30/2024 8:16 AM CDT) LACTIC ACID VENOUS 1.1 0.4 - 2.0 MMOL/L 09/30/2024 9:10 AM CDT [facility] 09/30/2024 8:16 AM CDT us Federica Faith NP LABORATORY Final Result [facility] [address] [place] [address], [place] [phone] * (ABNORMAL) COMPREHENSIVE METABOLIC PANEL (09/30/2024 8:15 AM CDT) Only the most recent of3 resultswithin the time period is included. GLUCOSE 115(H) 70 - 99 MG/DL 09/30/2024 9:12 AM CDT [facility] BUN 11 7 - 18 MG/DL 09/30/2024 9:12 AM CDT [facility] CREATININE S/P/B 0.74 0.55 - 1.02 MG/DL 09/30/2024 9:12 AM CDT [facility] SODIUM S/P/B 140 136 - 145 MMOL/L 09/30/2024 9:12 AM T [facility] POTASSIUM S/P/B 3.6 3.5 - 5.1 MMOL/L 09/30/2024 9:12 AM CDT [facility] CHLORIDE S/P/B 109 97 - 115 MMOL/L 09/30/2024 9:12 AM T [facility] CO2 26.2 21 - 32 MMOL/L 09/30/2024 9:12 AM T [facility] CALCIUM S/P/B 8.9 8.5 - 10.1 MG/DL 09/30/2024 9:12 AM T [facility] BILIRUBIN TOTAL S/P/B 0.6 0.2 - 1.2 MG/DL 09/30/2024 9:12 AM T [facility] Comment: THIS ASSAY IS NOT RECOMMENDED FOR PATIENTS UNDERGOING TREATMENT WITH ELTROMBOPAG DUE TO THE POTENTIAL FOR FALSELY ELEVATED RESULTS. TOTAL PROTEIN S/P/B 8.0 6.4 - 8.2 G/DL 09/30/2024 9:12 AM CDT [facility] ALBUMIN S/P/B 3.9 3.4 - 5.0 G/DL 09/30/2024 9:12 AM T [facility] AST 13(L) 15 - 37 U/L 09/30/2024 9:12 AM CDT [facility] ALT 18 14 - 55 U/L 09/30/2024 9:12 AM T [facility] ALKALINE PHOSPHATASE S/P/B 54 50 - 136 U/L 09/30/2024 9:12 AM CDT [facility] ANION GAP 4.8 2 - 10 MMOL/L 09/30/2024 9:12 AM CDT [facility] BUN CREATININE RATIO 14.8 6 - 26 09/30/2024 9:12 AM CDT [facility] A/G RATIO 1.0 1.0 - 2.0 RATIO 09/30/2024 9:12 AM CDT [facility] GFR ESTIMATE >90 >90 ML/MIN/1.7 3 M2 09/30/2024 9:12 AM CDT [facility] Comment: NOTE: eGFR is not calculated for patients <18 years of age or gender unknown. This is an estimated GFR calculation using the new CKD EPI creatinine equation without race and so does not require a correction factor for race. This estimated GFR should not be used for calculating drug doses. 09/30/2024 8:15 AM CDT us Federica Faith NP LABORATORY Final Result [facility] [address] [place] [address], [place] [phone] * CBC W/DIFF AUTOMATED (09/30/2024 8:15 AM CDT) Only the most recent of3 resultswithin the time period is included. WBC 4.58 4.5 - 11.0 x10'3/uL 09/30/2024 10:16 AM CDT [facility] RBC 4.67 4.20 - 5.40 x10'6/uL 09/30/2024 10:16 AM CDT [facility] HGB 13.6 12.0 - 16.0 G/DL 09/30/2024 10:16 AM CDT [facility] HCT 41.6 38.0 - 48.0 % 09/30/2024 10:16 AM CDT [facility] MCV 89.1 81.0 - 99.0 FL 09/30/2024 10:16 AM CDT [facility] MCH 29.1 27.0 - 31.0 PG 09/30/2024 10:16 AM CDT [facility] MCHC 32.7 32.0 - 36.0 G/DL 09/30/2024 10:16 AM CDT [facility] RDW 12.5 11.5 - 14.5 % 09/30/2024 10:16 AM CDT [facility] PLT 338 130 - 400 x10'3/uL 09/30/2024 10:16 AM CDT [facility] MPV 9.9 9.3 - 12.2 FL 09/30/2024 10:16 AM CDT [facility] DIFFERENTIAL TYPE AUTOMATED DIFFERENTIAL 09/30/2024 10:16 AM CDT [facility] NEUTROPHILS % 55.0 % 09/30/2024 10:16 AM CDT [facility] LYMPHOCYTES % 32.5 % 09/30/2024 10:16 AM CDT [facility] MONOCYTES % 8.1 % 09/30/2024 10:16 AM CDT [facility] EOSINOPHILS 3.1 % 09/30/2024 10:16 AM CDT [facility] BASOPHILS 1.3 % 09/30/2024 10:16 AM CDT [facility] IMMATURE GRANS % 0.0 % 10/01/19 10:16 AM CDT [facility] ABS. NEUTROPHILS 2.52 1.80 - 7.70 x10'3/uL 09/30/2024 10:16 AM CDT [facility] ABS. LYMPHOCYTES 1.49 1.00 - 4.80 x10'3/uL 09/30/2024 10:16 AM CDT [facility] ABS. MONOCYTES 0.37 0.24 - 0.86 x10'3/uL 09/30/2024 10:16 AM CDT [facility] ABS. EOSINOPHILS 0.14 0.04 - 0.36 x10'3/uL 09/30/2024 10:16 AM CDT [facility] ABS. BASOPHILS 0.06 0.01 - 0.08 x10'3/uL 09/30/2024 10:16 AM CDT [facility] ABS. IMMATURE GRANULOCYTES 0.00 0.00 - 0.49 x10'3/uL 09/30/2024 10:16 AM CDT [facility] 09/30/2024 8:15 AM CDT us Federica Faith SKIN DIVING TEACHER LABORATORY Final Result [facility] [address] [place] [address], [place] [phone] * LIPASE (08/26/2024 6:22 PM CDT) LIPASE 70 13 - 75 UNITS/L 08/26/2024 7:01 PM CDT [facility] 08/26/2024 6:22 PM CDT Vicente Ac SKIN DIVING TEACHER LABORATORY Final Result [facility] [address] [place] [address], [place] [phone] * CT ABD+PEL W IV CON ONLY [...] 5:40 PM Narrative 08/26/2024 5:46 PM CDT [address] [address] EXAMINATION: CT ABD+PEL W CON CLINICAL HISTORY: [...] Procedure Note Lionel Gutiérrez MD - 08/26/2024 [facility] [address] [place], [place] [address] EXAMINATION: CT ABD+PEL W CON CLINICAL HISTORY: [...] * (ABNORMAL) URINALYSIS (08/26/2024 3:12 PM CDT) SPECIMEN TYPE URINE CLEAN CATCH 08/26/2024 3:26 PM CDT [facility] COLOR (U) LIGHT ORANGE 08/26/2024 3:58 PM CDT [facility] TRANSPARENCY TURBID 08/26/2024 3:58 PM CDT [facility] SPECIFIC GRAVITY (U) 1.031(H) 1.001 - 1.030 08/26/2024 3:58 PM CDT [facility] U PH 6.5 5.0 - 9.0 08/26/2024 3:58 PM CDT [facility] LEUKOCYTES (U) 25(A) NEGATIVE 08/26/2024 3:58 PM CDT [facility] NITRITES NEGATIVE NEGATIVE 08/26/2024 3:58 PM CDT [facility] PROTEIN RANDOM (U) 50(H) <30 MG/DL 08/26/2024 3:58 PM CDT [facility] GLUCOSE (U) NORMAL NORMAL MG/DL 08/26/2024 3:58 PM CDT [facility] KETONES MG/DL (U) TRACE(A) NEGATIVE MG/DL 08/26/2024 3:58 PM CDT [facility] UROBILINOGEN NORMAL NORMAL MG/DL 08/26/2024 3:58 PM CDT [facility] BILIRUBIN (U) NEGATIVE NEGATIVE MG/DL 08/26/2024 3:58 PM CDT [facility] BLOOD (U) 3+(A) NEGATIVE 08/26/2024 3:58 PM CDT [facility] MUCUS FEW /LPF 08/26/2024 3:58 PM CDT [facility] WBC/HPF 8(H) <6 /HPF 08/26/2024 3:58 PM CDT [facility] RBC/HPF >100(H) <6 /HPF 08/26/2024 3:58 PM CDT [facility] SQUAMOUS EPITHELIALS RARE /HPF 08/26/2024 3:58 PM CDT [facility] URINE SPECIMEN OBTAINED BY CLEAN CATCH PROCEDURE / Unknown 08/26/2024 3:12 PM CDT us Vicente Ac NP URINE ORDERABLES Final Result Performing Organization Address City/[facility]/ZIP Co de Phone Number [facility] [address] [place] [address], [place] [phone] * (ABNORMAL) CULTURE URINE (08/26/2024 3:12 PM CDT) SPEC DESCRIPTION URINE CLEAN CATCH 08/26/2024 4:08 PM CDT [facility] SPECIAL REQUESTS NO SPECIAL REQUEST 08/26/2024 4:08 PM CDT [facility] CULTURE RESULT 10,000-49,000 COL/ML DIPHTHEROIDS SUSCEPTIBILTY NOT ROUTINELY PERFORMED. SAVING ISOLATE FOR 5 DAYS. CONTACT MICROBIOLOGY DEPARTMENT IF FURTHER WORKUP IS INDICATED. (A) 08/28/2024 12:37 PM CDT [facility] URINE SPECIMEN OBTAINED BY CLEAN CATCH PROCEDURE / Unknown 08/26/2024 3:12 PM CDT 08/26/2024 4:40 PM CDT us Vicente Ac NP MICROBIOLOGY - GENERAL ORDERAB LES Final Result [facility] [address] [place] [address], [place] [phone] * POCT urine (08/26/2024 3:11 PM CDT) URINE HCG TEST NEGATIVE Internal Control: VALID us Vicente Ac NP POINT OF CARE TEST ORDERABLES Final Result * US PELVIC TV NON OB (08/03/2024 3:43 PM DISCHARGE COORDINATOR) Anatomical Region Laterality Modality Pelvis Ultrasound 08/03/2024 3:43 PM DISCHARGE COORDINATOR Impressions 08/03/2024 3:47 PM DISCHARGE COORDINATOR =====IMPRESSION:===== 1. No acute findings within the pelvis. Normal sonographic appearance of the endometrium. 2. Fibroid uterus. Ordered By: KIMBERLY TREJO Interpreted By: Elder King MD, 08/03/2024 3:43 PM Narrative 08/03/2024 3:47 PM DISCHARGE COORDINATOR [address] [address] EXAMINATION: Ultrasound pelvis non-OB EXAM DATE/TIME: 08/03/2024 [...] Procedure Note Elder King MD - 08/03/2024 [facility] [address] [place], [place] [address] EXAMINATION: Ultrasound pelvis non-OB EXAM DATE/TIME: 08/03/2024 [...] King MD, 08/03/2024 3:43 PM us Kimberly ADORNO ULTRASOUND Final Result * URINALYSIS, AUTO, COMPLETE (08/03/2024 12:45 PM DISCHARGE COORDINATOR) SPECIMEN TYPE URINE CLEAN CATCH 08/03/2024 12:44 PM DISCHARGE COORDINATOR [facility] COLOR (U) LIGHT YELLOW 08/03/2024 3:58 PM DISCHARGE COORDINATOR [facility] TRANSPARENCY CLEAR 08/03/2024 3:58 PM [facility] SPECIFIC GRAVITY (U) 1.020 1.001 - 1.030 08/03/2024 3:58 PM DISCHARGE COORDINATOR [facility] U PH 7.5 5.0 - 9.0 08/03/2024 3:58 PM [facility] LEUKOCYTES (U) NEGATIVE NEGATIVE 08/03/2024 3:58 PM [facility] NITRITES NEGATIVE NEGATIVE 08/03/2024 3:58 PM [facility] PROTEIN RANDOM (U) NEGATIVE <30 MG/DL 08/03/2024 3:58 PM [facility] GLUCOSE (U) NORMAL NORMAL MG/DL 08/03/2024 3:58 PM [facility] KETONES MG/DL (U) NEGATIVE NEGATIVE MG/DL 08/03/2024 3:58 PM [facility] UROBILINOGEN NORMAL NORMAL MG/DL 08/03/2024 3:58 PM [facility] BILIRUBIN (U) NEGATIVE NEGATIVE MG/DL 08/03/2024 3:58 PM [facility] BLOOD (U) NEGATIVE NEGATIVE 08/03/2024 3:58 PM [facility] MUCUS RARE /LPF 08/03/2024 3:58 PM [facility] WBC/HPF <1 <6 /HPF 08/03/2024 3:58 PM DISCHARGE COORDINATOR [facility] RBC/HPF 3 <6 /HPF 08/03/2024 3:58 PM DISCHARGE COORDINATOR [facility] SQUAMOUS EPITHELIALS RARE /HPF 08/03/2024 3:58 PM DISCHARGE COORDINATOR [facility] URINE SPECIMEN OBTAINED BY CLEAN CATCH PROCEDURE / Unknown 08/03/2024 12:45 PM DISCHARGE COORDINATOR Robb ADORNO URINE ORDERABLES Final Res ult [facility] [address] [place] [address], [place] [phone] * HCG QUANTITATIVE SERUM (08/03/2024 12:45 PM DISCHARGE COORDINATOR) HCG QUANTITATIVE 105 MIU/ML 08/03/19 1:18 PM DISCHARGE COORDINATOR [facility] Comment: WEEKS OF REFERENCE RANGES [...] 10,000 - 100,000 08/03/2024 12:4 5 PM DISCHARGE COORDINATOR Robb ADORNO LABORATORY Final Resu lt [facility] [address] [place] [address], [place] [phone] from Last 3 Months Insurance [employer] Care Teams Core Analyst Relationship Specialty Start Date End Date Kristopher Askew MD [address] [place], [place] [id number] PCP - General FAMILY PRACTICE 01/11/24
--- OUTSIDE RECORDS SUMMARY | 2024-10-13 01:32 | XMS_ITS | Clinical Summary ---
Author Organization [facility] Address [address] [place] [id number] Care Team Providers Care Heel Seat Fitter Name Role Phone Lissybabar Magy GARIBAY Primary Care Provider [phone] Allergies Active Allergy Reactions Criticality Noted Date [...] file Legal Sex Female 6:43 PM BUSINESS RECORDS MANAGER Gender Identity Not on file Sexual Orientation Not on file Obstetrics History Last Filed Vital Signs Vital Sign Reading Time Taken Comments Blood Pressure 119/85 04/20/2022 12:33 PM BUSINESS RECORDS MANAGER Pulse 88 04/20/2022 12:33 PM BUSINESS RECORDS MANAGER Temperature 37.3 C (99.2 F) 04/20/2022 10:40 AM BUSINESS RECORDS MANAGER Respiratory Rate 18 04/20/2022 12:3 3 PM BUSINESS RECORDS MANAGER Oxygen Saturation 99% 04/20/2022 12: 33 PM BUSINESS RECORDS MANAGER Inhaled Oxygen Concentration - - Weight 88.9 kg (195 lb 15.8 oz) 04/20/2022 8:35 AM BUSINESS RECORDS MANAGER Height 157.5 cm (5' 2) 04/20/2022 8:35 AM BUSINESS RECORDS MANAGER Body Mass Index 35.85 04/20/2022 8:35 AM BUSINESS RECORDS MANAGER Plan of Treatment Health Maintenance Due [...] age to complete this topic Insurance [facility] Care Teams Heel Seat Fitter Relationship Specialty Start Date End Date Magy Medina NP [facility] - General 05/10/19
--- OUTSIDE RECORDS SUMMARY | 2024-10-13 01:32 | XMS_ITS | Clinical Summary ---
Author Organization [facility] [employer] Address [address] [place] [address] Care Team Providers Care Operations Management Trainee Name Role Phone Kristopher Askew MD Primary Care Provider [phone] Source Comments [facility],non-owned Affiliates and Associated Physician Practices is amultiple site organization consisting of ambulatory clinics and hospital sitesin [place], [place], [place] and [place]. This disclosure is being madepursuant to the Care Everywhere program and may not contain all information available regarding this patient. 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
[2024-10-13 06:50] LABS: BEDSIDEPREGUCG Negative (Negative)
[2024-10-13] MEDS: LACTATED RINGERS 1,000 ML 30 ML IV CONT ×2 (06:50→10:41)
[2024-10-13] MEDS: ACETAMINOPHEN 500 MG TABLET 1000 MG PO ×3 (06:54→19:32)
[2024-10-13] MEDS: KETOROLAC 15 MG/ML VIAL (*BKC) IV PUSH (06:55)
--- NOTE | 2024-10-13 07:15 | WPDANESEPPF ---
Anes - Initial Pre Proc Eval Procedure: Operation Date: 10/13/24 07:30 Proposed Procedures p Robotic Assisted Laparoscopic Hysterectomy with Bilateral Salpingectomy, with Oophorectomy - Mickey Jamil MD Date/Time: 10/13/24 07:15 Surgeon: Mickey Jamil MD Pre Op Diagnosis: pelvic pain, menorrhagia Patient Data Age: 33 Gender: F Height: 1.55 m Weight: 73.54 kg Last Vital Signs Temp 98.3 F 10/13/24 06:00 Pulse 89 10/13/24 06:00 Resp 16 10/13/24 06:00 BP 130/83 10/13/24 06:00 Pulse Ox 100 10/13/24 06:00 O2 Del Method Room Air 10/13/24 06:00 Allergies Allergy/AdvReac Type Severity Reaction Status Date / Time No Known Allergies Allergy Verified 10/13/24 06:08 Home Medications ?Medication ?Instructions ?Recorded ?Confirmed ?Type albuterol sulfate 90 mcg/actuation 2 puff inhalation Q6H PRN 08/07/23 10/13/24 Rx aerosol inhaler bronchospasm #8.5 grams cetirizine 10 mg tablet 10 mg PO DAILY 08/07/23 10/13/24 History diclofenac sodium 50 mg 50 mg PO DAILY PRN pain 08/07/23 09/30/24 History tablet,delayed release epinephrine 0.3 mg/0.3 mL 0.3 mg (0.3 mL) IM Q4H PRN 08/07/23 09/30/24 Rx injection, auto-injector (EpiPen anaphylaxis #2 ea 2-Deyvi) fluticasone furoate 50 1 inh inhalation Q24H 08/07/23 09/30/24 History mcg/actuation blister powder for inhalation lactobacillus combination no.9 4 4,000 mmu cells PO DAILY 07/23/24 10/13/24 History billion cell capsule (Adult 50 Plus Probiotic) multivitamin (Daily Multi-Vitamin 1 tablet PO DAILY 07/23/24 10/13/24 History tablet) cholecalciferol (vitamin D3) 50 50 mcg PO DAILY 09/17/24 10/13/24 History mcg (2,000 unit) tablet (D3 DOTS) cyclobenzaprine 10 mg tablet 10 mg PO TID PRN prn 09/30/24 09/30/24 History sumatriptan succinate 50 mg tablet 50 mg PO PRN 09/30/24 09/30/24 History topiramate 50 mg tablet 50 mg PO BID PRN PRN 09/30/24 09/30/24 History scopolamine base 1 mg over 3 days 1 patch transdermal ONCE #1 ea 10/05/24 10/13/24 Rx transdermal patch phentermine 37.5 mg capsule 37.5 mg PO DAILY PRN prn #30 caps 10/07/24 10/13/24 Rx Laboratory Tests 10/13/24 06:10 POC Urine HCG, Qual Negative (Negative) Patient hx anesthesia problems: post op nausea/vomiting Family hx anesthesia problems: none Results Review: All pre-operative results and documents have been reviewed as part of the pre-operative evaluation. [facility] Past Medical History Medical History Chronic pain Elective COPD (chronic obstructive pulmonary disease) Hypertension Asthma Scoliosis Pre-diabetes Surgical History Surgical History Previous back surgery H/O: Family History Family History Mother Hypertension Asthma Heart disease Diabetes mellitus Acute myocardial infarction Father Acute myocardial infarction Heart disease Grandparent Asthma Diabetes mellitus Hypertension Heart disease Social History Social History Smoking status: Never smoker Second hand tobacco smoke exposure: No Alcohol intake: never Substance use: never Substance use type: does not use Living arrangements: alone Spiritual care concerns: No Anes - Eval Final PreProcedure Day of Procedure 10/13/24 07:15 Patient weight: normal Heart: regular rate and rhythm Lungs: clear to auscultation Airway: Mallampati scale class II Neurological: alert and oriented Last oral intake: >/= 8 hours ASA classification: III Emergent: no Anesthetic plan: proceed Anesthesia type and monitoring: general ETT and standard monitoring Results Review: All pre-operative results and documents have been reviewed as part of the pre-operative evaluation. Informed Consent: The patient's anesthetic plan and its attendant risks and benefits were discussed with the patient/family/POA. Questions were solicited and answers provided to the satisfaction of the patient/family/POA.
--- NOTE | 2024-10-13 07:55 | WPDHPUPDATE1 ---
History and Physical Update Update Date/Time: 10/13/24 07:55 History and Physical has been reviewed, including an updated exam of the patient. There are NO changes in the patient's condition. Risks, benefits, and alternatives have been discussed and questions answered. Patient agrees to proceed with procedure.
[2024-10-13] MEDS: ceFAZolin 2 GM/D5W 50 ML 2 GM/50 ML BAG IVPB (08:01)
[2024-10-13] MEDS: BUPivacaine HCL 0.5% 10 ML AMP 20 ML INFILTRATE (09:04)
--- NOTE | 2024-10-13 09:30 | S_PTH ---
PATIENT: Jenny Johnson LOC: [facility] U#:[id number] AGE/SX: 33/F ROOM: 289 RE10/14/[address]: Mickey Jamil MD : 1990 BED: 00 DIS: 10/15/2024 SPEC #: [id number] RECD: 10/13/24 14:21 STATUS: SOUSyl REQ #: [id number] ELDER: 10/13/24 09:[address]: Mickey Jamil DEPT: [facility] Surgical RECD BY: Juliette Garcia ENTERED: 10/13/24 14:22 SP TYPE: Surgical OTHR DR: Kristopher Askew MD Tissues: A - Uterus Procedures: Hematoxylin and Eosin Stain Gross and Microscopic Level 5
[2024-10-13] MEDS: fentaNYL CITRATE INJ (*CRX) 100 MCG/2 ML VIAL 25 MCG IV PUSH ×8 (10:26→10:58)
[2024-10-13] MEDS: HYDROmorphone HCL INJ (*CRX) 1 MG/ML SYR 0.5 MG IV PUSH ×5 (10:49→11:09)
--- NOTE | 2024-10-13 11:08 | SUR.PHASEI ---
1105 - pt crying. states that she is having pain. Abdomen soft. no vaginal bleeding noted. Dr. Jamil called and aware of assessment. Dr. Jamil to come to PACU to assess
[2024-10-13] MEDS: MIDAZOLAM HCL (*CRX) 2 MG/2 ML VIAL IV PUSH (11:19)
--- NOTE | 2024-10-13 11:19 | SUR.PHASEI ---
1110 - dr garcia at bedside assessing pt.
[2024-10-13 11:50] LABS: Hematocrit 39.3 % (37.0-47.0); Hemoglobin 12.2 g/dL (12.0-15.0); Mean Corpuscular Hemoglobin 28.7 pg (26-34); Mean Corpuscular Volume 92.5 fl (80-100); Mean Platelet Volume 10.4 fl (7.4-10.4); Platelet Count Result 223 k/mm3 (150-375); Red Blood Count 4.25 M/mm3 (4.2-5.4); Red Cell Distribution Width 12.3 % (11.5-14.5); White Blood Count 14.2 K/mm3 (4.5-10.0)
[2024-10-13] MEDS: ONDANSETRON INJ 4 MG/2 ML VIAL IV PUSH (13:51)
[2024-10-13] MEDS: KETOROLAC 30 MG/ML VIAL (*BKC) IV PUSH ×2 (13:51→19:32)
[2024-10-13] MEDS: DEXTROSE 5%/LACTATED RINGERS 1,000 ML 125 ML IV CONT (14:13)
[2024-10-13] MEDS: HYDROmorphone HCL (*CRX) 2 MG TABLET 4 MG PO ×2 (14:54→20:30)
--- OUTSIDE RECORDS SUMMARY | 2024-10-13 16:15 | XMS_ITS | Clinical Summary ---
Author Organization [facility] Address [address] [place] [address] Care Team Providers Care Electronic Device Repairer Name Role Phone Kristopher Askew MD Primary Care Provider [phone] Source Comments [facility],non-owned Affiliates and Associated Physician Practices is amultiple site organization consisting of ambulatory clinics and hospital sitesin [place], [place], [place] and [place]. This disclosure is being madepursuant to the Care Everywhere program and may not contain all information available regarding this patient. 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
--- OUTSIDE RECORDS SUMMARY | 2024-10-13 16:15 | XMS_ITS | Encounter Summary ---
Author Organization [facility] Care Team Providers Care Traffic Control Technician Name Role Phone Magy Medina [place] Primary Care Provider Encounter Details Date Type Department Care Team (Latest Contact Info) Description 03/07/2015 Orders Only [facility] CLINCONV Provider, MD Barry [address] [place] [id number] Social History Tobacco Use Types Packs/Day Years Used Date Smoking Tobacco: Never Assessed Comments Unknown Sex and Gender Information Value Date Recorded Sex Assigned at Not on file Legal Sex Female 6:43 PM ESCROW CLOSER Gender Identity Not on file Sexual Orientation [...] the result is from a facility outside [facility] . 04/20/2022 04/20/2022 04/30/2022 3:05 AM ESCROW CLOSER Influenza, adult 04/20/2022 04/20/2022 04/27/2022 3:05 AM ESCROW CLOSER documented as of this encounter Care Teams Traffic Control Technician Relationship Specialty Start Date End Date Magy Medina NP PCP - General 05/10/19 documented as of this encounter
--- OUTSIDE RECORDS SUMMARY | 2024-10-13 16:15 | XMS_ITS | Referral Summary ---
Author Organization [facility] Address [address] [place] [id number] Care Team Providers Care Conference Planner Name Role Phone Lissybabar Magy PHOENIX Primary Care Provider [phone] Allergies Active Allergy Reactions Criticality Noted Date [...] on file Legal Sex Female 6:43 PM HEAD OF VISUAL MERCHANDISING Gender Identity Not on file Sexual Orientation Not on file Last Filed Vital Signs Vital Sign Reading Time Taken Comments Blood Pressure 119/85 04/20/2022 12:33 PM HEAD OF VISUAL MERCHANDISING Pulse 88 04/20/2022 12:33 PM HEAD OF VISUAL MERCHANDISING Temperature 37.3 C (99.2 F) 04/20/2022 10:40 AM HEAD OF VISUAL MERCHANDISING Respiratory Rate 18 04/20/2022 12:3 3 PM HEAD OF VISUAL MERCHANDISING Oxygen Saturation 99% 04/20/2022 12: 33 PM HEAD OF VISUAL MERCHANDISING Inhaled Oxygen Concentration - - Weight 88.9 kg (195 lb 15.8 oz) 04/20/2022 8:35 AM HEAD OF VISUAL MERCHANDISING Height 157.5 cm (5' 2) 04/20/2022 8:35 AM HEAD OF VISUAL MERCHANDISING Body Mass Index 35.85 04/20/2022 8:35 AM HEAD OF VISUAL MERCHANDISING Plan of Treatment Not on file Insurance [facility] Care Teams Conference Planner Relationship Specialty Start Date End Date Magy Medina NP PCP - General 05/10/19
--- OUTSIDE RECORDS SUMMARY | 2024-10-13 16:15 | XMS_ITS | Clinical Summary ---
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 Gender Identity Not on file Sexual Orientation Not on file Obstetrics History Last Filed Vital Signs Vital Sign Reading Time Taken Comments Blood Pressure 119/85 04/20/2022 12:33 PM AUTO ELECTRICAL TECHNICIAN Pulse 88 04/20/2022 12:33 PM AUTO ELECTRICAL TECHNICIAN Temperature 37.3 C (99.2 F) 04/20/2022 10:40 AM AUTO ELECTRICAL TECHNICIAN Respiratory Rate 18 04/20/2022 12:3 3 PM AUTO ELECTRICAL TECHNICIAN Oxygen Saturation 99% 04/20/2022 12: 33 PM AUTO ELECTRICAL TECHNICIAN Inhaled Oxygen Concentration - - Weight 88.9 kg (195 lb 15.8 oz) 04/20/2022 8:35 AM AUTO ELECTRICAL TECHNICIAN Height 157.5 cm (5' 2) 04/20/2022 8:35 AM AUTO ELECTRICAL TECHNICIAN Body Mass Index 35.85 04/20/2022 8:35 AM AUTO ELECTRICAL TECHNICIAN Plan of Treatment Health Maintenance Due Date [...] Insurance [facility] Care Teams Pst Specialist Relationship Specialty Start Date End Date Magy Medina NP [facility] - General 05/10/19
--- OUTSIDE RECORDS SUMMARY | 2024-10-13 16:15 | XMS_ITS | Clinical Summary ---
Author Organization [facility] Address [address] [place] [address] Care Team Providers Care Retail Customer Service Representative Name Role Phone Kristopher Askew MD Primary Care Provider [phone] Allergies Active Allergy Reactions Criticality Noted Date [...] CDT - 09/30/2024 11:01 AM CDT Emergency [facility] [place] [address] Federica Faith NP Headache; Vomiting Discharge Disposition: Home or Self Care (Routine Discharge) 09/30/2024 Travel 08/26/2024 2:25 PM CDT - 08/26/2024 8:17 PM CDT Emergency [facility] [place] [address] Vicente Ac NP Headache; Abdominal Pain Discharge Disposition: Home or Self Care (Routine Discharge) 08/26/2024 Travel 08/03/2024 12:30 PM DUBBING MACHINE OPERATOR - 08/03/2024 4:50 PM DUBBING MACHINE OPERATOR Emergency [facility] [place] [address] Kimberly Trejo PA Abdominal Pain Discharge Disposition: [...] Sex Assigned at Female 07/15/2024 9:45 AM DUBBING MACHINE OPERATOR Legal Sex Female 7:19 PM CDT Gender [...] OB COMP TV STAT 08/03/2024 3:43 PM DUBBING MACHINE OPERATOR CT ABD+PEL W CON STAT 08/03/2024 2:50 PM DUBBING MACHINE OPERATOR HCG QUANT (SERUM)-CHORIONIC GONADOTROPIN STAT 08/03/2024 12:45 PM DUBBING MACHINE OPERATOR URINALYSIS, AUTO, COMPLETE STAT 08/03/2024 12:45 PM DUBBING MACHINE OPERATOR COMPREHENSIVE METABOLIC PANEL STAT 08/03/2024 12:45 PM DUBBING MACHINE OPERATOR CBC W/DIFF AUTOMATED STAT 08/03/2024 12:45 PM DUBBING MACHINE OPERATOR from Last 3 Months Results * LACTIC ACID W REFLEX (SEPSIS) (09/30/2024 8:16 AM CDT) LACTIC ACID VENOUS 1.1 0.4 - 2.0 MMOL/L 09/30/2024 9:10 AM CDT [facility] 09/30/2024 8:16 AM CDT us Federica Faith NP LABORATORY Final Result [facility] [address] [place] [address], [place] [phone] * (ABNORMAL) COMPREHENSIVE METABOLIC PANEL (09/30/2024 8:15 AM CDT) Only the most recent of3 resultswithin the time period is included. GLUCOSE 115(H) 70 - 99 MG/DL 09/30/2024 9:12 AM CDT [facility] BUN 11 7 - 18 MG/DL 09/30/2024 9:12 AM CDT [facility] CREATININE S/P/B 0.74 0.55 - 1.02 MG/DL 09/30/2024 9:12 AM CDT [facility] SODIUM S/P/B 140 136 - 145 MMOL/L 09/30/2024 9:12 AM T [facility] POTASSIUM S/P/B 3.6 3.5 - 5.1 MMOL/L 09/30/2024 9:12 AM CDT [facility] CHLORIDE S/P/B 109 97 - 115 MMOL/L 09/30/2024 9:12 AM T [facility] CO2 26.2 21 - 32 MMOL/L 09/30/2024 9:12 AM T [facility] CALCIUM S/P/B 8.9 8.5 - 10.1 MG/DL 09/30/2024 9:12 AM T [facility] BILIRUBIN TOTAL S/P/B 0.6 0.2 - 1.2 MG/DL 09/30/2024 9:12 AM T [facility] Comment: THIS ASSAY IS NOT RECOMMENDED FOR PATIENTS UNDERGOING TREATMENT WITH ELTROMBOPAG DUE TO THE POTENTIAL FOR FALSELY ELEVATED RESULTS. TOTAL PROTEIN S/P/B 8.0 6.4 - 8.2 G/DL 09/30/2024 9:12 AM CDT [facility] ALBUMIN S/P/B 3.9 3.4 - 5.0 G/DL 09/30/2024 9:12 AM T [facility] AST 13(L) 15 - 37 U/L 09/30/2024 9:12 AM CDT [facility] ALT 18 14 - 55 U/L 09/30/2024 9:12 AM T [facility] ALKALINE PHOSPHATASE S/P/B 54 50 - 136 U/L 09/30/2024 9:12 AM CDT [facility] ANION GAP 4.8 2 - 10 MMOL/L 09/30/2024 9:12 AM CDT [facility] BUN CREATININE RATIO 14.8 6 - 26 09/30/2024 9:12 AM CDT [facility] A/G RATIO 1.0 1.0 - 2.0 RATIO 09/30/2024 9:12 AM CDT [facility] GFR ESTIMATE >90 >90 ML/MIN/1.7 3 M2 09/30/2024 9:12 AM CDT [facility] Comment: NOTE: eGFR is not [...] us Federica Faith NP LABORATORY Final Result [facility] [address] [place] [address], [place] [phone] * CBC W/DIFF AUTOMATED (09/30/2024 8:15 AM CDT) Only the most recent of3 resultswithin the time period is included. WBC 4.58 4.5 - 11.0 x10'3/uL 09/30/2024 10:16 AM CDT [facility] RBC 4.67 4.20 - 5.40 x10'6/uL 09/30/2024 10:16 AM CDT [facility] HGB 13.6 12.0 - 16.0 G/DL 09/30/2024 10:16 AM CDT [facility] HCT 41.6 38.0 - 48.0 % 09/30/2024 10:16 AM CDT [facility] MCV 89.1 81.0 - 99.0 FL 09/30/2024 10:16 AM CDT [facility] MCH 29.1 27.0 - 31.0 PG 09/30/2024 10:16 AM CDT [facility] MCHC 32.7 32.0 - 36.0 G/DL 09/30/2024 10:16 AM CDT [facility] RDW 12.5 11.5 - 14.5 % 09/30/2024 10:16 AM CDT [facility] PLT 338 130 - 400 x10'3/uL 09/30/2024 10:16 AM CDT [facility] MPV 9.9 9.3 - 12.2 FL 09/30/2024 10:16 AM CDT [facility] DIFFERENTIAL TYPE AUTOMATED DIFFERENTIAL 09/30/2024 10:16 AM CDT [facility] NEUTROPHILS % 55.0 % 09/30/2024 10:16 AM CDT [facility] LYMPHOCYTES % 32.5 % 09/30/2024 10:16 AM CDT [facility] MONOCYTES % 8.1 % 09/30/2024 10:16 AM CDT [facility] EOSINOPHILS 3.1 % 09/30/2024 10:16 AM CDT [facility] BASOPHILS 1.3 % 09/30/2024 10:16 AM CDT [facility] IMMATURE GRANS % 0.0 % 10/01/19 10:16 AM CDT [facility] ABS. NEUTROPHILS 2.52 1.80 - 7.70 x10'3/uL 09/30/2024 10:16 AM CDT [facility] ABS. LYMPHOCYTES 1.49 1.00 - 4.80 x10'3/uL 09/30/2024 10:16 AM CDT [facility] ABS. MONOCYTES 0.37 0.24 - 0.86 x10'3/uL 09/30/2024 10:16 AM CDT [facility] ABS. EOSINOPHILS 0.14 0.04 - 0.36 x10'3/uL 09/30/2024 10:16 AM CDT [facility] ABS. BASOPHILS 0.06 0.01 - 0.08 x10'3/uL 09/30/2024 10:16 AM CDT [facility] ABS. IMMATURE GRANULOCYTES 0.00 0.00 - 0.49 x10'3/uL 09/30/2024 10:16 AM CDT [facility] 09/30/2024 8:15 AM CDT us Federica Faith WINDOWS SECURITY ENGINEER LABORATORY Final Result [facility] [address] [place] [address], [place] [phone] * LIPASE (08/26/2024 6:22 PM CDT) LIPASE 70 13 - 75 UNITS/L 08/26/2024 7:01 PM CDT [facility] 08/26/2024 6:22 PM CDT Vicente Ac WINDOWS SECURITY ENGINEER LABORATORY Final Result [facility] [address] [place] [address], [place] [phone] * CT ABD+PEL W IV CON ONLY [...] 5:40 PM Narrative 08/26/2024 5:46 PM CDT [address] [address] EXAMINATION: CT ABD+PEL W CON CLINICAL HISTORY: [...] Procedure Note Lionel Gutiérrez MD - 08/26/2024 [facility] [address] [place], [place] [address] EXAMINATION: CT ABD+PEL W CON CLINICAL HISTORY: [...] URINE CLEAN CATCH 08/26/2024 3:26 PM CDT [facility] COLOR (U) LIGHT ORANGE 08/26/2024 3:58 PM CDT [facility] TRANSPARENCY TURBID 08/26/2024 3:58 PM CDT [facility] SPECIFIC GRAVITY (U) 1.031(H) 1.001 - 1.030 08/26/2024 3:58 PM CDT [facility] U PH 6.5 5.0 - 9.0 08/26/2024 3:58 PM CDT [facility] LEUKOCYTES (U) 25(A) NEGATIVE 08/26/2024 3:58 PM CDT [facility] NITRITES NEGATIVE NEGATIVE 08/26/2024 3:58 PM CDT [facility] PROTEIN RANDOM (U) 50(H) <30 MG/DL 08/26/2024 3:58 PM CDT [facility] GLUCOSE (U) NORMAL NORMAL MG/DL 08/26/2024 3:58 PM CDT [facility] KETONES MG/DL (U) TRACE(A) NEGATIVE MG/DL 08/26/2024 3:58 PM CDT [facility] UROBILINOGEN NORMAL NORMAL MG/DL 08/26/2024 3:58 PM CDT [facility] BILIRUBIN (U) NEGATIVE NEGATIVE MG/DL 08/26/2024 3:58 PM CDT [facility] BLOOD (U) 3+(A) NEGATIVE 08/26/2024 3:58 PM CDT [facility] MUCUS FEW /LPF 08/26/2024 3:58 PM CDT [facility] WBC/HPF 8(H) <6 /HPF 08/26/2024 3:58 PM CDT [facility] RBC/HPF >100(H) <6 /HPF 08/26/2024 3:58 PM CDT [facility] SQUAMOUS EPITHELIALS RARE /HPF 08/26/2024 3:58 PM CDT [facility] URINE SPECIMEN OBTAINED BY CLEAN CATCH PROCEDURE / Unknown 08/26/2024 3:12 PM CDT us Vicente Ac NP URINE ORDERABLES Final Result Performing Organization Address City/[facility]/ZIP Co de Phone Number [facility] [address] [place] [address], [place] [phone] * (ABNORMAL) CULTURE URINE (08/26/2024 3:12 PM CDT) SPEC DESCRIPTION URINE CLEAN CATCH 08/26/2024 4:08 PM CDT [facility] SPECIAL REQUESTS NO SPECIAL REQUEST 08/26/2024 4:08 PM CDT [facility] CULTURE RESULT 10,000-49,000 COL/ML DIPHTHEROIDS SUSCEPTIBILTY NOT ROUTINELY PERFORMED. SAVING ISOLATE FOR 5 DAYS. CONTACT MICROBIOLOGY DEPARTMENT IF FURTHER WORKUP IS INDICATED. (A) 08/28/2024 12:37 PM CDT [facility] URINE SPECIMEN OBTAINED BY CLEAN CATCH PROCEDURE / Unknown 08/26/2024 3:12 PM CDT 08/26/2024 4:40 PM CDT us Vicente Ac NP MICROBIOLOGY - GENERAL ORDERAB LES Final Result [facility] [address] [place] [address], [place] [phone] * POCT urine (08/26/2024 3:11 PM CDT) URINE HCG TEST NEGATIVE Internal Control: VALID us Vicente Ac NP POINT OF CARE TEST ORDERABLES Final Result * US PELVIC TV NON OB (08/03/2024 3:43 PM DUBBING MACHINE OPERATOR) Anatomical Region Laterality Modality Pelvis Ultrasound 08/03/2024 3:43 PM DUBBING MACHINE OPERATOR Impressions 08/03/2024 3:47 PM DUBBING MACHINE OPERATOR =====IMPRESSION:===== 1. No acute findings within the pelvis. Normal sonographic appearance of the endometrium. 2. Fibroid uterus. Ordered By: KIMBERLY TREJO Interpreted By: Elder King MD, 08/03/2024 3:43 PM Narrative 08/03/2024 3:47 PM DUBBING MACHINE OPERATOR [address] [address] EXAMINATION: Ultrasound pelvis non-OB EXAM DATE/TIME: 08/03/2024 [...] Procedure Note Elder King MD - 08/03/2024 [facility] [address] [place], [place] [address] EXAMINATION: Ultrasound pelvis non-OB EXAM DATE/TIME: 08/03/2024 [...] * URINALYSIS, AUTO, COMPLETE (08/03/2024 12:45 PM DUBBING MACHINE OPERATOR) SPECIMEN TYPE URINE CLEAN CATCH 08/03/2024 12:44 PM DUBBING MACHINE OPERATOR [facility] COLOR (U) LIGHT YELLOW 08/03/2024 3:58 PM DUBBING MACHINE OPERATOR [facility] TRANSPARENCY CLEAR 08/03/2024 3:58 PM [facility] SPECIFIC GRAVITY (U) 1.020 1.001 - 1.030 08/03/2024 3:58 PM DUBBING MACHINE OPERATOR [facility] U PH 7.5 5.0 - 9.0 08/03/2024 3:58 PM [facility] LEUKOCYTES (U) NEGATIVE NEGATIVE 08/03/2024 3:58 PM [facility] NITRITES NEGATIVE NEGATIVE 08/03/2024 3:58 PM [facility] PROTEIN RANDOM (U) NEGATIVE <30 MG/DL 08/03/2024 3:58 PM [facility] GLUCOSE (U) NORMAL NORMAL MG/DL 08/03/2024 3:58 PM [facility] KETONES MG/DL (U) NEGATIVE NEGATIVE MG/DL 08/03/2024 3:58 PM [facility] UROBILINOGEN NORMAL NORMAL MG/DL 08/03/2024 3:58 PM [facility] BILIRUBIN (U) NEGATIVE NEGATIVE MG/DL 08/03/2024 3:58 PM [facility] BLOOD (U) NEGATIVE NEGATIVE 08/03/2024 3:58 PM [facility] MUCUS RARE /LPF 08/03/2024 3:58 PM [facility] WBC/HPF <1 <6 /HPF 08/03/2024 3:58 PM DUBBING MACHINE OPERATOR [facility] RBC/HPF 3 <6 /HPF 08/03/2024 3:58 PM DUBBING MACHINE OPERATOR [facility] SQUAMOUS EPITHELIALS RARE /HPF 08/03/2024 3:58 PM DUBBING MACHINE OPERATOR [facility] URINE SPECIMEN OBTAINED BY CLEAN CATCH PROCEDURE / Unknown 08/03/2024 12:45 PM DUBBING MACHINE OPERATOR Robb ADORNO URINE ORDERABLES Final Res ult [facility] [address] [place] [address], [place] [phone] * HCG QUANTITATIVE SERUM (08/03/2024 12:45 PM DUBBING MACHINE OPERATOR) HCG QUANTITATIVE 105 MIU/ML 08/03/19 1:18 PM DUBBING MACHINE OPERATOR [facility] Comment: WEEKS OF REFERENCE RANGES [...] 10,000 - 100,000 08/03/2024 12:4 5 PM DUBBING MACHINE OPERATOR Robb ADORNO LABORATORY Final Resu lt [facility] [address] [place] [address], [place] [phone] from Last 3 Months Insurance [employer] Care Teams Retail Customer Service Representative Relationship Specialty Start Date End Date Kristopher Askew MD [address] [place], [place] [id number] PCP - General FAMILY PRACTICE 01/11/24
[2024-10-13] MEDS: SIMETHICONE 80 MG TAB.CHEW PO (16:45)
[2024-10-14] VITALS (10 sets, daily range): BP systolic 96–115; BP diastolic 51–81; PULSE 65–80; RESP 14–18; TEMP 36.6–37.2; O2SAT 96–100
--- NOTE | ~2024-10-14 | CT_ITS ---
EXAMINATION: CT abdomen pelvis wo con DATE: 10/14/2024 08:03 INDICATION: Increasing abdominal pain after surgery TECHNIQUE: Computed tomography (CT) of the abdomen and pelvis was performed without intravenous contr ast. The dose-length product was 820.55 mGy-cm. Automated exposure control and iterative reconstructi on technique were employed. COMPARISON: No prior studies for comparison. FINDINGS: Heart size normal. Bibasilar dependent atelectasis. No significant pleural or pericardial e ffusion. Heart size normal. Moderate free intraperitoneal air. There is gas in the anterior abdominal wall subcutaneous tissues as well as the abdominal wall musculature, consistent with recent surgery. Small amount of free fluid in the pelvis. Study limited for evaluation of abscess due to lack of con trast. Hammer catheter present in the bladder. Moderate gas throughout the colon. There is scoliosis. IMPRESSION: 1. Moderate free intraperitoneal air, subcutaneous gas and anterior abdominal wall intramuscular gas, consistent with recent surgery. 2: Small amount of free fluid in the pelvis. Evaluation for abscess limited due to lack of contrast. 3: Bibasilar dependent atelectasis. Reviewed, dictated and finalized at location A. IMPRESSION: 1. Moderate free intraperitoneal air, subcutaneous gas and anterior abdominal w all intramuscular gas, consistent with recent surgery. 2: Small amount of free fluid in the pelvis. Evaluation for abscess limited due to lack of contrast. 3: Bibasilar dependent atelectasis.
[2024-10-14] MEDS: HYDROmorphon 0.2MG/ML PCA(*CRX 6 MG/30 ML PCA.VIAL 1.5 MG IV CONT (00:49)
[2024-10-14] MEDS: DEXTROSE 5%/LACTATED RINGERS 1,000 ML 125 ML IV CONT (01:44)
[2024-10-14] MEDS: KETOROLAC 30 MG/ML VIAL (*BKC) IV PUSH (01:44)
[2024-10-14] MEDS: ACETAMINOPHEN 500 MG TABLET 1000 MG PO ×4 (01:45→22:10)
--- NOTE | 2024-10-14 07:19 | W.PM.PROC2 ---
Procedure Note - Detailed Date of Procedure 10/14/24 Pre-op Diagnosis pelvic pain, menorrhagia,fibroids Post-op Diagnosis Same Procedure Performed Laparoscopic robotic assisted total vaginal hysterectomy with bilateral salpingectomy Surgeon Mickey Jamil MD Anesthesia General Indications Chronic pelvic pain and fibroids, pt opted for definitive treatment with hysterectomy. Findings Mildly enlarged uterus with multiple subserosal fibroids. Description of Procedure After informed consent was obtained she was taken to the operating room and general endotracheal anesthesia was administered. She was placed in low lithotomy position. An exam under anesthesia was performed. Uterus mildly enlarged retroverted, no adnexal masses palpated. She was and prepped and draped in sterile fashion. Hammer catheter placed in bladder. Attention was turned to the vagina speculum was inserted. Single-tooth tenaculum placed on anterior lip of the cervix the uterus sounded to 9 cm. The cervix was dilated to a 8 Castellanos dilator. A size 8 uterine manipulator was inserted and secured. A size 3.0 colp cup was secured in the vagina. Then attention was turned to the abdomen. .5% marcaine injected subcutaneously. An incision was made horizontal 2 cm above the umbilicus. A verress needle was inserted. Confirmation into abdomen obtained with normal peritoneal pressures. A Pneumoperitoneum of 15 mm per mercury was obtained. No abdominal or pelvic adhesions noted. A small incision was made approximately 6 cm lateral to the port on the left side of the port. A size 8mm robotic port was inserted under laparoscopic visualization into the abdomen on the left side. The right side of the bladder was dissected from the lower uterine segment and upper cervix. The right ovarian ligament was ligated with the vessel sealer. The a posterior leaf of the broad ligament was further dissected. The uterine vessels on the right were skeletonized. The ascending uterine vessels on the right were cauterized. The uterine vessels were ligated. Attention was turned to the left round ligament which was ligated and the anterior leaf of the broad ligament was dissected anteriorly. The rest of the vesicouterine peritoneum was dissected off of the uterus. Once the bladder was dissected below the colp cup then the posterior leaf of the broad ligament was further dissected. The ovarian ligament was ligated. The ascending uterine vessels were ligated with the syncroseal. The uterine arteries were skeletonized. The uterine arteries were ligated. The cardinal ligaments were ligated. This was done on both sides. An incision was made anterior colpotomy incision was made and this was carried around until the cervix was removed from the vagina. The uterus and cervix were removed through the vagina. The vaginal cuff was closed in a running fashion with 0 V lock suture. Hemostasis was noted. The pelvis was irrigated. Hemostasis noted. Hemoderm was applied in the pelvis. The patient was taken out of Trendelenburg position. The pneumoperitoneum was released and the ports were removed. The fascial stitch at the supraumbilical incision was approximated with O vicryl. The skin incisions were closed with 4 O Vicryl and skin glue. The patient was extubated in operating room. The sponge count was correct x2. Patient tolerated procedure well and was taken to recovery in stable condition. An 8mm port inserted on the left and superior and medial to this a 10mm clinical laboratory assistant port was inserted under laparoscopic visualization. Attention was turned to surgery console and the right round ligament was ligated. The right side of the bladder was dissected from the lower uterine segment and upper cervix. The right fallopian tube and the right ovarian ligament were ligated with the vessel sealer. The a posterior leaf of the broad ligament was further dissected. The ascending uterine vessels on the right ligated. The right uterine vessels were ligated. Attention was turned to the left round ligament which was ligated and the anterior leaf of the broad ligament was dissected anteriorly. The rest of the vesicouterine peritoneum was dissected off of the uterus. Once the bladder was dissected below the colp cup then the posterior leaf of the broad ligament was further dissected. The left fallopian tube was ligated from the mesosalpinx and the left ovarian ligament was ligated. The ascending uterine vessels were ligated with the syncroseal. The uterine arteries were ligated. The cardinal ligaments were ligated. This was done on both sides. An incision was made anterior colpotomy incision was made and this was carried around until the cervix was removed from the vagina. The uterus and cervix were removed through the vagina. The vaginal cuff was closed in a running fashion with 0 V lock suture. Hemostasis was noted. The pelvis was irrigated. Hemostasis noted. Hemoderm was applied in the pelvis. The patient was taken out of Trendelenburg position. The pneumoperitoneum was released and the ports were removed. The skin incisions were closed with 4 O Vicryl and skin glue. The patient was extubated in operating room. The sponge count was correct x2. Patient tolerated procedure well and was taken to recovery in stable condition. Estimated Blood Loss 50 Drains No Packing No Pathology Yes (uterus and cervix and right and left fallopian tubes) Complications No immediate complications Condition Stable Disposition PACU [facility] Billing Surgery - Charge Forward: Surgery Billing
[2024-10-14] MEDS: SODIUM CHLORIDE 0.9% IV 500 ML IV CONT (07:38)
[2024-10-14] MEDS: IBUPROFEN 600 MG TABLET PO ×3 (07:40→22:10)
[2024-10-14] MEDS: SIMETHICONE 80 MG TAB.CHEW PO ×3 (07:40→17:51)
--- NOTE | 2024-10-14 07:50 | PC.NURSE ---
Patient to CT per bed.
--- NOTE | 2024-10-14 08:07 | PC.NURSE ---
Patient returned from CT scan per bed.
--- NOTE | 2024-10-14 09:07 | WPDANESPN ---
Anes - Prog Note Post-Op Date/Time: 10/14/24 09:07 Cardiovascular status: normal Respiratory status: normal Airway patency: baseline Mental status: baseline Post-Op hydration status: normal Vital Signs: Last Vital Signs Temp 36.6 C 10/14/24 03:50 Pulse 65 10/14/24 03:50 Resp 16 10/14/24 04:50 BP 106/66 10/14/24 03:50 Pulse Ox 98 10/14/24 04:50 O2 Del Method Nasal Cannula 10/13/24 16:40 O2 Flow Rate 2 10/13/24 16:40 Pain Score (VAS): 08/16 I/O: Intake & Output 10/13/24 10/14/24 10/14/24 23:59 07:59 15:59 Intake Total 1000 Output Total 200 150 Balance -200 850 Laboratory Tests 10/13/24 11:33 10/13/24 11:33 WBC 14.2 H RBC 4.25 Hgb 12.2 Hct 39.3 MCV 92.5 MCH 28.7 MCHC 31.0 L RDW 12.3 Plt Count 223 MPV 10.4 Post-procedural complaints: other (mild sore throat) Patient Feedback: Patient satisfied with anesthetic care.
[2024-10-14] MEDS: HYDROmorphone HCL (*CRX) 2 MG TABLET 4 MG PO ×3 (09:24→17:51)
[2024-10-14] MEDS: ONDANSETRON INJ 4 MG/2 ML VIAL IV PUSH (09:30)
[2024-10-14] MEDS: HYDROCORTISONE 1% 30 GM CREAM 1 APPLIC TOPICAL (09:30)
[2024-10-14] MEDS: FLUTICASONE PROP 44 MCG (*SP) 10.6 GM 2 PUFF INHALATION (21:40)
[2024-10-15] MEDS: HYDROmorphone HCL (*CRX) 2 MG TABLET 4 MG PO ×2 (00:15→07:20)
[2024-10-15 00:41] LABS: Add Urine Microscopic? YES; Appearance Urine Clear (Clear); Bacteria Urine 4+ /hpf; Bilirubin Urine Negative (Negative); Blood Urine 3+ (Negative); Color Urine Yellow (Yellow); Glucose Urine UA Negative (Negative); Ketones Urine Negative (Negative); Leukocyte Esterase Ur 1+ LEU/UL (Negative); Nitrate Urine Positive (Negative); Non Pathogenic Casts 0-2; Protein Urine Negative (Negative); RBC Urine 51-100 /hpf (0-2); Squamous Epithelial Cell Urine None Seen /hpf (Few); Urobilinogen Urine 0.2 mg/dL (<2.0)
[2024-10-15] MEDS: TAMSULOSIN HCL 0.4 MG CAPSULE PO (01:00)
[2024-10-15] MEDS: ACETAMINOPHEN 500 MG TABLET 1000 MG PO ×2 (04:40→10:09)
[2024-10-15] MEDS: IBUPROFEN 600 MG TABLET PO ×2 (04:40→10:09)
[2024-10-15] MEDS: SIMETHICONE 80 MG TAB.CHEW PO ×2 (07:20→10:09)
[2024-10-15 07:45] VITALS: BP 115/71; PULSE 71; RESP 18; TEMP 36.5; O2SAT 98
[2024-10-15] MEDS: FLUTICASONE PROP 44 MCG (*SP) 10.6 GM 2 PUFF INHALATION ×2 (09:13→09:26)
--- NOTE | 2024-10-15 11:30 | PC.NURSE ---
Indwelling catheter placed with leg bag, discussed how to attach to leg and empty the bag. Straight catheter and urine hat given to pt to take to office next week.
--- NOTE | 2024-11-05 11:23 | PM.DS ---
DS: Admitting Diagnosis Discharge Date 10/15/24 Admitting Diagnosis 1. Menorrhagia 2. Fibroid uterus 3. Chronic pelvic pain DS: Discharge Diagnosis Discharge Diagnosis (1) Menorrhagia: Code(s): N92.0 - Excessive and frequent menstruation with regular cycle Status: Acute (2) Fibroid uterus: Code(s): D25.9 - Leiomyoma of uterus, unspecified Status: Acute (3) Urine retention: Code(s): R33.9 - Retention of urine, unspecified Status: Acute (4) Hysterectomy planned: Status: Acute DS: Summary Hospital Course Reason for hospitalization: Planned hysterectomy Hospital Course: She was admitted for planned hysterectomy. She had an uncomplicated robotic hysterectomy. Post operatively she had urine retention. She also had to get pain medication adjusted. Pain improved with Dilaudid, NSAIDS and Tylenol. Urine analysis and culture performed due to urine retention. She was given option of self cath or indwelling catheter. She opted for indwelling catheter. She was discharged to home with indwelling catheter and antibiotics. Prior to discharge she was tolerating regular diet, ambulating without assistance, and positive flatus. Status at Discharge Functional status at discharge: independent ambulation Time Spent with Patient Time attestation: Total time spent providing and/or coordinating discharge services: Exam Const: General: no acute distress Eyes: General: appearance normal, both eyes and all related structures Resp: Effort & Inspection: normal respiratory effort Cardio: Rate: regular rate GI: Inspection: normal to inspection Other: incisions intact, appropriate incisional tenderness, positive bowel sounds Neuro: General: patient oriented x3 Extrem: General: normal to inspection and no calf tenderness Psych: Appearance: grossly normal DS: Data Data Completed and Pending Completed studies during hospitalization: Pending at discharge 10/13/24 09:30 Surgical [PTH] Routine Discharge Plan Discharge Attending physician on discharge: Mickey Jamil Consulting providers: Jon Mccartney; Pratik Pedroza Discharging Clinician: Mickey Jamil Anticipated Discharge Date/Time: 10/15/24 10:43 Patient Disposition: Home Activity: may shower, no straining, no driving, follow weight bearing status and pelvic rest Diet: regular Discharge Instructions: Call Dr. Jamil if you have any questions regarding your care. Take straight catheter to office appt. Patient Instructions: Hammer Catheter Placement and Care (DC), Laparoscopic Hysterectomy (DC) Patient Language: Tamazight Stand Alone Forms: General Discharge Information Follow-up/Referrals: Mickey Jamil MD [Physician] - 10/19/24 8:15 am Discharge Medications: New hydromorphone 2 mg Tablet 4 mg PO Q4H PRN (Reason: Pain Rated 7-10) Qty: 30 0RF tamsulosin 0.4 mg Capsule 0.4 mg PO BEDTIME Qty: 30 0RF nitrofurantoin monohyd/m-cryst [Macrobid] 100 mg capsule 100 mg PO Q12H 7 Days Qty: 14 0RF Rx Instructions: must administer with a meal/food Continued cetirizine 10 mg tablet 10 mg PO DAILY diclofenac sodium 50 mg tablet,delayed release (DR/EC) 50 mg PO DAILY PRN (Reason: pain) fluticasone furoate 50 mcg/actuation blister with device 1 inh inhalation Q24H epinephrine [EpiPen 2-Deyvi] 0.3 mg/0.3 mL auto-injector 0.3 mg IM Q4H PRN (Reason: anaphylaxis) Qty: 2 0RF albuterol sulfate 90 mcg/actuation HFA aerosol inhaler 2 puff inhalation Q6H PRN (Reason: bronchospasm) Qty: 8.5 5RF scopolamine base 1 mg over 3 days patch 3 day 1 patch transdermal ONCE Qty: 1 0RF Rx Instructions: apply behind ear the night before procedure cyclobenzaprine 10 mg tablet 10 mg PO TID PRN (Reason: prn) sumatriptan succinate 50 mg tablet 50 mg PO PRN Rx Instructions: take 1 tab at onset of headache; if no relief may repeat 1 tab after at least 2 hrs; max = 4 tabs/24 hr PO topiramate 50 mg tablet 50 mg PO BID PRN (Reason: PRN) cholecalciferol (vitamin D3) [D3 DOTS] 50 mcg (2,000 unit) tablet 50 mcg PO DAILY phentermine 37.5 mg capsule 37.5 mg PO DAILY PRN (Reason: prn) Qty: 30 0RF Rx Instructions: must administer 30 minutes before or 1-2 hours after breakfast multivitamin [Daily Multi-Vitamin] Tablet 1 tablet PO DAILY Adult 50 Plus Probiotic 4 billion cell capsule 4,000 mmu cells PO DAILY No Action azithromycin [Zithromax Z-Deyvi] 250 mg tablet See Rx Instructions PO .COMPLEX Qty: 6 0RF Rx Instructions: For 250 mg dose pack: take 500 mg today (day 1), then 250 mg for 4 days (days 2-5) PO magnesium citrate [Citroma] Solution 150 ml PO BID PRN (Reason: constipation) Qty: 296 0RF Date of admission: 10/14/24 16:39 Primary Care Provider: Kristopher Askew Admitting Provider: Mickey Jamil Attending physician on admission: Mickey Jamil Condition: Stable
== END 2024-10-15 13:00 | disposition home or self-care (01) ==
LOC: ANHSURGERY 16:50 → ANHOB2 16:50
PROVIDERS: Admitting Provider Obstetrics & Gynecology; PCP Family Medicine; Visit Provider Obstetrics & Gynecology
PROC: (CPT 58552; principal; 2024-10-13 07:30)
DX: D25.2 Subserosal leiomyoma of uterus (principal); N80.03 Adenomyosis of the uterus; N88.0 Leukoplakia of cervix uteri; N83.8 Other noninflammatory disorders of ovary, fallopian tube and broad ligament; N92.0 Excessive and frequent menstruation with regular cycle; R10.2 Pelvic and perineal pain; R33.9 Retention of urine, unspecified; J44.9 Chronic obstructive pulmonary disease, unspecified; I10 Essential (primary) hypertension; R73.03 Prediabetes; Z79.51 Long term (current) use of inhaled steroids; Z79.899 Other long term (current) drug therapy
CPT/HCPCS: 58552; S2900; 36415; 74176; 81001; 85027; 87086; 87186; 88307; 94640; 99199; A9270; G0378; G0379; J0690; J1100; J1171; J1885; J2250; J2405; J2704; J3010; J7030; J7040; J7120; J7121

== ENCOUNTER 2024-10-18 09:07 | Emergency (ER) | payer OTHER, SELFPAY ==
--- NOTE | ~2024-10-18 | CT_ITS ---
EXAMINATION: CT abdomen pelvis w con DATE: 10/18/2024 10:01 INDICATION: Postoperative abdominal pain TECHNIQUE: Computed tomography (CT) of the abdomen and pelvis was performed with 100 mL Omnipaque-350 intravenous contrast. Automated exposure control and iterative reconstruction technique were employe d. The dose-length product was 531.36 mGy-cm. COMPARISON: None FINDINGS: Mild basilar and dependent atelectasis in the bilateral lower lobes, more prominent on the right wher e there is mild elevation the right hemidiaphragm. Heart size is normal. No pericardial or pleural ef fusion. There is abdominal wall soft tissue gas along with free intraperitoneal gas consistent with r eported recent surgery. Liver, gallbladder, spleen, pancreas, bilateral adrenal glands and kidneys ar e normal. Hammer catheter in the bladder. Moderate amount of colonic stool. Bowels including the appen дмитрий are otherwise normal. The uterus is not identified and has likely been surgically resected. Left adnexa is unremarkable. Typical crenelated enhancing margins to a 1.3 cm partially collapsed corpus l uteum cyst at the right ovary. Minimal residual likely reactive free fluid in the deep pelvis. No int ra-abdominal abscess. No pathologically enlarged abdominal or pelvic lymphadenopathy. Mild S-shaped t horacolumbar scoliosis. IMPRESSION: 1. Slight decrease in both a minimal amount of free fluid in the deep pelvis and small to moderate am ount of free intraperineal gas consistent with reported recent hysterectomy. No abscess. 2. Moderate amount of scattered colonic stool which could be due to postoperative ileus and constipat ion. Reviewed, dictated and finalized at location A. IMPRESSION: 1. Slight decrease in both a minimal amount of free fluid in the deep pelvis an d small to moderate amount of free intraperineal gas consistent with reported r ecent hysterectomy. No abscess. 2. Moderate amount of scattered colonic stool which could be due to postoperati ve ileus and constipation.
[2024-10-18 09:07] VITALS: BP 133/94; PULSE 84; RESP 24; TEMP 36.7; O2SAT 100
--- OUTSIDE RECORDS SUMMARY | 2024-10-18 09:22 | XMS_ITS | Clinical Summary ---
Author Organization [facility] Address [address] [place] [address] Care Team Providers Care Assistant Baseball Coach Name Role Phone Kristopher Askew MD Primary Care Provider [phone] Source Comments [facility],non-owned Affiliates and Associated Physician Practices is amultiple site organization consisting of ambulatory clinics and hospital sitesin [place], [place], [place] and [place]. This disclosure is being madepursuant to the Care Everywhere program and may not contain all information available regarding this patient. 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
--- OUTSIDE RECORDS SUMMARY | 2024-10-18 09:22 | XMS_ITS | Clinical Summary ---
Author Organization [facility] Address [address] [place] [address] Care Team Providers Care Warehouse Packer Name Role Phone Kristopher Askew MD Primary Care Provider [phone] Allergies Active Allergy Reactions Criticality Noted Date [...] CDT - 09/30/2024 11:01 AM CDT Emergency [facility] [place] [address] Federica Faith NP Headache; Vomiting Discharge Disposition: Home or Self Care (Routine Discharge) 09/30/2024 Travel 08/26/2024 2:25 PM CDT - 08/26/2024 8:17 PM CDT Emergency [facility] [place] [address] Vicente Ac NP Headache; Abdominal Pain Discharge Disposition: Home or Self Care (Routine Discharge) 08/26/2024 Travel 08/03/2024 12:30 PM IMPLEMENTATION ARCHITECT - 08/03/2024 4:50 PM IMPLEMENTATION ARCHITECT Emergency [facility] [place] [address] Kimberly Trejo PA Abdominal Pain Discharge Disposition: [...] Sex Assigned at Female 07/15/2024 9:45 AM IMPLEMENTATION ARCHITECT Legal Sex Female 7:19 PM CDT Gender [...] OB COMP TV STAT 08/03/2024 3:[address] ABD+PEL W CON STAT 08/03/2024 2:50 PM IMPLEMENTATION ARCHITECT HCG QUANT (SERUM)-CHORIONIC GONADOTROPIN STAT 08/03/2024 12:45 PM IMPLEMENTATION ARCHITECT URINALYSIS, AUTO, COMPLETE STAT 08/03/2024 12:45 PM IMPLEMENTATION ARCHITECT COMPREHENSIVE METABOLIC PANEL STAT 08/03/2024 12:45 PM IMPLEMENTATION ARCHITECT CBC W/DIFF AUTOMATED STAT 08/03/2024 12:45 PM IMPLEMENTATION ARCHITECT from Last 3 Months Results * LACTIC ACID W REFLEX (SEPSIS) (09/30/2024 8:16 AM CDT) LACTIC ACID VENOUS 1.1 0.4 - 2.0 MMOL/L 09/30/2024 9:10 AM CDT [facility] 09/30/2024 8:16 AM CDT us Federica Faith NP LABORATORY Final Result [facility] [address] [place] [address], [place] [phone] * (ABNORMAL) COMPREHENSIVE METABOLIC PANEL (09/30/2024 8:15 AM CDT) Only the most recent of3 resultswithin the time period is included. GLUCOSE 115(H) 70 - 99 MG/DL 09/30/2024 9:12 AM CDT [facility] BUN 11 7 - 18 MG/DL 09/30/2024 9:12 AM CDT [facility] CREATININE S/P/B 0.74 0.55 - 1.02 MG/DL 09/30/2024 9:12 AM CDT [facility] SODIUM S/P/B 140 136 - 145 MMOL/L 09/30/2024 9:12 AM T [facility] POTASSIUM S/P/B 3.6 3.5 - 5.1 MMOL/L 09/30/2024 9:12 AM CDT [facility] CHLORIDE S/P/B 109 97 - 115 MMOL/L 09/30/2024 9:12 AM T [facility] CO2 26.2 21 - 32 MMOL/L 09/30/2024 9:12 AM T [facility] CALCIUM S/P/B 8.9 8.5 - 10.1 MG/DL 09/30/2024 9:12 AM T [facility] BILIRUBIN TOTAL S/P/B 0.6 0.2 - 1.2 MG/DL 09/30/2024 9:12 AM T [facility] Comment: THIS ASSAY IS NOT RECOMMENDED FOR PATIENTS UNDERGOING TREATMENT WITH ELTROMBOPAG DUE TO THE POTENTIAL FOR FALSELY ELEVATED RESULTS. TOTAL PROTEIN S/P/B 8.0 6.4 - 8.2 G/DL 09/30/2024 9:12 AM CDT [facility] ALBUMIN S/P/B 3.9 3.4 - 5.0 G/DL 09/30/2024 9:12 AM T [facility] AST 13(L) 15 - 37 U/L 09/30/2024 9:12 AM CDT [facility] ALT 18 14 - 55 U/L 09/30/2024 9:12 AM T [facility] ALKALINE PHOSPHATASE S/P/B 54 50 - 136 U/L 09/30/2024 9:12 AM CDT [facility] ANION GAP 4.8 2 - 10 MMOL/L 09/30/2024 9:12 AM CDT [facility] BUN CREATININE RATIO 14.8 6 - 26 09/30/2024 9:12 AM CDT [facility] A/G RATIO 1.0 1.0 - 2.0 RATIO 09/30/2024 9:12 AM CDT [facility] GFR ESTIMATE >90 >90 ML/MIN/1.7 3 M2 09/30/2024 9:12 AM CDT [facility] Comment: NOTE: eGFR is not [...] us Federica Faith NP LABORATORY Final Result [facility] [address] [place] [address], [place] [phone] * CBC W/DIFF AUTOMATED (09/30/2024 8:15 AM CDT) Only the most recent of3 resultswithin the time period is included. WBC 4.58 4.5 - 11.0 x10'3/uL 09/30/2024 10:16 AM CDT [facility] RBC 4.67 4.20 - 5.40 x10'6/uL 09/30/2024 10:16 AM CDT [facility] HGB 13.6 12.0 - 16.0 G/DL 09/30/2024 10:16 AM CDT [facility] HCT 41.6 38.0 - 48.0 % 09/30/2024 10:16 AM CDT [facility] MCV 89.1 81.0 - 99.0 FL 09/30/2024 10:16 AM CDT [facility] MCH 29.1 27.0 - 31.0 PG 09/30/2024 10:16 AM CDT [facility] MCHC 32.7 32.0 - 36.0 G/DL 09/30/2024 10:16 AM CDT [facility] RDW 12.5 11.5 - 14.5 % 09/30/2024 10:16 AM CDT [facility] PLT 338 130 - 400 x10'3/uL 09/30/2024 10:16 AM CDT [facility] MPV 9.9 9.3 - 12.2 FL 09/30/2024 10:16 AM CDT [facility] DIFFERENTIAL TYPE AUTOMATED DIFFERENTIAL 09/30/2024 10:16 AM CDT [facility] NEUTROPHILS % 55.0 % 09/30/2024 10:16 AM CDT [facility] LYMPHOCYTES % 32.5 % 09/30/2024 10:16 AM CDT [facility] MONOCYTES % 8.1 % 09/30/2024 10:16 AM CDT [facility] EOSINOPHILS 3.1 % 09/30/2024 10:16 AM CDT [facility] BASOPHILS 1.3 % 09/30/2024 10:16 AM CDT [facility] IMMATURE GRANS % 0.0 % 10/01/19 10:16 AM CDT [facility] ABS. NEUTROPHILS 2.52 1.80 - 7.70 x10'3/uL 09/30/2024 10:16 AM CDT [facility] ABS. LYMPHOCYTES 1.49 1.00 - 4.80 x10'3/uL 09/30/2024 10:16 AM CDT [facility] ABS. MONOCYTES 0.37 0.24 - 0.86 x10'3/uL 09/30/2024 10:16 AM CDT [facility] ABS. EOSINOPHILS 0.14 0.04 - 0.36 x10'3/uL 09/30/2024 10:16 AM CDT [facility] ABS. BASOPHILS 0.06 0.01 - 0.08 x10'3/uL 09/30/2024 10:16 AM CDT [facility] ABS. IMMATURE GRANULOCYTES 0.00 0.00 - 0.49 x10'3/uL 09/30/2024 10:16 AM CDT [facility] 09/30/2024 8:15 AM CDT us Fedeirca Faith [employer] LABORATORY Final Result [facility] [address] [place] [address], [place] [phone] * LIPASE (08/26/2024 6:22 PM CDT) LIPASE 70 13 - 75 UNITS/L 08/26/2024 7:01 PM CDT [facility] 08/26/2024 6:22 PM CDT Vicente Ac [facility] LABORATORY Final Result [facility] [address] [place] [address], [place] [phone] * CT ABD+PEL W IV CON ONLY [...] 5:40 PM Narrative 08/26/2024 5:46 PM CDT [address] [address] EXAMINATION: CT ABD+PEL W CON CLINICAL HISTORY: [...] Procedure Note Lionel Gutiérrez MD - 08/26/2024 [facility] [address] [place], [place] [address] EXAMINATION: CT ABD+PEL W CON CLINICAL HISTORY: [...] URINE CLEAN CATCH 08/26/2024 3:26 PM CDT [facility] COLOR (U) LIGHT ORANGE 08/26/2024 3:58 PM CDT [facility] TRANSPARENCY TURBID 08/26/2024 3:58 PM CDT [facility] SPECIFIC GRAVITY (U) 1.031(H) 1.001 - 1.030 08/26/2024 3:58 PM CDT [facility] U PH 6.5 5.0 - 9.0 08/26/2024 3:58 PM CDT [facility] LEUKOCYTES (U) 25(A) NEGATIVE 08/26/2024 3:58 PM CDT [facility] NITRITES NEGATIVE NEGATIVE 08/26/2024 3:58 PM CDT [facility] PROTEIN RANDOM (U) 50(H) <30 MG/DL 08/26/2024 3:58 PM CDT [facility] GLUCOSE (U) NORMAL NORMAL MG/DL 08/26/2024 3:58 PM CDT [facility] KETONES MG/DL (U) TRACE(A) NEGATIVE MG/DL 08/26/2024 3:58 PM CDT [facility] UROBILINOGEN NORMAL NORMAL MG/DL 08/26/2024 3:58 PM CDT [facility] BILIRUBIN (U) NEGATIVE NEGATIVE MG/DL 08/26/2024 3:58 PM CDT [facility] BLOOD (U) 3+(A) NEGATIVE 08/26/2024 3:58 PM CDT [facility] MUCUS FEW /LPF 08/26/2024 3:58 PM CDT [facility] WBC/HPF 8(H) <6 /HPF 08/26/2024 3:58 PM CDT [facility] RBC/HPF >100(H) <6 /HPF 08/26/2024 3:58 PM CDT [facility] SQUAMOUS EPITHELIALS RARE /HPF 08/26/2024 3:58 PM CDT [facility] URINE SPECIMEN OBTAINED BY CLEAN CATCH PROCEDURE / Unknown 08/26/2024 3:12 PM CDT us Vicente Ac NP URINE ORDERABLES Final Result Performing Organization Address City/[facility]/ZIP Co de Phone Number [facility] [address] [place] [address], [place] [phone] * (ABNORMAL) CULTURE URINE (08/26/2024 3:12 PM CDT) SPEC DESCRIPTION URINE CLEAN CATCH 08/26/2024 4:08 PM CDT [facility] SPECIAL REQUESTS NO SPECIAL REQUEST 08/26/2024 4:08 PM CDT [facility] CULTURE RESULT 10,000-49,000 COL/ML DIPHTHEROIDS SUSCEPTIBILTY NOT ROUTINELY PERFORMED. SAVING ISOLATE FOR 5 DAYS. CONTACT MICROBIOLOGY DEPARTMENT IF FURTHER WORKUP IS INDICATED. (A) 08/28/2024 12:37 PM CDT [facility] URINE SPECIMEN OBTAINED BY CLEAN CATCH PROCEDURE / Unknown 08/26/2024 3:12 PM CDT 08/26/2024 4:40 PM CDT us Vicente Ac NP MICROBIOLOGY - GENERAL ORDERAB LES Final Result [facility] [address] [place] [address], [place] [phone] * POCT urine (08/26/2024 3:11 PM CDT) URINE HCG TEST NEGATIVE Internal Control: VALID us Vicente Ac NP POINT OF CARE TEST ORDERABLES Final Result * US PELVIC TV NON OB (08/03/2024 3:43 PM IMPLEMENTATION ARCHITECT) Anatomical Region Laterality Modality Pelvis Ultrasound 08/03/2024 3:43 PM IMPLEMENTATION ARCHITECT Impressions 08/03/2024 3:47 PM IMPLEMENTATION ARCHITECT =====IMPRESSION:===== 1. No acute findings within the pelvis. Normal sonographic appearance of the endometrium. 2. Fibroid uterus. Ordered By: KIMBERLY TREJO Interpreted By: Elder King MD, 08/03/2024 3:43 PM Narrative 08/03/2024 3:47 PM IMPLEMENTATION ARCHITECT [address] [address] EXAMINATION: Ultrasound pelvis non-OB EXAM DATE/TIME: 08/03/2024 [...] Procedure Note Elder King MD - 08/03/2024 [facility] [address] [place], [place] [address] EXAMINATION: Ultrasound pelvis non-OB EXAM DATE/TIME: 08/03/2024 [...] * URINALYSIS, AUTO, COMPLETE (08/03/2024 12:45 PM IMPLEMENTATION ARCHITECT) SPECIMEN TYPE URINE CLEAN CATCH 08/03/2024 12:44 PM IMPLEMENTATION ARCHITECT [facility] COLOR (U) LIGHT YELLOW 08/03/2024 3:58 PM IMPLEMENTATION ARCHITECT [facility] TRANSPARENCY CLEAR 08/03/2024 3:58 PM [facility] SPECIFIC GRAVITY (U) 1.020 1.001 - 1.030 08/03/2024 3:58 PM IMPLEMENTATION ARCHITECT [facility] U PH 7.5 5.0 - 9.0 08/03/2024 3:58 PM [facility] LEUKOCYTES (U) NEGATIVE NEGATIVE 08/03/2024 3:58 PM [facility] NITRITES NEGATIVE NEGATIVE 08/03/2024 3:58 PM [facility] PROTEIN RANDOM (U) NEGATIVE <30 MG/DL 08/03/2024 3:58 PM [facility] GLUCOSE (U) NORMAL NORMAL MG/DL 08/03/2024 3:58 PM [facility] KETONES MG/DL (U) NEGATIVE NEGATIVE MG/DL 08/03/2024 3:58 PM [facility] UROBILINOGEN NORMAL NORMAL MG/DL 08/03/2024 3:58 PM [facility] BILIRUBIN (U) NEGATIVE NEGATIVE MG/DL 08/03/2024 3:58 PM [facility] BLOOD (U) NEGATIVE NEGATIVE 08/03/2024 3:58 PM [facility] MUCUS RARE /LPF 08/03/2024 3:58 PM [facility] WBC/HPF <1 <6 /HPF 08/03/2024 3:58 PM IMPLEMENTATION ARCHITECT [facility] RBC/HPF 3 <6 /HPF 08/03/2024 3:58 PM IMPLEMENTATION ARCHITECT [facility] SQUAMOUS EPITHELIALS RARE /HPF 08/03/2024 3:58 PM IMPLEMENTATION ARCHITECT [facility] URINE SPECIMEN OBTAINED BY CLEAN CATCH PROCEDURE / Unknown 08/03/2024 12:45 PM IMPLEMENTATION ARCHITECT Robb ADORNO URINE ORDERABLES Final Res ult [facility] [address] [place] [address], [place] [phone] * HCG QUANTITATIVE SERUM (08/03/2024 12:45 PM IMPLEMENTATION ARCHITECT) HCG QUANTITATIVE 105 MIU/ML 08/03/19 1:18 PM IMPLEMENTATION ARCHITECT [facility] Comment: WEEKS OF REFERENCE RANGES [...] 10,000 - 100,000 08/03/2024 12:4 5 PM IMPLEMENTATION ARCHITECT Robb ADORNO LABORATORY Final Resu lt [facility] [address] [place] [address], [place] [phone] from Last 3 Months Insurance [employer] Care Teams Warehouse Packer Relationship Specialty Start Date End Date Kristopher Askew MD [address] [place], [place] [id number] PCP - General FAMILY PRACTICE 01/11/24
--- OUTSIDE RECORDS SUMMARY | 2024-10-18 09:22 | XMS_ITS | Clinical Summary ---
Author Organization [facility] Address [address] [place] [id number] Care Team Providers Care Mixing Supervisor Name Role Phone Lissybabar Magy GARIBAY Primary Care Provider [phone] Allergies Active Allergy Reactions Criticality Noted Date [...] file Legal Sex Female 6:43 PM DIRECTOR FOOD SAFETY Gender Identity Not on file Sexual Orientation Not on file Obstetrics History Last Filed Vital Signs Vital Sign Reading Time Taken Comments Blood Pressure 119/85 04/20/2022 12:33 PM DIRECTOR FOOD SAFETY Pulse 88 04/20/2022 12:33 PM DIRECTOR FOOD SAFETY Temperature 37.3 C (99.2 F) 04/20/2022 10:40 AM DIRECTOR FOOD SAFETY Respiratory Rate 18 04/20/2022 12:3 3 PM DIRECTOR FOOD SAFETY Oxygen Saturation 99% 04/20/2022 12: 33 PM DIRECTOR FOOD SAFETY Inhaled Oxygen Concentration - - Weight 88.9 kg (195 lb 15.8 oz) 04/20/2022 8:35 AM DIRECTOR FOOD SAFETY Height 157.5 cm (5' 2 ) 04/20/2022 8:35 AM DIRECTOR FOOD SAFETY Body Mass Index 35.85 04/20/2022 8:35 AM DIRECTOR FOOD SAFETY Plan of Treatment Health Maintenance Due Date [...] age to complete this topic Insurance [employer] Care Teams Mixing Supervisor Relationship Specialty Start Date End Date Magy Medina NP [facility] - General 05/10/19
--- OUTSIDE RECORDS SUMMARY | 2024-10-18 09:22 | XMS_ITS | Encounter Summary ---
Author Organization [facility] Care Team Providers Care Manager Systems Name Role Phone Magy Medina [place] Primary Care Provider [phone] Encounter Details Date Type Department Care Team (Latest Contact Info) Description 03/07/2015 Orders Only [facility] CLINCONV Provider, MD Barry [address] [place] [address] Social History Tobacco Use Types Packs/Day Years Used Date Smoking Tobacco: Never Assessed Comments Unknown Sex and Gender Information Value Date Recorded Sex Assigned at Not on file Legal Sex Female 6:43 PM INFORMATION CODER Gender Identity Not on file Sexual Orientation [...] the result is from a facility outside [facility] . 04/20/2022 04/20/2022 04/30/2022 3:05 AM INFORMATION CODER Influenza, adult 04/20/2022 04/20/2022 04/27/2022 3:05 AM INFORMATION CODER documented as of this encounter Care Teams Manager Systems Relationship Specialty Start Date End Date Magy Medina NP PCP - General 05/10/19 documented as of this encounter
--- OUTSIDE RECORDS SUMMARY | 2024-10-18 09:22 | XMS_ITS | Referral Summary ---
Author Organization [facility] Address [address] [place] [phone] Care Team Providers Care Surgical Garment Assembly Supervisor Name Role Phone Lissybabar Magy [place] Primary Care Provider [phone] Allergies Active Allergy Reactions Criticality Noted Date [...] on file Legal Sex Female 6:43 PM CREW TEAM MEMBER Gender Identity Not on file Sexual Orientation Not on file Last Filed Vital Signs Vital Sign Reading Time Taken Comments Blood Pressure 119/85 04/20/2022 12:33 PM CREW TEAM MEMBER Pulse 88 04/20/2022 12:33 PM CREW TEAM MEMBER Temperature 37.3 C (99.2 F) 04/20/2022 10:40 AM CREW TEAM MEMBER Respiratory Rate 18 04/20/2022 12:3 3 PM CREW TEAM MEMBER Oxygen Saturation 99% 04/20/2022 12: 33 PM CREW TEAM MEMBER Inhaled Oxygen Concentration - - Weight 88.9 kg (195 lb 15.8 oz) 04/20/2022 8:35 AM CREW TEAM MEMBER Height 157.5 cm (5' 2 ) 04/20/2022 8:35 AM CREW TEAM MEMBER Body Mass Index 35.85 04/20/2022 8:35 AM CREW TEAM MEMBER Plan of Treatment Not on file Insurance [facility] Care Teams Surgical Garment Assembly Supervisor Relationship Specialty Start Date End Date Magy Medina NP PCP - General 05/10/19
[2024-10-18 09:30] LABS: Basophils Percent Auto 0.3 % (0.2-1.2); Eosinophils Absolute Auto 0.3 K/mm3 (0-0.3); Eosinophils Percent Auto 4.4 % (0-4.4); Hematocrit 38.5 % (37.0-47.0); Hemoglobin 12.2 g/dL (12.0-15.0); Immature Granulocyte Absolute 0.02 K/mm3 (0.00-0.031); Immature Granulocyte Percent A 0.3 % (0-0.5); Lymphocytes Absolute Auto 1.73 K/mm3 (0.9-3.2); Lymphocytes Percent Auto 26.3 % (18.3-44.2); Mean Corpuscular HGB Conc 31.7 g/dl (32-36); Mean Corpuscular Hemoglobin 28.4 pg (26-34); Mean Corpuscular Volume 89.5 fl (80-100); Mean Platelet Volume 9.3 fl (7.4-10.4); Monocytes Absolute Auto 0.4 K/mm3 (0.1-0.6); Monocytes Percent Auto 6.5 % (2.6-8.5); Neutrophils Absolute Auto 4.1 K/mm3 (1.3-6.7); Neutrophils Percent Auto 62.2 % (45.5-73.1); Platelet Count Result 320 k/mm3 (150-375); Red Cell Distribution Width 11.9 % (11.5-14.5); White Blood Count 6.6 K/mm3 (4.5-10.0)
--- NOTE | 2024-10-18 09:37 | ED_ITS ---
HPI - Recheck/Abnormal Lab/Rx General Chief Complaint: Recheck/Abnormal Lab/Rx Stated Complaint: post op complication History of Present Illness HPI narrative: Patient is a 33-year-old female who presents to the ER with complaints of postoperative abdominal pain. She reports she had a total hysterectomy on October 13, 2024. Patient reports she was discharged home 2 days later on October 15. On the evening of October 15 patient reports she ?turned over and felt like I ripped open my incisions. Patient reports she has had extreme pain since then. She reports she does not feel like her oral pain medications are relieve her pain. Patient reports she has had little to eat, as this also makes her pain worse. She reports she was sent home with a Hammer catheter in she has noticed the urine changing colors between yellow, green, purple, red. Patient reports she has also noticed some increased vaginal bleeding. She is unsure whether not she has had any fevers since being home. Patient denies any acute back pain, shortness of breath, chest pain. She endorses a history of ovarian cysts, but denies any other pertinent medical history relevant to this ER visit. Related Data Home Medications ?Medication ?Instructions ?Recorded ?Confirmed ?Last Taken ?Type cetirizine 10 mg tablet 10 mg PO DAILY 08/07/23 10/13/24 10/05/24 History diclofenac sodium 50 mg 50 mg PO DAILY PRN pain 08/07/23 09/30/24 08/08/24 History tablet,delayed release fluticasone furoate 50 1 inh inhalation Q24H 08/07/23 09/30/24 08/08/24 History mcg/actuation blister powder for inhalation lactobacillus combination no.9 4 4,000 mmu cells PO DAILY 07/23/24 10/13/24 10/05/24 History billion cell capsule (Adult 50 Plus Probiotic) multivitamin (Daily Multi-Vitamin 1 tablet PO DAILY 07/23/24 10/13/24 10/05/24 History tablet) cholecalciferol (vitamin D3) 50 50 mcg PO DAILY 09/17/24 10/13/24 10/05/24 History mcg (2,000 unit) tablet (D3 DOTS) cyclobenzaprine 10 mg tablet 10 mg PO TID PRN prn 09/30/24 09/30/24 Unknown History sumatriptan succinate 50 mg tablet 50 mg PO PRN 09/30/24 09/30/24 Unknown History topiramate 50 mg tablet 50 mg PO BID PRN PRN 09/30/24 09/30/24 Unknown History Allergies Allergy/AdvReac Type Severity Reaction Status Date / Time No Known Allergies Allergy Verified 10/18/24 10:00 Review of Systems 2 Review of Systems: All systems reviewed & are unremarkable except as noted in HPI and below PMFSH Past Medical History Medical History Chronic pain Elective COPD (chronic obstructive pulmonary disease) Hypertension Asthma Scoliosis Pre-diabetes Surgical History Surgical History Previous back surgery H/O: Family History Family History Mother Hypertension Asthma Heart disease Diabetes mellitus Acute myocardial infarction Father Acute myocardial infarction Heart disease Grandparent Asthma Diabetes mellitus Hypertension Heart disease Social History Social History Alcohol intake: never Substance use: never Substance use type: does not use Living arrangements: alone Spiritual care concerns: No Exam 2 Narrative: GENERAL: Well appearing, well-nourished, non-toxic, in no acute distress. HEAD: Normocephalic, atraumatic. NECK: Supple. No adenopathy, no masses. RESPIRATORY: Airway patent, respirations nonlabored. Clear to auscultation bilaterally, no rales, rhonchi, wheezing. CARDIOVASCULAR: Regular rate and rhythm without murmurs, rubs, or gallops. Peripheral pulses 2+ and equal bilaterally. ABDOMINAL: Soft, tender all four quadrants, mildly distended, no hepatosplenomegaly. Normoactive BS. MUSCULOSKELETAL: Moves all extremities. Strength/ROM intact without gross deformities. SKIN: Warm, dry, normal color. No rashes. NEURO: A&O X3. Speech clear. Cranial nerves II-XII intact. No ataxic movements. PSYCHIATRIC: Appropriate mood and affect. Normal interaction. : Pt's speculum vaginal exam was negative for any acute findings. No visible bleeding, no abnormal discharge. Course Vital Signs Vital signs: Vital Signs Temperature 36.7 C 10/18/24 09:07 Pulse Rate 84 10/18/24 09:07 Respiratory Rate 24 H 10/18/24 09:07 Blood Pressure 133/94 H 10/18/24 09:07 Pulse Oximetry 100 10/18/24 09:07 Oxygen Delivery Room Air 10/18/24 09:07 Temperature 36.7 C 10/18/24 09:07 Pulse Rate 77 10/18/24 10:07 Respiratory Rate 14 10/18/24 10:07 Blood Pressure 118/82 10/18/24 10:07 Pulse Oximetry 100 10/18/24 10:07 Oxygen Delivery Room Air 10/18/24 09:07 MDM - Recheck/Abnormal Lab/Rx MDM Narrative Medical decision making narrative: Patient is a 33-year-old female who presents to the ER with complaints of postoperative abdominal pain. She reports she had a total hysterectomy on October 13, 2024. Patient reports she was discharged home 2 days later on October 15. On the evening of October 15 patient reports she ?turned over and felt like I ripped open my incisions. Patient reports she has had extreme pain since then. She reports she does not feel like her oral pain medications are relieve her pain. Patient reports she has had little to eat, as this also makes her pain worse. She reports she was sent home with a Hammer catheter in she has noticed the urine changing colors between yellow, green, purple, red. Patient reports she has also noticed some increased vaginal bleeding. She is unsure whether not she has had any fevers since being home. Patient denies any acute back pain, shortness of breath, chest pain. She endorses a history of ovarian cysts, but denies any other pertinent medical history relevant to this ER visit. Labs Ordered: CBC, CMP, lactic acid, INR, PTT Imaging Ordered: CT abdomen pelvis Medications Ordered: 1 L normal saline IV bolus, Zofran 4 mg IV, morphine 4 mg IV Results: Pt's CT scan indicates 1. Slight decrease in both a minimal amount of free fluid in the deep pelvis and small to moderate amount of free intraperineal gas consistent with reported recent hysterectomy. No abscess. 2. Moderate amount of scattered colonic stool which could be due to postoperative ileus and constipation. Diagnosis: Postoperative Constipation Consults: Spoke with FLIP Valdes, who reports patient may be discharged home. She should continue to complete her antibiotic as prescribed. Patient can also take Mag citrate at home to help relieve her constipation. Patient Education/Shared MDM: Results of lab work and imaging shared with patient. She endorses improvement of symptoms following medication administration. Patient strongly advised to maintain hydration status upon discharge and follow-up with her OBGYN as soon as possible. She will be discharged home with a prescription for magnesium citrate. Strict return precautions provided. Patient verbalized understanding and is in agreement with plan. Vital signs stable at time of discharge. All questions answered. Differential Diagnosis Differential diagnosis: Likely encounter for wound recheck and other (urinary tract infection, postoperative constipation) Lab Data Attestation: I reviewed the patient's lab results. 10/18/24 09:21 10/18/24 09:21 Labs: Lab Results 10/18/24 10/18/24 10/18/24 Range/Units 09:21 09:46 11:21 WBC 6.6 (4.5-10.0) K/mm3 RBC 4.30 (4.2-5.4) M/mm3 Hgb 12.2 (12.0-15.0) g/dL Hct 38.5 (37.0-47.0) % MCV 89.5 (80-100) fl MCH 28.4 (26-34) pg MCHC 31.7 L (32-36) g/dl RDW 11.9 (11.5-14.5) % Plt Count 320 (150-375) k/mm3 MPV 9.3 (7.4-10.4) fl Immature Gran % (Auto) 0.3 (0-0.5) % Neut % (Auto) 62.2 (45.5-73.1) % Lymph % (Auto) 26.3 (18.3-44.2) % [place] % (Auto) 6.5 (2.6-8.5) % Eos % (Auto) 4.4 (0-4.4) % Baso % (Auto) 0.3 (0.2-1.2) % Lymph # (Auto) 1.73 (0.9-3.2) K/mm3 [place] # (Auto) 0.4 (0.1-0.6) K/mm3 Eos # (Auto) 0.3 (0-0.3) K/mm3 Baso # (Auto) 0.0 (0.0-0.1) K/mm3 Abs Immat Gran (auto) 0.02 (0.00-0.031) K/mm3 Absolute Neuts (auto) 4.1 (1.3-6.7) K/mm3 Absolute Nucleated RBC 0.000 (0.0-0.012) K/mm3 Nucleated RBC % 0.0 (0.0-0.2) % PT 12.5 (11.1-14.7) Seconds INR 0.9 APTT 22.6 (22.3-36.8) Seconds Sodium 139 (137-145) mmol/L Potassium 3.6 (3.4-5.0) mmol/L Chloride 104 (98-107) mmol/L Carbon Dioxide 25 (22-30) mmol/L Anion Gap 10 (4-12) mmol/L BUN 7 (7-17) mg/dL Creatinine 0.61 L (0.7-1.0) mg/dL Estim Creat Clear Calc 118 ml/min Estimated GFR > 60 (59 - ) Glucose 97 (65-110) mg/dL Hemoglobin A1c 5.3 (<5.7) % Lactic Acid 1.2 (0.7-2.0) mmol/L Calcium 9.2 (8.4-10.2) mg/dL Total Bilirubin 0.1 L (0.2-1.3) mg/dL AST 43 H (14-36) U/L ALT 30 (6-35) U/L Alkaline Phosphatase 71 (38-126) U/L Total Protein 7.0 (6.3-8.2) g/dL Albumin 3.9 (3.5-5.1) g/dL Urine Color Yellow (Yellow) Urine Appearance Clear (Clear) Urine pH 8.5 (5.0-9.0) Ur Specific [place] 1.026 (1.001-1.035) Urine Protein Negative (Negative) mg/dL Urine Glucose (UA) Negative (Negative) mg/dL Urine Ketones Negative (Negative) mg/dL Ur Blood (Man) Negative (Negative) Urine Nitrate Negative (Negative) Urine Bilirubin Negative (Negative) Urine Urobilinogen 0.2 (<2.0) mg/dL Leukocyte Esterase Rfl Negative (Negative) LIYA/UL Imaging Data Attestation: I personally reviewed and interpreted this imaging study as follows: Radiologist's impression: Impressions Abdomen/Pelvis CT 10/18/24 10:01 IMPRESSION: 1. Slight decrease in both a minimal amount of free fluid in the deep pelvis and small to moderate amount of free intraperineal gas consistent with reported recent hysterectomy. No abscess. 2. Moderate amount of scattered colonic stool which could be due to postoperative ileus and constipation. Discharge Plan Discharge Clinical Impression: Postoperative abdominal pain, Constipation due to opioid therapy, Constipation by delayed colonic transit Patient Disposition: Home Condition: Stable Instructions: Antibiotic Form, Abdominal Pain (ED) Additional Instructions: Please return to the ER with any worsening symptoms. Follow-up with your OBGYN as soon as possible. Take all medications as prescribed, including regularly scheduled medications. Complete your full dose of antibiotics. Patient Language: Kenyan Prescriptions: New magnesium citrate [Citroma] Solution 150 ml PO BID PRN (Reason: constipation) Qty: 296 0RF No Action cetirizine 10 mg tablet 10 mg PO DAILY diclofenac sodium 50 mg tablet,delayed release (DR/EC) 50 mg PO DAILY PRN (Reason: pain) fluticasone furoate 50 mcg/actuation blister with device 1 inh inhalation Q24H epinephrine [EpiPen 2-Deyvi] 0.3 mg/0.3 mL auto-injector 0.3 mg IM Q4H PRN (Reason: anaphylaxis) Qty: 2 0RF albuterol sulfate 90 mcg/actuation HFA aerosol inhaler 2 puff inhalation Q6H PRN (Reason: bronchospasm) Qty: 8.5 5RF scopolamine base 1 mg over 3 days patch 3 day 1 patch transdermal ONCE Qty: 1 0RF Rx Instructions: apply behind ear the night before procedure cyclobenzaprine 10 mg tablet 10 mg PO TID PRN (Reason: prn) sumatriptan succinate 50 mg tablet 50 mg PO PRN Rx Instructions: take 1 tab at onset of headache; if no relief may repeat 1 tab after at least 2 hrs; max = 4 tabs/24 hr PO topiramate 50 mg tablet 50 mg PO BID PRN (Reason: PRN) hydromorphone 2 mg Tablet 4 mg PO Q4H PRN (Reason: Pain Rated 7-10) Qty: 30 0RF tamsulosin 0.4 mg Capsule 0.4 mg PO BEDTIME Qty: 30 0RF nitrofurantoin monohyd/m-cryst [Macrobid] 100 mg capsule 100 mg PO Q12H 7 Days Qty: 14 0RF Rx Instructions: must administer with a meal/food cholecalciferol (vitamin D3) [D3 DOTS] 50 mcg (2,000 unit) tablet 50 mcg PO DAILY phentermine 37.5 mg capsule 37.5 mg PO DAILY PRN (Reason: prn) Qty: 30 0RF Rx Instructions: must administer 30 minutes before or 1-2 hours after breakfast multivitamin [Daily Multi-Vitamin] Tablet 1 tablet PO DAILY Adult 50 Plus Probiotic 4 billion cell capsule 4,000 mmu cells PO DAILY Follow-up/Referrals: Kristopher Askew MD [Primary Care Provider] - Time of Disposition: 12:17
[2024-10-18 09:39] LABS: Alanine Aminotransferase 30 U/L (6-35); Albumin Level 3.9 g/dL (3.5-5.1); Alkaline Phosphatase 71 U/L (38-126); Anion Gap 10 mmol/L (4-12); Aspartate Amino Transferase 43 U/L (14-36); Bilirubin,Total 0.1 mg/dL (0.2-1.3); Blood Urea Nitrogen 7 mg/dL (7-17); Calcium 9.2 mg/dL (8.4-10.2); Carbon Dioxide 25 mmol/L (22-30); Chloride 104 mmol/L (98-107); Estimated CRCL calculation 118 ml/min; Estimated Glomerular Filt Rate > 60; Glucose 97 mg/dL (65-110); Potassium 3.6 mmol/L (3.4-5.0); Sodium 139 mmol/L (137-145)
[2024-10-18 09:46] LABS: INR 0.9; Prothrombin Time 12.5 Seconds (11.1-14.7)
[2024-10-18 09:47] LABS: Partial Thromboplastin Time 22.6 Seconds (22.3-36.8)
[2024-10-18 09:50] LABS: Hemoglobin A1C 5.3 % (<5.7)
[2024-10-18] MEDS: SODIUM CHLORIDE 0.9% IV 1,000 ML 999 ML IV CONT (10:01)
[2024-10-18] MEDS: ONDANSETRON INJ 4 MG/2 ML VIAL IV PUSH (10:04)
[2024-10-18] MEDS: MORPHINE SULFATE (*CRX) 4 MG/ML INJ IV PUSH (10:06)
[2024-10-18 10:07] VITALS: BP 118/82; PULSE 77; RESP 14; O2SAT 100
[2024-10-18 10:09] LABS: Lactic Acid Reflex 1.2 mmol/L (0.7-2.0)
[2024-10-18 11:29] LABS: Add Urine Microscopic? NO; Appearance Urine Clear (Clear); Bilirubin Urine Negative (Negative); Blood Urine Negative (Negative); Color Urine Yellow (Yellow); Glucose Urine UA Negative (Negative); Ketones Urine Negative (Negative); Leukocyte Esterase Ur Negative LEU/UL (Negative); Nitrate Urine Negative (Negative); Protein Urine Negative (Negative); Specific Grav Ur 1.026 (1.001-1.035); Urobilinogen Urine 0.2 mg/dL (<2.0); pH Urine 8.5 (5.0-9.0)
[2024-10-18] MEDS: MAGNESIUM CITRATE 300 ML BTL 150 ML PO (12:44)
[2024-10-18 13:02] VITALS: BP 112/68; PULSE 72; RESP 16; O2SAT 99
== END 2024-10-18 13:02 | disposition home or self-care (01) ==
PROVIDERS: Emergency Provider Registered Nurse; PCP Family Medicine
DX: G89.18 Other acute postprocedural pain (principal); R10.9 Unspecified abdominal pain; K59.03 Drug induced constipation; K59.01 Slow transit constipation; T40.2X5A Adverse effect of other opioids, initial encounter; I10 Essential (primary) hypertension; J44.9 Chronic obstructive pulmonary disease, unspecified; R73.03 Prediabetes
CPT/HCPCS: 36415; 74177; 80053; 81003; 83036; 83605; 85025; 85610; 85730; 96361; 96374; 96375; 99284; A9270; J2270; J2405; J7030; Q9967

== ENCOUNTER 2025-01-11 15:36 | Outpatient (CLI) | payer OTHER, SELFPAY ==
--- OUTSIDE RECORDS SUMMARY | 2025-01-11 15:45 | XMS_ITS | Clinical Summary ---
Author Organization [facility] Address [address] [place] [address] Care Team Providers Care Supervisor Metal Fabricating Name Role Phone Kristopher Askew MD Primary Care Provider [phone] Source Comments [facility] [facility],non-owned Affiliates and Associated Physician Practices is amultiple site organization consisting of ambulatory clinics and hospital sitesin [place], [place], [place] and [place]. This disclosure is being madepursuant to the Care Everywhere program and may not contain all information available regarding this patient. 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 Gender Identity Not on file Sexual Orientation [...] Health Maintenance Due Date Last Done Comments HIV SCREENING 10/31/2006 HEPATITIS C SCREENING 10/27/2009 DTAP/TDAP/TD VACCINES (1 - Tdap) 10/31/2010 HEPATITIS B VACCINE (1 of 3 - 19+ 3-dose series) 10/31/2010 PAP SMEAR 10/31/2012 HPV VACCINE (1 - 3-dose SCDM series) 10/31/2018 COVID-19 VACCINE (2 - 2023-2 5 season) 2024 09/23/2022 DEPRESSION SCREENING 06/09/2024 INFLUENZA VACCINE (#1) 2025 2, 04/28/2007 ZOSTER VACCINE (1 of 2) [...] patient's age to complete this topic Insurance [facility] [employer]ICA[facility] - [place] SELF PAY NO INSURANCE Member Subscriber Plan / Payer (Ef fective for All Dates) Name:Jenny Wang Member ID:Not on file Relation to Subscriber:Not on file Name:JENNY WANG Subscriber ID:Not on file (Home) Address: [facility] [address] [place] [address] [place] [address] Payer ID:Not on file Group ID:Not on file Type:Self Pay Address: [place], [place] [address] THIRD CONSTITUTION PARTY LIABILITY [facility] Care Teams Supervisor Metal Fabricating Relationship Specialty Start Date End Date Kristopher Askew MD [address] [place] [id number] PCP - General Family Medicine 09/30/23
--- OUTSIDE RECORDS SUMMARY | 2025-01-11 15:45 | XMS_ITS | Referral Summary ---
Author Organization [facility] Address [address] [place] [address] Care Team Providers Care Honey Liquefier Name Role Phone Magy Medina NP Primary Care Provider [phone] Encounters Date Type Department Care Team Description 01/11/2025 7:45 AM CDT Therapy [facility] OP Physical Therapy [address] [place] [id number] Nayana Pink PTA Spondylosis without myelopathy or radiculopathy, cervical region (Primary Dx) 01/07/2025 Plan of Care Documentation [facility] OP Physical Therapy [address] [place] [id number] 01/07/2025 12:00 PM CDT Therapy [facility] OP Physical Therapy [address] [place] [id number] Humberto Jacob Jr. 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 Gender Identity Not on file Sexual Orientation Not on file Last Filed Vital Signs Vital Sign Reading Time Taken Comments Blood Pressure 119/85 04/20/2022 12:33 PM FIRE PROTECTION SPECIALIST Pulse 88 04/20/2022 12:33 PM FIRE PROTECTION SPECIALIST Temperature 37.3 C (99.2 F) 04/20/2022 10:40 AM FIRE PROTECTION SPECIALIST Respiratory Rate 18 04/20/2022 12:3 3 PM FIRE PROTECTION SPECIALIST Oxygen Saturation 99% 04/20/2022 12: 33 PM FIRE PROTECTION SPECIALIST Inhaled Oxygen Concentration - - Weight 88.9 kg (195 lb 15.8 oz) 04/20/2022 8:35 AM FIRE PROTECTION SPECIALIST Height 157.5 cm (5' 2) 04/20/2022 8:35 AM FIRE PROTECTION SPECIALIST Body Mass Index 35.85 04/20/2022 8:35 AM FIRE PROTECTION SPECIALIST Plan of Treatment Not on file Insurance IDPA [facility] Care Teams Honey Liquefier Relationship Specialty Start Date End Date Magy Medina NP [facility] - General 05/10/19
--- OUTSIDE RECORDS SUMMARY | 2025-01-11 15:45 | XMS_ITS | Encounter Summary ---
Author Organization [facility] Care Team Providers Care Production Line Operator Name Role Phone Magy Medina [place] Primary Care Provider [phone] Encounter Details Date Type Department Care Team (Latest Contact Info) Description 03/07/2015 Orders Only [facility] CLINCONV Provider, MD Barry [address] [place] [id number] Social History Tobacco Use Types Packs/Day Years Used Date Smoking Tobacco: Never Assessed Comments Unknown Sex and Gender Information Value Date Recorded Sex Assigned at Not on file Legal Sex Female 6:43 PM CLINICAL NURSING ASSISTANT Gender Identity Not on file Sexual Orientation [...] the result is from a facility outside [facility] . 04/20/2022 04/20/2022 04/30/2022 3:05 AM CLINICAL NURSING ASSISTANT Influenza, adult 04/20/2022 04/20/2022 04/27/2022 3:05 AM CLINICAL NURSING ASSISTANT documented as of this encounter Care Teams Production Line Operator Relationship Specialty Start Date End Date Magy Medina NP PCP - General 05/10/19 documented as of this encounter
--- OUTSIDE RECORDS SUMMARY | 2025-01-11 15:45 | XMS_ITS | Clinical Summary ---
[facility] Address [address] [place] [address] Care Team Providers Care Retention Representative Name Role Phone Magy Medina NP Primary Care Provider [phone] Allergies Active Allergy Reactions Criticality Noted Date [...] Active Active Problems No known active problems Encounters Date Type Department Care Team Description 01/11/2025 7:[address] [facility] OP Physical Therapy [address] [address] Nayana Pink, OPERATIONS VOCATIONAL INSTRUCTOR Spondylosis without myelopathy or radiculopathy, cervical region (Primary Dx) 01/07/2025 12:[address] [facility] OP Physical Therapy [address] [place] [address] Humberto Jacob Jr. Spondylosis without myelopathy or radiculopathy, cervical region 01/07/20[address] 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 Gender Identity Not on file Sexual Orientation Not on file Obstetrics History Last Filed Vital Signs Vital Sign Reading Time Taken Comments Blood Pressure 119/85 04/20/2022 12:33 PM MAKING MACHINE CATCHER Pulse 88 04/20/2022 12:33 PM MAKING MACHINE CATCHER Temperature 37.3 C (99.2 F) 04/20/2022 10:40 AM MAKING MACHINE CATCHER Respiratory Rate 18 04/20/2022 12:3 3 PM MAKING MACHINE CATCHER Oxygen Saturation 99% 04/20/2022 12: 33 PM MAKING MACHINE CATCHER Inhaled Oxygen Concentration - - Weight 88.9 kg (195 lb 15.8 oz) 04/20/2022 8:35 AM MAKING MACHINE CATCHER Height 157.5 cm (5' 2) 04/20/2022 8:35 AM MAKING MACHINE CATCHER Body Mass Index 35.85 04/20/2022 8:35 AM MAKING MACHINE CATCHER Plan of Treatment Health Maintenance Due Date Last Done Comments Cervical Cancer Screening 1991 Depression Screening 1991 Hepatitis C Screening 1991 Varicella Vaccines (1 of 2 - 13+ 2-dose series) 10/31/2004 Regular Well Visit/Exam 18-64 10/31/2009 Influenza Vaccine (#1) 2025 04/28/2007 DTaP/Tdap/Td Vaccine (9 - Td or Tdap) 01/10/2034 01/11/2024, 12/15/2014, 12/15/2014, Additional history exists Hepatitis B Screening Completed 03/16/2002 , 04/01/1998, 01/01/1997 HPV Vaccines Completed 10/28/2007, 06/09, 04/28/2007 Pneumococcal vaccine <65 Aged Out No longer eligible based on patient's age to complete this topic Insurance [facility] Care Teams Retention Representative Relationship Specialty Start Date End Date Magy Medina NP PCP - General 05/10/19
--- OUTSIDE RECORDS SUMMARY | 2025-01-11 15:45 | XMS_ITS | Clinical Summary ---
Author Organization [facility] Address Count includes the [facility] [place] [address] Care Team Providers Care Marketing Manager Health Communications Name Role Phone Kristopher Askew MD Primary Care Provider [phone] Allergies Active Allergy Reactions Criticality Noted Date [...] hours as needed. 10 tablet 5 Active Active Problems Problem Noted Date Diagnosed Date Lumbar radiculopathy 06/16/2017 Immunizations Immunization Administration Dates Next Due Tdap [...] Sex Assigned at Female 07/15/2024 9:45 AM WELL TESTING OPERATOR Legal Sex Female 7:19 PM CDT [...] patient's age to complete this topic Insurance [facility] Care Teams Marketing Manager Health Communications Relationship Specialty Start Date End Date Kristopher Askew MD [address] [place] [address] PCP - General FAMILY PRACTICE 01/11/24
--- OUTSIDE RECORDS SUMMARY | 2025-01-11 15:45 | XMS_ITS | Encounter Summary ---
Author Organization [facility] Address [address] [place] [address] Care Team Providers Care Crop Picker Name Role Phone Magy Medina NP Primary Care Provider [phone] Reason for Visit * Reason Comments PT Treatment * Physical Therapy (Routine) - Authorized Specialty Diagnoses / Procedures Referred By Contac t Referred To Contact Physical Therapy Diagnoses Spondylosis without myelopathy or radiculopathy, cervical region Maykel Nguyen MD [address] [place] [address] [place] [address] Phone: tel: fax: [facility] OP Physical Therapy [address] [place] [address] Phone: tel: fax: Referral ID Status Reason Start Date Expiration Date Visits Requested Visits Authorized [id number] Authorized Evaluate and Treat 11/17/2024 12/15/2025 16 12 Encounter Details Date Type Department Care Team (Late st Contact Info) Description 01/11/2025 7:45 AM CDT Therapy [facility] OP Physical Therapy [address] [place] [id number] Nayana Pink PTA Spondylosis without myelopathy or radiculopathy, cervical region (Primary Dx) Social History Tobacco Use Types Packs/Day Years Used Date Smoking Tobacco: Never Smokeless Tobacco: Never Comments No Sex and Gender Information Value Date Recorded Sex Assigned at Not on file Legal Sex Female 6:43 PM COMPANY DOCTOR Gender Identity Not on file Sexual Orientation Not on file documented as of this encounter Progress Notes * Nayana Pink PTA - 01/11/2025 7:45 AM CDT ICD-10-CM 1. Spondylosis without myelopathy or radiculopathy, cervical region M47.812 MAYKEL NGUYEN: PT Diagnosis/Impairment List: dysfunctional/mm weakness, posture poor Precautions: none Relevant Comorbidities: none Short-Term Goals:to be met by 02/04/2025 Patient will be instructed in HEP Patient will tolerate hep Patient will have improved reading tolerance Long-Term Goals: to be met by 03/04/2025 Patient will be independent in HEP (new and revised). Patient will have pain of 4 with personal care Patient will have an improved neck disability index Patient Goal: less pain PT Eval Date: 01/07/25 Orders : 03/04/25 01/07/25 Date Date Date Date Date 01/11/25 Visit Number 2 1 Pn 12/16 ADDITIONAL HEP SHEETS ISSUED Wall push ups, fwd, retro bilat shoulder flexion, shoulder shrugs, pect stretch X10 Chin tuck x10 Shoulder shrugs x10 [place]: light wgt, bilat ext, adduction NT pain Upper bike: 1-3 mins fwd/retro Fwd/bwd 1 min ea [place]: pull down and adduction RTB x15 Rows extension Nu steps, level 2, 8 mins LV 2 8 min's Wall slides x5 Progress Note/Re-Cert * Nayana Pink PTA - 01/11/2025 7:45 AM CDT Images from the original note were not included. Physical Therapy Visit/Daily Note 01/11/2025 Jenny Umanzor 1990 ICD-10-CM 1. Spondylosis without myelopathy or radiculopathy, cervical region M47.812 MAYKEL NGUYEN [employer] Utilized: NO Patient is identified by name and date of on this visit. Subjective: Pt reports feeling worse.following last visit. Pt states her pain is increased with her HEP and sheis having to take pain meds since starting therapy. Pt is reporting continued difficulty with any movement of cervical region and difficulty sleeping at night. Pt reports a need for taking muscle relax ors also since beginning therapy as well. Pain today is 7/10 Changes since last visit include: reports increased pain since starting therapy Objective: Objective Measurement/Observation: Pt ambulates with no device with no noted gait deviations and needing no assist from clinician. Pt tolerates all exercises with good range and technique noted; no adverse effects. Pt demonstratesincreased pain with today's ex program and was not able to complete full session today due to increased pain and discomfort. Specific exercises and treatment interventions are outlined on exercise worksheet document. Treatment Performed on This Visit: Manual Therapy (body part and techniques): none. Therapeutic Procedure/Exercise: refer to exercise flowsheet. Modalities: none. HEP given: continue with current HEP. Patient education: Continue with HEP. Assessment: The patient demonstrated a fair response to today's treatment as evidenced by these objective findings: completion of exercises with moderate increased c/o pain. The patient is making expected progress toward STG # 2 as evidenced by changes in progression towards ability to natali HEP x10 reps.The patient continues to demonstrate deficits with UE strength, endurance, and pain level. Plan: Patient would benefit from the following modification on next visit: Continue to progress as tolerated with current POC. Recommend continued therapy to focus on strengthening of cervical and scapularregion. If this is the last physical therapy visit, this note will serve as the discharge summary. Nayana Pink, [facility] ATTENTION PHYSICIAN If you are unable to electronically sign this document, please print this document and sign below to certify this plan of care/treatment plan. By signing this document, I certify that I have reviewedthis plan of care and support the treatment. Please fax back to . Thank you. Provider Signature: Date: documented in this encounter Plan of Treatment Not on file documented as of this encounter Visit Diagnoses Diagnosis Spondylosis without myelopathy or radiculopathy, cervical region- Primary documented in this encounter Care Teams Crop Picker Relationship Specialty Start Date End Date Magy Medina NP PCP - General 05/10/19 documented as of this encounter
[2025-01-11 16:20] LABS: Alanine Aminotransferase 19 U/L (6-35); Albumin Level 4.6 g/dL (3.5-5.1); Alkaline Phosphatase 57 U/L (38-126); Aspartate Amino Transferase 32 U/L (14-36); Bilirubin,Total 0.1 mg/dL (0.2-1.3); Total Protein 8.2 g/dL (6.3-8.2)
[2025-01-11 17:00] LABS: Hepatitis B Surface Antigen Negative (Negative)
[2025-01-11 17:06] LABS: HAV RESULT Negative (Negative); Hepatitis B Core IgM Result Negative (Negative)
== END 2025-01-11 15:37 | disposition home or self-care (01) ==
LOC: ANHLAB 15:41
PROVIDERS: PCP Family Medicine; Visit Provider Family Medicine
DX: R74.01 Elevation of levels of liver transaminase levels (principal)
CPT/HCPCS: 36415; 80074; 80076

== ENCOUNTER 2025-03-22 08:12 | Day surgery (SDC) | payer OTHER, SELFPAY ==
[2025-03-22] VITALS (8 sets, daily range): BP systolic 108–156; BP diastolic 75–101; PULSE 61–91; RESP 14–18; TEMP 36.5; O2SAT 97–100; BMI 29.7
--- NOTE | ~2025-03-22 | XR_ITS ---
EXAMINATION: XR fluoroscopy no charge DATE: 03/22/2025 10:49 INDICATION: MR ablation at the bilateral C2-C3, C3 and C4 medial branch is/dorsal rami TECHNIQUE: 8 fluoroscopic images of the cervical spine were obtained during procedure performed by Dr. Nguyen. Radiologist was not present for the imaging or procedure. The amount of fluoroscopy time used during this procedure was 3.3 minutes. 2 mm radiation dose of 9.92 mGy. COMPARISON: None. FINDINGS: [place] advanced to the region of the bilateral third occipital nerves and C3 and C4 medial branches on both the left and right. IMPRESSION: 1. Fluoroscopy utilized during pain management procedure in the cervical spine. See procedure note for further detail. Reviewed, dictated and finalized at location A.
--- OUTSIDE RECORDS SUMMARY | 2025-03-22 08:38 | XMS_ITS | Clinical Summary ---
Author Organization [facility] Address [address] [place] [address] Care Team Providers Care Rug Cleaner Helper Name Role Phone Kristohper Askew MD Primary Care Provider [phone] Source Comments [facility],non-owned Affiliates and Associated Physician Practices is amultiple site organization consisting of ambulatory clinics and hospital sitesin [place], [place], [place] and [place]. This disclosure is being madepursuant to the Care Everywhere program and may not contain all information available regarding this patient. 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 Gender Identity Not on file Sexual [...] VACCINE (1 - 3-dose SCDM series) 10/31/2018 DEPRESSION SCREENING 06/09/2024 COVID-19 VACCINE (2 - 2024-2 6 season) 2025 09/23/2022 INFLUENZA VACCINE (#1) 2025 2, 04/28/2007 ZOSTER [...] patient's age to complete this topic Insurance [facility] [place]ICA[place] SELF PAY NO INSURANCE Member Subscriber Plan / Payer (Ef fective for All Dates) Name:Jenny Wang Member ID:Not on file Relation to Subscriber:Not on file Name:JENNY WANG Subscriber ID:Not on file (Home) Address: [facility] [address] [place] [address] Payer ID:Not on file Group ID:Not on file Type:Self Pay Address: [place], [place] [address] [employer] LIABILITY [facility] Care Teams Rug Cleaner Helper Relationship Specialty Start Date End Date Kristopher Askew MD [address] [place] [address] PCP - General Family Medicine 09/30/23
--- OUTSIDE RECORDS SUMMARY | 2025-03-22 08:38 | XMS_ITS | Encounter Summary ---
Author Organization [facility] Care Team Providers Care Grapple Skidder Operator Name Role Phone Magy Medina NP Primary Care Provider [phone] Kristopher Askew MD Primary Care Provider [phone] Encounter Details Date Type Department Care Team (Latest Contact Info) Description 03/07/2015 Orders Only [facility] ProviderBarry MD [address] [place] [address] Social History Tobacco Use Types Packs/Day Years Used Date Smoking Tobacco: Never Assessed Comments Unknown Sex and Gender Information Value Date Recorded Sex Assigned at Not on file Legal Sex Female 6:43 PM IMPREGNATOR OPERATOR Gender Identity Not on file Sexual [...] the result is from a facility outside [facility] . 04/20/2022 04/20/2022 04/30/2022 3:05 AM IMPREGNATOR OPERATOR Influenza, adult 04/20/2022 04/20/2022 04/27/2022 3:05 AM IMPREGNATOR OPERATOR documented as of this encounter Care Teams Grapple Skidder Operator Relationship Specialty Start Date End Date Magy Medina NP PCP - General 05/10/19 01/18/25 Kristopher Askew MD [address] [place] [address] PCP - General 01/19/25 documented as of this encounter
--- OUTSIDE RECORDS SUMMARY | 2025-03-22 08:38 | XMS_ITS | Clinical Summary ---
Author Organization [facility] Address [address] [place] [address] Care Team Providers Care Certified Nursing Attendant Name Role Phone Kristopher Askew MD Primary Care Provider [phone] Allergies Active Allergy Reactions Criticality Noted Date [...] Encounters Date Type Department Care Team Description 02/09/2025 Documentation [facility] OP Physical Therapy [address] [facility] [address] [place] [address] Tessie Izaguirre, PT 02/02/2025 8:30 AM CDT Therapy [facility] OP Physical Therapy [address] [place] [address] Laura De Souza, SEISMIC SURVEY ASSISTANT Spondylosis without myelopathy or radiculopathy, cervical region (Primary Dx) 01/31/2025 Documentation [facility] OP Physical Therapy [address] [place] [address] Nery Lu, PT 01/21/2025 11:30 AM CDT Therapy [facility] OP Physical Therapy [address] [place] [address] Manuel Carvalho, SEISMIC SURVEY ASSISTANT Spondylosis without myelopathy or radiculopathy, cervical region (Primary Dx) 01/19/2025 7:45 AM CDT Therapy [facility] OP Physical Therapy [address] [place] [address] Laura De Souza, SEISMIC SURVEY ASSISTANT Spondylosis without myelopathy or radiculopathy, cervical region (Primary Dx) 01/13/2025 10:45 AM CDT Therapy [facility] OP Physical Therapy [address] [place] [address] Nayana Pink, SEISMIC SURVEY ASSISTANT Spondylosis without myelopathy or radiculopathy, cervical region (Primary Dx) 01/11/2025 7:45 AM CDT Therapy [facility] OP Physical Therapy [address] [place] [address] Nayana Pink, SEISMIC SURVEY ASSISTANT Spondylosis without myelopathy or radiculopathy, cervical region (Primary Dx) 01/07/2025 12:00 PM CDT Therapy [facility] OP Physical Therapy [address] [place] [address] Humberto Jacob Jr., PT Spondylosis without myelopathy or radiculopathy, cervical region 01/07/2025 Plan of Care Documentation [facility] OP Physical Therapy [address] [place] [phone] from Last 3 Months Social History Tobacco Use Types Packs/Day Years Used Date Smoking Tobacco: Never Smokeless Tobacco: Never Comments No Sex and Gender Information Value Date Recorded Sex Assigned at Not on file Legal Sex Female 6:43 PM OIL EXPERT Gender Identity Not on file Sexual Orientation Not on file Obstetrics History Last Filed Vital Signs Vital Sign Reading Time Taken Comments Blood Pressure 119/85 04/20/2022 12:33 PM OIL EXPERT Pulse 88 04/20/2022 12:33 PM OIL EXPERT Temperature 37.3 C (99.2 F) 04/20/2022 10:40 AM OIL EXPERT Respiratory Rate 18 04/20/2022 12:3 3 PM OIL EXPERT Oxygen Saturation 99% 04/20/2022 12: 33 PM OIL EXPERT Inhaled Oxygen Concentration - - Weight 88.9 kg (195 lb 15.8 oz) 04/20/2022 8:35 AM OIL EXPERT Height 157.5 cm (5' 2) 04/20/2022 8:35 AM OIL EXPERT Body Mass Index 35.85 04/20/2022 8:35 AM OIL EXPERT Plan of Treatment Health Maintenance Due Date Last Done Comments Cervical Cancer Screening 1991 Depression Screening 1991 Hepatitis C Screening 1991 Varicella Vaccines (1 of 2 - 13+ 2-dose series) 10/31/2004 Regular Well Visit/Exam 18-64 10/31/2009 Pneumococcal vaccine <65 (1 of 2 - PCV) 10/31/2010 Influenza Vaccine (#1) 2025 04/30/2022, 2006 DTaP/Tdap/Td Vaccine (9 - Td or Tdap) 01/10/2034 01/11/2024, 12/15/2014, 12/15/2014, Additional history exists HPV Vaccines Completed 10/28/2007, 06/09, 04/28/2007 Hepatitis B Screening Completed 07/18/2023 , 02/03/2023, 03/16/2002, Additional history exists Insurance [facility] Care Teams Certified Nursing Attendant Relationship Specialty Start Date End Date Kristopher Askew MD [address] [place] [address] PCP - General 01/19/25
--- NOTE | 2025-03-22 09:18 | WPDANESEPPF ---
Anes - Initial Pre Proc Eval Procedure: Operation Date: 03/22/25 10:00 Proposed Procedures p Thermal Radiofrequency Ablation Bilateral C2-3, C3, C4 Medial Branch/Dorsal Rami Supplying Bilateral C2-3, C3-4 Facet Joints under Fluoroscopic Guidance with Contrast Control - Maykel Nguyen MD Date/Time: 03/22/25 09:18 Surgeon: Maykel Nguyen MD Pre Op Diagnosis: Cervical Spondylosis w/o Myelopathy or Radiculop. Patient Data Age: 34 Gender: F Height: 1.55 m Weight: 71.4 kg Last Vital Signs Temp 97.7 F 03/22/25 08:49 Pulse 78 03/22/25 08:49 Resp 16 03/22/25 08:49 BP 140/89 03/22/25 08:49 Pulse Ox 100 03/22/25 08:49 O2 Del Method Room Air 03/22/25 08:49 Allergies Allergy/AdvReac Type Severity Reaction Status Date / Time No Known Allergies Allergy Verified 03/22/25 08:44 Home Medications ?Medication ?Instructions ?Recorded ?Confirmed ?Type albuterol sulfate 90 mcg/actuation 2 puff inhalation Q6H PRN 08/07/23 03/22/25 Rx aerosol inhaler bronchospasm #8.5 grams cetirizine 10 mg tablet 10 mg PO DAILY 08/07/23 03/22/25 History diclofenac sodium 50 mg 50 mg PO DAILY PRN pain 08/07/23 03/22/25 History tablet,delayed release epinephrine 0.3 mg/0.3 mL 0.3 mg (0.3 mL) IM Q4H PRN 08/07/23 03/22/25 Rx injection, auto-injector (EpiPen anaphylaxis #2 ea 2-Deyvi) fluticasone furoate 50 1 inh inhalation Q24H 08/07/23 03/22/25 History mcg/actuation blister powder for inhalation lactobacillus combination no.9 4 4,000 mmu cells PO DAILY 07/23/24 03/22/25 History billion cell capsule (Adult 50 Plus Probiotic) multivitamin (Daily Multi-Vitamin 1 tablet PO DAILY 07/23/24 03/22/25 History tablet) cholecalciferol (vitamin D3) 50 50 mcg PO DAILY 09/17/24 03/22/25 History mcg (2,000 unit) tablet (D3 DOTS) cyclobenzaprine 10 mg tablet 10 mg PO TID PRN prn 09/30/24 03/22/25 History sumatriptan succinate 50 mg tablet 50 mg PO PRN 09/30/24 03/22/25 History topiramate 50 mg tablet 50 mg PO BID PRN PRN 09/30/24 03/22/25 History phentermine 37.5 mg capsule 37.5 mg PO DAILY PRN prn #30 caps 10/07/24 03/22/25 Rx magnesium citrate (Citroma oral 150 ml PO BID PRN constipation 10/18/24 03/22/25 Rx solution) #296 mL estradiol 0.01% (0.1 mg/gram) 1 g vaginal 3XW #42.5 grams 11/25/24 03/22/25 Rx vaginal cream (Estrace) Patient hx anesthesia problems: none and post op nausea/vomiting Family hx anesthesia problems: none Results Review: All pre-operative results and documents have been reviewed as part of the pre-operative evaluation. [facility] Past Medical History Medical History Myofascial pain Chronic pain Elective COPD (chronic obstructive pulmonary disease) Hypertension Asthma Scoliosis Pre-diabetes Surgical History Surgical History H/O: hysterectomy Previous back surgery H/O: Family History Family History Mother Hypertension Asthma Heart disease Diabetes mellitus Acute myocardial infarction Father Acute myocardial infarction Heart disease Grandparent Asthma Diabetes mellitus Hypertension Heart disease Social History Social History Smoking status: Never smoker Alcohol intake: never Substance use: never Substance use type: does not use Living arrangements: with family Additional living arrangements comments: DAUGHTER Spiritual care concerns: No Anes - Eval Final PreProcedure Day of Procedure 03/22/25 09:18 Heart: regular rate and rhythm Lungs: clear to auscultation Airway: Mallampati scale class 1 Neurological: alert and oriented Last oral intake: >/= 8 hours ASA classification: II Anesthetic plan: proceed Anesthesia type and monitoring: monitored anesthesia care Results Review: All pre-operative results and documents have been reviewed as part of the pre-operative evaluation. Informed Consent: The patient's anesthetic plan and its attendant risks and benefits were discussed with the patient/family/POA. Questions were solicited and answers provided to the satisfaction of the patient/family/POA.
--- NOTE | 2025-03-22 09:58 | WPDHPUPDATE1 ---
History and Physical Update Update Date/Time: 03/22/25 09:58 History and Physical has been reviewed, including an updated exam of the patient. There are NO changes in the patient's condition. Risks, benefits, and alternatives have been discussed and questions answered. Patient agrees to proceed with procedure.
[2025-03-22] MEDS: LACTATED RINGERS 1,000 ML 30 ML IV CONT (10:00)
--- NOTE | 2025-03-22 10:00 | W.PM.PROC2 ---
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 Post-op Diagnosis Same Procedure Performed Thermal Radiofrequency Ablation of the bilateral Cervical Medial Branches at C2-3, C3, C4 to ablate the bilateral C2-3, C3-4 facet joints under Fluoroscopic Guidance (4 levels treated). Surgeon Maykel Nguyen MD Environmental [employer] Safety Intern None. Anesthesia Local (w/ IV Moderate Sedation) Description of Procedure INFORMED CONSENT: Risks, benefits and alternatives to the procedure were discussed in detail with the patient who expressed explicit understanding and consent to proceed. Patient was informed verbally and in written form regarding the risks associated with the procedure including the low risk of serious infection, bleeding/bruising, allergic reaction, nerve or organ injury, paralysis, procedural site pain or discomfort, worsening pain and/or mobility, failure to treat and/or disfigurement. The patient expressed explicit understanding and consent to proceed. All materials required for the procedure were available prior to procedure start. Site and side was marked prior to procedure and confirmed in the presence of the patient. PROCEDURE IN DETAIL: The patient was brought to the procedural suite and placed in the prone position with head stabilized with a horseshoe pillow and cervical ramp. Patient was made comfortable with use of pillows under the head/chest, hips and ankles. Skin overlying the injection site on the affected side(s) was prepared broadly with 10mL tinted ChloraPrep applicator and draped in a sterile manner. Strict aseptic technique was utilized throughout. The endplates of the vertebral bodies at the site(s) of interest were aligned in the AP view. Ipsilateral oblique angulation was utilized to optimize visualization of the pars interarticularis at each target site. Local anesthesia was established by infiltration with approximately 5 mL of 1% lidocaine via a 1-1/2 inch 27-gauge needle. An 18-gauge 100mm RF needle with curved 10mm active tip was advanced in the AP view until the needle tip contacted the periosteum of the pars interarticularis at the target site, right C2-3 parallel to the course of the targeted peripheral nerve branch. Lateral view was utilized to adjust and confirm the appropriate placement of the needle tip just anterior to the center point of the interarticularis, bisecting the distance between adjacent joint spaces. The appropriately-sized RF cannula was inserted into the RF needle and motor stimulation performed with no subjective or objective evidence of recruited muscle activity with stimulation up to 2.0 volts at a frequency of 2Hz. A 1.5 mL solution of 2.0% PF lidocaine was injected via the appropriately positioned RF cannula after negative aspiration. The grounding electrode was confirmed to be in place with good contact and functioning appropriately. After a 90s pause, lesioning was performed to 90 degrees centigrade for 90s ensuring lack of symptoms in the extremity throughout. Needle was withdrawn approximately 1-2 mm and rotated 180 degrees at each level. Lesioning was then repeated in a similar manner as above. The patient tolerated this well. No parasthesias were elicited. Needle was removed completely intact without difficulty. The same procedure was then repeated for all intended levels/ structures on the ipsilateral side, right C3, C4, with identical methodology, modified to compensate for new location, with similar results and no evidence of complication. The same procedure was then repeated for all intended levels/ structures on the contralateral side, left C2-3, C3, C4, with identical methodology, modified to compensate for new contralateral location/approach, with similar results and no evidence of complication. Images were saved and documented in the patient's chart. The patient's skin was cleaned and sterile bandages applied. The patient tolerated the procedure well. The patient was transported to the recovery area in stable condition where they were observed for an appropriate amount of time prior to discharge, without evidence of complication. The patient was instructed to avoid excessive activity for the next 48 hours, including overhead work, reaching and device/computer usage. Showers only for 48 hours. They were instructed not to drive or operate heavy machinery for 24 hours. They are to monitor for severe headaches, fevers, chills, night sweats, erythema/swelling at the site or any other signs of infection, bleeding/bruising, bowel or bladder changes as well as new pain, weakness or numbness in the upper or lower extremity. Should they notice these changes, they are instructed to call our office immediately or report directly to the nearest Emergency Department if no answer or if after posted office hours. Complications None Condition Stable Disposition PACU [facility] Billing Surgery - Charge Forward: Surgery Billing
[2025-03-22] MEDS: BUPivacaine HCL 0.5% 10 ML AMP (10:26)
[2025-03-22] MEDS: LIDOCAINE 2% PF LOCAL INJ 5 ML VIAL 10 ML (10:28)
[2025-03-22] MEDS: fentaNYL CITRATE INJ (*CRX) 100 MCG/2 ML VIAL 25 MCG IV PUSH (11:12)
[2025-03-22] MEDS: oxyCODONE HCL (*CRX) 5 MG TAB IR PO ×2 (11:30→12:02)
--- NOTE | 2025-03-22 11:43 | SUR.PHASEII ---
Ok for Ice pack per Dr. Nguyen.
== END 2025-03-22 12:23 | disposition home or self-care (01) ==
PROVIDERS: PCP Family Medicine; Visit Provider Anesthesiology Pain Medicine
PROC: (CPT 64633; principal; 2025-03-22 10:00)
DX: M47.812 Spondylosis without myelopathy or radiculopathy, cervical region (principal); G89.29 Other chronic pain
CPT/HCPCS: 64633; 64634 ×6; 99199